=== PATIENT | female | born 1930 | race Caucasian/White ===

== ENCOUNTER 2019-03-31 00:02 | Inpatient (IN) ==
[2019-03-31] MEDS ORDERED: ONDANSETRON INJ 2 MG/ML 2 ML VIAL IV STA (00:18)
[2019-03-31] MEDS: SODIUM CHLORIDE 0.9% 500 ML IV SCH ×2 (00:55→07:07)
[2019-03-31] MEDS: fentaNYL citrate 100 MCG/2 ML VIAL IV PRN ×2 (00:55→02:39)
[2019-03-31 01:14] LABS: Basophils # (auto) 0.02 K/uL (0-0.2); Basophils % (auto) 0.2 %; Eosinophils # (auto) 0.05 K/uL (0-0.5); Eosinophils % (auto) 0.6 %; Hematocrit (blood only) 38.8 % (37-47); Hemoglobin 13.4 g/dL (12.0-16.0); Immature Granulocytes # (auto) 0.02 K/uL (0.00-0.02); Immature Granulocytes % (auto) 0.2 %; Lymphocytes # (auto) 1.03 K/uL (1.2-3.4); Lymphocytes % (auto) 11.7 %; Mean Corpuscular Hemoglobin 28.6 pg (25-34); Mean Corpuscular Hgb Conc 34.5 g/dL (32-36); Mean Corpuscular Volume 82.7 fL (80-100); Mean Platelet Volume 9.5 fL (7.4-10.4); Monocytes # (auto) 1.09 K/uL (0.11-0.59); Monocytes % (auto) 12.4 %; Neutrophils # (auto) 6.59 K/uL (1.4-6.5); Neutrophils % (auto) 74.9 %; Platelet Count 217 K/uL (130-400); RDW Coefficient of Variation 14.3 % (11.5-14.5); RDW Standard Deviation 42.4 fL (36.4-46.3); Red Blood Count 4.69 M/uL (4.2-5.4)
[2019-03-31 01:32] LABS: Alanine Aminotransferase 17 U/L (12-78); Albumin Level 3.2 gm/dl (3.4-5.0); Aspartate Aminotransferase 13 U/L (15-37); BUN Creatinine Ratio 19.7 (10-20); Blood Urea Nitrogen 24 mg/dl (7-18); Calcium 8.8 mg/dl (8.5-10.1); Carbon Dioxide 25 mmol/L (21-32); Chloride 106 mmol/L (98-107); Est GFR (African American) 46.1; Est GFR (Non-African American) 39.8; Glucose 183 mg/dl (70-99); Lipase 28 U/L (73-393); Magnesium 1.8 mg/dl (1.8-2.4); Potassium 3.4 mmol/L (3.5-5.1); Sodium 139 mmol/L (136-145)
[2019-03-31 01:43] LABS: Albumin Globulin Ratio 1.1 (0.9-2); Alkaline Phosphatase 118 U/L (45-117); Bilirubin,Total 0.7 mg/dl (0.2-1); Thyroid Stimulating Hormone 0.281 uIu/ml (0.300-4.500); Total Protein 6.2 gm/dl (6.4-8.2); Troponin I < 0.015 ng/ml (0-0.045)
[2019-03-31] MEDS ORDERED: IOVERSOL 100ml IV PRN (02:24)
[2019-03-31] MEDS ORDERED: ACETAMINOPHEN 1,000 MG/100 ML VIAL IV STA (03:03)
[2019-03-31] MEDS ORDERED: HydrALAZINE HCL 20 MG/ML VIAL IV ONE (03:04)
[2019-03-31] MEDS ORDERED: POTASSIUM CHLORIDE 20 MEQ TABCR PO STA (05:05)
[2019-03-31] MEDS ORDERED: ACETAMINOPHEN 325 MG TAB PO PRN (05:05)
[2019-03-31] MEDS: HydrALAZINE HCL 20 MG/ML VIAL IV PRN ×3 (06:19→22:14)
[2019-03-31] MEDS: SODIUM CHLORIDE 0.9% 1000ML 1,000 ML IV SCH ×2 (06:20→16:04)
--- NOTE | 2019-03-31 06:34 | CT Scan Report ---
CT abd pelvis oral and IV con CT DOSE: 287.72 mGy.cm HISTORY: Pain central/left abd pain TECHNIQUE: Multiaxial CT images of the abdomen and pelvis were performed following the use of intrave nous and oral contrast. A dose lowering technique was utilized adhering to the principles of ALARA. COMPARISON STUDY: None. FINDINGS: Small bilateral pleural effusions. Splenic infarct versus laceration occupying 40-50% of sp lenic volume. Considerable atherosclerotic change of the abdominal and pelvic arterial vasculature. A trophy left kidney. No evidence for renal hydronephrosis. Liver is uniform throughout. Pancreas is unremarkable. Mild nonobstructive ileus. Bowel pattern overall is nonobstructive. Bladder is midline. No free fluid within the pelvic cul-de-sac IMPRESSION: 1. Probable splenic infarct occupying 40% of the mid and upper pole left splenic volume.. 2. Moderate atrophy left kidney. 3. Mild nonobstructive ileus. 4. Small bilateral pleural effusions. The above report was generated using voice recognition software. It may contain grammatical, syntax or spelling errors. Electronically signed by: Anthony Mosquera M.D. 03/31/2019 6:33 AM
--- NOTE | 2019-03-31 07:23 | Emergency Department Note ---
Entered by Kelly Capps acting as a scribe for Mimi Martin DO History of Present Illness General Chief complaint: Abdominal Pain Stated complaint: ABD PAIN Time Seen by Provider: 03/31/19 00:12 Source: patient and family (daughter) History of Present Illness Onset (ago): day(s) 1 Location: abdomen Radiation: back Pain Consistency: + constant Quality: + sharp Relieved By: + none Exacerbated By: + movement Associated symptoms: + denies other symptoms (denies blood in stool, denies bloating) and + loss of appetite; no nausea/vomiting Treatments prior to arrival: none The patient is a 88 year old female who presents to the Emergency Room with complaints of abdominal pain that started 1 day ago. She stated this morning the pain was in the center of her stomach, but had started to radiate over to her left side and back. The patient notes that the pain in constant and sharp, and has not been able to move much. She denies vomiting, bloating, and blood in her stool. The pain is exacerbated with movement, and the patient has not been able to eat. She reports a loss of appetite as well, and was only able to get down a few spoonfuls of chicken broth today. Her daughter states that she started with diarrhea today, which has since subsided. No black or bloody stools. She also notes that her mother has had a colonoscopy before, which came back normal. She is currently on blood pressure medication. Her daughter notes that her mother lost 60 pounds within the last year, and is now at 120. She does report the swelling in her legs is normal at baseline. 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) DM type 2 (diabetes mellitus, type 2) (Chronic) HTN (hypertension) (Chronic) Surgical History H/O repair of left rotator cuff (Chronic) H/O varicose vein stripping (Chronic) History of appendectomy (Chronic) History of hysterectomy (Chronic) Social History Preferred Language: Thai 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 Ability: Effective [employer] 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 and A total of 10 systems reviewed and were otherwise negative Physical Exam Vital Signs Vital Signs - 24 hr 03/31/19 00:06 03/31/19 01:01 03/31/19 01:07 Temperature 36.8 C 36.8 C Temperature Source Oral Oral Pulse Rate 80 69 Pulse Rate [Left Apical] 78 Pulse Rate from SpO2 Sensor Pulse Strength [Left Apical] Normal Respiratory Rate 18 17 18 Respiratory Effort / Characteristics Non-Labored Spontaneous Non-Labored Spontaneous Respiratory Depth Normal Normal Blood Pressure 172/67 H 184/68 H Blood Pressure [Right Arm] 184/68 H Blood Pressure Mean 102 143 Blood Pressure Mean [Right Arm] 106 Pulse Oximetry 95 95 Oxygen Delivery Method Room Air Room Air Oxygen Flow Rate Sepsis Recent Fever Within 48 Hours No Sepsis Action Taken by Nursing No Action Required Oxygen Flow Rate - Titration Pulse Oximetry Post Tiitration 03/31/19 01:30 03/31/19 02:00 03/31/19 02:38 Temperature Temperature Source Pulse Rate 70 67 73 Pulse Rate [Left Apical] Pulse Rate from SpO2 Sensor 71 Pulse Strength [Left Apical] Respiratory Rate 21 18 23 Respiratory Effort / Characteristics Respiratory Depth Blood Pressure 184/101 H 199/68 H 192/71 H Blood Pressure [Right Arm] Blood Pressure Mean 153 97 146 Blood Pressure Mean [Right Arm] Pulse Oximetry 92 Oxygen Delivery Method Oxygen Flow Rate Sepsis Recent Fever Within 48 Hours Sepsis Action Taken by Nursing Oxygen Flow Rate - Titration Pulse Oximetry Post Tiitration 03/31/19 02:40 03/31/19 02:47 03/31/19 03:00 Temperature 36.8 C Temperature Source Oral Pulse Rate 66 Pulse Rate [Left Apical] 71 Pulse Rate from SpO2 Sensor 66 Pulse Strength [Left Apical] Normal Respiratory Rate 18 19 Respiratory Effort / Characteristics Non-Labored Spontaneous Respiratory Depth Normal Blood Pressure 201/72 H Blood Pressure [Right Arm] 192/71 H Blood Pressure Mean 133 Blood Pressure Mean [Right Arm] 111 Pulse Oximetry 92 84 L 98 Oxygen Delivery Method Room Air Room Air Nasal Cannula Oxygen Flow Rate 0 Sepsis Recent Fever Within 48 Hours Sepsis Action Taken by Nursing Oxygen Flow Rate - Titration 3 Pulse Oximetry Post Tiitration 94 03/31/19 03:02 03/31/19 03:25 03/31/19 03:30 Temperature Temperature Source Pulse Rate 66 71 71 Pulse Rate [Left Apical] Pulse Rate from SpO2 Sensor 66 71 67 Pulse Strength [Left Apical] Respiratory Rate 16 25 H 17 Respiratory Effort / Characteristics Respiratory Depth Blood Pressure 195/68 H 169/76 H 162/60 H Blood Pressure [Right Arm] Blood Pressure Mean 137 130 108 Blood Pressure Mean [Right Arm] Pulse Oximetry 98 97 95 Oxygen Delivery Method Oxygen Flow Rate Sepsis Recent Fever Within 48 Hours Sepsis Action Taken by Nursing Oxygen Flow Rate - Titration Pulse Oximetry Post Tiitration 03/31/19 04:00 Temperature Temperature Source Pulse Rate 69 Pulse Rate [Left Apical] Pulse Rate from SpO2 Sensor 69 Pulse Strength [Left Apical] Respiratory Rate 20 Respiratory Effort / Characteristics Respiratory Depth Blood Pressure 173/66 H Blood Pressure [Right Arm] Blood Pressure Mean 127 Blood Pressure Mean [Right Arm] Pulse Oximetry 97 Oxygen Delivery Method Oxygen Flow Rate Sepsis Recent Fever Within 48 Hours Sepsis Action Taken by Nursing Oxygen Flow Rate - Titration Pulse Oximetry Post Tiitration GENERAL: alert, uncomfortable, in mild distress, non-toxic EYE EXAM: normal conjunctiva, PERRL and EOM's grossly intact OROPHARYNX: no exudate, no erythema, lips, buccal mucosa, and tongue normal. Mildly dry mucous membranes. NECK: supple, no nuchal rigidity, no adenopathy, non-tender LUNGS: Clear to auscultation. Normal chest wall mechanics, no w/r/r HEART: no murmurs, S1 normal and S2 normal ABDOMEN: Pain with palpation of the left mid and left lower abdomen. abdomen soft, normo-active bowel sounds, no masses, no rebound or guarding. BACK: Back is symmetrical on inspection and there is no deformity, no midline tenderness, no CVA tenderness. SKIN: no rashes and no bruising UPPER EXTREMITIES: upper extremities are grossly normal. FROM, nml pulses b/l. LOWER EXTREMITIES: 1+ chronic appearing edema noted to right lower extremity. FROM, nml pulses b/l. NEURO EXAM: Normal sensorium, cranial nerves II-XII grossly intact, normal speech, no gross weakness of arms, no gross weakness of legs. Course Course 0014: The patient was evaluated in room B11B. A complete history and physical exam was performed. 0319: I updated the patient and daughter on her imaging results. She is still having pain, but her blood pressure has improved after medication. 0334: I spoke to Dr. Barry, [facility] hospitalist, regarding the patient. He agreed to take over care of the patient, who is agreeable and will stay for further evaluation. Administered Medications Hydralazine HCl (Hydralazine Hcl) 5 mg IV Q6H PRN PRN Reason: Hypertension Stop: 04/30/19 05:04 Last Admin: 03/31/19 06:19 Dose: 5 mg Documented by: [id number] Sodium Chloride (Nss 1000ml) 1,000 mls @ 100 mls/hr IV .Q10H WYATT Stop: 04/30/19 05:04 Last Admin: 03/31/19 06:20 Dose: 100 mls/hr Documented by: [id number] Discontinued Medications Fentanyl Citrate (Fentanyl Citrate) 50 mcg IV Q15M PRN PRN Reason: Pain Stop: 04/14/19 00:17 Last Admin: 03/31/19 02:39 Dose: 50 mcg Documented by: [id number] Admin: 03/31/19 00:55 Dose: 50 mcg Documented by: [id number] Hydralazine HCl (Hydralazine Hcl) 5 mg IV NOW ONE Stop: 03/31/19 03:05 Last Admin: 03/31/19 03:14 Dose: 5 mg Documented by: [id number] Sodium Chloride (Nss) 500 mls @ 125 mls/hr IV .Q4H WYATT Stop: 04/30/19 00:29 Last Admin: 03/31/19 07:07 Dose: Not Given Documented by: [id number] Infusion: 03/31/19 04:25 Dose: 0 mls/hr Documented by: [id number] Admin: 03/31/19 00:55 Dose: 125 mls/hr Documented by: [id number] Acetaminophen (Ofirmev) 1,000 mg in 100 mls @ 400 mls/hr IV NOW STA Stop: 03/31/19 03:17 Last Infusion: 03/31/19 04:26 Dose: 0 mls/hr Documented by: [id number] Admin: 03/31/19 03:14 Dose: 400 mls/hr Documented by: [id number] Ioversol (Optiray 320 100ml) 94 ml IV ONCE PRN PRN Reason: Interaction Checking Stop: 04/04/19 02:23 Last Admin: 03/31/19 02:24 Dose: 94 ml Documented by: [id number] Ondansetron HCl (Zofran) 4 mg IV NOW STA Stop: 03/31/19 00:19 Last Admin: 03/31/19 00:55 Dose: 4 mg Documented by: [id number] Potassium Chloride (Klor-Con M20) 20 meq PO NOW STA Stop: 03/31/19 05:06 Last Admin: 03/31/19 06:20 Dose: 20 meq Documented by: [id number] Medical Decision Making Differential Diagnosis Differential diagnosis includes: appendicitis, diverticulitis, PUD, biliary pathology, UTI, pancreatitis, obstruction, mesenteric ischemia, aortic pathology, infections, inflammatory bowel disease, renal colic, as well as others were entertained. Medical Records Attestation: I reviewed the patient's medical records. Home Medications Current Medication List: was personally reviewed by me Laboratory Data Attestation: I reviewed the patient's lab results. Result diagrams: 03/31/19 01:06 03/31/19 01:06 Lab Results 03/31/19 03/31/19 03/31/19 Range/Units 00:47 01:06 01:06 WBC 8.80 (4.8-10.8) K/uL RBC 4.69 (4.2-5.4) M/uL Hgb 13.4 (12.0-16.0) g/dL Hct 38.8 (37-47) % MCV 82.7 (80-100) fL MCH 28.6 (25-34) pg MCHC 34.5 (32-36) g/dL RDW Std Deviation 42.4 (36.4-46.3) fL RDW Coeff of Dion 14.3 (11.5-14.5) % Plt Count 217 (130-400) K/uL MPV 9.5 (7.4-10.4) fL Immature Gran % (Auto) 0.2 % Neut % (Auto) 74.9 % Lymph % (Auto) 11.7 % [place] % (Auto) 12.4 % Eos % (Auto) 0.6 % Baso % (Auto) 0.2 % Immature Gran # (Auto) 0.02 (0.00-0.02) K/uL Neut # (Auto) 6.59 H (1.4-6.5) K/uL Lymph # (Auto) 1.03 L (1.2-3.4) K/uL [place] # (Auto) 1.09 H (0.11-0.59) K/uL Eos # (Auto) 0.05 (0-0.5) K/uL Baso # (Auto) 0.02 (0-0.2) K/uL Sodium 139 (136-145) mmol/L Potassium 3.4 L (3.5-5.1) mmol/L Chloride 106 (98-107) mmol/L Carbon Dioxide 25 (21-32) mmol/L Anion Gap 8.0 (3-11) BUN 24 H (7-18) mg/dl Creatinine 1.22 H (0.6-1.2) mg/dl Est Cr Clr Drug Dosing Not Reportable Est GFR ( Amer) 46.1 Est GFR (Non-Af Amer) 39.8 BUN/Creatinine Ratio 19.7 (10-20) Glucose 183 H (70-99) mg/dl POC Lactic Acid Kevan 0.84 L (0.90-1.70) mmol/L Calcium 8.8 (8.5-10.1) mg/dl Magnesium 1.8 (1.8-2.4) mg/dl Total Bilirubin 0.7 (0.2-1) mg/dl AST 13 L (15-37) U/L ALT 17 (12-78) U/L Alkaline Phosphatase 118 H (45-117) U/L Troponin I < 0.015 (0-0.045) ng/ml Total Protein 6.2 L (6.4-8.2) gm/dl Albumin 3.2 L (3.4-5.0) gm/dl Globulin 3.0 (2.5-4.0) gm/dl Albumin/Globulin Ratio 1.1 (0.9-2) Lipase 28 L (73-393) U/L TSH 0.281 L (0.300-4.500) uIu/ml Imaging Data Radiologist's Impression: Radiology results as stated below per my review and the radiologist's interpretation: CT ABDOMEN & PELVIS With Contrast: Splenic infarct involving approximately 25% of the splenic parenchyma. 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 Atrophic left kidney also likelye related to vascular insufficiency. Small bilateral pleural effusions. Status post hysterectomy. Sigmoid diverticulosis without diverticullitis. Radiologist: Ranulfo Cabrera MD Study ready at 02:44 and initial results transmitted at 03:12 ECG Data Attestation: I personally reviewed and interpreted this ECG as follows: Indication: + abdominal pain Rate (beats per minute): 71 Rhythm: + sinus rhythm ECG Intervals/blocks: + Left bundle branch block ECG [place]: + Left axis deviation ECG Findings: + Other (no acute ischemic changes) Comparison ECG Date: from (02/10/16) Change: the following changes noted (LBBB is new from previous ) Blood Pressure Blood Pressure Findings: Elevated blood pressure Blood Pressure Disposition: further management by hospitalist JOHNATHAN Jean-Baptiste Patient here in mild distress with persistent abdominal pain and episode of vomiting as well as an episode of diarrhea. Given advanced age, labs drawn and sent, IV fluids started, and patient sent for CT imaging. Patient remained hemodynamically stable throughout. Patient did have brief episode of hypoxia after she was given IV fentanyl for pain control. Additional IV Tylenol was added. IV Zofran was used for nausea. Discussed with patient all results. Likely splenic infarct related to atherosclerotic disease. Upon additional bedside discussion, patient's daughter bedside states the patient has not always compliant with her medications including her current statin. Patient did have persistently elevated blood pressure here despite additional pain control. Additional dose of hydralazine was added. No evidence of bacteremia/sepsis, bowel obstruction, GI bleed, perforation, DKA, or AMARIS. Patient and daughter aware of all results were in agreement with plan for additional monitoring, pain control, and evaluation. Impression & Plan Abdominal pain, Hypertension, Splenic infarct Discharge Plan Visit Data *Final* Discharge Date/Time: 03/31/19 04:24 Chief Complaint: Abdominal Pain Stated Complaint: ABD PAIN ED Provider: Mimi Martin Discharge Problem: Abdominal pain, Hypertension, Splenic infarct Patient Disposition: Admitted As Inpatient Discharge Instructions Interventions: ED Discharge Assessment Last Done: 03/31/19 04:24 Discharge Problem: Abdominal pain Qualifiers: Abdominal location: unspecified location Qualified Code(s): R10.9 - Unspecified abdominal pain Hypertension Qualifiers: Hypertension type: unspecified Qualified Code(s): I10 - Essential (primary) hypertension The scribe's documentation has been prepared under my direction and personally reviewed by me in its entirety. I confirm that the note above accurately reflects all work, treatment, procedures, and medical decision making performed by me.
[2019-03-31 07:46] LABS: Chol HDL Ratio 4; Cholesterol 130 mg/dl (0-200); HDL Cholesterol 37 mg/dl; LDL Cholesterol Calculated 73 mg/dl; Triglycerides 99 mg/dl (0-150); VLDL Cholesterol 20 mg/dl
[2019-03-31] MEDS: ASPIRIN 81 MG ECTAB PO SCH (08:22)
[2019-03-31] MEDS: cloNIDine HCL 0.3 MG TAB PO SCH ×2 (08:22→20:08)
[2019-03-31] MEDS ORDERED: carvediloL 12.5 MG TAB PO SCH (09:00)
[2019-03-31] MEDS: AMLODIPINE BESYLATE 5 MG TAB PO SCH (09:29)
--- NOTE | 2019-03-31 10:03 | Surgery Consultation ---
Date of Consultation March 31, 2019 Assessment & Plan (1) Splenic infarct: 88-year-old female with partial splenic infarct likely secondary to significant atherosclerotic disease related to thromboembolic event. Splenic infarction is managed nonoperatively with pain control. Typically patients are anticoagulated as this is likely due to thromboembolic event in the absence of sickle cell anemia. Agree with work-up for determining the underlying source. Her weight loss is concerning, and may represent chronic mesenteric ischemia leading to food fear. We discussed with the patient whether she would want any life-saving operative interventions, and she said that she would not want surgery. No surgical intervention indicated at this time Agree with work-up for source of thromboembolic splenic infarction Consider anticoagulation Surgery will follow peripherally, call with questions or concerns (2) CHF due to valvular disease: (3) DM type 2 (diabetes mellitus, type 2): (4) Hypertension: History of Present Illness Attending Physician: Brisa Lopez MD History of Present Illness 88-year-old female admitted with abdominal pain and splenic infarction. She has been losing weight over the past year, she states approximately 60 to 70 pounds. She denies any food fear or pain after eating, though she does not have much of an appetite does feel ill after eating. Yesterday she started having significant left-sided abdominal pain that progressed. She was taken to the emergency department where a CT scan of her abdomen showed partial infarction of her spleen. On CT she does have significant atherosclerotic disease at the orifice of the celiac trunk and SMA. 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) DM type 2 (diabetes mellitus, type 2) (Chronic) HTN (hypertension) (Chronic) Surgical History H/O repair of left rotator cuff (Chronic) H/O varicose vein stripping (Chronic) History of appendectomy (Chronic) History of hysterectomy (Chronic) Social History Preferred Language: Afghan 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 Ability: Effective Net Mobile Developer Required: No Beliefs That Will Affect Care: None Current Living Situation: Family Current Living Situation Comment: lives w/ dtr Feels Safe at Home: Yes Smoking Status: Former smoker Hx Alcohol Use: No Hx Substance Use: No Review of Systems Review of Systems: All systems reviewed & are unremarkable except as noted in HPI & below Physical Exam Constitutional: WD/WN, vitals as above Eyes: PERRL, conjunctivae normal, anicteric sclerae ENMT: external ear and nose normal, oropharynx normal Neck: trachea midline, no thyromegaly Respiratory: normal respiratory effort, lungs clear to auscultation Cardiovascular: RRR, no murmur, no edema Gastrointestinal (Abdomen): Percussion/Palpation: + abdomen tender (Mild tenderness to palpation in the left upper quadrant and left flank) and abdomen soft; no guarding, abdomen not rigid and no hepatosplenomegaly Musculoskeletal: no cyanosis or clubbing, extremities motor strength 5/5 Skin: no rashes, warm and dry Neurologic: PERRL, EOMI, accommodation nl, no face palsy, no dysarthria Psychiatric: A+Ox3, euthymic affect Lymphatic: no cervical or axillary lymphadenopathy Results & Data Vital Signs (Past 12 Hours) Vital Signs Temp Pulse Pulse Resp BP BP Pulse Ox 03/31/19 07:23 36.6 C 65 66 17 172/63 H 99 03/31/19 05:00 36.7 C 72 18 177/65 H 94 03/31/19 04:00 69 20 173/66 H 97 03/31/19 03:30 71 17 162/60 H 95 03/31/19 03:25 71 25 H 169/76 H 97 03/31/19 03:02 66 16 195/68 H 98 03/31/19 03:00 66 19 201/72 H 98 03/31/19 02:47 84 L 03/31/19 02:40 36.8 C 71 18 192/71 H 92 03/31/19 02:38 73 23 192/71 H 92 03/31/19 02:00 67 18 199/68 H 03/31/19 01:30 70 21 184/101 H 03/31/19 01:07 36.8 C 78 18 184/68 H 95 03/31/19 01:01 69 17 184/68 H 03/31/19 00:06 36.8 C 80 18 172/67 H 95 Laboratory Results Laboratory Results - last 24 hr 03/31/19 03/31/19 03/31/19 00:47 01:06 01:06 WBC 8.80 RBC 4.69 Hgb 13.4 Hct 38.8 MCV 82.7 MCH 28.6 MCHC 34.5 RDW Std Deviation 42.4 RDW Coeff of Dion 14.3 Plt Count 217 MPV 9.5 Immature Gran % (Auto) 0.2 Neut % (Auto) 74.9 Lymph % (Auto) 11.7 [place] % (Auto) 12.4 Eos % (Auto) 0.6 Baso % (Auto) 0.2 Immature Gran # (Auto) 0.02 Neut # (Auto) 6.59 H Lymph # (Auto) 1.03 L [place] # (Auto) 1.09 H Eos # (Auto) 0.05 Baso # (Auto) 0.02 Sodium 139 Potassium 3.4 L Chloride 106 Carbon Dioxide 25 Anion Gap 8.0 BUN 24 H Creatinine 1.22 H Est Cr Clr Drug Dosing Not Reportable Est GFR ( Amer) 46.1 Est GFR (Non-Af Amer) 39.8 BUN/Creatinine Ratio 19.7 Glucose 183 H POC Lactic Acid Kevan 0.84 L Calcium 8.8 Magnesium 1.8 Total Bilirubin 0.7 AST 13 L ALT 17 Alkaline Phosphatase 118 H Troponin I < 0.015 Total Protein 6.2 L Albumin 3.2 L Globulin 3.0 Albumin/Globulin Ratio 1.1 Triglycerides Cholesterol LDL Cholesterol, Calc VLDL Cholesterol, Calc HDL Cholesterol Cholesterol/HDL Ratio Lipase 28 L TSH 0.281 L 03/31/19 06:50 WBC RBC Hgb Hct MCV MCH MCHC RDW Std Deviation RDW Coeff of Dion Plt Count MPV Immature Gran % (Auto) Neut % (Auto) Lymph % (Auto) [place] % (Auto) Eos % (Auto) Baso % (Auto) Immature Gran # (Auto) Neut # (Auto) Lymph # (Auto) [place] # (Auto) Eos # (Auto) Baso # (Auto) Sodium Potassium Chloride Carbon Dioxide Anion Gap BUN Creatinine Est Cr Clr Drug Dosing Est GFR ( Amer) Est GFR (Non-Af Amer) BUN/Creatinine Ratio Glucose POC Lactic Acid Kevan Calcium Magnesium Total Bilirubin AST ALT Alkaline Phosphatase Troponin I Total Protein Albumin Globulin Albumin/Globulin Ratio Triglycerides 99 Cholesterol 130 LDL Cholesterol, Calc 73 VLDL Cholesterol, Calc 20 HDL Cholesterol 37 Cholesterol/HDL Ratio 4 Lipase TSH Diagnostic Findings CT abd pelvis oral and IV con CT DOSE: 287.72 mGy.cm HISTORY: Pain central/left abd pain TECHNIQUE: Multiaxial CT images of the abdomen and pelvis were performed following the use of intravenous and oral contrast. A dose lowering technique was utilized adhering to the principles of ALARA. COMPARISON STUDY: None. FINDINGS: Small bilateral pleural effusions. Splenic infarct versus laceration occupying 40-50% of splenic volume. Considerable atherosclerotic change of the abdominal and pelvic arterial vasculature. Atrophy left kidney. No evidence for renal hydronephrosis. Liver is uniform throughout. Pancreas is unremarkable. Mild nonobstructive ileus. Bowel pattern overall is nonobstructive. Bladder is midline. No free fluid within the pelvic cul-de-sac IMPRESSION: 1. Probable splenic infarct occupying 40% of the mid and upper pole left splenic volume.. 2. Moderate atrophy left kidney. 3. Mild nonobstructive ileus. 4. Small bilateral pleural effusions. PG Care Time/CCT Total # of Minutes Spent Total Time Spent with Patient: Total time spent is greater than 50% in coordination of care (as documented) at patient's floor/unit and/or counseling patient: (1) Hypertension Hypertension type: unspecified Qualified Code(s): I10 - Essential (primary) hypertension
--- NOTE | 2019-03-31 10:20 | Ultrasound Report ---
US venous doppler LE RT CLINICAL HISTORY: rt lower extremity swelling, dvt? PAIN. EDEMA. COMPARISON STUDY: No previous studies for comparison. FINDINGS: Real-time and color flow Doppler imaging were performed. Flow was seen within the femoral, popliteal and calf veins with no intraluminal thrombus demonstrated. The saphenous vein is patent. IMPRESSION: No evidence of deep venous thrombosis. The above report was generated using voice recognition software. It may contain grammatical, syntax or spelling errors. Electronically signed by: Anthony Mosquera M.D. 03/31/2019 10:18 AM
--- NOTE | 2019-03-31 11:30 | Ultrasound Report ---
US thyroid HISTORY: Mass ENLARGEMENT? COMPARISON: None. FINDINGS: Right lobe: Maximum dimension 4.6 cm. Several small calcifications. Several small nodules less than 6 mm. Left lobe: Maximum dimension 6 cm. Several small nodules are present. Largest measures 1.3 cm and lo wer pole left thyroid. Isthmus: No nodules. IMPRESSION: 1. Moderate thyroid inhomogeneity. 2. Several small nodules bilaterally. 3. 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 The above report was generated using voice recognition software. It may contain grammatical, syntax or spelling errors. Electronically signed by: Anthony Mosquera M.D. 03/31/2019 11:29 AM
--- NOTE | 2019-03-31 15:01 | Hospitalist Progress Note ---
Date of Service March 31, 2019 Assessment & Plan (1) Abdominal pain: (2) Splenic infarct: LUQ pain CT show splenic infarct Patient also has calcification in the aorta in my review of the images She also reports Right LE DVT many years ago for which she was on coumadin for some months. Right LE doppler negative for DVT Will get portal venous doppler to look for possible clot Echo report noted. 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 (3) Hypertension: BP is currently poorly controlled Likely due to pain Optimize pain control Continue carvedilol, clonidine, amlodipine Monitor BP. Once pain is well controlled, if still high, will optimize antihypertensives (4) DVT prophylaxis: Hep sq for now Subjective Patient admitted overnight. Reported LUQ abdominal pain started one day ago, sharp, severe, not referred, worse on palpation. Associated with nausea and one episode of loose stool Denied any fevers, chills. Denied any bloody bowel movement Denied any cough, shortness of breath, chest pain Denied any trauma to abdomen Review of Systems Review of Systems: All systems reviewed and unremarkable except for mentioned above. Physical Exam Constitutional: General: Elderly woman, laying in bed, no acute distress Eyes: PERRL, conjunctivae normal, EOM intact bilaterally ENMT: External ear and nose normal, oropharynx normal Neck: Normal visual inspection, no tracheal deviation, no swelling noted Respiratory: Normal respiratory effort, no respiratory distress, lungs clear to auscultation, no crackles and no wheezes Cardiovascular: Pulse is regular with occasional skipped beat, Normal rate, S1 S2 Chest (Breasts): Chest: normal inspection of chest Gastrointestinal (Abdomen): Abdomen is not distended, soft, severe LUQ and LLQ tenderness, no guarding, normal bowel sounds Musculoskeletal: No cyanosis or clubbing, all extremities motor strength 5/5, Right leg bigger than left. Trace edema Skin: No rash noted on gross inspection, No ulcers noted Neurologic: Alert and oriented x 3, No focal weakness, sensation grossly intact Psychiatric: Alert and oriented x 3, euthymic affect, no depressed affect Results & Data Vital Signs (Past 12 Hours) Vital Signs Temp Pulse Pulse Resp BP BP Pulse Ox 03/31/19 14:50 73 03/31/19 11:33 36.7 C 63 19 178/62 H 95 03/31/19 07:23 36.6 C 65 66 17 172/63 H 99 03/31/19 05:00 36.7 C 72 18 177/65 H 94 03/31/19 04:00 69 20 173/66 H 97 03/31/19 03:30 71 17 162/60 H 95 03/31/19 03:25 71 25 H 169/76 H 97 03/31/19 03:02 66 16 195/68 H 98 03/31/19 03:00 66 19 201/72 H 98 Laboratory Results Abnormal lab results 03/31/19 03/31/19 03/31/19 Range/Units 00:47 01:06 01:06 Neut # (Auto) 6.59 H (1.4-6.5) K/uL Lymph # (Auto) 1.03 L (1.2-3.4) K/uL [place] # (Auto) 1.09 H (0.11-0.59) K/uL Potassium 3.4 L (3.5-5.1) mmol/L BUN 24 H (7-18) mg/dl Creatinine 1.22 H (0.6-1.2) mg/dl Glucose 183 H (70-99) mg/dl POC Lactic Acid Kevan 0.84 L (0.90-1.70) mmol/L AST 13 L (15-37) U/L Alkaline Phosphatase 118 H (45-117) U/L Total Protein 6.2 L (6.4-8.2) gm/dl Albumin 3.2 L (3.4-5.0) gm/dl Lipase 28 L (73-393) U/L TSH 0.281 L (0.300-4.500) uIu/ml Diagnostic Findings CT A/P 1. Probable splenic infarct occupying 40% of the mid and upper pole left splenic volume.. 2. Moderate atrophy left kidney. 3. Mild nonobstructive ileus. 4. Small bilateral pleural effusions. (1) Abdominal pain Abdominal location: unspecified location Qualified Code(s): R10.9 - Unspecified abdominal pain (2) Hypertension Hypertension type: unspecified Qualified Code(s): I10 - Essential (primary) hypertension
[2019-03-31] MEDS: HYDROmorphone INJ 0.5 MG/0.5 ML SYR IV PRN (15:46)
--- NOTE | 2019-03-31 16:56 | Cardiology Consultation ---
Date of Consultation March 31, 2019 Assessment & Plan (1) Splenic infarct: (2) HTN (hypertension): (3) LBBB (left bundle branch block): The patient has a new left bundle branch block compared to 2016. Her EKG troponin was negative x1, and I think we can explain her symptoms based on the findings on the CT, I believe the abdominal pain is due to splenic infarction rather than angina at present. In terms of cardiac source of embolism. Telemetry thus far has revealed sinus rhythm on my review without atrial fibrillation. She does however have substrate for atrial fibrillation as she has mild mitral stenosis on her echocardiogram. She has significant mitral annular calcification. Review of her CT images reveal diffuse calcified and noncalcified atherosclerotic plaque in the abdominal aorta and abdominal vasculature. She may have had embolism of a atherosclerotic plaque without thrombus. The echocardiogram also reveals a mobile echodensity in the left atrium that appears to be consistent with a ruptured chordae which correlates with her mitral regurgitation jet well. The piece of this may have embolized also. At present, given her ongoing symptoms I recommend initiating anticoagulation with heparin. She apparently had been on Coumadin for 9 years for past DVT. This was discontinued because her course of treatment was felt to be completed not because of an intolerance. Her blood pressure remains above goal, but I think this is in part due to her pain, and that we anticoagulate her, and provide analgesic discomfort, I would hope that the blood pressure would improve. I also recommend a lactate level which can be trended. Further considerations include proceeding with a transesophageal echocardiogram depending upon her clinical course. Case discussed with Dr. Lopez by phone. History of Present Illness Attending Physician: Brisa Lopez MD History of Present Illness Lety Higuera is an 88 year old female seen in cardiology consultation due to presentation with abdominal pain, and finding of left splenic infarct on CT scan. The patient does not follow with cardiology on a routine basis. She is accompanied by her daughter who describes that the patient was recently admitted in [facility] for a myocardial infarction a little over a week ago. At that time she had presented initially with abdominal pain that then progressed into chest pain. Per the description of the patient and her daughter, it sounds as though the patient was treated conservatively did not have cardiac catheterization. The patient was in her normal state of health and started having first recurrent chest discomfort on , and this resolved and it progressed to abdominal discomfort throughout the day yesterday, [place], until her family brought her to the emergency room overnight last night. Troponin was negative times one measurement on 03/31/19. A CT of the abdomen and pelvis was performed morning in the emergency room with findings of a suspected splenic infarct occupying 40% of the mid and upper pole of the splenic volume per the radiology report. Moderate atrophy of the left kidney was noted. Mild nonobstructive ileus was noted and small bilateral pleural effusions are present. An echocardiogram performed today reviewed independently revealed moderate concentric left ventricular hypertrophy without regional wall motion abnormalities, LVEF normal 55 to 60%. Moderate left atrial dilatation was noted. Mild aortic valve stenosis and moderate aortic valve regurgitation were present. Severe mitral annular calcification was noted with mild mitral stenosis. Moderate to severe mitral regurgitation was present with a posteriorly directed mitral regurgitation jet that hugs the posterior left atrial wall. A 1.6 x 0.5 cm mobile echodensity was noted on the left atrial aspect of the anterior mitral valve consistent with a ruptured cord. Pulmonary hypertension is present with PA systolic pressure in the range of 54 mmHg. 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) DM type 2 (diabetes mellitus, type 2) (Chronic) HTN (hypertension) (Chronic) Surgical History H/O repair of left rotator cuff (Chronic) H/O varicose vein stripping (Chronic) History of appendectomy (Chronic) History of hysterectomy (Chronic) Social History Preferred Language: Bahraini 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 Ability: Effective 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 Beliefs That Will Affect Care: None marital status: / Current Living Situation: Family Current Living Situation Comment: lives w/ dtr Feels Safe at Home: Yes Smoking Status: Former smoker Hx Alcohol Use: No Hx Substance Use: No Review of Systems Review of Systems: All systems reviewed & are unremarkable except as noted in HPI & below Physical Exam Physical Exam: Temp Pulse Resp BP Pulse Ox 37.1 C 86 19 204/72 H 92 03/31/19 15:58 03/31/19 15:58 03/31/19 15:58 03/31/19 15:58 03/31/19 15:58 Constitutional: WD/WN, vitals as above Respiratory: normal respiratory effort, lungs clear to auscultation Cardiovascular: Rate/Rhythm: regular rhythm Heart Sounds: + murmur (II/ systolic murmur heard best in the left apex rating to the left axilla) Vessels: no JVD Extremities: no edema Gastrointestinal (Abdomen): Mild tenderness of the left upper quadrant on palpation Neurologic: PERRL, EOMI, accommodation nl, no face palsy, no dysarthria Results & Data Vital Signs (Past 12 Hours) Vital Signs Temp Pulse Pulse Resp BP Pulse Ox 03/31/19 15:58 37.1 C 86 19 204/72 H 92 03/31/19 15:55 173/62 H 03/31/19 14:50 73 03/31/19 11:33 36.7 C 63 19 178/62 H 95 03/31/19 07:23 36.6 C 65 66 17 172/63 H 99 03/31/19 05:00 36.7 C 72 18 177/65 H 94 Diagnostic Findings EKG performed 03/31/2019 at 12:58 AM: Sinus rhythm at 71 bpm with premature atrial contractions, left bundle branch block, QRS duration 150 ms. Compared to the most recent EKG on file dating back to 02/10/2016, left bundle branch block is new. Medications Administered Current Inpatient Medications Acetaminophen (Tylenol) 650 mg PO Q4H PRN PRN Reason: Pain or Fever Stop: 04/30/19 05:04 Amlodipine Besylate (Norvasc) 10 mg PO DAILY [facility] Stop: 04/30/19 08:59 Last Admin: 03/31/19 09:29 Dose: 10 mg Documented by: Aspirin (Ecotrin Ectab) 81 mg PO DAILY [facility] Stop: 04/30/19 08:59 Last Admin: 03/31/19 08:22 Dose: 81 mg Documented by: Carvedilol (Coreg) 12.5 mg PO BID [facility] Stop: 04/30/19 08:59 Last Admin: 03/31/19 08:21 Dose: 12.5 mg Documented by: Clonidine HCl (Catapress) 0.3 mg PO BID [facility] Stop: 04/30/19 08:59 Last Admin: 03/31/19 08:22 Dose: 0.3 mg Documented by: Heparin Sodium (Porcine) (Heparin Sodium (Porcine)) 5,000 units SQ Q8 [facility] Stop: 04/30/19 21:59 Heparin Sodium/Dextrose () 1 ea IV NOW STA; Protocol Stop: 03/31/19 17:02 Hydralazine HCl (Hydralazine Hcl) 5 mg IV Q6H PRN PRN Reason: Hypertension Stop: 04/30/19 05:04 Last Admin: 03/31/19 16:06 Dose: 5 mg Documented by: Hydromorphone HCl (Dilaudid) 0.5 mg IV Q3H PRN PRN Reason: Pain Stop: 04/14/19 05:04 Last Admin: 03/31/19 15:46 Dose: 0.5 mg Documented by: Sodium Chloride (Nss 1000ml) 1,000 mls @ 100 mls/hr IV .Q10H [facility] Stop: 04/30/19 05:04 Last Admin: 03/31/19 16:04 Dose: 100 mls/hr Documented by: Heparin Sodium/Dextrose (Heparin Sodium/Dextrose) 25,000 units in 500 mls @ 0.02 mls/hr IV .Q24H [facility]; Protocol Stop: 04/30/19 17:14 Nitroglycerin (Nitrostat) 0.4 mg SL UD PRN PRN Reason: Chest Pain Stop: 04/30/19 05:04 Ondansetron HCl (Zofran) 4 mg IV Q6H PRN PRN Reason: Nausea Stop: 04/30/19 05:04
[2019-03-31] MEDS ORDERED: Heparin IV Low Dose *NO* Bolus IV SCH (17:05)
[2019-03-31] MEDS: ONDANSETRON INJ 2 MG/ML 2 ML VIAL IV PRN (17:12)
--- NOTE | 2019-03-31 17:17 | Ultrasound Report ---
Study: Doppler evaluation of the portal and hepatic venous system HISTORY: Venous thrombosis FINDINGS: The major venous structures including splenic vein, portal veins, as well as hepatic veins appear unremarkable. Flow is antegrade. No evidence for thrombus. IMPRESSION:: 1. Normal study. 2. No evidence for thrombus formation within the portal, splenic, or hepatic venous systems. Electronically signed by: Anthony Mosquera M.D. 03/31/2019 5:16 PM
[2019-03-31 17:47] LABS: Basophils # (auto) 0.02 K/uL (0-0.2); Basophils % (auto) 0.2 %; Eosinophils % (auto) 0.9 %; Hematocrit (blood only) 39.8 % (37-47); Hemoglobin 13.3 g/dL (12.0-16.0); Immature Granulocytes # (auto) 0.06 K/uL (0.00-0.02); Immature Granulocytes % (auto) 0.5 %; Lymphocytes # (auto) 1.01 K/uL (1.2-3.4); Lymphocytes % (auto) 8.9 %; Mean Corpuscular Volume 83.8 fL (80-100); Mean Platelet Volume 9.3 fL (7.4-10.4); Monocytes # (auto) 1.54 K/uL (0.11-0.59); Monocytes % (auto) 13.6 %; Neutrophils # (auto) 8.62 K/uL (1.4-6.5); Neutrophils % (auto) 75.9 %; Platelet Count 225 K/uL (130-400); RDW Coefficient of Variation 14.5 % (11.5-14.5); RDW Standard Deviation 44.6 fL (36.4-46.3); Red Blood Count 4.75 M/uL (4.2-5.4); White Blood Count 11.35 K/uL (4.8-10.8)
[2019-03-31 18:07] LABS: INR 1.1 (0.9-1.1); Partial Thromboplastin Time 27.3 Seconds (21.0-31.0); Prothrombin Time 11.5 Seconds (9.0-12.0)
[2019-03-31] MEDS: HEPARIN SODIUM/DEXTROSE 25,000 UNITS/500 ML BAG IV SCH (18:09)
[2019-03-31] MEDS: carvediloL 25 MG TAB PO SCH (18:13)
[2019-03-31] MEDS: ATORVASTATIN 20 MG TAB PO SCH (18:13)
[2019-03-31 18:28] LABS: Mean Corpuscular Hgb Conc 33.4 g/dL (32-36)
--- NOTE | 2019-03-31 19:56 | History and Physical Report ---
DATE OF ADMISSION: 03/31/2019 CHIEF COMPLAINT: Severe abdominal pain. 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 Lives with her daughter. She is currently living in [place] and sometimes come to [place]. Last time she saw her family doctor at [place] in 2016. She says currently she is following with doctors in [place] .They are visiting [place] and she is not feeling well since yesterday. Since 24 hours, she is having significant left upper quadrant abdominal pain, also some nausea. She had few episode of diarrhea yesterday. No blood in the stools. The diarrhea has improved now. Poor appetite because of pain and nausea, feeling hot and cold, no headaches. Sometimes she gets dizziness, vision is okay. Hearing is okay. Has some runny nose, no sore throat since yesterday. No difficulty swallowing, no chest pain, no shortness of breath. At home, she ambulates without any help. She has chronic swelling in the right lower extremity. No rash. Normal bladder movements. No burning micturitions, no hematuria, no blood in the stools. Currently with the pain medication, pain has improved. Resting comfortably. CAT scan unofficial report shows space splenic infarct. ALLERGIES: PENICILLINS, QUINOLONES, ASPIRIN. PAST MEDICAL HISTORY: As mentioned above. PAST SURGICAL HISTORY: Lasik surgery, appendectomy, left rotator cuff repair, varicose veins x2, gastric ulcer repair, total hysterectomy for fibroids. MEDICATIONS: Seems to be patient currently on amlodipine 10 mg p.o. daily, aspirin 81 mg p.o. daily, Coreg 12.5 mg p.o. b.i.d., clonidine 0.3 mg p.o. b.i.d. FAMILY HISTORY: Significant for father had liver cancer, [place] at age of 50s. Mother had stroke, hypertension, diabetes. Brother has diabetes. brother of [place]. SOCIAL HISTORY: , lives with her daughter. Former smoker, quit smoking 30 years ago. No alcohol use, no drug use. REVIEW OF SYMPTOMS: As per HPI. Rest of review of systems negative. PHYSICAL EXAMINATION: GENERAL: The patient is old and frail, not in acute distress. VITAL SIGNS: Temperature 36.8, pulse 69, respiratory rate 20, blood pressure 173/66, oxygen 97% on room air. HEENT: Pupils equal, round, reactive to light. Left eye has stye NECK: No JVD, no neck masses, no carotid bruits. CARDIOVASCULAR: S1, S2 heard, regular rate and rhythm, no murmur, no gallop. RESPIRATORY SYSTEM: Normal AP diameter. No thyromegaly. No wheezing, no crackles. ABDOMEN: Soft, bowel sounds present. Left upper quadrant tenderness present. Mild guarding, no rigidity. No distention. CENTRAL NERVOUS SYSTEM: Cranial nerves II through XII grossly intact, nonfocal. EXTREMITIES: No edema. Right lower extremity show +1 edema, no erythema seen. LABORATORIES DATA: WBC is 8.8, hemoglobin 13.4, hematocrit 38.8, platelets 217. Sodium 139, potassium 3.4, chloride 106, bicarbonate 25, BUN 24, creatinine 1.22, serum glucose 183, magnesium 1.8, total bilirubin 0.7, AST 13, ALT 17, alkaline phosphatase 118. Troponin I less than 0.015. Lipase 28. TSH 0.28. EKG: Sinus rhythm with PACs, left bundle branch block with rate of 71. IMAGING: CT of abdomen and pelvis, official read pending. ASSESSMENT AND PLAN: This is an 88-year-old female who presents with abdominal pain. 1. Abdominal pain, left upper quadrant for the last 24 hours, had nausea and few episodes of diarrhea yesterday. CAT scan shows splenic infarct.will follow full report. Etiology unclear for splenic infarct. With pain medications, the patient seems to be currently comfortable. We will keep her n.p.o., IV pain medications, IV fluids at normal saline 100 mL per hour. Consult surgery for further recommendations. Also get an echocardiogram to rule out any thromboembolic source, most likely secondary to atherosclerosis. We will follow the official report of the CAT scan. 2. History of hypertension. Continue amlodipine, Coreg, and clonidine, IV hydralazine p.r.n., we will monitor the blood pressure. 3. Abnormal TSH 0.2. We will follow repeat labs with free T4 levels. In 2009, CAT scan showed thyroid abnormality with substernal extension. The patient then seemed not followed on that. We will get thyroid ultrasound. 4. Diabetes, not on medications. We will follow HbA1c levels, currently n.p.o. 5. History of congestive heart failure due to valvular heart disease, seems to be not on diuretics. We will follow echocardiogram. 6. The right lower extremity swelling seems chronic, but will get a Doppler study. possibly from history of varicose vein stripping 7. AMARIS last lab which we have is in 2012 with creatinine 0.7, presently creatinine 1.22. Getting fluids. We will follow the labs in am 7. Deep venous thrombosis prophylaxis, sequential compression devices for now. 8. Disposition: Admit to med/surg tele. Level 1 full code. MTDD
[2019-03-31] MEDS ORDERED: HEPARIN SOD 5,000 UNIT/0.5 ML VIAL SQ SCH (22:00)
[2019-04-01 01:16] LABS: Partial Thromboplastin Ratio 1.2; Partial Thromboplastin Time 32.1 Seconds (21.0-31.0)
[2019-04-01] MEDS ORDERED: HEPARIN IV BOLUS 3,000 UNITS in SYRINGE 0 ML IV ONE (01:21)
[2019-04-01] MEDS: SODIUM CHLORIDE 0.9% 1000ML 1,000 ML IV SCH ×2 (02:18→11:52)
[2019-04-01 05:22] LABS: Appearance Urine Cloudy (Clear); Bacteria Urine Automated 2+ (Negative); Bilirubin Urine Negative (Negative); Blood Urine Negative (Negative); Color Urine Dark Yellow; Epithelial Cell Urine Auto >30 /lpf (0-5); Glucose Urine UA Trace (Negative); Ketones Urine Trace (Negative); Leukocyte Esterase Urine Negative (Negative); Nitrite Urine Negative (Negative); Protein Urine 3+ (Negative); RBC Urine Automated 0-4 /hpf (0-4); Specific Gravity Urine 1.039 (1.000-1.030); Urobilinogen Urine Negative (Negative)
[2019-04-01] MEDS: HydrALAZINE HCL 20 MG/ML VIAL IV PRN (05:23)
[2019-04-01 06:49] LABS: Basophils # (auto) 0.03 K/uL (0-0.2); Basophils % (auto) 0.3 %; Eosinophils # (auto) 0.05 K/uL (0-0.5); Eosinophils % (auto) 0.4 %; Hematocrit (blood only) 37.2 % (37-47); Hemoglobin 12.5 g/dL (12.0-16.0); Immature Granulocytes # (auto) 0.05 K/uL (0.00-0.02); Immature Granulocytes % (auto) 0.4 %; Lymphocytes # (auto) 0.86 K/uL (1.2-3.4); Lymphocytes % (auto) 7.5 %; Mean Corpuscular Hgb Conc 33.6 g/dL (32-36); Mean Corpuscular Volume 83.4 fL (80-100); Mean Platelet Volume 9.6 fL (7.4-10.4); Monocytes # (auto) 1.46 K/uL (0.11-0.59); Monocytes % (auto) 12.7 %; Neutrophils # (auto) 9.08 K/uL (1.4-6.5); Neutrophils % (auto) 78.7 %; Platelet Count 223 K/uL (130-400); RDW Coefficient of Variation 14.8 % (11.5-14.5); RDW Standard Deviation 44.8 fL (36.4-46.3); Red Blood Count 4.46 M/uL (4.2-5.4); White Blood Count 11.53 K/uL (4.8-10.8)
[2019-04-01 07:10] LABS: INR 1.2 (0.9-1.1); Partial Thromboplastin Ratio 1.6; Partial Thromboplastin Time 42.8 Seconds (21.0-31.0); Prothrombin Time 11.9 Seconds (9.0-12.0)
[2019-04-01 07:19] LABS: Albumin Level 2.7 gm/dl (3.4-5.0); BUN Creatinine Ratio 15.3 (10-20); Calcium 8.3 mg/dl (8.5-10.1); Creatinine Clr Calc Pharmacy 28.6 ml/min; Est GFR (African American) 51.7; Est GFR (Non-African American) 44.6; Magnesium 1.7 mg/dl (1.8-2.4); Potassium 3.4 mmol/L (3.5-5.1)
[2019-04-01] MEDS: HYDROmorphone INJ 0.5 MG/0.5 ML SYR IV PRN ×2 (07:21→15:43)
[2019-04-01 07:29] LABS: Albumin Globulin Ratio 0.9 (0.9-2); Bilirubin,Total 0.8 mg/dl (0.2-1); Globulin 2.9 gm/dl (2.5-4.0); Thyroid Stimulating Hormone 0.338 uIu/ml (0.300-4.500); Total Protein 5.6 gm/dl (6.4-8.2)
[2019-04-01] MEDS: ATORVASTATIN 20 MG TAB PO SCH (08:31)
[2019-04-01] MEDS: ASPIRIN 81 MG ECTAB PO SCH (08:31)
[2019-04-01] MEDS: cloNIDine HCL 0.3 MG TAB PO SCH ×2 (08:31→21:09)
[2019-04-01] MEDS: carvediloL 25 MG TAB PO SCH ×2 (08:31→21:09)
[2019-04-01] MEDS: AMLODIPINE BESYLATE 5 MG TAB PO SCH (08:32)
[2019-04-01] MEDS ORDERED: MAGNESIUM SULFATE / D5W 1 GM/100 ML BAG IV ONE (09:00)
[2019-04-01] MEDS ORDERED: POTASSIUM CHLORIDE 20 MEQ TABCR PO ONE (09:00)
[2019-04-01] MEDS ORDERED: POTASSIUM CHLORIDE / WTR 10 MEQ/100 ML PLCT IV ONE (09:30)
[2019-04-01] MEDS ORDERED: HEPARIN IV BOLUS 2,000 UNITS in SYRINGE 0 ML IV ONE ×2 (09:40→16:45)
[2019-04-01 09:44] LABS: Partial Thromboplastin Ratio 1.5; Partial Thromboplastin Time 41.6 Seconds (21.0-31.0)
[2019-04-01 13:15] LABS: BUN Creatinine Ratio 13.5 (10-20); Calcium 8.3 mg/dl (8.5-10.1); Est GFR (African American) 46.1; Est GFR (Non-African American) 39.8; Magnesium 2.1 mg/dl (1.8-2.4)
--- NOTE | 2019-04-01 14:06 | Hospitalist Progress Note ---
Date of Service April 01, 2019 Assessment & Plan (1) Abdominal pain: (2) Splenic infarct: LUQ pain CT show splenic infarct Patient also has calcification in the aorta in my review of the images She also reports Right LE DVT many years ago for which she was on coumadin for sometime Right LE doppler negative for DVT Portal venous duplex neg for VTE in portal, splenic veins Echo report noted. Showed mod dil LA, EF 55-60, severe mitral annular calcification, moderate to severe MR, mobile echodensity on ant mitral leaflet likely ruptured chord Pain control Started on heparin drip yesterday and coumadin today Provided basic coumadin education Planned for LUCRECIA tomorrow NPO PMN (3) Hypertension: BP still elevated but improved control Increased carvedilol yesterday. Will monitor Continue amlodipine, clonidine and pain control (4) DVT prophylaxis: Heparin drip Warfarin Subjective Patient was seen and examined this morning. Was having generalized twitching at the time. Still reports abdominal pain. Stated it is well controlled with pain meds Denied any fevers, chills, nausea, vomiting, diarrhea Reported no bowel movement since admission but has been passing flatus Review of Systems Review of Systems: All systems reviewed and unremarkable except for mentioned above. Physical Exam Physical Exam: General: Elderly, no acute distress Eyes: PERRL, conjunctivae normal, EOM intact bilaterally ENMT: External ear and nose normal, oropharynx normal Neck: Normal visual inspection, no tracheal deviation, no swelling noted Respiratory: Normal respiratory effort, no respiratory distress, lungs clear to auscultation, no crackles and no wheezes Cardiovascular: Pulse is regular with occasional skipped beat, Normal rate, S1 S2 Gastrointestinal (Abdomen): Abdomen is not distended, soft, severe LUQ and LLQ tenderness, no guarding, normal bowel sounds Musculoskeletal: No cyanosis or clubbing, all extremities motor strength 5/5, Right leg bigger than left. Trace edema Skin: No rash noted on gross inspection, No ulcers noted Neurologic: Alert and oriented x 3, No focal weakness, sensation grossly intact Psychiatric: Alert and oriented x 3, euthymic affect, no depressed affect Results & Data Vital Signs (Past 12 Hours) Vital Signs Temp Pulse Pulse Resp BP Pulse Ox 04/01/19 12:02 36.8 C 71 19 156/61 H 94 04/01/19 07:38 36.8 C 86 20 133/79 95 04/01/19 07:27 77 04/01/19 05:22 183/76 H 04/01/19 03:00 36.6 C 78 18 189/52 H 93 Laboratory Results Abnormal lab results 03/31/19 04/01/19 04/01/19 Range/Units 17:36 00:23 05:08 WBC 11.35 H (4.8-10.8) K/uL RDW Coeff of Dion (11.5-14.5) % Immature Gran # (Auto) 0.06 H (0.00-0.02) K/uL Neut # (Auto) 8.62 H (1.4-6.5) K/uL Lymph # (Auto) 1.01 L (1.2-3.4) K/uL [place] # (Auto) 1.54 H (0.11-0.59) K/uL INR (0.9-1.1) APTT 32.1 H (21.0-31.0) Seconds Potassium (3.5-5.1) mmol/L Chloride (98-107) mmol/L Creatinine (0.6-1.2) mg/dl Glucose (70-99) mg/dl Calcium (8.5-10.1) mg/dl Magnesium (1.8-2.4) mg/dl AST (15-37) U/L Total Protein (6.4-8.2) gm/dl Albumin (3.4-5.0) gm/dl Urine Appearance Cloudy A (Clear) Ur Specific [place] 1.039 H (1.000-1.030) Urine Protein 3+ H (Negative) Urine Glucose (UA) Trace H (Negative) Urine Ketones Trace H (Negative) Urine WBC (Auto) 5-10 H (0-5) /hpf U Epithel Cells (Auto) >30 H (0-5) /lpf Urine Bacteria (Auto) 2+ H (Negative) 04/01/19 04/01/19 04/01/19 Range/Units 06:16 06:16 06:17 WBC 11.53 H (4.8-10.8) K/uL RDW Coeff of Dion 14.8 H (11.5-14.5) % Immature Gran # (Auto) 0.05 H (0.00-0.02) K/uL Neut # (Auto) 9.08 H (1.4-6.5) K/uL Lymph # (Auto) 0.86 L (1.2-3.4) K/uL [place] # (Auto) 1.46 H (0.11-0.59) K/uL INR 1.2 H (0.9-1.1) APTT 42.8 H (21.0-31.0) Seconds Potassium 3.4 L (3.5-5.1) mmol/L Chloride 109 H (98-107) mmol/L Creatinine (0.6-1.2) mg/dl Glucose 155 H (70-99) mg/dl Calcium 8.3 L (8.5-10.1) mg/dl Magnesium 1.7 L (1.8-2.4) mg/dl AST 12 L (15-37) U/L Total Protein 5.6 L (6.4-8.2) gm/dl Albumin 2.7 L (3.4-5.0) gm/dl Urine Appearance (Clear) Ur Specific [place] (1.000-1.030) Urine Protein (Negative) Urine Glucose (UA) (Negative) Urine Ketones (Negative) Urine WBC (Auto) (0-5) /hpf U Epithel Cells (Auto) (0-5) /lpf Urine Bacteria (Auto) (Negative) 04/01/19 04/01/19 04/01/19 Range/Units 09:13 12:27 16:02 WBC (4.8-10.8) K/uL RDW Coeff of Dion (11.5-14.5) % Immature Gran # (Auto) (0.00-0.02) K/uL Neut # (Auto) (1.4-6.5) K/uL Lymph # (Auto) (1.2-3.4) K/uL [place] # (Auto) (0.11-0.59) K/uL INR (0.9-1.1) APTT 41.6 H 41.3 H (21.0-31.0) Seconds Potassium (3.5-5.1) mmol/L Chloride (98-107) mmol/L Creatinine 1.22 H (0.6-1.2) mg/dl Glucose 228 H (70-99) mg/dl Calcium 8.3 L (8.5-10.1) mg/dl Magnesium (1.8-2.4) mg/dl AST (15-37) U/L Total Protein (6.4-8.2) gm/dl Albumin (3.4-5.0) gm/dl Urine Appearance (Clear) Ur Specific [place] (1.000-1.030) Urine Protein (Negative) Urine Glucose (UA) (Negative) Urine Ketones (Negative) Urine WBC (Auto) (0-5) /hpf U Epithel Cells (Auto) (0-5) /lpf Urine Bacteria (Auto) (Negative) (1) Abdominal pain Abdominal location: unspecified location Qualified Code(s): R10.9 - Unspecified abdominal pain (2) Hypertension Hypertension type: unspecified Qualified Code(s): I10 - Essential (primary) hypertension
--- NOTE | 2019-04-01 14:11 | Cardiology Progress Note ---
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 Multiple echogenicity noted on the left atrial aspect of the mitral valve seems to be consistent with ruptured chord. Patient agreeable to LUCRECIA for further evaluation of cardiac source of embolism. Will make n.p.o. after midnight. Start coumadin. Check INR in am. Subjective Chief complaint: Follow-up abdominal discomfort Subjective: Patient feeling well. Heparin is infusing. She denies any abdominal pain. Denies subjective palpitations. Telemetry reveals sinus rhythm with left bundle branch block and no significant arrhythmia. No atrial fibrillation observed. Review of Systems Review of Systems: All systems reviewed & are unremarkable except as noted in HPI & below Physical Exam Physical Exam: Temp Pulse Resp BP Pulse Ox 36.8 C 71 19 156/61 H 94 04/01/19 12:02 04/01/19 12:02 04/01/19 12:02 04/01/19 12:02 04/01/19 12:02 Constitutional: WD/WN, vitals as above Respiratory: normal respiratory effort, lungs clear to auscultation Cardiovascular: Rate/Rhythm: regular rhythm Heart Sounds: + murmur (1/6 systolic murmur) Vessels: no JVD Gastrointestinal (Abdomen): normal bowel sounds, soft, nontender, no hepatosplenomegaly Neurologic: PERRL, EOMI, accommodation nl, no face palsy, no dysarthria Results & Data Vital Signs (Past 12 Hours) Vital Signs Temp Pulse Pulse Resp BP Pulse Ox 04/01/19 12:02 36.8 C 71 19 156/61 H 94 04/01/19 07:38 36.8 C 86 20 133/79 95 04/01/19 07:27 77 04/01/19 05:22 183/76 H 04/01/19 03:00 36.6 C 78 18 189/52 H 93
[2019-04-01 16:24] LABS: Partial Thromboplastin Ratio 1.5; Partial Thromboplastin Time 41.3 Seconds (21.0-31.0)
[2019-04-01] MEDS: WARFARIN SOD 2.5 MG TAB PO SCH (16:47)
[2019-04-01] MEDS: HEPARIN SODIUM/DEXTROSE 25,000 UNITS/500 ML BAG IV SCH (16:52)
[2019-04-01] MEDS: POLYETHYLENE (MIRALAX) 17 GM PACK PO SCH (18:20)
[2019-04-01] MEDS ORDERED: XOPENEX/ATROVENT 1.25mg/0.5MG NEB COMBO NEB PRN (19:44)
[2019-04-01] MEDS: IPRATROPIUM BROMIDE NEB SOLN 0.02% 2.5 ML VIAL INH PRN (19:48)
[2019-04-01] MEDS: LEVALBUTEROL 1.25MG/0.5ML NEB INH PRN (19:48)
--- NOTE | 2019-04-01 20:06 | XRay Report ---
XR chest 1V portable CLINICAL HISTORY: Shortness of breath COMPARISON STUDY: 02/10/2016 FINDINGS: The heart is enlarged. There is radiographic evidence of congestive failure with pulmonary edema. There are [id number] bilateral pleural effusions. There are basilar opacities likely re presenting compressive atelectasis.[ IMPRESSION: Cardiomegaly with radiographic evidence of congestive failure and interstitial pulmonary edema. Bilateral pleural effusions Electronically signed by: Timmy Uriarte M.D. 04/01/2019 8:05 PM
[2019-04-01] MEDS ORDERED: FUROSEMIDE 40 MG in SYRINGE 0 ML IV STA (20:10)
[2019-04-01 23:22] LABS: Partial Thromboplastin Ratio 1.8
[2019-04-01 23:33] LABS: Partial Thromboplastin Time 47.7 Seconds (21.0-31.0)
[2019-04-02] MEDS: HYDROmorphone INJ 0.5 MG/0.5 ML SYR IV PRN ×2 (03:53→19:28)
[2019-04-02] MEDS: IPRATROPIUM BROMIDE NEB SOLN 0.02% 2.5 ML VIAL INH PRN ×3 (03:58→19:39)
[2019-04-02] MEDS: LEVALBUTEROL 1.25MG/0.5ML NEB INH PRN ×3 (03:58→19:39)
[2019-04-02 05:52] LABS: Estimated Average Glucose 157 mg/dl; Hemoglobin A1C 7.1 % (4.5-5.6)
[2019-04-02 07:10] LABS: Hematocrit (blood only) 35.6 % (37-47); Mean Corpuscular Hemoglobin 28.5 pg (25-34); Mean Corpuscular Hgb Conc 33.7 g/dL (32-36); Mean Corpuscular Volume 84.6 fL (80-100); Mean Platelet Volume 9.6 fL (7.4-10.4); Platelet Count 203 K/uL (130-400); RDW Coefficient of Variation 14.8 % (11.5-14.5); RDW Standard Deviation 45.6 fL (36.4-46.3); Red Blood Count 4.21 M/uL (4.2-5.4)
[2019-04-02] MEDS: HydrALAZINE HCL 20 MG/ML VIAL IV PRN (07:13)
[2019-04-02 07:29] LABS: INR 1.1 (0.9-1.1); Partial Thromboplastin Ratio 1.5; Partial Thromboplastin Time 39.6 Seconds (21.0-31.0); Prothrombin Time 11.5 Seconds (9.0-12.0)
[2019-04-02] MEDS ORDERED: MIDAZOLAM HCL 1 MG/ML 2ML VIAL ONE (07:30)
[2019-04-02] MEDS ORDERED: fentaNYL citrate 100 MCG/2 ML VIAL ONE (07:30)
[2019-04-02 07:50] LABS: Albumin Level 2.7 gm/dl (3.4-5.0); BUN Creatinine Ratio 13.2 (10-20); Calcium 8.6 mg/dl (8.5-10.1); Creatinine Clr Calc Pharmacy 25.2 ml/min; Est GFR (African American) 44.4; Est GFR (Non-African American) 38.3; Potassium 3.5 mmol/L (3.5-5.1)
[2019-04-02 07:53] LABS: Albumin Globulin Ratio 0.9 (0.9-2); Bilirubin,Total 0.7 mg/dl (0.2-1); Globulin 3.1 gm/dl (2.5-4.0); Total Protein 5.8 gm/dl (6.4-8.2)
[2019-04-02] MEDS ORDERED: HEPARIN IV BOLUS 3,000 UNITS in SYRINGE 0 ML IV ONE (08:15)
--- NOTE | 2019-04-02 08:20 | History & Physical Bridge Note ---
Date of Service April 02, 2019 History & Physical Bridge Note I have examined the patient, reviewed the History & Physical and in the interval since the performance of the History & Physical I have noted the following changes of clinical significance: no changes noted. Labs stable this am. Informed consent for LUCRECIA obtained with daughter at bedside. Pt elects to proceed with LUCRECIA.
--- NOTE | 2019-04-02 08:21 | Pre Anesthesia Assessment ---
Date of Service April 02, 2019 Pre Sedation Assessment Vital Signs Temp Pulse Pulse Pulse Resp BP BP 04/02/19 07:38 180/76 H 04/02/19 07:27 78 16 205/65 H 04/02/19 06:44 36.9 C 71 16 179/66 H 04/02/19 04:02 72 20 04/02/19 03:07 37 C 70 18 167/63 H 04/02/19 00:33 67 04/01/19 22:42 36.9 C 68 18 135/54 L 04/01/19 19:49 78 24 04/01/19 19:07 37.3 C 77 22 179/70 H 04/01/19 18:08 36.9 C 77 18 164/56 H 04/01/19 15:54 36.8 C 81 18 166/71 H 04/01/19 15:23 77 04/01/19 12:02 36.8 C 71 19 156/61 H Pulse Ox 04/02/19 07:38 04/02/19 07:27 96 04/02/19 06:44 93 04/02/19 04:02 95 04/02/19 03:07 93 04/02/19 00:33 04/01/19 22:42 95 04/01/19 19:49 96 04/01/19 19:07 90 04/01/19 18:08 92 04/01/19 15:54 91 04/01/19 15:23 04/01/19 12:02 94 Pre-Sedation Airway Assessment Smoking Status: Former smoker Hx Sleep Apnea: No Short, Thick Neck: No Thyromental Distance: > or= 3.5 Finger Breadths Oral Cavity: + WNL Mallampati Class: II ASA: ASA4 NPO Status Date of Last Intake of Fluids: 04/01/19 Date of Last Intake of Solid Food: 04/01/19 Notes The planned sedation has been discussed with the patient. Informed Consent was obtained. I have identified the patient, determined the appropriateness of sedation and have assessed the patient immediately prior to the procedure. All medicine(s) and interventions are by my order.
--- NOTE | 2019-04-02 09:15 | Post Operative Brief Note ---
Cardiology Brief Post Op Date of Surgery April 02, 2019 Pre & Post Diagnosis Preprocedure diagnosis: Recent splenic infarct, assess for cardiac source of systemic embolism Post procedure diagnosis: Diffuse atherosclerotic plaque noted in the descending thoracic aorta Operation Date: 04/02/19 08:00 Procedure Transesophageal echocardiogram: Informed consent was obtained. The patient was monitored in the standard fashion including blood pressure, heart rate and rhythm, and inhaled CO2. The patient received conscious sedation receiving a total of 3 mg of IV Versed and 75 mcg of IV fentanyl in divided doses. Systemic hypertension was noted prior to the procedure and throughout the procedure. There is no left atrial thrombus and no left atrial appendage thrombus. Severe calcification of the posterior portion of the mitral valve apparatus was noted. Refer to transesophageal echocardiogram report for quantification of the aortic valve stenosis, mitral valve stenosis, and mitral valve regurgitation. The interatrial septum was intact as documented with the administration of agitated saline contrast with no evidence of atrial septal defect or PFO. The previously reported echodensity in the left atrium that was felt to potentially be a ruptured chord was not visualized by transesophageal echocardiogram it is felt that this finding on the transthoracic echocardiogram was artifactual due to reverberation from the dense calcification. Diffuse atherosclerotic plaque was visualized in the descending thoracic aorta. Conclusions: The patient's splenic infarct was likely an atherosclerotic embolism from her thoracic or abdominal aorta. Given her underlying mitral stenosis, she is of course at risk for left atrial thrombus. Recommendations: The treatment for atheroembolism is either dual antiplatelet therapy versus systemic anticoagulation. Given her findings in the abdominal aorta as well as her mitral stenosis, I recommend treatment with anticoagulation, Coumadin. Patient has tolerated this well in the past and she had been on it for venous thromboembolic embolism for years. Basting Puller Bobby German DO Air Brush Operator April Becerra Estimated Blood Loss 0 Findings Consistent with Post-Op Diagnosis Anesthesia Type MAC Complications none
--- NOTE | 2019-04-02 09:16 | Post Anesthesia Assessment ---
Date of Service April 02, 2019 Post Sedation Assessment Vital Signs Temp Pulse Pulse Pulse Resp BP BP 04/02/19 09:05 78 77 16 170/63 H 04/02/19 09:03 78 16 183/69 H 04/02/19 09:00 78 16 157/69 H 04/02/19 08:55 77 16 155/68 H 04/02/19 08:50 78 16 164/59 H 04/02/19 08:45 82 16 199/58 H 04/02/19 08:40 79 16 202/101 H 04/02/19 08:35 83 16 188/78 H 04/02/19 08:30 85 16 200/77 H 04/02/19 07:38 180/76 H 04/02/19 07:27 78 16 205/65 H 04/02/19 06:44 36.9 C 71 16 179/66 H 04/02/19 04:02 72 20 04/02/19 03:07 37 C 70 18 167/63 H 04/02/19 00:33 67 04/01/19 22:42 36.9 C 68 18 135/54 L 04/01/19 19:49 78 24 04/01/19 19:07 37.3 C 77 22 179/70 H 04/01/19 18:08 36.9 C 77 18 164/56 H 04/01/19 15:54 36.8 C 81 18 166/71 H 04/01/19 15:23 77 04/01/19 12:02 36.8 C 71 19 156/61 H Pulse Ox 04/02/19 09:05 95 04/02/19 09:03 95 04/02/19 09:00 95 04/02/19 08:55 95 04/02/19 08:50 95 04/02/19 08:45 95 04/02/19 08:40 95 04/02/19 08:35 95 04/02/19 08:30 95 04/02/19 07:38 04/02/19 07:27 96 04/02/19 06:44 93 04/02/19 04:02 95 04/02/19 03:07 93 04/02/19 00:33 04/01/19 22:42 95 04/01/19 19:49 96 04/01/19 19:07 90 04/01/19 18:08 92 04/01/19 15:54 91 04/01/19 15:23 04/01/19 12:02 94 Recovery Score Activity: Moves 4 extremities Respiration: Deep Breath/Cough Circulation: +/-20% PreAnes Value Consciousness: Arouseable (by name) Oxygen Saturation: O2 needed for >90% Post Anesthesia Score: 8 Discharge Sedation Level of Care: Phase I Post Sedation Plan On clinical assessment, the patient appears to have tolerated the sedation without complications. Patient is recovering as anticipated. Patient will continue to be monitored by nursing and may be discharged when sedation discharge criteria are met per below protocol. Upon Completions of procedure up to 15 minutes continue every 5 minute vital signs and the P.A.R. score; then discharge to a Phase I or Fast Track to Phase II per the following guidelines: * Discharge Patient to appropriate Phase II area if PAR is 8 or greater or return to pre- procedure baseline. The post - procedure orders will be as directed. * If PAR score is less than 8 or not return to pre-procedure baseline then patient will follow Phase I monitoring till PAR is reached for Phase II. The Phase I may be done in procedure room or may call to secure a Phase I area. * If naloxone or flumazenil are used for reversal, hold in Phase I for continued monitoring from when last reversal dose was given for a minimum of 60 minutes or longer pending the nurse and/or physician discretion of patient condition before discharge to Phase II. Please call the Sedation Physician to re-evaluate and complete post-note for discharge to Phase II area. Do NOT discharge from procedure sedation or Phase 1 until post- sedation evaluation note is complete by procedure /sedation MD Sedation Discharge Instructions to be given to the patient at discharge to home.
[2019-04-02] MEDS: POLYETHYLENE (MIRALAX) 17 GM PACK PO SCH (10:27)
[2019-04-02] MEDS: ATORVASTATIN 20 MG TAB PO SCH (10:27)
[2019-04-02] MEDS: AMLODIPINE BESYLATE 5 MG TAB PO SCH (10:28)
[2019-04-02] MEDS: cloNIDine HCL 0.3 MG TAB PO SCH ×2 (10:28→21:14)
[2019-04-02] MEDS: ASPIRIN 81 MG ECTAB PO SCH (10:28)
[2019-04-02] MEDS: carvediloL 25 MG TAB PO SCH (10:29)
--- NOTE | 2019-04-02 14:38 | Hospitalist Progress Note ---
Date of Service April 02, 2019 Assessment & Plan (1) Abdominal pain: (2) Splenic infarct: LUQ pain CT show splenic infarct Patient also has calcification in the aorta in my review of the images She also reports Right LE DVT many years ago for which she was on coumadin for sometime Right LE doppler negative for DVT Portal venous duplex neg for VTE in portal, splenic veins Echo report noted. Showed mod dil LA, EF 55-60, severe mitral annular calcification, moderate to severe MR, mobile echodensity on ant mitral leaflet likely ruptured chord Currently on heparin and warfarin Provided basic coumadin education yesterday Discussed LUCRECIA findings with Dr German. No thrombus found. Will follow up final report (3) Hypertension: BP poorly controlled In the setting of reported congestion on CXR. Reduced coreg back to home dose Continue amlodipine, clonidine Added hydralazine to optimize BP control Patient reports that BP at home runs in 180-200s/90s Incentive spirometry for hypoxia as well (4) DM type 2 (diabetes mellitus, type 2): A1c is 7.1 Reports she is not on any antidiabetic at home Carb controlled diet (5) DVT prophylaxis: Heparin drip Warfarin Monitor INR Subjective Patient became hypoxic overnight and found to have pulmonary edema Got iv lasix Patient still reports abdominal pain. Denied nausea, vomiting, diarrhea Denied fevers, chills, chest pain, cough Reports no bowel movement yet but passes flatus Review of Systems Review of Systems: All systems reviewed and unremarkable except for mentioned above. Physical Exam Physical Exam: General: Elderly, no acute distress Eyes: PERRL, conjunctivae normal, EOM intact bilaterally ENMT: External ear and nose normal, oropharynx normal Neck: Normal visual inspection, no tracheal deviation, no swelling noted Respiratory: Normal respiratory effort, no respiratory distress, Reduced air entry lower lung bases. No crackles Cardiovascular: Pulse is regular with occasional skipped beat, Normal rate, S1 S2 Gastrointestinal (Abdomen): Abdomen is not distended, soft, + LUQ and LLQ tenderness, no guarding, normal bowel sounds Skin: No rash noted on gross inspection, No ulcers noted Neurologic: Alert and oriented x 3, No focal weakness, sensation grossly intact Results & Data Vital Signs (Past 12 Hours) Vital Signs Temp Pulse Pulse Pulse Resp BP BP 04/02/19 12:52 69 04/02/19 11:20 37.3 C 71 20 146/54 H 04/02/19 09:20 76 16 155/63 H 04/02/19 09:05 78 77 16 170/63 H 04/02/19 09:03 78 16 183/69 H 04/02/19 09:00 78 16 157/69 H 04/02/19 08:55 77 16 155/68 H 04/02/19 08:50 78 16 164/59 H 04/02/19 08:45 82 16 199/58 H 04/02/19 08:40 79 16 202/101 H 04/02/19 08:35 83 16 188/78 H 04/02/19 08:30 85 16 200/77 H 04/02/19 07:38 180/76 H 04/02/19 07:27 78 16 205/65 H 04/02/19 06:44 36.9 C 71 16 179/66 H 04/02/19 04:02 72 20 04/02/19 03:07 37 C 70 18 167/63 H Pulse Ox 04/02/19 12:52 04/02/19 11:20 92 04/02/19 09:20 94 04/02/19 09:05 95 04/02/19 09:03 95 04/02/19 09:00 95 04/02/19 08:55 95 04/02/19 08:50 95 04/02/19 08:45 95 04/02/19 08:40 95 04/02/19 08:35 95 04/02/19 08:30 95 04/02/19 07:38 04/02/19 07:27 96 04/02/19 06:44 93 04/02/19 04:02 95 04/02/19 03:07 93 Laboratory Results Abnormal lab results 04/01/19 04/01/19 04/02/19 Range/Units 06:16 22:33 06:51 Hct (37-47) % RDW Coeff of Dion (11.5-14.5) % APTT 47.7 H* 39.6 H (21.0-31.0) Seconds Chloride (98-107) mmol/L Carbon Dioxide (21-32) mmol/L Creatinine (0.6-1.2) mg/dl Glucose (70-99) mg/dl Hemoglobin A1c 7.1 H (4.5-5.6) % Alkaline Phosphatase (45-117) U/L Total Protein (6.4-8.2) gm/dl Albumin (3.4-5.0) gm/dl 04/02/19 04/02/19 04/02/19 Range/Units 06:51 06:51 14:38 Hct 35.6 L (37-47) % RDW Coeff of Dion 14.8 H (11.5-14.5) % APTT 51.5 H* (21.0-31.0) Seconds Chloride 108 H (98-107) mmol/L Carbon Dioxide 20 L (21-32) mmol/L Creatinine 1.26 H (0.6-1.2) mg/dl Glucose 148 H (70-99) mg/dl Hemoglobin A1c (4.5-5.6) % Alkaline Phosphatase 139 H (45-117) U/L Total Protein 5.8 L (6.4-8.2) gm/dl Albumin 2.7 L (3.4-5.0) gm/dl (1) Abdominal pain Abdominal location: unspecified location Qualified Code(s): R10.9 - Unspecified abdominal pain (2) Hypertension Hypertension type: unspecified Qualified Code(s): I10 - Essential (primary) hypertension
[2019-04-02 15:14] LABS: Partial Thromboplastin Ratio 1.9
[2019-04-02 15:15] LABS: Partial Thromboplastin Time 51.5 Seconds (21.0-31.0)
[2019-04-02] MEDS: WARFARIN SOD 2.5 MG TAB PO SCH (15:35)
[2019-04-02] MEDS ORDERED: Nursing to Pharmacy Communication ONE (15:54)
[2019-04-02] MEDS: DOCUSATE SODIUM/SENNA 50/8.6MG TAB PO SCH (17:31)
[2019-04-02 18:13] LABS: BUN Creatinine Ratio 11.9 (10-20); Calcium 8.7 mg/dl (8.5-10.1); Creatinine Clr Calc Pharmacy 23.9 ml/min; Est GFR (African American) 41.6; Est GFR (Non-African American) 35.9; Potassium 3.6 mmol/L (3.5-5.1)
[2019-04-02] MEDS: carvediloL 12.5 MG TAB PO SCH (21:15)
[2019-04-02] MEDS: HEPARIN SODIUM/DEXTROSE 25,000 UNITS/500 ML BAG IV SCH (22:45)
[2019-04-03 03:18] LABS: Urine Potassium 52.7 mmol/L
[2019-04-03] MEDS: NITROGLYCERIN SL 0.4 MG/TAB TAB SL PRN ×2 (05:41→08:35)
[2019-04-03] MEDS: HydrALAZINE HCL 20 MG/ML VIAL IV PRN ×2 (05:56→20:11)
[2019-04-03 06:44] LABS: Hematocrit (blood only) 33.3 % (37-47); Hemoglobin 11.2 g/dL (12.0-16.0); Mean Corpuscular Hemoglobin 28.4 pg (25-34); Mean Corpuscular Hgb Conc 33.6 g/dL (32-36); Mean Corpuscular Volume 84.3 fL (80-100); Mean Platelet Volume 9.5 fL (7.4-10.4); Platelet Count 241 K/uL (130-400); RDW Coefficient of Variation 14.7 % (11.5-14.5); RDW Standard Deviation 45.7 fL (36.4-46.3); Red Blood Count 3.95 M/uL (4.2-5.4); White Blood Count 10.69 K/uL (4.8-10.8)
[2019-04-03 07:04] LABS: INR 1.3 (0.9-1.1); Partial Thromboplastin Ratio 1.8; Prothrombin Time 12.8 Seconds (9.0-12.0)
[2019-04-03 07:14] LABS: Partial Thromboplastin Time 47.5 Seconds (21.0-31.0)
[2019-04-03 07:23] LABS: BUN Creatinine Ratio 14.4 (10-20); Calcium 8.4 mg/dl (8.5-10.1); Creatinine Clr Calc Pharmacy 27.4 ml/min; Est GFR (African American) 48.5; Est GFR (Non-African American) 41.9; Magnesium 1.9 mg/dl (1.8-2.4); Potassium 3.4 mmol/L (3.5-5.1)
[2019-04-03] MEDS ORDERED: POTASSIUM CHLORIDE 20 MEQ TABCR PO STA (08:21)
[2019-04-03] MEDS ORDERED: HYDROmorphone INJ 1 MG/ML SYRINGE ONE (08:48)
--- NOTE | 2019-04-03 08:52 | Hospitalist Progress Note ---
Date of Service April 03, 2019 Assessment & Plan (1) Abdominal pain: (2) Splenic infarct: LUQ pain CT show splenic infarct Patient also has calcification in the aorta in my review of the images She also reports Right LE DVT many years ago for which she was on coumadin for sometime Right LE doppler negative for DVT Portal venous duplex neg for VTE in portal, splenic veins Echo report noted. Showed mod dil LA, EF 55-60, severe mitral annular calcification, moderate to severe MR, mobile echodensity on ant mitral leaflet likely ruptured chord Discussed LUCRECIA findings with Dr German. No thrombus found. Mobile echodensity likely ruptured chord noted on TTE not seen likely artifactual per reported Was initially started on heparin and coumadin. For sudden worsening abdominal and lower chest pain Hb drop from 12 yesterday to 11.2 this AM. (was 13 on admission) Possible hemorrhagic transformation of splenic infarct. Stop anticoagulation for now Get CXR and Abd xray stat Stat iv dilaudid Check CBC stat I explained to the patient the possibilities of bleeding into infarcted spleen w hich may explain the acute worsening of pain. We had discussed the risk of bleeding prior to initiating anticoagulation as documented on 03/31/19 with patient and daughter. I explained again to the patient that if she was bleeding , there may arise need for surgery. She stated that she does not want any surgery, resuscitation or ventilator support. She stated that she only wants medical therapy. Will respect wishes for now and discuss this again when we get pain controlled and get more diagnostic information (3) Hypertension: BP poorly controlled Currently on amlodipine, clonidine Initially increased carvedilol from home dose of 12.5mg bid to 25mg bid. However, this was reduced back to home dose after patient develop congestion on Xray. Hydralazine 50 q8h No ACEI for now due to GFR Control pain as above Patient reports that BP at home runs in 180-200s/90s Incentive spirometry for hypoxia as well (4) DM type 2 (diabetes mellitus, type 2): A1c is 7.1 Reports she is not on any antidiabetic at home Carb controlled diet (5) Pulmonary edema: (6) Acute on chronic diastolic heart failure: Developed shortness of breath 2 nights ago and noted to have congestion on xray Give iv lasix Monitor Cr and electrolytes Monitor I/O Daily weight TTE notes moderated LVH, EF 55-60, LA mod dil, moderate AR, mod to severe MR, moderate pulm HTN (7) DVT prophylaxis: Anticoagulation on hold as above SCD for now Subjective Patient seen and examined Per RN, Started having worsening left sided abdominal pain and chest pain around 5am which improved with nitro. EKG at the time was similar to previous with chronic LBBB. Trop was negative. Started worsening again 20 mins ago. Patient seen to be in severe painful distress. Reports pain is severe involving her LUQ, LLQ, lower left rib cage area. Denied any nausea, vomiting. Reports no bowel movement since admission. Denied any cough. Denied any fevers, chills Denied any dysuria or frequency. Denied any trauma to left abdomen. Review of Systems Review of Systems: All systems reviewed and unremarkable except for mentioned above. Physical Exam Physical Exam: General: Elderly, in severe painful distress. Eyes: PERRL, conjunctivae normal, EOM intact bilaterally ENMT: External ear and nose normal, oropharynx normal Neck: Normal visual inspection, no tracheal deviation, no swelling noted Respiratory: Tachypneic, Reduced air entry lower lung bases. No crackles noted Cardiovascular: Pulse is regular, Normal rate, S1 S2, no pedal edema Gastrointestinal (Abdomen): Abdomen is not distended, soft, + LUQ and LLQ tenderness, reduced bowel sounds Skin: No rash noted on gross inspection, No ulcers noted Neurologic: Alert and oriented x 3, No focal weakness, sensation grossly intact Results & Data Vital Signs (Past 12 Hours) Vital Signs Temp Pulse Pulse Resp BP BP Pulse Ox 04/03/19 08:02 36.9 C 75 18 185/56 H 95 04/03/19 03:55 36.8 C 73 18 185/64 H 90 04/03/19 02:05 78 04/03/19 00:10 36.9 C 65 18 168/67 H 92 04/02/19 21:11 83 20 189/65 H 90 Laboratory Results Laboratory Results - last 24 hr 04/02/19 04/02/19 04/03/19 14:38 17:41 01:55 WBC RBC Hgb Hct MCV MCH MCHC RDW Std Deviation RDW Coeff of Dion Plt Count MPV PT INR APTT 51.5 H* PTT Ratio 1.9 Sodium 137 Potassium 3.6 Chloride 107 Carbon Dioxide 23 Anion Gap 7.0 BUN 16 Creatinine 1.33 H Est Cr Clr Drug Dosing 23.9 Est GFR ( Amer) 41.6 Est GFR (Non-Af Amer) 35.9 BUN/Creatinine Ratio 11.9 Glucose 184 H Calcium 8.7 Magnesium Troponin I Ur Random Creatinine 203.0 Ur Random Sodium Cancelled Urine Sodium 31 Urine Potassium 52.7 Urine Chloride 54 04/03/19 04/03/19 04/03/19 06:23 06:23 06:23 WBC 10.69 RBC 3.95 L Hgb 11.2 L Hct 33.3 L MCV 84.3 MCH 28.4 MCHC 33.6 RDW Std Deviation 45.7 RDW Coeff of Dion 14.7 H Plt Count 241 MPV 9.5 PT 12.8 H INR 1.3 H APTT 47.5 H* PTT Ratio 1.8 Sodium 136 Potassium 3.4 L Chloride 107 Carbon Dioxide 22 Anion Gap 7.0 BUN 17 Creatinine 1.17 Est Cr Clr Drug Dosing 27.4 Est GFR ( Amer) 48.5 Est GFR (Non-Af Amer) 41.9 BUN/Creatinine Ratio 14.4 Glucose 166 H Calcium 8.4 L Magnesium 1.9 Troponin I Ur Random Creatinine Ur Random Sodium Urine Sodium Urine Potassium Urine Chloride 04/03/19 06:23 WBC RBC Hgb Hct MCV MCH MCHC RDW Std Deviation RDW Coeff of Dion Plt Count MPV PT INR APTT PTT Ratio Sodium Potassium Chloride Carbon Dioxide Anion Gap BUN Creatinine Est Cr Clr Drug Dosing Est GFR ( Amer) Est GFR (Non-Af Amer) BUN/Creatinine Ratio Glucose Calcium Magnesium Troponin I < 0.015 Ur Random Creatinine Ur Random Sodium Urine Sodium Urine Potassium Urine Chloride (1) Abdominal pain Abdominal location: unspecified location Qualified Code(s): R10.9 - Unspecified abdominal pain (2) Hypertension Hypertension type: unspecified Qualified Code(s): I10 - Essential (primary) hypertension
[2019-04-03 09:21] LABS: Hematocrit (blood only) 33.5 % (37-47); Hemoglobin 11.5 g/dL (12.0-16.0); Mean Corpuscular Hemoglobin 28.3 pg (25-34); Mean Corpuscular Volume 82.3 fL (80-100); Mean Platelet Volume 9.8 fL (7.4-10.4); Platelet Count 221 K/uL (130-400); RDW Coefficient of Variation 14.8 % (11.5-14.5); Red Blood Count 4.07 M/uL (4.2-5.4)
--- NOTE | 2019-04-03 09:22 | XRay Report ---
XR chest 1V portable CLINICAL HISTORY: left sided chest/abdominal pain COMPARISON STUDY: 04/01/2019 FINDINGS: The heart remains enlarged. There is continued radiographic evidence of congestive failure with interstitial pulmonary edema. There are bilateral pleural effusions with associated basilar airs pace opacities likely representing compressive atelectasis.[No free intraperitoneal air is visualized . IMPRESSION: Continued radiographic evidence of congestive failure with interstitial pulmonary edema a nd bilateral pleural effusions Electronically signed by: Timmy Uriarte M.D. 04/03/2019 9:21 AM
[2019-04-03 09:23] LABS: Mean Corpuscular Hgb Conc 34.3 g/dL (32-36)
--- NOTE | 2019-04-03 09:23 | XRay Report ---
XR KUB/Abdomen 1 view CLINICAL HISTORY: left sided chest/abdominal pain COMPARISON STUDY: No previous studies for comparison. FINDINGS: There is contrast within nondilated colon. There is a lumbar levoscoliosis. Degenerative ch anges are present within the lumbar spine. IMPRESSION: Nonobstructive bowel gas pattern. Electronically signed by: Timmy Uriarte M.D. 04/03/2019 9:22 AM
[2019-04-03] MEDS: cloNIDine HCL 0.3 MG TAB PO SCH ×2 (09:52→19:38)
[2019-04-03] MEDS: HydrALAZINE TAB 50 MG TAB PO SCH ×2 (09:52→16:58)
[2019-04-03] MEDS: carvediloL 12.5 MG TAB PO SCH ×3 (09:53→19:38)
[2019-04-03] MEDS: AMLODIPINE BESYLATE 5 MG TAB PO SCH (09:54)
[2019-04-03] MEDS: ASPIRIN 81 MG ECTAB PO SCH (09:54)
[2019-04-03] MEDS: ATORVASTATIN 20 MG TAB PO SCH (09:54)
[2019-04-03] MEDS: DOCUSATE SODIUM/SENNA 50/8.6MG TAB PO SCH (09:55)
[2019-04-03] MEDS: POLYETHYLENE (MIRALAX) 17 GM PACK PO SCH (09:59)
[2019-04-03] MEDS ORDERED: HYDROmorphone INJ 1 MG/ML SYRINGE IV STA ×2 (10:50→17:25)
[2019-04-03] MEDS ORDERED: FUROSEMIDE 40 MG in SYRINGE 0 ML IV ONE (11:35)
[2019-04-03] MEDS: IPRATROPIUM BROMIDE NEB SOLN 0.02% 2.5 ML VIAL INH PRN ×2 (14:04→18:37)
[2019-04-03] MEDS: LEVALBUTEROL 1.25MG/0.5ML NEB INH PRN ×2 (14:04→18:37)
--- NOTE | 2019-04-03 14:16 | Cardiology Progress Note ---
Date of Service April 03, 2019 Assessment & Plan (1) Acute on chronic diastolic heart failure: Agree with Lasix, oxygen support, blood pressure medications have been titrated. It is reassuring that cardiac enzymes are negative thus far. EKG this morning reveals ongoing sinus rhythm with left bundle branch block. (2) Splenic infarct: Heparin on hold. INR 1.3. Coumadin held per the primary service due to acute symptoms all additional work-up is pursued. Subjective Chief complaint: Follow-up abdominal pain, shortness of breath Subjective: Patient short of breath this morning. Chest x-ray reveals ongoing findings of interstitial edema consistent with CHF. Also has abdominal discomfort. She received furosemide about an hour ago, and is currently receiving a bronchodilator treatment. Review of Systems Review of Systems: All systems reviewed & are unremarkable except as noted in HPI & below Physical Exam Physical Exam: Temp Pulse Resp BP Pulse Ox 36.9 C 96 H 30 H 153/62 H 95 04/03/19 08:02 04/03/19 14:07 04/03/19 14:07 04/03/19 12:14 04/03/19 14:07 Constitutional: Uncomfortable, ill in appearance Respiratory: Auscultation: + diminished lung sounds (Decreased breath sounds the bases bilaterally); no crackles, no rales and no rhonchi Cardiovascular: RRR, no murmur, no edema Gastrointestinal (Abdomen): Mild nonspecific epigastric tenderness on palpitation Neurologic: PERRL, EOMI, accommodation nl, no face palsy, no dysarthria Results & Data Vital Signs (Past 12 Hours) Vital Signs Temp Pulse Pulse Resp BP BP Pulse Ox 04/03/19 14:07 96 H 30 H 95 04/03/19 12:14 70 18 153/62 H 92 04/03/19 09:45 78 20 180/66 H 94 04/03/19 08:40 146/70 H 90 04/03/19 08:30 80 24 212/71 H 93 04/03/19 08:02 36.9 C 75 18 185/56 H 95 04/03/19 03:55 36.8 C 73 18 185/64 H 90
[2019-04-03] MEDS: HYDROmorphone INJ 0.5 MG/0.5 ML SYR IV PRN (16:58)
[2019-04-03] MEDS ORDERED: HYDROmorphone INJ 2 MG/ML SYR/VIAL IV STA (18:21)
[2019-04-03] MEDS ORDERED: HYDROmorphone INJ 2 MG/ML SYR/VIAL IV PRN ×2 (18:22→19:28)
[2019-04-03] MEDS ORDERED: HYDROmorphone INJ 2 MG/ML SYR/VIAL ONE (18:23)
[2019-04-03] MEDS: ONDANSETRON INJ 2 MG/ML 2 ML VIAL IV PRN (20:11)
[2019-04-04] MEDS: HydrALAZINE TAB 50 MG TAB PO SCH ×3 (01:59→16:47)
[2019-04-04] MEDS: IPRATROPIUM BROMIDE NEB SOLN 0.02% 2.5 ML VIAL INH PRN (02:31)
[2019-04-04] MEDS: LEVALBUTEROL 1.25MG/0.5ML NEB INH PRN (02:32)
[2019-04-04] MEDS ORDERED: POTASSIUM CHLORIDE 20 MEQ TABCR PO STA (03:25)
[2019-04-04] MEDS ORDERED: FUROSEMIDE 20 MG in SYRINGE 0 ML IV ONE ×2 (03:40→08:00)
[2019-04-04] MEDS ORDERED: HYDROmorphone INJ 1 MG/ML SYRINGE ONE (07:41)
[2019-04-04] MEDS: HYDROmorphone INJ 1 MG/ML SYRINGE IV PRN (07:42)
[2019-04-04 07:54] LABS: Hematocrit (blood only) 35.6 % (37-47); Hemoglobin 12.2 g/dL (12.0-16.0); Mean Corpuscular Hemoglobin 28.8 pg (25-34); Mean Corpuscular Hgb Conc 34.3 g/dL (32-36); Mean Corpuscular Volume 84.2 fL (80-100); Mean Platelet Volume 9.3 fL (7.4-10.4); Platelet Count 261 K/uL (130-400); RDW Coefficient of Variation 15.1 % (11.5-14.5); RDW Standard Deviation 46.7 fL (36.4-46.3); Red Blood Count 4.23 M/uL (4.2-5.4); White Blood Count 16.26 K/uL (4.8-10.8)
[2019-04-04 08:11] LABS: INR 1.6 (0.9-1.1); Partial Thromboplastin Ratio 1.2; Partial Thromboplastin Time 32.5 Seconds (21.0-31.0); Prothrombin Time 15.6 Seconds (9.0-12.0)
[2019-04-04 08:25] LABS: BUN Creatinine Ratio 15.7 (10-20); Calcium 9.1 mg/dl (8.5-10.1); Creatinine Clr Calc Pharmacy 23.2 ml/min; Est GFR (African American) 39.7; Est GFR (Non-African American) 34.3; Magnesium 1.9 mg/dl (1.8-2.4); Potassium 4.2 mmol/L (3.5-5.1)
[2019-04-04] MEDS: cloNIDine HCL 0.3 MG TAB PO SCH ×2 (08:58→21:08)
[2019-04-04] MEDS: ATORVASTATIN 20 MG TAB PO SCH (08:59)
[2019-04-04] MEDS: POLYETHYLENE (MIRALAX) 17 GM PACK PO SCH (08:59)
[2019-04-04] MEDS: AMLODIPINE BESYLATE 5 MG TAB PO SCH (08:59)
[2019-04-04] MEDS: carvediloL 12.5 MG TAB PO SCH ×2 (08:59→21:07)
[2019-04-04] MEDS: DOCUSATE SODIUM/SENNA 50/8.6MG TAB PO SCH (09:00)
--- NOTE | 2019-04-04 14:09 | Cardiology Progress Note ---
Date of Service April 04, 2019 Assessment & Plan (1) Acute on chronic diastolic heart failure: Received 2 doses of furosemide in the seasonal retail merchandiser hours today. Clinical improvement. Plan for furosemide 40 mg IV tomorrow 04/05/2019. (2) Hypertension: Blood pressure improved with diuresis and titration of medications. (3) Splenic infarct: Abdominal pain improved. Resume Coumadin without bridge therapy in order to reduce risk of bleeding complication. 2.5 mg daily. INR 1.6 today. Repeat INR tomorrow. Subjective Patient seen in cardiology follow-up. She states her breathing is much improved. Vital signs improved. Sinus rhythm noted. Review of Systems Review of Systems: All systems reviewed & are unremarkable except as noted in HPI & below Cardiovascular: as per Subjective / HPI; no chest pain, no chest pain with activity, no palpitations and no syncope Physical Exam Physical Exam: Temp Pulse Resp BP Pulse Ox 36.6 C 72 20 145/66 H 95 04/04/19 10:59 04/04/19 10:59 04/04/19 10:59 04/04/19 10:59 04/04/19 10:59 Constitutional: Frail, ill in appearance without acute distress Respiratory: Auscultation: + diminished lung sounds (Decreased breath sounds the bases bilaterally); no crackles, no rales and no rhonchi Cardiovascular: Rate/Rhythm: regular rate Heart Sounds: + murmur (1/6 sm) Vessels: no JVD Extremities: no edema Gastrointestinal (Abdomen): normal bowel sounds, soft, nontender, no hepatosplenomegaly Neurologic: PERRL, EOMI, accommodation nl, no face palsy, no dysarthria Results & Data Vital Signs (Past 12 Hours) Vital Signs Temp Pulse Resp BP BP Pulse Ox 04/04/19 10:59 36.6 C 72 20 145/66 H 95 04/04/19 07:25 37.0 C 88 22 174/70 H 93 04/04/19 07:10 88 26 H 87 L 04/04/19 04:40 37.0 C 80 22 163/54 H 92 04/04/19 02:32 87 24 95 (1) Hypertension Hypertension type: unspecified Qualified Code(s): I10 - Essential (primary) hypertension
[2019-04-04] MEDS: WARFARIN SOD 2.5 MG TAB PO SCH (16:47)
--- NOTE | 2019-04-04 17:39 | Palliative Care Progress Note ---
Date of Service April 04, 2019 Subjective This is an 88 year old female who presented to the [facility] with abdominal pain. Additional PMH includes: HTN, DM, CHF, AMARIS. An abdominal CT scan was performed and showed a splenic infarct. The patient and her daughter, Luisa Garcia stated that they will not be pursuing surgical intervention. Their main goal is pain control. Palliative care was consulted to discuss goals of care. I did stop in to see the patient, while she was eating dinner. She was sitting upright and able to have a full conversation with me. She has received one dose of Dilaudid 1 mg IV this morning with relief. While I was in the room, her daughter called. I presented the idea of having a goals of care conversation and she agreed to such. She will be at the hospital tomorrow 04/05 at 0900 for a family meeting with her mother and palliative care. I will pass this along to my colleague. Formal consult to follow. Results & Data Vital Signs (Past 12 Hours) Vital Signs Temp Pulse Pulse Resp BP BP Pulse Ox 04/04/19 14:47 36.9 C 82 18 159/56 H 91 04/04/19 10:59 36.6 C 72 20 145/66 H 95 04/04/19 08:00 88 04/04/19 07:25 37.0 C 88 22 174/70 H 93 04/04/19 07:10 88 26 H 87 L PG Care Time/CCT Total # of Minutes Spent Total Time Spent with Patient: Total time spent is greater than 50% in coordination of care (as documented) at patient's floor/unit and/or counseling patient:
--- NOTE | 2019-04-04 18:27 | Hospitalist Progress Note ---
Date of Service April 04, 2019 Assessment & Plan (1) Abdominal pain: (2) Splenic infarct: Splenic infarct Left lower quadrant abdominal pain CT ABD:Probable splenic infarct occupying 40% of the mid and upper pole left splenic volume. Moderate atrophy left kidney. Mild nonobstructive ileus. Small bilateral pleural effusion H/O Right LE DVT many years ago--was on coumadin in the past Venous Doppler:No evidence of deep venous thrombosis. Portal venous duplex neg for VTE in portal, splenic veins ECHO:Showed mod dil LA, EF 55-60, severe mitral annular calcification, moderate to severe MR, mobile echodensity on ant mitral leaflet likely ruptured chord Discussed LUCRECIA findings with Dr German. No thrombus found. Mobile echodensity likely ruptured chord noted on TTE not seen likely artifactual per reported Started on IV Heparin-- currently held Continue Coumadin. Monitor INR: 1.6 Appreciate surgery, cardiology input Currently patient not interested in any surgical procedures Palliative care consulted to address goals of care Pain control Consider repeat CT abdomen if pain remains uncontrolled (3) Hypertension: Continue amlodipine, Coreg, clonidine and hydralazine Monitor (4) DM type 2 (diabetes mellitus, type 2): A1c is 7.1 Reports she is not on any antidiabetic at home Carb controlled diet (5) Pulmonary edema: (6) Acute on chronic diastolic heart failure: Received IV Lasix Monitor volume status Continue p.o. Lasix (7) DVT prophylaxis: on Coumadin SCD Subjective Patient is seen and examined at bedside Complained of shortness of breath this morning which slightly improved later Also complains of uncontrollable abdominal pain this morning Continues to refuse any surgical procedures Leukocytosis noted Consulted palliative care for input Review of Systems Review of Systems: All systems reviewed & are unremarkable except as noted in HPI & below Physical Exam Physical Exam: Physical Exam: Vitals signs as noted above General Appearance:Moderately built and nourished, + distress Head: normocephalic, Atraumatic Eyes: normal inspection, EOMI Neck: supple, Trachea midline Respiratory/Chest: Decreased breath sounds, +Wheezes Cardiovascular: S1, S2, No murmur Abdomen/GI:Soft, + tender, Bowel sounds present Extremities/Musculoskelatal:normal inspection, no edema Neurologic/Psych:AAOX3, grossly no focal neurological deficits Skin: normal color, warm Results & Data Vital Signs (Past 12 Hours) Vital Signs Temp Pulse Pulse Resp BP BP Pulse Ox 12/04/19 16:00 80 04/04/19 14:47 36.9 C 82 18 159/56 H 91 04/04/19 10:59 36.6 C 72 20 145/66 H 95 04/04/19 08:00 88 04/04/19 07:25 37.0 C 88 22 174/70 H 93 04/04/19 07:10 88 26 H 87 L Laboratory Results Short CBC 04/04/19 Range/Units 07:38 WBC 16.26 H (4.8-10.8) K/uL Hgb 12.2 (12.0-16.0) g/dL Hct 35.6 L (37-47) % Plt Count 261 (130-400) K/uL BMP 04/04/19 07:38 Sodium 136 Potassium 4.2 D Chloride 105 Carbon Dioxide 24 BUN 22 H Creatinine 1.38 H Glucose 188 H Calcium 9.1 (1) Abdominal pain Abdominal location: unspecified location Qualified Code(s): R10.9 - Unspecified abdominal pain (2) Hypertension Hypertension type: unspecified Qualified Code(s): I10 - Essential (primary) hypertension
[2019-04-05] MEDS: HydrALAZINE TAB 50 MG TAB PO SCH ×3 (01:12→16:59)
[2019-04-05] MEDS: HYDROmorphone INJ 1 MG/ML SYRINGE IV PRN (05:05)
--- NOTE | 2019-04-05 07:04 | XRay Report ---
XR chest 1V portable HISTORY: 88 years-old Female chf follow-up study in a patient with congestive heart failure COMPARISON: Chest radiograph 04/03/2019 TECHNIQUE: Portable AP view of the chest FINDINGS: Cardiac silhouette is enlarged, unchanged. Calcified plaque of the thoracic aortic arch. Stable to sl ightly progressed pulmonary edema. No pneumothorax. Bilateral pleural effusions persist. Linear left perihilar/left basilar atelectasis with persistent bibasilar consolidative opacities. Degenerative ch anges of the shoulders and spine. IMPRESSION: 1. Cardiomegaly with stable to slightly progressed pulmonary edema. 2. Bilateral pleural effusions with persistent bibasilar consolidative opacities. The above report was generated using voice recognition software. It may contain grammatical, syntax o r spelling errors. Electronically signed by: Anthony Saavedra M.D. 04/05/2019 7:03 AM
[2019-04-05] MEDS: DOCUSATE SODIUM/SENNA 50/8.6MG TAB PO SCH ×2 (07:43→21:22)
[2019-04-05] MEDS: carvediloL 12.5 MG TAB PO SCH ×2 (07:43→21:21)
[2019-04-05] MEDS: AMLODIPINE BESYLATE 5 MG TAB PO SCH (07:43)
[2019-04-05] MEDS: cloNIDine HCL 0.3 MG TAB PO SCH ×2 (07:43→21:21)
[2019-04-05] MEDS: POLYETHYLENE (MIRALAX) 17 GM PACK PO SCH (07:43)
[2019-04-05] MEDS: ATORVASTATIN 20 MG TAB PO SCH (07:43)
[2019-04-05 08:24] LABS: Basophils # (auto) 0.02 K/uL (0-0.2); Basophils % (auto) 0.2 %; Eosinophils # (auto) 0.08 K/uL (0-0.5); Eosinophils % (auto) 0.7 %; Hematocrit (blood only) 34.8 % (37-47); Hemoglobin 11.6 g/dL (12.0-16.0); Immature Granulocytes # (auto) 0.06 K/uL (0.00-0.02); Immature Granulocytes % (auto) 0.5 %; Lymphocytes # (auto) 0.62 K/uL (1.2-3.4); Lymphocytes % (auto) 5.7 %; Mean Corpuscular Hemoglobin 27.9 pg (25-34); Mean Corpuscular Hgb Conc 33.3 g/dL (32-36); Mean Corpuscular Volume 83.7 fL (80-100); Mean Platelet Volume 9.9 fL (7.4-10.4); Monocytes # (auto) 1.37 K/uL (0.11-0.59); Monocytes % (auto) 12.5 %; Neutrophils # (auto) 8.79 K/uL (1.4-6.5); Neutrophils % (auto) 80.4 %; Platelet Count 284 K/uL (130-400); RDW Coefficient of Variation 15.3 % (11.5-14.5); Red Blood Count 4.16 M/uL (4.2-5.4); White Blood Count 10.94 K/uL (4.8-10.8)
[2019-04-05 08:44] LABS: INR 1.9 (0.9-1.1); Partial Thromboplastin Ratio 1.4; Partial Thromboplastin Time 36.8 Seconds (21.0-31.0)
[2019-04-05] MEDS ORDERED: FUROSEMIDE 40 MG in SYRINGE 0 ML IV SCH (09:00)
[2019-04-05 09:04] LABS: BUN Creatinine Ratio 20.1 (10-20); Calcium 8.8 mg/dl (8.5-10.1); Creatinine Clr Calc Pharmacy 22.9 ml/min; Est GFR (African American) 39.1; Est GFR (Non-African American) 33.7; Potassium 3.8 mmol/L (3.5-5.1)
--- NOTE | 2019-04-05 12:25 | Cardiology Progress Note ---
Date of Service April 05, 2019 Assessment & Plan (1) Acute on chronic diastolic heart failure: Received IV furosemide 40 mg this am. Holding lasix pending renal function panel tomorrow. (2) Splenic infarct: Continue coumadin. Increase activity. Recommend PT consult if primary team agrees. BP better. Subjective CC: follow up shortness of breath , abdominal pain Subjective: pt eating lunch. Off O2 right now. Respirator status much improved. Review of Systems Review of Systems: All systems reviewed & are unremarkable except as noted in HPI & below Cardiovascular: no chest pain, no dyspnea at rest and no edema Physical Exam Physical Exam: Temp Pulse Resp BP Pulse Ox 36.7 C 72 18 165/65 H 93 04/05/19 07:00 04/05/19 07:00 04/05/19 07:00 04/05/19 07:40 04/05/19 07:00 Constitutional: WD/WN, vitals as above Respiratory: mildly decreased BS at bases, no rales, rhonchi or wheezing Cardiovascular: Rate/Rhythm: regular rate Heart Sounds: + murmur (I/ SM) Vessels: no JVD Gastrointestinal (Abdomen): normal bowel sounds, soft, nontender, no h epatosplenomegaly Neurologic: PERRL, EOMI, accommodation nl, no face palsy, no dysarthria Results & Data Vital Signs (Past 12 Hours) Vital Signs Temp Pulse Pulse Resp BP BP Pulse Ox 04/05/19 07:40 165/65 H 04/05/19 07:00 36.7 C 72 18 158/53 H 93 04/05/19 04:58 36.8 C 74 22 160/65 H 94 04/05/19 01:14 72 18 156/66 H 93 04/05/19 01:00 68 Laboratory Results Coagulation 04/05/19 Range/Units 07:50 PT 19.0 H (9.0-12.0) Seconds APTT 36.8 H (21.0-31.0) Seconds CBC 04/05/19 Range/Units 07:50 WBC 10.94 H (4.8-10.8) K/uL RBC 4.16 L (4.2-5.4) M/uL Hgb 11.6 L (12.0-16.0) g/dL Hct 34.8 L (37-47) % Plt Count 284 (130-400) K/uL Neut # (Auto) 8.79 H (1.4-6.5) K/uL Lymph # (Auto) 0.62 L (1.2-3.4) K/uL [place] # (Auto) 1.37 H (0.11-0.59) K/uL Eos # (Auto) 0.08 (0-0.5) K/uL Baso # (Auto) 0.02 (0-0.2) K/uL Comprehensive Metabolic Panel 04/05/19 Range/Units 07:50 Sodium 136 (136-145) mmol/L Potassium 3.8 (3.5-5.1) mmol/L Chloride 105 (98-107) mmol/L Carbon Dioxide 24 (21-32) mmol/L BUN 28 H (7-18) mg/dl Creatinine 1.40 H (0.6-1.2) mg/dl Glucose 129 H (70-99) mg/dl Calcium 8.8 (8.5-10.1) mg/dl Intake and Output 04/04/19 04/05/19 04/05/19 22:59 06:59 14:59 Other: Other Intake Source ice chips # Unmeasured Voids 1
--- NOTE | 2019-04-05 14:46 | Palliative Care Consultation ---
Date of Consultation April 05, 2019 Assessment & Plan (1) Goals of care, counseling/discussion: -88 year old female who presented to the [facility] with abdominal pain. Additional PMH includes: HTN, DM, CHF, AMARIS. An abdominal CT scan was performed and showed a splenic infarct. Cardiology consulted who state that this is likely cardioembolic. LUCRECIA performed which showed ruptured cordae and severe valvular disease. Patient and family not wanting to pursue aggressive care-- no surgery. Even if spleen were to rupture/hemorrhage, they do not want surgery. Palliative care is consulted to discuss goals of care. -Met with patient and her daughter Luisa Garcia this morning in room 263. Patient is awake, alert and oriented x4. She states she is feeling much better today. Her pain is much-improved. -Discussed goals of care with patient and her daughter. both are in agreement that goal is for comfort. They are fine of course with patient continuing her regular medications and Coumadin. We talked about some complications that can occur such as bleeding and rupture of the spleen-- they both verbalize understanding. -Patient lives in [place], [place]. Her daughter Luisa Garcia has been livin with patient and has a job in [place], but also has a house here in [place]. They were visiting for the holiday when this episode occurred. The plan is for patient and her daughter to go back to [place] after hospitalization. -Both are in agreement with hospice. Luisa Garcia's goal is to get patient back to [facility] and have patient's car rental service attendant refer them to a hospice agency. -Spoke with case management. If patient continues to require oxygen, could get it ordered through [employer], as they are a [employer], in order to get patient portable oxygen for the ride home. From there, patient can see her regular car rental service attendant or PCP and have the hospice referral made. -If patient takes a sudden turn or declines, other arrangements could be made, but this is patient and daughter's current plan. -PT/OT are ordered-- need to mobilize patient. She was ambulatory prior to comin g to hospital. -Patient remains on 7L oxymask, is not on oxygen at home. -- try to wean oxygen as tolerated. Hopefully can at least wean to nasal cannula. -Patient's daughter is requesting that patient's car rental service attendant at [facility], Dr. Vishnu Saucedo, be informed of the situation. [phone] -I did not do a POLST form as patient lives in the [facility] [place]. -Will follow. -PPS currently 40%. (2) Acute on chronic diastolic heart failure: (3) Splenic infarct: History of Present Illness Attending Physician: Tolu Lagunas MD History of Present Illness This 88 year old female who presented to the [facility] with abdominal pain. Additio nal PMH includes: HTN, DM, CHF, AMARIS. An abdominal CT scan was performed and showed a splenic infarct. Cardiology consulted who state that this is likely cardioembolic. LUCRECIA performed which showed ruptured cordae and severe valvular disease. Patient and family not wanting to pursue aggressive care-- no surgery. Even if spleen were to rupture/hemorrhage, they do not want surgery. Palliative care is consulted to discuss goals of care. Thank you kindly for this consult. Palliative care team will follow as needed. 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) DM type 2 (diabetes mellitus, type 2) (Chronic) HTN (hypertension) (Chronic) Surgical History H/O repair of left rotator cuff (Chronic) H/O varicose vein stripping (Chronic) History of appendectomy (Chronic) History of hysterectomy (Chronic) Social History Preferred Language: Icelandic 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 Ability: Effective 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: No Beliefs That Will Affect Care: None marital status: / Current Living Situation: Family Current Living Situation Comment: lives w/ dtr Feels Safe at Home: Yes Smoking Status: Former smoker Hx Alcohol Use: No Hx Substance Use: No Review of Systems Review of Systems: Const: + weakness ENMT: No dysphagia Resp: No SOB--resolved Cardio: No chest pain, no edema GI: + abdominal pain but much improved today, no N/V MS: No musculoskeletal pain Neuro: No confusion Psych: No anxiety Physical Exam Constitutional: + frail appearing; no acute distress ENMT: external ear and nose normal, oropharynx normal Respiratory: normal respiratory effort; no labored breathing Auscultation: + diminished lung sounds Cardiovascular: RRR, no murmur, no edema Gastrointestinal (Abdomen): Inspection/Auscultation: normal bowel sounds Percussion/Palpation: + abdomen tender (LUQ) and abdomen soft Neurologic: moves all extremities and awake Psychiatric: Orientation: alert and oriented x 3 Insight: good insight Results & Data Vital Signs (Past 12 Hours) Vital Signs Temp Pulse Pulse Resp BP BP Pulse Ox 04/05/19 13:27 71 04/05/19 12:28 36.5 C 72 20 142/53 H 94 04/05/19 07:40 165/65 H 04/05/19 07:00 36.7 C 72 18 158/53 H 93 04/05/19 04:58 36.8 C 74 22 160/65 H 94 Time Spent Midlevel 70 minutes with >50% of the time spent at bedside with patient and family discussing condition and GOC.
[2019-04-05] MEDS: WARFARIN SOD 2.5 MG TAB PO SCH (16:54)
--- NOTE | 2019-04-05 18:09 | Hospitalist Progress Note ---
Date of Service April 05, 2019 Assessment & Plan (1) Abdominal pain: (2) Splenic infarct: Splenic infarct Left lower quadrant abdominal pain CT ABD:Probable splenic infarct occupying 40% of the mid and upper pole left splenic volume. Moderate atrophy left kidney. Mild nonobstructive ileus. Small bilateral pleural effusion H/O Right LE DVT many years ago--was on coumadin in the past Venous Doppler:No evidence of deep venous thrombosis. Portal venous duplex neg for VTE in portal, splenic veins ECHO:Showed mod dil LA, EF 55-60, severe mitral annular calcification, moderate to severe MR, mobile echodensity on ant mitral leaflet likely ruptured chord Discussed LUCRECIA findings with Dr German. No thrombus found. Mobile echodensity likely ruptured chord noted on TTE not seen likely artifactual per reported--as per prior hospitalist Started on IV Heparin-- discontinued Continue Coumadin Monitor INR:1.9 Appreciate surgery, cardiology input Currently patient not interested in any surgical procedures Appreciate Palliative care Input Pain control Plan is to eventually transition to hospice PT/OT Possible Pneumonia Leukocytosis CXR:Bilateral pleural effusions with persistent bibasilar consolidative opacities. Urine Cx: Negative Elevated Procalcitonin Empirically will treat with Doxycycline (3) Hypertension: Continue amlodipine, Coreg, clonidine and hydralazine Monitor (4) DM type 2 (diabetes mellitus, type 2): A1c is 7.1 Reports she is not on any antidiabetic at home Carb controlled diet (5) Pulmonary edema: (6) Acute on chronic diastolic heart failure: Received IV Lasix Monitor volume status Continue p.o. Lasix as able (7) DVT prophylaxis: on Coumadin SCD Subjective Patient is seen and examined at bedside Abd pain is improved Tolerating diet CXR suggestive of consolidation Reports constipation SOB is better Leukocytosis improved, elevated Procalcitonin Discussed with family at bedside Review of Systems Review of Systems: All systems reviewed & are unremarkable except as noted in HPI & below Physical Exam Physical Exam: Physical Exam: Vitals signs as noted above General Appearance:Moderately built and nourished, no apparent distress Head: normocephalic, Atraumatic Eyes: normal inspection, EOMI Neck: supple, Trachea midline Respiratory/Chest: Decreased breath sounds, CTA Cardiovascular: S1, S2, No murmur Abdomen/GI:Soft, + tender, Bowel sounds present Extremities/Musculoskelatal:normal inspection, no edema Neurologic/Psych:AAOX3, grossly no focal neurological deficits Skin: normal color, warm Results & Data Vital Signs (Past 12 Hours) Vital Signs Temp Pulse Pulse Resp BP BP Pulse Ox 04/05/19 16:24 75 04/05/19 15:28 36.8 C 72 19 155/73 H 94 04/05/19 13:27 71 04/05/19 12:28 36.5 C 72 20 142/53 H 94 04/05/19 07:40 165/65 H 04/05/19 07:00 36.7 C 72 18 158/53 H 93 Laboratory Results Short CBC 04/05/19 Range/Units 07:50 WBC 10.94 H (4.8-10.8) K/uL Hgb 11.6 L (12.0-16.0) g/dL Hct 34.8 L (37-47) % Plt Count 284 (130-400) K/uL BMP 04/05/19 07:50 Sodium 136 Potassium 3.8 Chloride 105 Carbon Dioxide 24 BUN 28 H Creatinine 1.40 H Glucose 129 H Calcium 8.8 (1) Abdominal pain Abdominal location: unspecified location Qualified Code(s): R10.9 - Unspecified abdominal pain (2) Hypertension Hypertension type: unspecified Qualified Code(s): I10 - Essential (primary) hypertension
[2019-04-05] MEDS: DOXYCYCLINE HYCLATE 100 MG CAP PO SCH (21:22)
[2019-04-06] MEDS: HydrALAZINE TAB 50 MG TAB PO SCH ×3 (01:09→16:54)
[2019-04-06] MEDS: HYDROmorphone INJ 1 MG/ML SYRINGE IV PRN (01:10)
[2019-04-06 08:16] LABS: Hematocrit (blood only) 37.2 % (37-47); Hemoglobin 12.2 g/dL (12.0-16.0); Mean Corpuscular Hgb Conc 32.8 g/dL (32-36); Mean Corpuscular Volume 85.5 fL (80-100); Mean Platelet Volume 9.2 fL (7.4-10.4); Platelet Count 331 K/uL (130-400); RDW Standard Deviation 46.8 fL (36.4-46.3); Red Blood Count 4.35 M/uL (4.2-5.4); White Blood Count 10.44 K/uL (4.8-10.8)
[2019-04-06 08:35] LABS: INR 1.8 (0.9-1.1); Prothrombin Time 17.8 Seconds (9.0-12.0)
[2019-04-06 08:47] LABS: BUN Creatinine Ratio 22.4 (10-20); Calcium 9.2 mg/dl (8.5-10.1); Creatinine Clr Calc Pharmacy 22.6 ml/min; Est GFR (African American) 38.7; Est GFR (Non-African American) 33.4; Potassium 4.1 mmol/L (3.5-5.1)
[2019-04-06] MEDS ORDERED: OXYCODONE HCL IR 5 MG TAB (IMMEDIATE RELEASE) PO PRN (08:52)
[2019-04-06] MEDS: cloNIDine HCL 0.3 MG TAB PO SCH ×2 (09:21→20:42)
[2019-04-06] MEDS: DOCUSATE SODIUM/SENNA 50/8.6MG TAB PO SCH ×2 (09:22→20:43)
[2019-04-06] MEDS: carvediloL 12.5 MG TAB PO SCH ×2 (09:22→20:43)
[2019-04-06] MEDS: DOXYCYCLINE HYCLATE 100 MG CAP PO SCH ×2 (09:22→20:43)
[2019-04-06] MEDS: ATORVASTATIN 20 MG TAB PO SCH (09:22)
[2019-04-06] MEDS: AMLODIPINE BESYLATE 5 MG TAB PO SCH (09:23)
[2019-04-06] MEDS: POLYETHYLENE (MIRALAX) 17 GM PACK PO SCH (09:30)
--- NOTE | 2019-04-06 10:27 | Cardiology Progress Note ---
Date of Service April 06, 2019 Assessment & Plan (1) Acute on chronic diastolic heart failure: Received furosemide 20 mg IV yesterday. Change to furosemide 20 mg PO daily today, 04/06. Creatinine stable was 1.4, 1.41 today, 04/06. (2) Splenic infarct: Continue atorvastatin and coumadin for treatment of presume atherosclerotic embolic from abdominal aorta or thrombus. INR 1.8 today on 2.5 mg of coumadin, however has only received a few doses and she is very frail and on antibiotics. I recommend continued treatment with 2.5 mg for now rather than increasing the dose. If this dose proves insufficient increase with caution. DC aspirin when INR reaches 2 or more. (3) LBBB (left bundle branch block): Stable. (4) Mild aortic stenosis: (5) Mild mitral stenosis: (6) HTN (hypertension): Labile HTN for which medications have been titrated including coreg, clonidine, hydralazine and furosemide Subjective Patient seen in follow up. She is in the bedside chair and state breathing continue to improve. No abdominal pain. Review of Systems Review of Systems: All systems reviewed & are unremarkable except as noted in HPI & below Cardiovascular: + dyspnea at rest (improving); no chest pain, no syncope and no edema Gastrointestinal: Abdominal pain improved. Physical Exam Physical Exam: Temp Pulse Resp BP Pulse Ox 36.9 C 70 18 172/68 H 93 04/06/19 07:00 04/06/19 07:00 04/06/19 07:00 04/06/19 07:00 04/06/19 07:00 Respiratory: Auscultation: + diminished lung sounds (mildly decreased BS at bases ); no rhonchi and no wheezes Neurologic: PERRL, EOMI, accommodation nl, no face palsy, no dysarthria Results & Data Vital Signs (Past 12 Hours) Vital Signs Temp Pulse Pulse Resp BP Pulse Ox 04/06/19 07:00 36.9 C 70 18 172/68 H 93 04/06/19 04:00 36.9 C 71 20 153/61 H 93 04/06/19 01:25 68 04/06/19 01:07 71 18 154/43 H 93
[2019-04-06] MEDS: FUROSEMIDE 20 MG TAB PO SCH (12:17)
--- NOTE | 2019-04-06 13:55 | Palliative Care Progress Note ---
Date of Service April 06, 2019 Assessment & Plan (1) Goals of care, counseling/discussion: -Patient is feeling well today-- no abdominal pain. -Discontinued IV Dilaudid. Start oxycodone IR 5mg for pain scale 1-5, 10mg for pain 6-10. Can have Q4h PRN. -Patient's daughter is requesting that patient's air carrier inspector at [facility], Dr. Vishnu Saucedo, be informed of the situation. [phone]-- I did relay this to Dr. Lagunas. -Plan is for patient to return home to [place] when medically stable. Will then pursue hospice care, which I discussed with patient and her daughter at length yesterday. -Removed patient's oxygen mask this moring. She was 91-92% on room air, but desaturated to 80s with ambulation to bathroom. placed on 4lnc. Case management can get portable oxygen set up if needed for the ride home. May need 2-step prior to discharge. -I did not do a POLST form as patient lives in the state of [place]. -PPS currently 40%. (2) Acute on chronic diastolic heart failure: (3) Splenic infarct: Subjective Patient states she is feeling better today- no abdominal pain. Used one dose of IV Dilaudid. Is anxious to get home to [place]. No family at bedside. Review of Systems Review of Systems: Const: + weakness ENMT: No dysphagia Resp: No SOB--resolved Cardio: No chest pain, no edema GI: no abdominal pain today, no N/V MS: No musculoskeletal pain Neuro: No confusion Psych: No anxiety Physical Exam Constitutional: + frail appearing; no acute distress ENMT: external ear and nose normal, oropharynx normal Respiratory: normal respiratory effort; no labored breathing Auscultation: + diminished lung sounds Cardiovascular: RRR, no murmur, no edema Gastrointestinal (Abdomen): Inspection/Auscultation: normal bowel sounds Percussion/Palpation: + abdomen tender (LUQ) and abdomen soft Neurologic: moves all extremities and awake Psychiatric: Orientation: alert and oriented x 3 Insight: good insight Results & Data Vital Signs (Past 12 Hours) Vital Signs Temp Pulse Resp BP Pulse Ox 04/06/19 11:00 36.7 C 68 20 155/61 H 95 12/06/19 07:00 36.9 C 70 18 172/68 H 93 04/06/19 04:00 36.9 C 71 20 153/61 H 93 PG Care Time/CCT Total # of Minutes Spent Total Time Spent with Patient: Total time spent is greater than 50% in coordination of care (as documented) at patient's floor/unit and/or counseling patient: Time Spent Midlevel 35 minutes with >50% of the time spent at bedside with patient and IDT discus sing and coordinating plan of care.
[2019-04-06] MEDS ORDERED: WARFARIN SOD 4 MG TAB PO SCH (16:00)
[2019-04-06] MEDS: WARFARIN SOD 2.5 MG TAB PO SCH (16:55)
[2019-04-06] MEDS: OXYCODONE HCL IR 5 MG TAB (IMMEDIATE RELEASE) PO PRN (17:13)
--- NOTE | 2019-04-06 17:40 | Hospitalist Progress Note ---
Date of Service April 06, 2019 Assessment & Plan (1) Abdominal pain: (2) Splenic infarct: Splenic infarct Left lower quadrant abdominal pain CT ABD:Probable splenic infarct occupying 40% of the mid and upper pole left splenic volume. Moderate atrophy left kidney. Mild nonobstructive ileus. Small bilateral pleural effusion H/O Right LE DVT many years ago--was on coumadin in the past Venous Doppler:No evidence of deep venous thrombosis. Portal venous duplex neg for VTE in portal, splenic veins ECHO:Showed mod dil LA, EF 55-60, severe mitral annular calcification, moderate to severe MR, mobile echodensity on ant mitral leaflet likely ruptured chord Discussed LUCRECIA findings with Dr German. No thrombus found. Mobile echodensity likely ruptured chord noted on TTE not seen likely artifactual per reported--as per prior hospitalist Started on IV Heparin-- discontinued Continue Coumadin Monitor INR:1.8 Appreciate surgery, cardiology input Currently patient not interested in any surgical procedures Appreciate Palliative care Input Abdominal pain is improving Plan is to eventually transition to hospice PT/OT Possible Pneumonia Leukocytosis--Resolved CXR:Bilateral pleural effusions with persistent bibasilar consolidative opacities. Urine Cx: Negative Elevated Procalcitonin Continue Doxycycline (3) Hypertension: Continue amlodipine, Coreg, clonidine and hydralazine Monitor (4) DM type 2 (diabetes mellitus, type 2): A1c is 7.1 Reports she is not on any antidiabetic at home Carb controlled diet (5) Pulmonary edema: (6) Acute on chronic diastolic heart failure: Acute on chronic diastolic heart failure Hypoxia Received IV Lasix Monitor volume status Continue p.o. Lasix May need to step prior to discharge (7) DVT prophylaxis: on Coumadin SCD Subjective Patient is seen and examined at bedside Sitting in chair with no distress this morning Feels much better today Abdominal pain, shortness of breath much improved No new complaints Eager to get discharged Leukocytosis normalized Procalcitonin trending down Review of Systems Review of Systems: All systems reviewed & are unremarkable except as noted in HPI & below Physical Exam Physical Exam: Physical Exam: Vitals signs as noted above General Appearance:Moderately built and nourished, no apparent distress Head: normocephalic, Atraumatic Eyes: normal inspection, EOMI Neck: supple, Trachea midline Respiratory/Chest: Decreased breath sounds, CTA Cardiovascular: S1, S2, No murmur Abdomen/GI:Soft, + tender, Bowel sounds present Extremities/Musculoskelatal:normal inspection, no edema Neurologic/Psych:AAOX3, grossly no focal neurological deficits Skin: normal color, warm Results & Data Vital Signs (Past 12 Hours) Vital Signs Temp Pulse Resp BP BP Pulse Ox 04/06/19 15:05 36.4 C L 71 20 164/64 H 162/79 H 96 04/06/19 11:00 36.7 C 68 20 155/61 H 95 04/06/19 07:00 36.9 C 70 18 172/68 H 93 Laboratory Results Short CBC 04/06/19 Range/Units 07:45 WBC 10.44 (4.8-10.8) K/uL Hgb 12.2 (12.0-16.0) g/dL Hct 37.2 (37-47) % Plt Count 331 (130-400) K/uL BMP 04/06/19 07:45 Sodium 135 L Potassium 4.1 Chloride 104 Carbon Dioxide 26 BUN 32 H Creatinine 1.41 H Glucose 161 H Calcium 9.2 (1) Abdominal pain Abdominal location: unspecified location Qualified Code(s): R10.9 - Unspecified abdominal pain (2) Hypertension Hypertension type: unspecified Qualified Code(s): I10 - Essential (primary) hypertension
[2019-04-07] MEDS: HydrALAZINE TAB 50 MG TAB PO SCH ×3 (00:13→16:08)
[2019-04-07] MEDS: OXYCODONE HCL IR 5 MG TAB (IMMEDIATE RELEASE) PO PRN (03:37)
[2019-04-07] MEDS ORDERED: SIMETHICONE 80 MG CHEW PO ONE (05:15)
[2019-04-07] MEDS ORDERED: HydrALAZINE HCL 20 MG/ML VIAL IV STA (05:26)
[2019-04-07] MEDS ORDERED: PROMETHAZINE HCL 12.5 MG in SODIUM CHLORIDE 0.9% 50 ML IV PRN (05:26)
[2019-04-07] MEDS: HydrALAZINE HCL 20 MG/ML VIAL IV PRN (05:50)
[2019-04-07] MEDS: AMLODIPINE BESYLATE 5 MG TAB PO SCH (06:34)
[2019-04-07] MEDS: cloNIDine HCL 0.3 MG TAB PO SCH ×2 (06:35→21:10)
[2019-04-07 06:50] LABS: INR 1.8 (0.9-1.1); Prothrombin Time 17.5 Seconds (9.0-12.0)
[2019-04-07 07:09] LABS: BUN Creatinine Ratio 23.5 (10-20); Calcium 9.1 mg/dl (8.5-10.1); Creatinine Clr Calc Pharmacy 22.4 ml/min; Est GFR (African American) 38.1; Est GFR (Non-African American) 32.8
[2019-04-07] MEDS: FUROSEMIDE 20 MG TAB PO SCH (09:33)
[2019-04-07] MEDS: DOXYCYCLINE HYCLATE 100 MG CAP PO SCH ×2 (09:33→21:11)
[2019-04-07] MEDS: DOCUSATE SODIUM/SENNA 50/8.6MG TAB PO SCH (09:34)
[2019-04-07] MEDS: ATORVASTATIN 20 MG TAB PO SCH (09:34)
[2019-04-07] MEDS: carvediloL 12.5 MG TAB PO SCH ×2 (09:34→21:11)
[2019-04-07] MEDS: POLYETHYLENE (MIRALAX) 17 GM PACK PO SCH (09:35)
[2019-04-07] MEDS ORDERED: POLYETHYLENE (MIRALAX) 17 GM PACK PO PRN (12:03)
--- NOTE | 2019-04-07 12:24 | Cardiology Progress Note ---
Date of Service April 07, 2019 Assessment & Plan (1) Acute on chronic diastolic heart failure: Patient with physical exam findings consistent with pleural effusions. She continues to require oxygen. I will transition her back to IV Lasix, 20 mill grams IV twice daily. Follow basic metabolic panel daily. (2) Splenic infarct: Continue atorvastatin and coumadin for treatment of presume atherosclerotic embolic from abdominal aorta or thrombus. INR 1.8 today. Continue daily dosing for goal INR of 2.0-3.0. I would avoid titration of Coumadin at this time as the patient is frail. Discontinue aspirin when INR reaches 2.0. (3) LBBB (left bundle branch block): (4) Mild aortic stenosis: (5) Mild mitral stenosis: (6) HTN (hypertension): Labile HTN for which medications have been titrated including coreg, clonidine, hydralazine and furosemide Subjective Patient seen and examined at the bedside. Dyspnea at rest improving. Wearing supplemental oxygen. Family present at bedside. Patient denies chest pain or palpitations. No lightheadedness, dizziness, syncope, or near syncope. Mild pedal edema noted. Transition to oral Lasix today. Fluid balance +575 cc. Weight unchanged. Review of Systems Review of Systems: All systems reviewed & are unremarkable except as noted in HPI & below Physical Exam Constitutional: + thin Respiratory: normal respiratory effort Auscultation: + breath sounds absent (Bilateral bases.) and + rales (Mid and lower lung boogie); no rhonchi and no wheezes Cardiovascular: Rate/Rhythm: regular rate Heart Sounds: + murmur (2/6 KAIN); no cardiac rub Extremities: + edema (1+ B/L pedal) Results & Data Vital Signs (Past 12 Hours) Vital Signs Temp Pulse Pulse Resp BP Pulse Ox 04/07/19 11:31 36.6 C 73 18 151/63 H 95 04/07/19 07:44 36.7 C 66 18 148/65 H 90 04/07/19 06:20 81 20 180/80 H 95 04/07/19 05:34 77 189/75 H 04/07/19 05:21 77 193/76 H 04/07/19 05:18 79 24 199/77 H 94 04/07/19 03:08 37.0 C 73 18 161/67 H 93
[2019-04-07] MEDS: FUROSEMIDE 20 MG in SYRINGE 0 ML IV SCH (16:07)
[2019-04-07] MEDS: WARFARIN SOD 2.5 MG TAB PO SCH (16:08)
--- NOTE | 2019-04-07 18:33 | Hospitalist Progress Note ---
Date of Service April 07, 2019 Assessment & Plan (1) Abdominal pain: (2) Splenic infarct: Splenic infarct Left lower quadrant abdominal pain CT ABD:Probable splenic infarct occupying 40% of the mid and upper pole left splenic volume. Moderate atrophy left kidney. Mild nonobstructive ileus. Small bilateral pleural effusion H/O Right LE DVT many years ago--was on coumadin in the past Venous Doppler:No evidence of deep venous thrombosis. Portal venous duplex neg for VTE in portal, splenic veins ECHO:Showed mod dil LA, EF 55-60, severe mitral annular calcification, moderate to severe MR, mobile echodensity on ant mitral leaflet likely ruptured chord Discussed LUCRECIA findings with Dr German. No thrombus found. Mobile echodensity likely ruptured chord noted on TTE not seen likely artifactual per reported--as per prior hospitalist Started on IV Heparin-- discontinued Continue Coumadin Monitor INR:1.8 Appreciate surgery, cardiology input Currently patient not interested in any surgical procedures Appreciate Palliative care Input Abdominal pain is improving Plan is to eventually transition to hospice PT/OT Abdominal pain much improved Possible Pneumonia Leukocytosis--Resolved CXR:Bilateral pleural effusions with persistent bibasilar consolidative opacities. Urine Cx: Negative Elevated Procalcitonin Continue Doxycycline Day # 3 (3) Hypertension: Continue amlodipine, Coreg, clonidine and hydralazine Monitor (4) DM type 2 (diabetes mellitus, type 2): A1c is 7.1 Reports she is not on any antidiabetic at home Carb controlled diet (5) Pulmonary edema: (6) Acute on chronic diastolic heart failure: Acute on chronic diastolic heart failure Hypoxia Monitor volume status Continue IV Lasix Wean off of supplemental oxygen as able May need 2 step prior to discharge Monitor volume status (7) DVT prophylaxis: on Coumadin SCD Subjective Patient is seen and examined at bedside States having poor sleep overnight Shortness of breath improving States abdominal pain only with movement Family at bedside Review of Systems Review of Systems: All systems reviewed & are unremarkable except as noted in HPI & below Physical Exam Physical Exam: Physical Exam: Vitals signs as noted above General Appearance:Moderately built and nourished, no apparent distress Head: normocephalic, Atraumatic Eyes: normal inspection, EOMI Neck: supple, Trachea midline Respiratory/Chest: Decreased breath sounds, basilar rales Cardiovascular: S1, S2, No murmur Abdomen/GI:Soft, + tender, Bowel sounds present Extremities/Musculoskelatal:normal inspection, no edema Neurologic/Psych:AAOX3, grossly no focal neurological deficits Skin: normal color, warm Results & Data Vital Signs (Past 12 Hours) Vital Signs Temp Pulse Resp BP Pulse Ox 04/07/19 16:14 94 04/07/19 14:51 36.8 C 74 18 176/67 H 95 04/07/19 11:31 36.6 C 73 18 151/63 H 95 04/07/19 07:44 36.7 C 66 18 148/65 H 90 Laboratory Results [facility] 04/07/19 05:39 Sodium 135 L Potassium 4.0 Chloride 102 Carbon Dioxide 25 BUN 34 H Creatinine 1.43 H Glucose 173 H Calcium 9.1 (1) Abdominal pain Abdominal location: unspecified location Qualified Code(s): R10.9 - Unspecified abdominal pain (2) Hypertension Hypertension type: unspecified Qualified Code(s): I10 - Essential (primary) hypertension
[2019-04-08] MEDS: HydrALAZINE TAB 50 MG TAB PO SCH ×4 (00:22→20:48)
[2019-04-08] MEDS: HydrALAZINE HCL 20 MG/ML VIAL IV PRN ×2 (03:34→22:53)
[2019-04-08] MEDS ORDERED: LORazepam 0.5 MG TAB PO STA (04:34)
--- NOTE | 2019-04-08 04:38 | 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 Note ---
Date of Service: April 08, 2019 Patient noted to be agitated as per RN. AP Delirium Zyprexa as needed Hold hydroxyzine for now.
[2019-04-08] MEDS: carvediloL 12.5 MG TAB PO SCH ×2 (04:56→20:47)
[2019-04-08 07:18] LABS: Hematocrit (blood only) 38.4 % (37-47); Mean Corpuscular Hemoglobin 28.3 pg (25-34); Mean Corpuscular Hgb Conc 33.9 g/dL (32-36); Mean Corpuscular Volume 83.5 fL (80-100); Mean Platelet Volume 8.8 fL (7.4-10.4); Platelet Count 373 K/uL (130-400); RDW Coefficient of Variation 14.5 % (11.5-14.5); RDW Standard Deviation 44.6 fL (36.4-46.3)
[2019-04-08 07:27] LABS: INR 2.3 (0.9-1.1)
[2019-04-08 08:13] LABS: BUN Creatinine Ratio 23.5 (10-20); Calcium 8.6 mg/dl (8.5-10.1); Est GFR (African American) 44.4; Est GFR (Non-African American) 38.3; Potassium 3.1 mmol/L (3.5-5.1)
--- NOTE | 2019-04-08 08:19 | 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 Note ---
Date of Service: April 08, 2019 Made aware by RN of uncontrolled blood pressure. SBP 140-190s the last 24 hours. Patient slightly anxious as per RN. AP Hypertensive urgency Increase hydralazine from 50 mg TID to 100 mg TID for now. Low-dose Ativan 1 dose Will relay to AM provider.
[2019-04-08] MEDS ORDERED: POTASSIUM CHLORIDE 20 MEQ TABCR PO STA (09:23)
[2019-04-08] MEDS: cloNIDine HCL 0.3 MG TAB PO SCH ×2 (09:24→20:46)
[2019-04-08] MEDS: AMLODIPINE BESYLATE 5 MG TAB PO SCH (09:24)
[2019-04-08] MEDS: ATORVASTATIN 20 MG TAB PO SCH (09:24)
[2019-04-08] MEDS: DOXYCYCLINE HYCLATE 100 MG CAP PO SCH ×2 (09:25→20:47)
[2019-04-08] MEDS: FUROSEMIDE 20 MG in SYRINGE 0 ML IV SCH ×2 (09:26→17:57)
--- NOTE | 2019-04-08 10:19 | Cardiology Progress Note ---
Date of Service April 08, 2019 Assessment & Plan (1) Acute on chronic diastolic heart failure: Respiratory status improving. Continue lasix 20mg IV BID. Physical exam findings consistent with pleural effusions. She continues to require oxygen. Follow fluid balance, weight, and basic metabolic panel daily. (2) Splenic infarct: Continue atorvastatin and coumadin for treatment of presume atherosclerotic embolic from abdominal aorta or thrombus. INR therapeutic today. Continue daily dosing for goal INR of 2.0-3.0. Discontinue aspirin. (3) LBBB (left bundle branch block): Stable. (4) Mild aortic stenosis: (5) Mild mitral stenosis: (6) HTN (hypertension): Labile HTN for which medications have been titrated including coreg, clonidine, hydralazine and furosemide Subjective Patient seen and examined at the bedside. Respiratory status improved with titration of lasix. Creatinine trending downward. Notes abdominal discomfort with movement which is unchanged. BP elevated. Review of Systems Cardiovascular: + dyspnea at rest (improving); no chest pain, no syncope and no edema Gastrointestinal: Abdominal pain improved. Physical Exam Constitutional: + thin Respiratory: normal respiratory effort Auscultation: + breath sounds absent (Bilateral bases.) and + rales (Mid and lower lung boogie); no rhonchi and no wheezes Cardiovascular: Rate/Rhythm: regular rate Heart Sounds: + murmur (2/6 KAIN); no cardiac rub Extremities: + edema (1+ B/L pedal) Results & Data Vital Signs (Past 12 Hours) Vital Signs Temp Pulse Pulse Resp BP BP Pulse Ox 04/08/19 06:48 36.8 C 77 18 181/72 H 91 04/08/19 04:32 183/70 H 04/08/19 03:00 36.7 C 77 21 180/72 H 91 04/07/19 23:09 79 04/07/19 22:50 36.8 C 76 18 161/62 H 92
[2019-04-08] MEDS: OXYCODONE HCL IR 5 MG TAB (IMMEDIATE RELEASE) PO PRN (10:28)
--- NOTE | 2019-04-08 13:56 | Hospitalist Progress Note ---
Date of Service April 08, 2019 Assessment & Plan (1) Abdominal pain: (2) Splenic infarct: Splenic infarct Left lower quadrant abdominal pain CT ABD:Probable splenic infarct occupying 40% of the mid and upper pole left splenic volume. Moderate atrophy left kidney. Mild nonobstructive ileus. Small bilateral pleural effusion H/O Right LE DVT many years ago--was on coumadin in the past Venous Doppler:No evidence of deep venous thrombosis. Portal venous duplex neg for VTE in portal, splenic veins ECHO:Showed mod dil LA, EF 55-60, severe mitral annular calcification, moderate to severe MR, mobile echodensity on ant mitral leaflet likely ruptured chord Discussed LUCRECIA findings with Dr German. No thrombus found. Mobile echodensity likely ruptured chord noted on TTE not seen likely artifactual per reported--as per prior hospitalist Started on IV Heparin-- discontinued Continue Coumadin at 2mg daily Monitor INR:2.3 Appreciate surgery, cardiology input Patient not interested in any surgical procedures Appreciate Palliative care Input Abdominal pain much better Plan is to eventually transition to hospice PT/OT Possible Pneumonia Leukocytosis--Resolved CXR:Bilateral pleural effusions with persistent bibasilar consolidative opacities. Urine Cx: Negative Elevated Procalcitonin Continue Doxycycline Day # 4/7 (3) Hypertension: Continue amlodipine, Coreg, clonidine and hydralazine Monitor (4) DM type 2 (diabetes mellitus, type 2): A1c is 7.1 Reports she is not on any antidiabetic at home Carb controlled diet (5) Pulmonary edema: (6) Acute on chronic diastolic heart failure: Acute on chronic diastolic heart failure Hypoxia Monitor volume status Continue IV Lasix Wean off of supplemental oxygen as able May need 2 step prior to discharge volume status improving Saturating well with minimal supplemental oxygen support (7) DVT prophylaxis: on Coumadin Code Status DNI/DNR Disposition PT/OT: recommends return Home Subjective Patient is seen and examined at bedside States having transient chest pain this morning which currently resolved Denies abdominal pain today Shortness of breath continues to improve Offers no other complaints Review of Systems Review of Systems: All systems reviewed & are unremarkable except as noted in HPI & below Physical Exam Physical Exam: Physical Exam: Vitals signs as noted above General Appearance:Moderately built and nourished, no apparent distress Head: normocephalic, Atraumatic Eyes: normal inspection, EOMI Neck: supple, Trachea midline Respiratory/Chest: Decreased breath sounds, basilar rales Cardiovascular: S1, S2, No murmur Abdomen/GI:Soft, + tender, Bowel sounds present Extremities/Musculoskelatal:normal inspection, no edema Neurologic/Psych:AAOX3, grossly no focal neurological deficits Skin: normal color, warm Results & Data Vital Signs (Past 12 Hours) Vital Signs Temp Pulse Resp BP BP Pulse Ox 04/08/19 13:05 36.6 C 75 20 142/60 H 96 04/08/19 06:48 36.8 C 77 18 181/72 H 91 04/08/19 04:32 183/70 H 04/08/19 03:00 36.7 C 77 21 180/72 H 91 Laboratory Results Short CBC 04/08/19 Range/Units 06:37 WBC 9.00 (4.8-10.8) K/uL Hgb 13.0 (12.0-16.0) g/dL Hct 38.4 (37-47) % Plt Count 373 (130-400) K/uL BMP 04/08/19 06:37 Sodium 136 Potassium 3.1 L D Chloride 103 Carbon Dioxide 27 BUN 30 H Creatinine 1.26 H Glucose 162 H Calcium 8.6 (1) Abdominal pain Abdominal location: unspecified location Qualified Code(s): R10.9 - Unspecified abdominal pain (2) Hypertension Hypertension type: unspecified Qualified Code(s): I10 - Essential (primary) hypertension
[2019-04-08] MEDS ORDERED: WARFARIN SOD 2 MG TAB PO SCH (16:00)
[2019-04-08] MEDS: POTASSIUM CHLORIDE 20 MEQ TABCR PO SCH (20:47)
[2019-04-09] MEDS: HydrALAZINE HCL 20 MG/ML VIAL IV PRN (04:57)
[2019-04-09] MEDS: HydrALAZINE TAB 50 MG TAB PO SCH ×3 (05:58→21:23)
[2019-04-09 07:55] LABS: INR 2.7 (0.9-1.1); Prothrombin Time 26.1 Seconds (9.0-12.0)
[2019-04-09 08:17] LABS: BUN Creatinine Ratio 17.7 (10-20); Calcium 9.2 mg/dl (8.5-10.1); Creatinine Clr Calc Pharmacy 22.2 ml/min; Est GFR (African American) 39.1; Est GFR (Non-African American) 33.7; Magnesium 1.8 mg/dl (1.8-2.4)
[2019-04-09] MEDS: DOXYCYCLINE HYCLATE 100 MG CAP PO SCH ×2 (08:27→21:22)
[2019-04-09] MEDS: AMLODIPINE BESYLATE 5 MG TAB PO SCH (08:27)
[2019-04-09] MEDS: carvediloL 12.5 MG TAB PO SCH ×2 (08:28→21:26)
[2019-04-09] MEDS: FUROSEMIDE 20 MG in SYRINGE 0 ML IV SCH ×2 (08:28→17:32)
[2019-04-09] MEDS: ATORVASTATIN 20 MG TAB PO SCH (08:28)
[2019-04-09] MEDS: cloNIDine HCL 0.3 MG TAB PO SCH ×2 (08:29→21:26)
[2019-04-09] MEDS: POTASSIUM CHLORIDE 20 MEQ TABCR PO SCH ×2 (08:29→21:22)
[2019-04-09] MEDS: DOCUSATE SODIUM 100 MG CAP PO SCH ×2 (10:17→21:20)
--- NOTE | 2019-04-09 14:37 | Cardiology Progress Note ---
Date of Service April 09, 2019 Assessment & Plan (1) Acute on chronic diastolic heart failure: Respiratory status and blood pressure control improving. Continue lasix 20mg IV BID. Follow fluid balance, weight, and basic metabolic panel daily. (2) Splenic infarct: Continue atorvastatin and coumadin for treatment of presume atherosclerotic embolic from abdominal aorta or thrombus. INR therapeutic today. Continue daily dosing for goal INR of 2.0-3.0. Aspirin discontinued. (3) LBBB (left bundle branch block): Stable. (4) Mild aortic stenosis: (5) Mild mitral stenosis: (6) HTN (hypertension): Control of labile HTN improving. Medications titrated during hospitalization including coreg, clonidine, hydralazine and furosemide. Subjective Patient seen and examined at the bedside. Respiratory status improved with titration of lasix. Creatinine unchanged. Notes abdominal discomfort with move ment which is unchanged. BP improved with diuretic therapy. Daughter is present at bedside. She offers no additional concerns/complaints at this time. Review of Systems Review of Systems: All systems reviewed & are unremarkable except as noted in HPI & below Physical Exam Constitutional: + thin Respiratory: normal respiratory effort Auscultation: + breath sounds absent (Bilateral bases.) and + rales (Mid and lower lung boogie); no rhonchi and no wheezes Cardiovascular: Rate/Rhythm: regular rate Heart Sounds: + murmur (2/6 KAIN); no cardiac rub Extremities: + edema (1+ B/L pedal) Results & Data Vital Signs (Past 12 Hours) Vital Signs Temp Pulse Pulse Resp BP BP Pulse Ox 04/09/19 13:24 79 04/09/19 11:22 36.8 C 65 16 149/63 H 94 04/09/19 07:22 36.8 C 79 16 163/64 H 94 04/09/19 05:59 171/70 H 04/09/19 04:49 36.7 C 77 18 172/63 H 93
[2019-04-09] MEDS ORDERED: WARFARIN SOD 1 MG TAB PO SCH (16:00)
--- NOTE | 2019-04-09 18:20 | Hospitalist Progress Note ---
Date of Service April 09, 2019 Assessment & Plan (1) Abdominal pain: (2) Splenic infarct: Splenic infarct Left lower quadrant abdominal pain CT ABD:Probable splenic infarct occupying 40% of the mid and upper pole left splenic volume. Moderate atrophy left kidney. Mild nonobstructive ileus. Small bilateral pleural effusion H/O Right LE DVT many years ago--was on coumadin in the past Venous Doppler:No evidence of deep venous thrombosis. Portal venous duplex neg for VTE in portal, splenic veins ECHO:Showed mod dil LA, EF 55-60, severe mitral annular calcification, moderate to severe MR, mobile echodensity on ant mitral leaflet likely ruptured chord Discussed LUCRECIA findings with Dr German. No thrombus found. Mobile echodensity likely ruptured chord noted on TTE not seen likely artifactual per reported--as per prior hospitalist Patient not interested in any surgical procedures Started on IV Heparin-- discontinued Decrease Coumadin to 1mg daily Monitor INR:2.7 Appreciate surgery, cardiology, Palliative care input Plan is to eventually transition to hospice Abdominal pain slowly improving Possible Pneumonia Leukocytosis--Resolved CXR:Bilateral pleural effusions with persistent bibasilar consolidative opacities. Urine Cx: Negative Elevated Procalcitonin Continue Doxycycline Day # 5/7 (3) Hypertension: Continue amlodipine, Coreg, clonidine and hydralazine Monitor (4) DM type 2 (diabetes mellitus, type 2): A1c is 7.1 Reports she is not on any antidiabetic at home Carb controlled diet (5) Pulmonary edema: (6) Acute on chronic diastolic heart failure: Acute on chronic diastolic heart failure Hypoxia Monitor volume status Continue IV Lasix as per Cardiology Wean off of supplemental oxygen as able May need 2 step prior to discharge Saturating well with minimal supplemental oxygen support (7) DVT prophylaxis: on Coumadin Code Status DNI/DNR Disposition PT/OT: recommends return Home Subjective Patient is seen and examined at bedside Reports abdominal bloating and constipation Has minimal abdominal pain Denies any chest pain, shortness of breath, dizziness today Review of Systems Review of Systems: All systems reviewed & are unremarkable except as noted in HPI & below Physical Exam Physical Exam: Physical Exam: Vitals signs as noted above General Appearance:Moderately built and nourished, no apparent distress Head: normocephalic, Atraumatic Eyes: normal inspection, EOMI Neck: supple, Trachea midline Respiratory/Chest: Decreased breath sounds, basilar rales Cardiovascular: S1, S2, + murmur Abdomen/GI:Soft, non tender, Bowel sounds present Extremities/Musculoskelatal:normal inspection, no edema Neurologic/Psych:AAOX3, grossly no focal neurological deficits Skin: normal color, warm Results & Data Vital Signs (Past 12 Hours) Vital Signs Temp Pulse Pulse Resp BP BP Pulse Ox 04/09/19 17:44 93 04/09/19 17:43 90 04/09/19 15:09 36.9 C 77 17 153/77 H 91 04/09/19 13:24 79 04/09/19 11:22 36.8 C 65 16 149/63 H 94 04/09/19 07:22 36.8 C 79 16 163/64 H 94 Laboratory Results [facility] 04/09/19 07:34 Sodium 139 Potassium 4.0 Chloride 104 Carbon Dioxide 32 BUN 25 H Creatinine 1.40 H Glucose 170 H Calcium 9.2 (1) Abdominal pain Abdominal location: unspecified location Qualified Code(s): R10.9 - Unspecified abdominal pain (2) Hypertension Hypertension type: unspecified Qualified Code(s): I10 - Essential (primary) hypertension
[2019-04-10] MEDS: HydrALAZINE TAB 50 MG TAB PO SCH ×3 (06:22→21:32)
[2019-04-10 07:10] LABS: Hematocrit (blood only) 35.9 % (37-47); Hemoglobin 11.9 g/dL (12.0-16.0); Mean Corpuscular Hemoglobin 27.7 pg (25-34); Mean Corpuscular Hgb Conc 33.1 g/dL (32-36); Mean Corpuscular Volume 83.5 fL (80-100); Mean Platelet Volume 8.9 fL (7.4-10.4); Platelet Count 320 K/uL (130-400); RDW Coefficient of Variation 14.5 % (11.5-14.5); RDW Standard Deviation 44.3 fL (36.4-46.3); White Blood Count 10.06 K/uL (4.8-10.8)
[2019-04-10 07:18] LABS: Prothrombin Time 28.6 Seconds (9.0-12.0)
[2019-04-10 07:56] LABS: BUN Creatinine Ratio 17.2 (10-20); Calcium 8.8 mg/dl (8.5-10.1); Creatinine Clr Calc Pharmacy 23.8 ml/min; Est GFR (African American) 42.7; Est GFR (Non-African American) 36.9; Potassium 3.7 mmol/L (3.5-5.1)
[2019-04-10] MEDS: POTASSIUM CHLORIDE 20 MEQ TABCR PO SCH ×2 (08:50→21:33)
[2019-04-10] MEDS: DOCUSATE SODIUM 100 MG CAP PO SCH ×2 (08:51→21:32)
[2019-04-10] MEDS: ATORVASTATIN 20 MG TAB PO SCH (08:51)
[2019-04-10] MEDS: carvediloL 12.5 MG TAB PO SCH ×2 (08:51→21:32)
[2019-04-10] MEDS: cloNIDine HCL 0.3 MG TAB PO SCH ×2 (08:51→21:33)
[2019-04-10] MEDS: FUROSEMIDE 20 MG in SYRINGE 0 ML IV SCH ×2 (08:51→17:51)
[2019-04-10] MEDS: AMLODIPINE BESYLATE 5 MG TAB PO SCH (08:51)
[2019-04-10] MEDS: DOXYCYCLINE HYCLATE 100 MG CAP PO SCH ×2 (08:51→21:33)
[2019-04-10] MEDS ORDERED: bisacodyL 10 MG SUPP PR STA (10:30)
--- NOTE | 2019-04-10 10:33 | Palliative Care Progress Note ---
Date of Service April 10, 2019 Assessment & Plan (1) Goals of care, counseling/discussion: -Patient feels good today. She is sitting in her bedside chair in no apparent distress. She actually looks more improved than she has last week. -Patient c/o abdominal discomfort. She reports not having a BM in two days. She stated that she does not like taking the oral medications for bowels, discussed a suppository which she was receptive to. I ordered Dulcolax 10 mg OH. Patient is feeling well today-- no abdominal pain. -Patient has oxycodone IR 5mg for pain scale 1-5, 10mg for pain 6-10. Can have Q4h PRN.She has not utilized any pain medications over the past 24 hours. -Plan is for patient to return home to [place] when medically stable. Patient still receiving IV Lasix, so once converted to PO, patient will likely be discharged, per discussion with the hospitalist. -Once discharged, Hospice care has been arranged at home per the patients daughter arrangement. -patient continues to be ambulatory and desaturates without O2. She currently has [address], but does not keep it on all of the time. -Case management can get portable oxygen set up if needed for the ride home. May need 2-step prior to discharge. -I did not do a POLST form as patient lives in the state of [place]. -PPS 40% -Pt without acute needs at this time. Palliative Care will sign off. Should she require any additional support, please feel free to contact our service. (2) Acute on chronic diastolic heart failure: (3) Splenic infarct: Subjective Patient is seen and examined at bedside She was sitting in her bedside chair during my visit Reports abdominal bloating and constipation Has minimal abdominal pain 07/09 Denies any SOB, dizziness, palpitations, chest pain Review of Systems Review of Systems: Const: + weakness ENMT: No dysphagia Resp: No SOB Cardio: No chest pain, no edema GI: no abdominal pain today, no N/V MS: No musculoskeletal pain Neuro: No confusion Psych: No anxiety Results & Data Vital Signs (Past 12 Hours) Vital Signs Temp Pulse Pulse Resp BP BP Pulse Ox 04/10/19 07:11 37 C 68 16 167/63 H 96 04/10/19 06:22 163/65 H 04/10/19 03:25 36.4 C L 51 L 18 113/57 L 91 04/09/19 23:55 79 04/09/19 23:28 37.0 C 65 19 142/51 H 93 PG Care Time/CCT Total # of Minutes Spent Total Time Spent with Patient: Total time spent is greater than 50% in coordination of care (as documented) at patient's floor/unit and/or counseling patient: 35 Time Spent Midlevel Total time spent 35 minutes with > 50% of that time spent assessing the patient, discussing symptom management with the patient as well as the IDT.
--- NOTE | 2019-04-10 12:57 | Cardiology Progress Note ---
Date of Service April 10, 2019 Assessment & Plan (1) Acute on chronic diastolic heart failure: Respiratory status and blood pressure continue to improve with IV diuretic therapy. Continue lasix 20mg IV BID. Follow fluid balance, weight, and basic metabolic panel daily. (2) Splenic infarct: Continue atorvastatin and coumadin for treatment of presumed atherosclerotic emboli from abdominal aorta or thrombus. INR borderline supratherapeutic today. Hold warfarin today. Repeat INR in a.m. Aspirin discontinued. (3) LBBB (left bundle branch block): Stable. (4) Mild aortic stenosis: (5) Mild mitral stenosis: (6) HTN (hypertension): Control of labile HTN improving. Medications titrated during hospitalization including coreg, clonidine, hydralazine and furosemide. Subjective Patient seen and examined the bedside. Denies chest pain. Shortness of breath improving. Abdominal discomfort unchanged. Tolerating diet and medications. She offers no other concerns/complaints at this time. Review of Systems Cardiovascular: + dyspnea at rest (improving); no chest pain, no syncope and no edema Gastrointestinal: Abdominal pain improved. Physical Exam Constitutional: + thin Respiratory: normal respiratory effort Auscultation: + breath sounds absent (Bilateral bases.) and + rales (Mid and lower lung boogie); no rhonchi and no wheezes Cardiovascular: Rate/Rhythm: regular rate Heart Sounds: + murmur (2/6 KAIN); no cardiac rub Extremities: + edema (1+ B/L pedal) Results & Data Vital Signs (Past 12 Hours) Vital Signs Temp Pulse Pulse Resp BP BP Pulse Ox 04/10/19 12:26 69 04/10/19 11:28 36.8 C 62 16 123/57 L 93 04/10/19 07:11 37 C 68 16 167/63 H 96 04/10/19 06:22 163/65 H 04/10/19 03:25 36.4 C L 51 L 18 113/57 L 91
--- NOTE | 2019-04-10 14:34 | Hospitalist Progress Note ---
Date of Service April 10, 2019 Assessment & Plan (1) Abdominal pain: (2) Splenic infarct: Splenic infarct Left lower quadrant abdominal pain CT ABD:Probable splenic infarct occupying 40% of the mid and upper pole left splenic volume. Moderate atrophy left kidney. Mild nonobstructive ileus. Small bilateral pleural effusion H/O Right LE DVT many years ago--was on coumadin in the past Venous Doppler:No evidence of deep venous thrombosis. Portal venous duplex neg for VTE in portal, splenic veins ECHO:Showed mod dil LA, EF 55-60, severe mitral annular calcification, moderate to severe MR, mobile echodensity on ant mitral leaflet likely ruptured chord Discussed LUCRECIA findings with Dr German. No thrombus found. Mobile echodensity likely ruptured chord noted on TTE not seen likely artifactual per reported--as per prior hospitalist Patient not interested in any surgical procedures Started on IV Heparin-- discontinued Monitor INR:3.0 Hold Coumadin today Appreciate surgery, cardiology, Palliative care input Plan is to eventually to transition to hospice as outpatient Abdominal pain improved Possible Pneumonia Leukocytosis--Resolved CXR:Bilateral pleural effusions with persistent bibasilar consolidative opacities. Urine Cx: Negative Elevated Procalcitonin Continue Doxycycline Day # 6/7 Constipation Continue bowel regimen Encouraged to ambulate (3) Hypertension: Continue amlodipine, Coreg, clonidine and hydralazine Monitor (4) DM type 2 (diabetes mellitus, type 2): A1c is 7.1 Reports she is not on any antidiabetic at home Carb controlled diet (5) Pulmonary edema: (6) Acute on chronic diastolic heart failure: Acute on chronic diastolic heart failure Hypoxia Monitor volume status Continue IV Lasix as per Cardiology Wean off of supplemental oxygen as able May need 2 step prior to discharge (7) DVT prophylaxis: on Coumadin Code Status DNI/DNR Disposition PT/OT: recommends return Home Plan to discharge once off of IV diuretics May need 2 step prior to discharge Subjective Patient is seen and examined at bedside Reports constipation Eager to get discharged Denies any chest pain, shortness of breath, dizziness Still on IV diuretics Review of Systems Review of Systems: All systems reviewed & are unremarkable except as noted in HPI & below Physical Exam Physical Exam: Physical Exam: Vitals signs as noted above General Appearance:Moderately built and nourished, no apparent distress Head: normocephalic, Atraumatic Eyes: normal inspection, EOMI Neck: supple, Trachea midline Respiratory/Chest: Decreased breath sounds, CTA Cardiovascular: S1, S2, + murmur Abdomen/GI:Soft, non tender, Bowel sounds present Extremities/Musculoskelatal:normal inspection, no edema Neurologic/Psych:AAOX3, grossly no focal neurological deficits Skin: normal color, warm Results & Data Vital Signs (Past 12 Hours) Vital Signs Temp Pulse Pulse Resp BP BP Pulse Ox 04/10/19 12:26 69 04/10/19 11:28 36.8 C 62 16 123/57 L 93 04/10/19 07:11 37 C 68 16 167/63 H 96 04/10/19 06:22 163/65 H 04/10/19 03:25 36.4 C L 51 L 18 113/57 L 91 Laboratory Results Short CBC 04/10/19 Range/Units 06:54 WBC 10.06 (4.8-10.8) K/uL Hgb 11.9 L (12.0-16.0) g/dL Hct 35.9 L (37-47) % Plt Count 320 (130-400) K/uL [facility] 04/10/19 06:54 Sodium 139 Potassium 3.7 Chloride 102 Carbon Dioxide 32 BUN 22 H Creatinine 1.30 H Glucose 171 H Calcium 8.8 (1) Abdominal pain Abdominal location: unspecified location Qualified Code(s): R10.9 - Unspecified abdominal pain (2) Hypertension Hypertension type: unspecified Qualified Code(s): I10 - Essential (primary) hypertension
[2019-04-11] MEDS: HydrALAZINE TAB 50 MG TAB PO SCH ×3 (06:19→21:33)
[2019-04-11 07:49] LABS: Prothrombin Time 35.4 Seconds (9.0-12.0)
[2019-04-11 07:53] LABS: BUN Creatinine Ratio 14.9 (10-20); Calcium 8.8 mg/dl (8.5-10.1); Creatinine Clr Calc Pharmacy 22.5 ml/min; Est GFR (African American) 40.1; Est GFR (Non-African American) 34.6
[2019-04-11 07:59] LABS: INR 3.8 (0.9-1.1)
[2019-04-11] MEDS: POTASSIUM CHLORIDE 20 MEQ TABCR PO SCH ×2 (08:24→20:33)
[2019-04-11] MEDS: DOXYCYCLINE HYCLATE 100 MG CAP PO SCH ×2 (08:24→20:33)
[2019-04-11] MEDS: DOCUSATE SODIUM 100 MG CAP PO SCH ×2 (08:25→20:38)
[2019-04-11] MEDS: AMLODIPINE BESYLATE 5 MG TAB PO SCH (08:25)
[2019-04-11] MEDS: ATORVASTATIN 20 MG TAB PO SCH (08:25)
[2019-04-11] MEDS: cloNIDine HCL 0.3 MG TAB PO SCH ×2 (08:25→20:31)
[2019-04-11] MEDS: carvediloL 12.5 MG TAB PO SCH ×2 (08:25→20:33)
[2019-04-11] MEDS: FUROSEMIDE 20 MG in SYRINGE 0 ML IV SCH ×2 (10:06→17:31)
--- NOTE | 2019-04-11 14:07 | Cardiology Progress Note ---
Date of Service April 11, 2019 Assessment & Plan (1) Acute on chronic diastolic heart failure: Respiratory status and blood pressure improved. Discontinue IV Lasix. Transition to oral furosemide 20 mg daily. (2) Splenic infarct: Continue atorvastatin and coumadin for treatment of presumed atherosclerotic emboli from abdominal aorta or thrombus. INR supratherapeutic again today at 3.8. Hold warfarin. When INR falls below 3.0, recommend restarting warfarin at reduced dose, 1 mg daily. Repeat INR in a.m. Aspirin discontinued. (3) LBBB (left bundle branch block): Stable. (4) Mild aortic stenosis: (5) Mild mitral stenosis: (6) HTN (hypertension): Control of labile HTN improving. Medications titrated during hospitalization including coreg, clonidine, hydralazine and furosemide. Subjective Patient seen and examined at the bedside. Respiratory status improved. Currently not wearing supplemental oxygen. Tolerating diet medications. Participating in physical therapy. Abdominal discomfort improved. No dysrhythmias on telemetry. Review of Systems Review of Systems: All systems reviewed & are unremarkable except as noted in HPI & below Physical Exam Constitutional: + thin Respiratory: normal respiratory effort Auscultation: + breath sounds absent (Bilateral bases.) and + rales (Mid and lower lung boogie); no rhonchi and no wheezes Cardiovascular: Rate/Rhythm: regular rate Heart Sounds: + murmur (2/6 KAIN); no cardiac rub Extremities: + edema (1+ B/L pedal) Results & Data Vital Signs (Past 12 Hours) Vital Signs Temp Pulse Pulse Resp BP BP Pulse Ox 04/11/19 11:31 36.5 C 62 16 133/69 95 04/11/19 07:23 37.0 C 67 18 154/55 H 95 04/11/19 07:12 65 04/11/19 06:22 36.8 C 65 18 149/58 H 95 04/11/19 03:11 36.6 C 65 19 161/66 H 93
--- NOTE | 2019-04-11 21:29 | Hospitalist Progress Note ---
Date of Service April 11, 2019 Assessment & Plan (1) Splenic infarct: Presented with left upper quadrant abdominal pain. CT imaging demonstrated splenic infarct. [place] that a splenic infarct secondary to cardioembolic event versus embolization of atheromatous plaque. Treated with IV heparin and transition to warfarin. INR remains high-titrate warfarin dose. Continue statin for atherosclerosis. (2) Coronary artery disease: History of CAD, s/p [place]. No apparent acute coronary event during this hospital stay. Was taking aspirin which was discontinued due to initiation of anticoagulation. Continue carvedilol, amlodipine, and statin. (3) Acute on chronic diastolic heart failure: Chest x-ray demonstrated pulmonary edema. Echocardiogram demonstrated moderate LVH, LVEF of 55-60%, moderate to severe mitral regurgitation as discussed below, mild mitral stenosis, mild aortic stenosis, mild aortic regurgitation. Acute on chronic heart failure, probably due to combination of valvular heart disease (primarily mitral regurgitation) and left ventricular diastolic heart failure. Seen in consultation by Cardiology. Improved with IV diuretic therapy. Transition to furosemide 20 mg PO daily. (4) Mitral regurgitation: Transthoracic echocardiogram on 03/31/2019 demonstrated moderate to severe mitral regurgitation, mild mitral stenosis, mobile echodensity on the left atrial aspect of the anterior mitral valve leaflet consistent with a ruptured cordae. Suspected chordae rupture noted on transthoracic echocardiogram was not confirmed by LUCRECIA. (5) Hypertension: Continue carvedilol, amlodipine, hydralazine. (6) Hypoxia: O2 sats as low as 84%. Hypoxia probably secondary to pulmonary edema / CHF. Now oxygenating well on RA. Check 2-step pulse oximetry prior to discharge. (7) DM type 2 (diabetes mellitus, type 2): History of diabetes mellitus type 2, diet controlled. Hemoglobin A1c 7.1. Fasting blood sugars running around 170. Tight glycemic control not indicated given advanced age and comorbidities. (8) Dyslipidemia: Continue atorvastatin. (9) DVT prophylaxis: Currently receiving warfarin. Ambulate. (10) Do not resuscitate status: As noted. (11) Discharge planning issues: Anticipated discharge to her home in [place], [place]. Her daughter plans on staying with her to help take care of her. Primary care follow-up with: Petar Sargent MD phone number [phone] Cardiology follow-up with: Dr. Vishnu Elizalde affiliated with [facility], phone number [phone] Subjective Recheck for multiple problems. Patient seen in their room around 1420. Daughter at bedside. Feels better. Left upper quadrant abdominal pain improved. Less short of breath. No chest pain. Review of Systems: Constitutional- no fever. Cardiac- as noted above. Pulmonary- as noted above. GI- no nausea, vomiting, diarrhea, melena, hematochezia. - no urinary symptoms. Otherwise, as noted above. Physical Exam Constitutional: no acute distress Eyes: + anicteric sclerae Respiratory: no respiratory distress Auscultation: lungs clear to auscultation bilaterally Cardiovascular: Rate/Rhythm: regular rate and regular rhythm Heart Sounds: + murmur (II/ systolic murmur at base; III/ systolic murmur at apex); no gallop (none appreciated) Vessels: + JVD Extremities: + edema (trace); no calf tenderness Gastrointestinal (Abdomen): normal bowel sounds, soft, nontender, no hepatosplenomegaly Skin: no rashes, warm and dry Psychiatric: Orientation: alert and oriented x 3 Results & Data Vital Signs (Past 12 Hours) Vital Signs Temp Pulse Pulse Resp BP Pulse Ox 04/11/19 20:36 71 168/69 H 04/11/19 15:20 36.5 C 67 20 164/62 H 93 04/11/19 15:03 65 04/11/19 11:31 36.5 C 62 16 133/69 95 Laboratory Results Laboratory Results - last 24 hr 04/11/19 04/11/19 07:02 07:02 PT 35.4 H INR 3.8 H Sodium 137 Potassium 4.0 Chloride 101 Carbon Dioxide 32 Anion Gap 4.0 BUN 20 H Creatinine 1.37 H Est Cr Clr Drug Dosing 22.5 Est GFR ( Amer) 40.1 Est GFR (Non-Af Amer) 34.6 BUN/Creatinine Ratio 14.9 Glucose 173 H Calcium 8.8 (1) Hypertension Hypertension type: unspecified Qualified Code(s): I10 - Essential (primary) hypertension
[2019-04-12] MEDS: HydrALAZINE TAB 50 MG TAB PO SCH ×2 (06:04→13:57)
[2019-04-12] MEDS: carvediloL 12.5 MG TAB PO SCH (08:43)
[2019-04-12] MEDS: cloNIDine HCL 0.3 MG TAB PO SCH (08:43)
[2019-04-12] MEDS: POTASSIUM CHLORIDE 20 MEQ TABCR PO SCH (08:43)
[2019-04-12] MEDS: DOXYCYCLINE HYCLATE 100 MG CAP PO SCH (08:43)
[2019-04-12] MEDS: FUROSEMIDE 20 MG in SYRINGE 0 ML IV SCH (08:44)
[2019-04-12] MEDS: DOCUSATE SODIUM 100 MG CAP PO SCH (08:51)
[2019-04-12 09:27] LABS: INR 2.8 (0.9-1.1); Prothrombin Time 26.6 Seconds (9.0-12.0)
[2019-04-12 09:47] LABS: BUN Creatinine Ratio 13.1 (10-20); Est GFR (African American) 35.4; Est GFR (Non-African American) 30.5; Potassium 3.9 mmol/L (3.5-5.1)
[2019-04-12] MEDS: AMLODIPINE BESYLATE 5 MG TAB PO SCH (12:21)
[2019-04-12] MEDS: ATORVASTATIN 20 MG TAB PO SCH (12:21)
[2019-04-12] MEDS ORDERED: WARFARIN SOD 1 MG TAB PO ONE (14:30)
--- NOTE | 2019-04-12 14:44 | Hospitalist Progress Note ---
Date of Service April 12, 2019 Assessment & Plan (1) Splenic infarct: Presented with left upper quadrant abdominal pain. CT imaging demonstrated splenic infarct. [place] that a splenic infarct secondary to cardioembolic event versus embolization of atheromatous plaque. (no cardiac thrombi seen on TTE or LUCRECIA; extensive atherosclerosis of aorta seen on LUCRECIA) Treated with IV heparin and transitioned to warfarin. Continue statin for atherosclerosis. (2) Coronary artery disease: History of CAD, s/p [place]. No apparent acute coronary event during this hospital stay. Was taking aspirin which was discontinued due to initiation of anticoagulation and increased risk of bleeding with dual antithrombotic therapy. Continue carvedilol, amlodipine, and statin. (3) Acute on chronic diastolic heart failure: Chest x-ray demonstrated pulmonary edema. Echocardiogram demonstrated moderate LVH, LVEF of 55-60%, moderate to severe mitral regurgitation as discussed below, mild mitral stenosis, mild aortic stenosis, mild aortic regurgitation. Acute on chronic heart failure, probably due to combination of valvular heart disease (primarily mitral regurgitation) and left ventricular diastolic heart failure. Seen in consultation by Cardiology. Improved with IV diuretic therapy. Transition to furosemide 20 mg PO daily. Continue carvedilol. Started on hydralazine. No CRISTAL or ARB due to renal insufficiency. Received CHF instructions. (4) Mitral regurgitation: Transthoracic echocardiogram on 03/31/2019 demonstrated moderate to severe mitral regurgitation, mild mitral stenosis, mobile echodensity on the left atrial aspect of the anterior mitral valve leaflet suggesting possible ruptured cordae. Suspected chordae rupture noted on transthoracic echocardiogram was not confirmed by LUCRECIA. (5) Hypertension: Continue carvedilol, amlodipine, hydralazine. (6) Hypoxia: O2 sats as low as 84%. Hypoxia probably secondary to pulmonary edema / CHF. Hypoxia resolved; now oxygenating well on RA at rest and with ambulation. (7) CKD (chronic kidney disease), stage III: Serum creatinine 1.22 day of admission. Creatinine day of discharge 1.52. Follow. (8) DM type 2 (diabetes mellitus, type 2): History of diabetes mellitus type 2, diet controlled. Hemoglobin A1c 7.1. Fasting blood sugars ran around 130-200 Tight glycemic control not indicated given advanced age and comorbidities. (9) Dyslipidemia: Continue atorvastatin. (10) DVT prophylaxis: Received IV heparin and transitioned to warfarin. Ambulate. (11) Do not resuscitate status: As noted. (12) Discharge planning issues: Discharge to her home in [place], [place]. Her daughter plans on staying with her to help take care of her. Primary care follow-up with: Petar Sargent MD phone number [phone] Appointment next week with INR and BMP recommended. Cardiology follow-up with: Dr. Vishnu Elizalde affiliated with [facility], phone number [phone] Daughter given update on status and recommendations. Patient given copies of labs, EKG, echo reports, diagnostic imaging reports for her providers in [place]. Subjective Doing well. Abdominal pain resolved. No chest pain or SOB. Ready for discharge. Physical Exam Constitutional: no acute distress Eyes: + anicteric sclerae Respiratory: no respiratory distress Auscultation: lungs clear to auscultation bilaterally Cardiovascular: Rate/Rhythm: regular rate and regular rhythm Heart Sounds: + murmur (II/ systolic murmur at base; III/ systolic murmur at apex); no gallop (none appreciated) Vessels: + JVD Extremities: + edema (trace); no calf tenderness Gastrointestinal (Abdomen): normal bowel sounds, soft, nontender, no hepatosplenomegaly Skin: no rashes, warm and dry Psychiatric: Orientation: alert and oriented x 3 Results & Data Vital Signs (Past 12 Hours) Vital signs at 0759: Temp 36.4, pulse 64, resp 18, BP 160/63 Laboratory Results 04/10/19 06:54 04/12/19 08:49 INR 2.8 (1) Hypertension Hypertension type: unspecified Qualified Code(s): I10 - Essential (primary) hypertension
--- NOTE | 2019-04-12 15:33 | 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 Note ---
Date of Service: April 12, 2019 Laboratory Results - last 24 hr 04/12/19 04/12/19 08:49 08:49 PT 26.6 H INR 2.8 H Sodium 137 Potassium 3.9 Chloride 100 Carbon Dioxide 30 Anion Gap 6.0 BUN 20 H Creatinine 1.52 H Est Cr Clr Drug Dosing 21.0 Est GFR ( Amer) 35.4 Est GFR (Non-Af Amer) 30.5 BUN/Creatinine Ratio 13.1 Glucose 206 H Calcium 9.0
--- NOTE | 2019-04-13 05:17 | Discharge Summary ---
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 Lives with her daughter. She is currently living in [place] and sometimes come to [place]. Last time she saw her family doctor at [place] in 2016. She says currently she is following with doctors in [place] .They are visiting [place] and she is not feeling well since yesterday. Since 24 hours, she is having significant left upper quadrant abdominal pain, also some nausea. She had few episode of diarrhea yesterday. No blood in the stools. The diarrhea has improved now. Poor appetite because of pain and nausea, feeling hot and cold, no headaches. Sometimes she gets dizziness, vision is okay. Hearing is okay. Has some runny nose, no sore throat since yesterday. No difficulty swallowing, no chest pain, no shortness of breath. At home, she ambulates without any help. She has chronic swelling in the right lower extremity. No rash. Normal bladder movements. No burning micturitions, no hematuria, no blood in the stools. Currently with the pain medication, pain has improved. Resting comfortably. CAT scan unofficial report shows space splenic infarct. Principal Diagnosis splenic infarct OTHER ACUTE DIAGNOSES: acute on chronic CHF (valvular + diastolic) Discharge Data Allergies Allergy/AdvReac Type Severity Reaction Status Date / Time Penicillins Allergy Unknown UNKNOWN Unverified 03/31/19 01:31 Quinolones Allergy Unknown UNKNOWN Unverified 03/31/19 01:31 aspirin AdvReac Unknown burning in Unverified 03/31/19 01:31 stomach Consultations 03/31/19 03:36 ED Decision to Admit Stat 03/31/19 05:05 Consult Case Management - Discharge Planning Routine 03/31/19 08:00 Consult General Surgery Routine 03/31/19 15:17 Consult Cardiology Routine 04/03/19 19:28 Consult Palliative Care Routine Procedures Performed Operation Date: 04/02/19 08:00 Actual Procedures p Echo Transesophageal - Bobby German DO Ordered Studies 03/31/19 00:18 CT abd pelvis oral and IV con Urgent 03/31/19 05:05 US venous doppler LE RT Routine 03/31/19 06:33 US thyroid Routine 03/31/19 12:17 US duplex portal hepatic veins Urgent Hospital Course (1) Splenic infarct: Presented with left upper quadrant abdominal pain. CT imaging demonstrated splenic infarct. Kulm that splenic infarct could be secondary to cardioembolic event versus embolization of atheromatous plaque. (no cardiac thrombi seen on TTE or LUCRECIA; extensive atherosclerosis of aorta seen on LUCRECIA) Treated with IV heparin and transitioned to warfarin. Continue statin for atherosclerosis. (2) Coronary artery disease: History of CAD, s/p [place]. No apparent acute coronary event during this hospital stay. Was taking aspirin which was discontinued due to initiation of anticoagulation and increased risk of bleeding with dual antithrombotic therapy. Continue carvedilol, amlodipine, and statin. (3) Acute on chronic diastolic heart failure: Chest x-ray demonstrated pulmonary edema. Echocardiogram demonstrated moderate LVH, LVEF of 55-60%, moderate to severe mitral regurgitation as discussed below, mild mitral stenosis, mild aortic stenosis, mild aortic regurgitation. Acute on chronic heart failure, probably due to combination of valvular heart disease (primarily mitral regurgitation) and left ventricular diastolic heart failure. Seen in consultation by Cardiology. Improved with IV diuretic therapy. Transitioned to furosemide 20 mg PO daily. Continued carvedilol. Started on hydralazine. No CRISTAL or ARB due to renal insufficiency. Received CHF instructions. (4) Mitral regurgitation: Transthoracic echocardiogram on 03/31/2019 demonstrated moderate to severe mitral regurgitation, mild mitral stenosis, mobile echodensity on the left atrial aspect of the anterior mitral valve leaflet suggesting possible ruptured cordae. Suspected chordae rupture noted on transthoracic echocardiogram was not confirmed by LUCRECIA. (5) Hypertension: Continue carvedilol, amlodipine, hydralazine. (6) Hypoxia: O2 sats as low as 84%. Hypoxia probably secondary to pulmonary edema / CHF. Hypoxia resolved; now oxygenating well on RA at rest and with ambulation. (7) CKD (chronic kidney disease), stage III: Serum creatinine 1.22 day of admission. Creatinine day of discharge 1.52. Follow. (8) DM type 2 (diabetes mellitus, type 2): History of diabetes mellitus type 2, diet controlled. Hemoglobin A1c 7.1. Fasting blood sugars ran around 130-200 Tight glycemic control not indicated given advanced age and comorbidities. (9) Dyslipidemia: Continue atorvastatin. (10) DVT prophylaxis: Received IV heparin and transitioned to warfarin. Ambulate. (11) Do not resuscitate status: As noted. (12) Discharge planning issues: Discharged to her home in [place], [place]. Her daughter plans on staying with her to help take care of her. Primary care follow-up with: Petar Sargent MD phone number [phone] Appointment next week with INR and BMP recommended. Cardiology follow-up with: Dr. Vishnu Elizalde affiliated with [facility], phone number [phone] Daughter given update on status and recommendations. Patient given copies of labs, EKG, echo reports, diagnostic imaging reports for her providers in [place]. Total Time Total Time Spent Total Time Spent (In Minutes): 50 Discharge Plan Discharge Items Patient Disposition: Home - Self-Care Reason For Visit: ABDOMINAL PAIN Discharge Diagnosis: splenic infarct congestive heart failure (fluid in lungs) heart murmurs (mild mitral stenosis, moderate-severe mitral regurgitation, mild aortic stenosis, moderate aortic regurgitation) Condition on Discharge: Fair Activity: As commented below Activity Comment: Gradually increase activity. Rest if tired or short of breath. Use walker. Non-emergency contact: Primary Care Provider, Hospitalist and Store Protection Specialist Call non-emergency contact if: you have any medication questions, your symptoms worsen and your temperature is above 101 Diet: Heart Healthy Addtl Attending Provider Instructions: MEDICATION CHANGES: Blood thinner called warfarin (Coumadin) was started because of splenic infarct. Initial dose is 1 mg daily. It needs to be monitored with a blood test called an INR. Dr. Sargent can make arrangements for you. Taking aspirin with warfarin (Coumadin) increases risk of bleeding. Please stop taking aspirin. Hydralazine (Apresoline) treats high blood pressure and congestive heart failure. Take 100 mg 3 times a day. Furosemide (Lasix) is a diuretic. Take 20 mg each morning. Potassium chloride replaces potassium that your body loses when taking diuretics like furosemide. Take 10 mEq twice a day. Atorvastatin (Lipitor) lowers cholesterol and helps treat hardening of the arteries. Take 20 mg daily. SUMMARY OF TEST RESULTS: CT scan showed spot in spleen (splenic infarct). This may have been due to a blood clot from heart chambers or from cholesterol from aorta. Echocardiogram showed that heart muscle is strong, but thicker than usual and probably stiff. You have several heart murmurs- most significant one is moderate-severe mitral regurgitation. INR day of discharge was 2.8. (good range is usually between 2 and 3). RECOMMENDATIONS FOR FOLLOW-UP: Please make appointment to see Dr. Sargent early next week. He should check INR and basic metabolic profile. Please make appointment to see Dr. Saucedo when convenient. INSTRUCTIONS FOR CONGESTIVE HEART FAILURE Call 911 and go to the Emergency Room if: * You have tightness or pain in your chest that does not go away with rest or Nitroglycerin * You are very short of breath even with rest Call your doctor if any of the following symptoms or problems start or get worse: * Shortness of breath or difficulty breathing * Wake up at night short of breath * Chest pain * Cough * Swelling of your hands, fee, or legs * More fatigued or tired with your normal activity * Palpitations - sudden fast heart beats WEIGHT * Weigh yourself every morning after using the bathroom. * Use the same scale. * Wear the same amount of clothing. * Write your weight down on your chart. * Call your doctor if you gain more than 2-3 pounds in 1-2 days. MEDICATIONS * Use this discharge instruction sheet for instructions. * Take your medications at the time your doctor ordered. * Do not skip a dose of your medicines. * If you miss a dose of medicine, take as soon as possible, but DO NOT DOUBLE A DOSE. * Read your medicine information when you get home. * Know all of the side effects of your medicine. * Call your doctor's office if you have any side effects. * Be sure all of your doctors know what medicine and herbs you take (including cold, flu, and herbal medicine). * Pain Medicine: If you do not get relief from your pain, please call your doctor for help. Take the following with you to your follow-up doctor appointments: * Weight Chart * Medication List * List of questions Do not drink excessive alcohol, beer or wine. OTHER INSTRUCTIONS: Seek medical attention if you have: * temperature above 101 * chest pain or trouble breathing * abdominal pain, nausea, vomiting * diarrhea, dark stools or bloody stools * any unanswered questions or concerns Call 911 if symptoms are severe. Please take good care of yourself. Call if you have any questions or problems. You can reach a [facility] hospitalist on duty at [facility] 24 hours a day by calling [phone]. My cell # is [phone]. Pending Studies at Discharge: No Stand-Alone Forms: My [facility], Smoking Cessation Medications and DC Order Prescriptions: New atorvastatin 20 mg Tablet 20 mg PO QAM Qty: 30 RF: 1 furosemide 20 mg tablet 20 mg PO DAILY Qty: 30 RF: 1 potassium chloride 10 mEq capsule, extended release 10 meq PO BID Qty: 60 RF: 1 warfarin 1 mg tablet 1 mg PO DAILY Qty: 30 RF: 1 hydralazine 100 mg tablet 100 mg PO TID Qty: 90 RF: 1 Continued carvedilol 12.5 mg Tablet 12.5 mg PO BID RF: 0 clonidine HCl 0.3 mg Tablet 0.3 mg PO BID RF: 0 amlodipine 10 mg Tablet 10 mg PO DAILY RF: 0 Discontinued aspirin [Aspir-81] 81 mg Tablet,Delayed Release (Dr/Ec) 81 mg PO DAILY RF: 0 Discharge Orders: Discharge Order (Routine); Ordered 04/12/19 Ordered By: Galileo Sanz/Other Patient Handouts: Hyperglycemia, Diabetes Type 2 Coping, Diabetes Healthy Meals Admission Data Admit Date/Time: 03/31/19 04:10 Attending Provider: Galileo Bhagat Admit Provider: Rolando Barry Primary Care Provider: PCP,NO Other Providers: Rolando Barry ; Anthony Soto ; Laura Prieto ; Trevor Tidwell ; Tangela Blackburn ; Manan Dias ; Gopal Land ; Lexie Gu ; Royal Gil ; Angie Galvan ; Rafael Eaton Jr ; Sadia Hollis ; Jasmine Jones ; Bobby German ; Tolu Lagunas Other Interventions: Discharge Summary Assessment (RN) Last Done: 04/12/19 13:53 DC Date/Time DO NOT enter until pt leaves facility: 04/12/19 17:10
--- NOTE | 2019-04-13 09:07 | 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 Note ---
Date of Service: April 13, [address] Sargent given update by phone. DC summary faxed to his office, as well as Dr. Avalos.
== END 2019-04-12 17:10 | disposition home or self-care (01) | DRG 814 ==
LOC: ED 00:02 → SUATTDRO 04:10 → 2W 04:10

== ENCOUNTER 2020-09-06 10:32 | Inpatient (IN) ==
--- NOTE | 2020-09-06 11:06 | Emergency Department Note ---
Impression & Plan HODGE (dyspnea on exertion), CHF exacerbation, Hypokalemia ED Provider Note Provider: Claus Gomez MD DATE OF SERVICE: 09/06/2020 CHIEF COMPLAINT: Lab abnormalities, dyspnea on exertion HISTORY OF PRESENT ILLNESS: Patient is a 89-year-old female with a history of CKD, aortic and mitral stenosis, CAD, CHF with recent hospitalization last week deoxy presenting today referred by her outpatient doctors office. Patient reports that she been doing fairly well since coming home but has noted oc casional little bit of chest discomfort hence more shortness of breath particularly with walking. Intermittently uses 2 L of oxygen at home states this does help some. Denies significant leg swelling or fevers. No sick contacts reported. No falls or syncope reported. Daughter present reports that her mother established with primary care doctor and had some basic blood work 2 days ago. She states the were called with results today and told that she was having kidney failure and was in heart failure and should come to the hospital. Patient reportedly has been taking her home medications including Eliquis. Patient states has been urinating okay and drinking fluids okay but not eating the best. Patient denies any abdominal discomfort. Daughter reports the patient been taking 40 mg of Lasix daily. REVIEW OF SYSTEMS: A total of 10 review of systems was obtained and negative except as stated above in the HPI. PAST MEDICAL HISTORY: As noted above MEDICATIONS: Reviewed home medication list SOCIAL HISTORY: Lives with daughter, former smoker PHYSICAL EXAM: GENERAL: alert and oriented in no acute distress on stretcher Head: normocephalic and atraumatic EYES: No injection, discharge or icterus. NECK: Trachea midline. ENT: Mucous membranes pink and moist. LUNGS: Airway patent. No retractions. Breath sounds clear with diminished bases. HEART: Regular rate and rhythm. No chest wall tenderness ABDOMEN: Soft and non-tender, without guarding or rebound. SKIN: Acyanotic, warm, dry, without rashes EXTREMITIES: 2+ right lower extremity swelling 1+ left lower extremity swelling. No significant tenderness of lower extremities. NEUROLOGICAL: No focal deficits. No aphasia. No facial droop or slurred speech. EK bpm normal sinus rhythm. No PVC or PAC. Left bundle branch block is noted with a left axis and compared to previous from April 03, 2019 no significant changes noted. CONTINUOUS CARDIAC MONITORING: was ordered and showed a heart rate of 70s and 80s bpm in normal sinus rhythm with left bundle branch block. Patient's laboratory studies and imaging reviewed. Differential includes Infection, dehydration, metabolic abnormality, hypo/hyperglycemia, electrolyte disturbance, anemia, hypoxia, cardiac sources, intracerebral event, toxicologic, neurologic, as well as other pathologies. IMPRESSION/MEDICAL DECISION MAKING: Patient presents for for due to laboratory abnormalities per the report complaining of little bit of chest discomfort and little bit of shortness of breath particular with movement. Recently hospitalized per the daughter in [facility] for pulmonary edema. Daughter also states that the time she had some intermittent arm tremors. Reports these were not described as seizures on EEG testing there. Patient is awake and alert here. No falls reported or trauma appreciated. Chest x-ray shows some pulmonary edema findings. Patient not significant hypoxic and feels dyspneic on room air. Some baseline leg swellings appreciated on exam the patient is anticoagulated. Low suspicion at this time for DVT or PE given the Eliquis use. Patient not on diuretics at this time. BNP is significantly elevated and question of there is some component of heart failure to this. Troponin is not elevated and lower suspicion for ACS given her complaints. Covid testing was negative. No evidence of focal pneumonia. Some chronic baseline anemia is noted. Hypokalemia is noted today as well as some slight thyroid dysfunction. Renal function however appears near baseline with creatinine 1.49 today compared to a creatinine of 1.6 in the outpatient labs. Seems like she is at her baseline chronic kidney disease levels. Again we are missing records from recent hospitalization in [facility]. Believe she could likely benefit from some amount of diuresis. Discussed with the patient and her daughter options at this time trial of some outpatient diuresis versus moderate inpatient diuresis given her chronic kidney disease. Feel that given she developed severe short of breath even just moving off the bedpan while on the bed here further diuresis here at the hospital monitored would be preferable. Given a dose of Lasix and the hospitalist contacted. Some intravenous and oral potassium supplementation was provided. DIAGNOSIS: Dyspnea on exertion, CHF exacerbation, hypokalemia DISPOSITION: Hospitalist will evaluate Patient was agreeable with this plan. Past Med/Surg History Medical History (Updated 09/06/20 @ 14:01 by Claus Gomez M.D.) CHF due to valvular disease Coronary artery disease DM type 2 (diabetes mellitus, type 2) Do not resuscitate status Dyslipidemia Goals of care, counseling/discussion LBBB (left bundle branch block) Mild aortic stenosis Mild mitral stenosis Mitral regurgitation Surgical History (Updated 04/11/19 @ 21:09 by Galileo Bhagat MD) H/O repair of left rotator cuff H/O varicose vein stripping History of appendectomy History of hysterectomy Social History Smoking Status: Former smoker Hx Alcohol Use: No Hx Substance Use: No Preferred Language: Lithuanian 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 Ability: Effective 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 Beliefs That Will Affect Care: None marital status: / Current Living Situation: Family Current Living Situation Comment: lives w/ dtr Feels Safe at Home: Yes Assistive Devices: Walker Allergies Allergies Allergy/AdvReac Type Severity Reaction Status Date / Time Penicillins Allergy Unknown Rash Unverified 09/06/20 12:00 Quinolones Allergy Unknown Rash Unverified 09/06/20 12:00 aspirin AdvReac Unknown burning in Unverified 09/06/20 12:00 stomach Home Meds Home Medications Medication Instructions Recorded Confirmed amlodipine 10 mg PO DAILY 03/31/19 09/06/20 apixaban [Eliquis] 5 mg PO BID 09/06/20 09/06/20 clonidine HCl 0.1 mg PO BID 09/06/20 09/06/20 labetalol 100 mg PO TID 09/06/20 09/06/20 pantoprazole 40 mg PO DAILY 09/06/20 09/06/20 sennosides-docusate sodium [Senna 1 tab-cap PO BID 09/06/20 09/06/20 with Docusate Sodium] Previous Rx's Medication Instructions Recorded atorvastatin 20 mg PO QAM #30 tab 04/12/19 hydralazine 100 mg PO TID #90 tab 04/12/19 Results & Data (ED) Vital Signs Vital Signs - 24 hr 09/06/20 10:36 09/06/20 11:23 09/06/20 11:30 Temperature 36.7 C Temperature Source Temporal Artery Scan Pulse Rate 93 H 76 Pulse Rate from SpO2 Sensor 77 Pulse Rhythm Regular Pulse Strength Normal Respiratory Rate 24 22 Respiratory Effort / Characteristics Non-Labored Spontaneous Respiratory Depth Normal Respiratory Pattern Regular Blood Pressure 188/74 H Blood Pressure Mean 112 Blood Pressure Position Sitting Pulse Oximetry 97 100 Oxygen Delivery Method Room Air Nasal Cannula Oxygen Flow Rate 2 Sepsis Recent Fever Within 48 Hours No Sepsis New/Unexplained Change in Mental Status No Sepsis Action Taken by Nursing No Action Required 09/06/20 11:50 09/06/20 12:00 09/06/20 12:10 Temperature Temperature Source Pulse Rate 77 79 79 Pulse Rate from SpO2 Sensor 77 79 81 Pulse Rhythm Pulse Strength Respiratory Rate 30 H 17 20 Respiratory Effort / Characteristics Respiratory Depth Respiratory Pattern Blood Pressure Blood Pressure Mean Blood Pressure Position Pulse Oximetry 100 100 100 Oxygen Delivery Method Oxygen Flow Rate Sepsis Recent Fever Within 48 Hours Sepsis New/Unexplained Change in Mental Status Sepsis Action Taken by Nursing 09/06/20 12:58 09/06/20 13:39 Temperature Temperature Source Pulse Rate 79 Pulse Rate from SpO2 Sensor 79 Pulse Rhythm Pulse Strength Respiratory Rate 21 Respiratory Effort / Characteristics Respiratory Depth Respiratory Pattern Blood Pressure 196/81 H Blood Pressure Mean 119 Blood Pressure Position Pulse Oximetry 99 94 Oxygen Delivery Method Room Air Oxygen Flow Rate Sepsis Recent Fever Within 48 Hours Sepsis New/Unexplained Change in Mental Status Sepsis Action Taken by Nursing Laboratory Data Result diagrams: 09/06/20 11:18 09/06/20 12:08 Lab Results 09/06/20 09/06/20 09/06/20 Range/Units 11:18 11:18 11:18 WBC 9.48 (4.8-10.8) K/uL RBC 4.59 (4.2-5.4) M/uL Hgb 11.5 L (12.0-16.0) g/dL Hct 35.2 L (37-47) % MCV 76.7 L (80-100) fL MCH 25.1 (25-34) pg MCHC 32.7 (32-36) g/dL RDW Std Deviation 46.9 H (36.4-46.3) fL RDW Coeff of Dion 16.7 H (11.5-14.5) % Plt Count 361 (130-400) K/uL MPV 8.6 (7.4-10.4) fL Immature Gran % (Auto) 0.4 % Neut % (Auto) 75.6 % Lymph % (Auto) 18.7 % Lawrence % (Auto) 3.2 % Eos % (Auto) 1.8 % Baso % (Auto) 0.3 % Neut # (Auto) 7.17 H (1.4-6.5) K/uL Lymph # (Auto) 1.77 (1.2-3.4) K/uL Lawrence # (Auto) 0.30 (0.11-0.59) K/uL Eos # (Auto) 0.17 (0-0.5) K/uL Baso # (Auto) 0.03 (0-0.2) K/uL Immature Gran # (Auto) 0.04 H (0.00-0.02) K/uL PT Cancelled INR Cancelled APTT (21.0-31.0) Seconds PTT Ratio Sodium 138 (136-145) mmol/L Potassium (3.5-5.1) mmol/L Chloride 104 (98-107) mmol/L Carbon Dioxide 28 (21-32) mmol/L Anion Gap 6.0 (3-11) BUN 27 H (7-18) mg/dl Creatinine 1.49 H (0.6-1.2) mg/dl Est Cr Clr Drug Dosing 22.4 ml/min Est GFR ( Amer) 36.0 Est GFR (Non-Af Amer) 31.0 BUN/Creatinine Ratio 18.2 (10-20) Glucose 140 H (70-99) mg/dl Calcium 9.2 (8.5-10.1) mg/dl Magnesium (1.8-2.4) mg/dl Total Bilirubin 0.6 (0.2-1) mg/dl AST (15-37) U/L ALT 17 (12-78) U/L Alkaline Phosphatase 174 H (45-117) U/L Troponin I 0.015 (0-0.045) ng/ml NT-Pro-B Natriuret Pep 7014 H (0-1800) pg/ml Total Protein 7.3 (6.4-8.2) gm/dl Albumin 3.6 (3.4-5.0) gm/dl Globulin 3.7 (2.5-4.0) gm/dl Albumin/Globulin Ratio 1.0 (0.9-2) TSH 0.161 L (0.300-4.500) uIu/ml Free T4 1.73 H (0.8-1.6) ng/dl COVID-19 Eval Order SARS-CoV-2 (PCR) (Negative) Influenza Type A (PCR) (Neg) Influenza Type B (PCR) (Neg) RSV (RT-PCR) (Neg) 09/06/20 09/06/20 09/06/20 Range/Units 11:20 11:20 12:08 WBC (4.8-10.8) K/uL RBC (4.2-5.4) M/uL Hgb (12.0-16.0) g/dL Hct (37-47) % MCV (80-100) fL MCH (25-34) pg MCHC (32-36) g/dL RDW Std Deviation (36.4-46.3) fL RDW Coeff of Dion (11.5-14.5) % Plt Count (130-400) K/uL MPV (7.4-10.4) fL Immature Gran % (Auto) % Neut % (Auto) % Lymph % (Auto) % Lawrence % (Auto) % Eos % (Auto) % Baso % (Auto) % Neut # (Auto) (1.4-6.5) K/uL Lymph # (Auto) (1.2-3.4) K/uL Lawrence # (Auto) (0.11-0.59) K/uL Eos # (Auto) (0-0.5) K/uL Baso # (Auto) (0-0.2) K/uL Immature Gran # (Auto) (0.00-0.02) K/uL PT 10.4 INR 1.0 APTT 28.5 (21.0-31.0) Seconds PTT Ratio 1.1 Sodium (136-145) mmol/L Potassium (3.5-5.1) mmol/L Chloride (98-107) mmol/L Carbon Dioxide (21-32) mmol/L Anion Gap (3-11) BUN (7-18) mg/dl Creatinine (0.6-1.2) mg/dl Est Cr Clr Drug Dosing ml/min Est GFR ( Amer) Est GFR (Non-Af Amer) BUN/Creatinine Ratio (10-20) Glucose (70-99) mg/dl Calcium (8.5-10.1) mg/dl Magnesium (1.8-2.4) mg/dl Total Bilirubin (0.2-1) mg/dl AST (15-37) U/L ALT (12-78) U/L Alkaline Phosphatase (45-117) U/L Troponin I (0-0.045) ng/ml NT-Pro-B Natriuret Pep (0-1800) pg/ml Total Protein (6.4-8.2) gm/dl Albumin (3.4-5.0) gm/dl Globulin (2.5-4.0) gm/dl Albumin/Globulin Ratio (0.9-2) TSH (0.300-4.500) uIu/ml Free T4 (0.8-1.6) ng/dl COVID-19 Eval Order CovFluRsv at [facility] SARS-CoV-2 (PCR) NEGATIVE (Negative) Influenza Type A (PCR) Negative (Neg) Influenza Type B (PCR) Negative (Neg) RSV (RT-PCR) Negative (Neg) 09/06/20 Range/Units 12:08 WBC (4.8-10.8) K/uL RBC (4.2-5.4) M/uL Hgb (12.0-16.0) g/dL Hct (37-47) % MCV (80-100) fL MCH (25-34) pg MCHC (32-36) g/dL RDW Std Deviation (36.4-46.3) fL RDW Coeff of Dion (11.5-14.5) % Plt Count (130-400) K/uL MPV (7.4-10.4) fL Immature Gran % (Auto) % Neut % (Auto) % Lymph % (Auto) % Lawrence % (Auto) % Eos % (Auto) % Baso % (Auto) % Neut # (Auto) (1.4-6.5) K/uL Lymph # (Auto) (1.2-3.4) K/uL Lawrence # (Auto) (0.11-0.59) K/uL Eos # (Auto) (0-0.5) K/uL Baso # (Auto) (0-0.2) K/uL Immature Gran # (Auto) (0.00-0.02) K/uL PT INR APTT (21.0-31.0) Seconds PTT Ratio Sodium (136-145) mmol/L Potassium 3.0 L (3.5-5.1) mmol/L Chloride (98-107) mmol/L Carbon Dioxide (21-32) mmol/L Anion Gap (3-11) BUN (7-18) mg/dl Creatinine (0.6-1.2) mg/dl Est Cr Clr Drug Dosing ml/min Est GFR ( Amer) Est GFR (Non-Af Amer) BUN/Creatinine Ratio (10-20) Glucose (70-99) mg/dl Calcium (8.5-10.1) mg/dl Magnesium 2.7 H (1.8-2.4) mg/dl Total Bilirubin (0.2-1) mg/dl AST 13 L (15-37) U/L ALT (12-78) U/L Alkaline Phosphatase (45-117) U/L Troponin I (0-0.045) ng/ml NT-Pro-B Natriuret Pep (0-1800) pg/ml Total Protein (6.4-8.2) gm/dl Albumin (3.4-5.0) gm/dl Globulin (2.5-4.0) gm/dl Albumin/Globulin Ratio (0.9-2) TSH (0.300-4.500) uIu/ml Free T4 (0.8-1.6) ng/dl COVID-19 Eval Order SARS-CoV-2 (PCR) (Negative) Influenza Type A (PCR) (Neg) Influenza Type B (PCR) (Neg) RSV (RT-PCR) (Neg) Administered Medications Discontinued Medications Potassium Chloride (K Kentrell / Wtr) 10 meq in 100 mls @ 100 mls/hr IV NOW STA Stop: 09/06/20 14:19 Last Admin: 09/06/20 13:48 Dose: 100 mls/hr Documented by: [id number] Potassium Chloride (Potassium Chloride Crtab 20 Meq Tabcr) 40 meq PO NOW STA Stop: 09/06/20 13:18 Last Admin: 09/06/20 13:48 Dose: 40 meq Documented by: [id number] Imaging Data Radiologist's Impression: Chest X-Ray 09/06/20 11:02 XR chest 1V portable CLINICAL HISTORY: weakness COMPARISON STUDY: Chest radiograph April 05, 2019. FINDINGS: There is no pneumothorax. There may be trace bilateral pleural effusions. Cardiomegaly is noted. There is mitral annular calcification. Mild interstitial thickening is noted. There is no lobar consolidation. Lung volumes are diminished. IMPRESSION: 1. Cardiomegaly. Interstitial thickening which favors mild pulmonary edema. 2. Suspected trace bilateral pleural effusions. 3. Low lung volumes. ACT 112: Negative or not required by law. Electronically signed by: Randall Drummond M.D. 09/06/2020 11:47 AM Discharge Plan Visit Data Chief Complaint: Chest Pain Stated Complaint: CHEST PAIN ED Provider: Claus Gomez Discharge Problem: HODGE (dyspnea on exertion), CHF exacerbation, Hypokalemia Patient Disposition: Being Evaluated by Hospitalist Forms Stand Alone Forms: [facility] Prescriptions Prescriptions: No Action amlodipine 10 mg Tablet 10 mg PO DAILY RF: 0 atorvastatin 20 mg Tablet 20 mg PO QAM Qty: 30 RF: 1 hydralazine 100 mg tablet 100 mg PO TID Qty: 90 RF: 1 clonidine HCl 0.1 mg Tablet 0.1 mg PO BID RF: 0 sennosides-docusate sodium [Senna with Docusate Sodium] 8.6-50 mg Tablet 1 tab-cap PO BID RF: 0 pantoprazole 40 mg Tablet,Delayed Release (Dr/Ec) 40 mg PO DAILY RF: 0 labetalol 100 mg Tablet 100 mg PO TID RF: 0 Eliquis 5 mg Tablet 5 mg PO BID RF: 0 Referrals Referrals: PCP,NO [Primary Care Provider] - Discharge Problem: CHF exacerbation Qualifiers: Heart failure type: unspecified Qualified Code(s): I50.9 - Heart failure, unspecified
[2020-09-06 11:32] LABS: Basophils # (auto) 0.03 K/uL (0-0.2); Basophils % (auto) 0.3 %; Eosinophils # (auto) 0.17 K/uL (0-0.5); Eosinophils % (auto) 1.8 %; Hematocrit (blood only) 35.2 % (37-47); Hemoglobin 11.5 g/dL (12.0-16.0); Immature Granulocytes # (auto) 0.04 K/uL (0.00-0.02); Immature Granulocytes % (auto) 0.4 %; Lymphocytes # (auto) 1.77 K/uL (1.2-3.4); Lymphocytes % (auto) 18.7 %; Mean Corpuscular Hemoglobin 25.1 pg (25-34); Mean Corpuscular Hgb Conc 32.7 g/dL (32-36); Mean Corpuscular Volume 76.7 fL (80-100); Mean Platelet Volume 8.6 fL (7.4-10.4); Monocytes % (auto) 3.2 %; Neutrophils # (auto) 7.17 K/uL (1.4-6.5); Neutrophils % (auto) 75.6 %; Platelet Count 361 K/uL (130-400); RDW Coefficient of Variation 16.7 % (11.5-14.5); RDW Standard Deviation 46.9 fL (36.4-46.3); Red Blood Count 4.59 M/uL (4.2-5.4); White Blood Count 9.48 K/uL (4.8-10.8)
--- NOTE | 2020-09-06 11:48 | XRay Report ---
XR chest 1V portable CLINICAL HISTORY: weakness COMPARISON STUDY: Chest radiograph April 05, 2019. FINDINGS: There is no pneumothorax. There may be trace bilateral pleural effusions. Cardiomegaly is n oted. There is mitral annular calcification. Mild interstitial thickening is noted. There is no lobar consolidation. Lung volumes are diminished. IMPRESSION: 1. Cardiomegaly. Interstitial thickening which favors mild pulmonary edema. 2. Suspected trace bilateral pleural effusions. 3. Low lung volumes. ACT 112: Negative or not required by law. Electronically signed by: Randall Drummond M.D. 09/06/2020 11:47 AM
[2020-09-06 11:54] LABS: Albumin Level 3.6 gm/dl (3.4-5.0); BUN Creatinine Ratio 18.2 (10-20); Calcium 9.2 mg/dl (8.5-10.1); Creatinine Clr Calc Pharmacy 22.4 ml/min
[2020-09-06 12:16] LABS: Influenza A virus by PCR Negative (Neg); Influenza B virus by PCR Negative (Neg); RSV by PCR Negative (Neg); SARS CoV2 RNA(COVID-19) InHosp NEGATIVE (Negative)
[2020-09-06 12:19] LABS: Bilirubin,Total 0.6 mg/dl (0.2-1); Globulin 3.7 gm/dl (2.5-4.0); Thyroid Stimulating Hormone 0.161 uIu/ml (0.300-4.500); Total Protein 7.3 gm/dl (6.4-8.2); Troponin I 0.015 ng/ml (0-0.045)
[2020-09-06 12:32] LABS: Partial Thromboplastin Ratio 1.1; Partial Thromboplastin Time 28.5 Seconds (21.0-31.0); Prothrombin Time 10.4 Seconds (9.0-12.0)
[2020-09-06 12:38] LABS: Magnesium 2.7 mg/dl (1.8-2.4)
[2020-09-06 12:39] LABS: T4 Free Thyroxine 1.73 ng/dl (0.8-1.6)
[2020-09-06] MEDS ORDERED: POTASSIUM CHLORIDE CRTAB 20 MEQ TABCR PO STA ×2 (13:17→20:07)
[2020-09-06] MEDS ORDERED: POTASSIUM CHLORIDE / WTR 10 MEQ/100 ML PLCT IV STA (13:20)
[2020-09-06] MEDS ORDERED: FUROSEMIDE 40 MG/4 ML VIAL IV STA (13:57)
[2020-09-06] MEDS ORDERED: POLYETHYLENE (MIRALAX) 17 GM PACK PO PRN (14:40)
[2020-09-06] MEDS ORDERED: ACETAMINOPHEN 325 MG TAB PO PRN (14:40)
--- NOTE | 2020-09-06 14:54 | History & Physical Report ---
Date of Service September 06, 2020 Assessment & Plan (1) Acute on chronic diastolic (congestive) heart failure: Previously admitted for CHF due to diastolic/valvular dysfunction Reviewing past hospitalization in [place], cannot see more current echo, will try to obtain full records Patient had LUCRECIA done in April 2019 here, at that time showed severe diffuse nonmobile atheromatous disease visualized in the descending thoracic aorta. Inter atrial septum intact with no evidence for ASD. No left atrial mass or thrombus visualized. No thrombus detected in the left atrial appendage. Mild mitral stenosis with a mean gradient of 6.8 mmHg. Moderate to severe mitral regurg present with eccentric jet that impinges on the interatrial septum and posterior left atrial wall. Mild valvular aortic stenosis. Moderate aortic regurg present. Recently hospitalized in [place] for" pulmonary edema" per patient's daughter, records to be obtained at home patient is on 40 mg of Lasix daily Current proBNP elevated at 7000, chest x-ray showing interstitial thickening mild pulmonary edema and trace bilateral pleural effusions Received 40 IV Lasix in the ED Monitor I/Os, low sodium diet, fluid restriction Continue to closely monitor, eval in the morning for need of IV diuretics Cardiology consulted HTN -Per records from hospitalization in [place] in September, patient presented with hypertensive emergency -This was believed to be due to renal artery stenosis -CTA showed at the time marked atherosclerotic disease with extensive plaque in the abdominal aorta, atrophic left kidney and 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 Coreg was held during that admission. -cont. 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 for which patient was to follow-up as outpatient with vascular surgery, it is not clear at this time if this was done or not as patient was also then referred to hospice, will need further records to clarify (2) HODGE (dyspnea on exertion): (3) Hypokalemia: Patient presents with potassium 3.0 we will replace, continue to monitor, especially in the setting of diuresis -At home takes 40 mg daily per patient's daughter -Given 40 IV Lasix in the ED, will recheck BMP this evening and in the morning (4) CKD (chronic kidney disease), stage III: - Current creatinine 1.5 (does not seem to be too off from baseline) - continue to monitor - Try to avoid nephrotoxic agents DM type 2 -Not clear if patient is still on Metformin, Metformin was on her previous medication list - will obtain HbA1c -We will continue to monitor blood sugar levels while in the hospital DVT ppx: pt is on Eliquis Code: DNR/DNI - discussed wit the pt and daughter at the bedside History of Present Illness Chief Complaint: shortness of breath Primary Care Provider: NO PCP Patient is an 89-year-old female, with history of CHF/diastolic/valvular, posterior mitral annular calcification, hypertension, history of splenic infarction, CAD, DM type II, who presents with shortness of breath. Patient was seen by PCP on September 04, when she went to [facility]. At that time she presented with her daughter, and they discussed her recent hospitalization. Patient was hospitalized about 1 week ago in [place]. Reportedly this was due to pulmonary edema. PCP did not have discharge summary or any records from that hospital stay and currently we do not have that access either. Patient's daughter brought some records from previous hospitalizations however not from the last one. Patient was in the past hospitalized here as well in 2019, at that time was t reated for CHF, and splenic infarcts. Patient was also in hospice care in the meantime, and seems like she was discharged from hospice. Per daughter, during last hospitalization patient had EEG because she has jerking movements and walks towards one side, she was told this was due to old stroke. Patient's daughter also reports possibly ureteral stent placement. She is supposed to review records and bring them to the hospital. Patient's daughter also reports that patient often does not take her medications in the evening. However she is not sure 100% about her medications. She gave different med list to the pharmacist and different medication list to me. Pt's daughter is supposed to go home and review her meds and hopefully find also her medical records from last hospital stay and bring them here. Lastly patient has chronic right lower extremity edema, this seems to be from prior surgery in the past, per daughter this seems to be essentially unchanged. When patient was seen by PCP, she was further referred for palliative consult, pulmonary and neurology. She also had blood work done and BNP obtained. BNP was elevated and patient was advised to present to the hospital. Currently patient says that she feels better, and is breathing easier. Allergies Allergy/AdvReac Type Severity Reaction Status Date / Time Penicillins Allergy Unknown Rash Unverified 09/06/20 12:00 Quinolones Allergy Unknown Rash Unverified 09/06/20 12:00 aspirin AdvReac Unknown burning in Unverified 09/06/20 12:00 stomach Home Medications Medication Instructions Recorded Confirmed Type amlodipine 10 mg PO DAILY 03/31/19 09/06/20 History atorvastatin 20 mg PO QAM #30 tab 04/12/19 09/06/20 Rx hydralazine 100 mg PO TID #90 tab 04/12/19 09/06/20 Rx apixaban [Eliquis] 5 mg PO BID 09/06/20 09/06/20 History clonidine HCl 0.1 mg PO BID 09/06/20 09/06/20 History labetalol 100 mg PO TID 09/06/20 09/06/20 History pantoprazole 40 mg PO DAILY 09/06/20 09/06/20 History sennosides-docusate sodium [Senna 1 tab-cap PO BID 09/06/20 09/06/20 History with Docusate Sodium] Past Med/Surg History Medical History CHF due to valvular disease Coronary artery disease DM type 2 (diabetes mellitus, type 2) Do not resuscitate status Dyslipidemia Goals of care, counseling/discussion LBBB (left bundle branch block) Mild aortic stenosis Mild mitral stenosis Mitral regurgitation Surgical History H/O repair of left rotator cuff H/O varicose vein stripping History of appendectomy History of hysterectomy Social History Smoking Status: Former smoker Hx Alcohol Use: No Hx Substance Use: No Preferred Language: Irish 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 Ability: Effective Hogshead [employer] Required: No Beliefs That Will Affect Care: None marital status: / Current Living Situation: Family Current Living Situation Comment: lives w/ dtr Feels Safe at Home: Yes Assistive Devices: Walker Review of Systems Review of Systems: All systems reviewed & are unremarkable except as noted in HPI & below Constitutional: no fever and no chills Eyes: no problem reported Ear, Nose, Mouth, Throat: no problem reported Respiratory: + dyspnea Cardiovascular: no chest pain and no palpitations Gastrointestinal: no abdominal pain, no nausea and no vomiting Genitourinary: no dysuria Musculoskeletal: no problem reported Integumentary: no problem reported Neurologic: per daughter pt has jerking movements, was evaluated in [place] during last hospital stay Psychiatric: no problem reported Endocrine: no problem reported Hematologic / Lymphatic: no problem reported Allergy / Immunological: no problem reported Physical Exam Constitutional: WD/WN, vitals as above no acute distress Eyes: PERRL, conjunctivae normal, anicteric sclerae ENMT: external ear and nose normal, oropharynx normal Neck: trachea midline, no thyromegaly normal visual inspection Respiratory: normal respiratory effort, lungs clear to auscultation Auscultation: + crackles (+ bibasilar); no wheezes Cardiovascular: Rate/Rhythm: regular rate and regular rhythm Extremities: + edema (RLE (seems chronic)) Chest (Breasts): Chest: normal inspection of chest Gastrointestinal (Abdomen): Inspection/Auscultation: abdomen normal to ins pection and normal bowel sounds; abdomen not distended Percussion/Palpation: abdomen soft; abdomen nontender, no guarding and abdomen not rigid Musculoskeletal: Head/Neck/Chest: normocephalic and head atraumatic Skin: no rashes, warm and dry Neurologic: PERRL, EOMI, accommodation nl, no face palsy, no dysarthria moves all extremities Psychiatric: A+Ox3, euthymic affect Genitourinary: no CVA tenderness Results & Data Results & Data ([facility]) Vital Signs (Past 12 Hours) Vital Signs Temp Pulse Resp BP Pulse Ox 09/06/20 13:39 94 09/06/20 12:58 79 21 196/81 H 99 09/06/20 12:10 79 20 100 09/06/20 12:00 79 17 100 09/06/20 11:50 77 30 H 100 09/06/20 11:30 76 22 100 09/06/20 10:36 36.7 C 93 H 24 188/74 H 97 Laboratory Results 09/06/20 09/06/20 09/06/20 Range/Units 12:08 12:08 11:20 WBC (4.8-10.8) K/uL RBC (4.2-5.4) M/uL Hgb (12.0-16.0) g/dL Hct (37-47) % MCV (80-100) fL MCH (25-34) pg MCHC (32-36) g/dL RDW Std Deviation (36.4-46.3) fL RDW Coeff of Dion (11.5-14.5) % Plt Count (130-400) K/uL MPV (7.4-10.4) fL Immature Gran % (Auto) % Neut % (Auto) % Lymph % (Auto) % Freestone % (Auto) % Eos % (Auto) % Baso % (Auto) % Neut # (Auto) (1.4-6.5) K/uL Lymph # (Auto) (1.2-3.4) K/uL Freestone # (Auto) (0.11-0.59) K/uL Eos # (Auto) (0-0.5) K/uL Baso # (Auto) (0-0.2) K/uL Immature Gran # (Auto) (0.00-0.02) K/uL PT 10.4 INR 1.0 APTT 28.5 (21.0-31.0) Seconds PTT Ratio 1.1 Sodium (136-145) mmol/L Potassium 3.0 L (3.5-5.1) mmol/L Chloride (98-107) mmol/L Carbon Dioxide (21-32) mmol/L Anion Gap (3-11) BUN (7-18) mg/dl Creatinine (0.6-1.2) mg/dl Est Cr Clr Drug Dosing ml/min Est GFR ( Amer) Est GFR (Non-Af Amer) BUN/Creatinine Ratio (10-20) Glucose (70-99) mg/dl Calcium (8.5-10.1) mg/dl Magnesium 2.7 H (1.8-2.4) mg/dl Total Bilirubin (0.2-1) mg/dl AST 13 L (15-37) U/L ALT (12-78) U/L Alkaline Phosphatase (45-117) U/L Troponin I (0-0.045) ng/ml NT-Pro-B Natriuret Pep (0-1800) pg/ml Total Protein (6.4-8.2) gm/dl Albumin (3.4-5.0) gm/dl Globulin (2.5-4.0) gm/dl Albumin/Globulin Ratio (0.9-2) TSH (0.300-4.500) uIu/ml Free T4 (0.8-1.6) ng/dl COVID-19 Eval Order SARS-CoV-2 (PCR) NEGATIVE (Negative) Influenza Type A (PCR) Negative (Neg) Influenza Type B (PCR) Negative (Neg) RSV (RT-PCR) Negative (Neg) 09/06/20 09/06/20 09/06/20 Range/Units 11:20 11:18 11:18 WBC (4.8-10.8) K/uL RBC (4.2-5.4) M/uL Hgb (12.0-16.0) g/dL Hct (37-47) % MCV (80-100) fL MCH (25-34) pg MCHC (32-36) g/dL RDW Std Deviation (36.4-46.3) fL RDW Coeff of Dion (11.5-14.5) % Plt Count (130-400) K/uL MPV (7.4-10.4) fL Immature Gran % (Auto) % Neut % (Auto) % Lymph % (Auto) % Freestone % (Auto) % Eos % (Auto) % Baso % (Auto) % Neut # (Auto) (1.4-6.5) K/uL Lymph # (Auto) (1.2-3.4) K/uL Freestone # (Auto) (0.11-0.59) K/uL Eos # (Auto) (0-0.5) K/uL Baso # (Auto) (0-0.2) K/uL Immature Gran # (Auto) (0.00-0.02) K/uL PT Cancelled INR Cancelled APTT (21.0-31.0) Seconds PTT Ratio Sodium 138 (136-145) mmol/L Potassium (3.5-5.1) mmol/L Chloride 104 (98-107) mmol/L Carbon Dioxide 28 (21-32) mmol/L Anion Gap 6.0 (3-11) BUN 27 H (7-18) mg/dl Creatinine 1.49 H (0.6-1.2) mg/dl Est Cr Clr Drug Dosing 22.4 ml/min Est GFR ( Amer) 36.0 Est GFR (Non-Af Amer) 31.0 BUN/Creatinine Ratio 18.2 (10-20) Glucose 140 H (70-99) mg/dl Calcium 9.2 (8.5-10.1) mg/dl Magnesium (1.8-2.4) mg/dl Total Bilirubin 0.6 (0.2-1) mg/dl AST (15-37) U/L ALT 17 (12-78) U/L Alkaline Phosphatase 174 H (45-117) U/L Troponin I 0.015 (0-0.045) ng/ml NT-Pro-B Natriuret Pep 7014 H (0-1800) pg/ml Total Protein 7.3 (6.4-8.2) gm/dl Albumin 3.6 (3.4-5.0) gm/dl Globulin 3.7 (2.5-4.0) gm/dl Albumin/Globulin Ratio 1.0 (0.9-2) TSH 0.161 L (0.300-4.500) uIu/ml Free T4 1.73 H (0.8-1.6) ng/dl COVID-19 Eval Order CovFluRsv at [facility] SARS-CoV-2 (PCR) (Negative) Influenza Type A (PCR) (Neg) Influenza Type B (PCR) (Neg) RSV (RT-PCR) (Neg) 09/06/20 Range/Units 11:18 WBC 9.48 (4.8-10.8) K/uL RBC 4.59 (4.2-5.4) M/uL Hgb 11.5 L (12.0-16.0) g/dL Hct 35.2 L (37-47) % MCV 76.7 L (80-100) fL MCH 25.1 (25-34) pg MCHC 32.7 (32-36) g/dL RDW Std Deviation 46.9 H (36.4-46.3) fL RDW Coeff of Dion 16.7 H (11.5-14.5) % Plt Count 361 (130-400) K/uL MPV 8.6 (7.4-10.4) fL Immature Gran % (Auto) 0.4 % Neut % (Auto) 75.6 % Lymph % (Auto) 18.7 % Freestone % (Auto) 3.2 % Eos % (Auto) 1.8 % Baso % (Auto) 0.3 % Neut # (Auto) 7.17 H (1.4-6.5) K/uL Lymph # (Auto) 1.77 (1.2-3.4) K/uL Freestone # (Auto) 0.30 (0.11-0.59) K/uL Eos # (Auto) 0.17 (0-0.5) K/uL Baso # (Auto) 0.03 (0-0.2) K/uL Immature Gran # (Auto) 0.04 H (0.00-0.02) K/uL PT INR APTT (21.0-31.0) Seconds PTT Ratio Sodium (136-145) mmol/L Potassium (3.5-5.1) mmol/L Chloride (98-107) mmol/L Carbon Dioxide (21-32) mmol/L Anion Gap (3-11) BUN (7-18) mg/dl Creatinine (0.6-1.2) mg/dl Est Cr Clr Drug Dosing ml/min Est GFR ( Amer) Est GFR (Non-Af Amer) BUN/Creatinine Ratio (10-20) Glucose (70-99) mg/dl Calcium (8.5-10.1) mg/dl Magnesium (1.8-2.4) mg/dl Total Bilirubin (0.2-1) mg/dl AST (15-37) U/L ALT (12-78) U/L Alkaline Phosphatase (45-117) U/L Troponin I (0-0.045) ng/ml NT-Pro-B Natriuret Pep (0-1800) pg/ml Total Protein (6.4-8.2) gm/dl Albumin (3.4-5.0) gm/dl Globulin (2.5-4.0) gm/dl Albumin/Globulin Ratio (0.9-2) TSH (0.300-4.500) uIu/ml Free T4 (0.8-1.6) ng/dl COVID-19 Eval Order SARS-CoV-2 (PCR) (Negative) Influenza Type A (PCR) (Neg) Influenza Type B (PCR) (Neg) RSV (RT-PCR) (Neg)
[2020-09-06] MEDS ORDERED: amLODIPine BESYLATE 5 MG TAB PO ONE (15:17)
[2020-09-06] MEDS ORDERED: APIXABAN 2.5 MG TAB PO ONE (15:18)
--- NOTE | 2020-09-06 15:37 | Electrocardiogram Report ---
Test Reason : Blood Pressure : / mmHG Vent. Rate : 080 BPM Atrial Rate : 080 BPM P-R Int : 152 ms QRS Dur : 166 ms QT Int : 460 ms P-R-T Axes : 041 -32 112 degrees QTc Int : 530 ms Normal sinus rhythm Possible Left atrial enlargement Left axis deviation Left bundle branch block Abnormal ECG When compared with ECG of 03-APR-2019 05:44, No significant change was found Confirmed by Alexys Goins ([id number]) on 09/06/2020 3:37:19 PM Referred By: Dakota Meléndez Confirmed By:Alexys Goins
[2020-09-06] MEDS ORDERED: hydrALAZINE TAB 50 MG TAB PO ONE (17:00)
[2020-09-06] MEDS ORDERED: oxyCODONE HCL IR 5 MG TAB (IMMEDIATE RELEASE) PO PRN (18:36)
[2020-09-06 18:48] LABS: Appearance Urine Clear (Clear); Bacteria Urine Automated Negative (Negative); Bilirubin Urine Negative (Negative); Blood Urine Negative (Negative); Cast Urine Automated 0 /lpf (0-5); Color Urine Yellow; Epithelial Cell Urine Auto 20-30 /lpf (0-5); Glucose Urine UA 1+ (Negative); Ketones Urine Negative (Negative); Leukocyte Esterase Urine Negative (Negative); Nitrite Urine Negative (Negative); Protein Urine 2+ (Negative); RBC Urine Automated 0-4 /hpf (0-4); Specific Gravity Urine 1.009 (1.000-1.030); Urobilinogen Urine Negative (Negative); WBC Urine Automated 0 /hpf (0-5)
[2020-09-06 19:06] LABS: BUN Creatinine Ratio 20.1 (10-20); Calcium 8.9 mg/dl (8.5-10.1); Creatinine Clr Calc Pharmacy 23.6 ml/min; Est GFR (African American) 38.5; Est GFR (Non-African American) 33.2; Phosphorus 3.6 mg/dl (2.5-4.9); Potassium 3.2 mmol/L (3.5-5.1)
[2020-09-06] MEDS: LIDOCAINE 5% 1 PATCH TD SCH (19:56)
[2020-09-06] MEDS: DOCUSATE SODIUM/SENNA 50/8.6MG TAB PO SCH (20:00)
[2020-09-06] MEDS ORDERED: LABETALOL HCL 100 MG TAB PO ONE (20:07)
[2020-09-06] MEDS: APIXABAN 5 MG TABLET PO SCH (20:10)
[2020-09-06] MEDS: hydrALAZINE TAB 50 MG TAB PO SCH (20:10)
[2020-09-07] MEDS: amLODIPine BESYLATE 5 MG TAB PO SCH (00:43)
[2020-09-07] MEDS ORDERED: LORazepam 0.25 MG/0.5 ML VIAL IV STA (01:08)
[2020-09-07 07:35] LABS: Hematocrit (blood only) 32.7 % (37-47); Hemoglobin 10.6 g/dL (12.0-16.0); Mean Corpuscular Hemoglobin 24.4 pg (25-34); Mean Corpuscular Hgb Conc 32.4 g/dL (32-36); Mean Corpuscular Volume 75.3 fL (80-100); Mean Platelet Volume 8.9 fL (7.4-10.4); Platelet Count 316 K/uL (130-400); RDW Coefficient of Variation 16.8 % (11.5-14.5); RDW Standard Deviation 46.3 fL (36.4-46.3); Red Blood Count 4.34 M/uL (4.2-5.4); White Blood Count 8.04 K/uL (4.8-10.8)
[2020-09-07 08:10] LABS: BUN Creatinine Ratio 19.4 (10-20); Calcium 9.3 mg/dl (8.5-10.1); Creatinine Clr Calc Pharmacy 21.4 ml/min; Est GFR (African American) 37.5; Est GFR (Non-African American) 32.3; Magnesium 2.4 mg/dl (1.8-2.4); Potassium 3.4 mmol/L (3.5-5.1)
[2020-09-07 08:13] LABS: Phosphorus 4.5 mg/dl (2.5-4.9)
[2020-09-07] MEDS ORDERED: POTASSIUM CHLORIDE PWD 20 MEQ PACK PO ONE (08:24)
[2020-09-07] MEDS ORDERED: amLODIPine BESYLATE 5 MG TAB PO SCH (09:00)
[2020-09-07] MEDS: DOCUSATE SODIUM/SENNA 50/8.6MG TAB PO SCH ×2 (09:01→20:49)
[2020-09-07] MEDS: hydrALAZINE TAB 50 MG TAB PO SCH ×3 (09:01→20:50)
[2020-09-07] MEDS: LIDOCAINE 5% 1 PATCH TD SCH (09:01)
[2020-09-07] MEDS: APIXABAN 5 MG TABLET PO SCH (09:01)
[2020-09-07] MEDS: PANTOprazole 40 MG TAB PO SCH (09:02)
[2020-09-07] MEDS ORDERED: POTASSIUM CHLORIDE CRTAB 20 MEQ TABCR PO STA (10:23)
--- NOTE | 2020-09-07 14:00 | Hospitalist Progress Note ---
Date of Service September 07, 2020 Assessment & Plan (1) Acute on chronic diastolic (congestive) heart failure: Acute on chronic diastolic heart failure H/O diastolic/valvular dysfunction CXR:Cardiomegaly. Interstitial thickening which favors mild pulmonary edema. Suspected trace bilateral pleural effusions. Low lung volumes. ECHO:pending Received IV lasix Resume p.o. lasix tomorrow Monitor volume status, I's and O's, daily weight Appreciate cardiology input Movement Disorder Unclear etiology Ongoing since 6 months as per patient Evaluated with brain imaging in [place] as per family Will Consult Neurology HTN H/O Renal artery stenosis Prior-CTA showed at the time marked atherosclerotic disease with extensive plaque in the abdominal aorta, atrophic left kidney and renal artery stenosis of the left kidney Continue amlodipine, hydralazine Patient's daughter to provide updated patient's home medication list Chronic Mesenteric Ischemia History of splenic infarct on Eiquis (2) HODGE (dyspnea on exertion): (3) Hypokalemia: Replace electrolytes as needed Normal magnesium levels (4) CKD (chronic kidney disease), stage III: Cr at baseline Monitor renal function Avoid nephrotoxic agents DM II HbA1C:pending Previously on Metformin Consider starting on insulin therapy based on HbA1c results Monitor DVT Px: Eliquis Code Status: DNR/DNI Admission and Anticipated Discharge Date Admission Date: September 06, 2020 Subjective Patient is seen and examined at bedside States having involuntary shakiness/movement problems since 6 months duration Also states having dyspnea, left-sided chest discomfort Offers no new complaints Discussed with patient's daughter over the phone Review of Systems Review of Systems: All systems reviewed & are unremarkable except as noted in HPI & below Physical Exam Physical Exam: Physical Exam: Vitals signs as noted above General Appearance:Moderately built and nourished, no apparent distress Head: normocephalic, Atraumatic Eyes: normal inspection, EOMI Neck: supple, Trachea midline Respiratory/Chest: Normal breath sounds, CTA Cardiovascular: S1, S2, No murmur Abdomen/GI:Soft, Non tender, Bowel sounds present Extremities/Musculoskeletal:normal inspection, RLE swelling edema Neurologic/Psych:AAO, grossly no focal neurological deficits, +Movement disorder Skin: normal color, warm Results & Data Results & Data ([facility]) Vital Signs (Past 12 Hours) Vital Signs Temp Pulse Resp BP Pulse Ox 09/07/20 12:12 36.3 C L 94 H 22 164/70 H 97 09/07/20 06:29 36.7 C 69 18 173/71 H 97 09/07/20 03:07 36.7 C 85 16 159/56 H 94 Laboratory Results Short CBC 09/07/20 Range/Units 06:26 WBC 8.04 (4.8-10.8) K/uL Hgb 10.6 L (12.0-16.0) g/dL Hct 32.7 L (37-47) % Plt Count 316 (130-400) K/uL BMP 09/06/20 09/07/20 18:18 06:26 Sodium 139 139 Potassium 3.2 L 3.4 L Chloride 105 106 Carbon Dioxide 27 25 BUN 28 H 28 H Creatinine 1.41 H 1.44 H Glucose 123 H 126 H Calcium 8.9 9.3 Urine 09/06/20 Range/Units 18:35 Urine Color Yellow Urine Appearance Clear (Clear) Urine pH 7.0 (4.5-7.5) Ur Specific Alice 1.009 (1.000-1.030) Urine Protein 2+ H (Negative) Urine Glucose (UA) 1+ H (Negative)
--- NOTE | 2020-09-07 15:45 | Cardiology Consultation ---
Date of Consultation September 07, 2020 Assessment & Plan (1) Acute on chronic diastolic (congestive) heart failure: Acute on chronic diastolic heart failure. Mild mitral stenosis, moderate to severe mitral regurgitation with very severe calcification of the mitral valve apparatus noted on transesophageal echocardiogram in 2019. In 2019 she is to be discharged on furosemide 20 mg daily. She certainly has substrate to be short of breath from a cardiac perspective with noted past history of diastolic dysfunction, mild mitral stenosis, and hypertension. We will start p.o. furosemide tomorrow. With regards to anticoagulation, she is in sinus rhythm. In 2019, Coumadin was recommended. She is reportedly on Eliquis 5 mg twice daily. This is not considered to be the drug of choice given her coexistent history of mitral stenosis, but since that in the [facility] scheme of things, the patient has been cared for with a palliative care approach as of recently, as per the recent outpatient note, family had requested repeat palliative care consultation. We will therefore continue Eliquis in the short-term for ease of administration, however I am going to adjust the dose to 2.5 mg twice daily given recent outpatient creatinine level of 1.6, age greater than 80 years old, and weight less than 60 kg. I have requested a transthoracic echocardiogram. Although I do not necessarily think the results would have an effect with regards to her treatment plan, I think it will be helpful in terms of reestablishing her prognosis. History of Present Illness Attending Physician: Tolu Lagunas MD History of Present Illness Lety Higuera is an 89-year-old female seen in cardiology consultation per the request of Dr. Osborne for evaluation of congestive heart failure. Patient reportedly resides both locally with family as well as in [place]. She was most recently admitted to this institution in April 2019 for acute on chronic diastolic heart failure and was discharged on oral furosemide. 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 She underwent a detailed evaluation including a transesophageal echocardiogram that revealed mild mitral stenosis with a mean diastolic gradient of 6.8 mmHg. Moderate severe mitral regurgitation was also noted. It was felt that the patient's splenic infarct was felt to likely be due to an atherosclerotic embolic event or embolic event. She was to be discharged on Coumadin in 2019. The patient had apparently recently been admitted in [facility] with shortness of breath, treated for pulmonary edema. She established with local PCP on 09/04/2020, but records including local hospital records were not available to that provider at that time. A systolic murmur is noted as well as 2+ lower extremity edema. Blood work obtained 09/04/2020 included an elevated proBNP level of 6501 PG per mL and the patient was referred for hospitalization. At the time my assessment today, no significant lower extremity edema noted. Lungs were clear. Patient very emotional, having previously declared that she wanted to go home. She had decided to stay in the hospital prior to my arrival. Allergies Allergy/AdvReac Type Severity Reaction Status Date / Time Penicillins Allergy Intermediate Rash Unverified 09/06/20 18:48 Quinolones Allergy Intermediate Rash Unverified 09/06/20 18:48 aspirin AdvReac Mild burning in Unverified 09/06/20 16:55 stomach Home Medications Medication Instructions Recorded Confirmed Type amlodipine 10 mg PO DAILY 03/31/19 09/06/20 History atorvastatin 20 mg PO QAM #30 tab 04/12/19 09/06/20 Rx hydralazine 100 mg PO TID #90 tab 04/12/19 09/06/20 Rx apixaban [Eliquis] 5 mg PO BID 09/06/20 09/06/20 History clonidine HCl 0.1 mg PO BID 09/06/20 09/06/20 History labetalol 100 mg PO TID 09/06/20 09/06/20 History pantoprazole 40 mg PO DAILY 09/06/20 09/06/20 History sennosides-docusate sodium [Senna 1 tab-cap PO BID 09/06/20 09/06/20 History with Docusate Sodium] Patient History Medical History CHF due to valvular disease Coronary artery disease DM type 2 (diabetes mellitus, type 2) Do not resuscitate status Dyslipidemia Goals of care, counseling/discussion LBBB (left bundle branch block) Mild aortic stenosis Mild mitral stenosis Mitral regurgitation Surgical History H/O repair of left rotator cuff H/O varicose vein stripping History of appendectomy History of hysterectomy Social History Smoking Status: Former smoker Hx Alcohol Use: No Hx Substance Use: No Preferred Language: Citizen Of [place] 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 Ability: Effective Dairy Nutrition Consultant Required: No Beliefs That Will Affect Care: None marital status: / Current Living Situation: Family Current Living Situation Comment: lives w/ dtr Other Information That Helps Us Care for You: No Feels Safe at Home: Yes Safety Concerns: Feels Safe At This Time Assistive Devices: Oxygen - Continuous Review of Systems Review of Systems: Comprehensive review of systems is not felt to be reliable Physical Exam Physical Exam: Temp Pulse Resp BP Pulse Ox 36.3 C L 89 22 164/70 H 97 09/07/20 12:12 09/07/20 15:48 09/07/20 12:12 09/07/20 12:12 09/07/20 12:12 Constitutional: Thin, frail Respiratory: normal respiratory effort, lungs clear to auscultation Cardiovascular: Rate/Rhythm: regular rhythm Heart Sounds: + murmur (2/6 systolic murmur) Extremities: no edema Gastrointestinal (Abdomen): normal bowel sounds, soft, nontender, no hepatosplenomegaly Neurologic: PERRL, EOMI, accommodation nl, no face palsy, no dysarthria Results & Data ([facility]) Vital Signs (Past 12 Hours) Vital Signs Temp Pulse Pulse Resp BP Pulse Ox 09/07/20 12:12 36.3 C L 94 H 22 164/70 H 97 09/07/20 08:00 81 09/07/20 06:29 36.7 C 69 18 173/71 H 97 Laboratory Results CBC 09/07/20 Range/Units 06:26 WBC 8.04 (4.8-10.8) K/uL RBC 4.34 (4.2-5.4) M/uL Hgb 10.6 L (12.0-16.0) g/dL Hct 32.7 L (37-47) % Plt Count 316 (130-400) K/uL Comprehensive Metabolic Panel 09/06/20 09/07/20 Range/Units 18:18 06:26 Sodium 139 139 (136-145) mmol/L Potassium 3.2 L 3.4 L (3.5-5.1) mmol/L Chloride 105 106 (98-107) mmol/L Carbon Dioxide 27 25 (21-32) mmol/L BUN 28 H 28 H (7-18) mg/dl Creatinine 1.41 H 1.44 H (0.6-1.2) mg/dl Glucose 123 H 126 H (70-99) mg/dl Calcium 8.9 9.3 (8.5-10.1) mg/dl Intake and Output 09/07/20 09/07/20 09/07/20 06:59 14:59 22:59 Output Total 600 / 2100 Balance -600 / -2000 Output: Urine 600 / 2100 Other: Other Intake Source SIPS Weight 59.8 kg Weight Measurement Method Built in [facility] Diagnostic Findings EKG, 09/06/2020 revealed normal sinus rhythm at 80 bpm, with left bundle branch block, unchanged compared to April,
[2020-09-07] MEDS: APIXABAN 2.5 MG TAB PO SCH (20:50)
[2020-09-07] MEDS ORDERED: MELATONIN 3 MG TAB PO PRN (22:57)
--- NOTE | 2020-09-07 23:20 | Ultrasound Report ---
ULTRASOUND BILATERAL LOWER EXTREMITY VENOUS CLINICAL HISTORY: Lower extremity edema. COMPARISON STUDY: Right lower extremity venous ultrasound dated 03/31/2019. TECHNIQUE: Real-time, grayscale, and color Doppler sonography of the deep veins of the right and left lower extremity was performed from the inguinal crease to the calf. Compression and augmentation wer e utilized. FINDINGS: There is no sonographic evidence of deep venous thrombosis identified in the right or left lower extremity. The common femoral, superficial femoral, and popliteal veins are patent and normally compressible bilaterally. The greater saphenous vein and the profunda femoris vein at the junction w ith the common femoral vein are clear in both legs. The visualized calf veins are patent bilaterally. IMPRESSION: There is no sonographic evidence of deep venous thrombosis identified in the right or lef t lower extremity. ACT 112: Negative or not required by law. Electronically signed by: Abran Chu M.D. 09/07/2020 11:18 PM
[2020-09-08] MEDS ORDERED: cloNIDine HCL 0.1 MG TAB PO ONE (05:39)
[2020-09-08 07:50] LABS: Estimated Average Glucose 146 mg/dl; Hemoglobin A1C 6.7 % (4.5-5.6)
[2020-09-08 07:57] LABS: Hematocrit (blood only) 30.6 % (37-47); Hemoglobin 9.9 g/dL (12.0-16.0); Mean Corpuscular Hemoglobin 24.4 pg (25-34); Mean Corpuscular Hgb Conc 32.4 g/dL (32-36); Mean Corpuscular Volume 75.4 fL (80-100); Mean Platelet Volume 8.6 fL (7.4-10.4); Platelet Count 298 K/uL (130-400); RDW Coefficient of Variation 17.2 % (11.5-14.5); RDW Standard Deviation 47.2 fL (36.4-46.3); Red Blood Count 4.06 M/uL (4.2-5.4); White Blood Count 8.82 K/uL (4.8-10.8)
[2020-09-08] MEDS: hydrALAZINE TAB 50 MG TAB PO SCH ×3 (08:24→21:12)
[2020-09-08] MEDS: PANTOprazole 40 MG TAB PO SCH (08:25)
[2020-09-08] MEDS: APIXABAN 2.5 MG TAB PO SCH ×2 (08:25→21:13)
[2020-09-08] MEDS: DOCUSATE SODIUM/SENNA 50/8.6MG TAB PO SCH ×2 (08:25→21:13)
[2020-09-08] MEDS: FUROSEMIDE 20 MG TAB PO SCH (08:25)
[2020-09-08] MEDS: amLODIPine BESYLATE 5 MG TAB PO SCH (08:25)
[2020-09-08] MEDS: LIDOCAINE 5% 1 PATCH TD SCH (08:26)
[2020-09-08 08:32] LABS: BUN Creatinine Ratio 18.8 (10-20); Calcium 8.4 mg/dl (8.5-10.1); Est GFR (African American) 43.2; Est GFR (Non-African American) 37.3; Potassium 3.6 mmol/L (3.5-5.1)
[2020-09-08] MEDS: POTASSIUM CHLORIDE CRTAB 20 MEQ TABCR PO ONE ×2 (09:05→09:39)
--- NOTE | 2020-09-08 14:01 | Cardiology Progress Note ---
Date of Service September 08, 2020 Assessment & Plan (1) Acute on chronic diastolic (congestive) heart failure: Acute on chronic diastolic heart failure Echo 09/08/2020 reviewed independently LVEF 55 to 60% Moderate mitral regurgitation Mild to moderate mitral stenosis Mild aortic valve stenosis Difficult to control hypertension History of splenic infarct, 2019 -[place] to be due to atheroembolic, or cardioembolic, discharged on Coumadin at that time. PLAN: With additional violent crimes detective work, Dr Lagunas, was able to obtain a list of the patient's medications from her prior providers in [place] from June,, as patient / daughter uncertain of medications and therefore , we are uncertain of her past medications. Per review of the list, she is supposed to be on the furosemide 20 mg daily that was added back yesterday. Dosing/treatment with clonidine clarified. With regards to anticoagulation. Should be discharged on Coumadin 2018. In the setting of mitral stenosis, typically the direct oral anticoagulant Eliquis the agent of choice. I would speculate that she was transitioned to this medication for ease of administration. She is in sinus rhythm, and in the past, no definite atrial fibrillation was found. It does not appear that she has had a recurrent embolic event since that 2019 hospital stay. Although I would consider an off label use, I would speculate that she was transitioned to Eliquis for mood reasons in terms of having difficulty with Coumadin. I would therefore favor that perhaps she remains on this medication, but I would reduce the dose to 2.5 mg twice daily given her age, renal function, and weight of less than 60 kg. I think the biggest barrier to her being discharged is ensuring that she is back on her prior to hospital medications so that her blood pressure is reasonably well controlled. I discussed updates with the patient's daughter by phone and also discussed the case with Dr. Lagunas. Admission and Anticipated Discharge Date Admission Date: September 06, 2020 Subjective Patient without subjective complaint. Minimal lower extremity edema. Lower extremity venous duplex negative. Telemetry reveals sinus rhythm with left bundle branch block in the 70s to 80s. Physical Exam Physical Exam: Temp Pulse Resp BP Pulse Ox 36.7 C 88 22 176/66 H 96 09/08/20 11:21 09/08/20 11:21 09/08/20 11:21 09/08/20 11:09/08/20 11:21 Constitutional: WD/WN, vitals as above Respiratory: Mildly reduced breath sounds in the bases Cardiovascular: Rate/Rhythm: regular rhythm Heart Sounds: + murmur (1/6 systolic murmur) Vessels: no JVD Extremities: + edema (Trace pedal edema) Gastrointestinal (Abdomen): normal bowel sounds, soft, nontender, no hepatosplenomegaly Neurologic: PERRL, EOMI, accommodation nl, no face palsy, no dysarthria Results & Data ([facility]) Vital Signs (Past 12 Hours) Vital Signs Temp Pulse Pulse Resp BP BP Pulse Ox 09/08/20 11:21 36.7 C 88 22 176/66 H 96 09/08/20 07:58 36.8 C 75 18 173/65 H 169/62 H 97 09/08/20 07:30 90 09/08/20 05:01 36.7 C 90 19 179/62 H 93 09/08/20 03:03 36.5 C 63 19 153/70 H 90 Laboratory Results CBC 09/08/20 Range/Units 07:27 WBC 8.82 (4.8-10.8) K/uL RBC 4.06 L (4.2-5.4) M/uL Hgb 9.9 L (12.0-16.0) g/dL Hct 30.6 L (37-47) % Plt Count 298 (130-400) K/uL Comprehensive Metabolic Panel 09/08/20 Range/Units 07:27 Sodium 140 (136-145) mmol/L Potassium 3.6 (3.5-5.1) mmol/L Chloride 109 H (98-107) mmol/L Carbon Dioxide 26 (21-32) mmol/L BUN 24 H (7-18) mg/dl Creatinine 1.28 H (0.6-1.2) mg/dl Glucose 138 H (70-99) mg/dl Calcium 8.4 L (8.5-10.1) mg/dl Intake and Output 09/07/20 09/08/20 09/08/20 22:59 06:59 14:59 Intake Total 150 / 370 Output Total 175 / 176 Balance 150 / 194 -175 / 194 Intake: Oral 150 / 370 Output: Urine 175 / 175 Other: # Unmeasured Voids 3 1 Weight 58.3 kg Weight Measurement Method Standing Scale
--- NOTE | 2020-09-08 16:33 | Hospitalist Progress Note ---
Date of Service September 08, 2020 Assessment & Plan (1) Acute on chronic diastolic (congestive) heart failure: Acute on chronic diastolic heart failure H/O diastolic/valvular dysfunction CXR:Cardiomegaly. Interstitial thickening which favors mild pulmonary edema. Suspected trace bilateral pleural effusions. Low lung volumes. ECHO: Mild concentric LVH. Basal septum is thickened and angulated consistent with sigmoid septum. Septal motion is consistent with conduction abnormality. LV wall motion normal. EF 55 to 60%. Moderate mitral regurgitation. Mild to moderate mitral stenosis. Grade 1 diastolic dysfunction. 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 Previously on Coumadin Currently on Eiquis--Likely due to ease of administration (2) HODGE (dyspnea on exertion): (3) Hypokalemia: Replace electrolytes as needed Normal magnesium levels (4) CKD (chronic kidney disease), stage III: Cr at baseline Monitor renal function Avoid nephrotoxic agents DM II HbA1C:6.7 Previously on Metformin Currently diet managed Given advanced age, No strict glycemic control Monitor DVT Px: Eliquis Code Status: DNR/DNI Disposition PT/OT prior to discharge Admission and Anticipated Discharge Date Admission Date: September 06, 2020 Subjective Patient is seen and examined at bedside States feeling much better today Denies shakiness today Also denies chest pain, dyspnea, dizziness, nausea, abdominal pain Discussed with cardiology today Offers no other complaints BP elevated Review of Systems Review of Systems: All systems reviewed & are unremarkable except as noted in HPI & below Physical Exam Physical Exam: Physical Exam: Vitals signs as noted above General Appearance:Moderately built and nourished, no apparent distress Head: normocephalic, Atraumatic Eyes: normal inspection, EOMI Neck: supple, Trachea midline Respiratory/Chest: Normal breath sounds, CTA Cardiovascular: S1, S2, No murmur Abdomen/GI:Soft, Non tender, Bowel sounds present Extremities/Musculoskeletal:normal inspection, minimal RLE edema Neurologic/Psych:AAO, grossly no focal neurological deficits, +Movement disorder Skin: normal color, warm Results & Data Results & Data ([facility]) Vital Signs (Past 12 Hours) Vital Signs Temp Pulse Pulse Resp BP BP Pulse Ox 09/08/20 15:30 36.7 C 74 20 175/58 H 172/62 H 93 09/08/20 14:55 83 09/08/20 11:21 36.7 C 88 22 176/66 H 96 09/08/20 07:58 36.8 C 75 18 173/65 H 169/62 H 97 09/08/20 07:30 90 09/08/20 05:01 36.7 C 90 19 179/62 H 93 Laboratory Results Short CBC 09/08/20 Range/Units 07:27 WBC 8.82 (4.8-10.8) K/uL Hgb 9.9 L (12.0-16.0) g/dL Hct 30.6 L (37-47) % Plt Count 298 (130-400) K/uL BMP 09/08/20 07:27 Sodium 140 Potassium 3.6 Chloride 109 H Carbon Dioxide 26 BUN 24 H Creatinine 1.28 H Glucose 138 H Calcium 8.4 L
[2020-09-08] MEDS: ISOSORBIDE DINITRATE 10 MG TAB PO SCH (16:53)
[2020-09-08] MEDS: cloNIDine HCL 0.1 MG TAB PO SCH (21:13)
--- NOTE | 2020-09-08 22:03 | Consultation Report ---
DATE OF CONSULTATION: 09/08/2020 REASON FOR CONSULTATION: Query movement disorder. HISTORY OF PRESENT ILLNESS: This patient is an 89-year-old right-handed female who provided the history. As well, I spoke to her daughter, Mrs. Young. She supplemented the history. The patient was admitted who established care on 09/04 with primary to discuss her recent hospitalization. The patient had been hospitalized in [place], details of that will follow. We do not have those available. The patient was directed to go to the Emergency Room based on an elevated BNP. The patient had a hospitalization at [facility] last week for, at least in part, abnormal movements. Her daughter reports that she has had episodic abnormal movements for the last 8 or 9 months. The frequency varies from several a day to one every several weeks. The duration is approximately 3 minutes. She and her daughter confirm that she has episodes of her arms moving back and forth like she is pulling weeds. Her legs move up and down in a bicycle motion. Her head will move side to side and up and down. Eyes are open. The patient is responsive. There is no forced head or eye deviation. This tends to occur while seated and only in her home, not when on a zoom call with friends. There is no relationship to meals. She feels fatigued thereafter, but is not confused. Otherwise, she has no tremor. She has been walking with a walker for about 9 months, tends to lose her balance easily sideways. Daughter has noted that she tends to shuffle. The patient reports a history of rheumatic fever, but no history is available at this time. She was admitted to [facility]. An MRI was said to show a small old stroke, which they hypothesized likely the reason for her gait impairment. She sounds as if she at least had 24-hour EEG monitoring, during which time she had an episode and presumably it was not thought to be seizure. She was advised to follow up with her neurologist. The patient has no family history of movement disorder, no personal history of tremor. No history of known clinical stroke. PAST MEDICAL HISTORY: Notable for congestive heart failure, ascending aortic plaque. On this admission, her BNP was 7000. She is said to have been hospitalized in [place] in 09/2020 with hypertensive emergency, thought to be related to renal artery stenosis. CTA at that time showed marked atherosclerotic disease with extensive plaque in the abdominal aorta and an atrophic left kidney and renal artery stenosis. Vascular surgery was consulted and recommended no endovascular intervention in light of an atrophic kidney, left kidney, with the risks outweighing the benefits. The patient also has known chronic mesenteric ischemia. 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 It is reported by the patient's daughter that she often does not take her medications in the evening. ALLERGIES: PENICILLIN, QUINOLONE AND ASPIRIN. HOME MEDICATIONS: Amlodipine, atorvastatin, hydralazine, Eliquis, clonidine, labetalol, pantoprazole and senna. PAST SURGICAL HISTORY: Repair of left rotator cuff, varicose vein stripping, appendectomy, hysterectomy. SOCIAL HISTORY: Former smoker, does not drink alcohol. The patient has been spending time between [place] and [place] and has now moved permanently with her daughter to [place]. LABORATORY DATA: Notable for H and H of 10.6/32.7, platelet count 316. Potassium 3.2, BUN and creatinine 28/1.4, glucose 126. Hemoglobin A1c 6.7, magnesium 2.7, AST 13. Urinalysis; 2+ protein, 1+ glucose, 20-30 epithelial cells. Venous Doppler of the lower extremities; no evidence of DVT. Electrocardiogram: Normal sinus rhythm, possible left atrial enlargement, left axis deviation, left bundle branch block, abnormal EKG. Echocardiogram: Mild concentric left ventricular hypertrophy, basal septum is thickened and angulated consistent with a sigmoid septum. Septal motion is consistent with conduction abnormality, EF 55%-60%, moderate mitral regurgitation, mild to moderate mitral stenosis. PHYSICAL EXAMINATION: The patient is awake and alert. Speech and language are normal and her affect is appropriate. There are no carotid bruits. No heart murmurs. Heart is regular rate and rhythm. Pupils are equal, round and reactive to light. The optic nerves are grossly normal, normal boogie, motility, facial symmetry. No facial masking, normal blink frequency, no resting tremor, no cogwheel rigidity. There is a moderate sized ecchymosis on the left medial upper arm. There is some pretibial edema in the right foot. There is mild atrophy in the lower extremities below the knees. There is full strength. Absent ankle jerks, downgoing toes. Symmetric light touch. No asterixis or myoclonus is noted. There may be some minor non-persistent tremor of the left upper extremity with posture and intention. I ambulated the patient without a walker and she had a very narrow-based gait with increased steps, although she did not have a walker. She was not otherwise bradykinetic. IMPRESSION AND PLAN: 1. Movement disorder, not witnessed, episodic, sounds unusual, certainly not seizure. I have asked the daughter to video an incident so we can review. As an outpatient, we will obtain her [facility] records. I think it is possible that this movement disorder is anxiety based. It does not sound like chorea, ballism, dystonia. It does not sound like a typical tremor, does not sound like athetosis. It is certainly not seizure. We will need to monitor and review prior records. No additional workup at this time until we see what has been done at [facility]. The patient should see myself or Ashli Alcantara as an outpatient. 2. The patient at present appears to have some parkinsonian-like gait. Theoretically, she could have normal pressure hydrocephalus, although the gait is not typical for that. Again, we will need to review imaging. I would like to see her walk with the presence of a walker, so I can get a better assessment. 3. History of remote stroke radiographically. Again, we will need to review imaging. RALPH
[2020-09-09] MEDS: ISOSORBIDE DINITRATE 10 MG TAB PO SCH ×2 (07:14→12:32)
[2020-09-09] MEDS: PANTOprazole 40 MG TAB PO SCH (07:52)
[2020-09-09] MEDS: amLODIPine BESYLATE 5 MG TAB PO SCH (07:52)
[2020-09-09] MEDS: APIXABAN 2.5 MG TAB PO SCH (07:52)
[2020-09-09] MEDS: hydrALAZINE TAB 50 MG TAB PO SCH ×2 (07:53→13:18)
[2020-09-09] MEDS: DOCUSATE SODIUM/SENNA 50/8.6MG TAB PO SCH (07:53)
[2020-09-09] MEDS: LIDOCAINE 5% 1 PATCH TD SCH (07:53)
[2020-09-09] MEDS: cloNIDine HCL 0.1 MG TAB PO SCH (07:53)
[2020-09-09] MEDS: FUROSEMIDE 20 MG TAB PO SCH (07:53)
[2020-09-09 08:04] LABS: BUN Creatinine Ratio 15.5 (10-20); Calcium 8.4 mg/dl (8.5-10.1); Creatinine Clr Calc Pharmacy 18.8 ml/min; Est GFR (Non-African American) 27.6; Magnesium 2.5 mg/dl (1.8-2.4); Potassium 3.2 mmol/L (3.5-5.1)
[2020-09-09] MEDS ORDERED: ATORVASTATIN 20 MG TAB PO SCH (09:00)
[2020-09-09] MEDS ORDERED: POTASSIUM CHLORIDE CRTAB 20 MEQ TABCR PO ONE (09:41)
--- NOTE | 2020-09-09 13:39 | Cardiology Progress Note ---
Date of Service September 09, 2020 Assessment & Plan (1) Acute on chronic diastolic (congestive) heart failure: Acute on chronic diastolic heart failure Echo 09/08/2020 reviewed independently LVEF 55 to 60% Moderate mitral regurgitation Mild to moderate mitral stenosis Mild aortic valve stenosis Difficult to control hypertension History of splenic infarct, 2019 -[place] to be due to atheroembolic, or cardioembolic, discharged on Coumadin at that time. -No known history of atrial fibrillation. PLAN: Blood pressure has trended toward significant improvement on hydralazine 100 mg 3 times daily, amlodipine 10 mg daily, clonidine 0.1 mg twice daily, Isordil 10 mg 3 times daily, furosemide 20 mg daily. She is on prior to hospital treatment with atorvastatin 10 mg daily. Potassium was 3.2 today, and I agree with oral replacement. We will likely need potassium supplement at time of discharge. With regards to anticoagulation. She was discharged on Coumadin 2018. In the setting of mitral stenosis, typically Coumadin is the anticoagulant of choice (this is a correction compared to yesterday, when I accidentally typed Eliquis). I would speculate that she was transitioned from Coumadin to Eliquis at some point due to ease of administration. I would therefore favor that perhaps she r emains on this medication, but I would reduce the dose to 2.5 mg twice daily given her age, renal function, and weight of less than 60 kg. She is stable for discharge from my standpoint, I think that if her systolic blood pressure in the range of 140s to 159, that would be acceptable. She obviously has difficulty control hypertension chronic medication regimen as obtained with the [employer] van [employer] operator work of Dr Lagunas. I do not think any particular cardiology follow-up is necessary and she can be managed by PCP. Admission and Anticipated Discharge Date Admission Date: September 06, 2020 Subjective Patient seen in cardiology follow-up. No complaints. She is eager for dischar ge and states that she feels well. No movement disorder noted at present. Most recent blood pressure under much better control 147/67. Telemetry reveals sinus rhythm in the 60s. Physical Exam Physical Exam: Temp Pulse Resp BP Pulse Ox 36.8 C 64 18 147/67 H 96 09/09/20 11:05 09/09/20 11:05 09/09/20 11:05 09/09/20 11:05 09/09/20 11:05 Constitutional: WD/WN, vitals as above Respiratory: normal respiratory effort, lungs clear to auscultation Cardiovascular: Rate/Rhythm: regular rhythm Heart Sounds: + murmur (1/6 systolic murmur) Gastrointestinal (Abdomen): normal bowel sounds, soft, nontender, no hepatosplenomegaly Neurologic: PERRL, EOMI, accommodation nl, no face palsy, no dysarthria Results & Data ([facility]) Vital Signs (Past 12 Hours) Vital Signs Temp Pulse Pulse Resp BP BP Pulse Ox 09/09/20 11:05 36.8 C 64 18 147/67 H 96 09/09/20 10:49 66 20 146/60 H 148/62 H 96 09/09/20 10:21 36.8 C 70 18 146/88 H 96 09/09/20 07:43 62 09/09/20 07:24 37.0 C 70 18 175/80 H 97 09/09/20 03:43 36.9 C 72 18 163/64 H 93 Laboratory Results Comprehensive Metabolic Panel 09/09/20 Range/Units 06:30 Sodium 141 (136-145) mmol/L Potassium 3.2 L (3.5-5.1) mmol/L Chloride 108 H (98-107) mmol/L Carbon Dioxide 26 (21-32) mmol/L BUN 25 H (7-18) mg/dl Creatinine 1.64 H D (0.6-1.2) mg/dl Glucose 135 H (70-99) mg/dl Calcium 8.4 L (8.5-10.1) mg/dl Intake and Output 09/08/20 09/09/20 09/09/20 22:59 06:59 14:59 Intake Total 240 / 600 Output Total 900 / 1801 250 / 1801 Balance -660 / -1201 -250 / -1201 Intake: Oral 240 / 600 Output: Urine 900 / 1800 250 / 1800 Other: Other Intake Source SIPS Weight 59.8 kg Weight Measurement Method Built in [facility]
--- NOTE | 2020-09-09 13:47 | Hospitalist Progress Note ---
Date of Service September 09, 2020 Assessment & Plan (1) Acute on chronic diastolic (congestive) heart failure: Acute on chronic diastolic heart failure H/O diastolic/valvular dysfunction -CXR:Cardiomegaly. Interstitial thickening which favors mild pulmonary edema. Suspected trace bilateral pleural effusions. Low lung volumes. -ECHO: Mild concentric LVH. Basal septum is thickened and angulated consistent with sigmoid septum. Septal motion is consistent with conduction abnormality. LV wall motion normal. EF 55 to 60%. Moderate mitral regurgitation. Mild to moderate mitral stenosis. Grade 1 diastolic dysfunction. 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 Continue amlodipine, hydralazine, Clonidine Also on Isosorbide Chronic Mesenteric Ischemia History of splenic infarct Previously on Coumadin Currently on Eiquis--Likely due to ease of administration Eliquis dose adjusted given age, renal function and weight (2) HODGE (dyspnea on exertion): (3) Hypokalemia: Replace electrolytes as needed Normal magnesium levels (4) CKD (chronic kidney disease), stage III: Cr at baseline Monitor renal function Avoid nephrotoxic agents DM II HbA1C:6.7 Previously on Metformin Currently diet managed Given advanced age, No strict glycemic control Monitor DVT Px: Eliquis Code Status: DNR/DNI Disposition Home Admission and Anticipated Discharge Date Admission Date: September 06, 2020 Subjective Patient is seen and examined at bedside No new complaints Eager to get discharged Denies chest pain, dyspnea, dizziness, nausea, abdominal pain BP improved No recurrence of shakiness Review of Systems Review of Systems: All systems reviewed & are unremarkable except as noted in HPI & below Physical Exam Physical Exam: Physical Exam: Vitals signs as noted above General Appearance:Moderately built and nourished, no apparent distress Head: normocephalic, Atraumatic Eyes: normal inspection, EOMI Neck: supple, Trachea midline Respiratory/Chest: Normal breath sounds, CTA Cardiovascular: S1, S2, No murmur Abdomen/GI:Soft, Non tender, Bowel sounds present Extremities/Musculoskeletal:normal inspection, minimal RLE edema Neurologic/Psych:AAO, grossly no focal neurological deficits, +Movement disorder Skin: normal color, warm Results & Data Results & Data ([facility]) Vital Signs (Past 12 Hours) Vital Signs Temp Pulse Pulse Resp BP BP Pulse Ox 09/09/20 11:05 36.8 C 64 18 147/67 H 96 09/09/20 10:49 66 20 146/60 H 148/62 H 96 09/09/20 10:21 36.8 C 70 18 146/88 H 96 09/09/20 07:43 62 09/09/20 07:24 37.0 C 70 18 175/80 H 97 09/09/20 03:43 36.9 C 72 18 163/64 H 93 Laboratory Results Short CBC 09/06/20 09/06/20 09/07/20 Range/Units 11:18 18:18 06:26 Creatinine 1.49 H 1.41 H 1.44 H (0.6-1.2) mg/dl 09/08/20 09/09/20 Range/Units 07:27 06:30 Creatinine 1.28 H 1.64 H D (0.6-1.2) mg/dl BMP 09/09/20 06:30 Sodium 141 Potassium 3.2 L Chloride 108 H Carbon Dioxide 26 BUN 25 H Creatinine 1.64 H D Glucose 135 H Calcium 8.4 L
--- NOTE | 2020-09-09 13:56 | Discharge Summary ---
Date of Service September 09, 2020 Admission HPI Per Admitting Provider Patient is an 89-year-old female, with history of CHF/diastolic/valvular, posterior mitral annular calcification, hypertension, history of splenic infarction, CAD, DM type II, who presents with shortness of breath. Patient was seen by PCP on September 04, when she went to [facility]. At that time she presented with her daughter, and they discussed her recent hospitalization. Patient was hospitalized about 1 week ago in [place]. Reportedly this was due to pulmonary edema. PCP did not have discharge summary or any records from that hospital stay and currently we do not have that access either. Patient's daughter brought some records from previous hospitalizations however not from the last one. Patient was in the past hospitalized here as well in 2019, at that time was treated for CHF, and splenic infarcts. Patient was also in hospice care in the meantime, and seems like she was discharged from hospice. Per daughter, during last hospitalization patient had EEG because she has jerking movements and walks towards one side, she was told this was due to old stroke. Patient's daughter also reports possibly ureteral stent placement. She is supposed to review records and bring them to the hospital. Patient's daughter also reports that patient often does not take her medications in the evening. However she is not sure 100% about her medications. She gave different med list to the pharmacist and different medication list to me. Pt's daughter is supposed to go home and review her meds and hopefully find also her medical records from last hospital stay and bring them here. Lastly patient has chronic right lower extremity edema, this seems to be from prior surgery in the past, per daughter this seems to be essentially unchanged. When patient was seen by PCP, she was further referred for palliative consult, pulmonary and neurology. She also had blood work done and BNP obtained. BNP was elevated and patient was advised to present to the hospital. Currently patient says that she feels better, and is breathing easier. Admission Exam Per Admitting Provider Physical Exam Constitutional: WD/WN, vitals as above no acute distress Eyes: PERRL, conjunctivae normal, anicteric sclerae ENMT: external ear and nose normal, oropharynx normal Neck: trachea midline, no thyromegaly normal visual inspection Respiratory: normal respiratory effort, lungs clear to auscultation Auscultation: + crackles (+ bibasilar); no wheezes Cardiovascular: Rate/Rhythm: regular rate and regular rhythm Extremities: + edema (RLE (seems chronic)) Chest (Breasts): Chest: normal inspection of chest Gastrointestinal (Abdomen): Inspection/Auscultation: abdomen normal to inspection and normal bowel sounds; abdomen not distended Percussion/Palpation: abdomen soft; abdomen nontender, no guarding and abdomen not rigid Musculoskeletal: Head/Neck/Chest: normocephalic and head atraumatic Skin: no rashes, warm and dry Neurologic: PERRL, EOMI, accommodation nl, no face palsy, no dysarthria moves all extremities Psychiatric: A+Ox3, euthymic affect Genitourinary: no CVA tenderness Principal Diagnosis Acute on chronic diastolic heart failure Hypertension Movement disorder Discharge Data Allergies Allergy/AdvReac Type Severity Reaction Status Date / Time Penicillins Allergy Intermediate Rash Unverified 09/06/20 18:48 Quinolones Allergy Intermediate Rash Unverified 09/06/20 18:48 aspirin AdvReac Mild burning in Unverified 09/06/20 16:55 stomach Consultations 09/06/20 13:58 ED Decision to Admit Stat 09/08/20 08:00 Consult Neurology Routine 09/09/20 12:46 Consult Cardiology Routine Procedures Performed -CXR:Cardiomegaly. Interstitial thickening which favors mild pulmonary edema. Suspected trace bilateral pleural effusions. Low lung volumes. -ECHO: Mild concentric LVH. Basal septum is thickened and angulated consistent with sigmoid septum. Septal motion is consistent with conduction abnormality. LV wall motion normal. EF 55 to 60%. Moderate mitral regurgitation. Mild to moderate mitral stenosis. Grade 1 diastolic dysfunction. Ordered Studies 09/07/20 15:46 US venous doppler LE Routine Hospital Course (1) Acute on chronic diastolic (congestive) heart failure: Acute on chronic diastolic heart failure H/O diastolic/valvular dysfunction -CXR:Cardiomegaly. Interstitial thickening which favors mild pulmonary edema. Suspected trace bilateral pleural effusions. Low lung volumes. -ECHO: Mild concentric LVH. Basal septum is thickened and angulated consistent with sigmoid septum. Septal motion is consistent with conduction abnormality. LV wall motion normal. EF 55 to 60%. Moderate mitral regurgitation. Mild to moderate mitral stenosis. Grade 1 diastolic dysfunction. Received IV lasix Continue lasix 20mg daily Monitor volume status, I's and O's, daily weight Appreciate cardiology input Volume status back to baseline Movement Disorder Unclear etiology Ongoing since 6 months as per patient Evaluated with brain imaging in [place] as per family Appreciate Neurology Input Needs follow up as outpatient HTN H/O Renal artery stenosis Prior-CTA showed at the time marked atherosclerotic disease with extensive plaque in the abdominal aorta, atrophic left kidney and renal artery stenosis of the left kidney Continue amlodipine, hydralazine, Clonidine Also on Isosorbide Chronic Mesenteric Ischemia History of splenic infarct Previously on Coumadin Currently on Eiquis--Likely due to ease of administration Eliquis dose adjusted given age, renal function and weight (2) HODGE (dyspnea on exertion): (3) Hypokalemia: Replace electrolytes as needed Normal magnesium levels (4) CKD (chronic kidney disease), stage III: Cr at baseline Monitor renal function Avoid nephrotoxic agents DM II HbA1C:6.7 Previously on Metformin Currently diet managed Given advanced age, No strict glycemic control Monitor DVT Px: Eliquis Code Status: DNR/DNI Disposition Home Total Time Total Time Spent Total Time Spent (In Minutes): 42 minutes Total Time Includes: Examination of the Patient, Discharge Planning, Medication Reconciliation, 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 With Other Providers and Other Discharge Plan Discharge Items Patient Disposition: Home - Self-Care Reason For Visit: SOB, CHF Discharge Diagnosis: Acute on chronic diastolic heart failure Hypertension Movement disorder Activity: Per Instructions section Exercise/Sports: Gradually increase as tolerated Non-emergency contact: Primary Care Provider and Neurologist Call non-emergency contact if: you have any medication questions, your symptoms worsen, your pain is not controlled, your pain is concerning for you and you have a fever Follow-up/Referrals: PCP,NO [Primary Care Provider] - Diet: Carb Consistent or DM2 and Low Sodium (2gm) Addtl Attending Provider Instructions: Follow-up with your primary care physician in 1 week as advised Follow-up with your neurologist Dr. Ashli Mccord in 4 weeks for further evaluation of your movement disorder. Get blood test (Basic metabolic panel) in 1 week and follow up with your physician Seek immediate medical attention if your symptoms reoccur or worsen Please take all medications as instructed on discharge list below. Please call if you have any questions or problems. You can reach a [facility] hospitalist on duty at [facility] 24 hours a day by calling [phone] Call your Primary Care doctor if any of the following symptoms or problems start or get worse: * Shortness of breath or difficulty breathing * Wake up at night short of breath * Chest pain * Cough * Swelling of your hands, feet, or legs * More fatigued or tired with your normal activity * Palpitations - sudden fast heart beats WEIGHT * Weigh yourself every morning after using the bathroom. * Use the same scale. * Wear the same amount of clothing. * Write your weight down on a chart. * Call your Primary Care doctor if you gain more than 2-3 pounds in 1-2 days. MEDICATIONS * Use this discharge instruction sheet for medication instructions. * Take your medications at the time your doctor ordered. * Do not skip a dose of your medicines. * If you miss a dose of medicine, take it as soon as possible, but DO NOT DOUBLE A DOSE. * Read your medicine information when you get home. * Know all of the side effects of your medicine. If in doubt, ask your pharmacist * Call your Primary Care doctor's office if you have any side effects. * Be sure all of your doctors know what medicine and herbs you take (including cold, flu, and herbal medicine). Take the following with you to your follow-up doctor appointments: * Weight Chart * Medication List * List of questions Do not drink excessive alcohol, beer or wine. Pending Studies at Discharge: No Stand-Alone Forms: My [facility], Smoking Cessation Medications and DC Order Prescriptions: New potassium chloride [Klor-Con M20] 20 mEq Tablet,Er Particles/Crystals 20 meq PO DAILY Qty: 30 RF: 0 Continued amlodipine 10 mg Tablet 10 mg PO DAILY RF: 0 atorvastatin 20 mg Tablet 20 mg PO QAM Qty: 30 RF: 1 hydralazine 100 mg tablet 100 mg PO TID Qty: 90 RF: 1 clonidine HCl 0.1 mg Tablet 0.1 mg PO BID RF: 0 sennosides-docusate sodium [Senna with Docusate Sodium] 8.6-50 mg Tablet 1 tab-cap PO BID RF: 0 pantoprazole 40 mg Tablet,Delayed Release (Dr/Ec) 40 mg PO DAILY RF: 0 furosemide 20 mg PO DAILY RF: 0 isosorbide dinitrate 10 mg PO TID RF: 0 Changed Eliquis 5 mg Tablet 2.5 mg PO BID Qty: 0 RF: 0 Discharge Orders: Discharge Order (Routine); Ordered 05/11/21 Ordered By: Tolu Sanz/Other Patient Handouts: High Blood Sugar (Hyperglycemia), Managing Type 2 Diabetes, Coping with Heart Failure, Managing Diabetes: The A1C Test Admission Data Admit Date/Time: 09/06/20 14:40 Attending Provider: Tolu Lagunas Admit Provider: Tone Osborne Primary Care Provider: PCP,NO Other Providers: Tone Osborne ; Ashli Mccord ; Bobby German Other Interventions: Discharge Summary Assessment (RN) Last Done: 09/09/20 13:58
[2020-09-10] MEDS ORDERED: POTASSIUM CHLORIDE CRTAB 20 MEQ TABCR PO SCH (09:00)
== END 2020-09-09 15:03 | disposition home or self-care (01) | DRG 291 ==
LOC: ED 10:32 → SUATTDRO 14:40 → 2W 14:40

== ENCOUNTER 2020-09-26 06:42 | Inpatient (IN) ==
[2020-09-26] MEDS ORDERED: NITROGLYCERIN 2% OINTMENT 30GM TUBE ONE (07:00)
[2020-09-26] MEDS ORDERED: FUROSEMIDE 40 MG/4 ML VIAL IV ONE (07:01)
[2020-09-26] MEDS ORDERED: FUROSEMIDE 40 MG/4 ML VIAL IV STA (07:02)
[2020-09-26] MEDS ORDERED: LORazepam 0.5 MG/1 ML VIAL IV STA (07:07)
[2020-09-26] MEDS ORDERED: MoRPHine SULFATE 2 MG/ML CARP IV STA (07:08)
[2020-09-26] MEDS ORDERED: ONDANSETRON INJ 2 MG/ML 2 ML VIAL IV STA (07:10)
[2020-09-26] MEDS ORDERED: hydrALAZINE HCL 20 MG/ML VIAL IV STA (07:10)
[2020-09-26] MEDS ORDERED: MoRPHine SULFATE 2 MG/ML CARP ONE (07:11)
[2020-09-26 07:55] LABS: Basophils # (auto) 0.02 K/uL (0-0.2); Basophils % (auto) 0.2 %; Eosinophils # (auto) 0.16 K/uL (0-0.5); Eosinophils % (auto) 1.3 %; Hematocrit (blood only) 34.9 % (37-47); Hemoglobin 11.2 g/dL (12.0-16.0); Immature Granulocytes # (auto) 0.08 K/uL (0.00-0.02); Immature Granulocytes % (auto) 0.7 %; Lymphocytes # (auto) 0.96 K/uL (1.2-3.4); Lymphocytes % (auto) 7.8 %; Mean Corpuscular Hgb Conc 32.1 g/dL (32-36); Mean Corpuscular Volume 74.9 fL (80-100); Mean Platelet Volume 8.7 fL (7.4-10.4); Monocytes # (auto) 1.16 K/uL (0.11-0.59); Monocytes % (auto) 9.5 %; Neutrophils # (auto) 9.88 K/uL (1.4-6.5); Neutrophils % (auto) 80.5 %; Platelet Count 302 K/uL (130-400); RDW Coefficient of Variation 17.3 % (11.5-14.5); RDW Standard Deviation 47.5 fL (36.4-46.3); Red Blood Count 4.66 M/uL (4.2-5.4); White Blood Count 12.26 K/uL (4.8-10.8)
--- NOTE | 2020-09-26 08:12 | Emergency Department Note ---
History of Present Illness General Chief complaint: Respiratory Problems Stated complaint: HARD TO BREATHE Time Seen by Provider: 09/26/20 06:57 Source: patient, family (At bedside) and RN notes reviewed Mode of arrival: ambulatory Limitations: language barrier and clinical acuity History of Present Illness Provider complaint: Shortness of breath Maximum Pain Intensity: 0 This patient is an 89-year-old female who presents to the emergency department in respiratory distress. Patient comes in by private vehicle with her daughter at the bedside. Patient apparently has a history of CHF and is oxygen as needed at night. Daughter states she had several episodes of shortness of breath yes terday but when the daughter went to bed last evening, the patient was doing well. Sometime overnight the patient most of put her oxygen back on because daughter found her gasping for air this morning. Upon arrival to triage the patient is noted to have a markedly elevated blood pressure. Daughter states she did not take her medications this morning. Patient motions that she has chest discomfort in the left side. Daughter denies any fevers, vomiting. She states she follows with [facility] cardiology and Dr. Jeison Grover. Patient's history is somewhat limited due to clinical acuity. Home Medications Medication Instructions Recorded Confirmed Type amlodipine 10 mg PO QAM 03/31/19 09/26/20 History atorvastatin 20 mg PO QAM #30 tab 04/12/19 09/26/20 Rx hydralazine 100 mg PO TID #90 tab 04/12/19 09/26/20 Rx clonidine HCl 0.1 mg PO BID 09/06/20 09/26/20 History pantoprazole 40 mg PO DAILYBB 09/06/20 09/26/20 History sennosides-docusate sodium [Senna 1 tab-cap PO BID 09/06/20 09/26/20 History with Docusate Sodium] Eliquis 2.5 mg PO BID #0 tab 09/09/20 09/26/20 Rx furosemide [Lasix] 20 mg PO QAM 09/26/20 09/26/20 History isosorbide dinitrate 10 mg PO TID 09/26/20 09/26/20 History potassium chloride [Klor-Con M20] 20 meq PO QAM 09/26/20 09/26/20 History Allergies Allergy/AdvReac Type Severity Reaction Status Date / Time Penicillins Allergy Intermediate Rash Unverified 09/26/20 08:04 Quinolones Allergy Intermediate Rash Unverified 09/26/20 08:04 aspirin AdvReac Mild burning in Unverified 09/26/20 08:04 stomach Past Med/Surg History Medical History CHF due to valvular disease Coronary artery disease DM type 2 (diabetes mellitus, type 2) Do not resuscitate status Dyslipidemia Goals of care, counseling/discussion LBBB (left bundle branch block) Mild aortic stenosis Mild mitral stenosis Mitral regurgitation Surgical History H/O repair of left rotator cuff H/O varicose vein stripping History of appendectomy History of hysterectomy Social History Smoking Status: Former smoker Tobacco Type: Cigarettes Hx Alcohol Use: No Hx Substance Use: No Preferred Language: Portuguese 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 Ability: Effective Service Loss Control Consultant Required: No Beliefs That Will Affect Care: None marital status: / Current Living Situation: Family Current Living Situation Comment: lives w/ dtr Other Information That Helps Us Care for You: No Feels Safe at Home: Yes Safety Concerns: Feels Safe At This Time Assistive Devices: Denture - Upper, Denture - Lower, Oxygen - at Night and Walker Review of Systems Other (Unobtainable d/t clinical severity, history per daughter at bedside) Physical Exam Vital Signs Vital Signs - 24 hr 09/26/20 06:47 09/26/20 06:50 09/26/20 07:05 Temperature 36.9 C Temperature Source Temporal Artery Scan Pulse Rate 98 H 103 H Pulse Rate [Apical] 85 Respiratory Rate 30 H 17 34 H Respiratory Effort / Characteristics Short of Breath Grunting Labored Retracting Spontaneous Labored Moaning Respiratory Depth Retractive Shallow Respiratory Pattern Tachypnea Blood Pressure 240/73 H Blood Pressure [Left Arm] 231/118 H Blood Pressure Mean 128 Blood Pressure Mean [Left Arm] 155 Blood Pressure Position Sitting Pulse Oximetry 90 100 100 Oxygen Delivery Method Nasal Cannula BiPAP Oxygen Flow Rate 4 Fraction of Inspired Oxygen 80 Sepsis Recent Fever Within 48 Hours No Sepsis New/Unexplained Change in Mental Status No Sepsis Action Taken by Nursing No Action Required 09/26/20 07:25 09/26/20 07:52 09/26/20 08:05 Temperature Temperature Source Pulse Rate Pulse Rate [Apical] 82 84 70 Respiratory Rate 18 18 17 Respiratory Effort / Characteristics Respiratory Depth Respiratory Pattern Blood Pressure Blood Pressure [Left Arm] 201/74 H 174/64 H 144/65 H Blood Pressure Mean Blood Pressure Mean [Left Arm] 116 100 91 Blood Pressure Position Pulse Oximetry 100 100 100 Oxygen Delivery Method BiPAP BiPAP Oxygen Flow Rate Fraction of Inspired Oxygen Sepsis Recent Fever Within 48 Hours Sepsis New/Unexplained Change in Mental Status Sepsis Action Taken by Nursing Vital signs reviewed. General: Elderly 89 yo female, in acute respiratory distress. HEENT: No scleral icterus, PERRLA, neck supple. Oxymask by nurses-> bipap upon my evaluation. Cardiovascular: Regular rate and rhythm, systolic ejection murmur Pulmonary: Coarse BS to auscultation bilaterally, increased work of breathing. Grunting Abdomen: Soft, nontender, nondistended, positive bowel sounds. Musculoskeletal: Atraumatic, no peripheral edema. Neurologic: Patient awake alert, unable to answer questions or follow commands d/t clinical status Skin: Warm, dry, no rash Course Administered Medications Acetaminophen (Acetaminophen 325 Mg Tab) 650 mg PO Q4H PRN PRN Reason: Moderate Pain Stop: 10/26/20 09:51 Last Admin: 09/28/20 19:29 Dose: 650 mg Documented by: [id number] Amlodipine Besylate (Amlodipine Besylate 5 Mg Tab) 10 mg PO QAM [facility] Stop: 10/26/20 09:59 Last Admin: 09/29/20 08:06 Dose: 10 mg Documented by: [id number] Admin: 09/28/20 07:42 Dose: 10 mg Documented by: [id number] Admin: 09/27/20 07:46 Dose: 10 mg Documented by: [id number] Admin: 09/26/20 11:35 Dose: 10 mg Documented by: [id number] Apixaban (Apixaban 2.5 Mg Tab) 2.5 mg PO BID [facility] Stop: 10/26/20 09:59 Last Admin: 09/29/20 20:44 Dose: 2.5 mg Documented by: [id number] Admin: 09/29/20 08:06 Dose: 2.5 mg Documented by: [id number] Admin: 09/28/20 20:34 Dose: 2.5 mg Documented by: [id number] Admin: 09/28/20 07:41 Dose: 2.5 mg Documented by: [id number] Admin: 09/27/20 20:16 Dose: 2.5 mg Documented by: [id number] Admin: 09/27/20 07:45 Dose: 2.5 mg Documented by: [id number] Admin: 09/26/20 20:23 Dose: 2.5 mg Documented by: [id number] Admin: 09/26/20 11:34 Dose: 2.5 mg Documented by: [id number] Atorvastatin Calcium (Atorvastatin 20 Mg Tab) 20 mg PO QAM [facility] Stop: 10/27/20 08:59 Last Admin: 09/29/20 08:06 Dose: 20 mg Documented by: [id number] Admin: 09/28/20 07:41 Dose: 20 mg Documented by: [id number] Admin: 09/27/20 07:46 Dose: 20 mg Documented by: [id number] Clonidine HCl (Clonidine Hcl 0.1 Mg Tab) 0.2 mg PO BID [facility] Stop: 10/28/20 20:59 Last Admin: 09/29/20 20:45 Dose: 0.2 mg Documented by: [id number] Admin: 09/29/20 08:06 Dose: 0.2 mg Documented by: [id number] Admin: 09/28/20 20:34 Dose: 0.2 mg Documented by: [id number] Furosemide (Furosemide 20 Mg Tab) 20 mg PO QAM [facility] Stop: 10/29/20 10:59 Last Admin: 09/29/20 11:55 Dose: 20 mg Documented by: [id number] Hydralazine HCl (Hydralazine Tab 50 Mg Tab) 100 mg PO TID [facility] Stop: 10/27/20 13:59 Last Admin: 09/29/20 20:45 Dose: 100 mg Documented by: [id number] Admin: 09/29/20 13:30 Dose: 100 mg Documented by: [id number] Admin: 09/29/20 08:07 Dose: 100 mg Documented by: [id number] Admin: 09/28/20 19:33 Dose: 100 mg Documented by: [id number] Admin: 09/28/20 13:43 Dose: 100 mg Documented by: [id number] Admin: 09/28/20 07:41 Dose: 100 mg Documented by: [id number] Admin: 09/27/20 19:51 Dose: 100 mg Documented by: [id number] Admin: 09/27/20 16:04 Dose: 100 mg Documented by: [id number] Isosorbide Dinitrate (Isosorbide Dinitrate 10 Mg Tab) 10 mg PO TID@0700,1200,1700 [facility] Stop: 10/27/20 11:59 Last Admin: 09/29/20 17:19 Dose: 10 mg Documented by: [id number] Admin: 09/29/20 11:55 Dose: 10 mg Documented by: [id number] Admin: 09/29/20 08:06 Dose: 10 mg Documented by: [id number] Admin: 09/28/20 16:31 Dose: 10 mg Documented by: [id number] Admin: 09/28/20 11:52 Dose: 10 mg Documented by: [id number] Admin: 09/28/20 07:40 Dose: 10 mg Documented by: [id number] Admin: 09/27/20 16:04 Dose: 10 mg Documented by: [id number] Admin: 09/27/20 12:09 Dose: 10 mg Documented by: [id number] Potassium Chloride (Potassium Chloride Crtab 20 Meq Tabcr) 20 meq PO QAM [facility] Stop: 10/27/20 08:59 Last Admin: 09/29/20 08:06 Dose: 20 meq Documented by: [id number] Admin: 09/28/20 07:42 Dose: 20 meq Documented by: [id number] Admin: 09/27/20 07:46 Dose: 20 meq Documented by: [id number] Discontinued Medications Clonidine HCl (Clonidine Hcl 0.1 Mg Tab) 0.1 mg PO BID [facility] Stop: 10/26/20 09:59 Last Admin: 09/28/20 07:41 Dose: 0.1 mg Documented by: [id number] Admin: 09/27/20 19:51 Dose: 0.1 mg Documented by: [id number] Admin: 09/27/20 07:45 Dose: 0.1 mg Documented by: [id number] Admin: 09/26/20 20:24 Dose: 0.1 mg Documented by: [id number] Admin: 09/26/20 11:35 Dose: 0.1 mg Documented by: [id number] Clonidine HCl (Clonidine Hcl 0.1 Mg Tab) 0.1 mg PO NOW ONE Stop: 09/28/20 10:30 Last Admin: 09/28/20 11:40 Dose: 0.1 mg Documented by: [id number] Furosemide (Furosemide 40 Mg/4 Ml Vial) Confirm Administered Dose 40 mg IV .STK- MED ONE Stop: 09/26/20 07:02 Last Admin: 09/26/20 07:06 Dose: 40 mg Documented by: [id number] Furosemide (Furosemide 40 Mg/4 Ml Vial) 40 mg IV NOW STA Stop: 09/26/20 07:03 Last Admin: 09/26/20 07:06 Dose: Not Given Documented by: [id number] Hydralazine HCl (Hydralazine Hcl 20 Mg/Ml Vial) 10 mg IV NOW STA Stop: 09/26/20 07:11 Last Admin: 09/26/20 07:29 Dose: 10 mg Documented by: [id number] Hydralazine HCl (Hydralazine Hcl 25 Mg Tab) 25 mg PO TID [facility] Stop: 10/26/20 13:59 Last Admin: 09/27/20 07:45 Dose: 25 mg Documented by: [id number] Admin: 09/26/20 20:24 Dose: 25 mg Documented by: [id number] Admin: 09/26/20 14:47 Dose: 25 mg Documented by: [id number] Hydralazine HCl (Hydralazine Hcl 25 Mg Tab) 25 mg PO ONE ONE Stop: 09/27/20 10:01 Last Admin: 09/27/20 10:28 Dose: 25 mg Documented by: [id number] Lorazepam (Ativan) 0.5 mg in 1 mls @ 1 mls/min IV NOW STA Stop: 09/26/20 07:08 Last Admin: 09/26/20 07:13 Dose: 1 mls/min Documented by: [id number] Furosemide 40 mg/ Syringe 4 mls @ 4 mls/min IV [id number] [facility] Stop: 10/26/20 09:59 Last Admin: 09/26/20 11:34 Dose: 4 mls/min Documented by: [id number] Furosemide 80 mg/ Syringe 8 mls @ 4 mls/min IV [id number] [facility] Stop: 10/26/20 16:59 Last Admin: 09/27/20 07:46 Dose: 4 mls/min Documented by: [id number] Admin: 09/26/20 17:34 Dose: 4 mls/min Documented by: [id number] Furosemide 40 mg/ Syringe 4 mls @ 4 mls/min IV [id number] [facility] Stop: 10/27/20 16:59 Last Admin: 09/29/20 11:01 Dose: Not Given Documented by: [id number] Admin: 09/28/20 16:31 Dose: 4 mls/min Documented by: [id number] Admin: 09/28/20 07:42 Dose: 4 mls/min Documented by: [id number] Admin: 09/27/20 16:04 Dose: 4 mls/min Documented by: [id number] Isosorbide Dinitrate (Isosorbide Dinitrate 10 Mg Tab) 10 mg PO ONE ONE Stop: 09/27/20 10:01 Last Admin: 09/27/20 11:02 Dose: 10 mg Documented by: [id number] Lorazepam (Lorazepam 2 Mg/4 Ml Vial) Confirm Administered Dose 2 mg .ROUTE .STK- MED ONE Stop: 09/28/20 10:51 Last Increment: 09/28/20 10:54 Dose: 0.25 mg Documented by: [id number] Lorazepam (Lorazepam 2 Mg/4 Ml Vial) Confirm Administered Dose 2 mg .ROUTE .STK- MED ONE Stop: 09/28/20 11:10 Last Increment: 09/28/20 11:20 Dose: 0.25 mg Documented by: [id number] Morphine Sulfate (Morphine Sulfate 2 Mg/Ml Carp) 2 mg IV NOW STA Stop: 09/26/20 07:09 Last Admin: 09/26/20 07:13 Dose: 2 mg Documented by: [id number] Morphine Sulfate (Morphine Sulfate 2 Mg/Ml Carp) Confirm Administered Dose 2 mg .ROUTE .STK-MED ONE Stop: 09/26/20 07:12 Last Admin: 09/26/20 07:14 Dose: Not Given Documented by: [id number] Nitroglycerin (Nitroglycerin 2% Ointment 30gm Tube) Confirm Administered Dose 18 inch .ROUTE .STK-MED ONE Stop: 09/26/20 07:01 Last Admin: 09/26/20 07:06 Dose: 1 inch Documented by: [id number] Ondansetron HCl (Ondansetron Inj 2 Mg/Ml 2 Ml Vial) 4 mg IV NOW STA Stop: 09/26/20 07:11 Last Admin: 09/26/20 07:30 Dose: 4 mg Documented by: [id number] Potassium Chloride (Potassium Chloride Crtab 20 Meq Tabcr) 40 meq PO NOW STA Stop: 09/27/20 08:52 Last Admin: 09/27/20 09:42 Dose: 40 meq Documented by: [id number] Potassium Chloride (Potassium Chloride Crtab 20 Meq Tabcr) 40 meq PO NOW STA Stop: 09/28/20 08:02 Last Admin: 09/28/20 08:41 Dose: 40 meq Documented by: [id number] Potassium Chloride (Potassium Chloride Crtab 20 Meq Tabcr) 40 meq PO NOW STA Stop: 09/29/20 13:32 Last Admin: 09/29/20 14:26 Dose: 40 meq Documented by: [id number] Critical Care Time Critical Care Time: Yes Total Critical Care Time: 35 The high probability of a clinically significant, sudden or life threatening deterioration required my full and direct attention, intervention and personal management. The aggregate critical care time was 35 minutes. This time is in addition to time spent performing reported procedures but includes the fol lowing: [x] Data Review and interpretation [x] Patient assessment and monitoring of vital signs [x] Documentation [x] Medication orders and management Medical Decision Making Differential Diagnosis Reactive airway disease, pneumonia, pneumothorax, COPD, CHF, infections, cardiac ischemia, pulmonary embolism, musculoskeletal, gastrointestinal, as well as other pathologies. Medical Records Attestation: I reviewed the patient's medical records. Home Medications Current Medication List: was personally reviewed by me Laboratory Data Attestation: I reviewed the patient's lab results. Result diagrams: 09/29/20 06:05 09/29/20 06:05 Lab Results 09/26/20 09/26/20 09/26/20 Range/Units 07:07 07:07 07:44 WBC 12.26 H (4.8-10.8) K/uL RBC 4.66 (4.2-5.4) M/uL Hgb 11.2 L (12.0-16.0) g/dL Hct 34.9 L (37-47) % MCV 74.9 L (80-100) fL MCH 24.0 L (25-34) pg MCHC 32.1 (32-36) g/dL RDW Std Deviation 47.5 H (36.4-46.3) fL RDW Coeff of Dion 17.3 H (11.5-14.5) % Plt Count 302 (130-400) K/uL MPV 8.7 (7.4-10.4) fL Immature Gran % (Auto) 0.7 % Neut % (Auto) 80.5 % Lymph % (Auto) 7.8 % Tillman % (Auto) 9.5 % Eos % (Auto) 1.3 % Baso % (Auto) 0.2 % Neut # (Auto) 9.88 H (1.4-6.5) K/uL Lymph # (Auto) 0.96 L (1.2-3.4) K/uL Tillman # (Auto) 1.16 H (0.11-0.59) K/uL Eos # (Auto) 0.16 (0-0.5) K/uL Baso # (Auto) 0.02 (0-0.2) K/uL Immature Gran # (Auto) 0.08 H (0.00-0.02) K/uL Sodium (136-145) mmol/L Potassium (3.5-5.1) mmol/L Chloride (98-107) mmol/L Carbon Dioxide (21-32) mmol/L Anion Gap (3-11) BUN (7-18) mg/dl Creatinine (0.6-1.2) mg/dl Est Cr Clr Drug Dosing ml/min Est GFR ( Amer) ml/min Est GFR (Non-Af Amer) ml/min BUN/Creatinine Ratio (10-20) Glucose (70-99) mg/dl Calcium (8.5-10.1) mg/dl Magnesium (1.8-2.4) mg/dl Total Bilirubin (0.2-1) mg/dl AST (15-37) U/L ALT (12-78) U/L Alkaline Phosphatase (45-117) U/L Troponin I (0-0.045) ng/ml NT-Pro-B Natriuret Pep (0-1800) pg/ml Total Protein (6.4-8.2) gm/dl Albumin (3.4-5.0) gm/dl Globulin (2.5-4.0) gm/dl Albumin/Globulin Ratio (0.9-2) Procalcitonin (0-0.5) ng/ml Urine Color Urine Appearance (Clear) Urine pH (4.5-7.5) Ur Specific [place] (1.000-1.030) Urine Protein (Negative) Urine Glucose (UA) (Negative) Urine Ketones (Negative) Urine Blood (Negative) Urine Nitrite (Negative) Urine Bilirubin (Negative) Urine Urobilinogen (Negative) Ur Leukocyte Esterase (Negative) Urine WBC (Auto) (0-5) /hpf Urine RBC (Auto) (0-4) /hpf U Hyaline Cast (Auto) (0-5) /lpf U Epithel Cells (Auto) (0-5) /lpf Urine Bacteria (Auto) (Negative) COVID-19 Eval Order Covid19 at [facility] SARS-CoV-2 (PCR) NEGATIVE (Negative) 09/26/20 09/26/20 09/26/20 Range/Units 07:44 07:46 07:53 WBC (4.8-10.8) K/uL RBC (4.2-5.4) M/uL Hgb (12.0-16.0) g/dL Hct (37-47) % MCV (80-100) fL MCH (25-34) pg MCHC (32-36) g/dL RDW Std Deviation (36.4-46.3) fL RDW Coeff of Dion (11.5-14.5) % Plt Count (130-400) K/uL MPV (7.4-10.4) fL Immature Gran % (Auto) % Neut % (Auto) % Lymph % (Auto) % Tillman % (Auto) % Eos % (Auto) % Baso % (Auto) % Neut # (Auto) (1.4-6.5) K/uL Lymph # (Auto) (1.2-3.4) K/uL Tillman # (Auto) (0.11-0.59) K/uL Eos # (Auto) (0-0.5) K/uL Baso # (Auto) (0-0.2) K/uL Immature Gran # (Auto) (0.00-0.02) K/uL Sodium 139 (136-145) mmol/L Potassium 3.6 (3.5-5.1) mmol/L Chloride 109 H (98-107) mmol/L Carbon Dioxide 20 L (21-32) mmol/L Anion Gap 10.0 (3-11) BUN 32 H (7-18) mg/dl Creatinine 1.63 H (0.6-1.2) mg/dl Est Cr Clr Drug Dosing 21.1 ml/min Est GFR ( Amer) 32.0 ml/min Est GFR (Non-Af Amer) 27.6 ml/min BUN/Creatinine Ratio 19.4 (10-20) Glucose 289 H (70-99) mg/dl Calcium 8.5 (8.5-10.1) mg/dl Magnesium 2.3 (1.8-2.4) mg/dl Total Bilirubin 0.5 (0.2-1) mg/dl AST 15 (15-37) U/L ALT 13 (12-78) U/L Alkaline Phosphatase 145 H (45-117) U/L Troponin I 0.193 H* (0-0.045) ng/ml NT-Pro-B Natriuret Pep 28977 H (0-1800) pg/ml Total Protein 6.6 (6.4-8.2) gm/dl Albumin 3.2 L (3.4-5.0) gm/dl Globulin 3.4 (2.5-4.0) gm/dl Albumin/Globulin Ratio 0.9 (0.9-2) Procalcitonin < 0.05 (0-0.5) ng/ml Urine Color Yellow Urine Appearance Clear (Clear) Urine pH 5.5 (4.5-7.5) Ur Specific [place] 1.017 (1.000-1.030) Urine Protein 4+ H (Negative) Urine Glucose (UA) Trace H (Negative) Urine Ketones Negative (Negative) Urine Blood Negative (Negative) Urine Nitrite Negative (Negative) Urine Bilirubin Negative (Negative) Urine Urobilinogen Negative (Negative) Ur Leukocyte Esterase Negative (Negative) Urine WBC (Auto) 1-5 (0-5) /hpf Urine RBC (Auto) 0-4 (0-4) /hpf U Hyaline Cast (Auto) 5-10 H (0-5) /lpf U Epithel Cells (Auto) >30 H (0-5) /lpf Urine Bacteria (Auto) Negative (Negative) COVID-19 Eval Order SARS-CoV-2 (PCR) (Negative) Imaging Data Radiologist's Impression: Chest X-Ray 09/26/20 07:02 XR chest 1V portable HISTORY: Dyspnea COMPARISON: Chest 09/06/2020. FINDINGS: No pneumothorax. There are patchy bibasilar airspace opacities which have progressed in the interval. There are low lung volumes. Trace bilateral pleural effusions. The heart appears enlarged. IMPRESSION: Interval development of patchy bibasilar airspace opacities and trace bilateral pleural effusions. This favors a pneumonia and could be secondary to aspiration or viral process. ACT 112: Negative or not required by law. Electronically signed by: Wing Lopez M.D. 09/26/2020 8:11 AM ECG Data Attestation: I personally reviewed and interpreted this ECG as follows: Indication: + SOB/dyspnea and + tachycardia Rate (beats per minute): 112 Rhythm: + sinus tachycardia ECG Intervals/blocks: + Left bundle branch block and + Prolonged QT ECG ST segments: + Nonspecific ST abnormalities ECG Findings: + Other; no PACs and no PVCs Blood Pressure Blood Pressure Findings: Elevated blood pressure Blood Pressure Disposition: further management by hospitalist MDM Narrative This pt was evaluated and appeared to be in significant respiratory distress. IV access was obtained and lab work was drawn. An order for cardiac monitoring was placed and pt was noted to be in a sinus tachycardia at 103 bpm. CXR rev eals patchy infiltrative vs congestive change. COVID swab is negative and BNP is markedly elevated. Pt was medicated with IV lasix, topical NTG paste and IV morphine. She was immediately placed on bipap for resp support. IV hydralazine was administered d/t markedly elevated BP. Pt was much improved after the above interventions and d/w the hospitalist service for further management. Daughter was at the bedside and agreed with the plan. Impression & Plan CHF exacerbation Discharge Plan Visit Data Chief Complaint: Respiratory Problems Stated Complaint: HARD TO BREATHE ED Provider: Sheela Blackwood Discharge Problem: CHF exacerbation Patient Disposition: Admitted As Inpatient Discharge Instructions Interventions: ED Discharge Assessment Last Done: 09/26/20 09:21 Discharge Problem: CHF exacerbation Qualifiers: Heart failure type: unspecified Qualified Code(s): I50.9 - Heart failure, unspecified
--- NOTE | 2020-09-26 08:23 | History & Physical Report ---
Date of Service September 26, 2020 Assessment & Plan (1) Acute on chronic diastolic (congestive) heart failure: -Admit to PCU -History of diastolic/valvular dysfunction -CXR: Interval development of patchy bibasilar airspace opacities and trace bilateral pleural effusions. This favors a pneumonia and could be secondary to aspiration or viral process. -EKG reviewed, poor study, does not appear to have any obvious ST wave changes, no chest pain -Troponin is elevated 0.193, will trend x2 [place] [id number], IV Lasix given in the ER, continue with aggressive diuresis with 40 mg IV BID. At home is on Lasix 20 mg p.o. daily. -Daily weights, strict I's/O's, fluid restriction once allowed diet, keep n.p.o. for now while on BiPAP -Last echo done on 09/08/2020, consider repeat limited echo, LVEF 55 to 60% at that time with moderate MR, moderate mitral stenosis, mild aortic valve st enosis. -Cardiology consulted-follows with Dr. German as outpatient (2) Hypertensive urgency: -Blood pressure of 230/118 upon arrival to the ER, given 1 inch Nitropaste, Ativan, morphine, IV hydralazine with some improvement. -Will resume home clonidine and amlodipine now, [facility] meds also include Isordil 10 mg 3 times daily, Lasix 20 mg daily -IV diuresis as above (3) Pulmonary edema: -CXR as above, possibly concerning for pneumonia -Patient with rigors during exam, will check blood cultures, lactic acid and pro calcitonin to rule out infectious source, pending labs will possibly start on ceftriaxone and doxycycline -Afebrile, WBC = 12.26 (4) Coronary artery disease: -History of such, continue statin, antihypertensives as above (5) Dyslipidemia: -Continue atorvastatin 20 mg daily (6) Hypertension: -As above, history of being difficult to control, attempt to get back to her home medications. (7) Mild mitral stenosis: (8) Mild aortic stenosis: (9) Mitral regurgitation: (10) DM type 2 (diabetes mellitus, type 2): -A1c = 6.7 on 09/07/2020 -ISS with Accu-Cheks ACHS and for now Q6H while n.p.o. (11) Splenic infarct: -Midnight to be due to atheroembolic, or cardioembolic, was discharged on Coumadin in April 2019, at some point time was transitioned to Eliquis, likely due to ease of administration. -Continue Eliquis 2.5 mg p.o. twice daily due to weight, age and renal function. (12) CKD (chronic kidney disease), stage III: -Creatinine 1.63, BUN 32, appears that her baseline creatinine is 1.3-1.4, monitor with a.m. labs with aggressive diuresis -Lu in place -Renally dose medications DVT PPx: - teds, Eliquis CODE: DNR/DNI Dispo: From home, likely to remain in the hospital x 1-2 days History of Present Illness Primary Care Provider: Dakota Meléndez MD This is an 89 yo F with PMHx of CHF/diastolic/valvular, posterior mitral annular calcification, hypertension, history of splenic infarction, CAD, hypertensive emergency, renal artery stenosis, likely chronic mesenteric ischemia given previous hx of abdominal/epigastric pain, DM type II, who presents with shortness of breath. Recent hospitalizations: 09/06/20-09/09/20 at [facility] for CHF exacerbation ~08/30/20 in [place] for reported pulmonary edema 10/23/19 in [place] [facility] for chest pain, hypertensive emergency with BP of 220/120, required nicardipine gtt, and renal artery stenosis. 04/13/2019 at [facility] for splenic infarcts and pulmonary edema She reports shortness of breath worsened over the past day. Wears 2 L at baseline and needed to increase this to 4 to 5 L overnight due to orthopnea and shortness of breath at rest. Her breathing has improved since being on BiPAP here in the ER. Swelling in her feet and legs has worsened over the past few day s. Patient is unsure what her baseline weight is, and has not weighed herself recently. She denies any specific chest pain, headache, flutter, palpitations, nausea or vomiting. She admits to having some epigastric abdominal pain currently, very mild. She lives at home with her daughter as she is . Denies any smoking or drinking alcohol. In the ER patient found to have blood pressure of 230/118, was given hydralazine 10 mg IV, Nitropaste 1 inch, Ativan 0.5 mg IV, and morphine sulfate IV. She missed her morning clonidine and amlodipine due to her symptoms. Troponin is elevated at 0.193, BNP = 48026. Lasix 40 mg IV was given in the ER, will continue with aggressive diuresis. CXR showing pulmonary edema. The patient does seem to be having some rigors during my interview, will do infectious work- up to rule out underlying pneumonia. Allergies Allergy/AdvReac Type Severity Reaction Status Date / Time Penicillins Allergy Intermediate Rash Unverified 09/26/20 08:04 Quinolones Allergy Intermediate Rash Unverified 09/26/20 08:04 aspirin AdvReac Mild burning in Unverified 09/26/20 08:04 stomach Home Medications Medication Instructions Recorded Confirmed Type amlodipine 10 mg PO QAM 03/31/19 09/26/20 History atorvastatin 20 mg PO QAM #30 tab 04/12/19 09/26/20 Rx hydralazine 100 mg PO TID #90 tab 04/12/19 09/26/20 Rx clonidine HCl 0.1 mg PO BID 09/06/20 09/26/20 History pantoprazole 40 mg PO DAILYBB 09/06/20 09/26/20 History sennosides-docusate sodium [Senna 1 tab-cap PO BID 09/06/20 09/26/20 History with Docusate Sodium] Eliquis 2.5 mg PO BID #0 tab 09/09/20 09/26/20 Rx furosemide [Lasix] 20 mg PO QAM 09/26/20 09/26/20 History isosorbide dinitrate 10 mg PO TID 09/26/20 09/26/20 History potassium chloride [Klor-Con M20] 20 meq PO QAM 09/26/20 09/26/20 History Past Med/Surg History Medical History CHF due to valvular disease Coronary artery disease DM type 2 (diabetes mellitus, type 2) Do not resuscitate status Dyslipidemia Goals of care, counseling/discussion LBBB (left bundle branch block) Mild aortic stenosis Mild mitral stenosis Mitral regurgitation Surgical History H/O repair of left rotator cuff H/O varicose vein stripping History of appendectomy History of hysterectomy Social History Smoking Status: Former smoker Tobacco Type: Cigarettes Hx Alcohol Use: No Hx Substance Use: No Preferred Language: Bhutanese 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 Ability: Effective Chemistry Laboratory Technician Required: No Beliefs That Will Affect Care: None marital status: / Current Living Situation: Family Current Living Situation Comment: lives w/ dtr Other Information That Helps Us Care for You: No Feels Safe at Home: Yes Safety Concerns: Feels Safe At This Time Assistive Devices: Denture - Upper, Denture - Lower, Oxygen - at Night and Walker Review of Systems Review of Systems: Constitutional: No fever, sweats, + shakes and chills here in the ER Eyes: No diplopia, no worsening or blurred vision ENT: normal hearing, no trouble swallowing Respiratory: + Cough, + dyspnea at rest and on exertion, increased O2 requirements Cardiovascular: No chest pain, tightness or palpitations Abdomen: + Mild epigastric pain, nausea, vomiting, diarrhea or constipation Musculoskeletal: No joint pain, calf pain, + lower extremity swelling Neurologic: + Generalized weakness, no numbness/tingling, or balance problems Psychiatric: No anxiety or depression Skin: No rash or itch Physical Exam Physical Exam: General: awake, alert, mild distress, anxious, on BiPAP Head: Normocephalic, atraumatic ENT: PERRL, EOMI, no pharyngeal exudate, mucous membranes not examined due to being on BiPAP Chest: Diminished throughout, + crackles, on BiPAP, Cardiac: Regular rate and rhythm, + systolic murmur, no JVD, normal peripheral pulses, good capillary refill Abdominal: NABS x 4 quadrants, soft, nondistended, mild tenderness to palpation in epigastric region, no rebound or guarding Extremities: Normal inspection, 2+ peripheral pitting edema, no erythema, calfs nontender to palpation Psych: Anxious affect Neuro: AAO x 3, strength intact bilaterally and rated 5/5, no motor deficits, speech is clear, no peripheral sensory deficits Results & Data Results & Data ([facility]) Vital Signs (Past 12 Hours) Vital Signs Temp Pulse Pulse Resp BP BP Pulse Ox 09/26/20 08:05 70 17 144/65 H 100 09/26/20 07:52 84 18 174/64 H 100 09/26/20 07:25 82 18 201/74 H 100 09/26/20 07:05 103 H 34 H 100 09/26/20 06:50 85 17 231/118 H 100 09/26/20 06:47 36.9 C 98 H 30 H 240/73 H 90 Laboratory Results Laboratory Results - last 24 hr 09/26/20 09/26/20 09/26/20 07:07 07:07 07:44 WBC 12.26 H RBC 4.66 Hgb 11.2 L Hct 34.9 L MCV 74.9 L MCH 24.0 L MCHC 32.1 RDW Std Deviation 47.5 H RDW Coeff of Dion 17.3 H Plt Count 302 MPV 8.7 Immature Gran % (Auto) 0.7 Neut % (Auto) 80.5 Lymph % (Auto) 7.8 [place] % (Auto) 9.5 Eos % (Auto) 1.3 Baso % (Auto) 0.2 Neut # (Auto) 9.88 H Lymph # (Auto) 0.96 L [place] # (Auto) 1.16 H Eos # (Auto) 0.16 Baso # (Auto) 0.02 Immature Gran # (Auto) 0.08 H Sodium Potassium Chloride Carbon Dioxide Anion Gap BUN Creatinine Est Cr Clr Drug Dosing Est GFR ( Amer) Est GFR (Non-Af Amer) BUN/Creatinine Ratio Glucose Calcium Magnesium Total Bilirubin AST ALT Alkaline Phosphatase Troponin I NT-Pro-B Natriuret Pep Total Protein Albumin Globulin Albumin/Globulin Ratio Procalcitonin Urine Color Urine Appearance Urine pH Ur Specific [place] Urine Protein Urine Glucose (UA) Urine Ketones Urine Blood Urine Nitrite Urine Bilirubin Urine Urobilinogen Ur Leukocyte Esterase Urine WBC (Auto) Urine RBC (Auto) U Hyaline Cast (Auto) U Epithel Cells (Auto) Urine Bacteria (Auto) COVID-19 Eval Order Covid19 at [facility] SARS-CoV-2 (PCR) NEGATIVE 09/26/20 09/26/20 09/26/20 07:44 07:46 07:53 WBC RBC Hgb Hct MCV MCH MCHC RDW Std Deviation RDW Coeff of Dion Plt Count MPV Immature Gran % (Auto) Neut % (Auto) Lymph % (Auto) [place] % (Auto) Eos % (Auto) Baso % (Auto) Neut # (Auto) Lymph # (Auto) [place] # (Auto) Eos # (Auto) Baso # (Auto) Immature Gran # (Auto) Sodium 139 Potassium 3.6 Chloride 109 H Carbon Dioxide 20 L Anion Gap 10.0 BUN 32 H Creatinine 1.63 H Est Cr Clr Drug Dosing 21.1 Est GFR ( Amer) 32.0 Est GFR (Non-Af Amer) 27.6 BUN/Creatinine Ratio 19.4 Glucose 289 H Calcium 8.5 Magnesium 2.3 Total Bilirubin 0.5 AST 15 ALT 13 Alkaline Phosphatase 145 H Troponin I 0.193 H* NT-Pro-B Natriuret Pep 25609 H Total Protein 6.6 Albumin 3.2 L Globulin 3.4 Albumin/Globulin Ratio 0.9 Procalcitonin < 0.05 Urine Color Yellow Urine Appearance Clear Urine pH 5.5 Ur Specific [place] 1.017 Urine Protein 4+ H Urine Glucose (UA) Trace H Urine Ketones Negative Urine Blood Negative Urine Nitrite Negative Urine Bilirubin Negative Urine Urobilinogen Negative Ur Leukocyte Esterase Negative Urine WBC (Auto) 1-5 Urine RBC (Auto) 0-4 U Hyaline Cast (Auto) 5-10 H U Epithel Cells (Auto) >30 H Urine Bacteria (Auto) Negative COVID-19 Eval Order SARS-CoV-2 (PCR) Diagnostic Findings Chest X-Ray 09/26/20 07:02 XR chest 1V portable HISTORY: Dyspnea COMPARISON: Chest 09/06/2020. FINDINGS: No pneumothorax. There are patchy bibasilar airspace opacities which have progressed in the interval. There are low lung volumes. Trace bilateral pleural effusions. The heart appears enlarged. IMPRESSION: Interval development of patchy bibasilar airspace opacities and trace bilateral pleural effusions. This favors a pneumonia and could be secondary to aspiration or viral process. ACT 112: Negative or not required by law. Electronically signed by: Wing Lopez M.D. 09/26/2020 8:11 AM ECG Additional Comments: 26-SEP-2020 06:58:18 [facility]-EDSTAT ROUTINE RETRIEVAL Poor data quality, interpretation may be adversely affected Sinus tachycardia Possible Left atrial enlargement Left bundle branch block Abnormal ECG When compared with ECG of 06-SEP-2020 11:11, No significant change was found 25mm/s 10mm/mV 150Hz 9.0.9 12SL 241 SANDRA: 3 Unconfirmed Vent. rate 112 BPM IL interval 144 ms QRS duration 152 ms QT/QTc 376/513 ms Code Status & VTE Plan Code Status DNR/DNI - discussed with the pt at bedside Supervising Physician Co-Signing Physician Notes Attending addendum: The patient was seen and examined in telemetry unit She is an 89-year-old female with significant past medical history as mentioned in H&P was admitted with acute respiratory distress likely secondary to acute diastolic heart failure with hypertensive urgency and possible pneumonia She has been feeling much better since admission Denies any chest pain and/or palpitation On examination Lying in bed comfortably Hemodynamically stable with systolic blood pressure of 153 Chest-bibasilar crackles Heart-S1-S2, 2/6 ESM over precordium Abdomen-benign Extremities-1+ edema bilaterally Her admission labs, EKG and imaging studies reviewed Has CHF and is complicated by hypertensive urgency and pneumonia Cardiology consulted Agree with assessment and plan as outlined above by Diamond Anderson (1) Hypertension Hypertension type: unspecified Qualified Code(s): I10 - Essential (primary) hypertension
[2020-09-26 08:25] LABS: Albumin Level 3.2 gm/dl (3.4-5.0); BUN Creatinine Ratio 19.4 (10-20); Calcium 8.5 mg/dl (8.5-10.1); Creatinine Clr Calc Pharmacy 21.1 ml/min; Est GFR (Non-African American) 27.6 ml/min; Magnesium 2.3 mg/dl (1.8-2.4); Potassium 3.6 mmol/L (3.5-5.1)
[2020-09-26 08:26] LABS: Appearance Urine Clear (Clear); Bacteria Urine Automated Negative (Negative); Bilirubin Urine Negative (Negative); Blood Urine Negative (Negative); Color Urine Yellow; Epithelial Cell Urine Auto >30 /lpf (0-5); Glucose Urine UA Trace (Negative); Ketones Urine Negative (Negative); Leukocyte Esterase Urine Negative (Negative); Nitrite Urine Negative (Negative); Protein Urine 4+ (Negative); RBC Urine Automated 0-4 /hpf (0-4); Specific Gravity Urine 1.017 (1.000-1.030); Urobilinogen Urine Negative (Negative); pH Urine 5.5 (4.5-7.5)
[2020-09-26 08:33] LABS: Albumin Globulin Ratio 0.9 (0.9-2); Bilirubin,Total 0.5 mg/dl (0.2-1); Globulin 3.4 gm/dl (2.5-4.0); Total Protein 6.6 gm/dl (6.4-8.2); Troponin I 0.193 ng/ml (0-0.045)
[2020-09-26] MEDS ORDERED: ONDANSETRON INJ 2 MG/ML 2 ML VIAL IV PRN (09:52)
[2020-09-26] MEDS ORDERED: ACETAMINOPHEN 325 MG TAB PO PRN (09:52)
[2020-09-26] MEDS ORDERED: FUROSEMIDE 40 MG/4 ML VIAL IV SCH (09:52)
[2020-09-26] MEDS ORDERED: FUROSEMIDE 40 MG in SYRINGE 0 ML IV SCH (10:00)
--- NOTE | 2020-09-26 10:48 | Cardiology Consultation ---
Date of Consultation September 26, 2020 Assessment & Plan (1) Hypertensive urgency: (2) Acute on chronic diastolic (congestive) heart failure: (3) Hypoxia: (4) Mild mitral stenosis: Patient admitted for acute respiration distress secondary to acute diastolic HF exacerbation, with hypertensive urgency and possible underlying pneumonia. Agree with IV diuresis with Lasix 40 mg IV BID today. Pending outputs and response, consider Furosemide 80 mg IV BID. monitor I+O's. Daily weight. It appears she was up 11 kg since discharge 2 weeks ago (if weights are considered accurate). Resume oral home medications including Amlodipine, clonidine. Resume hydralazine, previously on 100 mg TID. Will resume lower dose hydralazine 25 mg TID and titrate as tolerated. She was previously taking Isordil, but currently has nitro patch in place. Will hold off on oral nitrates. Hopefully BP will trend down with IV diuresis as well. Avoid hypotension Her recent echo revealed preserved LV systolic function with moderate valvular heart disease. I do not feel repeat echo would change treatment course at this time. Case discussed with Dr. Saha. Will follow. Supervising Physician Co-Signing Physician Notes Patient seen and examined with Sarita Sewell PA-C. Agree with findings and assessment as above. it does appear that her chest discomfort is due to hypertensive urgency. Agree with above medication changes. We will continue to follow closely. History of Present Illness Reason for Consultation: CHF; Hypertensive urgency Requesting Physician: Ms. Garo PA-C Attending Physician: Dr. Saah History of Present Illness Patient is an 89-year-old female with past history significant for chronic diastolic heart failure secondary to valvular heart disease with moderate mitral stenosis and mild aortic stenosis, difficult to control hypertension, chronic left bundle branch block, history of splenic infarct in 2019 on chronic anticoagulation with low-dose Eliquis, chronic kidney disease, chart history of coronary artery disease. Patient was recently evaluated at [facility] approximately [address] Bobby German during an admission for hypertensive urgency and CHF. At that time she had echocardiogram which demonstrated preserved LV systolic function with ejection fraction 55 to 60%, moderate MR, mild to moderate MS, mild . At that time, blood pressure medications were adjusted including addition of hydralazine 100 mg 3 times daily, isosorbide dinitrate was increased to 10 mg 3 times daily, along with home doses of amlodipine 10 mg daily, clonidine 0.1 mg twice daily and furosemide 20 mg daily. Per hospital notes from last admission, family and patient preferred conservative therapies and palliative care. Patient was admitted this morning with complaints of worsening shortness of breath/respiratory distress. On admission, chest x-ray revealed small bilateral pleural effusions as well as bilateral infiltrates suggestive of possible pneumonia. She was started on BiPAP therapy with IV diuresis. Her blood pressure was significantly elevated on arrival. Patient had yet to take her morning medications and oral home medications were resumed. It appears hydralazine was not yet initiated per review of medications. Labs demonstrate stable renal function with elevated BNP and mildly elevated troponin at 0.19. Per review of weights, it appears she is up 11 kg since discharge 2 weeks ago, if weights are deemed accurate. At time of consult, patient resting comfortably with BiPAP. It does appear she has mild labored breathing. Review of systems is limited. She has lower extremity edema to knees. Diffuse crackles noted bilaterally. She denies chest pain by shaking her head. She reports her breathing has improved since admission several hours ago. Allergies Allergy/AdvReac Type Severity Reaction Status Date / Time Penicillins Allergy Intermediate Rash Unverified 09/26/20 08:04 Quinolones Allergy Intermediate Rash Unverified 09/26/20 08:04 aspirin AdvReac Mild burning in Unverified 09/26/20 08:04 stomach Home Medications Medication Instructions Recorded Confirmed Type amlodipine 10 mg PO QAM 03/31/19 09/26/20 History atorvastatin 20 mg PO QAM #30 tab 04/12/19 09/26/20 Rx hydralazine 100 mg PO TID #90 tab 04/12/19 09/26/20 Rx pantoprazole 40 mg PO DAILYBB 09/06/20 09/26/20 History sennosides-docusate sodium [Senna 1 tab-cap PO BID 09/06/20 09/26/20 History with Docusate Sodium] Eliquis 2.5 mg PO BID #0 tab 09/09/20 09/26/20 Rx furosemide [Lasix] 20 mg PO QAM 09/26/20 09/26/20 History isosorbide dinitrate 10 mg PO TID 09/26/20 09/26/20 History potassium chloride [Klor-Con M20] 20 meq PO QAM 09/26/20 09/26/20 History clonidine HCl 0.2 mg PO BID #120 tab 10/01/20 Rx Patient History Medical History CHF due to valvular disease Coronary artery disease DM type 2 (diabetes mellitus, type 2) Do not resuscitate status Dyslipidemia Goals of care, counseling/discussion LBBB (left bundle branch block) Mild aortic stenosis Mild mitral stenosis Mitral regurgitation Surgical History H/O repair of left rotator cuff H/O varicose vein stripping History of appendectomy History of hysterectomy Social History Smoking Status: Former smoker Tobacco Type: Cigarettes Hx Alcohol Use: No Hx Substance Use: No Preferred Language: Malay 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 Ability: Effective Pyrotechnic Mixer Required: No Beliefs That Will Affect Care: None marital status: / Current Living Situation: Family Current Living Situation Comment: lives w/ dtr Other Information That Helps Us Care for You: No Feels Safe at Home: Yes Safety Concerns: Feels Safe At This Time Assistive Devices: Glasses and Prosthesis Review of Systems Review of Systems: Other (Limited due to respiratory status and BIPAP in place) Physical Exam Constitutional: + ill appearing and + frail appearing Neck: trachea midline, no thyromegaly normal visual inspection Respiratory: + respiratory distress, + labored breathing and + uses accessory muscles Auscultation: + crackles and + wheezes Cardiovascular: Rate/Rhythm: regular rate and regular rhythm Heart Sounds: normal S1, normal S2 and + murmur (2 out of 6 systolic murmur left sternal border) Vessels: + JVD Extremities: + edema (2+ lower extremity edema to knees) Gastrointestinal (Abdomen): normal bowel sounds, soft, nontender, no hepatosplenomegaly Psychiatric: Orientation: alert, oriented to person and oriented to place Results & Data ([facility]) Vital Signs (Past 12 Hours) Vital Signs Temp Pulse Pulse Resp BP BP Pulse Ox 09/26/20 09:47 36.4 C L 90 26 H 219/86 H 98 09/26/20 09:45 90 41 H 100 09/26/20 09:12 86 17 191/72 H 100 09/26/20 08:51 72 17 188/66 H 09/26/20 08:05 70 17 144/65 H 09/26/20 07:52 84 18 174/64 H 09/26/20 07:25 82 18 201/74 H 09/26/20 07:05 103 H 34 H 09/26/20 06:50 85 17 231/118 H 09/26/20 06:47 36.9 C 98 H 30 H 240/73 H 90 Laboratory Results 09/26/20 09/26/20 09/26/20 Range/Units 09:57 07:53 07:46 WBC (4.8-10.8) K/uL RBC (4.2-5.4) M/uL Hgb (12.0-16.0) g/dL Hct (37-47) % MCV (80-100) fL MCH (25-34) pg MCHC (32-36) g/dL RDW Std Deviation (36.4-46.3) fL RDW Coeff of Dion (11.5-14.5) % Plt Count (130-400) K/uL MPV (7.4-10.4) fL Immature Gran % (Auto) % Neut % (Auto) % Lymph % (Auto) % [place] % (Auto) % Eos % (Auto) % Baso % (Auto) % Neut # (Auto) (1.4-6.5) K/uL Lymph # (Auto) (1.2-3.4) K/uL [place] # (Auto) (0.11-0.59) K/uL Eos # (Auto) (0-0.5) K/uL Baso # (Auto) (0-0.2) K/uL Immature Gran # (Auto) (0.00-0.02) K/uL Sodium (136-145) mmol/L Potassium (3.5-5.1) mmol/L Chloride (98-107) mmol/L Carbon Dioxide (21-32) mmol/L Anion Gap (3-11) BUN (7-18) mg/dl Creatinine (0.6-1.2) mg/dl Est Cr Clr Drug Dosing ml/min Est GFR ( Amer) ml/min Est GFR (Non-Af Amer) ml/min BUN/Creatinine Ratio (10-20) Glucose (70-99) mg/dl Lactate 1.4 (0.4-2.0) mmol/L Calcium (8.5-10.1) mg/dl Magnesium (1.8-2.4) mg/dl Total Bilirubin (0.2-1) mg/dl AST (15-37) U/L ALT (12-78) U/L Alkaline Phosphatase (45-117) U/L Troponin I (0-0.045) ng/ml NT-Pro-B Natriuret Pep (0-1800) pg/ml Total Protein (6.4-8.2) gm/dl Albumin (3.4-5.0) gm/dl Globulin (2.5-4.0) gm/dl Albumin/Globulin Ratio (0.9-2) Procalcitonin < 0.05 (0-0.5) ng/ml Urine Color Yellow Urine Appearance Clear (Clear) Urine pH 5.5 (4.5-7.5) Ur Specific [place] 1.017 (1.000-1.030) Urine Protein 4+ H (Negative) Urine Glucose (UA) Trace H (Negative) Urine Ketones Negative (Negative) Urine Blood Negative (Negative) Urine Nitrite Negative (Negative) Urine Bilirubin Negative (Negative) Urine Urobilinogen Negative (Negative) Ur Leukocyte Esterase Negative (Negative) Urine WBC (Auto) 1-5 (0-5) /hpf Urine RBC (Auto) 0-4 (0-4) /hpf U Hyaline Cast (Auto) 5-10 H (0-5) /lpf U Epithel Cells (Auto) >30 H (0-5) /lpf Urine Bacteria (Auto) Negative (Negative) COVID-19 Eval Order SARS-CoV-2 (PCR) (Negative) 09/26/20 09/26/20 09/26/20 Range/Units 07:44 07:44 07:07 WBC 12.26 H (4.8-10.8) K/uL RBC 4.66 (4.2-5.4) M/uL Hgb 11.2 L (12.0-16.0) g/dL Hct 34.9 L (37-47) % MCV 74.9 L (80-100) fL MCH 24.0 L (25-34) pg MCHC 32.1 (32-36) g/dL RDW Std Deviation 47.5 H (36.4-46.3) fL RDW Coeff of Dion 17.3 H (11.5-14.5) % Plt Count 302 (130-400) K/uL MPV 8.7 (7.4-10.4) fL Immature Gran % (Auto) 0.7 % Neut % (Auto) 80.5 % Lymph % (Auto) 7.8 % [place] % (Auto) 9.5 % Eos % (Auto) 1.3 % Baso % (Auto) 0.2 % Neut # (Auto) 9.88 H (1.4-6.5) K/uL Lymph # (Auto) 0.96 L (1.2-3.4) K/uL [place] # (Auto) 1.16 H (0.11-0.59) K/uL Eos # (Auto) 0.16 (0-0.5) K/uL Baso # (Auto) 0.02 (0-0.2) K/uL Immature Gran # (Auto) 0.08 H (0.00-0.02) K/uL Sodium 139 (136-145) mmol/L Potassium 3.6 (3.5-5.1) mmol/L Chloride 109 H (98-107) mmol/L Carbon Dioxide 20 L (21-32) mmol/L Anion Gap 10.0 (3-11) BUN 32 H (7-18) mg/dl Creatinine 1.63 H (0.6-1.2) mg/dl Est Cr Clr Drug Dosing 21.1 ml/min Est GFR ( Amer) 32.0 ml/min Est GFR (Non-Af Amer) 27.6 ml/min BUN/Creatinine Ratio 19.4 (10-20) Glucose 289 H (70-99) mg/dl Lactate (0.4-2.0) mmol/L Calcium 8.5 (8.5-10.1) mg/dl Magnesium 2.3 (1.8-2.4) mg/dl Total Bilirubin 0.5 (0.2-1) mg/dl AST 15 (15-37) U/L ALT 13 (12-78) U/L Alkaline Phosphatase 145 H (45-117) U/L Troponin I 0.193 H* (0-0.045) ng/ml NT-Pro-B Natriuret Pep 33705 H (0-1800) pg/ml Total Protein 6.6 (6.4-8.2) gm/dl Albumin 3.2 L (3.4-5.0) gm/dl Globulin 3.4 (2.5-4.0) gm/dl Albumin/Globulin Ratio 0.9 (0.9-2) Procalcitonin (0-0.5) ng/ml Urine Color Urine Appearance (Clear) Urine pH (4.5-7.5) Ur Specific [place] (1.000-1.030) Urine Protein (Negative) Urine Glucose (UA) (Negative) Urine Ketones (Negative) Urine Blood (Negative) Urine Nitrite (Negative) Urine Bilirubin (Negative) Urine Urobilinogen (Negative) Ur Leukocyte Esterase (Negative) Urine WBC (Auto) (0-5) /hpf Urine RBC (Auto) (0-4) /hpf U Hyaline Cast (Auto) (0-5) /lpf U Epithel Cells (Auto) (0-5) /lpf Urine Bacteria (Auto) (Negative) COVID-19 Eval Order SARS-CoV-2 (PCR) NEGATIVE (Negative) 09/26/20 Range/Units 07:07 WBC (4.8-10.8) K/uL RBC (4.2-5.4) M/uL Hgb (12.0-16.0) g/dL Hct (37-47) % MCV (80-100) fL MCH (25-34) pg MCHC (32-36) g/dL RDW Std Deviation (36.4-46.3) fL RDW Coeff of Dion (11.5-14.5) % Plt Count (130-400) K/uL MPV (7.4-10.4) fL Immature Gran % (Auto) % Neut % (Auto) % Lymph % (Auto) % [place] % (Auto) % Eos % (Auto) % Baso % (Auto) % Neut # (Auto) (1.4-6.5) K/uL Lymph # (Auto) (1.2-3.4) K/uL [place] # (Auto) (0.11-0.59) K/uL Eos # (Auto) (0-0.5) K/uL Baso # (Auto) (0-0.2) K/uL Immature Gran # (Auto) (0.00-0.02) K/uL Sodium (136-145) mmol/L Potassium (3.5-5.1) mmol/L Chloride (98-107) mmol/L Carbon Dioxide (21-32) mmol/L Anion Gap (3-11) BUN (7-18) mg/dl Creatinine (0.6-1.2) mg/dl Est Cr Clr Drug Dosing ml/min Est GFR ( Amer) ml/min Est GFR (Non-Af Amer) ml/min BUN/Creatinine Ratio (10-20) Glucose (70-99) mg/dl Lactate (0.4-2.0) mmol/L Calcium (8.5-10.1) mg/dl Magnesium (1.8-2.4) mg/dl Total Bilirubin (0.2-1) mg/dl AST (15-37) U/L ALT (12-78) U/L Alkaline Phosphatase (45-117) U/L Troponin I (0-0.045) ng/ml NT-Pro-B Natriuret Pep (0-1800) pg/ml Total Protein (6.4-8.2) gm/dl Albumin (3.4-5.0) gm/dl Globulin (2.5-4.0) gm/dl Albumin/Globulin Ratio (0.9-2) Procalcitonin (0-0.5) ng/ml Urine Color Urine Appearance (Clear) Urine pH (4.5-7.5) Ur Specific [place] (1.000-1.030) Urine Protein (Negative) Urine Glucose (UA) (Negative) Urine Ketones (Negative) Urine Blood (Negative) Urine Nitrite (Negative) Urine Bilirubin (Negative) Urine Urobilinogen (Negative) Ur Leukocyte Esterase (Negative) Urine WBC (Auto) (0-5) /hpf Urine RBC (Auto) (0-4) /hpf U Hyaline Cast (Auto) (0-5) /lpf U Epithel Cells (Auto) (0-5) /lpf Urine Bacteria (Auto) (Negative) COVID-19 Eval Order Covid19 at [facility] SARS-CoV-2 (PCR) (Negative) Diagnostic Findings Telemetry reviewed - NSR with conduction delay, Mild sinus tachycardia upon arrival, Heart rates improving EKG on admission: Sinus tach, LBBB (known chronic). no change from previous Chest xray on admission: IMPRESSION: Interval development of patchy bibasilar airspace opacities and trace bilateral pleural effusions. This favors a pneumonia and could be secondary to aspiration or viral process Medications Administered Medications amlodipine 10 mg PO QAM 03/31/19 [History Confirmed 09/26/20] atorvastatin 20 mg PO QAM #30 tab 04/12/19 [Rx Confirmed 09/26/20] hydralazine 100 mg PO TID #90 tab 04/12/19 [Rx Confirmed 09/26/20] clonidine HCl 0.1 mg PO BID 09/06/20 [History Confirmed 09/26/20] pantoprazole 40 mg PO DAILYBB 09/06/20 [History Confirmed 09/26/20] sennosides-docusate sodium [Senna with Docusate Sodium] 1 tab-cap PO BID 09/06/20 [History Confirmed 09/26/20] Eliquis 2.5 mg PO BID #0 tab 09/09/20 [Rx Confirmed 09/26/20] furosemide [Lasix] 20 mg PO QAM 09/26/20 [History Confirmed 09/26/20] isosorbide dinitrate 10 mg PO TID 09/26/20 [History Confirmed 09/26/20] potassium chloride [Klor-Con M20] 20 meq PO QAM 09/26/20 [History Confirmed 09/26/20] Home Medications Acetaminophen (Acetaminophen 325 Mg Tab) 650 mg PO Q4H PRN PRN Reason: Moderate Pain Stop: 10/26/20 09:51 Amlodipine Besylate (Amlodipine Besylate 5 Mg Tab) 10 mg PO QAM [facility] Stop: 10/26/20 09:59 Apixaban (Apixaban 2.5 Mg Tab) 2.5 mg PO BID [facility] Stop: 10/26/20 09:59 Atorvastatin Calcium (Atorvastatin 20 Mg Tab) 20 mg PO QAM [facility] Stop: 10/27/20 08:59 Clonidine HCl (Clonidine Hcl 0.1 Mg Tab) 0.1 mg PO BID [facility] Stop: 10/26/20 09:59 Furosemide 40 mg/ Syringe 4 mls @ 4 mls/min IV [id number] [facility] Stop: 10/26/20 09:59 Ondansetron HCl (Ondansetron Inj 2 Mg/Ml 2 Ml Vial) 4 mg IV Q4H PRN PRN Reason: Nausea And Vomiting Stop: 10/26/20 09:51 Potassium Chloride (Potassium Chloride Crtab 20 Meq Tabcr) 20 meq PO QAM [facility] Stop: 10/27/20 08:59
[2020-09-26] MEDS: APIXABAN 2.5 MG TAB PO SCH ×2 (11:34→20:23)
[2020-09-26] MEDS: amLODIPine BESYLATE 5 MG TAB PO SCH (11:35)
[2020-09-26] MEDS: cloNIDine HCL 0.1 MG TAB PO SCH ×2 (11:35→20:24)
[2020-09-26] MEDS: hydrALAZINE HCL 25 MG TAB PO SCH ×2 (14:47→20:24)
--- NOTE | 2020-09-26 15:41 | Electrocardiogram Report ---
Test Reason : Blood Pressure : / mmHG Vent. Rate : 112 BPM Atrial Rate : 112 BPM P-R Int : 144 ms QRS Dur : 152 ms QT Int : 376 ms P-R-T Axes : 061 -18 130 degrees QTc Int : 513 ms Poor data quality, interpretation may be adversely affected Sinus tachycardia Possible Left atrial enlargement Left bundle branch block Abnormal ECG When compared with ECG of 06-SEP-2020 11:11, No significant change was found Confirmed by Alexys Goins ([id number]) on 09/26/2020 3:41:13 PM Referred By: Confirmed By:Alexys Goins
[2020-09-26] MEDS: FUROSEMIDE 80 MG in SYRINGE 0 ML IV SCH (17:34)
[2020-09-27 06:52] LABS: Basophils # (auto) 0.03 K/uL (0-0.2); Basophils % (auto) 0.4 %; Eosinophils # (auto) 0.12 K/uL (0-0.5); Eosinophils % (auto) 1.6 %; Hematocrit (blood only) 31.5 % (37-47); Hemoglobin 10.1 g/dL (12.0-16.0); Immature Granulocytes # (auto) 0.03 K/uL (0.00-0.02); Immature Granulocytes % (auto) 0.4 %; Lymphocytes # (auto) 1.14 K/uL (1.2-3.4); Lymphocytes % (auto) 14.8 %; Mean Corpuscular Hemoglobin 24.1 pg (25-34); Mean Corpuscular Hgb Conc 32.1 g/dL (32-36); Mean Corpuscular Volume 75.2 fL (80-100); Mean Platelet Volume 8.8 fL (7.4-10.4); Monocytes % (auto) 14.3 %; Neutrophils # (auto) 5.29 K/uL (1.4-6.5); Neutrophils % (auto) 68.5 %; Platelet Count 271 K/uL (130-400); RDW Standard Deviation 46.6 fL (36.4-46.3); Red Blood Count 4.19 M/uL (4.2-5.4); White Blood Count 7.71 K/uL (4.8-10.8)
[2020-09-27 07:20] LABS: Albumin Level 2.8 gm/dl (3.4-5.0); BUN Creatinine Ratio 18.6 (10-20); Calcium 8.2 mg/dl (8.5-10.1); Creatinine Clr Calc Pharmacy 19.7 ml/min; Est GFR (African American) 30.9 ml/min; Est GFR (Non-African American) 26.7 ml/min; Magnesium 2.1 mg/dl (1.8-2.4); Potassium 3.2 mmol/L (3.5-5.1)
[2020-09-27 07:23] LABS: Albumin Globulin Ratio 0.9 (0.9-2); Bilirubin,Total 0.5 mg/dl (0.2-1); Globulin 3.1 gm/dl (2.5-4.0); Phosphorus 4.4 mg/dl (2.5-4.9); Total Protein 5.9 gm/dl (6.4-8.2)
[2020-09-27] MEDS: APIXABAN 2.5 MG TAB PO SCH ×2 (07:45→20:16)
[2020-09-27] MEDS: cloNIDine HCL 0.1 MG TAB PO SCH ×2 (07:45→19:51)
[2020-09-27] MEDS: hydrALAZINE HCL 25 MG TAB PO SCH (07:45)
[2020-09-27] MEDS: amLODIPine BESYLATE 5 MG TAB PO SCH (07:46)
[2020-09-27] MEDS: ATORVASTATIN 20 MG TAB PO SCH (07:46)
[2020-09-27] MEDS: POTASSIUM CHLORIDE CRTAB 20 MEQ TABCR PO SCH (07:46)
[2020-09-27] MEDS: FUROSEMIDE 80 MG in SYRINGE 0 ML IV SCH (07:46)
[2020-09-27] MEDS ORDERED: POTASSIUM CHLORIDE CRTAB 20 MEQ TABCR PO STA (08:51)
[2020-09-27] MEDS ORDERED: ISOSORBIDE DINITRATE 10 MG TAB PO ONE (10:00)
[2020-09-27] MEDS ORDERED: hydrALAZINE HCL 25 MG TAB PO ONE (10:00)
[2020-09-27] MEDS: ISOSORBIDE DINITRATE 10 MG TAB PO SCH ×2 (12:09→16:04)
--- NOTE | 2020-09-27 13:35 | Hospitalist Progress Note ---
Date of Service September 27, 2020 Assessment & Plan (1) Acute on chronic diastolic (congestive) heart failure: -History of diastolic/valvular dysfunction -CXR: Interval development of patchy bibasilar airspace opacities and trace bilateral pleural effusions. This favors a pneumonia and could be secondary to aspiration or viral process. -Troponin is elevated 0.193 and went up to 0.370 likely secondary to strain -Has been getting Lasix 80 mg twice daily -Daily weights, strict I's/O's, fluid restriction -Last echo done on 09/08/2020, consider repeat limited echo, LVEF 55 to 60% at that time with moderate MR, moderate mitral stenosis, mild aortic valve stenosis. -Appreciate cardiology input and recommendation -We will decrease the Lasix doses to 40 mg twice daily from today (2) Hypertensive urgency: -Blood pressure of 230/118 upon arrival to the ER, given 1 inch Nitropaste, Ativan, morphine, IV hydralazine with some improvement. -Will resume home clonidine and amlodipine -Isordil has been started and hydralazine dose increased to 25 mg 3 times daily (3) Pulmonary edema: -CXR as above, possibly concerning for pneumonia -Patient with rigors during exam, will check blood cultures, lactic acid and pro calcitonin to rule out infectious source, pending labs will possibly start on ceftriaxone and doxycycline -Afebrile, WBC = 12.26 -Received intravenous Lasix 80 mg twice daily and will change to 40 mg twice daily from today (4) Coronary artery disease: -History of such, continue statin, antihypertensives as above -No acute cardiac symptoms and doubt any ACS (5) Dyslipidemia: -Continue atorvastatin 20 mg daily (6) Hypertension: -As above, history of being difficult to control, attempt to get back to her home medications. (7) Mild mitral stenosis: (8) Mild aortic stenosis: (9) Mitral regurgitation: (10) DM type 2 (diabetes mellitus, type 2): -A1c = 6.7 on 09/07/2020 -ISS with Accu-Cheks ACHS and for now Q6H while n.p.o. (11) Splenic infarct: -[place] to be due to atheroembolic, or cardioembolic, was discharged on Coumadin in April 2019, at some point time was transitioned to Eliquis, likely due to ease of administration. -Continue Eliquis 2.5 mg p.o. twice daily due to weight, age and renal function. (12) CKD (chronic kidney disease), stage III: -Creatinine 1.63, BUN 32, appears that her baseline creatinine is 1.3-1.4, monitor with a.m. labs with aggressive diuresis -Lu in place -Renally dose medications -Creatinine remains stable DVT PPx: - Casper payne CODE: DNR/DNI Dispo: From home, likely to remain in the hospital x 1-2 days Admission and Anticipated Discharge Date Admission Date: September 26, 2020 Subjective 09/27/20 The patient was seen and examined in telemetry unit She has been feeling a lot better today Denies any chest pain, palpitation or shortness of breath at rest Leg swelling has improved Noted to have high blood pressure Review of Systems Review of Systems: Other All systems reviewed and are unremarkable except as noted below Respiratory: no cough and no dyspnea Cardiovascular: no chest pain and no palpitations Physical Exam Physical Exam: Lying in bed comfortably Constitutional: average body habitus; not ill appearing Eyes: PERRL, conjunctivae normal, anicteric sclerae ENMT: external ear and nose normal, oropharynx normal Neck: trachea midline, no thyromegaly Respiratory: no respiratory distress Auscultation: + diminished lung sounds and + crackles (Bibasilar crackles) Cardiovascular: Rate/Rhythm: regular rate and regular rhythm Heart Sounds: + murmur (2/6 ejection systolic murmur over the precordium) Extremities: + edema (Trace edema bilaterally) Gastrointestinal (Abdomen): Inspection/Auscultation: normal bowel sounds; abdomen not distended Percussion/Palpation: abdomen soft; abdomen nontender Musculoskeletal: No acute arthritis in any joint Neurologic: Alert, awake and oriented x3. Generally weak but no focal neuro deficit Results & Data Results & Data ([facility]) Vital Signs (Past 12 Hours) Vital Signs Temp Pulse Pulse Resp BP Pulse Ox 09/27/20 11:09 36.7 C 69 19 185/51 H 94 09/27/20 09:24 198/66 H 09/27/20 08:00 60 09/27/20 07:18 36.4 C L 66 19 207/63 H 98 09/27/20 03:47 36.9 C 58 L 18 184/63 H 96 Laboratory Results Short CBC 09/27/20 Range/Units 05:37 WBC 7.71 (4.8-10.8) K/uL Hgb 10.1 L (12.0-16.0) g/dL Hct 31.5 L (37-47) % Plt Count 271 (130-400) K/uL BMP 09/27/20 05:37 Sodium 141 Potassium 3.2 L Chloride 105 Carbon Dioxide 31 BUN 31 H Creatinine 1.68 H Glucose 105 H Calcium 8.2 L Cardiac Enzymes 09/26/20 Range/Units 14:47 Troponin I 0.370 H* (0-0.045) ng/ml Liver Function 09/27/20 Range/Units 05:37 Total Bilirubin 0.5 (0.2-1) mg/dl AST 14 L (15-37) U/L ALT 12 (12-78) U/L Alkaline Phosphatase 122 H (45-117) U/L Albumin 2.8 L (3.4-5.0) gm/dl Medications Administered Current Inpatient Medications Acetaminophen (Acetaminophen 325 Mg Tab) 650 mg PO Q4H PRN PRN Reason: Moderate Pain Stop: 10/26/20 09:51 Amlodipine Besylate (Amlodipine Besylate 5 Mg Tab) 10 mg PO QAM [facility] Stop: 10/26/20 09:59 Last Admin: 09/27/20 07:46 Dose: 10 mg Documented by: Apixaban (Apixaban 2.5 Mg Tab) 2.5 mg PO BID [facility] Stop: 10/26/20 09:59 Last Admin: 09/27/20 07:45 Dose: 2.5 mg Documented by: Atorvastatin Calcium (Atorvastatin 20 Mg Tab) 20 mg PO QAM [facility] Stop: 10/27/20 08:59 Last Admin: 09/27/20 07:46 Dose: 20 mg Documented by: Clonidine HCl (Clonidine Hcl 0.1 Mg Tab) 0.1 mg PO BID [facility] Stop: 10/26/20 09:59 Last Admin: 09/27/20 07:45 Dose: 0.1 mg Documented by: Hydralazine HCl (Hydralazine Tab 50 Mg Tab) 100 mg PO TID [facility] Stop: 10/27/20 13:59 Furosemide 80 mg/ Syringe 8 mls @ 4 mls/min IV BID17 [facility] Stop: 10/26/20 16:59 Last Admin: 09/27/20 07:46 Dose: 4 mls/min Documented by: Isosorbide Dinitrate (Isosorbide Dinitrate 10 Mg Tab) 10 mg PO TID@0700,1200,1700 [facility] Stop: 10/27/20 11:59 Last Admin: 09/27/20 12:09 Dose: 10 mg Documented by: Ondansetron HCl (Ondansetron Inj 2 Mg/Ml 2 Ml Vial) 4 mg IV Q4H PRN PRN Reason: Nausea And Vomiting Stop: 10/26/20 09:51 Potassium Chloride (Potassium Chloride Crtab 20 Meq Tabcr) 20 meq PO QAM [facility] Stop: 10/27/20 08:59 Last Admin: 09/27/20 07:46 Dose: 20 meq Documented by: (1) Hypertension Hypertension type: unspecified Qualified Code(s): I10 - Essential (primary) hypertension
[2020-09-27] MEDS ORDERED: hydrALAZINE TAB 50 MG TAB PO SCH (14:00)
[2020-09-27] MEDS: FUROSEMIDE 40 MG in SYRINGE 0 ML IV SCH (16:04)
[2020-09-27] MEDS: hydrALAZINE TAB 50 MG TAB PO SCH ×2 (16:04→19:51)
[2020-09-28 06:48] LABS: Hematocrit (blood only) 32.9 % (37-47); Hemoglobin 10.5 g/dL (12.0-16.0); Mean Corpuscular Hemoglobin 24.4 pg (25-34); Mean Corpuscular Hgb Conc 31.9 g/dL (32-36); Mean Corpuscular Volume 76.3 fL (80-100); Mean Platelet Volume 8.8 fL (7.4-10.4); Platelet Count 291 K/uL (130-400); RDW Coefficient of Variation 16.6 % (11.5-14.5); RDW Standard Deviation 46.7 fL (36.4-46.3); Red Blood Count 4.31 M/uL (4.2-5.4); White Blood Count 6.66 K/uL (4.8-10.8)
[2020-09-28 07:25] LABS: Albumin Level 2.9 gm/dl (3.4-5.0); BUN Creatinine Ratio 18.8 (10-20); Creatinine Clr Calc Pharmacy 23.3 ml/min; Est GFR (African American) 37.9 ml/min; Est GFR (Non-African American) 32.7 ml/min; Magnesium 2.1 mg/dl (1.8-2.4); Potassium 3.2 mmol/L (3.5-5.1)
[2020-09-28 07:33] LABS: Albumin Globulin Ratio 0.9 (0.9-2); Bilirubin,Total 0.7 mg/dl (0.2-1); Globulin 3.2 gm/dl (2.5-4.0); Phosphorus 3.4 mg/dl (2.5-4.9); Total Protein 6.1 gm/dl (6.4-8.2)
[2020-09-28] MEDS: ISOSORBIDE DINITRATE 10 MG TAB PO SCH ×3 (07:40→16:31)
[2020-09-28] MEDS: APIXABAN 2.5 MG TAB PO SCH ×2 (07:41→20:34)
[2020-09-28] MEDS: cloNIDine HCL 0.1 MG TAB PO SCH ×2 (07:41→20:34)
[2020-09-28] MEDS: hydrALAZINE TAB 50 MG TAB PO SCH ×3 (07:41→19:33)
[2020-09-28] MEDS: ATORVASTATIN 20 MG TAB PO SCH (07:41)
[2020-09-28] MEDS: POTASSIUM CHLORIDE CRTAB 20 MEQ TABCR PO SCH (07:42)
[2020-09-28] MEDS: FUROSEMIDE 40 MG in SYRINGE 0 ML IV SCH ×2 (07:42→16:31)
[2020-09-28] MEDS: amLODIPine BESYLATE 5 MG TAB PO SCH (07:42)
[2020-09-28] MEDS ORDERED: POTASSIUM CHLORIDE CRTAB 20 MEQ TABCR PO STA (08:01)
[2020-09-28] MEDS ORDERED: cloNIDine HCL 0.1 MG TAB PO ONE (10:29)
[2020-09-28] MEDS ORDERED: LORazepam 0.25 MG/0.5 ML VIAL IV PRN (10:47)
[2020-09-28] MEDS ORDERED: LORazepam 2 MG/4 ML VIAL ONE ×2 (10:50→11:09)
--- NOTE | 2020-09-28 10:56 | Cardiology Progress Note ---
Date of Service September 28, 2020 Assessment & Plan (1) Hypertensive urgency: (2) Acute on chronic diastolic (congestive) heart failure: (3) Hypoxia: (4) Mild mitral stenosis: Patient admitted for acute respiration distress secondary to acute diastolic HF exacerbation, with hypertensive urgency and possible underlying pneumonia. Diuresing well. Would give p.m. dose of IV Lasix and then hold. Reevaluate volume status in the a.m. Supplement potassium to maintain greater than 4 In terms of outpatient diuretics would recommend 60 mg p.o. daily with a as needed afternoon dose if necessary Blood pressures remain elevated. Rather unusual outpatient antihypertensive regimen. We will increase clonidine to 0.2 mg twice daily. Continue with hydralazine, Isordil and amlodipine. Her recent echo revealed preserved LV systolic function with moderate valvular heart disease. I do not feel repeat echo would change treatment course at this time. (5) Muscle spasm: IV Ativan 0.25 mg given at bedside. Discussed this finding with primary team and agree with neurology consultation. Admission and Anticipated Discharge Date Admission Date: September 26, 2020 Subjective Patient seen and examined, chart reviewed. Continues to diurese well but blood pressure remains high despite medication titration. During the course of the interview the patient developed what appeared to be full body spasms which were very painful and distressing for her. She states that she has been having these at home for approximately the last 6 months but this is the first episode that occurred in the hospital. Telemetry reviewed: Normal sinus rhythm without arrhythmia. Review of Systems Review of Systems: All systems reviewed & are unremarkable except as noted in HPI & below Physical Exam Physical Exam: General: Awake, alert and oriented x 3. No acute distress. HEENT: Normocephalic, atraumatic. Pupils equal, round and reactive to light and accommodation. Extraocular muscles are intact. Anicteric sclera. Moist mucous membranes. Neck: No JVD. No bruit. Cardiovascular: Regular. Positive S-4. Normal S-1 and S-2. No S-3. No murmurs or rubs. Pulmonary: Clear to auscultation B/L. No rales, rhonchi or wheezing Abdomen: Bowel sounds x 4, soft. No rebound, guarding or tenderness. No organomegaly. Extremities: No clubbing, cyanosis or edema. +2 pedal pulses bilaterally. Skin: Warm and dry. Results & Data ([facility]) Vital Signs (Past 12 Hours) Vital Signs Temp Pulse Pulse Resp BP BP Pulse Ox 09/28/20 10:50 36.7 C 82 18 190/64 H 92 09/28/20 07:31 65 09/28/20 07:16 36.8 C 64 20 190/66 H 96 09/28/20 02:31 36.8 C 60 18 166/64 H 96 09/28/20 00:00 Pulse Ox 09/28/20 10:50 09/28/20 07:31 09/28/20 07:16 09/28/20 02:31 09/28/20 00:00 93
[2020-09-28] MEDS ORDERED: LORazepam 50 MG in D5W 250ML IN *POLYOLEFIN BAG* 25 ML IV SCH (11:00)
--- NOTE | 2020-09-28 11:10 | Hospitalist Progress Note ---
Date of Service September 28, 2020 Assessment & Plan (1) Acute on chronic diastolic (congestive) heart failure: -History of diastolic/valvular dysfunction -CXR: Interval development of patchy bibasilar airspace opacities and trace bilateral pleural effusions. This favors a pneumonia and could be secondary to aspiration or viral process. -Troponin is elevated 0.193 and went up to 0.370 likely secondary to strain -Has been getting Lasix 80 mg twice daily -Daily weights, strict I's/O's, fluid restriction -Last echo done on 09/08/2020, consider repeat limited echo, LVEF 55 to 60% at that time with moderate MR, moderate mitral stenosis, mild aortic valve stenosis. -Appreciate cardiology input and recommendation -We will decrease the Lasix doses to 40 mg twice daily from today Abnormal movements involving the extremities mainly Has been having these symptoms for more than 6 months with episodic attack Each attack consisting abnormal jerking movements involving the extremities and trunk which lasted for about an hour Following the attack she feels weak and tired but does not go to sleep Has had investigation including MRI and EEG in past without any evidence of cause Received 0.5 mg Ativan today with some improvement Appreciate neurology input and recommendation (2) Hypertensive urgency: -Blood pressure of 230/118 upon arrival to the ER, given 1 inch Nitropaste, Ativan, morphine, IV hydralazine with some improvement. -Will resume home clonidine and amlodipine -Isordil has been started and hydralazine dose increased to 25 mg 3 times daily -Blood pressure remains elevated and clonidine doses have been increased (3) Pulmonary edema: -CXR as above, possibly concerning for pneumonia -Patient with rigors during exam, will check blood cultures, lactic acid and pro calcitonin to rule out infectious source, pending labs will possibly start on ceftriaxone and doxycycline -Afebrile, WBC = 12.26 -Received intravenous Lasix 80 mg twice daily and will change to 40 mg twice daily from today (4) Coronary artery disease: -History of such, continue statin, antihypertensives as above -No acute cardiac symptoms and doubt any ACS (5) Dyslipidemia: -Continue atorvastatin 20 mg daily (6) Hypertension: -As above, history of being difficult to control, attempt to get back to her home medications. (7) Mild mitral stenosis: (8) Mild aortic stenosis: (9) Mitral regurgitation: (10) DM type 2 (diabetes mellitus, type 2): -A1c = 6.7 on 09/07/2020 -ISS with Accu-Cheks ACHS and for now Q6H while n.p.o. (11) Splenic infarct: -[place] to be due to atheroembolic, or cardioembolic, was discharged on Coumadin in April 2019, at some point time was transitioned to Eliquis, likely due to ease of administration. -Continue Eliquis 2.5 mg p.o. twice daily due to weight, age and renal function. (12) CKD (chronic kidney disease), stage III: -Creatinine 1.63, BUN 32, appears that her baseline creatinine is 1.3-1.4, monitor with a.m. labs with aggressive diuresis -Lu in place -Renally dose medications -Creatinine remains stable DVT PPx: - elmer Eliquis CODE: DNR/DNI Dispo: From home, likely to remain in the hospital x 1-2 days Likely discharge tomorrow Admission and Anticipated Discharge Date Admission Date: September 26, 2020 Subjective 09/27/20 The patient was seen and examined in telemetry unit She has been feeling a lot better today Denies any chest pain, palpitation or shortness of breath at rest Leg swelling has improved Noted to have high blood pressure 09/28/2020 The patient was seen and examined in telemetry unit Initially she did not have any symptoms and she wanted to go home Her blood pressure was still elevated and was advised to stay for tonight and she was agreeable Later on I was called as the patient was having seizure-like activities She was having jerking movements involving both the lower extremities and left upper extremities more on the left side than the right with associated headache She has been having this kind of symptoms for the last 6 months off and on at home and when it comes up it can last up to 1 hour She feels very tired following an episode and she has not seen any physician for this She received a total of 0.5 mg Ativan in the symptoms were resolving Review of Systems Review of Systems: All systems reviewed and are unremarkable except as noted below Musculoskeletal: Did have extra pyramidal movements involving the extremities Neurologic: Alert, awake and oriented x3. Jerking movement involving the extremities and trunk as above Physical Exam Physical Exam: Lying in bed and is very anxious with occasional jerking movements involving the lower extremities and left upper extremity at times Constitutional: average body habitus; not ill appearing Eyes: PERRL, conjunctivae normal, anicteric sclerae ENMT: external ear and nose normal, oropharynx normal Neck: trachea midline, no thyromegaly Respiratory: no respiratory distress Auscultation: + diminished lung sounds and + crackles (Bibasilar crackles) Cardiovascular: Rate/Rhythm: regular rate and regular rhythm Heart Sounds: + murmur (2/6 ejection systolic murmur over the precordium) Extremities: + edema (Trace edema bilaterally) Gastrointestinal (Abdomen): Inspection/Auscultation: normal bowel sounds; abdomen not distended Percussion/Palpation: abdomen soft; abdomen nontender Neurologic: Alert and awake. Noted to have extrapyramidal pyramidal types of movement involving the extremities and trunk Lymphatic: no cervical or axillary lymphadenopathy Results & Data Results & Data ([facility]) Vital Signs (Past 12 Hours) Vital Signs Temp Pulse Pulse Resp BP BP Pulse Ox 09/28/20 10:50 36.7 C 82 18 190/64 H 92 09/28/20 07:31 65 09/28/20 07:16 36.8 C 64 20 190/66 H 96 09/28/20 02:31 36.8 C 60 18 166/64 H 96 09/28/20 00:00 Pulse Ox 09/28/20 10:50 09/28/20 07:31 09/28/20 07:16 09/28/20 02:31 09/28/20 00:00 93 Laboratory Results Short CBC 09/28/20 Range/Units 05:49 WBC 6.66 (4.8-10.8) K/uL Hgb 10.5 L (12.0-16.0) g/dL Hct 32.9 L (37-47) % Plt Count 291 (130-400) K/uL BMP 09/28/20 05:49 Sodium 139 Potassium 3.2 L Chloride 104 Carbon Dioxide 33 H BUN 27 H Creatinine 1.42 H Glucose 125 H Calcium 9.0 Liver Function 09/28/20 Range/Units 05:49 Total Bilirubin 0.7 (0.2-1) mg/dl AST 13 L (15-37) U/L ALT 11 L (12-78) U/L Alkaline Phosphatase 127 H (45-117) U/L Albumin 2.9 L (3.4-5.0) gm/dl Medications Administered Current Inpatient Medications Acetaminophen (Acetaminophen 325 Mg Tab) 650 mg PO Q4H PRN PRN Reason: Moderate Pain Stop: 10/26/20 09:51 Amlodipine Besylate (Amlodipine Besylate 5 Mg Tab) 10 mg PO QAM [facility] Stop: 10/26/20 09:59 Last Admin: 09/28/20 07:42 Dose: 10 mg Documented by: Apixaban (Apixaban 2.5 Mg Tab) 2.5 mg PO BID [facility] Stop: 10/26/20 09:59 Last Admin: 09/28/20 07:41 Dose: 2.5 mg Documented by: Atorvastatin Calcium (Atorvastatin 20 Mg Tab) 20 mg PO QAM [facility] Stop: 10/27/20 08:59 Last Admin: 09/28/20 07:41 Dose: 20 mg Documented by: Clonidine HCl (Clonidine Hcl 0.1 Mg Tab) 0.2 mg PO BID [facility] Stop: 10/28/20 20:59 Hydralazine HCl (Hydralazine Tab 50 Mg Tab) 100 mg PO TID [facility] Stop: 10/27/20 13:59 Last Admin: 09/28/20 13:43 Dose: 100 mg Documented by: Furosemide 40 mg/ Syringe 4 mls @ 4 mls/min IV BID17 [facility] Stop: 10/27/20 16:59 Last Admin: 09/28/20 07:42 Dose: 4 mls/min Documented by: Lorazepam (Ativan) 0.25 mg in 0.5 mls @ 0.5 mls/min IV TODAY PRN PRN Reason: Muscle Spasm Isosorbide Dinitrate (Isosorbide Dinitrate 10 Mg Tab) 10 mg PO TID@0700,1200,1700 [facility] Stop: 10/27/20 11:59 Last Admin: 09/28/20 11:52 Dose: 10 mg Documented by: Ondansetron HCl (Ondansetron Inj 2 Mg/Ml 2 Ml Vial) 4 mg IV Q4H PRN PRN Reason: Nausea And Vomiting Stop: 10/26/20 09:51 Potassium Chloride (Potassium Chloride Crtab 20 Meq Tabcr) [facility] Stop: 10/27/20 08:59 Last Admin: 09/28/20 07:42 Dose: 20 meq Documented by: (1) Hypertension Hypertension type: unspecified Qualified Code(s): I10 - Essential (primary) hypertension
[2020-09-28] MEDS ORDERED: Nursing to Pharmacy Communication SCH (11:45)
[2020-09-28 13:03] LABS: Folate (Folic Acid) 13.5 ng/ml (>5.38)
--- NOTE | 2020-09-28 14:50 | Consultation Report ---
DATE OF CONSULTATION: 09/28/2020 REASON FOR CONSULTATION: Assess spells. HISTORY OF PRESENT ILLNESS: The patient is known to me, I saw her 3 weeks ago for the episodes of which I am consulting now. She was admitted to the hospital 2 days ago for acute on chronic congestive heart failure with bibasilar airspace opacities and trace bilateral pleural effusions. Also, she was markedly hypertensive. She had a witnessed episode which is typical for what she has been experiencing over the last 1 year. I spoke to Dr. Anderson about the episode. He was called and she was having jerking movements involving the upper and lower extremities, perhaps somewhat more so on the left than the right, associated with a headache. The jerking, I do not know how long that episode last, but the patient is fatigued thereafter and she felt better after she received Ativan. In speaking with her again these episodes typically last several minutes, but apparently are always accompanied by headache and the headache is modestly severe. She otherwise does not have headaches. There is no change in vision when this happens. No focal neurologic deficits. I do not have a recording of her blood pressure or pulse at the time of the event, although of note, she has been fairly persistently hypertensive. The recorded pulses have ranged from the 60s-80s. The patient was not described as being diaphoretic. Reviewing my note from when I saw the patient 3 weeks ago, that history was supplemented by my discussion with the patient's daughter. She had been hospitalized at [facility], the records of which we do not have. She had only been hospitalized about a week before her last admission in part for abnormal movement. The daughter had reported these movements for 8 or 9 months frequency varying from several a day to 1 every several weeks, lasting 3 minutes, her arms moved back and forth like she is pulling weeds. Her legs move up and down in a bicycle motion and her head may move side to side and up and down. Eyes are open and the patient is responsive. No forced head or eye deviation, tends to occur while seated and only in her home and not on a Zoom call with friends. No relationship to meals. She otherwise does not have a tremor. The patient has had some difficulty with gait for about 9 months and ambulates with a walker. The patient has a history of rheumatic fever. When admitted to [facility] MRI showed a small old stroke, which they hypothesized with likely reason for gait impairment and she had at least a 24-hour EEG during which time she had one episode and I presume it was thought not to be a seizure. PAST MEDICAL HISTORY: Congestive heart failure, aortic plaque, hypertensive emergency, renal artery stenosis, chronic mesenteric ischemia. ALLERGIES: PENICILLIN, QUINOLONE AND ASPIRIN. PAST SURGICAL HISTORY: Repair of left rotator cuff, varicose vein stripping, appendectomy, hysterectomy. SOCIAL HISTORY: Former smoker, does not drink alcohol. CURRENT HOSPITAL MEDICATIONS: Amlodipine, Eliquis, atorvastatin, potassium, isosorbide, hydralazine and clonidine. LABORATORY DATA: Notable for white count on admission of 12, H and H 11.2/34.9, platelet count 302. PT, PTT normal. Chemistry profile notable for potassium 3.2, BUN and creatinine 27/1.4, glucose of 125, normal transaminases. PHYSICAL EXAMINATION:. VITAL SIGNS: 171/72, pulse 82, 36.7. GENERAL: The patient is awake and alert. She is modestly tachypneic, so I kept the exam to a minimal. She knows that she is at a hospital and is oriented to person. NECK: There are no carotid bruits. HEART: No heart murmurs. NEUROLOGIC: Her pupils are equal. I could not reliably visualize the optic nerves. There is normal motility boogie. No gross facial asymmetry. No resting tremor or cogwheel rigidity. Full strength, no drift. Normal rapid alternating movements. Depressed reflexes. Downgoing toes. [id number] is normal. [id number] is limited secondary to tachypnea. IMPRESSION: Recurrent episodes of generalized shaking with preserved consciousness and headache. PLAN: Recommend a set of vitals with the next episode to see if there is evidence of accelerated hypertension or tachycardia that might suggest pheochromocytoma. Consider CTA of head and neck versus MRA of head and neck. I defer to the hospitalist team as to whether or not they think the patient would tolerate the ionic load of CT dye. Repeat EEG might be reasonable as well. If those are unremarkable, I could consider placing on something prophylactic for headache. Again, see my prior discussion this abnormal movement is difficult to be difficult to name, it is not consistent with a ballismus, Chorea, dyskinesia, dystonia. We will follow with you.
[2020-09-29 06:48] LABS: Basophils # (auto) 0.02 K/uL (0-0.2); Basophils % (auto) 0.3 %; Eosinophils # (auto) 0.15 K/uL (0-0.5); Eosinophils % (auto) 2.5 %; Hematocrit (blood only) 31.3 % (37-47); Hemoglobin 10.3 g/dL (12.0-16.0); Immature Granulocytes # (auto) 0.02 K/uL (0.00-0.02); Immature Granulocytes % (auto) 0.3 %; Lymphocytes # (auto) 0.76 K/uL (1.2-3.4); Lymphocytes % (auto) 12.5 %; Mean Corpuscular Hemoglobin 24.3 pg (25-34); Mean Corpuscular Hgb Conc 32.9 g/dL (32-36); Mean Corpuscular Volume 73.8 fL (80-100); Mean Platelet Volume 8.7 fL (7.4-10.4); Monocytes # (auto) 1.03 K/uL (0.11-0.59); Neutrophils # (auto) 4.08 K/uL (1.4-6.5); Neutrophils % (auto) 67.4 %; Platelet Count 251 K/uL (130-400); RDW Coefficient of Variation 16.5 % (11.5-14.5); RDW Standard Deviation 44.3 fL (36.4-46.3); Red Blood Count 4.24 M/uL (4.2-5.4); White Blood Count 6.06 K/uL (4.8-10.8)
[2020-09-29 07:15] LABS: Albumin Level 2.8 gm/dl (3.4-5.0); BUN Creatinine Ratio 19.9 (10-20); Calcium 8.4 mg/dl (8.5-10.1); Creatinine Clr Calc Pharmacy 21.6 ml/min; Est GFR (African American) 36.9 ml/min; Est GFR (Non-African American) 31.8 ml/min; Magnesium 2.2 mg/dl (1.8-2.4); Potassium 3.4 mmol/L (3.5-5.1)
[2020-09-29 07:19] LABS: Albumin Globulin Ratio 0.9 (0.9-2); Bilirubin,Total 0.5 mg/dl (0.2-1); Globulin 3.1 gm/dl (2.5-4.0); T4 Free Thyroxine 1.38 ng/dl (0.8-1.6); Total Protein 5.9 gm/dl (6.4-8.2)
[2020-09-29] MEDS: ISOSORBIDE DINITRATE 10 MG TAB PO SCH ×3 (08:06→17:19)
[2020-09-29] MEDS: ATORVASTATIN 20 MG TAB PO SCH (08:06)
[2020-09-29] MEDS: cloNIDine HCL 0.1 MG TAB PO SCH ×2 (08:06→20:45)
[2020-09-29] MEDS: POTASSIUM CHLORIDE CRTAB 20 MEQ TABCR PO SCH (08:06)
[2020-09-29] MEDS: amLODIPine BESYLATE 5 MG TAB PO SCH (08:06)
[2020-09-29] MEDS: APIXABAN 2.5 MG TAB PO SCH ×2 (08:06→20:44)
[2020-09-29] MEDS: FUROSEMIDE 40 MG in SYRINGE 0 ML IV SCH ×2 (08:07→11:01)
[2020-09-29] MEDS: hydrALAZINE TAB 50 MG TAB PO SCH ×3 (08:07→20:45)
[2020-09-29] MEDS: FUROSEMIDE 20 MG TAB PO SCH (11:55)
--- NOTE | 2020-09-29 12:24 | Hospitalist Progress Note ---
Date of Service September 29, 2020 Assessment & Plan (1) Acute on chronic diastolic (congestive) heart failure: -History of diastolic/valvular dysfunction -CXR: Interval development of patchy bibasilar airspace opacities and trace bilateral pleural effusions. This favors a pneumonia and could be secondary to aspiration or viral process. -Troponin is elevated 0.193 and went up to 0.370 likely secondary to strain -Has been getting Lasix 80 mg twice daily -Daily weights, strict I's/O's, fluid restriction -Last echo done on 09/08/2020, consider repeat limited echo, LVEF 55 to 60% at that time with moderate MR, moderate mitral stenosis, mild aortic valve stenosis. -Appreciate cardiology input and recommendation -We will decrease the Lasix doses to 40 mg twice daily from today -Lasix has been changed to oral form Abnormal movements involving the extremities mainly Has been having these symptoms for more than 6 months with episodic attack Each attack consisting abnormal jerking movements involving the extremities and trunk which lasted for about an hour Following the attack she feels weak and tired but does not go to sleep Has had investigation including MRI and EEG in past without any evidence of cause Received 0.5 mg Ativan today with some improvement Appreciate neurology input and recommendation We will ask for MRA of the head and neck without contrast-do not want her kidney function to get worse (2) Hypertensive urgency: -Blood pressure of 230/118 upon arrival to the ER, given 1 inch Nitropaste, Ativan, morphine, IV hydralazine with some improvement. -Will resume home clonidine and amlodipine -Isordil has been started and hydralazine dose increased to 25 mg 3 times daily -Blood pressure remains elevated and clonidine doses have been increased -Blood pressure is well controlled with increasing dose of clonidine (3) Pulmonary edema: -CXR as above, possibly concerning for pneumonia -Patient with rigors during exam, will check blood cultures, lactic acid and pro calcitonin to rule out infectious source, pending labs will possibly start on ceftriaxone and doxycycline -Afebrile, WBC = 12.26 -Received intravenous Lasix 80 mg twice daily and will change to 40 mg twice daily from today (4) Coronary artery disease: -History of such, continue statin, antihypertensives as above -No acute cardiac symptoms and doubt any ACS (5) Dyslipidemia: -Continue atorvastatin 20 mg daily (6) Hypertension: -As above, history of being difficult to control, attempt to get back to her home medications. (7) Mild mitral stenosis: (8) Mild aortic stenosis: (9) Mitral regurgitation: (10) DM type 2 (diabetes mellitus, type 2): -A1c = 6.7 on 09/07/2020 -ISS with Accu-Cheks ACHS and for now Q6H while n.p.o. (11) Splenic infarct: -[place] to be due to atheroembolic, or cardioembolic, was discharged on Coumadin in April 2019, at some point time was transitioned to Eliquis, likely due to ease of administration. -Continue Eliquis 2.5 mg p.o. twice daily due to weight, age and renal function. (12) CKD (chronic kidney disease), stage III: -Creatinine 1.63, BUN 32, appears that her baseline creatinine is 1.3-1.4, monitor with a.m. labs with aggressive diuresis -Lu in place -Renally dose medications -Creatinine remains stable DVT PPx: - [place] payne CODE: DNR/DNI We will get PT and OT evaluation before discharge Admission and Anticipated Discharge Date Admission Date: September 26, 2020 Subjective 09/27/20 The patient was seen and examined in telemetry unit She has been feeling a lot better today Denies any chest pain, palpitation or shortness of breath at rest Leg swelling has improved Noted to have high blood pressure 09/28/2020 The patient was seen and examined in telemetry unit Initially she did not have any symptoms and she wanted to go home Her blood pressure was still elevated and was advised to stay for tonight and she was agreeable Later on I was called as the patient was having seizure-like activities She was having jerking movements involving both the lower extremities and left upper extremities more on the left side than the right with associated headache She has been having this kind of symptoms for the last 6 months off and on at home and when it comes up it can last up to 1 hour She feels very tired following an episode and she has not seen any physician for this She received a total of 0.5 mg Ativan in the symptoms were resolving 09/29/2020 The patient was seen and examined in telemetry unit She is perfectly fine today without any symptoms He did not have any more episodes of jerking involving the extremities and/or trunk Her blood pressure seems to well controlled today Review of Systems Review of Systems: All systems reviewed and are unremarkable except as noted b elow Musculoskeletal: No more extraparametal and/or abnormal movements involving the extremities and/or trunk Neurologic: Alert, awake and oriented x3 Physical Exam Physical Exam: Lying in comfortably without any symptoms Constitutional: average body habitus; not ill appearing Eyes: PERRL, conjunctivae normal, anicteric sclerae ENMT: external ear and nose normal, oropharynx normal Neck: trachea midline, no thyromegaly Respiratory: no respiratory distress Auscultation: + diminished lung sounds and + crackles (Bibasilar crackles) Cardiovascular: Rate/Rhythm: regular rate and regular rhythm Heart Sounds: + murmur (2/6 ejection systolic murmur over the precordium) Extremities: + edema (Trace edema bilaterally) Gastrointestinal (Abdomen): Inspection/Auscultation: normal bowel sounds; abdomen not distended Percussion/Palpation: abdomen soft; abdomen nontender Musculoskeletal: No more abnormal movements involving the extremities Neurologic: Alert, awake and oriented x3. No focal sensory and motor deficit appreciated Lymphatic: no cervical or axillary lymphadenopathy Results & Data Results & Data ([facility]) Vital Signs (Past 12 Hours) Vital Signs Temp Pulse Pulse Resp BP Pulse Ox Pulse Ox 09/29/20 12:17 36.6 C 95 H 18 128/51 L 95 09/29/20 10:09 53 L 09/29/20 08:00 36.8 C 58 L 17 168/69 H 95 98 09/29/20 07:18 36.8 C 58 L 17 185/67 H 98 09/29/20 03:45 36.9 C 50 L 18 175/66 H 96 Laboratory Results Short CBC 09/29/20 Range/Units 06:05 WBC 6.06 (4.8-10.8) K/uL Hgb 10.3 L (12.0-16.0) g/dL Hct 31.3 L (37-47) % Plt Count 251 (130-400) K/uL BMP 09/29/20 06:05 Sodium 139 Potassium 3.4 L Chloride 102 Carbon Dioxide 32 BUN 29 H Creatinine 1.45 H Glucose 136 H Calcium 8.4 L Liver Function 09/29/20 Range/Units 06:05 Total Bilirubin 0.5 (0.2-1) mg/dl AST 12 L (15-37) U/L ALT 10 L (12-78) U/L Alkaline Phosphatase 122 H (45-117) U/L Albumin 2.8 L (3.4-5.0) gm/dl Medications Administered Current Inpatient Medications Acetaminophen (Acetaminophen 325 Mg Tab) 650 mg PO Q4H PRN PRN Reason: Moderate Pain Stop: 10/26/20 09:51 Last Admin: 09/28/20 19:29 Dose: 650 mg Documented by: Amlodipine Besylate (Amlodipine Besylate 5 Mg Tab) 10 mg PO [facility] Stop: 10/26/20 09:59 Last Admin: 09/29/20 08:06 Dose: 10 mg Documented by: Apixaban (Apixaban 2.5 Mg Tab) 2.5 mg PO BID [facility] Stop: 10/26/20 09:59 Last Admin: 09/29/20 08:06 Dose: 2.5 mg Documented by: Atorvastatin Calcium (Atorvastatin 20 Mg Tab) 20 mg PO [facility] Stop: 10/27/20 08:59 Last Admin: 09/29/20 08:06 Dose: 20 mg Documented by: Clonidine HCl (Clonidine Hcl 0.1 Mg Tab) 0.2 mg PO BID [facility] Stop: 10/28/20 20:59 Last Admin: 09/29/20 08:06 Dose: 0.2 mg Documented by: Furosemide (Furosemide 20 Mg Tab) 20 mg PO QAM [facility] Stop: 10/29/20 10:59 Last Admin: 09/29/20 11:55 Dose: 20 mg Documented by: Hydralazine HCl (Hydralazine Tab 50 Mg Tab) 100 mg PO TID [facility] Stop: 10/27/20 13:59 Last Admin: 09/29/20 08:07 Dose: 100 mg Documented by: Lorazepam (Ativan) 0.25 mg in 0.5 mls @ 0.5 mls/min IV TODAY PRN PRN Reason: Muscle Spasm Isosorbide Dinitrate (Isosorbide Dinitrate 10 Mg Tab) 10 mg PO TID@0700,1200,1700 [facility] Stop: 10/27/20 11:59 Last Admin: 09/29/20 11:55 Dose: 10 mg Documented by: Ondansetron HCl (Ondansetron Inj 2 Mg/Ml 2 Ml Vial) 4 mg IV Q4H PRN PRN Reason: Nausea And Vomiting Stop: 10/26/20 09:51 Potassium Chloride (Potassium Chloride Crtab 20 Meq Tabcr) 20 meq PO QAM [facility] Stop: 10/27/20 08:59 Last Admin: 09/29/20 08:06 Dose: 20 meq Documented by: (1) Hypertension Hypertension type: unspecified Qualified Code(s): I10 - Essential (primary) hypertension
[2020-09-29] MEDS ORDERED: POTASSIUM CHLORIDE CRTAB 20 MEQ TABCR PO STA (13:31)
--- NOTE | 2020-09-29 13:34 | Cardiology Progress Note ---
Date of Service September 29, 2020 Assessment & Plan (1) Hypertension: Blood pressure improved on amlodipine, isosorbide dinitrate, hydralazine, clonidine, furosemide. (2) Acute on chronic diastolic (congestive) heart failure: 5 status improved on furosemide 20 mg daily. Supplement potassium. (3) Mild mitral stenosis: Noted on echocardiogram earlier this month, relatively unchanged compared to prior transesophageal echocardiogram. (4) Splenic infarct: On anticoagulation with Eliquis (off label use) no definite atrial fibrillation never captured. Admission and Anticipated Discharge Date Admission Date: September 26, 2020 Subjective Patient seen in cardiology follow-up. Blood pressure improved, systolic blood pressure in the 160s earlier this morning, 128/51 at 12:17 PM. States her breathing is doing well. No additional uncontrolled extremity "jerking" movements. Telemetry reveals sinus rhythm in the 50s. Physical Exam Physical Exam: Temp Pulse Resp BP Pulse Ox 36.6 C 95 H 18 128/51 L 95 09/29/20 12:17 09/29/20 12:17 09/29/20 12:17 09/29/20 12:17 09/29/20 12:17 Constitutional: + thin; no acute distress Respiratory: normal respiratory effort, lungs clear to auscultation Cardiovascular: RRR, no murmur, no edema Neurologic: PERRL, EOMI, accommodation nl, no face palsy, no dysarthria Results & Data ([facility]) Vital Signs (Past 12 Hours) Vital Signs Temp Pulse Pulse Resp BP Pulse Ox Pulse Ox 09/29/20 12:17 36.6 C 95 H 18 128/51 L 95 09/29/20 10:09 53 L 09/29/20 08:00 36.8 C 58 L 17 168/69 H 95 98 09/29/20 07:18 36.8 C 58 L 17 185/67 H 98 09/29/20 03:45 36.9 C 50 L 18 175/66 H 96 Laboratory Results Cardiac Enzymes 09/29/20 Range/Units 06:05 AST 12 L (15-37) U/L CBC 09/29/20 Range/Units 06:05 WBC 6.06 (4.8-10.8) K/uL RBC 4.24 (4.2-5.4) M/uL Hgb 10.3 L (12.0-16.0) g/dL Hct 31.3 L (37-47) % Plt Count 251 (130-400) K/uL Neut # (Auto) 4.08 (1.4-6.5) K/uL Lymph # (Auto) 0.76 L (1.2-3.4) K/uL [place] # (Auto) 1.03 H (0.11-0.59) K/uL Eos # (Auto) 0.15 (0-0.5) K/uL Baso # (Auto) 0.02 (0-0.2) K/uL Comprehensive Metabolic Panel 09/29/20 Range/Units 06:05 Sodium 139 (136-145) mmol/L Potassium 3.4 L (3.5-5.1) mmol/L Chloride 102 (98-107) mmol/L Carbon Dioxide 32 (21-32) mmol/L BUN 29 H (7-18) mg/dl Creatinine 1.45 H (0.6-1.2) mg/dl Glucose 136 H (70-99) mg/dl Calcium 8.4 L (8.5-10.1) mg/dl AST 12 L (15-37) U/L ALT 10 L (12-78) U/L Alkaline Phosphatase 122 H (45-117) U/L Total Protein 5.9 L (6.4-8.2) gm/dl Albumin 2.8 L (3.4-5.0) gm/dl Intake and Output 09/28/20 09/29/20 09/29/20 22:59 06:59 14:59 Output Total 1114 Balance -1114 Output: Urine Amount (Catheter) 1114 Lu/Indwelling 1114 Other: Weight 58.4 kg Weight Measurement Method Standing Scale (1) Hypertension Hypertension type: unspecified Qualified Code(s): I10 - Essential (primary) hypertension
--- NOTE | 2020-09-29 13:38 | Progress Notes ---
DATE: 09/29/2020 I am seeing the patient in followup of abnormal movements. She has not had any recurrent events. Clarifying further, she has a fairly severe headache after the events. She also reports that she is diaphoretic during the events and has palpitations. Today, she is much less tachypneic. IMPRESSION: Episodes of tremor, headache, diaphoresis, raising a question of some paroxysmal hypertension. PLAN: I have asked nursing to obtain the records from [facility]. If the patient has a recurrent episode, I advised blood pressure and pulse be checked. As well, blood sugar. Given the severity of the headaches, recommend CTA of the head and neck or MRA of the head and neck. I will review her MRI from the prior hospitalization. We will follow with you.
[2020-09-30] MEDS: amLODIPine BESYLATE 5 MG TAB PO SCH (08:38)
[2020-09-30] MEDS: cloNIDine HCL 0.1 MG TAB PO SCH ×2 (08:38→20:32)
[2020-09-30] MEDS: ATORVASTATIN 20 MG TAB PO SCH (08:38)
[2020-09-30] MEDS: hydrALAZINE TAB 50 MG TAB PO SCH ×3 (08:39→20:32)
[2020-09-30] MEDS: APIXABAN 2.5 MG TAB PO SCH ×2 (08:39→20:33)
[2020-09-30] MEDS: POTASSIUM CHLORIDE CRTAB 20 MEQ TABCR PO SCH (08:39)
[2020-09-30] MEDS: ISOSORBIDE DINITRATE 10 MG TAB PO SCH ×4 (08:39→18:11)
[2020-09-30] MEDS: FUROSEMIDE 20 MG TAB PO SCH (08:39)
--- NOTE | 2020-09-30 10:21 | Magnetic Resonance Report ---
MR ANGIOGRAPHY OF THE [place] OF [place] NO CONTRAST CLINICAL HISTORY: Headaches. Difficulty with balance. COMPARISON STUDY: None. A 3-D [id number] MR angiographic sequence of the [place] of [place] was performed. Both the source and projection images were reviewed. The study is limited from a technical standpoint due to patient motion. There is no evidence of major intracranial branch occlusion. There are no lesions suspicious for aneu rysm. There is mild narrowing of the distal left vertebral artery. There is a stenosis of the proxima l right A1 segment. IMPRESSION: 1. Motion degraded study 2. 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 Mild narrowing of the distal left vertebral artery. 4. No evidence of aneurysm. ACT 112: Negative or not required by law. Electronically signed by: Timmy Uriarte M.D. 09/30/2020 10:20 AM
[2020-09-30] MEDS ORDERED: LOSARTAN POTASSIUM 50 MG TAB PO SCH (11:00)
--- NOTE | 2020-09-30 11:22 | Magnetic Resonance Report ---
NECK MRA HISTORY: R/O Stenosis TECHNIQUE: Peek-[id number] and gadolinium-enhanced MRA of the neck was performed both before and after the intravenous administration of contrast. All measurements were calculated based on NASCET criteri a. COMPARISON STUDY: None. FINDINGS: Aortic arch is outside of field of view. There is no significant stenosis, occlusion, or dissection identified within the bilateral common car otid, internal carotid, or vertebral arteries, however evaluation is limited due to motion artifact.. IMPRESSION: No definite occlusion or significant stenosis is seen on this limited exam. Further evaluation with C TA angiography of the neck might be considered if clinically indicated. ACT 112: Negative or not required by law. The above report was generated using voice recognition software. It may contain grammatical, syntax o r spelling errors. Electronically signed by: Jihan Hamilton DO 09/30/2020 11:20 AM
--- NOTE | 2020-09-30 13:27 | Cardiology Progress Note ---
Date of Service September 30, 2020 Assessment & Plan (1) Hypertension: Blood pressure remains labile. With peaks prior to receiving clonidine. May consider additional 0.1 mg of clonidine in the afternoon or addition of losartan. Renal function is stable even if she does have some degree of renal artery stenosis a trial of ARB would be appropriate as long as renal function is followed closely. Continue amlodipine, isosorbide dinitrate, hydralazine, clonidine, furosemide. (2) Acute on chronic diastolic (congestive) heart failure: 5 status improved on furosemide 20 mg daily. Supplement potassium. (3) Mild mitral stenosis: Noted on echocardiogram earlier this month, relatively unchanged compared to prior transesophageal echocardiogram. (4) Splenic infarct: On anticoagulation with Eliquis (off label use) no definite atrial fibrillation never captured. Admission and Anticipated Discharge Date Admission Date: September 26, 2020 Subjective Patient seen and examined, chart reviewed. Continued episodes of full body spasms overnight. Otherwise, feeling well. Review of Systems Review of Systems: All systems reviewed & are unremarkable except as noted in HPI & below Physical Exam Physical Exam: General: Awake, alert and oriented x 3. No acute distress. HEENT: Normocephalic, atraumatic. Pupils equal, round and reactive to light and accommodation. Extraocular muscles are intact. Anicteric sclera. Moist mucous membranes. Neck: No JVD. No bruit. Cardiovascular: Regular. Positive S-4. Normal S-1 and S-2. No S-3. No murmurs or rubs. Pulmonary: Clear to auscultation B/L. No rales, rhonchi or wheezing Abdomen: Bowel sounds x 4, soft. No rebound, guarding or tenderness. No organomegaly. Extremities: No clubbing, cyanosis or edema. +2 pedal pulses bilaterally. Skin: Warm and dry. Results & Data ([facility]) Vital Signs (Past 12 Hours) Vital Signs Temp Pulse Pulse Resp BP Pulse Ox Pulse Ox 09/30/20 12:15 55 L 18 120/54 L 95 09/30/20 12:13 36.9 C 52 L 18 160/64 H 97 09/30/20 10:24 36.7 C 54 L 17 134/57 L 09/30/20 08:00 52 L 95 09/30/20 07:53 37.0 C 57 L 18 198/62 H 95 09/30/20 03:35 36.8 C 57 L 18 188/56 H 94 (1) Hypertension Hypertension type: unspecified Qualified Code(s): I10 - Essential (primary) hypertension
--- NOTE | 2020-09-30 14:46 | Ultrasound Report ---
US duplex renal artery CLINICAL HISTORY: Uncontrolled hypertension. COMPARISON STUDY: CT of the abdomen and pelvis March 31, 2019. TECHNIQUE: Grayscale, color and duplex Doppler sonography of the abdominal aorta and renal arteries w as performed. FINDINGS: This exam is compromised by suboptimal penetration. The right kidney measures 10.2 cm in ma ximal dimension and the left measures 8.5 cm. There is marked left renal atrophy. There is no hydrone phrosis. Peak systolic velocity within the abdominal aorta was 140 cm/s. Peak systolic velocity withi n the right renal artery was 69 cm/s. Bilateral renal arteries and veins were patent. The left renal artery is not well visualized on this examination. No elevated velocities were identified within visu alized portions of the left renal artery however this study is nondiagnostic for evaluation of renal artery stenosis. IMPRESSION: 1. Exam compromised by suboptimal penetration with incomplete visualization of the left renal artery. Therefore, this study is nondiagnostic for evaluation for renal artery stenosis. 2. Marked left renal atrophy. 3. No hydronephrosis. ACT 112: Negative or not required by law. Electronically signed by: Randall Drummond M.D. 09/30/2020 2:45 PM
--- NOTE | 2020-09-30 14:55 | Electroencephalogram ---
EEG Procedure Note Date of Service September 30, 2020 Start / End Times Start Time: 06 End Time: 0636 Referring Physician History Possible seizures Home Medication List Medication Instructions Recorded Confirmed Type amlodipine 10 mg PO QAM 03/31/19 09/26/20 History atorvastatin 20 mg PO QAM #30 tab 04/12/19 09/26/20 Rx hydralazine 100 mg PO TID #90 tab 04/12/19 09/26/20 Rx clonidine HCl 0.1 mg PO BID 09/06/20 09/26/20 History pantoprazole 40 mg PO DAILYBB 09/06/20 09/26/20 History sennosides-docusate sodium [Senna 1 tab-cap PO BID 09/06/20 09/26/20 History with Docusate Sodium] Eliquis 2.5 mg PO BID #0 tab 09/09/20 09/26/20 Rx furosemide [Lasix] 20 mg PO QAM 09/26/20 09/26/20 History isosorbide dinitrate 10 mg PO TID 09/26/20 09/26/20 History potassium chloride [Klor-Con M20] 20 meq PO QAM 09/26/20 09/26/20 History Inpatient Medication List Acetaminophen (Acetaminophen 325 Mg Tab) 650 mg PO Q4H PRN PRN Reason: Moderate Pain Stop: 10/26/20 09:51 Last Admin: 09/28/20 19:29 Dose: 650 mg Documented by: [id number] Amlodipine Besylate (Amlodipine Besylate 5 Mg Tab) 10 mg PO QAM [facility] Stop: 10/26/20 09:59 Last Admin: 09/30/20 08:38 Dose: 10 mg Documented by: [id number] Admin: 09/29/20 08:06 Dose: 10 mg Documented by: [id number] Admin: 09/28/20 07:42 Dose: 10 mg Documented by: [id number] Admin: 09/27/20 07:46 Dose: 10 mg Documented by: [id number] Admin: 09/26/20 11:35 Dose: 10 mg Documented by: [id number] Apixaban (Apixaban 2.5 Mg Tab) 2.5 mg PO BID [facility] Stop: 10/26/20 09:59 Last Admin: 09/30/20 08:39 Dose: 2.5 mg Documented by: [id number] Admin: 09/29/20 20:44 Dose: 2.5 mg Documented by: [id number] Admin: 09/29/20 08:06 Dose: 2.5 mg Documented by: [id number] Admin: 09/28/20 20:34 Dose: 2.5 mg Documented by: [id number] Admin: 09/28/20 07:41 Dose: 2.5 mg Documented by: [id number] Admin: 09/27/20 20:16 Dose: 2.5 mg Documented by: [id number] Admin: 09/27/20 07:45 Dose: 2.5 mg Documented by: [id number] Admin: 09/26/20 20:23 Dose: 2.5 mg Documented by: [id number] Admin: 09/26/20 11:34 Dose: 2.5 mg Documented by: [id number] Atorvastatin Calcium (Atorvastatin 20 Mg Tab) 20 mg PO QAM [facility] Stop: 10/27/20 08:59 Last Admin: 09/30/20 08:38 Dose: 20 mg Documented by: [id number] Admin: 09/29/20 08:06 Dose: 20 mg Documented by: [id number] Admin: 09/28/20 07:41 Dose: 20 mg Documented by: [id number] Admin: 09/27/20 07:46 Dose: 20 mg Documented by: [id number] Clonidine HCl (Clonidine Hcl 0.1 Mg Tab) 0.2 mg PO BID [facility] Stop: 10/28/20 20:59 Last Admin: 09/30/20 08:38 Dose: 0.2 mg Documented by: [id number] Admin: 09/29/20 20:45 Dose: 0.2 mg Documented by: [id number] Admin: 09/29/20 08:06 Dose: 0.2 mg Documented by: [id number] Admin: 09/28/20 20:34 Dose: 0.2 mg Documented by: [id number] Furosemide (Furosemide 20 Mg Tab) 20 mg PO QAM [facility] Stop: 10/29/20 10:59 Last Admin: 09/30/20 08:39 Dose: 20 mg Documented by: [id number] Admin: 09/29/20 11:55 Dose: 20 mg Documented by: [id number] Hydralazine HCl (Hydralazine Tab 50 Mg Tab) 100 mg PO TID [facility] Stop: 10/27/20 13:59 Last Admin: 09/30/20 08:39 Dose: 100 mg Documented by: [id number] Admin: 09/29/20 20:45 Dose: 100 mg Documented by: [id number] Admin: 09/29/20 13:30 Dose: 100 mg Documented by: [id number] Admin: 09/29/20 08:07 Dose: 100 mg Documented by: [id number] Admin: 09/28/20 19:33 Dose: 100 mg Documented by: [id number] Admin: 09/28/20 13:43 Dose: 100 mg Documented by: [id number] Admin: 09/28/20 07:41 Dose: 100 mg Documented by: [id number] Admin: 09/27/20 19:51 Dose: 100 mg Documented by: [id number] Admin: 09/27/20 16:04 Dose: 100 mg Documented by: [id number] Isosorbide Dinitrate (Isosorbide Dinitrate 10 Mg Tab) 10 mg PO TID@0700,1200,1700 [facility] Stop: 10/27/20 11:59 Last Admin: 09/30/20 12:20 Dose: 10 mg Documented by: [id number] Admin: 09/30/20 08:39 Dose: 10 mg Documented by: [id number] Admin: 09/29/20 17:19 Dose: 10 mg Documented by: [id number] Admin: 09/29/20 11:55 Dose: 10 mg Documented by: [id number] Admin: 09/29/20 08:06 Dose: 10 mg Documented by: [id number] Admin: 09/28/20 16:31 Dose: 10 mg Documented by: [id number] Admin: 09/28/20 11:52 Dose: 10 mg Documented by: [id number] Admin: 09/28/20 07:40 Dose: 10 mg Documented by: [id number] Admin: 09/27/20 16:04 Dose: 10 mg Documented by: [id number] Admin: 09/27/20 12:09 Dose: 10 mg Documented by: [id number] Potassium Chloride (Potassium Chloride Crtab 20 Meq Tabcr) 20 meq PO QAM [facility] Stop: 10/27/20 08:59 Last Admin: 09/30/20 08:39 Dose: 20 meq Documented by: [id number] Admin: 09/29/20 08:06 Dose: 20 meq Documented by: [id number] Admin: 09/28/20 07:42 Dose: 20 meq Documented by: [id number] Admin: 09/27/20 07:46 Dose: 20 meq Documented by: [id number] Discontinued Medications Clonidine HCl (Clonidine Hcl 0.1 Mg Tab) 0.1 mg PO BID [facility] Stop: 10/26/20 09:59 Last Admin: 09/28/20 07:41 Dose: 0.1 mg Documented by: [id number] Admin: 09/27/20 19:51 Dose: 0.1 mg Documented by: [id number] Admin: 09/27/20 07:45 Dose: 0.1 mg Documented by: [id number] Admin: 09/26/20 20:24 Dose: 0.1 mg Documented by: [id number] Admin: 09/26/20 11:35 Dose: 0.1 mg Documented by: [id number] Clonidine HCl (Clonidine Hcl 0.1 Mg Tab) 0.1 mg PO NOW ONE Stop: 09/28/20 10:30 Last Admin: 09/28/20 11:40 Dose: 0.1 mg Documented by: [id number] Furosemide (Furosemide 40 Mg/4 Ml Vial) Confirm Administered Dose 40 mg IV .STK- MED ONE Stop: 09/26/20 07:02 Last Admin: 09/26/20 07:06 Dose: 40 mg Documented by: [id number] Furosemide (Furosemide 40 Mg/4 Ml Vial) 40 mg IV NOW STA Stop: 09/26/20 07:03 Last Admin: 09/26/20 07:06 Dose: Not Given Documented by: [id number] Hydralazine HCl (Hydralazine Hcl 20 Mg/Ml Vial) 10 mg IV NOW STA Stop: 09/26/20 07:11 Last Admin: 09/26/20 07:29 Dose: 10 mg Documented by: [id number] Hydralazine HCl (Hydralazine Hcl 25 Mg Tab) 25 mg PO TID [facility] Stop: 10/26/20 13:59 Last Admin: 09/27/20 07:45 Dose: 25 mg Documented by: [id number] Admin: 09/26/20 20:24 Dose: 25 mg Documented by: [id number] Admin: 09/26/20 14:47 Dose: 25 mg Documented by: [id number] Hydralazine HCl (Hydralazine Hcl 25 Mg Tab) 25 mg PO ONE ONE Stop: 09/27/20 10:01 Last Admin: 09/27/20 10:28 Dose: 25 mg Documented by: [id number] Lorazepam (Ativan) 0.5 mg in 1 mls @ 1 mls/min IV NOW STA Stop: 09/26/20 07:08 Last Admin: 09/26/20 07:13 Dose: 1 mls/min Documented by: [id number] Furosemide 40 mg/ Syringe 4 mls @ 4 mls/min IV [id number] [facility] Stop: 10/26/20 09:59 Last Admin: 09/26/20 11:34 Dose: 4 mls/min Documented by: [id number] Furosemide 80 mg/ Syringe 8 mls @ 4 mls/min IV BID17 [facility] Stop: 10/26/20 16:59 Last Admin: 09/27/20 07:46 Dose: 4 mls/min Documented by: [id number] Admin: 09/26/20 17:34 Dose: 4 mls/min Documented by: [id number] Furosemide 40 mg/ Syringe 4 mls @ 4 mls/min IV [id number] [facility] Stop: 10/27/20 16:59 Last Admin: 09/29/20 11:01 Dose: Not Given Documented by: [id number] Admin: 09/28/20 16:31 Dose: 4 mls/min Documented by: [id number] Admin: 09/28/20 07:42 Dose: 4 mls/min Documented by: [id number] Admin: 09/27/20 16:04 Dose: 4 mls/min Documented by: [id number] Isosorbide Dinitrate (Isosorbide Dinitrate 10 Mg Tab) 10 mg PO ONE ONE Stop: 09/27/20 10:01 Last Admin: 09/27/20 11:02 Dose: 10 mg Documented by: [id number] Lorazepam (Lorazepam 2 Mg/4 Ml Vial) Confirm Administered Dose 2 mg .ROUTE .STK- MED ONE Stop: 09/28/20 10:51 Last Increment: 09/28/20 10:54 Dose: 0.25 mg Documented by: [id number] Lorazepam (Lorazepam 2 Mg/4 Ml Vial) Confirm Administered Dose 2 mg .ROUTE .STK- MED ONE Stop: 09/28/20 11:10 Last Increment: 09/28/20 11:20 Dose: 0.25 mg Documented by: [id number] Morphine Sulfate (Morphine Sulfate 2 Mg/Ml Carp) 2 mg IV NOW STA Stop: 09/26/20 07:09 Last Admin: 09/26/20 07:13 Dose: 2 mg Documented by: [id number] Morphine Sulfate (Morphine Sulfate 2 Mg/Ml Carp) Confirm Administered Dose 2 mg .ROUTE .STK-MED ONE Stop: 09/26/20 07:12 Last Admin: 09/26/20 07:14 Dose: Not Given Documented by: [id number] Nitroglycerin (Nitroglycerin 2% Ointment 30gm Tube) Confirm Administered Dose 18 inch .ROUTE .STK-MED ONE Stop: 09/26/20 07:01 Last Admin: 09/26/20 07:06 Dose: 1 inch Documented by: [id number] Ondansetron HCl (Ondansetron Inj 2 Mg/Ml 2 Ml Vial) 4 mg IV NOW STA Stop: 09/26/20 07:11 Last Admin: 09/26/20 07:30 Dose: 4 mg Documented by: [id number] Potassium Chloride (Potassium Chloride Crtab 20 Meq Tabcr) 40 meq PO NOW STA Stop: 09/27/20 08:52 Last Admin: 09/27/20 09:42 Dose: 40 meq Documented by: [id number] Potassium Chloride (Potassium Chloride Crtab 20 Meq Tabcr) 40 meq PO NOW STA Stop: 09/28/20 08:02 Last Admin: 09/28/20 08:41 Dose: 40 meq Documented by: [id number] Potassium Chloride (Potassium Chloride Crtab 20 Meq Tabcr) 40 meq PO NOW STA Stop: 09/29/20 13:32 Last Admin: 09/29/20 14:26 Dose: 40 meq Documented by: [id number] Description This is a 21 electrode EEG with a single channel dedicated to limited EKG. The electrodes were placed in accordance with the International 10-20 system. This EEG was obtained as a bedside recording with simultaneous video analysis of patient movement and behavior and with photic stimulation but without drowsiness and light sleep being recorded. Under the conditions there is evidence for a background rhythm in the alpha range of up to 10 Hz maximum frequency of up to 20 V maximal amplitude which is maximum posterior head regions bilaterally symmetrical. Theta activity of modest voltage and mid frequency is seen in a symmetrical fashion over the central regions. Beta activity seen bifrontally. There are periodic movement artifacts which correspond to movement seen on video analysis Photic summation provokes minimal driving response No evidence for potential epileptogenic activity is seen during the waking tracing Interpretation This is an essentially normal EEG during wakefulness Clinical Correlation This EEG is normal and reveals no evidence for focal generalized encephalopathy no evidence for potential epileptogenic activity Galileo Parra MD
--- NOTE | 2020-09-30 16:36 | Hospitalist Progress Note ---
Date of Service September 30, 2020 Assessment & Plan (1) Acute on chronic diastolic (congestive) heart failure: -History of diastolic/valvular dysfunction -CXR: Interval development of patchy bibasilar airspace opacities and trace bilateral pleural effusions. This favors a pneumonia and could be secondary to aspiration or viral process. -Troponin is elevated 0.193 and went up to 0.370 likely secondary to strain -Has been getting Lasix 80 mg twice daily -Daily weights, strict I's/O's, fluid restriction -Last echo done on 09/08/2020, consider repeat limited echo, LVEF 55 to 60% at that time with moderate MR, moderate mitral stenosis, mild aortic valve stenosis. -Appreciate cardiology input and recommendation -We will decrease the Lasix doses to 40 mg twice daily from today -Lasix has been changed to oral form -She will get supplemental potassium -Remains euvolemic Abnormal movements involving the extremities mainly Has been having these symptoms for more than 6 months with episodic attack Each attack consisting abnormal jerking movements involving the extremities and trunk which lasted for about an hour Following the attack she feels weak and tired but does not go to sleep Has had investigation including MRI and EEG in past without any evidence of cause Received 0.5 mg Ativan today with some improvement Appreciate neurology input and recommendation We will ask for MRA of the head and neck without contrast-do not want her kidney function to get worse EEG has been unremarkable Marked dizziness this morning Hemodynamically stable with blood pressure on the upper side Will not discharge her's today Continue with PT and OT and possible discharge tomorrow (2) Hypertensive urgency: -Blood pressure of 230/118 upon arrival to the ER, given 1 inch Nitropaste, Ativan, morphine, IV hydralazine with some improvement. -Will resume home clonidine and amlodipine -Isordil has been started and hydralazine dose increased to 25 mg 3 times daily -Blood pressure remains elevated and clonidine doses have been increased -Blood pressure is well controlled with increasing dose of clonidine -Renal arterial ultrasound is unremarkable -Blood pressure is controlled now (3) Pulmonary edema: -CXR as above, possibly concerning for pneumonia -Patient with rigors during exam, will check blood cultures, lactic acid and pro calcitonin to rule out infectious source, pending labs will possibly start on ceftriaxone and doxycycline -Afebrile, WBC = 12.26 -Received intravenous Lasix 80 mg twice daily and will change to 40 mg twice daily from today -She is back to her baseline diuretics (4) Coronary artery disease: -History of such, continue statin, antihypertensives as above -No acute cardiac symptoms and doubt any ACS (5) Dyslipidemia: -Continue atorvastatin 20 mg daily (6) Hypertension: -As above, history of being difficult to control, attempt to get back to her home medications. (7) Mild mitral stenosis: (8) Mild aortic stenosis: (9) Mitral regurgitation: (10) DM type 2 (diabetes mellitus, type 2): -A1c = 6.7 on 09/07/2020 -ISS with Accu-Cheks ACHS and for now Q6H while n.p.o. (11) Splenic infarct: -[place] to be due to atheroembolic, or cardioembolic, was discharged on Coum catarino in April 2019, at some point time was transitioned to Eliquis, likely due to ease of administration. -Continue Eliquis 2.5 mg p.o. twice daily due to weight, age and renal function. (12) CKD (chronic kidney disease), stage III: -Creatinine 1.63, BUN 32, appears that her baseline creatinine is 1.3-1.4, monitor with a.m. labs with aggressive diuresis -Lu in place -Renally dose medications -Creatinine remains stable DVT PPx: - Casper payne CODE: DNR/DNI We will get PT and OT evaluation before discharge Likely discharge tomorrow Admission and Anticipated Discharge Date Admission Date: September 26, 2020 Subjective 09/27/20 The patient was seen and examined in telemetry unit She has been feeling a lot better today Denies any chest pain, palpitation or shortness of breath at rest Leg swelling has improved Noted to have high blood pressure 09/28/2020 The patient was seen and examined in telemetry unit Initially she did not have any symptoms and she wanted to go home Her blood pressure was still elevated and was advised to stay for tonight and she was agreeable Later on I was called as the patient was having seizure-like activities She was having jerking movements involving both the lower extremities and left upper extremities more on the left side than the right with associated headache She has been having this kind of symptoms for the last 6 months off and on at home and when it comes up it can last up to 1 hour She feels very tired following an episode and she has not seen any physician for this She received a total of 0.5 mg Ativan in the symptoms were resolving 09/29/2020 The patient was seen and examined in telemetry unit She is perfectly fine today without any symptoms He did not have any more episodes of jerking involving the extremities and/or trunk Her blood pressure seems to well controlled today 09/30/2020 The patient was seen and examined in telemetry unit She was complaining of very weak and dizzy this morning after coming back from MRI scan Denies any chest pain and/or palpitation Denies any shortness of breath Review of Systems Review of Systems: All systems reviewed and are unremarkable except as noted below Musculoskeletal: No more extraparametal and/or abnormal movements involving the extremities and/or trunk Neurologic: Alert, awake and oriented x3 Physical Exam Physical Exam: Sitting on a chair and lateral lying in bed with profound weakness and tiredness Constitutional: + ill appearing and average body habitus Eyes: PERRL, conjunctivae normal, anicteric sclerae ENMT: external ear and nose normal, oropharynx normal Neck: trachea midline, no thyromegaly Respiratory: no respiratory distress Auscultation: + diminished lung sounds and + crackles (Bibasilar crackles) Cardiovascular: Rate/Rhythm: regular rate and regular rhythm Heart Sounds: + murmur (2/6 ejection systolic murmur over the precordium) Extremities: + edema (Trace edema bilaterally) Gastrointestinal (Abdomen): Inspection/Auscultation: normal bowel sounds; abdomen not distended Percussion/Palpation: abdomen soft; abdomen nontender Musculoskeletal: No acute arthritis in any joint Neurologic: Alert, awake and oriented x3. Generally weak. Lymphatic: no cervical or axillary lymphadenopathy Results & Data Results & Data ([facility]) Vital Signs (Past 12 Hours) Vital Signs Temp Pulse Pulse Resp BP Pulse Ox Pulse Ox 09/30/20 15:56 36.7 C 53 L 18 151/63 H 98 09/30/20 14:50 153/64 H 09/30/20 12:15 55 L 18 120/54 L 95 09/30/20 12:13 36.9 C 52 L 18 160/64 H 97 09/30/20 10:24 36.7 C 54 L 17 134/57 L 09/30/20 08:00 52 L 95 09/30/20 07:53 37.0 C 57 L 18 198/62 H 95 Medications Administered Current Inpatient Medications Acetaminophen (Acetaminophen 325 Mg Tab) 650 mg PO Q4H PRN PRN Reason: Moderate Pain Stop: 10/26/20 09:51 Last Admin: 09/28/20 19:29 Dose: 650 mg Documented by: Amlodipine Besylate (Amlodipine Besylate 5 Mg Tab) [facility] Stop: 10/26/20 09:59 Last Admin: 09/30/20 08:38 Dose: 10 mg Documented by: Apixaban (Apixaban 2.5 Mg Tab) 2.5 mg PO BID [facility] Stop: 10/26/20 09:59 Last Admin: 09/30/20 08:39 Dose: 2.5 mg Documented by: Atorvastatin Calcium (Atorvastatin 20 Mg Tab) 20 mg PO QAM [facility] Stop: 10/27/20 08:59 Last Admin: 09/30/20 08:38 Dose: 20 mg Documented by: Clonidine HCl (Clonidine Hcl 0.1 Mg Tab) 0.2 mg PO BID [facility] Stop: 10/28/20 20:59 Last Admin: 09/30/20 08:38 Dose: 0.2 mg Documented by: Furosemide (Furosemide 20 Mg Tab) [facility] [place] Stop: 10/29/20 10:59 Last Admin: 09/30/20 08:39 Dose: 20 mg Documented by: Hydralazine HCl (Hydralazine Tab 50 Mg Tab) 100 mg PO TID [facility] Stop: 10/27/20 13:59 Last Admin: 09/30/20 14:52 Dose: 100 mg Documented by: Lorazepam (Ativan) 0.25 mg in 0.5 mls @ 0.5 mls/min IV TODAY PRN PRN Reason: Muscle Spasm Isosorbide Dinitrate (Isosorbide Dinitrate 10 Mg Tab) 10 mg PO TID@0700,1200,1700 [facility] Stop: 10/27/20 11:59 Last Admin: 09/30/20 12:20 Dose: 10 mg Documented by: Losartan Potassium (Losartan Potassium 50 Mg Tab) [facility] Stop: 10/30/20 10:59 Ondansetron HCl (Ondansetron Inj 2 Mg/Ml 2 Ml Vial) 4 mg IV Q4H PRN PRN Reason: Nausea And Vomiting Stop: 10/26/20 09:51 Potassium Chloride (Potassium Chloride Crtab 20 Meq Tabcr) 20 meq PO QAM [facility] Stop: 10/27/20 08:59 Last Admin: 09/30/20 08:39 Dose: 20 meq Documented by: (1) Hypertension Hypertension type: unspecified Qualified Code(s): I10 - Essential (primary) hypertension
--- NOTE | 2020-09-30 17:23 | Progress Notes ---
DATE: 09/30/2020 SUBJECTIVE: I am seeing Mrs. Higuera in followup of abnormal movement with headache. Her MRA of head and neck were mildly impaired by movement, but grossly did not show any high-grade stenosis or aneurysmal dilatation. The patient indicates she has not had any recurrent events. PHYSICAL EXAMINATION: She is awake and alert. Speech and language are normal and her affect is appropriate. IMPRESSION AND PLAN: Abnormal movement associated with headache. The patient indicates she is flushed during these events. I wonder if she has episodes of accelerated hypertension and then is diffusely tremulous with the episode? I would defer to cardiology, but it raises the question whether or not she should be worked up for something like a pheochromocytoma. The records have not yet been received from [facility]. It was reported that she had an EEG and an MRI. The EEG on this admission did not show any seizure activity. We will follow with you.
[2020-10-01 04:08] VITALS: TEMP 98.1
[2020-10-01 06:45] LABS: BUN Creatinine Ratio 16.9 (10-20); Calcium 8.6 mg/dl (8.5-10.1); Creatinine Clr Calc Pharmacy 21.4 ml/min; Est GFR (African American) 36.3 ml/min; Est GFR (Non-African American) 31.3 ml/min; Magnesium 2.5 mg/dl (1.8-2.4); Potassium 4.2 mmol/L (3.5-5.1)
[2020-10-01 08:00] VITALS: O2SAT 93
[2020-10-01] MEDS: amLODIPine BESYLATE 5 MG TAB PO SCH (08:24)
[2020-10-01] MEDS: POTASSIUM CHLORIDE CRTAB 20 MEQ TABCR PO SCH (08:24)
[2020-10-01] MEDS: ATORVASTATIN 20 MG TAB PO SCH (08:24)
[2020-10-01] MEDS: APIXABAN 2.5 MG TAB PO SCH (08:24)
[2020-10-01] MEDS: ISOSORBIDE DINITRATE 10 MG TAB PO SCH ×2 (08:24→11:33)
[2020-10-01] MEDS: FUROSEMIDE 20 MG TAB PO SCH (08:25)
[2020-10-01] MEDS: hydrALAZINE TAB 50 MG TAB PO SCH (08:25)
[2020-10-01] MEDS: cloNIDine HCL 0.1 MG TAB PO SCH (08:25)
--- NOTE | 2020-10-01 09:25 | Cardiology Progress Note ---
Date of Service October 01, 2020 Assessment & Plan (1) Hypertension: Blood pressure remains labile but greatly improved.. With peaks prior to receiving clonidine. May consider additional 0.1 mg of clonidine in the afternoon or addition of losartan. Renal function is stable even if she does have some degree of renal artery stenosis a trial of ARB would be appropriate as long as renal function is followed closely. Continue amlodipine, isosorbide dinitrate, hydralazine, clonidine, furosemide. Renal artery duplex nondiagnostic. Okay to discharge to home from a cardiac standpoint on current medical regimen. My office will call to arrange follow-up with cardiology in 1 week. (2) Acute on chronic diastolic (congestive) heart failure: 5 status improved on furosemide 20 mg daily. Supplement potassium. (3) Mild mitral stenosis: Noted on echocardiogram earlier this month, relatively unchanged compared to prior transesophageal echocardiogram. (4) Splenic infarct: On anticoagulation with Eliquis (off label use) no definite atrial fibrillation never captured. Admission and Anticipated Discharge Date Admission Date: September 26, 2020 Subjective Patient seen and examined, chart reviewed. States that she feels terrific today and is anxious for discharge. No recurrent events of muscle spasms overnight. Denies chest pain, shortness of breath, palpitations, lightheadedness, dizziness or syncope. Telemetry reviewed: Normal sinus rhythm with left bundle branch block pattern Review of Systems Review of Systems: All systems reviewed & are unremarkable except as noted in HPI & below Physical Exam Physical Exam: General: Awake, alert and oriented x 3. No acute distress. HEENT: Normocephalic, atraumatic. Pupils equal, round and reactive to light and accommodation. Extraocular muscles are intact. Anicteric sclera. Moist mucous membranes. Neck: No JVD. No bruit. Cardiovascular: Regular. Positive S-4. Normal S-1 and S-2. No S-3. No murmurs or rubs. Pulmonary: Clear to auscultation B/L. No rales, rhonchi or wheezing Abdomen: Bowel sounds x 4, soft. No rebound, guarding or tenderness. No organomegaly. Extremities: No clubbing, cyanosis or edema. +2 pedal pulses bilaterally. Skin: Warm and dry. Results & Data ([facility]) Vital Signs (Past 12 Hours) Vital Signs Temp Pulse Pulse Resp BP Pulse Ox 10/01/20 07:59 36.7 C 54 L 18 171/56 H 93 10/01/20 04:00 36.7 C 50 L 16 163/72 H 98 10/01/20 00:05 50 L 09/30/20 22:35 36.5 C 53 L 18 156/65 H 96 (1) Hypertension Hypertension type: unspecified Qualified Code(s): I10 - Essential (primary) hypertension
--- NOTE | 2020-10-01 12:42 | Hospitalist Progress Note ---
Date of Service October 01, 2020 Assessment & Plan (1) Acute on chronic diastolic (congestive) heart failure: Acute on chronic diastolic heart failure next H/O Diastolic/valvular dysfunction CXR: Interval development of patchy bibasilar airspace opacities and trace bilateral pleural effusions. This favors a pneumonia and could be secondary to aspiration or viral process. ECHO: Mild concentric LVH, EF 55 to 60%. Moderate mitral regurgitation. Mild to moderate moderate mitral stenosis. Grade 1 diastolic dysfunction Received IV Lasix Monitor daily weight, I's and O's, registration Euvolemic currently Continue continue Lasix Appreciate cardiology input Monitor electrolytes and renal function Needs follow-up with cardiology upon discharge Abnormal movements involving the extremities Chronic--Episodic, >6 months Unclear etiology Had extensive work-up previously EEG:This EEG is normal and reveals no evidence for focal generalized encephalopathy no evidence for potential epileptogenic activity Head MRA: Stenosis of the proximal right A1 segment. Mild narrowing of the distal left vertebral artery. No evidence of aneurysm. Neck MRA:No definite occlusion or significant stenosis is seen on this limited exam. Further evaluation with CTA angiography of the neck might be considered if clinically indicated. Appreciate neurology input Advised to follow-up with neurology upon discharge (2) Hypertensive urgency: Hypertensive urgency Creatinine increased 0.2 mg BID Continue amlodipine, hydralazine, isosorbide Bp better (3) Pulmonary edema: Secondary to CHF Continue diuretics (4) Coronary artery disease: Continue home meds (5) Dyslipidemia: -Continue atorvastatin (6) Hypertension: -As above (7) Mild mitral stenosis: (8) Mild aortic stenosis: (9) Mitral regurgitation: (10) DM type 2 (diabetes mellitus, type 2): A1c = 6.7 on 09/07/2020 ISS while hospitalized (11) Splenic infarct: Continue Eliquis 2.5 mg p.o. twice daily due to weight, age and renal function. (12) CKD (chronic kidney disease), stage III: Cr at baseline Monitor DVT Px: Eliquis CODE STATUS: DNR/DNI Discharge Home with home health Admission and Anticipated Discharge Date Admission Date: September 26, 2020 Subjective Patient is seen and examined at bedside States feeling well today Offers no complaints Discussed with cardiology today Denies chest pain, dyspnea, dizziness, nausea, abdominal pain Updated patient's daughter over the phone Review of Systems Review of Systems: All systems reviewed & are unremarkable except as noted in HPI & below Physical Exam Physical Exam: Physical Exam: Vitals signs as noted above General Appearance:Moderately built and nourished, no apparent distress, Chromic ill appearing Head: normocephalic, Atraumatic Eyes: normal inspection, EOMI Neck: supple, Trachea midline Respiratory/Chest: Decreased breath sounds, CTA Cardiovascular: S1, S2, + murmur Abdomen/GI:Soft, Non tender, Bowel sounds present Extremities/Musculoskeletal:normal inspection, no edema Neurologic/Psych:AAOX3, grossly no focal neurological deficits Skin: normal color, warm Results & Data Results & Data ([facility]) Vital Signs (Past 12 Hours) Vital Signs Temp Pulse Pulse Resp BP Pulse Ox 10/01/20 08:00 61 10/01/20 07:59 36.7 C 54 L 18 171/56 H 93 10/01/20 04:00 36.7 C 50 L 16 163/72 H 98 Laboratory Results [facility] 10/01/20 05:36 Sodium 138 Potassium 4.2 D Chloride 104 Carbon Dioxide 30 BUN 25 H Creatinine 1.47 H Glucose 137 H Calcium 8.6 (1) Hypertension Hypertension type: unspecified Qualified Code(s): I10 - Essential (primary) hypertension
[2020-10-01 13:13] VITALS: BP 175/72; PULSE 54
--- NOTE | 2020-10-01 14:30 | Discharge Summary ---
Date of Service October 01, 2020 Admission HPI Per Admitting Provider This is an 89 yo F with PMHx of CHF/diastolic/valvular, posterior mitral annular calcification, hypertension, history of splenic infarction, CAD, hypertensive emergency, renal artery stenosis, likely chronic mesenteric ischemia given previous hx of abdominal/epigastric pain, DM type II, who presents with shortness of breath. Recent hospitalizations: 09/06/20-09/09/20 at [facility] for CHF exacerbation ~08/30/20 in [place] for reported pulmonary edema 10/23/19 in [facility] for chest pain, hypertensive emergency with BP of 220/120, required nicardipine gtt, and renal artery stenosis. 04/13/2019 at [facility] for splenic infarcts and pulmonary edema She reports shortness of breath worsened over the past day. Wears 2 L at baseline and needed to increase this to 4 to 5 L overnight due to orthopnea and shortness of breath at rest. Her breathing has improved since being on BiPAP here in the ER. Swelling in her feet and legs has worsened over the past few days. Patient is unsure what her baseline weight is, and has not weighed herself recently. She denies any specific chest pain, headache, flutter, palpitations, nausea or vomiting. She admits to having some epigastric abdominal pain currently, very mild. She lives at home with her daughter as she is . Denies any smoking or drinking alcohol. In the ER patient found to have blood pressure of 230/118, was given hydralazine 10 mg IV, Nitropaste 1 inch, Ativan 0.5 mg IV, and morphine sulfate IV. She missed her morning clonidine and amlodipine due to her symptoms. Troponin is elevated at 0.193, BNP = [id number]. Lasix 40 mg IV was given in the ER, will continue with aggressive diuresis. CXR showing pulmonary edema. The patient does seem to be having some rigors during my interview, will do infectious work- up to rule out underlying pneumonia. Principal Diagnosis Acute on chronic congestive heart failure Hypertensive Urgency Discharge Data Allergies Allergy/AdvReac Type Severity Reaction Status Date / Time Penicillins Allergy Intermediate Rash Unverified 09/26/20 08:04 Quinolones Allergy Intermediate Rash Unverified 09/26/20 08:04 aspirin AdvReac Mild burning in Unverified 09/26/20 08:04 stomach Consultations 09/26/20 08:21 ED Decision to Admit Stat 09/26/20 09:52 Consult Cardiology Routine 09/28/20 11:03 Consult Neurology Routine Procedures Performed CXR: Interval development of patchy bibasilar airspace opacities and trace bilateral pleural effusions. This favors a pneumonia and could be secondary to aspiration or viral process. ECHO: Mild concentric LVH, EF 55 to 60%. Moderate mitral regurgitation. Mild to moderate moderate mitral stenosis. Grade 1 diastolic dysfunction EEG:This EEG is normal and reveals no evidence for focal generalized e ncephalopathy no evidence for potential epileptogenic activity Head MRA: Stenosis of the proximal right A1 segment. Mild narrowing of the distal left vertebral artery. No evidence of aneurysm. Neck MRA:No definite occlusion or significant stenosis is seen on this limited exam. Further evaluation with CTA angiography of the neck might be considered if clinically indicated. Ordered Studies 09/30/20 07:00 MR angio head wo con Urgent MR angio neck wo con Urgent 09/30/20 10:30 US duplex renal artery Routine Hospital Course (1) Acute on chronic diastolic (congestive) heart failure: Acute on chronic diastolic heart failure next H/O Diastolic/valvular dysfunction CXR: Interval development of patchy bibasilar airspace opacities and trace bilateral pleural effusions. This favors a pneumonia and could be secondary to aspiration or viral process. ECHO: Mild concentric LVH, EF 55 to 60%. Moderate mitral regurgitation. Mild to moderate moderate mitral stenosis. Grade 1 diastolic dysfunction Received IV Lasix Monitor daily weight, I's and O's, registration Euvolemic currently Continue continue Lasix Appreciate cardiology input Monitor electrolytes and renal function Needs follow-up with cardiology upon discharge Abnormal movements involving the extremities Chronic--Episodic, >6 months Unclear etiology Had extensive work-up previously EEG:This EEG is normal and reveals no evidence for focal generalized encephalopathy no evidence for potential epileptogenic activity Head MRA: Stenosis of the proximal right A1 segment. Mild narrowing of the distal left vertebral artery. No evidence of aneurysm. Neck MRA:No definite occlusion or significant stenosis is seen on this limited exam. Further evaluation with CTA angiography of the neck might be considered if clinically indicated. Appreciate neurology input Advised to follow-up with neurology upon discharge (2) Hypertensive urgency: Hypertensive urgency Creatinine increased 0.2 mg BID Continue amlodipine, hydralazine, isosorbide Bp better (3) Pulmonary edema: Secondary to CHF Continue diuretics (4) Coronary artery disease: Continue home meds (5) Dyslipidemia: -Continue atorvastatin (6) Hypertension: -As above (7) Mild mitral stenosis: (8) Mild aortic stenosis: (9) Mitral regurgitation: (10) DM type 2 (diabetes mellitus, type 2): A1c = 6.7 on 09/07/2020 ISS while hospitalized (11) Splenic infarct: Continue Eliquis 2.5 mg p.o. twice daily due to weight, age and renal function. (12) CKD (chronic kidney disease), stage III: Cr at baseline Monitor DVT Px: Eliquis CODE STATUS: DNR/DNI Discharge Home with home health Total Time Total Time Spent Total Time Spent (In Minutes): 43 minutes Total Time Includes: Examination of the Patient, Discharge Planning, Medication Reconciliation, 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 With Other Providers and Other Discharge Plan Discharge Items Patient Disposition: Home - Home Health Services Reason For Visit: CHF EXACERBATIOM,HYPERTENSIVE URGENCY Discharge Diagnosis: Acute on chronic congestive heart failure Hypertension Activity: Per Instructions section Exercise/Sports: Gradually increase as tolerated Non-emergency contact: Primary Care Provider and 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 Saha in 1 week as recommended Follow-up with your neurologist Dr. Ashli Mccord in 4 weeks Seek immediate medical attention if your symptoms reoccur or worsen Please take all medications as instructed on discharge list below. Please call if you have any questions or problems. You can reach a [facility] hospitalist on duty at [facility] 24 hours a day by calling [phone] Call your Primary Care doctor if any of the following symptoms or problems start or get worse: * Shortness of breath or difficulty breathing * Wake up at night short of breath * Chest pain * Cough * Swelling of your hands, feet, or legs * More fatigued or tired with your normal activity * Palpitations - sudden fast heart beats WEIGHT * Weigh yourself every morning after using the bathroom. * Use the same scale. * Wear the same amount of clothing. * Write your weight down on a chart. * Call your Primary Care doctor if you gain more than 2-3 pounds in 1-2 days. MEDICATIONS * Use this discharge instruction sheet for medication instructions. * Take your medications at the time your doctor ordered. * Do not skip a dose of your medicines. * If you miss a dose of medicine, take it as soon as possible, but DO NOT DOUBLE A DOSE. * Read your medicine information when you get home. * Know all of the side effects of your medicine. If in doubt, ask your pharmacist * Call your Primary Care doctor's office if you have any side effects. * Be sure all of your doctors know what medicine and herbs you take (including cold, flu, and herbal medicine). Take the following with you to your follow-up doctor appointments: * Weight Chart * Medication List * List of questions Do not drink excessive alcohol, beer or wine. Pending Studies at Discharge: No Stand-Alone Forms: My [facility], Smoking Cessation Medications and DC Order Prescriptions: Continued amlodipine 10 mg Tablet 10 mg PO QAM RF: 0 atorvastatin 20 mg Tablet 20 mg PO QAM Qty: 30 RF: 1 hydralazine 100 mg tablet 100 mg PO TID Qty: 90 RF: 1 sennosides-docusate sodium [Senna with Docusate Sodium] 8.6-50 mg Tablet 1 tab-cap PO BID RF: 0 pantoprazole 40 mg Tablet,Delayed Release (Dr/Ec) 40 mg PO DAILYBB RF: 0 Eliquis 5 mg Tablet 2.5 mg PO BID Qty: 0 RF: 0 isosorbide dinitrate 10 mg Tablet 10 mg PO TID RF: 0 furosemide [Lasix] 20 mg Tablet 20 mg PO QAM RF: 0 potassium chloride [Klor-Con M20] 20 mEq tablet,ER particles/crystals 20 meq PO QAM RF: 0 Changed clonidine HCl 0.1 mg Tablet 0.2 mg PO BID Qty: 120 RF: 0 Discharge Orders: Discharge Order (Routine); Ordered 10/01/20 Ordered By: Tolu Sanz/Other Patient Handouts: Heart Failure Meds, What Is Heart Failure, Heart Failure Signs of Flare-Up, Heart Failure: Tracking Your Weight, Heart Failure: Being Active Admission Data Admit Date/Time: 09/26/20 08:32 Attending Provider: Tolu Lagunas Admit Provider: Diamond Wyman Primary Care Provider: Dakota Meléndez Other Providers: Iraida Anderson ; Tye Saha ; Ashli Mccord ; [facility],Home Healthcare Other Interventions: Discharge Summary Assessment (RN) Last Done: 10/01/20 13:13
== END 2020-10-01 14:58 | disposition home health service (06) | DRG 291 ==
LOC: ED 06:42 → SUATTDRO 08:32 → 2S 08:32
DX: R09.02 Hypoxemia; I50.33 Acute on chronic diastolic (congestive) heart failure; N18.30 Chronic kidney disease, stage 3 unspecified; I08.0 Rheumatic disorders of both mitral and aortic valves; Z79.01 Long term (current) use of anticoagulants; Z66 Do not resuscitate; G25.9 Extrapyramidal and movement disorder, unspecified; Z86.73 Personal history of transient ischemic attack (TIA), and cerebral infarction without residual deficits; I13.0 Hypertensive heart and chronic kidney disease with heart failure and stage 1 through stage 4 chronic kidney disease, or unspecified chronic kidney disease; I16.0 Hypertensive urgency; Z88.0 Allergy status to penicillin; Z87.891 Personal history of nicotine dependence; I70.1 Atherosclerosis of renal artery; R00.0 Tachycardia, unspecified; R51.9 Headache, unspecified; I44.7 Left bundle-branch block, unspecified; I25.10 Atherosclerotic heart disease of native coronary artery without angina pectoris; Z79.82 Long term (current) use of aspirin; E11.9 Type 2 diabetes mellitus without complications; I74.8 Embolism and thrombosis of other arteries; E78.5 Hyperlipidemia, unspecified

== ENCOUNTER 2020-10-13 16:15 | Inpatient (IN) ==
[2020-10-13 17:20] LABS: Hematocrit (blood only) 28.8 % (37-47); Hemoglobin 9.6 g/dL (12.0-16.0); Mean Corpuscular Hemoglobin 24.1 pg (25-34); Mean Corpuscular Hgb Conc 33.3 g/dL (32-36); Mean Corpuscular Volume 72.4 fL (80-100); Mean Platelet Volume 8.6 fL (7.4-10.4); Platelet Count 319 K/uL (130-400); RDW Coefficient of Variation 16.7 % (11.5-14.5); RDW Standard Deviation 44.2 fL (36.4-46.3); Red Blood Count 3.98 M/uL (4.2-5.4); White Blood Count 13.93 K/uL (4.8-10.8)
[2020-10-13 17:36] LABS: INR 1.1 (0.9-1.1); Partial Thromboplastin Ratio 1.1; Partial Thromboplastin Time 29.6 Seconds (21.0-31.0); Prothrombin Time 10.9 Seconds (9.0-12.0)
[2020-10-13 17:42] LABS: Albumin Level 2.9 gm/dl (3.4-5.0); BUN Creatinine Ratio 20.5 (10-20); Calcium 7.9 mg/dl (8.5-10.1); Creatinine Clr Calc Pharmacy 25.7 ml/min; Est GFR (African American) 38.8 ml/min; Est GFR (Non-African American) 33.5 ml/min; Potassium 3.7 mmol/L (3.5-5.1)
[2020-10-13 17:45] LABS: Albumin Globulin Ratio 0.9 (0.9-2); Bilirubin,Total 0.3 mg/dl (0.2-1); Globulin 3.1 gm/dl (2.5-4.0)
[2020-10-13] MEDS ORDERED: ACETAMINOPHEN 1,000 MG/100 ML VIAL IV STA (17:54)
[2020-10-13] MEDS ORDERED: metroNIDAZOLE 500 MG/100 ML BAG IV STA (17:59)
[2020-10-13] MEDS ORDERED: cefOXitin 2,000 MG/60 ML BAG IV STA (17:59)
[2020-10-13] MEDS ORDERED: SODIUM CHLORIDE 0.9% 1000ML 1,000 ML IV SCH (18:00)
--- NOTE | 2020-10-13 18:33 | CT Scan Report ---
CT SCAN OF THE ABDOMEN AND PELVIS WITHOUT CONTRAST CLINICAL HISTORY: GIB, abd pain COMPARISON STUDY: March 21, 2019 TECHNIQUE: CT scan of the abdomen and pelvis was performed from the lung bases to the proximal femurs . Images are reviewed in the axial, sagittal, and coronal planes. IV contrast was not administered fo r this examination. A dose lowering technique was utilized adhering to the principles of ALARA. CT DOSE: 701.91 mGy.cm FINDINGS: Lower chest: Moderate right pleural effusion. Patchy airspace opacities at bilateral bases might repr esent atelectasis or pneumonia. Evaluation is limited due to motion artifact. Severe calcifications of the mitral annulus and calcification of the aortic valve are seen. Liver: The unenhanced liver is normal in size, contour, and attenuation. There is no intrahepatic jesika iary ductal dilatation. Gallbladder: Gallbladder is possibly fluid-filled. No definite gallstones are seen. Evaluation is sig nificantly limited due to motion artifact and lack of IV contrast. Spleen: Spleen is not enlarged. Previously seen splenic infarct is no longer visualized. Pancreas: Visualized portion of the pancreas shows no evidence of focal lesions on this significantly limited exam. Adrenal glands: Unremarkable. Kidneys: No hydronephrosis or nephrolithiasis. Atrophic left kidney. Bowel: Small to moderate hiatal hernia. No significant dilatation of the bowel loops are seen. No sara endix visualized. Evaluation is significantly limited due to lack of contrast and motion artifact. Peritoneum: There is no intraperitoneal free air or abdominal ascites. Vasculature: The abdominal aorta is normal in course and caliber. Severe calcifications of aortic wal l are seen. Adenopathy: None. Pelvic viscera: Urinary bladder is fluid-filled. Possible focal thickening of the inferior urinary bl adder wall is seen on sagittal reconstruction. Evaluation is limited due to motion artifact. Uterus is not seen, probably surgically absent. Significant motion artifact within pelvic region limi ts evaluation. Skeletal structures: Multilevel degenerative changes of the spine. No definite aggressive osseous les ions are seen. IMPRESSION: Gallbladder is fluid-filled without intraluminal calculi to suggest cholelithiasis. Limited exam. Fur ther evaluation with gallbladder ultrasound might be considered if clinically indicated. Redemonstration of atrophic left kidney. Questionable focal thickening of inferior urinary bladder wall, could be artifactual due to motion ar tifact or represent urinary bladder wall lesion. Please correlate above-mentioned findings was prior history. Urinary bladder ultrasound might be considered for further characterization if clinically in dicated. Previously seen splenic infarct appear less conspicuous. Atherosclerosis. Moderate right pleural effusion. Hiatal hernia. ACT 112: Negative or not required by law. The above report was generated using voice recognition software. It may contain grammatical, syntax o r spelling errors. Electronically signed by: Jihan Hamilton DO 10/13/2020 6:31 PM
--- NOTE | 2020-10-13 20:53 | Ultrasound Report ---
ULTRASOUND RIGHT UPPER QUADRANT ABDOMEN CLINICAL HISTORY: Generalized abdominal pain. COMPARISON STUDY: Abdominal CT dated 10/13/2020 TECHNIQUE: Real-time, grayscale, and color flow sonography of the right upper quadrant of the abdomen was performed. Images are reviewed in the transverse and longitudinal planes. FINDINGS: Liver: The liver is normal in size and echotexture. There is no intrahepatic biliary ductal dilatatio n. The main portal vein is patent. Gallbladder: There is biliary sludge. No shadowing Gallstones are identified. There is no gallbladder wall thickening or pericholecystic fluid. A sonographic Prado's sign is reportedly absent. The comm on bile duct measures up to 0.5 cm in diameter. Pancreas: Visualized portions of the pancreatic head and body are normal in appearance. The splenic v ein is patent. Right kidney: Survey images of the right kidney demonstrate cortical atrophy. Echotexture is normal. There is no hydronephrosis. Ascites: None. Pleural spaces: There is trace right pleural effusion. IMPRESSION: 1. There is biliary sludge. No shadowing gallstones are identified and there is no sonographic eviden ce of acute cholecystitis. 2. Trace right pleural effusion. ACT 112: Negative or not required by law. Electronically signed by: Abran Chu M.D. 10/13/2020 8:51 PM
[2020-10-13] MEDS ORDERED: D5W AND NSS 1,000 ML IV SCH (21:40)
[2020-10-13] MEDS ORDERED: ONDANSETRON INJ 2 MG/ML 2 ML VIAL IV PRN (21:40)
[2020-10-13] MEDS ORDERED: NITROGLYCERIN SL 0.4 MG/TAB TAB SL PRN (21:40)
[2020-10-13] MEDS ORDERED: PANTOprazole 80 MG in DEXTROSE 5% 100 ML IV ONE (21:40)
[2020-10-13] MEDS ORDERED: PANTOPRAZOLE BOLUS/DRIP 1 EA IV STA (21:40)
[2020-10-13] MEDS ORDERED: GLUCOSE 10 TABS/TUBE PO PRN (22:00)
[2020-10-13] MEDS ORDERED: CARBOHYDRATES FOR HYPOGLYCEMIA PO PRN (22:00)
[2020-10-13] MEDS ORDERED: DEXTROSE 50% 50 ML SYRINGE IV PRN (22:00)
[2020-10-13] MEDS ORDERED: GLUCOSE 40% GEL 15 GM TUBE PO PRN (22:00)
[2020-10-13] MEDS ORDERED: GLUCAGON FOR INJ 1 MG VIAL IM PRN (22:00)
[2020-10-13] MEDS: PANTOprazole 40 MG in DEXTROSE 5% 100 ML IV SCH (22:28)
[2020-10-13] MEDS: cloNIDine HCL 0.1 MG TAB PO SCH (22:30)
[2020-10-13] MEDS: hydrALAZINE TAB 50 MG TAB PO SCH (22:30)
[2020-10-13] MEDS: ISOSORBIDE DINITRATE 10 MG TAB PO SCH (22:30)
[2020-10-13] MEDS: INSULIN ASPART 100 UNITS/ML 3 ML PEN SC SCH (22:39)
[2020-10-14] MEDS: PANTOprazole 40 MG in DEXTROSE 5% 100 ML IV SCH ×3 (03:30→15:34)
[2020-10-14 05:42] LABS: Basophils # (auto) 0.02 K/uL (0-0.2); Basophils % (auto) 0.2 %; Eosinophils # (auto) 0.16 K/uL (0-0.5); Hematocrit (blood only) 28.3 % (37-47); Immature Granulocytes # (auto) 0.02 K/uL (0.00-0.02); Immature Granulocytes % (auto) 0.2 %; Lymphocytes # (auto) 0.96 K/uL (1.2-3.4); Lymphocytes % (auto) 11.9 %; Mean Corpuscular Hemoglobin 23.7 pg (25-34); Mean Corpuscular Hgb Conc 31.8 g/dL (32-36); Mean Corpuscular Volume 74.7 fL (80-100); Mean Platelet Volume 8.7 fL (7.4-10.4); Monocytes # (auto) 0.87 K/uL (0.11-0.59); Monocytes % (auto) 10.8 %; Neutrophils # (auto) 6.02 K/uL (1.4-6.5); Neutrophils % (auto) 74.9 %; Platelet Count 315 K/uL (130-400); RDW Coefficient of Variation 16.7 % (11.5-14.5); RDW Standard Deviation 45.9 fL (36.4-46.3); Red Blood Count 3.79 M/uL (4.2-5.4); White Blood Count 8.05 K/uL (4.8-10.8)
[2020-10-14 06:08] LABS: BUN Creatinine Ratio 16.5 (10-20); Calcium 8.1 mg/dl (8.5-10.1); Creatinine Clr Calc Pharmacy 23.2 ml/min; Est GFR (African American) 37.5 ml/min; Est GFR (Non-African American) 32.4 ml/min; Magnesium 2.2 mg/dl (1.8-2.4); Potassium 3.4 mmol/L (3.5-5.1)
--- NOTE | 2020-10-14 08:00 | History and Physical Report ---
DATE OF ADMISSION: 10/13/2020 CHIEF COMPLAINT: GI bleed. HISTORY OF PRESENT ILLNESS: This is an 89-year-old female with past medical history significant for COPD, chronic bronchitis, heart failure due to valvular disease, hypertension, GERD without esophagitis, female stress incontinence, history of pulmonary embolism, insomnia, history of splenic infarct, history of CAD, history of hypertensive emergency, renal artery stenosis, likely chronic mesenteric ischemia, history of type 2 diabetes, presents with GI bleed. The patient was recently in the hospital for diastolic CHF exacerbation, received IV Lasix. At that time, she also has abnormal movements involving the extremities. EEG was normal. Head and neck MRI was okay. Seen by Neurology.Last admission her clonidine was increased to 0.2 mg b.i.d. for hypertensive urgency. She is on Eliquis for splenic infarct and pulmonary embolism in 1970s. Lives with her daughter, ambulates with a walker, comes in today because of GI bleed. The patient has 2-3 episodes of bright red blood per rectum as per daughter and she was brought in here. The patient is currently resting comfortably, has abnormal movements in all extremities, which seems to be chronic now. The patient denies any abdominal pain. She is nauseous, no vomiting, no chest pain, no shortness of breath, no cough, no fever, no chills. Normal bladder movements. No headache, no blurred vision, no earache, no runny nose, no sore throat. Tired. Feeling hungry. Hemodynamically stable. The patient is DNR/DNI as per the daughter and the daughter is okay for any scopes if needed. ALLERGIES: PENICILLINS, QUINOLONES, ASPIRIN. PAST MEDICAL HISTORY: As mentioned above. PAST SURGICAL HISTORY: Lasik surgery, appendectomy, left rotator cuff repair, gastric ulcer repair, total hysterectomy. MEDICATIONS: The patient is on amlodipine 10 mg p.o. a.m., atorvastatin 20 mg p.o. a.m., clonidine 0.2 mg p.o. b.i.d., Eliquis 2.5 mg p.o. b.i.d., Lasix 20 mg p.o. a.m., hydralazine 100 mg p.o. t.i.d., isosorbide dinitrate 10 mg p.o. t.i.d., Protonix 40 mg p.o. daily, potassium chloride 20 mEq p.o. a.m., Senokot- S 1 tablet p.o. b.i.d. FAMILY HISTORY: Significant for father had liver cancer, NH; mother had stroke, hypertension, diabetes; sister has COPD, diabetes, stroke. SOCIAL HISTORY: Lives with daughter. Former smoker, smoked 1.5 packs a day for 40 years, quit smoking 30 years ago. No alcohol use. No drug use. REVIEW OF SYSTEMS: As per HPI, rest of the review of systems negative. PHYSICAL EXAMINATION: GENERAL: The patient is old and frail, not in acute distress. Has abnormal movements of her extremities. VITAL SIGNS: Temperature 36.9, pulse 58, respiration rate 22, blood pressure 171/77, oxygen 96% on 2 liters. HEENT: Pupils equal, round and reactive to light. Oral mucosa moist. NECK: No JVD or neck masses. CARDIOVASCULAR: S1, S2 heard. Regular rate and rhythm. No murmur, no gallop. RESPIRATORY: Normal AP diameter. No accessory muscle use. No wheezing. No crackles. ABDOMEN: Soft, bowel sounds present, nontender, nondistended. CENTRAL NERVOUS SYSTEM: Alert and oriented. Speech clear. No facial droop. Has some abnormal movements of her extremities. Insight is good. EXTREMITIES: No edema, no erythema. LABORATORY DATA: WBC 13.9, hemoglobin 9.6, hematocrit 28.8, platelets 319. PT 10.9, INR 1.1, APTT 29.6. Sodium 140, potassium 3.7, chloride 109, bicarbonate 22, BUN 29, creatinine 1.39, serum glucose 146, calcium 7.9, total bilirubin 0.3, AST 12, ALT 13, alkaline phosphatase 128. SARS-CoV-2 PCR negative. IMAGING: CT of abdomen and pelvis; gallbladder is fluid filled without intraluminal calculus or cholelithiasis. For further evaluation, gallbladder ultrasound might be considered. Questionable focal thickening of inferior urinary bladder wall, could be artifactual due to motion artifact or representing urinary bladder wall lesion; urinary bladder ultrasound will be considered for further characterization if clinically indicated. Previously seen splenic infarct appears less conspicuous. Atherosclerosis, moderate right pleural effusion. ASSESSMENT AND PLAN: This 89-year-old female presents with gastrointestinal bleed. 1. Gastrointestinal bleed: The patient is on Eliquis, which is held. Follow the stool for hemoccult. Hemoglobin is 9.6, which was 10.3 a couple of weeks ago. We will follow hemoglobin and hematocrit. Blood consent obtained. Start on Protonix drip, n.p.o., gentle fluids. Consult Gastrointestinal in the a.m. and closely monitor in the telemetry floor. 2. Chronic valvular diastolic congestive heart failure: The patient on Lasix 20 mg daily with potassium supplement, which we will continue. The patient is getting D5 normal saline at 50 mL per hour. We will monitor for any volume overload. The patient has a history of pulmonary edema in the past. 3. Abnormal movements involving the extremities, chronic greater than 6 months: Unclear etiology. Seems to have extensive workup. Last admit EEG and MRA of the head and neck. Follow up with neurology. 4. History of hypertension, history of hypertensive emergency: Continue home medication of clonidine, amlodipine, hydralazine and isosorbide. We will monitor the blood pressure. 5. History of coronary artery disease: Continue her home medications. 6. Hyperlipidemia: On statin. 7. History of diabetes: Not on any medications. Recent HbA1c of 6.7. We will place her on insulin sliding scale while in the hospital. 8. History of splenic infarct: On Eliquis, which is held for gastrointestinal bleed. 9. Chronic kidney disease stage III: Creatinine of 1.39, which seems to be at baseline. 10. Deep vein thrombosis prophylaxis: We will place her on sequential compression devices. 11. Code status: Do not resuscitate/do not intubate. DISPOSITION: Admit to telemetry floor. Expect discharge home and follow up with her family doctor. PT/OT prior to discharge. Social service to help with discharge planning. Job ID: [id number] [facility]
[2020-10-14] MEDS: ATORVASTATIN 20 MG TAB PO SCH (08:13)
[2020-10-14] MEDS: FUROSEMIDE 20 MG TAB PO SCH (08:13)
[2020-10-14] MEDS: amLODIPine BESYLATE 5 MG TAB PO SCH (08:14)
[2020-10-14] MEDS: ISOSORBIDE DINITRATE 10 MG TAB PO SCH ×3 (08:14→17:59)
[2020-10-14] MEDS: POTASSIUM CHLORIDE CRTAB 20 MEQ TABCR PO SCH (08:14)
[2020-10-14] MEDS: hydrALAZINE TAB 50 MG TAB PO SCH ×3 (08:15→20:51)
[2020-10-14] MEDS: cloNIDine HCL 0.1 MG TAB PO SCH ×2 (08:15→20:51)
[2020-10-14] MEDS: INSULIN ASPART 100 UNITS/ML 3 ML PEN SC SCH ×4 (08:18→21:00)
--- NOTE | 2020-10-14 08:49 | Gastrointestinal Consultation ---
Date of Consultation October 14, 2020 Assessment & Plan (1) Rectal bleeding: Rectal bleeding and diarrhea likely represent an episode of acute on chronic ischemic colitis as hx of chronic ischemic colitis is mentioned on her documentation; though no CT evidence of significant bowel wall edema, thus likely mild. She is stable, minimally tender, with slight decrease in Hb, and no further rectal bleeding or diarrhea since arrival. Would avoid endoscopy unless clear evidence of hemodynamically significant GI bleeding. Would cover with broad spectrum antibiotics for prevention of translocation of bacteria. Clear liquids po. Will follow along. Present on Admission?: Yes (2) Diarrhea: Supervising Physician Co-Signing Physician Notes I have personally seen and examined the patient with DEVIN Alarcon. Her note reflects my exam and findings. I agree with her impression and plan. No further diarrhea or bleeding. She denies abdominal pain. Advance diet as t olerates. Pramod Leonard M.D. History of Present Illness Reason for Consultation: GI Bleed Requesting Physician: Dr. Barry Attending Physician: Iraida Anderson MD History of Present Illness Ms. Higuera is an 89 yr old female pt of Dr. Banda with a hx of DM-2, COPD, chronic bronchitis, CAD, Valvular heart disease, CHF, HTN, GERD, PE, splenic infarct, renal artery stenosis, likely who was brought to the ED yesterday for rectal bleeding. She is maintained on Eliquis and Pantoprazole 40mg daily. Though she has an accent is slightly difficult to understand, she is awake, alert, oriented and able to answer questions. She indicates that she had diarrhea all day long yesterday, diffuse abdominal pain and once she passed a bright red bloody BM. Her RN today tells me that she has not passed further BMs since arrival. She has not had any nausea or vomiting. She indicates that the diarrhea was a new problem, denying any ongoing problems with nausea, vomiting, diarrhea or constipation. On arrival, CTAP did not suggest any bowel abnormalities but there was mention of motion artifact and it was completed without IV or oral contrast. Hb was 9.6 on arrival (baseline approx 10-11) and this morning Hb is 9.0. BUN was minimally elevated at 29 on arrival, 24 this morning. She is awke, alert, oriented and hemodynamically stable without hypotension or tachycardia. She appears comfortable and is mildly tender in the LLQ. Allergies Allergy/AdvReac Type Severity Reaction Status Date / Time Penicillins Allergy Intermediate Rash Verified 10/13/20 18:13 Quinolones Allergy Intermediate Rash Verified 10/13/20 18:13 aspirin AdvReac Mild burning in Verified 10/13/20 18:13 stomach Home Medications Medication Instructions Recorded Confirmed Type amlodipine 10 mg PO QAM 03/31/19 10/13/20 History atorvastatin 20 mg PO QAM #30 tab 04/12/19 10/13/20 Rx hydralazine 100 mg PO TID #90 tab 04/12/19 10/13/20 Rx pantoprazole 40 mg PO DAILYBB 09/06/20 10/13/20 History sennosides-docusate sodium [Senna 1 tab-cap PO BID 09/06/20 10/13/20 History with Docusate Sodium] Eliquis 2.5 mg PO BID #0 tab 09/09/20 10/13/20 Rx furosemide [Lasix] 20 mg PO QAM 09/26/20 10/13/20 History isosorbide dinitrate 10 mg PO TID 09/26/20 10/13/20 History potassium chloride [Klor-Con M20] 20 meq PO QAM 09/26/20 10/13/20 History clonidine HCl 0.2 mg PO BID #120 tab 10/01/20 10/13/20 Rx Patient History Medical History CHF due to valvular disease Coronary artery disease DM type 2 (diabetes mellitus, type 2) Do not resuscitate status Dyslipidemia Goals of care, counseling/discussion LBBB (left bundle branch block) Mild aortic stenosis Mild mitral stenosis Mitral regurgitation Surgical History H/O repair of left rotator cuff H/O varicose vein stripping History of appendectomy History of hysterectomy Social History Smoking Status: Never smoker Tobacco Type: Cigarettes Hx Alcohol Use: No Hx Substance Use: No Preferred Language: Divehi 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 Ability: Effective Research Fellow Required: No Beliefs That Will Affect Care: None marital status: / Current Living Situation: Family Current Living Situation Comment: lives w/ dtr Other Information That Helps Us Care for You: No Feels Safe at Home: Yes Safety Concerns: Feels Safe At This Time Assistive Devices: Oxygen - Continuous Review of Systems Review of Systems: ROS: Gen: +weakness; Denies fevers, weight loss Eyes: No eye redness, or pain, no recent vision changes Resp: + mild SOB; no cough Cardio: No palpitations/irregular beats, no chest pain GI: + diffuse abdominal pain; no nausea/vomiting; + red rectal bleeding once yesterday : Denies pain on urination Skin: No jaundice, itching or new rashes Physical Exam Constitutional: WD/WN, vitals as above Eyes: PERRL, conjunctivae normal, anicteric sclerae ENMT: external ear and nose normal, oropharynx normal Neck: trachea midline, no thyromegaly Respiratory: normal respiratory effort, lungs clear to auscultation Cardiovascular: Rate/Rhythm: regular rate and regular rhythm Heart Sounds: + murmur (hx valvular dx noted; no murmur appreciated) Extremities: + edema (Rt lower leg edema - pt indicates it is chronic) Gastrointestinal (Abdomen): Inspection/Auscultation: abdomen normal to inspection and normal bowel sounds; abdomen not distended Percussion/Palpation: + abdomen tender (LLQ) and abdomen soft Musculoskeletal: no cyanosis or clubbing, extremities motor strength 5/5 Skin: no rashes, warm and dry Neurologic: PERRL, EOMI, accommodation nl, no face palsy, no dysarthria Psychiatric: A+Ox3, euthymic affect Lymphatic: no cervical or axillary lymphadenopathy Results & Data ([facility]) Vital Signs (Past 12 Hours) Vital Signs Temp Pulse Pulse Resp BP BP BP 10/14/20 07:55 36.4 C L 77 20 126/93 10/14/20 02:49 36.5 C 54 L 22 180/71 H 10/14/20 00:12 65 10/13/20 21:40 36.8 C 68 22 198/66 H 10/13/20 21:00 56 L 24 180/56 H Pulse Ox 10/14/20 07:55 96 10/14/20 02:49 97 10/14/20 00:12 10/13/20 21:40 97 10/13/20 21:00 98 Laboratory Results WBC 8, Hb 9, Hct 28, Plts 315, Na 144, K 3.4, BUN 24, Cr 1.43, Glucose 151, INR 1.1. Diagnostic Findings US 10/13/20: 1. There is biliary sludge. No shadowing gallstones are identified and there is no sonographic evidence of acute cholecystitis. 2. Trace right pleural effusion. CTAP, non contrast on 10/13/20: Gallbladder is fluid-filled without intraluminal calculi to suggest cholelithiasis. Limited exam. Further evaluation with gallbladder ultrasound might be considered if clinically indicated. Redemonstration of atrophic left kidney. Questionable focal thickening of inferior urinary bladder wall, could be artifactual due to motion artifact or represent urinary bladder wall lesion. Please correlate above-mentioned findings was prior history. Urinary bladder ultrasound might be considered for further characterization if clinically indicated. Previously seen splenic infarct appear less conspicuous. Atherosclerosis. Moderate right pleural effusion. Hiatal hernia.
[2020-10-14] MEDS: POTASSIUM CHLORIDE / WTR 10 MEQ/100 ML PLCT IV SCH ×2 (09:04→11:24)
[2020-10-14 11:22] LABS: Hematocrit (blood only) 29.1 % (37-47); Hemoglobin 9.6 g/dL (12.0-16.0)
--- NOTE | 2020-10-14 14:52 | Hospitalist Progress Note ---
Date of Service October 14, 2020 Assessment & Plan (1) Rectal bleeding: Likely secondary to on chronic ischemic colitis No CT evidence of significant bowel wall edema Condition has been improving No drop in hemoglobin Has been on intravenous PPI twice a day will change to oral PPI once a day Appreciate GI input and recommendation-not for any scope We will advance diet as tolerated and monitor H&H (2) CHF due to valvular disease: Has controlled CHF Echo of the heart was done during her recent admission to the hospital We will continue her home medications (3) Hypertension: Has had episode of hypertensive urgency during her recent admission Blood pressure medications were adjusted by the aerospace manager Blood pressure remains on the upper side of normal We will monitor (4) DM type 2 (diabetes mellitus, type 2): Has been on sliding scale insulin coverage (5) CKD (chronic kidney disease), stage III: Creatinine remains at baseline at 1.39 We will monitor PRP History of abnormal movements of the limbs Has had evaluation by neurologist during her last admission and apparent imaging studies are unremarkable and the EEG was negative No more episode noted CAD No acute cardiac symptoms We will continue current medications DVT prophylaxis Has been on Eliquis-on hold now SCDs for now Admission and Anticipated Discharge Date Admission Date: October 13, 2020 Subjective 10/14/2020 The patient was seen and examined in telemetry unit She has significant comorbid medical conditions as mentioned in history and physical presents to hospital with an episode of bright red rectal bleed Her bleeding seems to be improved since this morning and she denies any significant symptoms of abdominal pain, nausea and/or vomiting Denies any other symptoms and has been feeling much better Review of Systems Review of Systems: All systems reviewed and are unremarkable except as noted below Gastrointestinal: + blood in stools (Seems to be improving. No abdominal pain nausea no vomiting) Physical Exam Physical Exam: Lying in bed comfortably Constitutional: average body habitus; not ill appearing Eyes: PERRL, conjunctivae normal, anicteric sclerae ENMT: external ear and nose normal, oropharynx normal Neck: trachea midline, no thyromegaly Respiratory: no respiratory distress Auscultation: + diminished lung sounds and + crackles (Minimal crackles at the bases) Cardiovascular: Heart Sounds: + murmur (2/6 ESM over precordium) Extremities: + edema (Trace edema bilaterally) Gastrointestinal (Abdomen): Inspection/Auscultation: normal bowel sounds; abdomen not distended Percussion/Palpation: + abdomen tender (Mildly tender left lower quadrant) and abdomen soft Musculoskeletal: No acute arthritis in any joint Neurologic: Motor/Sensory: normal movement Alert, awake and oriented x3. Generally weak but no focal neuro deficit Lymphatic: no cervical or axillary lymphadenopathy Results & Data Results & Data ([facility]) Vital Signs (Past 12 Hours) Vital Signs Temp Pulse Resp BP Pulse Ox 10/14/20 12:16 36.4 C L 54 L 20 157/56 H 96 10/14/20 07:55 36.4 C L 77 20 126/93 96 10/14/20 02:49 36.5 C 54 L 22 180/71 H 97 Laboratory Results Short CBC 10/13/20 10/14/20 10/14/20 Range/Units 17:12 05:08 05:08 WBC 13.93 H 8.05 (4.8-10.8) K/uL Hgb 9.6 L Cancelled 9.0 L (12.0-16.0) g/dL Hct 28.8 L Cancelled 28.3 L (37-47) % Plt Count 319 315 (130-400) K/uL 10/14/20 Range/Units 11:02 WBC (4.8-10.8) K/uL Hgb 9.6 L (12.0-16.0) g/dL Hct 29.1 L (37-47) % Plt Count (130-400) K/uL BMP 10/13/20 10/14/20 17:12 05:08 Sodium 140 140 Potassium 3.7 3.4 L Chloride 109 H 109 H Carbon Dioxide 22 24 BUN 29 H 24 H Creatinine 1.39 H 1.43 H Glucose 146 H 151 H Calcium 7.9 L 8.1 L Liver Function 10/13/20 Range/Units 17:12 Total Bilirubin 0.3 (0.2-1) mg/dl AST 12 L (15-37) U/L ALT 13 (12-78) U/L Alkaline Phosphatase 128 H (45-117) U/L Albumin 2.9 L (3.4-5.0) gm/dl Medications Administered Current Inpatient Medications Acetaminophen (Acetaminophen 325 Mg Tab) 650 mg PO Q4H PRN PRN Reason: Pain or Fever Stop: 11/12/20 21:39 Amlodipine Besylate (Amlodipine Besylate 5 Mg Tab) 10 mg PO QAM [facility] Stop: 11/13/20 08:59 Last Admin: 10/14/20 08:14 Dose: 10 mg Documented by: Atorvastatin Calcium (Atorvastatin 20 Mg Tab) 20 mg PO QAM [facility] Stop: 11/13/20 08:59 Last Admin: 10/14/20 08:13 Dose: 20 mg Documented by: Clonidine HCl (Clonidine Hcl 0.1 Mg Tab) 0.2 mg PO BID [facility] Stop: 11/12/20 21:39 Last Admin: 10/14/20 08:15 Dose: 0.2 mg Documented by: Dextrose (Dextrose 50% 50 Ml Syringe) 25 - 50 ml IV UD PRN; Protocol PRN Reason: Hypoglycemia Protocol Stop: 11/12/20 21:59 Furosemide (Furosemide 20 Mg Tab) 20 mg PO QAM [facility] Stop: 11/13/20 08:59 Last Admin: 10/14/20 08:13 Dose: 20 mg Documented by: Glucagon (Glucagon For Inj 1 Mg Vial) 1 mg IM UD PRN; Protocol PRN Reason: Hypoglycemia Protocol Stop: 11/12/20 21:59 Glucose (Glucose 40% Gel 15 Gm Tube) 15 - 30 gm PO UD PRN; Protocol PRN Reason: Hypoglycemia Protocol Stop: 11/12/20 21:59 Glucose (Glucose 10 Tabs/Tube) 4 - 8 tabs PO UD PRN; Protocol PRN Reason: Hypoglycemia Protocol Stop: 11/12/20 21:59 Hydralazine HCl (Hydralazine Tab 50 Mg Tab) 100 mg PO TID [facility] Stop: 11/12/20 21:39 Last Admin: 10/14/20 08:15 Dose: 100 mg Documented by: Insulin Aspart (Insulin Aspart 100 Units/Ml 3 Ml Pen) 0 units SC ACHS [facility] Stop: 11/12/20 21:39 Last Admin: 10/14/20 12:49 Dose: 2 units Documented by: Isosorbide Dinitrate (Isosorbide Dinitrate 10 Mg Tab) 10 mg PO 0700,1200,1700 [facility] Stop: 11/12/20 21:39 Last Admin: 10/14/20 12:59 Dose: 10 mg Documented by: Miscellaneous (Carbohydrates For Hypoglycemia ) 15 - 30 gm PO UD PRN PRN Reason: Hypoglycemia Treatment Stop: 11/12/20 21:59 Nitroglycerin (Nitroglycerin Sl 0.4 Mg/Tab Tab) 0.4 mg SL UD PRN PRN Reason: Chest Pain Stop: 11/12/20 21:39 Ondansetron HCl (Ondansetron Inj 2 Mg/Ml 2 Ml Vial) 4 mg IV Q6H PRN PRN Reason: Nausea Stop: 11/12/20 21:39 Pantoprazole Sodium (Pantoprazole 40 Mg Tab) 40 mg PO QAM [facility] Stop: 11/14/20 08:59 Potassium Chloride (Potassium Chloride Crtab 20 Meq Tabcr) 20 meq PO QAM [facility] Stop: 11/13/20 08:59 Last Admin: 10/14/20 08:14 Dose: 20 meq Documented by: (1) Hypertension Hypertension type: unspecified Qualified Code(s): I10 - Essential (primary) hypertension
[2020-10-14 17:10] LABS: Hematocrit (blood only) 30.1 % (37-47); Hemoglobin 9.6 g/dL (12.0-16.0)
--- NOTE | 2020-10-14 19:12 | Emergency Department Note ---
History of Present Illness General Chief complaint: GI Bleed Time Seen by Provider: 10/13/20 17:41 Source: patient Mode of arrival: ambulatory Limitations: no limitations History of Present Illness Maximum Pain Intensity: 3 HPI Narrative: This patient is an 89-year-old female who presents emergency department with complaints of GI bleeding. Daughter is concerned because the patient was complaining of abdominal pain initially and then had 2 bloody bowel movements. She is anticoagulated with Eliquis, however the daughter has been giving 5 mg once a day instead of 2.5 mg twice a day. Patient was recently admitted for CHF exacerbation. Over the last several months the patient has developed a baseline tremor and recurrent moaning. There is no report of vomiting and daughter deny abdominal distention. There is no reported trauma. History is limited secondary to the patient's inability to answer questions and cooperate. Home Medications Medication Instructions Recorded Confirmed Type amlodipine 10 mg PO QAM 03/31/19 10/13/20 History atorvastatin 20 mg PO QAM #30 tab 04/12/19 10/13/20 Rx hydralazine 100 mg PO TID #90 tab 04/12/19 10/13/20 Rx pantoprazole 40 mg PO DAILYBB 09/06/20 10/13/20 History sennosides-docusate sodium [Senna 1 tab-cap PO BID 09/06/20 10/13/20 History with Docusate Sodium] Eliquis 2.5 mg PO BID #0 tab 09/09/20 10/13/20 Rx furosemide [Lasix] 20 mg PO QAM 09/26/20 10/13/20 History isosorbide dinitrate 10 mg PO TID 09/26/20 10/13/20 History potassium chloride [Klor-Con M20] 20 meq PO QAM 09/26/20 10/13/20 History clonidine HCl 0.2 mg PO BID #120 tab 10/01/20 10/13/20 Rx Allergies Allergy/AdvReac Type Severity Reaction Status Date / Time Penicillins Allergy Intermediate Rash Verified 10/13/20 18:13 Quinolones Allergy Intermediate Rash Verified 10/13/20 18:13 aspirin AdvReac Mild burning in Verified 10/13/20 18:13 stomach Past Med/Surg History Medical History CHF due to valvular disease Coronary artery disease DM type 2 (diabetes mellitus, type 2) Do not resuscitate status Dyslipidemia Goals of care, counseling/discussion LBBB (left bundle branch block) Mild aortic stenosis Mild mitral stenosis Mitral regurgitation Surgical History H/O repair of left rotator cuff H/O varicose vein stripping History of appendectomy History of hysterectomy Social History Smoking Status: Never smoker Tobacco Type: Cigarettes Hx Alcohol Use: No Hx Substance Use: No Preferred Language: Ukrainian 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 Ability: Effective Academic Services Coordinator Required: No Beliefs That Will Affect Care: None marital status: / Current Living Situation: Family Current Living Situation Comment: lives w/ dtr Other Information That Helps Us Care for You: No Feels Safe at Home: Yes Safety Concerns: Feels Safe At This Time Assistive Devices: Oxygen - Continuous and Special Shoe Review of Systems Unobtainable due to cognitive status Physical Exam Vital Signs: Vital Signs - 24 hr 10/13/20 19:30 10/13/20 20:00 Pulse Rate 53 L 58 L Respiratory Rate 20 22 Blood Pressure 173/55 H 171/77 H Blood Pressure Agueda n 94 108 Pulse Oximetry 99 96 Physical Exam: Vital signs reviewed. General: Well-appearing [], in no significant distress. HEENT: No scleral icterus, PERRLA, neck supple. Atraumatic. Cardiovascular: Regular rate and rhythm, no extra sounds. Pulmonary: Clear to auscultation bilaterally, normal work of breathing. Abdomen: Soft, nontender, nondistended, positive bowel sounds. Musculoskeletal: Atraumatic, no peripheral edema. Rectal: Positive bright red blood, no stool obtained. Positive Hemoccult. Normal rectal exam otherwise. Neurologic: Patient awake alert and oriented x 3, full strength in all 4 extre mities. Cranial nerves 2 through 12 grossly intact. Skin: Warm, dry, no rash Course Administered Medications Acetaminophen (Acetaminophen 325 Mg Tab) 650 mg PO Q4H PRN PRN Reason: Pain or Fever Stop: 11/12/20 21:39 Last Admin: 10/15/20 00:34 Dose: 650 mg Documented by: [id number] Amlodipine Besylate (Amlodipine Besylate 5 Mg Tab) 10 mg PO QAM [facility] Stop: 11/13/20 08:59 Last Admin: 10/16/20 07:41 Dose: 10 mg Documented by: [id number] Admin: 10/15/20 08:14 Dose: 10 mg Documented by: [id number] Admin: 10/14/20 08:14 Dose: 10 mg Documented by: [id number] Apixaban (Apixaban 2.5 Mg Tab) 2.5 mg PO BID [facility] Stop: 11/14/20 20:59 Last Admin: 10/16/20 07:43 Dose: 2.5 mg Documented by: [id number] Admin: 10/15/20 20:30 Dose: 2.5 mg Documented by: [id number] Atorvastatin Calcium ([facility]vastatin 20 Mg Tab) [facility] Stop: 11/13/20 08:59 Last Admin: 10/16/20 07:41 Dose: 20 mg Documented by: [id number] Admin: 10/15/20 08:14 Dose: 20 mg Documented by: [id number] Admin: 10/14/20 08:13 Dose: 20 mg Documented by: [id number] Furosemide (Furosemide 20 Mg Tab) [facility] [place] Stop: 11/13/20 08:59 Last Admin: 10/16/20 07:41 Dose: 20 mg Documented by: [id number] Admin: 10/15/20 08:14 Dose: 20 mg Documented by: [id number] Admin: 10/14/20 08:13 Dose: 20 mg Documented by: [id number] Hydralazine HCl (Hydralazine Tab 50 Mg Tab) 100 mg PO TID [facility] Stop: 11/12/20 21:39 Last Admin: 10/16/20 12:41 Dose: 100 mg Documented by: [id number] Admin: 10/16/20 07:42 Dose: 100 mg Documented by: [id number] Admin: 10/15/20 20:30 Dose: 100 mg Documented by: [id number] Admin: 10/15/20 14:30 Dose: 100 mg Documented by: [id number] Admin: 10/15/20 08:13 Dose: 100 mg Documented by: [id number] Admin: 10/14/20 20:51 Dose: 100 mg Documented by: [id number] Admin: 10/14/20 15:43 Dose: 100 mg Documented by: [id number] Admin: 10/14/20 08:15 Dose: 100 mg Documented by: [id number] Admin: 10/13/20 22:30 Dose: 100 mg Documented by: [id number] Hydralazine HCl (Hydralazine Hcl 20 Mg/Ml Vial) 7.5 mg IV Q6H PRN PRN Reason: Hypertension Stop: 11/14/20 03:10 Last Admin: 10/15/20 03:28 Dose: 7.5 mg Documented by: [id number] Insulin Aspart (Insulin Aspart 100 Units/Ml 3 Ml Pen) 0 units SC ACHS [facility] Stop: 11/12/20 21:39 Last Admin: 10/16/20 12:32 Dose: Not Given Documented by: [id number] Cosigned by: [id number] Admin: 10/16/20 08:33 Dose: Not Given Documented by: [id number] Cosigned by: [id number] Admin: 10/15/20 20:37 Dose: Not Given Documented by: [id number] Cosigned by: [id number] Admin: 10/15/20 17:15 Dose: Not Given Documented by: [id number] Cosigned by: [id number] Admin: 10/15/20 11:36 Dose: Not Given Documented by: [id number] Cosigned by: [id number] Admin: 10/15/20 08:17 Dose: Not Given Documented by: [id number] Cosigned by: [id number] Admin: 10/14/20 21:00 Dose: Not Given Documented by: [id number] Cosigned by: [id number] Admin: 10/14/20 17:59 Dose: 2 units Documented by: [id number] Cosigned by: [id number] Admin: 10/14/20 12:49 Dose: 2 units Documented by: [id number] Cosigned by: [id number] Admin: 10/14/20 08:18 Dose: 1 units Documented by: [id number] Cosigned by: [id number] Admin: 10/13/20 22:39 Dose: Not Given Documented by: [id number] Cosigned by: [id number] Isosorbide Dinitrate (Isosorbide Dinitrate 10 Mg Tab) 10 mg PO 0700,1200,1700 [facility] Stop: 11/12/20 21:39 Last Admin: 10/16/20 12:41 Dose: 10 mg Documented by: [id number] Admin: 10/16/20 07:41 Dose: 10 mg Documented by: [id number] Admin: 10/15/20 17:41 Dose: 10 mg Documented by: [id number] Admin: 10/15/20 12:26 Dose: 10 mg Documented by: [id number] Admin: 10/15/20 08:14 Dose: 10 mg Documented by: [id number] Admin: 10/14/20 17:59 Dose: 10 mg Documented by: [id number] Admin: 10/14/20 12:59 Dose: 10 mg Documented by: [id number] Admin: 10/14/20 08:14 Dose: 10 mg Documented by: [id number] Admin: 10/13/20 22:30 Dose: 10 mg Documented by: [id number] Metronidazole (Metronidazole 500 Mg Tab) 500 mg PO TID [facility]; Protocol Stop: 10/17/20 20:59 Last Admin: 10/16/20 12:41 Dose: 500 mg Documented by: [id number] Admin: 10/16/20 07:42 Dose: 500 mg Documented by: [id number] Admin: 10/15/20 20:30 Dose: 500 mg Documented by: [id number] Pantoprazole Sodium (Pantoprazole 40 Mg Tab) [facility] [place] Stop: 11/14/20 08:59 Last Admin: 10/16/20 07:43 Dose: 40 mg Documented by: [id number] Admin: 10/15/20 08:14 Dose: 40 mg Documented by: [id number] Potassium Chloride (Potassium Chloride Crtab 20 Meq Tabcr) 20 meq PO QAM [facility] Stop: 11/13/20 08:59 Last Admin: 10/16/20 07:41 Dose: 20 meq Documented by: [id number] Admin: 10/15/20 08:14 Dose: 20 meq Documented by: [id number] Admin: 10/14/20 08:14 Dose: 20 meq Documented by: [id number] Discontinued Medications Ciprofloxacin (Ciprofloxacin 500 Mg Tab) 500 mg PO BID [facility] Stop: 10/17/20 20:59 Last Admin: 10/16/20 07:43 Dose: 500 mg Documented by: [id number] Admin: 10/15/20 20:30 Dose: 500 mg Documented by: [id number] Clonidine HCl (Clonidine Hcl 0.1 Mg Tab) 0.2 mg PO BID [facility] Stop: 11/12/20 21:39 Last Admin: 10/16/20 07:42 Dose: 0.2 mg Documented by: [id number] Admin: 10/15/20 20:30 Dose: 0.2 mg Documented by: [id number] Admin: 10/15/20 08:14 Dose: 0.2 mg Documented by: [id number] Admin: 10/14/20 20:51 Dose: 0.2 mg Documented by: [id number] Admin: 10/14/20 08:15 Dose: 0.2 mg Documented by: [id number] Admin: 10/13/20 22:30 Dose: 0.2 mg Documented by: [id number] Acetaminophen (Ofirmev) 1,000 mg in 100 mls @ 400 mls/hr IV NOW STA Stop: 10/13/20 18:08 Last Infusion: 10/13/20 19:08 Dose: 0 mls/hr Documented by: [id number] Admin: 10/13/20 18:26 Dose: 400 mls/hr Documented by: [id number] Sodium Chloride (Nss 1000ml) 1,000 mls @ 80 mls/hr IV .[id number] [facility] Stop: 11/12/20 17:59 Last Infusion: 10/14/20 07:05 Dose: 0 mls/hr Documented by: [id number] Admin: 10/13/20 19:10 Dose: 80 mls/hr Documented by: [id number] Cefoxitin Sodium (Mefoxin) 2,000 mg in 60 mls @ 100 mls/hr IV NOW STA Stop: 10/13/20 18:34 Last Infusion: 10/13/20 19:40 Dose: 0 mls/hr Documented by: [id number] Admin: 10/13/20 18:38 Dose: 100 mls/hr Documented by: [id number] Metronidazole (Flagyl) 500 mg in 100 mls @ 100 mls/hr IV NOW STA Stop: 10/13/20 18:58 Last Infusion: 10/13/20 18:50 Dose: 0 mls/hr Documented by: [id number] Admin: 10/13/20 18:35 Dose: 100 mls/hr Documented by: [id number] Dextrose/Sodium Chloride (D5w And Nss) 1,000 mls @ 50 mls/hr IV .Q20H [facility] Stop: 11/12/20 21:39 Last Infusion: 10/14/20 12:59 Dose: 0 mls/hr Documented by: [id number] Infusion: 10/14/20 09:05 Dose: 0 mls/hr Documented by: [id number] Admin: 10/13/20 22:28 Dose: 50 mls/hr Documented by: [id number] Pantoprazole Sodium 40 mg/ (Dextrose) 100 mls @ 20 mls/hr IV Q5H [facility] Stop: 11/12/20 21:39 Last Admin: 10/14/20 15:34 Dose: Not Given Documented by: [id number] Infusion: 10/14/20 15:34 Dose: 0 mg/hr, 0 mls/hr Documented by: [id number] Infusion: 10/14/20 11:24 Dose: 8 mg/hr, 20 mls/hr Documented by: [id number] Infusion: 10/14/20 09:05 Dose: 0 mg/hr, 0 mls/hr Documented by: [id number] Admin: 10/14/20 08:12 Dose: 8 mg/hr, 20 mls/hr Documented by: [id number] Infusion: 10/14/20 08:12 Dose: 8 mg/hr, 20 mls/hr Documented by: [id number] Admin: 10/14/20 03:30 Dose: 8 mg/hr, 20 mls/hr Documented by: [id number] Infusion: 10/14/20 03:28 Dose: 8 mg/hr, 20 mls/hr Documented by: [id number] Admin: 10/13/20 22:28 Dose: 8 mg/hr, 20 mls/hr Documented by: [id number] Pantoprazole Sodium 80 mg/ (Dextrose) 120 mls @ 400 mls/hr IV NOW ONE Stop: 10/13/20 21:57 Last Infusion: 10/13/20 22:46 Dose: 0 mls/hr Documented by: [id number] Admin: 10/13/20 22:28 Dose: 400 mls/hr Documented by: [id number] Potassium Chloride (K Kentrell / Wtr) 10 meq in 100 mls @ 100 mls/hr IV Q1H [facility] Stop: 10/14/20 10:59 Last Infusion: 10/14/20 12:59 Dose: 0 mls/hr Documented by: [id number] Admin: 10/14/20 11:24 Dose: 100 mls/hr Documented by: [id number] Infusion: 10/14/20 11:24 Dose: 0 mls/hr Documented by: [id number] Infusion: 10/14/20 09:05 Dose: 0 mls/hr Documented by: [id number] Admin: 10/14/20 09:04 Dose: 100 mls/hr Documented by: [id number] Medical Decision Making Differential Diagnosis Diverticulosis, AVM, coagulopathy, colitis, inflammatory bowel disease, malignancy, Pratima-Malave tear, esophagitis, peptic ulcer disease, variceal bleed, gastritis, epistaxis, fissure, hemorrhoids, as well as other pathologies. Medical Records Attestation: I reviewed the patient's medical records. Home Medications Current Medication List: was personally reviewed by me Laboratory Data Attestation: I reviewed the patient's lab results. Result diagrams: 10/16/20 14:13 10/16/20 14:13 Lab Results 10/13/20 10/13/20 10/13/20 Range/Units 17:12 17:12 17:12 WBC 13.93 H (4.8-10.8) K/uL RBC 3.98 L (4.2-5.4) M/uL Hgb 9.6 L (12.0-16.0) g/dL Hct 28.8 L (37-47) % MCV 72.4 L (80-100) fL MCH 24.1 L (25-34) pg MCHC 33.3 (32-36) g/dL RDW Std Deviation 44.2 (36.4-46.3) fL RDW Coeff of Dion 16.7 H (11.5-14.5) % Plt Count 319 (130-400) K/uL MPV 8.6 (7.4-10.4) fL PT 10.9 (9.0-12.0) Seconds INR 1.1 (0.9-1.1) APTT 29.6 (21.0-31.0) Seconds PTT Ratio 1.1 Sodium (136-145) mmol/L Potassium (3.5-5.1) mmol/L Chloride (98-107) mmol/L Carbon Dioxide (21-32) mmol/L Anion Gap (3-11) BUN (7-18) mg/dl Creatinine (0.6-1.2) mg/dl Est Cr Clr Drug Dosing ml/min Est GFR ( Amer) ml/min Est GFR (Non-Af Amer) ml/min BUN/Creatinine Ratio (10-20) Glucose (70-99) mg/dl Calcium (8.5-10.1) mg/dl Total Bilirubin (0.2-1) mg/dl AST (15-37) U/L ALT (12-78) U/L Alkaline Phosphatase (45-117) U/L Total Protein (6.4-8.2) gm/dl Albumin (3.4-5.0) gm/dl Globulin (2.5-4.0) gm/dl Albumin/Globulin Ratio (0.9-2) COVID-19 Eval Order SARS-CoV-2 (PCR) (Negative) Blood Type O Positive Antibody Screen NEGATIVE 10/13/20 10/13/20 10/13/20 Range/Units 17:12 18:02 18:02 WBC (4.8-10.8) K/uL RBC (4.2-5.4) M/uL Hgb (12.0-16.0) g/dL Hct (37-47) % MCV (80-100) fL MCH (25-34) pg MCHC (32-36) g/dL RDW Std Deviation (36.4-46.3) fL RDW Coeff of Dion (11.5-14.5) % Plt Count (130-400) K/uL MPV (7.4-10.4) fL PT (9.0-12.0) Seconds INR (0.9-1.1) APTT (21.0-31.0) Seconds PTT Ratio Sodium 140 (136-145) mmol/L Potassium 3.7 (3.5-5.1) mmol/L Chloride 109 H (98-107) mmol/L Carbon Dioxide 22 (21-32) mmol/L Anion Gap 9.0 (3-11) BUN 29 H (7-18) mg/dl Creatinine 1.39 H (0.6-1.2) mg/dl Est Cr Clr Drug Dosing 25.7 ml/min Est GFR ( Amer) 38.8 ml/min Est GFR (Non-Af Amer) 33.5 ml/min BUN/Creatinine Ratio 20.5 H (10-20) Glucose 146 H (70-99) mg/dl Calcium 7.9 L (8.5-10.1) mg/dl Total Bilirubin 0.3 (0.2-1) mg/dl AST 12 L (15-37) U/L ALT 13 (12-78) U/L Alkaline Phosphatase 128 H (45-117) U/L Total Protein 6.0 L (6.4-8.2) gm/dl Albumin 2.9 L (3.4-5.0) gm/dl Globulin 3.1 (2.5-4.0) gm/dl Albumin/Globulin Ratio 0.9 (0.9-2) COVID-19 Eval Order Covid19 at [facility] SARS-CoV-2 (PCR) NEGATIVE (Negative) Blood Type Antibody Screen Imaging Data Radiologist's Impression: Abdomen/Pelvis CT 10/13/20 17:56 CT SCAN OF THE ABDOMEN AND PELVIS WITHOUT CONTRAST CLINICAL HISTORY: GIB, abd pain COMPARISON STUDY: March 21, 2019 TECHNIQUE: CT scan of the abdomen and pelvis was performed from the lung bases to the proximal femurs. Images are reviewed in the axial, sagittal, and coronal planes. IV contrast was not administered for this examination. A dose lowering technique was utilized adhering to the principles of ALARA. CT DOSE: 701.91 mGy.cm FINDINGS: Lower chest: Moderate right pleural effusion. Patchy airspace opacities at bilateral bases might represent atelectasis or pneumonia. Evaluation is limited due to motion artifact. Severe calcifications of the mitral annulus and calcification of the aortic valve are seen. Liver: The unenhanced liver is normal in size, contour, and attenuation. There is no intrahepatic biliary ductal dilatation. Gallbladder: Gallbladder is possibly fluid-filled. No definite gallstones are seen. Evaluation is significantly limited due to motion artifact and lack of IV contrast. Spleen: Spleen is not enlarged. Previously seen splenic infarct is no longer visualized. Pancreas: Visualized portion of the pancreas shows no evidence of focal lesions on this significantly limited exam. Adrenal glands: Unremarkable. Kidneys: No hydronephrosis or nephrolithiasis. Atrophic left kidney. Bowel: Small to moderate hiatal hernia. No significant dilatation of the bowel loops are seen. No appendix visualized. Evaluation is significantly limited due to lack of contrast and motion artifact. Peritoneum: There is no intraperitoneal free air or abdominal ascites. Vasculature: The abdominal aorta is normal in course and caliber. Severe calcifications of aortic wall are seen. Adenopathy: None. Pelvic viscera: Urinary bladder is fluid-filled. Possible focal thickening of the inferior urinary bladder wall is seen on sagittal reconstruction. Evaluation is limited due to motion artifact. Uterus is not seen, probably surgically absent. Significant motion artifact within pelvic region limits evaluation. Skeletal structures: Multilevel degenerative changes of the spine. No definite aggressive osseous lesions are seen. IMPRESSION: Gallbladder is fluid-filled without intraluminal calculi to suggest cholelithiasis. Limited exam. Further evaluation with gallbladder ultrasound might be considered if clinically indicated. Redemonstration of atrophic left kidney. Questionable focal thickening of inferior urinary bladder wall, could be artifactual due to motion artifact or represent urinary bladder wall lesion. Please correlate above-mentioned findings was prior history. Urinary bladder ultrasound might be considered for further characterization if clinically indicated. Previously seen splenic infarct appear less conspicuous. Atherosclerosis. Moderate right pleural effusion. Hiatal hernia. ACT 112: Negative or not required by law. The above report was generated using voice recognition software. It may contain grammatical, syntax or spelling errors. Electronically signed by: Jihan Hamilton DO 10/13/2020 6:31 PM Gallbladder Ultrasound 10/13/20 19:03 ULTRASOUND RIGHT UPPER QUADRANT ABDOMEN CLINICAL HISTORY: Generalized abdominal pain. COMPARISON STUDY: Abdominal CT dated 10/13/2020 TECHNIQUE: Real-time, grayscale, and color flow sonography of the right upper quadrant of the abdomen was performed. Images are reviewed in the transverse and longitudinal planes. FINDINGS: Liver: The liver is normal in size and echotexture. There is no intrahepatic biliary ductal dilatation. The main portal vein is patent. Gallbladder: There is biliary sludge. No shadowing Gallstones are identified. There is no gallbladder wall thickening or pericholecystic fluid. A sonographic Prado's sign is reportedly absent. The common bile duct measures up to 0.5 cm in diameter. Pancreas: Visualized portions of the pancreatic head and body are normal in appearance. The splenic vein is patent. Right kidney: Survey images of the right kidney demonstrate cortical atrophy. Echotexture is normal. There is no hydronephrosis. Ascites: None. Pleural spaces: There is trace right pleural effusion. IMPRESSION: 1. There is biliary sludge. No shadowing gallstones are identified and there is no sonographic evidence of acute cholecystitis. 2. Trace right pleural effusion. ACT 112: Negative or not required by law. Electronically signed by: Abran Chu M.D. 10/13/2020 8:51 PM Blood Pressure Blood Pressure Findings: Elevated blood pressure Blood Pressure Disposition: further management by hospitalist MDM Narrative This patient was evaluated and appeared to be in no significant distress. IV was obtained and laboratory work was drawn. An order for cardiac monitoring was placed and the patient is noted to be in a sinus rhythm at 77 bpm. Patient's laboratory work reveals a hemoglobin of 9.6 from 10.3. WBC is elevated at 13.9. Patient was given 2 g of IV Mefoxin secondary to the abdominal pain and elevated WBC. Patient does have gross blood on rectal exam. CT scan of the abdomen pelvis was performed and reveals cholelithiasis and a slightly distended gallbladder but no obvious source of bleeding. Ultrasound of the right upper quadrant was ordered in follow-up. Given that the patient is a poor historian, of advanced elderly age and is anticoagulated, she will be admitted by the hospitalist service for further management. Patient's daughter was made aware of the findings and agrees. Impression & Plan GIB (gastrointestinal bleeding), Abdominal pain, Chronic anticoagulation Discharge Plan Visit Data Chief Complaint: GI Bleed ED Provider: Sheela Blackwood Discharge Problem: GIB (gastrointestinal bleeding), Abdominal pain, Chronic anticoagulation Patient Disposition: Admitted As Inpatient Discharge Instructions Interventions: ED Discharge Assessment Last Done: 10/13/20 21:13 Discharge Problem: GIB (gastrointestinal bleeding) Qualifiers: GI bleed type/associated pathology: anorectal hemorrhage Qualified Code(s): K62.5 - Hemorrhage of anus and rectum Abdominal pain Qualifiers: Abdominal location: generalized Qualified Code(s): R10.84 - Generalized abdominal pain
[2020-10-15] MEDS: ACETAMINOPHEN 325 MG TAB PO PRN (00:34)
[2020-10-15] MEDS: hydrALAZINE HCL 20 MG/ML VIAL IV PRN (03:28)
[2020-10-15] MEDS: hydrALAZINE TAB 50 MG TAB PO SCH ×3 (08:13→20:30)
[2020-10-15] MEDS: ATORVASTATIN 20 MG TAB PO SCH (08:14)
[2020-10-15] MEDS: amLODIPine BESYLATE 5 MG TAB PO SCH (08:14)
[2020-10-15] MEDS: ISOSORBIDE DINITRATE 10 MG TAB PO SCH ×3 (08:14→17:41)
[2020-10-15] MEDS: PANTOprazole 40 MG TAB PO SCH (08:14)
[2020-10-15] MEDS: FUROSEMIDE 20 MG TAB PO SCH (08:14)
[2020-10-15] MEDS: cloNIDine HCL 0.1 MG TAB PO SCH ×2 (08:14→20:30)
[2020-10-15] MEDS: POTASSIUM CHLORIDE CRTAB 20 MEQ TABCR PO SCH (08:14)
[2020-10-15] MEDS: INSULIN ASPART 100 UNITS/ML 3 ML PEN SC SCH ×4 (08:17→20:37)
[2020-10-15 14:07] LABS: Basophils # (auto) 0.03 K/uL (0-0.2); Basophils % (auto) 0.4 %; Eosinophils # (auto) 0.17 K/uL (0-0.5); Eosinophils % (auto) 2.2 %; Hematocrit (blood only) 29.8 % (37-47); Hemoglobin 9.7 g/dL (12.0-16.0); Immature Granulocytes # (auto) 0.05 K/uL (0.00-0.02); Immature Granulocytes % (auto) 0.7 %; Lymphocytes # (auto) 0.73 K/uL (1.2-3.4); Lymphocytes % (auto) 9.5 %; Mean Corpuscular Hgb Conc 32.6 g/dL (32-36); Mean Corpuscular Volume 73.8 fL (80-100); Mean Platelet Volume 8.8 fL (7.4-10.4); Monocytes # (auto) 1.12 K/uL (0.11-0.59); Monocytes % (auto) 14.6 %; Neutrophils # (auto) 5.59 K/uL (1.4-6.5); Neutrophils % (auto) 72.6 %; Platelet Count 292 K/uL (130-400); RDW Coefficient of Variation 16.4 % (11.5-14.5); RDW Standard Deviation 44.8 fL (36.4-46.3); Red Blood Count 4.04 M/uL (4.2-5.4); White Blood Count 7.69 K/uL (4.8-10.8)
--- NOTE | 2020-10-15 14:19 | Hospitalist Progress Note ---
Date of Service October 15, 2020 Assessment & Plan (1) Rectal bleeding: Likely secondary to on chronic ischemic colitis No CT evidence of significant bowel wall edema. Patient had gastroenterology input. Patient has been tolerating diet. Hemoglobin remains stable. Started patient on Cipro/Flagyl as per GI recommendations. Resume Eliquis today and assess hemoglobin response tomorrow. (2) CHF due to valvular disease: Has controlled CHF Echo of the heart was done during her recent admission to the hospital We will continue her home medications (3) Hypertension: Blood pressure remains on the upper side of normal Continue with [employer] clonidine, amlodipine, furosemide, hydralazine. (4) DM type 2 (diabetes mellitus, type 2): Has been on sliding scale insulin coverage (5) CKD (chronic kidney disease), stage III: Stable; BMP pending today History of abnormal movements of the limbs Has had evaluation by neurologist during her last admission and apparent imaging studies are unremarkable and the EEG was negative No more episode noted CAD No acute cardiac symptoms We will continue current medications DVT prophylaxis Resume Eliquis. SCDs for now Admission and Anticipated Discharge Date Admission Date: October 13, 2020 Subjective Doing okay this morning. Reports abdominal pain is improved. Have not had any episodes of nausea or vomiting. Denies any chest pain or shortness of breath. Hemodynamically doing okay. Patient is afebrile. WBC is within normal limit. Review of Systems Review of Systems: All systems reviewed & are unremarkable except as noted in HPI & below Physical Exam Physical Exam: General: A&Ox3 HENT: NCAT, MMM, EOMI Eyes: PERRLA Neck: Supple, normal range of motion CVS: normal rate and rhythm Resp: b/l good breath sounds Abdomen: Soft, nondistended and nontender Extremities: No c/c/e Neuro: face symmetric,no focal deficit Skin: warm and dry, no rashes/lesions/errythema MSK: normal ROM, no joint swelling/erythema Results & Data Results & Data ([facility]) Vital Signs (Past 12 Hours) Vital Signs Temp Pulse Pulse Resp BP Pulse Ox 10/15/20 11:41 36.5 C 52 L 20 171/62 H 98 10/15/20 07:44 36.6 C 62 20 215/82 H 98 10/15/20 07:27 65 10/15/20 05:51 158/72 H 10/15/20 03:01 36.5 C 62 18 199/49 H 99 (1) Hypertension Hypertension type: unspecified Qualified Code(s): I10 - Essential (primary) hypertension
[2020-10-15 14:46] LABS: Albumin Level 2.8 gm/dl (3.4-5.0); BUN Creatinine Ratio 14.7 (10-20); Calcium 8.5 mg/dl (8.5-10.1); Est GFR (African American) 37.2 ml/min; Est GFR (Non-African American) 32.1 ml/min; Potassium 3.7 mmol/L (3.5-5.1)
[2020-10-15 14:49] LABS: Albumin Globulin Ratio 0.9 (0.9-2); Bilirubin,Total 0.3 mg/dl (0.2-1); Globulin 3.1 gm/dl (2.5-4.0); Total Protein 5.9 gm/dl (6.4-8.2)
[2020-10-15] MEDS: CIPROFLOXACIN 500 MG TAB PO SCH (20:30)
[2020-10-15] MEDS: APIXABAN 2.5 MG TAB PO SCH (20:30)
[2020-10-15] MEDS: metroNIDAZOLE 500 MG TAB PO SCH (20:30)
[2020-10-16] MEDS: FUROSEMIDE 20 MG TAB PO SCH (07:41)
[2020-10-16] MEDS: ATORVASTATIN 20 MG TAB PO SCH (07:41)
[2020-10-16] MEDS: amLODIPine BESYLATE 5 MG TAB PO SCH (07:41)
[2020-10-16] MEDS: ISOSORBIDE DINITRATE 10 MG TAB PO SCH ×3 (07:41→17:41)
[2020-10-16] MEDS: POTASSIUM CHLORIDE CRTAB 20 MEQ TABCR PO SCH (07:41)
[2020-10-16] MEDS: metroNIDAZOLE 500 MG TAB PO SCH ×3 (07:42→21:01)
[2020-10-16] MEDS: cloNIDine HCL 0.1 MG TAB PO SCH (07:42)
[2020-10-16] MEDS: hydrALAZINE TAB 50 MG TAB PO SCH ×3 (07:42→21:02)
[2020-10-16] MEDS: APIXABAN 2.5 MG TAB PO SCH ×2 (07:43→21:02)
[2020-10-16] MEDS: PANTOprazole 40 MG TAB PO SCH (07:43)
[2020-10-16] MEDS: CIPROFLOXACIN 500 MG TAB PO SCH (07:43)
[2020-10-16] MEDS: INSULIN ASPART 100 UNITS/ML 3 ML PEN SC SCH ×4 (08:33→21:03)
--- NOTE | 2020-10-16 14:02 | Hospitalist Progress Note ---
Date of Service October 16, 2020 Assessment & Plan (1) Rectal bleeding: Likely secondary to on chronic ischemic colitis No CT evidence of significant bowel wall edema. Patient had gastroenterology input. Patient has been tolerating diet. Hemoglobin remains stable. Started patient on Cipro/Flagyl as per GI recommendations. Continue with Eliquis. (2) CHF due to valvular disease: Has controlled CHF Echo of the heart was done during her recent admission to the hospital We will continue her home medications (3) Hypertension: Patient remains in hypertensive urgency. Patient has history of renal artery stent. Most recent Doppler ultrasound on 09/30 without any concerns. 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 Increase dosage of clonidine 0.3 mg twice daily today. (4) DM type 2 (diabetes mellitus, type 2): Has been on sliding scale insulin coverage (5) CKD (chronic kidney disease), stage III: Stable; History of abnormal movements of the limbs Has had evaluation by neurologist during her last admission and apparent imaging studies are unremarkable and the EEG was negative No more episode noted CAD No acute cardiac symptoms We will continue current medications DVT prophylaxis C/W Eliquis. SCDs for now Daughter was at the bedside who was updated. Admission and Anticipated Discharge Date Admission Date: October 13, 2020 Subjective Patient remains hypertensive overnight and this morning patient. Denies any headache or dizziness. She denies any chest pain, shortness of breath or any palpitations. Denies any abdominal pain, diarrhea or dysuria. Review of Systems Review of Systems: All systems reviewed & are unremarkable except as noted in HPI & below Physical Exam Physical Exam: General: A&Ox3 HENT: NCAT, MMM, EOMI Eyes: PERRLA Neck: Supple, normal range of motion CVS: normal rate and rhythm Resp: b/l good breath sounds Abdomen: Soft, nondistended and nontender Extremities: No c/c/e Neuro: face symmetric,no focal deficit Skin: warm and dry, no rashes/lesions/errythema MSK: normal ROM, no joint swelling/erythema Results & Data Results & Data ([facility]) Vital Signs (Past 12 Hours) Vital Signs Temp Pulse Pulse Resp BP Pulse Ox 10/16/20 11:33 37.1 C 58 L 18 164/58 H 94 10/16/20 10:00 64 14 167/82 H 98 10/16/20 07:36 37.3 C 61 19 201/69 H 96 10/16/20 07:00 57 L 10/16/20 03:32 36.8 C 61 20 199/63 H 97 (1) Hypertension Hypertension type: unspecified Qualified Code(s): I10 - Essential (primary) hypertension
[2020-10-16 14:34] LABS: Basophils # (auto) 0.03 K/uL (0-0.2); Basophils % (auto) 0.5 %; Eosinophils # (auto) 0.14 K/uL (0-0.5); Eosinophils % (auto) 2.1 %; Hematocrit (blood only) 30.1 % (37-47); Hemoglobin 9.8 g/dL (12.0-16.0); Immature Granulocytes # (auto) 0.02 K/uL (0.00-0.02); Immature Granulocytes % (auto) 0.3 %; Lymphocytes # (auto) 0.85 K/uL (1.2-3.4); Lymphocytes % (auto) 12.8 %; Mean Corpuscular Hemoglobin 23.7 pg (25-34); Mean Corpuscular Hgb Conc 32.6 g/dL (32-36); Mean Corpuscular Volume 72.9 fL (80-100); Mean Platelet Volume 8.5 fL (7.4-10.4); Monocytes # (auto) 1.06 K/uL (0.11-0.59); Neutrophils # (auto) 4.54 K/uL (1.4-6.5); Neutrophils % (auto) 68.3 %; Platelet Count 295 K/uL (130-400); RDW Coefficient of Variation 16.3 % (11.5-14.5); RDW Standard Deviation 43.1 fL (36.4-46.3); Red Blood Count 4.13 M/uL (4.2-5.4); White Blood Count 6.64 K/uL (4.8-10.8)
[2020-10-16 14:50] LABS: Albumin Level 2.8 gm/dl (3.4-5.0); BUN Creatinine Ratio 12.6 (10-20); Calcium 8.6 mg/dl (8.5-10.1); Creatinine Clr Calc Pharmacy 23.1 ml/min; Est GFR (African American) 38.2 ml/min; Est GFR (Non-African American) 32.9 ml/min; Potassium 3.6 mmol/L (3.5-5.1)
[2020-10-16 14:53] LABS: Bilirubin,Total 0.5 mg/dl (0.2-1); Globulin 2.9 gm/dl (2.5-4.0); Total Protein 5.7 gm/dl (6.4-8.2)
[2020-10-16] MEDS: cloNIDine HCL 0.3 MG TAB PO SCH (21:50)
[2020-10-17] MEDS: hydrALAZINE HCL 20 MG/ML VIAL IV PRN (03:34)
[2020-10-17 06:02] LABS: Basophils # (auto) 0.04 K/uL (0-0.2); Basophils % (auto) 0.6 %; Eosinophils # (auto) 0.12 K/uL (0-0.5); Eosinophils % (auto) 1.7 %; Hemoglobin 10.7 g/dL (12.0-16.0); Immature Granulocytes # (auto) 0.02 K/uL (0.00-0.02); Immature Granulocytes % (auto) 0.3 %; Lymphocytes # (auto) 1.56 K/uL (1.2-3.4); Lymphocytes % (auto) 22.2 %; Mean Corpuscular Hgb Conc 32.4 g/dL (32-36); Mean Corpuscular Volume 74.2 fL (80-100); Mean Platelet Volume 8.4 fL (7.4-10.4); Monocytes % (auto) 5.7 %; Neutrophils % (auto) 69.5 %; Platelet Count 307 K/uL (130-400); RDW Coefficient of Variation 16.3 % (11.5-14.5); RDW Standard Deviation 44.6 fL (36.4-46.3); Red Blood Count 4.45 M/uL (4.2-5.4); White Blood Count 7.04 K/uL (4.8-10.8)
[2020-10-17] MEDS: ISOSORBIDE DINITRATE 10 MG TAB PO SCH ×3 (06:10→17:52)
[2020-10-17 06:26] LABS: BUN Creatinine Ratio 12.1 (10-20); Calcium 8.4 mg/dl (8.5-10.1); Creatinine Clr Calc Pharmacy 24.9 ml/min; Est GFR (African American) 41.4 ml/min; Est GFR (Non-African American) 35.7 ml/min; Potassium 3.1 mmol/L (3.5-5.1)
[2020-10-17] MEDS: POTASSIUM CHLORIDE CRTAB 20 MEQ TABCR PO SCH (08:31)
[2020-10-17] MEDS: hydrALAZINE TAB 50 MG TAB PO SCH ×3 (08:36→20:45)
[2020-10-17] MEDS: ATORVASTATIN 20 MG TAB PO SCH (08:36)
[2020-10-17] MEDS: FUROSEMIDE 20 MG TAB PO SCH (08:37)
[2020-10-17] MEDS: amLODIPine BESYLATE 5 MG TAB PO SCH (08:37)
[2020-10-17] MEDS: PANTOprazole 40 MG TAB PO SCH (08:37)
[2020-10-17] MEDS: cloNIDine HCL 0.3 MG TAB PO SCH ×2 (08:37→20:44)
[2020-10-17] MEDS: APIXABAN 2.5 MG TAB PO SCH ×2 (08:37→20:52)
[2020-10-17] MEDS: metroNIDAZOLE 500 MG TAB PO SCH ×2 (08:38→16:20)
[2020-10-17] MEDS: INSULIN ASPART 100 UNITS/ML 3 ML PEN SC SCH ×4 (08:39→20:45)
[2020-10-17] MEDS ORDERED: CIPROFLOXACIN 500 MG TAB PO SCH (09:00)
--- NOTE | 2020-10-17 13:17 | Hospitalist Progress Note ---
Date of Service October 17, 2020 Assessment & Plan (1) Resistant hypertension: Patient remains in hypertensive urgency. Patient has history of renal artery stent. Most recent Doppler ultrasound on 09/30 without any concerns. Renal function without any concern. Continue with ASSOCIATE DEAN OF STUDENTS mlodipine 10 mg daily, furosemide 80 mg daily, hydralazine 100 mg 3 times daily. Increase dosage of ASSOCI[employer]AN [employer] STUDENTS clonidine ro 0.3 mg twice daily. Did touch base with cardiology. Will order upper extremity duplex and pheochromocytoma work-up. (2) Rectal bleeding: Likely secondary to on chronic ischemic colitis. No CT evidence of significant bowel wall edema. Patient had gastroenterology input. Patient has been tolerating diet. Hemoglobin remains stable. Started patient on Cipro/Flagyl as per GI recommendations. Continue with Eliquis. (3) CHF due to valvular disease: Has controlled CHF Echo of the heart was done during her recent admission to the hospital (4) Hypertension: (5) DM type 2 (diabetes mellitus, type 2): Has been on sliding scale insulin coverage (6) CKD (chronic kidney disease), stage III: Stable; History of abnormal movements of the limbs Has had evaluation by neurologist during her last admission and apparent imaging studies are unremarkable and the EEG was negative No more episode noted CAD No acute cardiac symptoms We will continue current medications DVT prophylaxis C/W Eliquis. SCDs for now. Admission and Anticipated Discharge Date Admission Date: October 13, 2020 Subjective Patient denies any headache, nausea, vomiting, neck pain, chest pain, shortness of breath or any palpitations. Does report some occasional dizziness when she is out of bed. Review of Systems Review of Systems: All systems reviewed & are unremarkable except as noted in HPI & below Physical Exam Physical Exam: General: A&Ox3 HENT: NCAT, MMM, EOMI Eyes: PERRLA Neck: Supple, normal range of motion CVS: normal rate and rhythm Resp: b/l good breath sounds Abdomen: Soft, nondistended and nontender Extremities: No c/c/e Neuro: face symmetric,no focal deficit Skin: warm and dry, no rashes/lesions/errythema MSK: normal ROM, no joint swelling/erythema Results & Data Results & Data ([facility]) Vital Signs (Past 12 Hours) Vital Signs Temp Pulse Pulse Resp BP Pulse Ox 10/17/20 12:37 37.0 C 63 20 176/64 H 95 10/17/20 08:00 70 10/17/20 07:17 36.4 C L 69 20 188/55 H 91 10/17/20 04:08 163/69 H 10/17/20 03:22 36.9 C 69 17 203/68 H 93 10/17/20 01:37 68 (1) Hypertension Hypertension type: unspecified Qualified Code(s): I10 - Essential (primary) hypertension
[2020-10-17] MEDS ORDERED: POTASSIUM CHLORIDE CRTAB 20 MEQ TABCR PO SCH (13:30)
--- NOTE | 2020-10-17 16:02 | Ultrasound Report ---
US arterial duplex bilateral upper extremity CLINICAL HISTORY: Extremity stenosis with pain. COMPARISON STUDY: None. FINDINGS: Real-time sonographic imaging of the bilateral upper extremity arterial systems was perform ed with dental detail representative images submitted. Elevated peak systolic velocities within the proximal left s ubclavian artery measuring 328 cm/s and borderline elevated peak systolic velocities within the mid r ight subclavian artery of 172 cm/s. The remaining bilateral upper extremity arterial systems demonstr ate normal velocities. No evidence for arterial occlusion. IMPRESSION: 1. 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 2. Borderline stenosis within the mid right subclavian artery. 3. No evidence for upper extremity arterial occlusion. ACT 112: Negative or not required by law. Electronically signed by: Wing Lopez M.D. 10/17/2020 4:00 PM
[2020-10-17] MEDS: ACETAMINOPHEN 325 MG TAB PO PRN (18:09)
[2020-10-17] MEDS: MELATONIN 3 MG TAB PO PRN (20:44)
[2020-10-18] MEDS: ACETAMINOPHEN 325 MG TAB PO PRN (00:45)
[2020-10-18] MEDS: ISOSORBIDE DINITRATE 10 MG TAB PO SCH ×3 (06:01→16:36)
[2020-10-18 06:36] LABS: Creatinine Clr Calc Pharmacy 21.9 ml/min; Est GFR (African American) 39.2 ml/min; Est GFR (Non-African American) 33.8 ml/min
[2020-10-18] MEDS: amLODIPine BESYLATE 5 MG TAB PO SCH (08:31)
[2020-10-18] MEDS: PANTOprazole 40 MG TAB PO SCH (08:31)
[2020-10-18] MEDS: ATORVASTATIN 20 MG TAB PO SCH (08:31)
[2020-10-18] MEDS: FUROSEMIDE 20 MG TAB PO SCH (08:31)
[2020-10-18] MEDS: cloNIDine HCL 0.3 MG TAB PO SCH ×2 (08:31→20:53)
[2020-10-18] MEDS: hydrALAZINE TAB 50 MG TAB PO SCH ×3 (08:31→20:53)
[2020-10-18] MEDS: APIXABAN 2.5 MG TAB PO SCH ×2 (08:32→20:52)
[2020-10-18] MEDS: INSULIN ASPART 100 UNITS/ML 3 ML PEN SC SCH ×4 (08:32→20:53)
[2020-10-18] MEDS: POTASSIUM CHLORIDE CRTAB 20 MEQ TABCR PO SCH ×2 (10:43→12:25)
--- NOTE | 2020-10-18 12:14 | Hospitalist Progress Note ---
Date of Service October 18, 2020 Assessment & Plan (1) Resistant hypertension: Her systolic blood pressure is improved. Patient has history of renal artery stent. Most recent Doppler ultrasound on 09/30 without any concerns. Renal function without any concern. Upper extremity duplex with significant left subclavian stenosis. We will touch base with vascular surgery for further recommendation. Continue with FACING CUTTING MACHINE OPERATOR amlodipine 10 mg daily, furosemide 20 mg daily, hydralazine 100 mg 3 times daily. Increase dosage of FACING CUTTING MACHINE OPERATOR clonidine ro 0.3 mg twice daily. Rule out pheochromocytoma: Catecholamines & metanephrines are ordered; being collected. (2) Rectal bleeding: Likely secondary to on chronic ischemic colitis. No CT evidence of significant bowel wall edema. Patient had gastroenterology input. Patient has been tolerating diet. Hemoglobin remains stable. Continue with Eliquis. (3) CHF due to valvular disease: Has controlled CHF Echo of the heart was done during her recent admission to the hospital (4) DM type 2 (diabetes mellitus, type 2): Has been on sliding scale insulin coverage (5) CKD (chronic kidney disease), stage III: Stable; History of abnormal movements of the limbs Has had evaluation by neurologist during her last admission and apparent imaging studies are unremarkable and the EEG was negative No more episode noted CAD No acute cardiac symptoms We will continue current medications DVT prophylaxis C/W Eliquis. SCDs Admission and Anticipated Discharge Date Admission Date: October 13, 2020 Subjective Patient is overall doing okay today. Systolic blood pressure is improved. Denies any chest pain, headache, dizziness, shortness of breath or any palpitations. Review of Systems Review of Systems: All systems reviewed & are unremarkable except as noted in HPI & below Physical Exam Physical Exam: General: A&Ox3 HENT: NCAT, MMM, EOMI Eyes: PERRLA Neck: Supple, normal range of motion CVS: normal rate and rhythm Resp: b/l good breath sounds Abdomen: Soft, nondistended and nontender Extremities: No c/c/e Neuro: face symmetric,no focal deficit Skin: warm and dry, no rashes/lesions/errythema MSK: normal ROM, no joint swelling/erythema Results & Data Results & Data ([facility]) Vital Signs (Past 12 Hours) Vital Signs Temp Pulse Pulse Resp BP BP Pulse Ox 10/18/20 11:52 37.0 C 58 L 19 160/60 H 96 10/18/20 09:20 58 L 10/18/20 07:42 36.5 C 58 L 18 180/69 H 93 10/18/20 03:47 36.5 C 62 18 153/60 H 92 10/18/20 02:37 57 L
[2020-10-18] MEDS: MELATONIN 3 MG TAB PO PRN (20:52)
[2020-10-19] MEDS: hydrALAZINE HCL 20 MG/ML VIAL IV PRN (04:23)
[2020-10-19] MEDS: ISOSORBIDE DINITRATE 10 MG TAB PO SCH ×3 (06:04→17:05)
[2020-10-19] MEDS: ACETAMINOPHEN 325 MG TAB PO PRN (06:04)
[2020-10-19 07:32] LABS: Creatinine Clr Calc Pharmacy 21.2 ml/min; Est GFR (African American) 37.9 ml/min; Est GFR (Non-African American) 32.7 ml/min
[2020-10-19] MEDS: APIXABAN 2.5 MG TAB PO SCH ×2 (07:52→20:27)
[2020-10-19] MEDS: FUROSEMIDE 20 MG TAB PO SCH (07:52)
[2020-10-19] MEDS: hydrALAZINE TAB 50 MG TAB PO SCH ×3 (07:52→20:28)
[2020-10-19] MEDS: ATORVASTATIN 20 MG TAB PO SCH (07:52)
[2020-10-19] MEDS: cloNIDine HCL 0.3 MG TAB PO SCH ×2 (07:53→20:27)
[2020-10-19] MEDS: POTASSIUM CHLORIDE CRTAB 20 MEQ TABCR PO SCH (07:53)
[2020-10-19] MEDS: amLODIPine BESYLATE 5 MG TAB PO SCH (07:54)
[2020-10-19] MEDS: PANTOprazole 40 MG TAB PO SCH (07:54)
[2020-10-19] MEDS: INSULIN ASPART 100 UNITS/ML 3 ML PEN SC SCH ×4 (07:54→22:04)
--- NOTE | 2020-10-19 11:53 | Nephrology Consultation ---
Date of Consultation October 19, 2020 Assessment & Plan (1) Resistant hypertension: Her blood pressures this admission have ranged from 160s to 190s and have generally been in the 160s and 170s systolic. she is on hardly any diuretic > reluctant to call her resistant HTN w/o being on a stronger/larger diuretic dose; this can however affect her valvular heart failure status and he suffers from incontinence so she I am sure would not choose this higher diuretic dosing. do note also that nitrates and hydralazine can both cause fluid retention. secondary work up to date> renal duplex (poor study); 24 hr urine for catecholamines, serum catecholamines. hx of renal artery stenting. suspicion for nephrotic syndrome given her dipsticks above -low sodium / heart healthy diet ordered -spot prot/creat and repeat UA -low threshold for ARB trial and more diuretic; low threshold to add MC ant agonist -- will be difficult to screen for aldosteronism in this pt and inclined just to start it depending on labs/clinical status >> for the moment though, no medication changes pending labs -need to get outside records [facility] for clinic (2) Pleural effusion: Moderate right pleural effusion noted on admission imaging and increased compared to imaging from prior admissions at least per report Recheck chest x-ray > may need more diuretics Present on Admission?: Yes (3) Hypokalemia: To basic metabolic panel to her labs from today; has been an issue intermittently during admission. bmp should be obtained daily. Not on standing potassium supplements currently. not on K supplement and with no K issues prior to admission as OP > ? 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 -will need OP f/u in CKD clinic w/ our group -will need to get records of hospitalizations [facility] for 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 system -daily bmp Present on Admission?: Yes (5) Atrophy of left kidney: in theory can cause renovascular HTN; s/p stent; needs renal f/u at d/c Present on Admission?: Yes History of Present Illness Reason for Consultation: resistant HTN Requesting Physician: Dr Hernandez Attending Physician: Kaila Hood, DO History of Present Illness 89-year-old female whom I am asked to evaluate for resistant hypertension was admitted here October 14 with rectal bleeding attributed to mild acute on chronic ischemic colitis. Other medical history includes chronic valvular diastolic heart failure, coronary artery disease hypertension with history of hypertensive urgency and admission for same September 26 to October 01, 2020 here and one earlier in August as well, history of renal artery stenosis status post right stent and with atrophied left kidney, CKD 3/4 outpatient baseline creatinine 1.5-1.6, chronic mild ischemic colitis, chronic insomnia; controlled diabetes, splenic infarct, hyperlip idemia, abnormal extremity movements present for greater than 6 months and evaluated by neurology with to date negative work-up. Cardiology and neurology both followed her during her recent admission; neither consulted for this admission. The right renal stent was placed just prior to the outbreak of Covid [facility]. Outpatient follow-up with nephrology was set up after that admission but derailed by the pandemic. Her blood pressure had been per her report 2 60-2 80 systolic prior to the stent; she also endorses frequent UTIs which were cleared by the stent. The patient lived until recently in [place] and moved here early August to be w/ her daughter; just prior to moving here, she was in hospital [facility] x 2 admissions both with what sounds like volume overload/hypertensive urgency. She tells me she has had HTN since age 16. 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 No FH of CKD/ESRD; no personal or FH of stones. Her daughter is at bedside; she can have home bp checks on upper arm cuff > sbp usually 160s at home; when it's lower she feels poorly. Per her daughter she went from a pre-Covid weight of 185 pounds to a weight of 100 pounds within 6 months but has since gained some weight back. During that time she had minimal appetite. Earlier in the admission she had significant edema and has ongoing shortness of breath with exertion. She is getting up to the bathroom by herself but does feel lightheaded at times doing so. Edema is markedly improved on very low-dose Lasix: 20 mg daily, which incidentally is her outpatient dose. She was admitted on amlodipine 10 mg daily, clonidine 0.2 mg twice daily, Lasix 20 mg daily, hydralazine 100 mg 3 times a day, Imdur 10 mg 3 times a day, Protonix 20 mEq every morning. These outpatient medications were continued on presentation. Eventually her clonidine was increased to 0.3 mg twice daily on October 16. After touching base with cardiology, upper extremity duplex came back with results below. Blood and urine testing for pheochromocytoma were ordered and are pending. Allergies Allergy/AdvReac Type Severity Reaction Status Date / Time Penicillins Allergy Intermediate Rash Verified 10/13/20 18:13 Quinolones Allergy Intermediate Rash Verified 10/13/20 18:13 aspirin AdvReac Mild burning in Verified 10/13/20 18:13 stomach Home Medications Medication Instructions Recorded Confirmed Type amlodipine 10 mg PO QAM 03/31/19 10/13/20 History atorvastatin 20 mg PO QAM #30 tab 04/12/19 10/13/20 Rx hydralazine 100 mg PO TID #90 tab 04/12/19 10/13/20 Rx pantoprazole 40 mg PO DAILYBB 09/06/20 10/13/20 History sennosides-docusate sodium [Senna 1 tab-cap PO BID 09/06/20 10/13/20 History with Docusate Sodium] Eliquis 2.5 mg PO BID #0 tab 09/09/20 10/13/20 Rx furosemide [Lasix] 20 mg PO QAM 09/26/20 10/13/20 History isosorbide dinitrate 10 mg PO TID 09/26/20 10/13/20 History potassium chloride [Klor-Con M20] 20 meq PO QAM 09/26/20 10/13/20 History clonidine HCl 0.2 mg PO BID #120 tab 10/01/20 10/13/20 Rx Patient History Medical History (Updated 10/19/20 @ 15:38 by Dayami Bee MD, PhD) 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 Coronary artery disease DM type 2 (diabetes mellitus, type 2) Do not resuscitate status Dyslipidemia Goals of care, counseling/discussion LBBB (left bundle branch block) Mild aortic stenosis Mild mitral stenosis Mitral regurgitation Surgical History (Updated 10/19/20 @ 16:48 by Dayami Bee MD, PhD) H/O repair of left rotator cuff H/O varicose vein stripping History of appendectomy History of hysterectomy History of stent insertion of renal artery R renal artery; [facility] Social History Smoking Status: Never smoker Tobacco Type: Cigarettes Hx Alcohol Use: No Hx Substance Use: No Preferred Language: Pakistani 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 Ability: Effective Thermograph 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: No Beliefs That Will Affect Care: None marital status: / Current Living Situation: Family Current Living Situation Comment: lives w/ dtr Other Information That Helps Us Care for You: No Feels Safe at Home: Yes Safety Concerns: Feels Safe At This Time Assistive Devices: None Review of Systems Review of Systems: All systems reviewed & are unremarkable except as noted in Subjective Cardiovascular: + edema (improved LE edema) Genitourinary: no dysuria and no difficulty urinating Physical Exam Constitutional: well developed, well nourished, + frail appearing and cooperative; no acute distress Eyes: EOM intact bilaterally ENMT: Ears: no external ear abnormality Nose: no external nose abnormality Mouth: + dry oral mucous membranes Neck: no nuchal rigidity Respiratory: normal respiratory effort Auscultation: + diminished lung sounds and + crackles (bibasilar) Cardiovascular: Rate/Rhythm: regular rate and regular rhythm Heart Sounds: + murmur Extremities: no edema Gastrointestinal (Abdomen): Inspection/Auscultation: normal bowel sounds Percussion/Palpation: abdomen soft; abdomen nontender Musculoskeletal: Extremities: strength 5/5 throughout Skin: no rashes, warm and dry Neurologic: carrington, fluent speech, no tremor Psychiatric: A+Ox3, euthymic affect Speech: normal rate/rhythm/volume of speech Genitourinary: no burrell Results & Data ([facility]) Vital Signs (Past 12 Hours) Vital Signs Temp Pulse Pulse Resp BP BP Pulse Ox 10/19/20 11:04 36.6 C 51 L 20 166/50 H 96 10/19/20 08:24 36.4 C L 62 20 187/67 H 95 10/19/20 08:00 64 10/19/20 05:15 185/70 H 10/19/20 04:00 36.7 C 57 L 18 191/69 H 93 10/19/20 00:51 36.6 C 62 18 189/52 H 93 Laboratory Results 10/17/20 05:35 10/19/20 06:43 Spot random urine September 26 clear yellow urine 5.5 pH 1017 with 4+ protein trace glucose greater than 30 epithelial cells 5-10 hyaline casts and otherwise negative indices She has other random urines from August and April 2019 and each has at least 2+ dipstick proteinuria as well as glucosuria Diagnostic Findings CT abd/pelvis admission no con Lower chest: Moderate right pleural effusion. Patchy airspace opacities at bilateral bases might represent atelectasis or pneumonia. Evaluation is limited due to motion artifact. Severe calcifications of the mitral annulus and calcification of the aortic valve are seen. Liver: The unenhanced liver is normal in size, contour, and attenuation. There is no intrahepatic biliary ductal dilatation. Gallbladder: Gallbladder is possibly fluid-filled. No definite gallstones are seen. Evaluation is significantly limited due to motion artifact and lack of IV contrast. Spleen: Spleen is not enlarged. Previously seen splenic infarct is no longer visualized. Pancreas: Visualized portion of the pancreas shows no evidence of focal lesions on this significantly limited exam. Adrenal glands: Unremarkable. Kidneys: No hydronephrosis or nephrolithiasis. Atrophic left kidney. Bowel: Small to moderate hiatal hernia. No significant dilatation of the bowel loops are seen. No appendix visualized. Evaluation is significantly limited due to lack of contrast and motion artifact. Peritoneum: There is no intraperitoneal free air or abdominal ascites. Vasculature: The abdominal aorta is normal in course and caliber. Severe calcifications of aortic wall are seen. Adenopathy: None. Pelvic viscera: Urinary bladder is fluid-filled. Possible focal thickening of the inferior urinary bladder wall is seen on sagittal reconstruction. Evaluation is limited due to motion artifact. Uterus is not seen, probably surgically absent. Significant motion artifact within pelvic region limits evaluation. Skeletal structures: Multilevel degenerative changes of the spine. No definite aggressive osseous lesions are seen. IMPRESSION: Gallbladder is fluid-filled without intraluminal calculi to suggest cholelithiasis. Limited exam. Further evaluation with gallbladder ultrasound might be considered if clinically indicated. Redemonstration of atrophic left kidney. Questionable focal thickening of inferior urinary bladder wall, could be artifactual due to motion artifact or represent urinary bladder wall lesion. Please correlate above-mentioned findings was prior history. Urinary bladder ultrasound might be considered for further characterization if clinically indicated. Previously seen splenic infarct appear less conspicuous. Atherosclerosis. Moderate right pleural effusion. Hiatal hernia. Renal artery duplex September 30, 2020 FINDINGS: This exam is compromised by suboptimal penetration. The right kidney measures 10.2 cm in maximal dimension and the left measures 8.5 cm. There is marked left renal atrophy. There is no hydronephrosis. Peak systolic velocity within the abdominal aorta was 140 cm/s. Peak systolic velocity within the right renal artery was 69 cm/s. Bilateral renal arteries and veins were patent. The left renal artery is not well visualized on this examination. No elevated velocities were identified within visualized portions of the left renal artery however this study is nondiagnostic for evaluation of renal artery stenosis. IMPRESSION: 1. Exam compromised by suboptimal penetration with incomplete visualization of the left renal artery. Therefore, this study is nondiagnostic for evaluation for renal artery stenosis. 2. Marked left renal atrophy. 3. No hydronephrosis. Arterial bilateral upper extremity duplex October 17 1. 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 2. Borderline stenosis within the mid right subclavian artery. 3. No evidence for upper extremity arterial occlusion. TTE September 08, 2020 Mild concentric LVH Thickened basal septum with angulation consistent with sigmoid septum and septal motion consistent with conduction abnormality. Ejection fraction 55 to 60%. Gr ojrdy 1 diastolic dysfunction. Moderate mitral regurgitation. Mild to moderate mitral stenosis. (1) CKD (chronic kidney disease), stage III Chronic kidney disease stage 3 subtype: stage 3b (GFR 30-44) Qualified Code(s): N18.32 - Chronic kidney disease, stage 3b
--- NOTE | 2020-10-19 15:22 | Hospitalist Progress Note ---
Date of Service October 19, 2020 Assessment & Plan (1) Resistant hypertension: BP somewhat improved but not close enough to goal at this time on increased clonidine 0.3mg BID. Appreciate Nephro recs. (2) Rectal bleeding: Likely secondary to on chronic ischemic colitis. No CT evidence of significant bowel wall edema. Patient had gastroenterology input and endoscopy was deferred given lack of ongoing bleeding. Patient has been tolerating diet. Hemoglobin remains stable. Continue with Eliquis. (3) Subclavian arterial stenosis: Asymptomatic, equal pulses bilaterally on exam. No syncope, lightheadedness, etc. Consult vascular surgery. (4) CHF due to valvular disease: "Chronic CHF" with multiple hospitalizations this year. [facility] Echo of the heart was done during her recent admission to the hospital. Cont current diuretic therapy, ,daily weights, strict I/Os and a low salt diet. (5) DM type 2 (diabetes mellitus, type 2): at goal, covered with carb coverage and correction factor. (6) CKD (chronic kidney disease), stage III: proteinuria present, plan per nephro. (7) Proteinuria: per Nephro (8) Pleural effusion: cont daily diuretics. (9) Chronic anticoagulation: Cont Eliquis (10) DVT prophylaxis: Admission and Anticipated Discharge Date Admission Date: October 13, 2020 Subjective 89 yo F admitted for GI bleeding This has resolved and she has been placed back on Eliquis She has significant BP issues and is being worked up for secondary HTN She has a hemodynamically significant stenosis of the L subclavian artery, however, denies any symptoms of subclavian steal and no symptoms of coolness to left arm, numbness, etc. She is requesting to go home as soon as able Daughter cares for her at home. Review of Systems Review of Systems: All systems reviewed & are unremarkable except as noted in Subjective Physical Exam Physical Exam: CONSTITUTIONAL: WNWD, vitals as above, generally well- appearing EYES: normal conjunctivae, no scleral icterus ENT: external ear and nose normal, MMM RESPIRATORY: clear to auscultation bilaterally, no crackles, rales or wheezes, normal respiratory effort CARDIOVASCULAR: regular rate and rhythm, S1 and 2 heard without murmurs, gallops or rubs, no JVD, no peripheral edema, extremities are wwp, radial pulses are 2+ and equal bilaterally GASTROINTESTINAL: soft, nontender, nondistended MUSCULOSKELETAL: strength 5/5 throughout, head is normocephalic and atraumatic SKIN: warm and dry NEUROLOGIC: CN 2-12 grossly intact, no sensory deficit, normal cognition, normal speech, no tremor PSYCHIATRIC: alert cooperative and oriented to person, place and time. Results & Data Results & Data ([facility]) Vital Signs (Past 12 Hours) Vital Signs Temp Pulse Pulse Resp BP BP Pulse Ox 10/19/20 11:04 36.6 C 51 L 20 166/50 H 96 10/19/20 08:24 36.4 C L 62 20 187/67 H 95 10/19/20 08:00 64 10/19/20 05:15 185/70 H 10/19/20 04:00 36.7 C 57 L 18 191/69 H 93 Laboratory Results BMP 10/19/20 06:43 Creatinine 1.42 H Medications Administered Current Inpatient Medications Acetaminophen (Acetaminophen 325 Mg Tab) 650 mg PO Q4H PRN PRN Reason: Pain or Fever Stop: 11/12/20 21:39 Last Admin: 10/19/20 06:04 Dose: 650 mg Documented by: Amlodipine Besylate (Amlodipine Besylate 5 Mg Tab) 10 mg PO QAM [facility] Stop: 11/13/20 08:59 Last Admin: 10/19/20 07:54 Dose: 10 mg Documented by: Apixaban (Apixaban 2.5 Mg Tab) 2.5 mg PO BID [facility] Stop: 11/14/20 20:59 Last Admin: 10/19/20 07:52 Dose: 2.5 mg Documented by: Atorvastatin Calcium (Atorvastatin 20 Mg Tab) 20 mg PO QAM [facility] Stop: 11/13/20 08:59 Last Admin: 10/19/20 07:52 Dose: 20 mg Documented by: Clonidine HCl (Clonidine Hcl 0.3 Mg Tab) 0.3 mg PO BID [facility] Stop: 11/15/20 20:59 Last Admin: 10/19/20 07:53 Dose: 0.3 mg Documented by: Dextrose (Dextrose 50% 50 Ml Syringe) 25 - 50 ml IV UD PRN; Protocol PRN Reason: Hypoglycemia Protocol Stop: 11/12/20 21:59 Furosemide (Furosemide 20 Mg Tab) 20 mg PO QAM [facility] Stop: 11/13/20 08:59 Last Admin: 10/19/20 07:52 Dose: 20 mg Documented by: Glucagon (Glucagon For Inj 1 Mg Vial) 1 mg IM UD PRN; Protocol PRN Reason: Hypoglycemia Protocol Stop: 11/12/20 21:59 Glucose (Glucose 40% Gel 15 Gm Tube) 15 - 30 gm PO UD PRN; Protocol PRN Reason: Hypoglycemia Protocol Stop: 11/12/20 21:59 Glucose (Glucose 10 Tabs/Tube) 4 - 8 tabs PO UD PRN; Protocol PRN Reason: Hypoglycemia Protocol Stop: 11/12/20 21:59 Hydralazine HCl (Hydralazine Tab 50 Mg Tab) 100 mg PO TID [facility] Stop: 11/12/20 21:39 Last Admin: 10/19/20 13:44 Dose: 100 mg Documented by: Hydralazine HCl (Hydralazine Hcl 20 Mg/Ml Vial) 7.5 mg IV Q6H PRN PRN Reason: Hypertension Stop: 11/14/20 03:10 Last Admin: 10/19/20 04:23 Dose: 7.5 mg Documented by: Insulin Aspart (Insulin Aspart 100 Units/Ml 3 Ml Pen) 0 units SC ACHS [facility] Stop: 11/12/20 21:39 Last Admin: 10/19/20 12:10 Dose: 6 units Documented by: Isosorbide Dinitrate (Isosorbide Dinitrate 10 Mg Tab) 10 mg PO 0700,1200,1700 [facility] Stop: 11/12/20 21:39 Last Admin: 10/19/20 12:59 Dose: 10 mg Documented by: Melatonin (Melatonin 3 Mg Tab) 3 mg PO HS PRN PRN Reason: Sleep Stop: 11/16/20 19:12 Last Admin: 10/18/20 20:52 Dose: 3 mg Documented by: Miscellaneous (Carbohydrates For Hypoglycemia ) 15 - 30 gm PO UD PRN PRN Reason: Hypoglycemia Treatment Stop: 11/12/20 21:59 Nitroglycerin (Nitroglycerin Sl 0.4 Mg/Tab Tab) 0.4 mg SL UD PRN PRN Reason: Chest Pain Stop: 11/12/20 21:39 Ondansetron HCl (Ondansetron Inj 2 Mg/Ml 2 Ml Vial) 4 mg IV Q6H PRN PRN Reason: Nausea Stop: 11/12/20 21:39 Pantoprazole Sodium (Pantoprazole 40 Mg Tab) 40 mg PO QAM [facility] Stop: 11/14/20 08:59 Last Admin: 10/19/20 07:54 Dose: 40 mg Documented by: Potassium Chloride (Potassium Chloride Crtab 20 Meq Tabcr) 20 meq PO QAM [facility] Stop: 11/13/20 08:59 Last Admin: 10/19/20 07:53 Dose: 20 meq Documented by:
[2020-10-19 18:23] LABS: BUN Creatinine Ratio 10.7 (10-20); Creatinine Clr Calc Pharmacy 20.9 ml/min; Est GFR (African American) 37.2 ml/min; Est GFR (Non-African American) 32.1 ml/min; Potassium 3.5 mmol/L (3.5-5.1)
--- NOTE | 2020-10-19 18:59 | XRay Report ---
XR chest 2V PA/lateral HISTORY: f/u pleural effusion COMPARISON: Chest 09/26/2020. FINDINGS: Fall bilateral pleural effusions, right greater than the left. These have slightly improved . Chronic interstitial thickening persists. No evidence for pulmonary edema. The heart remains mildly enlarged. Bibasilar densities persist and favor atelectasis. A pneumonia could also have a similar a ppearance. No pneumothorax. IMPRESSION: 1. Slight improvement in the small bilateral pleural effusions. 2. Stable cardiomegaly. 3. Bibasilar densities persist and favor atelectasis. A pneumonia could also have a similar appearanc e. ACT 112: Negative or not required by law. Electronically signed by: Wing Lopez M.D. 10/19/2020 6:58 PM
[2020-10-19] MEDS ORDERED: POTASSIUM CHLORIDE CRTAB 20 MEQ TABCR PO ONE (21:02)
[2020-10-19 21:14] LABS: Appearance Urine Clear (Clear); Bacteria Urine Automated Negative (Negative); Bilirubin Urine Negative (Negative); Blood Urine Negative (Negative); Color Urine Yellow; Epithelial Cell Urine Auto >30 /lpf (0-5); Glucose Urine UA Negative (Negative); Ketones Urine Negative (Negative); Leukocyte Esterase Urine Negative (Negative); Nitrite Urine Negative (Negative); Protein Urine 3+ (Negative); RBC Urine Automated 0-4 /hpf (0-4); Specific Gravity Urine 1.018 (1.000-1.030); Urobilinogen Urine Negative (Negative); pH Urine 6.5 (4.5-7.5)
[2020-10-19 21:30] LABS: Protein Creatinine Ratio Urine 3.5 (0-0.2); Total Protein Urine Random 362.6 mg/dl (0-11.9)
[2020-10-20] MEDS: ISOSORBIDE DINITRATE 10 MG TAB PO SCH ×3 (06:38→17:41)
[2020-10-20 07:37] LABS: BUN Creatinine Ratio 12.9 (10-20); Calcium 8.4 mg/dl (8.5-10.1); Est GFR (African American) 39.9 ml/min; Est GFR (Non-African American) 34.4 ml/min; Potassium 3.3 mmol/L (3.5-5.1)
[2020-10-20] MEDS: INSULIN ASPART 100 UNITS/ML 3 ML PEN SC SCH ×4 (07:52→20:57)
[2020-10-20] MEDS: cloNIDine HCL 0.3 MG TAB PO SCH (07:53)
[2020-10-20] MEDS: hydrALAZINE TAB 50 MG TAB PO SCH ×3 (07:54→20:56)
[2020-10-20] MEDS: POTASSIUM CHLORIDE CRTAB 20 MEQ TABCR PO SCH (07:54)
[2020-10-20] MEDS: APIXABAN 2.5 MG TAB PO SCH ×2 (07:54→20:56)
[2020-10-20] MEDS: ATORVASTATIN 20 MG TAB PO SCH (07:54)
[2020-10-20] MEDS: amLODIPine BESYLATE 5 MG TAB PO SCH (07:55)
[2020-10-20] MEDS: PANTOprazole 40 MG TAB PO SCH (07:55)
[2020-10-20] MEDS: FUROSEMIDE 20 MG TAB PO SCH (07:55)
--- NOTE | 2020-10-20 09:53 | Consultation ---
Date of Consultation October 20, 2020 Assessment & Plan (1) Subclavian arterial stenosis: L subclavian art stenosis noted on imaging, with minimal stenosis noted on R. Pt asymptomatic and no vascular surgical intervention is required at this time. DO recommend pt undergo BP eval with cuff on RIGHT ARM, for most accurate measurement. Any further eval would require CTA imaging, but not necessary in light of her being asymptomatic and her significant renal insufficiency. Pt ok with follow up in office in 6 months for surveillance on her R renal stent and reeval for sx of subclavian steal/claudication. Office will call to schedule. Please call if needed. 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 Pt denies sx of L arm claudication, or dizziness/near syncope when using L arm, but states she uses her L arm very little, as she is right handed. Questionable hx of mesenteric art stenosis/chronic mesenteric ischemia, no sx currently. Definite hx of R renal art stent placement, appears patent on current imaging. L renal art not well visualized, but does have hx of L renal atrophy, likely d/t occlusion. Pt denies SANON, fever, chest pain, SOB, abd pain, N/V, rest pain, claudication, ulcerations, other complaints. Pt states feeling well and would like to go home. Extremity arterial US demonstrates L subclavian art stenosis. Allergies Allergy/AdvReac Type Severity Reaction Status Date / Time Penicillins Allergy Intermediate Rash Verified 10/13/20 18:13 Quinolones Allergy Intermediate Rash Verified 10/13/20 18:13 aspirin AdvReac Mild burning in Verified 10/13/20 18:13 stomach Home Medications Medication Instructions Recorded Confirmed Type amlodipine 10 mg PO QAM 03/31/19 10/13/20 History atorvastatin 20 mg PO QAM #30 tab 04/12/19 10/13/20 Rx hydralazine 100 mg PO TID #90 tab 04/12/19 10/13/20 Rx pantoprazole 40 mg PO DAILYBB 09/06/20 10/13/20 History sennosides-docusate sodium [Senna 1 tab-cap PO BID 09/06/20 10/13/20 History with Docusate Sodium] Eliquis 2.5 mg PO BID #0 tab 09/09/20 10/13/20 Rx furosemide [Lasix] 20 mg PO QAM 09/26/20 10/13/20 History isosorbide dinitrate 10 mg PO TID 09/26/20 10/13/20 History potassium chloride [Klor-Con M20] 20 meq PO QAM 09/26/20 10/13/20 History clonidine HCl 0.2 mg PO BID #120 tab 10/01/20 10/13/20 Rx Patient History Medical History (Updated 10/20/20 @ 10:02 by Dawna Fitzpatrick PA-C) 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 Coronary artery disease DM type 2 (diabetes mellitus, type 2) Do not resuscitate status Dyslipidemia Goals of care, counseling/discussion LBBB (left bundle branch block) Mild aortic stenosis Mild mitral stenosis Mitral regurgitation Subclavian arterial stenosis Surgical History H/O repair of left rotator cuff H/O varicose vein stripping History of appendectomy History of hysterectomy History of stent insertion of renal artery R renal artery; 2020 in [facility] Social History Smoking Status: Never smoker Tobacco Type: Cigarettes Hx Alcohol Use: No Hx Substance Use: No Preferred Language: Fijian 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 Ability: Effective [employer]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[employer] Required: No Beliefs That Will Affect Care: None marital status: / Current Living Situation: Family Current Living Situation Comment: lives w/ dtr Other Information That Helps Us Care for You: No Feels Safe at Home: Yes Safety Concerns: Feels Safe At This Time Assistive Devices: None Review of Systems Review of Systems: All systems reviewed & are unremarkable except as noted in HPI & below Physical Exam Constitutional: WD/WN, vitals as above + thin, healthy appearing, cooperative and comfortable; not in distress Eyes: PERRL, conjunctivae normal, anicteric sclerae ENMT: Ears: no hearing impairment Neck: trachea midline Respiratory: normal respiratory effort, lungs clear to auscultation Cardiovascular: Rate/Rhythm: regular rate and regular rhythm Vessels: femoral pulses present (+2 RLE, +3LLE), posterior tibial pulses present (nonpalpable), dorsalis pedis pulses present (nonpalpable) and radial pulses present (LUE +2, RUE +3); + abnormal peripheral pulses Extremities: normal capillary refill; no edema Gastrointestinal (Abdomen): normal bowel sounds, soft, nontender, no hepatosplenomegaly Musculoskeletal: no cyanosis or clubbing, extremities motor strength 5/5 Skin: no rashes, warm and dry Neurologic: moves all extremities; no focal motor deficits, + not awake and not confused Psychiatric: A+Ox3, euthymic affect Results & Data ([facility]) Vital Signs (Past 12 Hours) Vital Signs Temp Pulse Pulse Resp BP Pulse Ox 10/20/20 08:00 62 10/20/20 07:28 36.9 C 57 L 18 178/57 H 93 10/20/20 06:40 191/67 H 10/20/20 03:35 36.8 C 57 L 18 158/52 H 94 10/20/20 00:13 36.8 C 57 L 50 L 16 153/56 H 96
[2020-10-20] MEDS: SPIRONOLACTONE 25 MG TAB PO SCH (11:56)
--- NOTE | 2020-10-20 16:11 | Hospitalist Progress Note ---
Date of Service October 20, 2020 Assessment & Plan (1) Resistant hypertension: BP improved on current therapy which includes addition of spironolactone 25mg PO daily. Not on ACEI, ARB, Entresto because of renal insufficiency. Known h/o ALEXANDER s/p stent. Also wtih HD significant left subclavian stenosis seen on ultrasound. Nephrology to continue titrating medications for goal BP, 130/80 in proteinuric CKD. Of note, however, she is 89 and most of the studies do not include her age group which will make her more likely for adverse side effects from hypotension, potential AMARIS and changes in potassium. Aggressive control to this goal may not be ideal. (2) Rectal bleeding: Likely secondary to on chronic ischemic colitis. No CT evidence of significant bowel wall edema. Patient had gastroenterology input and endoscopy was deferred given lack of ongoing bleeding. Patient has been tolerating diet. Hemoglobin remains stable. Continue with Eliquis. (3) CHF due to valvular disease: "Chronic CHF" with multiple hospitalizations this year. Records requested from [place]. Echo of the heart was done during her recent admission to the hospital. Cont current diuretic therapy, ,daily weights, strict I/Os and a low salt diet. (4) Nephrotic syndrome: (5) CKD (chronic kidney disease), stage III: proteinuric CKD present. RAAS agents not ideal, and technically she is elderly and may not benefit from ALEXANDER blockade. Plan per nephro. (6) Pleural effusion: CT noncontrast to better define as she is exhibiting dyspnea on exertion. These are minimal although there is significant motion artifact on the CT scan. Cont current diuretics. (7) Chronic anticoagulation: Cont Eliquis (8) Subclavian arterial stenosis: Asymptomatic and per vascular surgery today, she doesn't require further workup at this time. (9) DM type 2 (diabetes mellitus, type 2): covered with carb coverage and correction factor. (10) DVT prophylaxis: Eliquis DNR/DNI Dispo- to home when medically optimized. Kaila Hood DO [facility] Hospitalist Admission and Anticipated Discharge Date Admission Date: October 13, 2020 Subjective 89 yo F admitted for GI bleeding This has resolved and she has been placed back on Eliquis She has significant BP issues and is being worked up for secondary HTN- Neprhology following Has proteinuria Denies any pain, breathing issues, or other symptoms at this time. Many admissions in the last 6 months [facility] [place]. She has a hemodynamically significant stenosis of the L subclavian artery, however, denies any symptoms of subclavian steal and no symptoms of coolness to left arm, numbness, etc. Per vascular no further workup at this time. Daughter cares for her at home. Tolerating PO PT evaluated her and felt she would be safe to return home when medically stable. Improvement of BP after addition of aldactone. Review of Systems Review of Systems: All systems reviewed & are unremarkable except as noted in Subjective Physical Exam Physical Exam: CONSTITUTIONAL: WNWD, vitals as above, generally well- appearing EYES: normal conjunctivae, no scleral icterus ENT: external ear and nose normal, MMM RESPIRATORY: clear to auscultation bilaterally, crackles at the right base, no rales or wheezes, normal respiratory effort CARDIOVASCULAR: regular rate and rhythm, S1 and 2 heard without murmurs, gallops or rubs, no JVD, no peripheral edema, extremities are wwp GASTROINTESTINAL: soft, nontender, nondistended MUSCULOSKELETAL: strength 5/5 throughout, head is normocephalic and atraumatic SKIN: warm and dry NEUROLOGIC: CN 2-12 grossly intact, no sensory deficit, normal cognition, normal speech, no tremor PSYCHIATRIC: alert cooperative and oriented to person, place and time. Results & Data Results & Data ([facility]) Vital Signs (Past 12 Hours) Vital Signs Temp Pulse Pulse Resp BP Pulse Ox 10/20/20 15:35 37.0 C 55 L 17 149/41 H 93 10/20/20 10:48 36.8 C 50 L 19 162/58 H 96 10/20/20 08:00 62 10/20/20 07:28 36.9 C 57 L 18 178/57 H 93 10/20/20 06:40 191/67 H Laboratory Results BMP 10/19/20 10/20/20 16:54 06:40 Sodium 138 139 Potassium 3.5 3.3 L Chloride 104 105 Carbon Dioxide 27 26 BUN 15 18 Creatinine 1.44 H 1.36 H Glucose 149 H 147 H Calcium 8.0 L 8.4 L Urine 10/19/20 Range/Units 20:47 Urine Color Yellow Urine Appearance Clear (Clear) Urine pH 6.5 (4.5-7.5) Ur Specific Rosalie 1.018 (1.000-1.030) Urine Protein 3+ H (Negative) Urine Glucose (UA) Negative (Negative) Medications Administered Current Inpatient Medications Acetaminophen (Acetaminophen 325 Mg Tab) 650 mg PO Q4H PRN PRN Reason: Pain or Fever Stop: 11/12/20 21:39 Last Admin: 10/19/20 06:04 Dose: 650 mg Documented by: Amlodipine Besylate (Amlodipine Besylate 5 Mg Tab) 10 mg PO QAM [facility] Stop: 11/13/20 08:59 Last Admin: 10/20/20 07:55 Dose: 10 mg Documented by: Apixaban (Apixaban 2.5 Mg Tab) 2.5 mg PO BID [facility] Stop: 11/14/20 20:59 Last Admin: 10/20/20 07:54 Dose: 2.5 mg Documented by: Atorvastatin Calcium (Atorvastatin 20 Mg Tab) 20 mg PO QAM [facility] Stop: 11/13/20 08:59 Last Admin: 10/20/20 07:54 Dose: 20 mg Documented by: Clonidine HCl (Clonidine Hcl 0.3 Mg Tab) 0.3 mg PO BID [facility] Stop: 11/15/20 20:59 Last Admin: 10/20/20 07:53 Dose: 0.3 mg Documented by: Dextrose (Dextrose 50% 50 Ml Syringe) 25 - 50 ml IV UD PRN; Protocol PRN Reason: Hypoglycemia Protocol Stop: 11/12/20 21:59 Furosemide (Furosemide 20 Mg Tab) 20 mg PO QAM [facility] Stop: 11/13/20 08:59 Last Admin: 10/20/20 07:55 Dose: 20 mg Documented by: Glucagon (Glucagon For Inj 1 Mg Vial) 1 mg IM UD PRN; Protocol PRN Reason: Hypoglycemia Protocol Stop: 11/12/20 21:59 Glucose (Glucose 40% Gel 15 Gm Tube) 15 - 30 gm PO UD PRN; Protocol PRN Reason: Hypoglycemia Protocol Stop: 11/12/20 21:59 Glucose (Glucose 10 Tabs/Tube) 4 - 8 tabs PO UD PRN; Protocol PRN Reason: Hypoglycemia Protocol Stop: 11/12/20 21:59 Hydralazine HCl (Hydralazine Tab 50 Mg Tab) 100 mg PO TID [facility] Stop: 11/12/20 21:39 Last Admin: 10/20/20 14:50 Dose: 100 mg Documented by: Hydralazine HCl (Hydralazine Hcl 20 Mg/Ml Vial) 7.5 mg IV Q6H PRN PRN Reason: Hypertension Stop: 11/14/20 03:10 Last Admin: 10/19/20 04:23 Dose: 7.5 mg Documented by: Insulin Aspart (Insulin Aspart 100 Units/Ml 3 Ml Pen) 0 units SC ACHS [facility] Stop: 11/12/20 21:39 Last Admin: 10/20/20 11:56 Dose: 3 units Documented by: Isosorbide Dinitrate (Isosorbide Dinitrate 10 Mg Tab) 10 mg PO 0700,1200,1700 [facility] Stop: 11/12/20 21:39 Last Admin: 10/20/20 11:58 Dose: 10 mg Documented by: Melatonin (Melatonin 3 Mg Tab) 3 mg PO HS PRN PRN Reason: Sleep Stop: 11/16/20 19:12 Last Admin: 10/18/20 20:52 Dose: 3 mg Documented by: Miscellaneous (Carbohydrates For Hypoglycemia ) 15 - 30 gm PO UD PRN PRN Reason: Hypoglycemia Treatment Stop: 11/12/20 21:59 Nitroglycerin (Nitroglycerin Sl 0.4 Mg/Tab Tab) 0.4 mg SL UD PRN PRN Reason: Chest Pain Stop: 11/12/20 21:39 Ondansetron HCl (Ondansetron Inj 2 Mg/Ml 2 Ml Vial) 4 mg IV Q6H PRN PRN Reason: Nausea Stop: 11/12/20 21:39 Pantoprazole Sodium (Pantoprazole 40 Mg Tab) [facility] [place]: 11/14/20 08:59 Last Admin: 10/20/20 07:55 Dose: 40 mg Documented by: Potassium Chloride (Potassium Chloride Crtab 20 Meq Tabcr) 20 meq PO QAM [facility] Stop: 11/13/20 08:59 Last Admin: 10/20/20 07:54 Dose: 20 meq Documented by: Spironolactone (Spironolactone 25 Mg Tab) 25 mg PO QAM [facility] Stop: 11/19/20 10:09 Last Admin: 10/20/20 11:56 Dose: 25 mg Documented by: (1) CKD (chronic kidney disease), stage III Chronic kidney disease stage 3 subtype: stage 3b (GFR 30-44) Qualified Code(s ): N18.32 - Chronic kidney disease, stage 3b
--- NOTE | 2020-10-20 16:28 | Nephrology Progress Note ---
Date of Service October 20, 2020 Assessment & Plan (1) Nephrotic syndrome: 3.5 gm proteinuria - nephrotic range - with resistant HTN and repeated admissions for volume OL, consistent with nephrotic syndrome, w/ slightly better SBP 150-160s. Her blood pressures this admission have ranged from 160s to 190s and have generally been in the 160s and 170s systolic. she is on hardly any diuretic ; needs a stronger/larger diuretic dose; this can however affect her valvular heart failure status and she suffers from incontinenceso will be cautious. do note also that nitrates and hydralazine can both cause fluid retention; would like to lower clonidine as well ideally. secondary work up to date> renal duplex (poor study); 24 hr urine for catecholamines, serum catecholamines. hx of renal artery stenting. -goal is for ARB trial and more diuretic as well as MC antagonist -ordered serologic w/u for nephrotic syndrome for AM labs -need to get outside records from [facility] for clinic - our hospitalist RN will help Present on Admission?: Yes (2) Resistant hypertension: likely from NS SBP running 150s-160s, a bit improved >> goal is to bring slowly to 140-150s if we can while closely monitoring ambulatory status -will give additional 20 mg po lasix as well this afternoon along wtih 20 mEq extra K po -lowered clonidine back to 0.2 mg bid -started spironolactone 25 mg po daily this am -cont diet/other bp meds -f/u PT recs (3) Pleural effusion: Moderate right pleural effusion noted on admission imaging and increased compared to imaging from prior admissions at least per report > still w/ BL pleural effusions cont current diuretic > 20 mg lasix and spironolactone 25 mg daily -low threshold for chest CT and did d/w pt/daughter and Dr Hood (4) Hypokalemia: To basic metabolic panel to her labs from today; has been an issue intermittently during admission. bmp should be obtained daily. Not on standing potassium supplements currently. not on K supplement and with no K issues prior to admission as OP > ? if she was taking lasix or not [employer] -K lower this am and would not necessarily supplement since she had hernandez antagonist dose -for now cont lasix current dose and supplement K prn (5) CKD (chronic kidney disease), stage III: ckd 3B if not CKD 4 > baseline creatinine 1.6-1.8; has been better than baseline here. Also with 3.5 gm proteinuria. high risk for ESRD; have not discussed this w/ pt yet in terms of her goals of care. -will need OP f/u in CKD clinic w/ our group -will need to get records of hospitalizations in [facility] for [facility] -daily bmp (6) Atrophy of left kidney: in theory can cause renovascular HTN; s/p stent; needs renal f/u at d/c Admission and Anticipated Discharge Date Admission Date: October 13, 2020 Subjective no interval clinical events. had first dose spironolactone today. pt denies c/o including sob "except when I get up," also nursing concerns about pt balance getting up to bathroom > she refuses to use walker but unsteady on feet. denies lightheadedness/orthostatic sx Review of Systems Review of Systems: All systems reviewed & are unremarkable except as noted in Subjective Physical Exam Constitutional: well developed, well nourished, + frail appearing and cooperative; no acute distress Eyes: EOM intact bilaterally ENMT: Ears: no external ear abnormality Nose: no external nose abnormality Mouth: + dry oral mucous membranes Neck: no nuchal rigidity Respiratory: normal respiratory effort Auscultation: + diminished lung sounds and + crackles (bibasilar) Cardiovascular: Rate/Rhythm: regular rate and regular rhythm Heart Sounds: + murmur Extremities: no edema Gastrointestinal (Abdomen): Inspection/Auscultation: normal bowel sounds Percussion/Palpation: abdomen soft; abdomen nontender Musculoskeletal: Extremities: strength 5/5 throughout Skin: no rashes, warm and dry Psychiatric: A+Ox3, euthymic affect Speech: normal rate/rhythm/volume of speech Results & Data ([place]) Vital Signs (Past 12 Hours) Vital Signs Temp Pulse Pulse Resp BP Pulse Ox 10/20/20 16:00 52 L 10/20/20 15:35 37.0 C 55 L 17 149/41 H 93 10/20/20 10:48 36.8 C 50 L 19 162/58 H 96 10/20/20 08:00 62 10/20/20 07:28 36.9 C 57 L 18 178/57 H 93 10/20/20 06:40 191/67 H (1) CKD (chronic kidney disease), stage III Chronic kidney disease stage 3 subtype: stage 3b (GFR 30-44) Qualified Code(s): N18.32 - Chronic kidney disease, stage 3b
[2020-10-20] MEDS ORDERED: FUROSEMIDE 20 MG TAB PO ONE (16:56)
[2020-10-20] MEDS ORDERED: POTASSIUM CHLORIDE CRTAB 20 MEQ TABCR PO ONE (16:57)
--- NOTE | 2020-10-20 17:41 | CT Scan Report ---
CT SCAN OF THE CHEST WITHOUT IV CONTRAST CLINICAL HISTORY: Dyspnea on exertion. COMPARISON STUDY: Chest x-ray dated 10/19/2020. Chest CT dated 02/10/2016. TECHNIQUE: CT scan of the thorax was performed from the thoracic inlet to the upper abdomen. Images are reviewed in the axial, sagittal, and coronal planes. IV contrast was not administered for this ex amination as per the referring clinician. A dose lowering technique was utilized adhering to the fred isiah of KAUR. The examination is compromised by motion artifact. CT DOSE: 251.66 mGy.cm FINDINGS: Thyroid: Heterogeneous. Thoracic aorta: There is atherosclerotic calcification of the thoracic aorta, which is normal in dinorah chris and demonstrates standard 3-vessel arch anatomy. Heart: The heart is mildly enlarged noting trace pericardial effusion. The coronary arteries and mitr al annulus are densely calcified. There is diminished attenuation of the cardiac blood pool as compar ed to the myocardium suggesting anemia. Lungs and pleural spaces: Evaluation of the lung parenchyma is degraded by motion artifact. There are small right and trace left pleural effusions with associated atelectasis. The trachea and central ai rways are clear. No airspace consolidation is seen typical for pneumonia. There is a 7 mm groundglass nodule in the right upper lobe seen on image #79. This was not clearly seen previously. A 7 mm right lower lobe pulmonary nodule on image #95 is unchanged from 2016 and of doubtful significance. Foci o f scarring/atelectasis are seen throughout both lungs. Mediastinum: There is no mediastinal lymphadenopathy. Kamilla: Not well assessed without IV contrast. Axillae: There is no axillary lymphadenopathy. Upper abdomen: There is asymmetric cortical atrophy of the left kidney as compared the right. A small hiatal hernia is noted. Skeletal structures: The skeletal structures are osteopenic. Degenerative change and hyperkyphosis ar e noted in the thoracic spine. No lytic or blastic bony lesions are seen. IMPRESSION: 1. Cardiomegaly. 2. There are small right and trace left pleural effusions. 3. No airspace consolidation is seen typical for pneumonia. 4. A 7 mm groundglass nodule in the right upper lobe is indeterminant and may be inflammatory. This w as not clearly seen in 2016 and can be followed if clinically warranted. Stable appearing 5. Additional findings as above. Please refer to below summary of Fleischner criteria recommendations for follow-up of incidental CT n odules (H MacMahon, Guidelines for management of small pulmonary nodules detected on CT scans: A jeb lilly from the Fleischner Society, Radiology 237: [phone].) SOLID NODULES Solitary nodule size: <6 mm * low risk patients: no follow-up needed * high risk patients: optional CT at 12 months Solitary nodule size: 6-8 mm * low risk patients: follow-up at 6-12 months, then consider further follow-up at 18-24 months * high risk patients: initial follow-up CT at 6-12 months and then at 18-24 months if no change Solitary nodule size: >8 mm * either low or high risk patients - consider follow-up CT at 3 months, and/or CT-PET, and/or biopsy Multiple nodules size: <6 mm * low risk patients: no routine follow-up * high risk patients: optional CT at 12 months Multiple nodules size: 6-8 mm * low risk patients: follow-up at 3-6 months, then consider further follow-up at 18-24 months * high risk patients: follow-up at 3-6 months, then at 18-24 months if no change Multiple nodules size: >8 mm * low risk patients: follow-up at 3-6 months, then consider further follow-up at 18-24 months * high risk patients: follow-up at 3-6 months, then at 18-24 months if no change Note: newly detected indeterminate nodule in persons 35 years of age or older. * low risk patients: minimal or absent history of smoking and/or other known risk factors * high risk patients: history of smoking or of other known risk factors (e.g. first degree relative with lung cancer, or exposure to asbestos, radon, uranium) * if a nodule up to 8 mm is partly solid or is ground glass further follow-up is required after 24 m onths to exclude possible slow growing adenocarcinoma (KIEL) SUBSOLID NODULES Solitary pure ground-glass nodule * nodule size <6 mm - no CT follow-up required * nodule size >=6 mm - follow-up CT at 6-12 months, then every 2 years until 5 years Solitary part-solid nodule * nodule size <6 mm - no CT follow-up required * nodule size >=6 mm - follow-up CT at 3-6 months. If unchanged, and solid component remains <6 mm, then annual follow-up for 5 years Multiple subsolid nodules * nodule size <6 mm - follow-up CT at 3-6 months, consider further follow-up at 2 and 4 years if sta ble * nodule size >=6 mm - follow-up CT at 3-6 months, subsequent management based on the most suspiciou s nodule(s) ACT 112: Negative or not required by law. Electronically signed by: Abran Chu M.D. 10/20/2020 5:40 PM
[2020-10-20] MEDS: cloNIDine HCL 0.1 MG TAB PO SCH (21:22)
[2020-10-21] MEDS: ISOSORBIDE DINITRATE 10 MG TAB PO SCH ×3 (06:37→17:05)
[2020-10-21 06:51] LABS: BUN Creatinine Ratio 11.3 (10-20); Creatinine Clr Calc Pharmacy 20.5 ml/min; Est GFR (Non-African American) 28.5 ml/min; Potassium 3.4 mmol/L (3.5-5.1)
[2020-10-21] MEDS: amLODIPine BESYLATE 5 MG TAB PO SCH (08:27)
[2020-10-21] MEDS: APIXABAN 2.5 MG TAB PO SCH ×2 (08:27→21:03)
[2020-10-21] MEDS: POTASSIUM CHLORIDE CRTAB 20 MEQ TABCR PO SCH (08:28)
[2020-10-21] MEDS: PANTOprazole 40 MG TAB PO SCH (08:28)
[2020-10-21] MEDS: SPIRONOLACTONE 25 MG TAB PO SCH (08:28)
[2020-10-21] MEDS: hydrALAZINE TAB 50 MG TAB PO SCH ×3 (08:28→21:03)
[2020-10-21] MEDS: FUROSEMIDE 20 MG TAB PO SCH (08:28)
[2020-10-21] MEDS: INSULIN ASPART 100 UNITS/ML 3 ML PEN SC SCH ×4 (08:29→21:07)
[2020-10-21 08:58] LABS: Hepatitis B Surf Ag Rflx Conf Neg (Neg)
[2020-10-21 09:27] LABS: Hepatitis C IgG 13Yrs+Old_Rflx Neg (Neg)
[2020-10-21] MEDS: cloNIDine HCL 0.1 MG TAB PO SCH ×2 (09:50→21:06)
[2020-10-21] MEDS: ATORVASTATIN 20 MG TAB PO SCH (10:10)
--- NOTE | 2020-10-21 10:58 | Nephrology Progress Note ---
Date of Service October 21, 2020 Assessment & Plan (1) Nephrotic syndrome: 3.5 gm proteinuria - nephrotic range - with resistant HTN and repeated admissions for volume OL, consistent with nephrotic syndrome, w/ slightly worse sbp 160s. Her blood pressures this admission have ranged from 160s to 190s and have generally been in the 160s and 170s systolic. she is on hardly any diuretic ; needs a stronger/larger diuretic dose; this can however affect her valvular heart failure status and she suffers from incontinenceso will be cautious. do note also that nitrates and hydralazine can both cause fluid retention; would like to lower clonidine as well ideally. secondary work up to date> renal duplex (poor study); 24 hr urine for catecholamines, serum catecholamines. hx of renal artery stenting. -goal is for ARB trial and more diuretic as well as MC antagonist - as below -f/u serologic w/u for nephrotic syndrome for AM labs -need to get outside records from [facility] for clinic - our hospitalist RN will help (2) Resistant hypertension: likely from NS SBP running 160-170s, a bit worse >> goal is to bring slowly to 140-150s if we can while closely monitoring ambulatory status -cont spironolactone 25 mg po daily -cont lasix 20 mg daily -cont K 20 mEq bid -cont lower dose of clonidine 0.2 mg bid but will look to down titrate this evenign possibly - with conduction issues noted on TTE and relative bradycardia would minimize/avoid this medication -start lisinopril 5 mg daily this afternoon -hold parameter for hydralazine for sbp <160 -cont diet/other bp meds >>did explain to her I anticipate about 2-3 days more while we titrate medications (3) Pleural effusion: Moderate right pleural effusion noted on admission imaging and increased compared to imaging from prior admissions at least per report > still w/ BL pleural effusions cont current diuretic > 20 mg lasix and spironolactone 25 mg daily -low threshold for chest CT and did d/w pt/daughter and Dr Hood (4) Hypokalemia: has been an issue intermittently during admission. bmp should be obtained daily. cont standing potassium supplements (5) CKD (chronic kidney disease), stage III: ckd 3B if not CKD 4 > baseline creatinine 1.6-1.8; has been better than baseline here. Also with 3.5 gm proteinuria. high risk for ESRD; have not discussed this w/ pt yet in terms of her goals of care. 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 HTN; s/p stent; needs records, renal f/u at d/c Admission and Anticipated Discharge Date Admission Date: October 13, 2020 Subjective no interval events; HR in high 40s - low 50s this am; c/o poor sleep; states that exertional dyspnea is chronic and stable; PT evaluated patient and recommend return home with walker Review of Systems Review of Systems: All systems reviewed & are unremarkable except as noted in Subjective Physical Exam Constitutional: well developed, well nourished, + frail appearing and cooperative; no acute distress Eyes: EOM intact bilaterally ENMT: Ears: no external ear abnormality Nose: no external nose abnormality Mouth: + dry oral mucous membranes Neck: no nuchal rigidity Respiratory: normal respiratory effort Auscultation: + diminished lung sounds and + crackles (Left base) Cardiovascular: Rate/Rhythm: regular rate and regular rhythm Heart Sounds: + murmur Extremities: no edema Gastrointestinal (Abdomen): Inspection/Auscultation: normal bowel sounds Percussion/Palpation: abdomen soft; abdomen nontender Musculoskeletal: Extremities: strength 5/5 throughout Skin: no rashes, warm and dry Neurologic: Moves all extremities, fluent speech Psychiatric: A+Ox3, euthymic affect Speech: normal rate/rhythm/volume of speech Results & Data ([facility]) Vital Signs (Past 12 Hours) Vital Signs Temp Pulse Pulse Resp BP Pulse Ox 10/21/20 07:40 36.9 C 51 L 18 170/58 H 94 10/21/20 03:30 36.6 C 51 L 18 169/57 H 98 10/21/20 00:00 36.7 C 63 20 165/62 H 94 10/20/20 22:49 55 L Laboratory Results 10/17/20 05:35 10/21/20 06:[address] ab/dpelvis Thyroid: Heterogeneous. Thoracic aorta: There is atherosclerotic calcification of the thoracic aorta, which is normal in caliber and demonstrates standard 3-vessel arch anatomy. Heart: The heart is mildly enlarged noting trace pericardial effusion. The coronary arteries and mitral annulus are densely calcified. There is diminished attenuation of the cardiac blood pool as compared to the myocardium suggesting anemia. Lungs and pleural spaces: Evaluation of the lung parenchyma is degraded by motion artifact. There are small right and trace left pleural effusions with associated atelectasis. The trachea and central airways are clear. No airspace consolidation is seen typical for pneumonia. There is a 7 mm groundglass nodule in the right upper lobe seen on image #79. This was not clearly seen previously. A 7 mm right lower lobe pulmonary nodule on image #95 is unchanged from 2016 and of doubtful significance. Foci of scarring/atelectasis are seen throughout both lungs. Mediastinum: There is no mediastinal lymphadenopathy. Kamilla: Not well assessed without IV contrast. Axillae: There is no axillary lymphadenopathy. Upper abdomen: There is asymmetric cortical atrophy of the left kidney as compared the right. A small hiatal hernia is noted. Skeletal structures: The skeletal structures are osteopenic. Degenerative change and hyperkyphosis are noted in the thoracic spine. No lytic or blastic bony lesions are seen. IMPRESSION: 1. Cardiomegaly. 2. There are small right and trace left pleural effusions. 3. No airspace consolidation is seen typical for pneumonia. 4. A 7 mm groundglass nodule in the right upper lobe is indeterminant and may be inflammatory. This was not clearly seen in 2016 and can be followed if clinically warranted. Stable appearing 5. Additional findings as above. (1) CKD (chronic kidney disease), stage III Chronic kidney disease stage 3 subtype: stage 3b (GFR 30-44) Qualified Code(s): N18.32 - Chronic kidney disease, stage 3b
[2020-10-21] MEDS ORDERED: bisacodyL 5 MG TABEC PO ONE (13:40)
[2020-10-21] MEDS ORDERED: lisinopril 5 MG TAB PO SCH (14:00)
--- NOTE | 2020-10-21 15:39 | Hospitalist Progress Note ---
Date of Service October 21, 2020 Assessment & Plan (1) Resistant hypertension: BP somewhat improved but not close enough to goal at this time on increased clonidine 0.3mg BID. Appreciate Nephro recs. Clonidine has been decreased to 2.2 mg twice daily She has been on hydralazine 100 mg 3 times daily and Lisinopril 5 mg has been added Blood pressure remains reasonably stable Likely be discharged tomorrow (2) Rectal bleeding: Likely secondary to on chronic ischemic colitis. No CT evidence of significant bowel wall edema. Patient had gastroenterology input and endoscopy was deferred given lack of ongoing bleeding. Patient has been tolerating diet. Hemoglobin remains stable. Continue with Eliquis. (3) Subclavian arterial stenosis: Asymptomatic, equal pulses bilaterally on exam. No syncope, lighthead edness, etc. Appreciate vascular surgery input and recommendation Asymptomatic and does not require any further treatment (4) CHF due to valvular disease: "Chronic CHF" with multiple hospitalizations this year. Records requested from [place]. Echo of the heart was done during her recent admission to the hospital. Cont current diuretic therapy, ,daily weights, strict I/Os and a low salt diet. No signs of fluid overload (5) DM type 2 (diabetes mellitus, type 2): At goal, covered with carb coverage and correction factor. (6) CKD (chronic kidney disease), stage III: Has nephrotic syndrome Appreciate nephrology input and recommendation We will monitor PRP (7) Proteinuria: Nephrotic range of proteinuria We will control hypertension (8) Pleural effusion: Chronic and likely secondary to CHF Cont daily diuretics. (9) Chronic anticoagulation: Cont Eliquis (10) DVT prophylaxis: Continue Eliquis PT and OT evaluation Likely discharge home tomorrow Admission and Anticipated Discharge Date Admission Date: October 13, 2020 Subjective 10/21/2020 The patient was seen and examined in telemetry unit She has been feeling much better and wants to go home Denies any significant symptoms No chest pain, palpitation, no abdominal pain, nausea no vomiting and no increasing shortness of breath Review of Systems Review of Systems: All systems reviewed and are unremarkable except as noted below Neurologic: + generalized weakness Physical Exam Physical Exam: Lying in bed comfortably and anxiously Constitutional: average body habitus; not ill appearing Eyes: PERRL, conjunctivae normal, anicteric sclerae ENMT: external ear and nose normal, oropharynx normal Neck: trachea midline, no thyromegaly Respiratory: + labored breathing; no respiratory distress Auscultation: + diminished lung sounds and + crackles (Minimal crackles at the bases) Cardiovascular: Rate/Rhythm: regular rate and regular rhythm Heart Sounds: + murmur (2/6 ESM over precordium) Extremities: no edema Gastrointestinal (Abdomen): Inspection/Auscultation: normal bowel sounds; abdomen not distended Percussion/Palpation: abdomen soft; abdomen nontender Musculoskeletal: No acute arthritis in any joint Neurologic: Alert, awake and oriented x3. Generally weak. No focal neurological deficit Psychiatric: A+Ox3, euthymic affect Lymphatic: no cervical or axillary lymphadenopathy Results & Data Results & Data ([facility]) Vital Signs (Past 12 Hours) Vital Signs Temp Pulse Resp BP Pulse Ox 10/21/20 10:53 36.7 C 52 L 16 152/59 H 96 10/21/20 07:40 36.9 C 51 L 18 170/58 H 94 10/21/20 03:30 36.6 C 51 L 18 169/57 H 98 Laboratory Results [facility] 10/21/20 06:02 Sodium 136 Potassium 3.4 L Chloride 103 Carbon Dioxide 30 BUN 18 Creatinine 1.59 H Glucose 155 H Calcium 8.0 L Medications Administered Current Inpatient Medications Acetaminophen (Acetaminophen 325 Mg Tab) 650 mg PO Q4H PRN PRN Reason: Pain or Fever Stop: 11/12/20 21:39 Last Admin: 10/19/20 06:04 Dose: 650 mg Documented by: Amlodipine Besylate (Amlodipine Besylate 5 Mg Tab) [facility] [place] Stop: 11/13/20 08:59 Last Admin: 10/21/20 08:27 Dose: 10 mg Documented by: Apixaban (Apixaban 2.5 Mg Tab) 2.5 mg PO BID [facility] Stop: 11/14/20 20:59 Last Admin: 10/21/20 08:27 Dose: 2.5 mg Documented by: Atorvastatin Calcium (Atorvastatin 20 Mg Tab) 20 mg PO QAM [facility] Stop: 11/13/20 08:59 Last Admin: 10/21/20 10:10 Dose: 20 mg Documented by: Clonidine HCl (Clonidine Hcl 0.1 Mg Tab) 0.2 mg PO BID [facility] Stop: 11/19/20 20:59 Last Admin: 10/21/20 09:50 Dose: 0.2 mg Documented by: Dextrose (Dextrose 50% 50 Ml Syringe) 25 - 50 ml IV UD PRN; Protocol PRN Reason: Hypoglycemia Protocol Stop: 11/12/20 21:59 Furosemide (Furosemide 20 Mg Tab) 20 mg PO QAM [facility] Stop: 11/13/20 08:59 Last Admin: 10/21/20 08:28 Dose: 20 mg Documented by: Glucagon (Glucagon For Inj 1 Mg Vial) 1 mg IM UD PRN; Protocol PRN Reason: Hypoglycemia Protocol Stop: 11/12/20 21:59 Glucose (Glucose 40% Gel 15 Gm Tube) 15 - 30 gm PO UD PRN; Protocol PRN Reason: Hypoglycemia Protocol Stop: 11/12/20 21:59 Glucose (Glucose 10 Tabs/Tube) 4 - 8 tabs PO UD PRN; Protocol PRN Reason: Hypoglycemia Protocol Stop: 11/12/20 21:59 Hydralazine HCl (Hydralazine Tab 50 Mg Tab) 100 mg PO TID [facility] Stop: 11/20/20 13:59 Last Admin: 10/21/20 15:02 Dose: 100 mg Documented by: Insulin Aspart (Insulin Aspart 100 Units/Ml 3 Ml Pen) 0 units SC ACHS [facility] Stop: 11/12/20 21:39 Last Admin: 10/21/20 11:55 Dose: 5 units Documented by: Isosorbide Dinitrate (Isosorbide Dinitrate 10 Mg Tab) 10 mg PO 0700,1200,1700 [facility] Stop: 11/12/20 21:39 Last Admin: 10/21/20 11:56 Dose: 10 mg Documented by: Lisinopril (Lisinopril 5 Mg Tab) 5 mg PO QAM [facility] Stop: 11/20/20 13:59 Last Admin: 10/21/20 15:02 Dose: 5 mg Documented by: Melatonin (Melatonin 3 Mg Tab) 3 mg PO HS PRN PRN Reason: Sleep Stop: 11/16/20 19:12 Last Admin: 10/18/20 20:52 Dose: 3 mg Documented by: Miscellaneous (Carbohydrates For Hypoglycemia ) 15 - 30 gm PO UD PRN PRN Reason: Hypoglycemia Treatment Stop: 11/12/20 21:59 Nitroglycerin (Nitroglycerin Sl 0.4 Mg/Tab Tab) 0.4 mg SL UD PRN PRN Reason: Chest Pain Stop: 11/12/20 21:39 Ondansetron HCl (Ondansetron Inj 2 Mg/Ml 2 Ml Vial) 4 mg IV Q6H PRN PRN Reason: Nausea Stop: 11/12/20 21:39 Pantoprazole Sodium (Pantoprazole 40 Mg Tab) 40 mg PO [facility] Stop: 11/14/20 08:59 Last Admin: 10/21/20 08:28 Dose: 40 mg Documented by: Potassium Chloride (Potassium Chloride Crtab 20 Meq Tabcr) 20 meq PO [facility] Stop: 11/13/20 08:59 Last Admin: 10/21/20 08:28 Dose: 20 meq Documented by: Spironolactone (Spironolactone 25 Mg Tab) 25 mg PO [facility] Stop: 11/19/20 10:09 Last Admin: 10/21/20 08:28 Dose: 25 mg Documented by: (1) CKD (chronic kidney disease), stage III Chronic kidney disease stage 3 subtype: stage 3b (GFR 30-44) Qualified Code(s): N18.32 - Chronic kidney disease, stage 3b
[2020-10-22] MEDS: amLODIPine BESYLATE 5 MG TAB PO SCH (05:24)
[2020-10-22] MEDS: hydrALAZINE TAB 50 MG TAB PO SCH ×3 (05:24→20:47)
[2020-10-22] MEDS: ISOSORBIDE DINITRATE 10 MG TAB PO SCH ×3 (06:08→17:03)
[2020-10-22 06:57] LABS: Basophils # (auto) 0.05 K/uL (0-0.2); Basophils % (auto) 0.6 %; Eosinophils # (auto) 0.16 K/uL (0-0.5); Hematocrit (blood only) 33.5 % (37-47); Hemoglobin 10.6 g/dL (12.0-16.0); Immature Granulocytes # (auto) 0.03 K/uL (0.00-0.02); Immature Granulocytes % (auto) 0.4 %; Lymphocytes # (auto) 1.27 K/uL (1.2-3.4); Lymphocytes % (auto) 15.7 %; Mean Corpuscular Hemoglobin 23.6 pg (25-34); Mean Corpuscular Hgb Conc 31.6 g/dL (32-36); Mean Corpuscular Volume 74.6 fL (80-100); Mean Platelet Volume 8.8 fL (7.4-10.4); Monocytes # (auto) 1.09 K/uL (0.11-0.59); Monocytes % (auto) 13.4 %; Neutrophils # (auto) 5.51 K/uL (1.4-6.5); Neutrophils % (auto) 67.9 %; Platelet Count 287 K/uL (130-400); RDW Coefficient of Variation 16.8 % (11.5-14.5); RDW Standard Deviation 46.2 fL (36.4-46.3); Red Blood Count 4.49 M/uL (4.2-5.4); White Blood Count 8.11 K/uL (4.8-10.8)
[2020-10-22 07:36] LABS: BUN Creatinine Ratio 11.6 (10-20); Calcium 8.4 mg/dl (8.5-10.1); Est GFR (Non-African American) 25.9 ml/min; Magnesium 2.5 mg/dl (1.8-2.4); Phosphorus 3.6 mg/dl (2.5-4.9); Potassium 3.8 mmol/L (3.5-5.1)
[2020-10-22] MEDS: INSULIN ASPART 100 UNITS/ML 3 ML PEN SC SCH ×4 (08:53→20:47)
[2020-10-22] MEDS: PANTOprazole 40 MG TAB PO SCH (08:54)
[2020-10-22] MEDS: POTASSIUM CHLORIDE CRTAB 20 MEQ TABCR PO SCH (08:54)
[2020-10-22] MEDS: FUROSEMIDE 20 MG TAB PO SCH (08:54)
[2020-10-22] MEDS: ATORVASTATIN 20 MG TAB PO SCH (08:54)
[2020-10-22] MEDS: APIXABAN 2.5 MG TAB PO SCH ×2 (08:55→20:46)
[2020-10-22] MEDS: SPIRONOLACTONE 25 MG TAB PO SCH (08:56)
[2020-10-22] MEDS: cloNIDine HCL 0.1 MG TAB PO SCH ×2 (09:22→20:47)
--- NOTE | 2020-10-22 11:04 | Nephrology Progress Note ---
Date of Service October 22, 2020 Assessment & Plan (1) Nephrotic syndrome: 3.5 gm proteinuria - nephrotic range - with resistant HTN and repeated admissions for volume OL, consistent with nephrotic syndrome, w/ slightly worse sbp 160s. Her blood pressures this admission have ranged from 160s to 190s and have generally been in the 160s and 170s systolic. she is on hardly any diuretic ; needs a stronger/larger diuretic dose; this can however affect her valvular heart failure status and she suffers from incontinenceso will be cautious. do note also that nitrates and hydralazine can both cause fluid retention; would like to lower clonidine as well ideally. secondary work up to date> renal duplex (poor study); 24 hr urine for catecholamines, serum catecholamines. hx of renal artery stenting. -goal is for ARB trial and more diuretic as well as MC antagonist - as below -f/u serologic w/u for nephrotic syndrome for AM labs -need to get outside records from [facility] for clinic - our hospitalist RN will help (2) Resistant hypertension: likely from NS SBP running 130-150s, acceptable>> goal is 140-150s if we can while closely monitoring ambulatory status -cont spironolactone 25 mg po daily -cont lasix 20 mg daily -cont K 20 mEq bid -I have down titrated clonidine to 0.1 mg bid starting this evening - with conduction issues noted on TTE and relative bradycardia would minimize/avoid this medication - monitor for rebound HTN in this complex pt -had one dose lisinopril 5 mg -hold parameter for hydralazine for sbp <160 -cont diet/other bp meds >>did explain to her I anticipate about 1-2 days more while we titrate medications (3) Pleural effusion: Moderate right pleural effusion noted on admission imaging and increased compared to imaging from prior admissions at least per report > still w/ BL pleural effusions cont current diuretic > 20 mg lasix and spironolactone 25 mg daily -low threshold for chest CT and did d/w pt/daughter and Dr Hood (4) Hypokalemia: has been an issue intermittently during admission. bmp should be obtained daily. cont standing potassium supplements (5) CKD (chronic kidney disease), stage III: ckd 3B if not CKD 4 > baseline creatinine 1.6-1.8; has been better than baseline here. Also with 3.5 gm proteinuria. high risk for ESRD; have not discussed this w/ pt yet in terms of her goals of care. 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 ongoing poor sleep. sob unchanged. not lightheaded gettign up per her report; tolerating po; no voiding concerns Review of Systems Review of Systems: All systems reviewed & are unremarkable except as noted in Subjective Physical Exam 2 Constitutional: well developed and well nourished; no acute distress Eyes: EOM intact bilaterally ENMT: Ears: no external ear abnormality Nose: no external nose abnormality Mouth: + dry oral mucous membranes Neck: no nuchal rigidity Respiratory: normal respiratory effort Auscultation: + diminished lung sounds and + crackles (bibasilar) Cardiovascular: Rate/Rhythm: regular rhythm and + bradycardic Extremities: no edema Gastrointestinal (Abdomen): Inspection/Auscultation: normal bowel sounds; abdomen not distended Percussion/Palpation: abdomen soft; abdomen nontender Musculoskeletal: Extremities: strength 5/5 throughout Skin: no rashes, warm and dry Neurologic: car[place], fluent speech, no tremor Psychiatric: A+Ox3, euthymic affect Results & Data ([facility]) Vital Signs (Past 12 Hours) Vital Signs Temp Pulse Pulse Resp BP Pulse Ox 10/22/20 10:51 36.8 C 48 L 16 136/54 L 98 10/22/20 07:12 36.7 C 48 L 17 141/52 H 94 10/22/20 04:36 36.8 C 50 L 19 179/55 H 91 10/22/20 00:00 36.6 C 52 L 18 155/64 H 96 10/21/20 23:33 51 L Laboratory Results 10/22/20 06:38 10/22/20 06:38 (1) CKD (chronic kidney disease), stage III Chronic kidney disease stage 3 subtype: stage 3b (GFR 30-44) Qualified Code(s): N18.32 - Chronic kidney disease, stage 3b
--- NOTE | 2020-10-22 16:02 | Hospitalist Progress Note ---
Date of Service October 22, 2020 Assessment & Plan (1) Resistant hypertension: BP somewhat improved but not close enough to goal at this time on increased clonidine 0.3mg BID. Appreciate Nephro recs. Clonidine has been decreased to 2.2 mg twice daily She has been on hydralazine 100 mg 3 times daily and Lisinopril 5 mg has been added Blood pressure remains reasonably stable Has to wait a day or 2 more as per nephrology before she can go home to make sure the blood pressure remains stable does not go up with decreasing dose of clonidine Creatinine slightly up likely secondary to use of lisinopril We will monitor PRP (2) Rectal bleeding: Likely secondary to on chronic ischemic colitis. No CT evidence of significant bowel wall edema. Patient had gastroenterology input and endoscopy was deferred given lack of ongoing bleeding. Patient has been tolerating diet. Hemoglobin remains stable. Continue with Eliquis. (3) Subclavian arterial stenosis: Asymptomatic, equal pulses bilaterally on exam. No syncope, lightheadedness, etc. Appreciate vascular surgery input and recommendation Asymptomatic and does not require any further treatment (4) CHF due to valvular disease: "Chronic CHF" with multiple hospitalizations this year. Records requested from [place]. Echo of the heart was done during her recent admission to the hospital. Cont current diuretic therapy, ,daily weights, strict I/Os and a low salt diet. No signs of fluid overload (5) DM type 2 (diabetes mellitus, type 2): At goal, covered with carb coverage and correction factor. Blood sugar remains stable (6) CKD (chronic kidney disease), stage III: Has nephrotic syndrome Appreciate nephrology input and recommendation We will monitor PRP (7) Proteinuria: Nephrotic range of proteinuria We will control hypertension Management as per wheelchair driver (8) Pleural effusion: Chronic and likely secondary to CHF Cont daily diuretics. (9) Chronic anticoagulation: Cont Eliquis (10) DVT prophylaxis: Continue Eliquis PT and OT evaluation Likely discharge home in a day or 2 Admission and Anticipated Discharge Date Admission Date: October 13, 2020 Subjective 10/21/2020 The patient was seen and examined in telemetry unit She has been feeling much better and wants to go home Denies any significant symptoms No chest pain, palpitation, no abdominal pain, nausea no vomiting and no increasing shortness of breath 10/22/2020 The patient was seen and examined in telemetry unit She wants to go home and denies any symptoms at rest Her blood pressure seems to be reasonably controlled She has not had a bowel movement as of yet Review of Systems Review of Systems: All systems reviewed and are unremarkable except as noted below Neurologic: + generalized weakness Physical Exam Physical Exam: Lying in bed comfortably and anxiously Constitutional: average body habitus; not ill appearing Eyes: PERRL, conjunctivae normal, anicteric sclerae ENMT: external ear and nose normal, oropharynx normal Neck: trachea midline, no thyromegaly Respiratory: + labored breathing; no respiratory distress Auscultation: + diminished lung sounds and + crackles (Minimal crackles at the bases) Cardiovascular: Rate/Rhythm: regular rate and regular rhythm Heart Sounds: + murmur (2/6 ESM over precordium) Extremities: no edema Gastrointestinal (Abdomen): Inspection/Auscultation: normal bowel sounds; abdomen not distended Percussion/Palpation: abdomen soft; abdomen nontender Musculoskeletal: No acute arthritis in any joint Neurologic: Alert, awake and oriented x3 Psychiatric: A+Ox3, euthymic affect Lymphatic: no cervical or axillary lymphadenopathy Results & Data Results & Data ([facility]) Vital Signs (Past 12 Hours) Vital Signs Temp Pulse Resp BP Pulse Ox 10/22/20 15:01 36.7 C 62 18 161/62 H 96 10/22/20 14:35 119/52 L 10/22/20 10:51 36.8 C 48 L 16 136/54 L 98 10/22/20 07:12 36.7 C 48 L 17 141/52 H 94 10/22/20 04:36 36.8 C 50 L 19 179/55 H 91 Laboratory Results Short CBC 10/22/20 Range/Units 06:38 WBC 8.11 (4.8-10.8) K/uL Hgb 10.6 L (12.0-16.0) g/dL Hct 33.5 L (37-47) % Plt Count 287 (130-400) K/uL BMP 10/22/20 06:38 Sodium 136 Potassium 3.8 Chloride 104 Carbon Dioxide 27 BUN 20 H Creatinine 1.72 H Glucose 157 H Calcium 8.4 L Medications Administered Current Inpatient Medications Acetaminophen (Acetaminophen 325 Mg Tab) 650 mg PO Q4H PRN PRN Reason: Pain or Fever Stop: 11/12/20 21:39 Last Admin: 10/19/20 06:04 Dose: 650 mg Documented by: Amlodipine Besylate (Amlodipine Besylate 5 Mg Tab) 10 mg PO QAM [facility] Stop: 11/21/20 04:59 Last Admin: 10/22/20 05:24 Dose: 10 mg Documented by: Apixaban (Apixaban 2.5 Mg Tab) 2.5 mg PO BID [facility] Stop: 11/14/20 20:59 Last Admin: 10/22/20 08:55 Dose: 2.5 mg Documented by: Atorvastatin Calcium (Atorvastatin 20 Mg Tab) 20 mg PO QAM [facility] Stop: 11/13/20 08:59 Last Admin: 10/22/20 08:54 Dose: 20 mg Documented by: Clonidine HCl (Clonidine Hcl 0.1 Mg Tab) 0.1 mg PO BID [facility] Stop: 11/21/20 20:59 Dextrose (Dextrose 50% 50 Ml Syringe) 25 - 50 ml IV UD PRN; Protocol PRN Reason: Hypoglycemia Protocol Stop: 11/12/20 21:59 Furosemide (Furosemide 20 Mg Tab) 20 mg PO QAM [facility] Stop: 11/13/20 08:59 Last Admin: 10/22/20 08:54 Dose: 20 mg Documented by: Glucagon (Glucagon For Inj 1 Mg Vial) 1 mg IM UD PRN; Protocol PRN Reason: Hypoglycemia Protocol Stop: 11/12/20 21:59 Glucose (Glucose 40% Gel 15 Gm Tube) 15 - 30 gm PO UD PRN; Protocol PRN Reason: Hypoglycemia Protocol Stop: 11/12/20 21:59 Glucose (Glucose 10 Tabs/Tube) 4 - 8 tabs PO UD PRN; Protocol PRN Reason: Hypoglycemia Protocol Stop: 11/12/20 21:59 Hydralazine HCl (Hydralazine Tab 50 Mg Tab) 100 mg PO TID [facility] Stop: 11/21/20 04:59 Last Admin: 10/22/20 14:15 Dose: 100 mg Documented by: Insulin Aspart (Insulin Aspart 100 Units/Ml 3 Ml Pen) 0 units SC ACHS [facility] Stop: 11/12/20 21:39 Last Admin: 10/22/20 12:39 Dose: 3 units Documented by: Isosorbide Dinitrate (Isosorbide Dinitrate 10 Mg Tab) 10 mg PO 0700,1200,1700 [facility] Stop: 11/12/20 21:39 Last Admin: 10/22/20 12:39 Dose: 10 mg Documented by: Lisinopril (Lisinopril 5 Mg Tab) [facility] Stop: 11/20/20 13:59 Last Admin: 10/21/20 15:02 Dose: 5 mg Documented by: Melatonin (Melatonin 3 Mg Tab) 3 mg PO HS PRN PRN Reason: Sleep Stop: 11/16/20 19:12 Last Admin: 10/18/20 20:52 Dose: 3 mg Documented by: Miscellaneous (Carbohydrates For Hypoglycemia ) 15 - 30 gm PO UD PRN PRN Reason: Hypoglycemia Treatment Stop: 11/12/20 21:59 Nitroglycerin (Nitroglycerin Sl 0.4 Mg/Tab Tab) 0.4 mg SL UD PRN PRN Reason: Chest Pain Stop: 11/12/20 21:39 Ondansetron HCl (Ondansetron Inj 2 Mg/Ml 2 Ml Vial) 4 mg IV Q6H PRN PRN Reason: Nausea Stop: 11/12/20 21:39 Pantoprazole Sodium (Pantoprazole 40 Mg Tab) 40 mg PO [facility] Stop: 11/14/20 08:59 Last Admin: 10/22/20 08:54 Dose: 40 mg Documented by: Potassium Chloride (Potassium Chloride Crtab 20 Meq Tabcr) 20 meq PO [facility] Stop: 11/13/20 08:59 Last Admin: 10/22/20 08:54 Dose: 20 meq Documented by: Spironolactone (Spironolactone 25 Mg Tab) 25 mg PO [facility] Stop: 11/19/20 10:09 Last Admin: 10/22/20 08:56 Dose: 25 mg Documented by: (1) CKD (chronic kidney disease), stage III Chronic kidney disease stage 3 subtype: stage 3b (GFR 30-44) Qualified Code(s): N18.32 - Chronic kidney disease, stage 3b
[2020-10-22 17:26] LABS: Normetanephrine, Ur 114 mcg/24 h (122-676); Total Metanephrine 171 mcg/24 h (224-832)
[2020-10-22] MEDS: MELATONIN 3 MG TAB PO PRN (20:45)
[2020-10-23 07:52] LABS: BUN Creatinine Ratio 13.7 (10-20); Calcium 8.2 mg/dl (8.5-10.1); Creatinine Clr Calc Pharmacy 15.2 ml/min; Est GFR (African American) 25.2 ml/min; Est GFR (Non-African American) 21.7 ml/min; Potassium 3.8 mmol/L (3.5-5.1)
[2020-10-23] MEDS: INSULIN ASPART 100 UNITS/ML 3 ML PEN SC SCH ×4 (08:15→20:49)
[2020-10-23] MEDS: PANTOprazole 40 MG TAB PO SCH (08:16)
[2020-10-23] MEDS: APIXABAN 2.5 MG TAB PO SCH ×2 (08:16→20:49)
[2020-10-23] MEDS: amLODIPine BESYLATE 5 MG TAB PO SCH (08:16)
[2020-10-23] MEDS: cloNIDine HCL 0.1 MG TAB PO SCH (08:16)
[2020-10-23] MEDS: hydrALAZINE TAB 50 MG TAB PO SCH ×3 (08:16→20:46)
[2020-10-23] MEDS: SPIRONOLACTONE 25 MG TAB PO SCH (08:16)
[2020-10-23] MEDS: ISOSORBIDE DINITRATE 10 MG TAB PO SCH ×3 (08:17→16:52)
[2020-10-23] MEDS: POTASSIUM CHLORIDE CRTAB 20 MEQ TABCR PO SCH (08:17)
[2020-10-23] MEDS: FUROSEMIDE 20 MG TAB PO SCH (08:17)
[2020-10-23] MEDS: ATORVASTATIN 20 MG TAB PO SCH (08:17)
[2020-10-23] MEDS: ACETAMINOPHEN 325 MG TAB PO PRN (13:00)
[2020-10-23] MEDS ORDERED: LORAZEPAM IV STA (15:10)
[2020-10-23] MEDS ORDERED: LORazepam 1 MG/2 ML VIAL IV STA (15:15)
--- NOTE | 2020-10-23 17:13 | Hospitalist Progress Note ---
Date of Service October 23, 2020 Assessment & Plan (1) Resistant hypertension: BP somewhat improved but not close enough to goal at this time on increased clonidine 0.3mg BID. Appreciate Nephro recs. Clonidine has been decreased to 2.2 mg twice daily She has been on hydralazine 100 mg 3 times daily and Lisinopril 5 mg has been added Blood pressure remains reasonably stable Has to wait a day or 2 more as per nephrology before she can go home to make sure the blood pressure remains stable does not go up with decreasing dose of clonidine Creatinine slightly up likely secondary to use of lisinopril We will monitor PRP-creatinine is up Lisinopril has been discontinued and clonidine is on hold Plan to discontinue clonidine altogether Blood pressure seems to be reasonably stable Abnormal movements Noted to have another episode at around 3 PM today Received intravenous Ativan 1 mg and there is controlled Has had this abnormal movements before without any definitive cause found (2) Rectal bleeding: Likely secondary to on chronic ischemic colitis. No CT evidence of significant bowel wall edema. Patient had gastroenterology input and endoscopy was deferred given lack of ongoing bleeding. Patient has been tolerating diet. Hemoglobin remains stable. Continue with Eliquis. (3) Subclavian arterial stenosis: Asymptomatic, equal pulses bilaterally on exam. No syncope, lightheadedness, etc. Appreciate vascular surgery input and recommendation Asymptomatic and does not require any further treatment (4) CHF due to valvular disease: "Chronic CHF" with multiple hospitalizations this year. Records requested from [place]. Echo of the heart was done during her recent admission to the hospital. Cont current diuretic therapy, ,daily weights, strict I/Os and a low salt diet. No signs of fluid overload No more cardiac symptoms (5) DM type 2 (diabetes mellitus, type 2): At goal, covered with carb coverage and correction factor. 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 (9) Chronic anticoagulation: Cont Eliquis (10) DVT prophylaxis: Continue Eliquis PT and OT evaluation Likely discharge home in a day or 2 Admission and Anticipated Discharge Date Admission Date: October 13, 2020 Subjective 10/21/2020 The patient was seen and examined in telemetry unit She has been feeling much better and wants to go home Denies any significant symptoms No chest pain, palpitation, no abdominal pain, nausea no vomiting and no increasing shortness of breath 10/22/2020 The patient was seen and examined in telemetry unit She wants to go home and denies any symptoms at rest Her blood pressure seems to be reasonably controlled She has not had a bowel movement as of yet 10/23/2020 The patient was seen and examined in telemetry unit She has been doing much better and wants to go home Unfortunately her creatinine went up and she cannot go home today She was not very happy about it Review of Systems Review of Systems: All systems reviewed and are unremarkable except as noted below Neurologic: + generalized weakness Physical Exam Physical Exam: Lying in bed comfortably and anxiously Constitutional: average body habitus; not ill appearing Eyes: PERRL, conjunctivae normal, anicteric sclerae ENMT: external ear and nose normal, oropharynx normal Neck: trachea midline, no thyromegaly Respiratory: + labored breathing; no respiratory distress Auscultation: + diminished lung sounds and + crackles (Minimal crackles at the bases) Cardiovascular: Rate/Rhythm: regular rate and regular rhythm Heart Sounds: + murmur (2/6 ESM over precordium) Extremities: no edema Gastrointestinal (Abdomen): Inspection/Auscultation: normal bowel sounds; abdomen not distended Percussion/Palpation: abdomen soft; abdomen nontender Musculoskeletal: No acute arthritis in any joint Neurologic: Alert, awake and oriented x3. No focal sensory and motor deficit appreciated Psychiatric: A+Ox3, euthymic affect Lymphatic: no cervical or axillary lymphadenopathy Results & Data Results & Data ([facility]) Vital Signs (Past 12 Hours) Vital Signs Temp Pulse Pulse Resp BP BP Pulse Ox 10/23/20 16:22 53 L 10/23/20 16:04 36.7 C 53 L 18 131/63 97 10/23/20 11:23 36.9 C 58 L 22 123/62 96 10/23/20 07:36 36.7 C 50 L 16 167/62 H 96 Laboratory Results [facility] 10/23/20 06:50 Sodium 137 Potassium 3.8 Chloride 105 Carbon Dioxide 26 BUN 27 H Creatinine 1.99 H Glucose 194 H Calcium 8.2 L Medications Administered Current Inpatient Medications Acetaminophen (Acetaminophen 325 Mg Tab) 650 mg PO Q4H PRN PRN Reason: Pain or Fever Stop: 11/12/20 21:39 Last Admin: 10/23/20 13:00 Dose: 650 mg Documented by: Amlodipine Besylate (Amlodipine Besylate 5 Mg Tab) 10 mg PO QAM [facility] Stop: 11/21/20 04:59 Last Admin: 10/23/20 08:16 Dose: 10 mg Documented by: Apixaban (Apixaban 2.5 Mg Tab) 2.5 mg PO BID [facility] Stop: 11/14/20 20:59 Last Admin: 10/23/20 08:16 Dose: 2.5 mg Documented by: Atorvastatin Calcium (Atorvastatin 20 Mg Tab) 20 mg PO QAM [facility] Stop: 11/13/20 08:59 Last Admin: 10/23/20 08:17 Dose: 20 mg Documented by: Clonidine HCl (Clonidine Hcl 0.1 Mg Tab) 0.1 mg PO BID [facility] Stop: 11/21/20 20:59 Last Admin: 10/23/20 08:16 Dose: 0.1 mg Documented by: Dextrose (Dextrose 50% 50 Ml Syringe) 25 - 50 ml IV UD PRN; Protocol PRN Reason: Hypoglycemia Protocol Stop: 11/12/20 21:59 Furosemide (Furosemide 20 Mg Tab) 20 mg PO QAM [facility] Stop: 11/13/20 08:59 Last Admin: 10/23/20 08:17 Dose: 20 mg Documented by: Glucagon (Glucagon For Inj 1 Mg Vial) 1 mg IM UD PRN; Protocol PRN Reason: Hypoglycemia Protocol Stop: 11/12/20 21:59 Glucose (Glucose 40% Gel 15 Gm Tube) 15 - 30 gm PO UD PRN; Protocol PRN Reason: Hypoglycemia Protocol Stop: 11/12/20 21:59 Glucose (Glucose 10 Tabs/Tube) 4 - 8 tabs PO UD PRN; Protocol PRN Reason: Hypoglycemia Protocol Stop: 11/12/20 21:59 Hydralazine HCl (Hydralazine Tab 50 Mg Tab) 100 mg PO TID [facility] Stop: 11/21/20 04:59 Last Admin: 10/23/20 13:46 Dose: Not Given Documented by: Insulin Aspart (Insulin Aspart 100 Units/Ml 3 Ml Pen) 0 units SC ACHS [facility] Stop: 11/12/20 21:39 Last Admin: 10/23/20 16:51 Dose: Not Given Documented by: Isosorbide Dinitrate (Isosorbide Dinitrate 10 Mg Tab) 10 mg PO 0700,1200,1700 [facility] Stop: 11/12/20 21:39 Last Admin: 10/23/20 16:52 Dose: Not Given Documented by: Lisinopril (Lisinopril 5 Mg Tab) 5 mg PO [facility] Stop: 11/20/20 13:59 Last Admin: 10/21/20 15:02 Dose: 5 mg Documented by: Melatonin (Melatonin 3 Mg Tab) 3 mg PO HS PRN PRN Reason: Sleep Stop: 11/16/20 19:12 Last Admin: 10/22/20 20:45 Dose: 3 mg Documented by: Miscellaneous (Carbohydrates For Hypoglycemia ) 15 - 30 gm PO UD PRN PRN Reason: Hypoglycemia Treatment Stop: 11/12/20 21:59 Nitroglycerin (Nitroglycerin Sl 0.4 Mg/Tab Tab) 0.4 mg SL UD PRN PRN Reason: Chest Pain Stop: 11/12/20 21:39 Ondansetron HCl (Ondansetron Inj 2 Mg/Ml 2 Ml Vial) 4 mg IV Q6H PRN PRN Reason: Nausea Stop: 11/12/20 21:39 Pantoprazole Sodium (Pantoprazole 40 Mg Tab) 40 mg PO [facility] Stop: 11/14/20 08:59 Last Admin: 10/23/20 08:16 Dose: 40 mg Documented by: Potassium Chloride (Potassium Chloride Crtab 20 Meq Tabcr) 20 meq PO [facility] Stop: 11/13/20 08:59 Last Admin: 10/23/20 08:17 Dose: 20 meq Documented by: Spironolactone (Spironolactone 25 Mg Tab) 25 mg PO [facility] Stop: 11/19/20 10:09 Last Admin: 10/23/20 08:16 Dose: 25 mg Documented by: (1) CKD (chronic kidney disease), stage III Chronic kidney disease stage 3 subtype: stage 3b (GFR 30-44) Qualified Code(s): N18.32 - Chronic kidney disease, stage 3b
--- NOTE | 2020-10-23 17:23 | Nephrology Progress Note ---
Date of Service October 23, 2020 Assessment & Plan (1) Nephrotic syndrome: 3.5 gm proteinuria - nephrotic range - with resistant HTN and repeated admissions for volume OL, consistent with nephrotic syndrome, w/ SBP controlled today sometime sbu tstill labile. do note also that nitrates and hydralazine can both cause fluid retention; would like to lower clonidine as well ideally. secondary work up to date> renal duplex (poor study); 24 hr urine for catecholamines, serum catecholamines. hx of renal artery stenting. -goal is for ARB trial and more diuretic as well as MC antagonist - as below -f/u serologic w/u for nephrotic syndrome for AM labs -need to get outside records from [facility] for clinic - our hospitalist RN will get these to me (2) Resistant hypertension: likely from NS SBP goal is 130-140s if we can while closely monitoring ambulatory status -cont spironolactone 25 mg po daily -hold lasix for 10/24 AM and consider q48 hr dosing -cont K 20 mEq bid -plan to hold clonidine this evening and observe - with conduction issues noted on TTE and relative bradycardia would minimize/avoid this medication - monitor for rebound HTN in this complex pt -had one dose lisinopril 5 mg -hold parameter for hydralazine for sbp <160 -cont diet/other bp meds >>did explain to her I anticipate about 1-2 days more while we titrate medications (3) Pleural effusion: Moderate right pleural effusion noted on admission imaging and increased compared to imaging from prior admissions at least per report > still w/ BL pleural effusions improving/small R and trace L pl effusion on 10/20 CT (4) Hypokalemia: has been an issue intermittently during admission. bmp should be obtained daily. cont standing potassium supplements (5) CKD (chronic kidney disease), stage III: ckd 3B if not CKD 4 > baseline creatinine 1.6-1.8; has been better than baseline here though worsening w/ diuretics. Also with 3.5 gm proteinuria. hig h risk for ESRD; have not discussed this w/ pt yet in terms of her goals of care. 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; s/p stent; needs records, renal f/u at d/c Admission and Anticipated Discharge Date Admission Date: October 13, 2020 Subjective no interval events; denies change in chronic dyspnea, worsening ambulation; very anxious fo rhospital d/c and I again explained risks of rebound HTN /tachycardia w/ weaning clonidine Review of Systems Review of Systems: All systems reviewed & are unremarkable except as noted in Subjective Physical Exam Constitutional: well developed, well nourished, + frail appearing and cooperative; no acute distress Eyes: EOM intact bilaterally ENMT: Ears: no external ear abnormality Nose: no external nose abnormality Mouth: + dry oral mucous membranes Neck: no nuchal rigidity Respiratory: normal respiratory effort Auscultation: + diminished lung sounds and + crackles (bibasilar) Cardiovascular: Rate/Rhythm: regular rate, regular rhythm and + bradycardic Heart Sounds: + murmur Extremities: no edema Gastrointestinal (Abdomen): Inspection/Auscultation: normal bowel sounds; abdomen not distended Percussion/Palpation: abdomen soft; abdomen nontender Musculoskeletal: Extremities: strength 5/5 throughout Skin: no rashes, warm and dry Neurologic: car[place], fluent speech, no tremor Psychiatric: A+Ox3, euthymic affect Speech: normal rate/rhythm/volume of speech Results & Data ([facility]) Vital Signs (Past 12 Hours) Vital Signs Temp Pulse Pulse Resp BP BP Pulse Ox 10/23/20 16:22 53 L 10/23/20 16:04 36.7 C 53 L 18 131/63 97 10/23/20 11:23 36.9 C 58 L 22 123/62 96 10/23/20 07:36 36.7 C 50 L 16 167/62 H 96 Laboratory Results 10/22/20 06:38 10/23/20 06:50 (1) CKD (chronic kidney disease), stage III Chronic kidney disease stage 3 subtype: stage 3b (GFR 30-44) Qualified Code(s): N18.32 - Chronic kidney disease, stage 3b
[2020-10-23 19:58] LABS: Creatinine Urine Random 70.1 mg/dl; Protein Creatinine Ratio Urine 2.2 (0-0.2); Total Protein Urine Random 153.1 mg/dl (0-11.9)
[2020-10-23] MEDS: MELATONIN 3 MG TAB PO PRN (23:52)
[2020-10-24] MEDS: ISOSORBIDE DINITRATE 10 MG TAB PO SCH ×3 (06:09→16:49)
[2020-10-24 07:21] LABS: BUN Creatinine Ratio 15.3 (10-20); Calcium 8.6 mg/dl (8.5-10.1); Creatinine Clr Calc Pharmacy 14.6 ml/min; Est GFR (Non-African American) 20.7 ml/min; Potassium 4.5 mmol/L (3.5-5.1)
[2020-10-24] MEDS: INSULIN ASPART 100 UNITS/ML 3 ML PEN SC SCH ×3 (08:46→16:48)
[2020-10-24] MEDS: APIXABAN 2.5 MG TAB PO SCH (08:47)
[2020-10-24] MEDS: PANTOprazole 40 MG TAB PO SCH (08:47)
[2020-10-24] MEDS: hydrALAZINE TAB 50 MG TAB PO SCH ×3 (08:47→16:46)
[2020-10-24] MEDS: ATORVASTATIN 20 MG TAB PO SCH (08:48)
[2020-10-24] MEDS: SPIRONOLACTONE 25 MG TAB PO SCH (08:49)
[2020-10-24] MEDS: amLODIPine BESYLATE 5 MG TAB PO SCH (08:49)
[2020-10-24] MEDS: POTASSIUM CHLORIDE CRTAB 20 MEQ TABCR PO SCH (08:49)
--- NOTE | 2020-10-24 09:51 | Nephrology Progress Note ---
Date of Service October 24, 2020 Assessment & Plan (1) Nephrotic syndrome: 3.5 gm proteinuria - nephrotic range - with resistant HTN and repeated admissions for volume OL, consistent with nephrotic syndrome, w/ SBP controlled today sometimes but labile still. repeat prot/creat = 2.2 gm. do note also that nitrates and hydralazine can both cause fluid retention; would like to lower clonidine as well ideally. secondary work up to date> renal duplex (poor study); 24 hr urine for catecholamines, serum catecholamines. hx of renal artery stenting. -goal is for ARB trial and more diuretic as well as MC antagonist - as below -f/u serologic w/u for nephrotic syndrome for AM labs -I will get outside records from [facility] scanned into our system at [facility] (2) Resistant hypertension: likely from NS SBP goal is 130-140s if we can while closely monitoring ambulatory status -last clonidine dose 0.1 mg 10/23 AM >> no dramatic rebound HTN/tachycardia so far. plan to observe though with conduction issues noted on TTE and relative bradycardia would minimize/avoid this medication - monitor for rebound HTN in this complex pt a bit longer >> if by 1600, sbp is still <170 and HR <90 consistently ok for d/c home -had one dose lisinopril 5 mg and did ok; could try again as OP -cont diet/other bp meds care coordinate dw/ dr gama d/c recommendations (d/c summary updated) -continue spironolactone 25 mg daily -change amlodipine dose to 10 mg in evening not in morning -continue hydralazine 100 mg three times daily -continue isosorbide 10 mg three times daily -take lasix 20 mg on 10/25 AM and then on MWF -pt should NOT resume clonidine unless ordered by nephrology -no potassium supplements needed at d/c -multiple proteinuria serologies pending at discharge -f/u blood, urine tests and home bp log on 10/28 >> nephrology will order blood -f/u in [facility] in 4-6 wks in [place] any provider -needs low sodium (less than 2 gm daily) diet at discharge (3) Pleural effusion: Moderate right pleural effusion noted on admission imaging and increased compared to imaging from prior admissions at least per report > still w/ BL pleural effusions improving/small R and trace L pl effusion on 10/[address] CT (4) Hypokalemia: has been an issue intermittently during admission; improving now (5) CKD (chronic kidney disease), stage III: ckd 3B if not CKD 4 > baseline creatinine 1.6-1.8; has been better than baseline here though worsening w/ diuretics. Also with 2.2-3.5 gm proteinuria. high risk for ESRD; have not discussed this w/ pt yet in terms of her goals of care. 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; s/p stent; needs records, renal f/u at d/c Admission and Anticipated Discharge Date Admission Date: October 13, 2020 Subjective SBP 130-160s; no interval events; had no clonidine last evening Review of Systems Review of Systems: All systems reviewed & are unremarkable except as noted in Subjective Physical Exam Constitutional: well developed, well nourished, + frail appearing and cooperative; no acute distress Eyes: EOM intact bilaterally ENMT: Ears: no external ear abnormality Nose: no external nose abnormality Mouth: + dry oral mucous membranes Neck: no nuchal rigidity Respiratory: normal respiratory effort Auscultation: + diminished lung soun ds and + crackles (bibasilar) Cardiovascular: Rate/Rhythm: regular rate, regular rhythm and + bradycardic Heart Sounds: + murmur Extremities: no edema Gastrointestinal (Abdomen): Inspection/Auscultation: normal bowel sounds; abdomen not distended Percussion/Palpation: abdomen soft; abdomen nontender Musculoskeletal: Extremities: strength 5/5 throughout Skin: no rashes, warm and dry Psychiatric: A+Ox3, euthymic affect Speech: normal rate/rhythm/volume of speech Results & Data ([facility]) Vital Signs (Past 12 Hours) Vital Signs Temp Pulse Pulse Resp BP BP Pulse Ox 10/24/20 07:28 36.6 C 57 L 20 145/55 H 97 10/24/20 07:26 55 L 10/24/20 06:10 65 165/62 H 10/24/20 04:00 36.7 C 64 18 165/55 H 94 10/24/20 00:04 52 L 10/23/20 23:28 36.6 C 67 20 163/58 H 97 Laboratory Results 10/22/20 06:38 10/24/20 06:15 (1) CKD (chronic kidney disease), stage III Chronic kidney disease stage 3 subtype: stage 3b (GFR 30-44) Qualified Code(s): N18.32 - Chronic kidney disease, stage 3b
--- NOTE | 2020-10-24 11:49 | Hospitalist Progress Note ---
Date of Service October 24, 2020 Assessment & Plan (1) Resistant hypertension: BP somewhat improved but not close enough to goal at this time on increased clonidine 0.3mg BID. Appreciate Nephro recs. Clonidine has been decreased to 2.2 mg twice daily She has been on hydralazine 100 mg 3 times daily and Lisinopril 5 mg has been added Blood pressure remains reasonably stable Has to wait a day or 2 more as per nephrology before she can go home to make sure the blood pressure remains stable does not go up with decreasing dose of clonidine Creatinine slightly up likely secondary to use of lisinopril We will monitor PRP-creatinine is up Lisinopril has been discontinued and clonidine is on hold Plan to discontinue clonidine altogether and not to restart any time Blood pressure remains reasonably stable Will be discharged home this evening Abnormal movements Noted to have another episode at around 3 PM today Received intravenous Ativan 1 mg and there is controlled Has had this abnormal movements before without any definitive cause found Did not have any more abnormal movements Recommendations from the newspaper illustrator: d/c recommendations (d/c summary updated) -continue spironolactone 25 mg daily -change amlodipine dose to 10 mg in evening not in morning -continue hydralazine 100 mg three times daily -continue isosorbide 10 mg three times daily -take lasix 20 mg on 10/25 AM and then on MWF -pt should NOT resume clonidine unless ordered by nephrology -no potassium supplements needed at d/c -multiple proteinuria serologies pending at discharge -f/u blood, urine tests and home bp log on 10/28 >> nephrology will order blood -f/u in [facility] clinic in 4-6 wks in [facility] any provider -needs low sodium (less than 2 gm daily) diet at discharge (2) Rectal bleeding: Likely secondary to on chronic ischemic colitis. No CT evidence of significant bowel wall edema. Patient had gastroenterology input and endoscopy was deferred given lack of ongoing bleeding. Patient has been tolerating diet. Hemoglobin remains stable. Continue with Eliquis. (3) Subclavian arterial stenosis: Asymptomatic, equal pulses bilaterally on exam. No syncope, lightheadedness, etc. Appreciate vascular surgery input and recommendation Asymptomatic and does not require any further treatment (4) CHF due to valvular disease: "Chronic CHF" with multiple hospitalizations this year. Records requested from [place]. Echo of the heart was done during her recent admission to the hospital. Cont current diuretic therapy, ,daily weights, strict I/Os and a low salt diet. No signs of fluid overload No more cardiac symptoms Remains stable for the last few days (5) DM type 2 (diabetes mellitus, type 2): At goal, covered with carb coverage and correction factor. Blood sugar remains stable (6) CKD (chronic kidney disease), stage III: Has nephrotic syndrome Appreciate nephrology input and recommendation We will monitor PRP -creatinine has been going up Lisinopril is on hold-can be tried as an outpatient later on (7) Proteinuria: Nephrotic range of proteinuria We will control hypertension Management as per newspaper illustrator (8) Pleural effusion: Chronic and likely secondary to CHF Cont daily diuretics. (9) Chronic anticoagulation: Cont Eliquis (10) DVT prophylaxis: Continue Eliquis PT and OT evaluation Discharge home this evening Admission and Anticipated Discharge Date Admission Date: October 13, 2020 Subjective 10/21/2020 The patient was seen and examined in telemetry unit She has been feeling much better and wants to go home Denies any significant symptoms No chest pain, palpitation, no abdominal pain, nausea no vomiting and no increasing shortness of breath 10/22/2020 The patient was seen and examined in telemetry unit She wants to go home and denies any symptoms at rest Her blood pressure seems to be reasonably controlled She has not had a bowel movement as of yet 10/23/2020 The patient was seen and examined in telemetry unit She has been doing much better and wants to go home Unfortunately her creatinine went up and she cannot go home today She was not very happy about it 10/24/2020 The patient was seen and examined in telemetry unit She has been feeling a lot better and is very happy today that she will be leaving the hospital this evening She denies any symptoms except some weakness She did not have any more shaking episodes Review of Systems Review of Systems: All systems reviewed and are unremarkable except as noted below Neurologic: + generalized weakness Physical Exam Physical Exam: Lying in bed comfortably and anxious to go home Constitutional: average body habitus; not ill appearing Eyes: PERRL, conjunctivae normal, anicteric sclerae ENMT: external ear and nose normal, oropharynx normal Neck: trachea midline, no thyromegaly Respiratory: + labored breathing; no respiratory distress Auscultation: + diminished lung sounds and + crackles (Minimal crackles at the bases) Cardiovascular: Rate/Rhythm: regular rate and regular rhythm Heart Sounds: + murmur (2/6 ESM over precordium) Extremities: no edema Gastrointestinal (Abdomen): Inspection/Auscultation: normal bowel sounds; abdomen not distended Percussion/Palpation: abdomen soft; abdomen nontender Musculoskeletal: No acute arthritis in any of the joint Neurologic: Alert, awake and oriented x3. Generally weak but no focal sensory and motor deficit appreciated Psychiatric: A+Ox3, euthymic affect Lymphatic: no cervical or axillary lymphadenopathy Results & Data Results & Data ([facility]) Vital Signs (Past 12 Hours) Vital Signs Temp Pulse Pulse Resp BP BP Pulse Ox 10/24/20 11:42 36.8 C 65 20 167/58 H 96 10/24/20 07:28 36.6 C 57 L 20 145/55 H 97 10/24/20 07:26 55 L 10/24/20 06:10 65 165/62 H 10/24/20 04:00 36.7 C 64 18 165/55 H 94 10/24/20 00:04 52 L Laboratory Results [facility] 10/24/20 06:15 Sodium 136 Potassium 4.5 D Chloride 105 Carbon Dioxide 25 BUN 32 H Creatinine 2.07 H Glucose 135 H Calcium 8.6 Medications Administered Current Inpatient Medications Acetaminophen (Acetaminophen 325 Mg Tab) 650 mg PO Q4H PRN PRN Reason: Pain or Fever Stop: 11/12/20 21:39 Last Admin: 10/23/20 13:00 Dose: 650 mg Documented by: Amlodipine Besylate (Amlodipine Besylate 5 Mg Tab) [facility] Stop: 11/21/20 04:59 Last Admin: 10/24/20 08:49 Dose: 10 mg Documented by: Apixaban (Apixaban 2.5 Mg Tab) 2.5 mg PO BID [facility] Stop: 11/14/20 20:59 Last Admin: 10/24/20 08:47 Dose: 2.5 mg Documented by: Atorvastatin Calcium (Atorvastatin 20 Mg Tab) 20 mg PO QAM [facility] Stop: 11/13/20 08:59 Last Admin: 10/24/20 08:48 Dose: 20 mg Documented by: Dextrose (Dextrose 50% 50 Ml Syringe) 25 - 50 ml IV UD PRN; Protocol PRN Reason: Hypoglycemia Protocol Stop: 11/12/20 21:59 Furosemide (Furosemide 20 Mg Tab) 20 mg PO QAM [facility] Stop: 11/13/20 08:59 Last Admin: 10/23/20 08:17 Dose: 20 mg Documented by: Glucagon (Glucagon For Inj 1 Mg Vial) 1 mg IM UD PRN; Protocol PRN Reason: Hypoglycemia Protocol Stop: 11/12/20 21:59 Glucose (Glucose 40% Gel 15 Gm Tube) 15 - 30 gm PO UD PRN; Protocol PRN Reason: Hypoglycemia Protocol Stop: 11/12/20 21:59 Glucose (Glucose 10 Tabs/Tube) 4 - 8 tabs PO UD PRN; Protocol PRN Reason: Hypoglycemia Protocol Stop: 11/12/20 21:59 Hydralazine HCl (Hydralazine Tab 50 Mg Tab) 100 mg PO TID [facility] Stop: 11/21/20 04:59 Last Admin: 10/24/20 08:47 Dose: 100 mg Documented by: Insulin Aspart (Insulin Aspart 100 Units/Ml 3 Ml Pen) 0 units SC ACHS [facility] Stop: 11/12/20 21:39 Last Admin: 10/24/20 08:46 Dose: Not Given Documented by: Isosorbide Dinitrate (Isosorbide Dinitrate 10 Mg Tab) 10 mg PO 0700,1200,1700 [facility] Stop: 11/12/20 21:39 Last Admin: 10/24/20 06:09 Dose: 10 mg Documented by: Lisinopril (Lisinopril 5 Mg Tab) 5 mg PO QAM [facility] Stop: 11/20/20 13:59 Last Admin: 10/21/20 15:02 Dose: 5 mg Documented by: Melatonin (Melatonin 3 Mg Tab) 3 mg PO HS PRN PRN Reason: Sleep Stop: 11/16/20 19:12 Last Admin: 10/23/20 23:52 Dose: 3 mg Documented by: Miscellaneous (Carbohydrates For Hypoglycemia ) 15 - 30 gm PO UD PRN PRN Reason: Hypoglycemia Treatment Stop: 11/12/20 21:59 Nitroglycerin (Nitroglycerin Sl 0.4 Mg/Tab Tab) 0.4 mg SL UD PRN PRN Reason: Chest Pain Stop: 11/12/20 21:39 Ondansetron HCl (Ondansetron Inj 2 Mg/Ml 2 Ml Vial) 4 mg IV Q6H PRN PRN Reason: Nausea Stop: 11/12/20 21:39 Pantoprazole Sodium (Pantoprazole 40 Mg Tab) 40 mg PO [facility] Stop: 11/14/20 08:59 Last Admin: 10/24/20 08:47 Dose: 40 mg Documented by: Potassium Chloride (Potassium Chloride Crtab 20 Meq Tabcr) 20 meq PO [facility] Stop: 11/13/20 08:59 Last Admin: 10/24/20 08:49 Dose: 20 meq Documented by: Spironolactone (Spironolactone 25 Mg Tab) 25 mg PO [facility] Stop: 11/19/20 10:09 Last Admin: 10/24/20 08:49 Dose: 25 mg Documented by: (1) CKD (chronic kidney disease), stage III Chronic kidney disease stage 3 subtype: stage 3b (GFR 30-44) Qualified Code(s): N18.32 - Chronic kidney disease, stage 3b
[2020-10-24 14:42] LABS: Catech Norepinephrine 160 pg/mL; Catech Total, Plasma 160 pg/mL
--- NOTE | 2020-10-24 16:35 | Discharge Summary ---
Date of Service October 24, 2020 Admission HPI Per Admitting Provider DICTATED BY: Rolando Barry MD DATE OF ADMISSION: 10/13/2020 CHIEF COMPLAINT: GI bleed. HISTORY OF PRESENT ILLNESS: This is an 89-year-old female with past medical history significant for COPD, chronic bronchitis, heart failure due to valvular disease, hypertension, GERD without esophagitis, female stress incontinence, history of pulmonary embolism, insomnia, history of splenic infarct, history of CAD, history of hypertensive emergency, renal artery stenosis, likely chronic mesenteric ischemia, history of type 2 diabetes, presents with GI bleed. The patient was recently in the hospital for diastolic CHF exacerbation, received IV Lasix. At that time, she also has abnormal movements involving the extremities. EEG was normal. Head and neck MRI was okay. Seen by Neurology.Last admission her clonidine was increased to 0.2 mg b.i.d. for hypertensive urgency. She is on Eliquis for splenic infarct and pulmonary embolism in 1970s. Lives with her daughter, ambulates with a walker, comes in today because of GI bleed. The patient has 2-3 episodes of bright red blood per rectum as per daughter and she was brought in here. The patient is currently resting comfortably, has abnormal movements in all extremities, which seems to be chronic now. The patient denies any abdominal pain. She is nauseous, no vomiting, no chest pain, no shortness of breath, no cough, no fever, no chills. Normal bladder movements. No headache, no blurred vision, no earache, no runny nose, no sore throat. Tired. Feeling hungry. Hemodynamically stable. The patient is DNR/DNI as per the daughter and the daughter is okay for any scopes if needed. Admission Exam Per Admitting Provider GENERAL: The patient is old and frail, not in acute distress. Has abnormal movements of her extremities. VITAL SIGNS: Temperature 36.9, pulse 58, respiration rate 22, blood pressure 171/77, oxygen 96% on 2 liters. HEENT: Pupils equal, round and reactive to light. Oral mucosa moist. NECK: No JVD or neck masses. CARDIOVASCULAR: S1, S2 heard. Regular rate and rhythm. No murmur, no gallop. RESPIRATORY: Normal AP diameter. No accessory muscle use. No wheezing. No crackles. ABDOMEN: Soft, bowel sounds present, nontender, nondistended. CENTRAL NERVOUS SYSTEM: Alert and oriented. Speech clear. No facial droop. Has some abnormal movements of her extremities. Insight is good. EXTREMITIES: No edema, no erythema. Principal Diagnosis Resistant hypertension, rectal bleed-stopped, CHF due to valvular heart disease, CKD, type 2 diabetes, nephrotic range proteinuria Discharge Exam Constitutional average body habitus; not ill appearing Eyes PERRL, conjunctivae normal, anicteric sclerae ENMT external ear and nose normal, oropharynx normal Neck trachea midline, no thyromegaly Respiratory + labored breathing; no respiratory distress Auscultation: + diminished lung sounds and + crackles (Minimal crackles at the bases) Cardiovascular Rate/Rhythm: regular rate and regular rhythm Heart Sounds: + murmur (2/6 ESM over precordium) Extremities: no edema Gastrointestinal (Abdomen) Inspection/Auscultation: normal bowel sounds; abdomen not distended Percussion/Palpation: abdomen soft; abdomen nontender Psychiatric A+Ox3, euthymic affect Lymphatic no cervical or axillary lymphadenopathy Discharge Data Allergies Allergy/AdvReac Type Severity Reaction Status Date / Time Penicillins Allergy Intermediate Rash Verified 10/13/20 18:13 Quinolones Allergy Intermediate Rash Verified 10/13/20 18:13 aspirin AdvReac Mild burning in Verified 10/13/20 18:13 stomach Consultations 10/13/20 19:35 ED Decision to Admit Stat 10/14/20 08:00 Consult Gastroenterology Routine 10/18/20 15:54 Consult Nephrology Routine 10/19/20 23:16 Consult Vascular Surgery Routine Ordered Studies 10/13/20 17:56 CT abd pelvis wo con Stat 10/13/20 19:03 US gallbladder Stat 10/17/20 13:12 US arterial duplex UE BI Routine 10/20/20 16:56 CT chest diagnostic wo con Routine Hospital Course (1) Resistant hypertension: BP somewhat improved but not close enough to goal at this time on increased clonidine 0.3mg BID. Appreciate Nephro recs. Clonidine has been decreased to 2.2 mg twice daily She has been on hydralazine 100 mg 3 times daily and Lisinopril 5 mg has been added Blood pressure remains reasonably stable Has to wait a day or 2 more as per nephrology before she can go home to make sure the blood pressure remains stable does not go up with decreasing dose of clonidine Creatinine slightly up likely secondary to use of lisinopril We will monitor PRP-creatinine is up Lisinopril has been discontinued and clonidine is on hold Plan to discontinue clonidine altogether and not to restart any time Blood pressure remains reasonably stable Will be discharged home this evening Abnormal movements Noted to have another episode at around 3 PM today Received intravenous Ativan 1 mg and there is controlled Has had this abnormal movements before without any definitive cause found Did not have any more abnormal movements Recommendations from the contract agent: d/c recommendations (d/c summary updated) -continue spironolactone 25 mg daily -change amlodipine dose to 10 mg in evening not in morning -continue hydralazine 100 mg three times daily -continue isosorbide 10 mg three times daily -take lasix 20 mg on 10/25 AM and then on MWF -pt should NOT resume clonidine unless ordered by nephrology -no potassium supplements needed at d/c -multiple proteinuria serologies pending at discharge -f/u blood, urine tests and home bp log on 10/28 >> nephrology will order blood -f/u in [facility] in 4-6 wks in [facility] any provider -needs low sodium (less than 2 gm daily) diet at discharge (2) Rectal bleeding: Likely secondary to on chronic ischemic colitis. No CT evidence of significant bowel wall edema. Patient had gastroenterology input and endoscopy was deferred given lack of ongoing bleeding. Patient has been tolerating diet. Hemoglobin remains stable. Continue with Eliquis. (3) Subclavian arterial stenosis: Asymptomatic, equal pulses bilaterally on exam. No syncope, lightheadedness, etc. Appreciate vascular surgery input and recommendation Asymptomatic and does not require any further treatment (4) CHF due to valvular disease: "Chronic CHF" with multiple hospitalizations this year. Records requested from [place]. Echo of the heart was done during her recent admission to the hospital. Cont current diuretic therapy, ,daily weights, strict I/Os and a low salt diet. No signs of fluid overload No more cardiac symptoms Remains stable for the last few days (5) DM type 2 (diabetes mellitus, type 2): At goal, covered with carb coverage and correction factor. Blood sugar remains stable (6) CKD (chronic kidney disease), stage III: Has nephrotic syndrome Appreciate nephrology input and recommendation We will monitor PRP -creatinine has been going up Lisinopril is on hold-can be tried as an outpatient later on (7) Proteinuria: Nephrotic range of proteinuria We will control hypertension Management as per contract agent (8) Pleural effusion: Chronic and likely secondary to CHF Cont daily diuretics. (9) Chronic anticoagulation: Cont Eliquis (10) DVT prophylaxis: Continue Eliquis PT and OT evaluation Discharge home this evening Total Time Total Time Spent Total Time Spent (In Minutes): 45 minutes Total Time Includes: Examination of the Patient, Discharge Planning, Medication Reconciliation and 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 With Other Providers Discharge Plan Discharge Items Patient Disposition: Home - Home Health Services Reason For Visit: GI Bleed Discharge Diagnosis: Resistant hypertension, rectal bleed-stopped, CHF due to valvular heart disease, CKD, type 2 diabetes, nephrotic range proteinuria Condition on Discharge: Fair Activity: Resume your previous activity Non-emergency contact: Primary Care Provider Call non-emergency contact if: you have any medication questions and your symptoms worsen Follow-up/Referrals: Dakota Meléndez MD [Primary Care Provider] - ( Date & Time 10/31/2020 10:40 AM Provider Markel Melgoza MD Department Family Practice [facility] ) Diet: Carb Consistent or DM2, Heart Healthy and Low Sodium (2gm) Fluids: 1800ml (7 cups) Addtl Attending Provider Instructions: Please take extreme precaution to avoid falls Take your medications as advised Keep your appointments with the doctors Addtl Block Captain Provider Instructions: -continue spironolactone 25 mg daily -change amlodipine dose to 10 mg in evening not in morning -continue hydralazine 100 mg three times daily -continue isosorbide 10 mg three times daily -take lasix 20 mg on 10/25 AM and then on MWF -pt should NOT resume clonidine unless ordered by nephrology -no potassium supplements needed at d/c -multiple proteinuria serologies pending at discharge -f/u blood, urine tests and home bp log on 10/28 > nephrology will order bmp and urine testing -f/u in [facility] in 4-6 wks in [facility] any provider -needs low sodium (less than 2 gm daily) diet at discharge Pending Studies at Discharge: Yes Studies:: Serological test for nephrotic syndrome Stand-Alone Forms: My [employer], Smoking Cessation Medications and DC Order Prescriptions: New spironolactone 25 mg Tablet 25 mg PO QAM 30 Days Qty: 30 RF: 0 Continued amlodipine 10 mg Tablet 10 mg PO QAM RF: 0 atorvastatin 20 mg Tablet 20 mg PO QAM Qty: 30 RF: 1 hydralazine 100 mg tablet 100 mg PO TID Qty: 90 RF: 1 sennosides-docusate sodium [Senna with Docusate Sodium] 8.6-50 mg Tablet 1 tab-cap PO BID RF: 0 pantoprazole 40 mg Tablet,Delayed Release (Dr/Ec) 40 mg PO DAILYBB RF: 0 Eliquis 5 mg Tablet 2.5 mg PO BID Qty: 0 RF: 0 isosorbide dinitrate 10 mg Tablet 10 mg PO TID RF: 0 Changed furosemide [Lasix] 20 mg Tablet 20 mg PO UD Qty: 0 RF: 0 Discontinued potassium chloride [Klor-Con M20] 20 mEq tablet,ER particles/crystals 20 meq PO QAM RF: 0 clonidine HCl 0.1 mg Tablet 0.2 mg PO BID Qty: 120 RF: 0 Discharge Orders: Discharge Order (Routine); Ordered 10/24/20 Ordered By: Iraida Anderson Admission Data Admit Date/Time: 10/13/20 20:15 Attending Provider: Iraida Anderson Admit Provider: Rolando Barry Primary Care Provider: Dakota Meléndez Other Providers: Rolando Barry ; Jorge L Murray ; Angie Lomas ; Wang Angeles ; Marcie Calles ; Geo Max ; Antonio Blackburn Irphan E. ; Pramod Leonard ; Kristi Gregg ; Jewell Reis ; Regla Hamm ; Jasmine Bear ; Nataly Chapin ; [facility] ; Dayami Bee ; Bryan Alexander ; Ophelia Brandt ; Emy Obregon ; Kira Millard ; John Pro ; Samy Murguia ; Kaila Hood Other Interventions: Discharge Summary Assessment (RN) Last Done: 10/24/20 14:24
[2020-10-25 01:07] LABS: ANCA Screen Negative (Negative); Albumin 2.9 g/dL (3.8-4.8); Alpha 1 Globulin 0.3 g/dL (0.2-0.3); Alpha 2 Globulin 0.7 g/dL (0.5-0.9); Anti Nuclear Antibody Screen POSITIVE (NEGATIVE); Anti-dsDNA Recombinant <1 IU/mL; Beta-1-Globulin 0.3 g/dL (0.4-0.6); Beta-2-Globulin 0.2 g/dL (0.2-0.5); Beta-2-Microglobulin 6.82 mg/L (< OR = 2.51); Complement C3 86 mg/dL; Complement Total(CH50) >60 U/mL (31-60); Free Kappa 36.7 mg/L (3.3-19.4); Free Kappa/Lambda Ratio 1.24 (0.26-1.65); Free Lambda 29.5 mg/L (5.7-26.3); Gamma Globulin 0.6 g/dL (0.8-1.7); Monoclonal Protein Band 1 DNR g/dL (NONE DETECTED); Monoclonal Protein Band 2 DNR g/dL (NONE DETECTED); Monoclonal Protein Band 3 DNR g/dL (NONE DETECTED); Total Protein 5.1 g/dL (6.1-8.1)
[2020-10-27 12:17] LABS: ANA Pattern Nuclear, Speckled
== END 2020-10-24 18:02 | disposition home health service (06) | DRG 394 ==
LOC: ED 16:15 → 2S 20:15 → SUATTDRO 20:15 → 2S 21:13

== ENCOUNTER 2020-10-26 14:51 | Inpatient (IN) ==
[2020-10-26] MEDS ORDERED: amLODIPine BESYLATE 5 MG TAB PO ONE (15:18)
[2020-10-26] MEDS ORDERED: hydrALAZINE TAB 50 MG TAB PO STA (15:18)
[2020-10-26 15:28] LABS: Basophils # (auto) 0.04 K/uL (0-0.2); Basophils % (auto) 0.3 %; Eosinophils # (auto) 0.05 K/uL (0-0.5); Eosinophils % (auto) 0.4 %; Hematocrit (blood only) 37.2 % (37-47); Hemoglobin 12.1 g/dL (12.0-16.0); Immature Granulocytes # (auto) 0.11 K/uL (0.00-0.02); Immature Granulocytes % (auto) 0.9 %; Lymphocytes # (auto) 1.27 K/uL (1.2-3.4); Lymphocytes % (auto) 10.5 %; Mean Corpuscular Hemoglobin 23.8 pg (25-34); Mean Corpuscular Hgb Conc 32.5 g/dL (32-36); Mean Corpuscular Volume 73.1 fL (80-100); Mean Platelet Volume 8.7 fL (7.4-10.4); Monocytes # (auto) 0.96 K/uL (0.11-0.59); Neutrophils # (auto) 9.64 K/uL (1.4-6.5); Neutrophils % (auto) 79.9 %; Platelet Count 390 K/uL (130-400); RDW Standard Deviation 45.5 fL (36.4-46.3); Red Blood Count 5.09 M/uL (4.2-5.4); White Blood Count 12.07 K/uL (4.8-10.8)
--- NOTE | 2020-10-26 15:43 | Emergency Department Note ---
History of Present Illness General Chief Complaint: Chest Pain Stated Complaint: CHEST PAIN, HEADACHE, NAUSEA, AB PAIN Time Seen by Provider: 10/26/20 15:13 History of Present Illness Provider Complaint: chest pain Onset (ago): day(s) 1 Duration: constant Onset: during rest Pain Location: substernal and left chest Severity: moderate Quality: + aching Relieved By: + nothing Exacerbated By: + nothing Associated symptoms: + nausea and + vomiting; no dyspnea, no palpitations and no leg swelling Patient has been noncompliant with her medications stating she has not been taking them because she has been nauseous. Home Medications Medication Instructions Recorded Confirmed Type amlodipine 10 mg PO HS 03/31/19 10/26/20 History atorvastatin 20 mg PO QAM #30 tab 04/12/19 10/26/20 Rx hydralazine 100 mg PO TID #90 tab 04/12/19 10/26/20 Rx pantoprazole 40 mg PO DAILYBB 09/06/20 10/26/20 History sennosides-docusate sodium [Senna 1 tab-cap PO BID 09/06/20 10/26/20 History with Docusate Sodium] isosorbide dinitrate 10 mg PO TID 09/26/20 10/26/20 History furosemide [Lasix] 20 mg PO UD #0 tab 10/24/20 10/26/20 Rx spironolactone 25 mg PO QAM 30 Days #30 tab 10/24/20 10/26/20 Rx apixaban [Eliquis] 2.5 mg PO BID 10/26/20 10/26/20 History Allergies Allergy/AdvReac Type Severity Reaction Status Date / Time Penicillins Allergy Intermediate Rash Verified 10/26/20 16:38 Quinolones Allergy Intermediate Rash Verified 10/26/20 16:38 aspirin AdvReac Mild burning in Verified 10/26/20 16:38 stomach Past Med/Surg History Medical History 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 Coronary artery disease DM type 2 (diabetes mellitus, type 2) Do not resuscitate status Dyslipidemia Goals of care, counseling/discussion LBBB (left bundle branch block) Mild aortic stenosis Mild mitral stenosis Mitral regurgitation Nephrotic syndrome Subclavian arterial stenosis Surgical History H/O repair of left rotator cuff H/O varicose vein stripping History of appendectomy History of hysterectomy History of stent insertion of renal artery R renal artery; 2020 in [facility] Social History Smoking Status: Never smoker Tobacco Type: Cigarettes Hx Alcohol Use: No Hx Substance Use: No Preferred Language: Polish 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 Ability: Effective Twine Winder Required: No Beliefs That Will Affect Care: None marital status: / Current Living Situation: Family Current Living Situation Comment: lives w/ dtr Feels Safe at Home: Yes Assistive Devices: Walker Review of Systems A total of 10 systems reviewed and were otherwise negative Physical Exam Vital Signs Vital Signs - 24 hr 10/26/20 15:01 10/26/20 15:08 10/26/20 15:53 Temperature 37.1 C Temperature Source Oral Pulse Rate 102 H Respiratory Rate 18 18 Respiratory Effort / Characteristics Non-Labored Non-Labored Respiratory Depth Normal Normal Respiratory Pattern Regular Regular Blood Pressure 218/116 H Blood Pressure [Left Arm] 216/68 H Blood Pressure Mean 150 Blood Pressure Mean [Left Arm] 117 Blood Pressure Position Right Lateral Blood Pressure Position [Left Arm] Sitting Pulse Oximetry 97 96 Oxygen Delivery Method Room Air Room Air Sepsis Recent Fever Within 48 Hours No Sepsis New/Unexplained Change in Mental Status No Sepsis Action Taken by Nursing No Action Required 10/26/20 16:35 10/26/20 16:36 Temperature Temperature Source Pulse Rate Respiratory Rate 18 Respiratory Effort / Characteristics Non-Labored Respiratory Depth Normal Respiratory Pattern Regular Blood Pressure Blood Pressure [Left Arm] 190/74 H Blood Pressure Mean Blood Pressure Mean [Left Arm] 112 Blood Pressure Position Blood Pressure Position [Left Arm] Pulse Oximetry 96 96 Oxygen Delivery Method Room Air Room Air Sepsis Recent Fever Within 48 Hours Sepsis New/Unexplained Change in Mental Status Sepsis Action Taken by Nursing Physical Exam GENERAL: Patient hiccuping HENT: Exam performed. -Head: Normocephalic and atraumatic. -Right Ear: External ear normal. No mastoid tenderness. -Left Ear: External ear normal. No mastoid tenderness. -Mouth/Throat: The oropharynx is clear and moist. No trismus in the jaw. No dental abscesses or uvula swelling. No oropharyngeal exudate or tonsillar abscesses. EYES: Conjunctivae and EOM are normal. Pupils are equal, round, and reactive to light. Right eye exhibits no discharge. Left eye exhibits no discharge. No scleral icterus. NECK: Normal range of motion. Neck supple. No JVD present. No spinous process tenderness present. No carotid bruit present. No rigidity. No tracheal deviation and normal range of motion present. No Brudzinski's sign and no Kernig's sign noted. CV: Normal rate, regular rhythm, normal heart sounds and intact distal pulses. There is no peripheral edema. Palpable radial pulses bue. PULM/CHEST: Effort normal and breath sounds normal. No respiratory distress. No stridor. She has no wheezes. She has no rales. -Chest Wall: She exhibits no tenderness. ABD: The abdomen is soft. Bowel sounds are normal. She has no distension. No mass is present. There is no tenderness. There is no rebound, no guarding, no Prado's sign and no tenderness at McBurney's point. Rovsig negative MUSC/SKEL: Normal range of motion. There is no peripheral edema, tenderness or deformity. LYMPH: No cervical adenopathy. NEURO: She is alert and oriented to person, place, and time. She has normal strength. No cranial nerve deficit or sensory deficit. Coordination and gait normal. GCS eye subscore is 4. GCS verbal subscore is 5. GCS motor subscore is 6. Cerebellar tests wnl. SKIN: Skin is warm and dry. She is not diaphoretic. PSYCH: She has a normal mood and affect. Behavior is normal. Judgment and thought content normal. Course Course 151: The patient was evaluated in room B2. A complete history and physical exam was performed Cardiac monitoring: An order was placed for continuous cardiac monitoring. The monitor shows a rate of 100 with sinus rhythm EMR reviewed. Patient had a CT of her abdomen done on October 13, 2020, less than 2 weeks ago which showed possible cholelithiasis. Patient has subsequent gallbladder ultrasound which was negative for cholecystitis and showed gallbladder sludge. Patient is CT of the chest done 6 days ago which showed no pneumonia. 165: Vital signs stable. Labs show white blood cell count of 12.07. Creatinine of 1.7.Imaging is within normal limits. Patient's blood pressure is improved after she got her home hydralazine home amlodipine and 1 sublingual nitroglycerin. Patient will be admitted to the [facility] team Dr. Anderson will be down to see the patient Administered Medications Discontinued Medications Amlodipine Besylate (Amlodipine Besylate 5 Mg Tab) 10 mg PO NOW ONE Stop: 10/26/20 15:19 Last Admin: 10/26/20 15:27 Dose: 10 mg Documented by: [id number] Hydralazine HCl (Hydralazine Tab 50 Mg Tab) 100 mg PO NOW STA Stop: 10/26/20 15:19 Last Admin: 10/26/20 15:42 Dose: 100 mg Documented by: [id number] Lorazepam (Ativan) 0.25 mg in 0.5 mls @ 0.5 mls/min IV NOW STA Stop: 10/26/20 16:43 Last Admin: 10/26/20 16:48 Dose: 0.5 mls/min Documented by: [id number] Nitroglycerin (Nitroglycerin Sl 0.4 Mg/Tab Tab) 0.4 mg SL NOW STA Stop: 10/26/20 15:54 Last Admin: 10/26/20 15:57 Dose: Not Given Documented by: [id number] Nitroglycerin (Nitroglycerin Sl 0.4 Mg/Tab Tab) Confirm Administered Dose 0.4 mg .ROUTE .STK-MED ONE Stop: 10/26/20 15:55 Last Admin: 10/26/20 15:57 Dose: 0.4 mg Documented by: [id number] Ondansetron HCl (Ondansetron Inj 2 Mg/Ml 2 Ml Vial) 4 mg IV NOW STA Stop: 10/26/20 15:54 Last Admin: 10/26/20 15:57 Dose: Not Given Documented by: [id number] Ondansetron HCl (Ondansetron Inj 2 Mg/Ml 2 Ml Vial) Confirm Administered Dose 4 mg .ROUTE .STK-MED ONE Stop: 10/26/20 15:55 Last Admin: 10/26/20 15:57 Dose: 4 mg Documented by: [id number] Medical Decision Making Laboratory Data Result diagrams: 10/26/20 15:20 10/26/20 15:20 Labs: Lab Results 10/26/20 10/26/20 10/26/20 Range/Units 15:20 15:20 15:20 WBC 12.07 H (4.8-10.8) K/uL RBC 5.09 (4.2-5.4) M/uL Hgb 12.1 (12.0-16.0) g/dL Hct 37.2 (37-47) % MCV 73.1 L (80-100) fL MCH 23.8 L (25-34) pg MCHC 32.5 (32-36) g/dL RDW Std Deviation 45.5 (36.4-46.3) fL RDW Coeff of Dion 17.0 H (11.5-14.5) % Plt Count 390 (130-400) K/uL MPV 8.7 (7.4-10.4) fL Immature Gran % (Auto) 0.9 % Neut % (Auto) 79.9 % Lymph % (Auto) 10.5 % Antelope % (Auto) 8.0 % Eos % (Auto) 0.4 % Baso % (Auto) 0.3 % Neut # (Auto) 9.64 H (1.4-6.5) K/uL Lymph # (Auto) 1.27 (1.2-3.4) K/uL Antelope # (Auto) 0.96 H (0.11-0.59) K/uL Eos # (Auto) 0.05 (0-0.5) K/uL Baso # (Auto) 0.04 (0-0.2) K/uL Immature Gran # (Auto) 0.11 H (0.00-0.02) K/uL APTT 29.4 (21.0-31.0) Seconds PTT Ratio 1.1 Sodium 136 (136-145) mmol/L Potassium 3.9 (3.5-5.1) mmol/L Chloride 103 (98-107) mmol/L Carbon Dioxide 19 L (21-32) mmol/L Anion Gap 14.0 H (3-11) BUN 21 H (7-18) mg/dl Creatinine 1.70 H (0.6-1.2) mg/dl Est Cr Clr Drug Dosing 21.0 ml/min Est GFR ( Amer) 30.5 ml/min Est GFR (Non-Af Amer) 26.3 ml/min BUN/Creatinine Ratio 12.6 (10-20) Glucose 204 H (70-99) mg/dl Calcium 9.3 (8.5-10.1) mg/dl Troponin I 0.026 (0-0.045) ng/ml Lipase 62 L (73-393) U/L COVID-19 Eval Order 10/26/20 Range/Units 15:57 WBC (4.8-10.8) K/uL RBC (4.2-5.4) M/uL Hgb (12.0-16.0) g/dL Hct (37-47) % MCV (80-100) fL MCH (25-34) pg MCHC (32-36) g/dL RDW Std Deviation (36.4-46.3) fL RDW Coeff of Dion (11.5-14.5) % Plt Count (130-400) K/uL MPV (7.4-10.4) fL Immature Gran % (Auto) % Neut % (Auto) % Lymph % (Auto) % Antelope % (Auto) % Eos % (Auto) % Baso % (Auto) % Neut # (Auto) (1.4-6.5) K/uL Lymph # (Auto) (1.2-3.4) K/uL Antelope # (Auto) (0.11-0.59) K/uL Eos # (Auto) (0-0.5) K/uL Baso # (Auto) (0-0.2) K/uL Immature Gran # (Auto) (0.00-0.02) K/uL APTT (21.0-31.0) Seconds PTT Ratio Sodium (136-145) mmol/L Potassium (3.5-5.1) mmol/L Chloride (98-107) mmol/L Carbon Dioxide (21-32) mmol/L Anion Gap (3-11) BUN (7-18) mg/dl Creatinine (0.6-1.2) mg/dl Est Cr Clr Drug Dosing ml/min Est GFR ( Amer) ml/min Est GFR (Non-Af Amer) ml/min BUN/Creatinine Ratio (10-20) Glucose (70-99) mg/dl Calcium (8.5-10.1) mg/dl Troponin I (0-0.045) ng/ml Lipase (73-393) U/L COVID-19 Eval Order Covid19 at [facility] Imaging Data Chest x-ray: Radiologist's impression: SINGLE VIEW CHEST CLINICAL HISTORY: Atypical chest pain. FINDINGS: An AP, portable, upright chest radiograph is compared to study dated 10/19/2020 and correlated with chest CT dated 10/20/2020. The examination is degraded by portable technique and patient rotation. The heart is enlarged noting atherosclerotic calcification of the thoracic aorta. The pulmonary vasculature is noncongested. Chronic interstitial thickening is similar to previous. Enlargement of the central pulmonary arteries suggests pulmonary artery hypertension. There are low lung volumes with bibasilar sca rring/atelectasis. No airspace consolidation or large pleural effusion is identified. No pneumothorax is seen. The skeletal structures are osteopenic. The bony thorax is grossly intact. IMPRESSION: Cardiomegaly with no acute cardiopulmonary abnormality. ACT 112: Negative or not required by law. Electronically signed by: Abran Chu M.D. 10/26/2020 4:45 PM Dictated: 10/26/20 1644Transcribed: 10/26/[address] scan - head: Radiologist's impression: CT SCAN OF THE BRAIN WITHOUT IV CONTRAST CLINICAL HISTORY: Headache. COMPARISON STUDY: CT of the brain dated 02/10/2016. TECHNIQUE: Unenhanced axial CT scan of the brain is performed from the vertex to the skull base. A dose lowering technique was utilized adhering to the principles of ALARA. CT DOSE: 537.48 mGy.cm FINDINGS: Brain parenchyma: There are age-related involutional changes noting mild to moderate subcortical and periventricular microangiopathic change. There is no hemorrhage, mass effect, or evidence of acute territorial ischemia by CT criteria. 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 Duenas-white matter differentiation is preserved. No extra-axial fluid collection is seen. Ventricles, sulci, cisterns: Prominent secondary to involutional change. Intracranial vasculature: There is atherosclerotic calcification of the cavernous carotid and vertebral arteries. Calvarium: Unremarkable. Sinuses and mastoids: The visualized paranasal sinuses are clear. The mastoid air cells are well pneumatized. Orbits: The bony orbits are grossly intact. There are bilateral ocular lens implants. IMPRESSION: There is no hemorrhage, mass effect, or evidence of acute territorial ischemia by CT criteria. ACT 112: Negative or not required by law. Electronically signed by: Abran Chu M.D. 10/26/2020 4:21 PM Dictated: 10/26/20 1618Transcribed: 10/26/20 1618 ECG Data Indication: chest pain Rate (beats per minute): 121 Rhythm: sinus tachycardia Findings: + LBBB; no ST depression and no ST elevation Additional Comments: HI 122 QRS 142 QTC 553 Sgarbosa negative. No significant change from the EKG done on September 26, 2020. [facility] Narrative 1513: The patient was evaluated in room B2. A complete history and physical exam was performed Cardiac monitoring: An order was placed for continuous cardiac monitoring. The monitor shows a rate of 100 with sinus rhythm EMR reviewed. Patient had a CT of her abdomen done on October 13, 2020, less than 2 weeks ago which showed possible cholelithiasis. Patient has subsequent gallbladder ultrasound which was negative for cholecystitis and showed gallbladder sludge. Patient is CT of the chest done 6 days ago which showed no pneumonia. 1656: Vital signs stable. Labs show white blood cell count of 12.07. Creatinine of 1.7.Imaging is within normal limits. Patient's blood pressure is improved after she got her home hydralazine home amlodipine and 1 sublingual nitroglycerin. Patient will be admitted to the [facility] hospitalist team Dr. Anderson will be down to see the patient Impression & Plan Chest pain, Hypertensive urgency, Noncompliance with medication regimen Discharge Plan Visit Data Chief Complaint: Chest Pain Stated Complaint: CHEST PAIN, HEADACHE, NAUSEA, AB PAIN ED Provider: Rodrigue Paez Discharge Problem: Chest pain, Hypertensive urgency, Noncompliance with medication regimen Patient Disposition: Being Evaluated by Hospitalist Forms Stand Alone Forms: [facility] Prescriptions Prescriptions: No Action amlodipine 10 mg Tablet 10 mg PO HS RF: 0 atorvastatin 20 mg Tablet 20 mg PO QAM Qty: 30 RF: 1 hydralazine 100 mg tablet 100 mg PO TID Qty: 90 RF: 1 sennosides-docusate sodium [Senna with Docusate Sodium] 8.6-50 mg Tablet 1 tab-cap PO BID RF: 0 pantoprazole 40 mg Tablet,Delayed Release (Dr/Ec) 40 mg PO DAILYBB RF: 0 Eliquis 2.5 mg Tablet 2.5 mg PO BID RF: 0 isosorbide dinitrate 10 mg Tablet 10 mg PO TID RF: 0 spironolactone 25 mg Tablet 25 mg PO QAM 30 Days Qty: 30 RF: 0 furosemide [Lasix] 20 mg Tablet 20 mg PO UD Qty: 0 RF: 0 Referrals Referrals: Dakota Meléndez MD [Primary Care Provider] - Discharge Problem: Chest pain Qualifiers: Chest pain type: unspecified Qualified Code(s): R07.9 - Chest pain, unspecified
[2020-10-26] MEDS ORDERED: NITROGLYCERIN SL 0.4 MG/TAB TAB SL STA (15:53)
[2020-10-26] MEDS ORDERED: ONDANSETRON INJ 2 MG/ML 2 ML VIAL IV STA (15:53)
[2020-10-26] MEDS ORDERED: ONDANSETRON INJ 2 MG/ML 2 ML VIAL ONE (15:54)
[2020-10-26] MEDS ORDERED: NITROGLYCERIN SL 0.4 MG/TAB TAB ONE (15:54)
[2020-10-26 15:58] LABS: BUN Creatinine Ratio 12.6 (10-20); Calcium 9.3 mg/dl (8.5-10.1); Est GFR (African American) 30.5 ml/min; Est GFR (Non-African American) 26.3 ml/min; Potassium 3.9 mmol/L (3.5-5.1)
[2020-10-26 16:02] LABS: Troponin I 0.026 ng/ml (0-0.045)
[2020-10-26 16:07] LABS: Partial Thromboplastin Ratio 1.1; Partial Thromboplastin Time 29.4 Seconds (21.0-31.0)
--- NOTE | 2020-10-26 16:23 | CT Scan Report ---
CT SCAN OF THE BRAIN WITHOUT IV CONTRAST CLINICAL HISTORY: Headache. COMPARISON STUDY: CT of the brain dated 02/10/2016. TECHNIQUE: Unenhanced axial CT scan of the brain is performed from the vertex to the skull base. A do se lowering technique was utilized adhering to the principles of ALARA. CT DOSE: 537.48 mGy.cm FINDINGS: Brain parenchyma: There are age-related involutional changes noting mild to moderate subcortical and periventricular microangiopathic change. There is no hemorrhage, mass effect, or evidence of acute t erritorial ischemia by CT criteria. A chronic lacunar infarct is noted in the left cerebellar hemisph ere. Duenas-white matter differentiation is preserved. No extra-axial fluid collection is seen. Ventricles, sulci, cisterns: Prominent secondary to involutional change. Intracranial vasculature: There is atherosclerotic calcification of the cavernous carotid and vertebr al arteries. Calvarium: Unremarkable. Sinuses and mastoids: The visualized paranasal sinuses are clear. The mastoid air cells are well pneu matized. Orbits: The bony orbits are grossly intact. There are bilateral ocular lens implants. IMPRESSION: There is no hemorrhage, mass effect, or evidence of acute territorial ischemia by CT angelika cosme. ACT 112: Negative or not required by law. Electronically signed by: Abran Chu M.D. 10/26/2020 4:21 PM
[2020-10-26] MEDS ORDERED: LORazepam 0.25 MG/0.5 ML VIAL IV STA (16:42)
--- NOTE | 2020-10-26 16:47 | XRay Report ---
SINGLE VIEW CHEST CLINICAL HISTORY: Atypical chest pain. FINDINGS: An AP, portable, upright chest radiograph is compared to study dated 10/19/2020 and correlat ed with chest CT dated 10/20/2020. The examination is degraded by portable technique and patient rotat ion. The heart is enlarged noting atherosclerotic calcification of the thoracic aorta. The pulmonary vasculature is noncongested. Chronic interstitial thickening is similar to previous. Enlargement of t he central pulmonary arteries suggests pulmonary artery hypertension. There are low lung volumes with bibasilar scarring/atelectasis. No airspace consolidation or large pleural effusion is identified. N o pneumothorax is seen. The skeletal structures are osteopenic. The bony thorax is grossly intact. IMPRESSION: Cardiomegaly with no acute cardiopulmonary abnormality. ACT 112: Negative or not required by law. Electronically signed by: Abran Chu M.D. 10/26/2020 4:45 PM
[2020-10-26] MEDS ORDERED: KETOROLAC TROMETHAMINE 15 MG/ML VIAL IV STA (16:48)
[2020-10-26] MEDS ORDERED: LORazepam 0.5 MG/1 ML VIAL IV STA (17:20)
--- NOTE | 2020-10-26 17:46 | History & Physical Report ---
Date of Service October 26, 2020 Assessment & Plan (1) Chest pain: Presented with chest pain No significant EKG changes and troponin remains negative We will get serial troponins Received sublingual nitro and the pain is controlled With pain may be secondary to hypertensive urgency Will increase isosorbide to 20 mg 3 times daily for chest pain and also to control blood pressure Goals of care Has had prior palliative care evaluation Will ask for reevaluation by the palliative care Will likely to go to a facility for appropriate family day care provider administer medications right time (2) Hypertensive urgency: 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 Did not take her medications this morning Blood pressure was noted to be very high at presentation with systolic of 218 and diastolic 116 We will continue her usual medications and increase isosorbide to 20 mg 3 times daily (3) Noncompliance with medication regimen: Has been taking her medications the way she is supposed to be (4) Nephrotic syndrome: Has nephrotic range proteinuria Kidney function seems to be little better (5) CKD (chronic kidney disease), stage III: As above (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: Chest x-ray is not showing any pulmonary vascular congestion We will continue with her current dose of Lasix and spironolactone (7) DM type 2 (diabetes mellitus, type 2): We will put her on sliding scale insulin coverage (8) Chronic anticoagulation: Has been on Eliquis likely secondary to valvular heart disease We will continue Eliquis Has left subclavian stenosis Not for any further intervention (9) Abnormal involuntary movements: She has been ongoing involuntary movement involving whole of the body and extremities She has had evaluation by neurologist and has had relevant investigations without any definite cause for that Benzodiazepine helps the abnormal movement We will give Ativan 0.5 mg IV Discussed with the daughter in detail and will plan to give sublingual Ativan as needed as an outpatient CODE STATUS DNR/DNI History of Present Illness Chief Complaint: Chest pain, abdominal discomfort, increasing abnormal movements of the body Primary Care Provider: Dakota Meléndez MD Is an 89-year-old female with significant past medical history including resistant hypertension, nephrotic syndrome with CKD stage III, CAD, valvular heart disease, CHF, type 2 diabetes, hypertension, hyperlipidemia and occasional abnormal movements of the body without any significant cause has been complaining of chest pain since this afternoon associated with epigastric discomfort, left lateral chest pain and increasing abnormal movements of the body. Apparently she did not take her morning pills this morning and complaining of abdominal discomfort and nausea but no vomiting associated with it. For the last day or 2 she has been generally weak and has not been wanting to eat or drink that much. The history was taken from the daughter and the patient did not have any cough, shortness of breath, fever and/or chills, any problem with urine and bowel habit. She was discharged home this Tuesday with stable medical condition and this has been her for her fifth admission within the last 4 to 6 weeks. She has noted to have very high blood pressure on arrival in the emergency room at 218/116 and she was given the morning doses of medications and also nitro glycerin tablet which improved the blood pressure to some extent. She was admitted to telemetry unit for continuation of care. Allergies Allergy/AdvReac Type Severity Reaction Status Date / Time Penicillins Allergy Intermediate Rash Verified 10/26/20 16:38 Quinolones Allergy Intermediate Rash Verified 10/26/20 16:38 aspirin AdvReac Mild burning in Verified 10/26/20 16:38 stomach Home Medications Medication Instructions Recorded Confirmed Type amlodipine 10 mg PO HS 03/31/19 10/26/20 History atorvastatin 20 mg PO QAM #30 tab 04/12/19 10/26/20 Rx hydralazine 100 mg PO TID #90 tab 04/12/19 10/26/20 Rx pantoprazole 40 mg PO DAILYBB 09/06/20 10/26/20 History sennosides-docusate sodium [Senna 1 tab-cap PO BID 09/06/20 10/26/20 History with Docusate Sodium] isosorbide dinitrate 10 mg PO TID 09/26/20 10/26/20 History furosemide [Lasix] 20 mg PO UD #0 tab 10/24/20 10/26/20 Rx spironolactone 25 mg PO QAM 30 Days #30 tab 10/24/20 10/26/20 Rx apixaban [Eliquis] 2.5 mg PO BID 10/26/20 10/26/20 History Past Med/Surg History Medical History 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 Coronary artery disease DM type 2 (diabetes mellitus, type 2) Do not resuscitate status Dyslipidemia Goals of care, counseling/discussion LBBB (left bundle branch block) Mild aortic stenosis Mild mitral stenosis Mitral regurgitation Nephrotic syndrome Subclavian arterial stenosis Surgical History H/O repair of left rotator cuff H/O varicose vein stripping History of appendectomy History of hysterectomy History of stent insertion of renal artery R renal artery; 2020 in [facility] Social History Smoking Status: Never smoker Tobacco Type: Cigarettes Hx Alcohol Use: No Hx Substance Use: No Preferred Language: Emirati 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 Ability: Effective Hedis Nurse Required: No Beliefs That Will Affect Care: None marital status: / Current Living Situation: Family Current Living Situation Comment: lives w/ dtr Feels Safe at Home: Yes Assistive Devices: Walker Review of Systems Review of Systems: All systems reviewed & are unremarkable except as noted in HPI & below Physical Exam Physical Exam: Lying in bed with distress secondary to abnormal movements of the body and limbs Constitutional: + acute distress (Abnormal movements of the body and limbs), + ill appearing and + thin Eyes: PERRL, conjunctivae normal, anicteric sclerae ENMT: external ear and nose normal, oropharynx normal Neck: trachea midline, no thyromegaly Respiratory: no respiratory distress Auscultation: lungs clear to auscultation bilaterally; no crackles Cardiovascular: Rate/Rhythm: + irregularly irregular Heart Sounds: + murmur (2/6 ESM over precordium) Extremities: no edema Gastrointestinal (Abdomen): Inspection/Auscultation: normal bowel sounds; abdomen not distended Percussion/Palpation: abdomen soft; abdomen nontender Musculoskeletal: No acute arthritis in any joint Neurologic: Alert and awake, pleasantly confused. Moving all limbs. Lymphatic: no cervical or axillary lymphadenopathy Results & Data Results & Data ([facility]) Vital Signs (Past 12 Hours) Vital Signs Temp Pulse Resp BP BP Pulse Ox 10/26/20 16:36 18 190/74 H 96 10/26/20 16:35 96 10/26/20 15:53 18 216/68 H 96 10/26/20 15:08 37.1 C 102 H 18 218/116 H 97 Laboratory Results Short CBC 10/26/20 Range/Units 15:20 WBC 12.07 H (4.8-10.8) K/uL Hgb 12.1 (12.0-16.0) g/dL Hct 37.2 (37-47) % Plt Count 390 (130-400) K/uL BMP 10/26/20 15:20 Sodium 136 Potassium 3.9 Chloride 103 Carbon Dioxide 19 L BUN 21 H Creatinine 1.70 H Glucose 204 H Calcium 9.3 Cardiac Enzymes 10/26/20 Range/Units 15:20 Troponin I 0.026 (0-0.045) ng/ml Medications Administered Current Inpatient Medications Insulin Aspart (Insulin Aspart 100 Units/Ml 3 Ml Pen) 0 units SC ACHS [facility] Stop: 11/25/20 20:59 Code Status & VTE Plan VTE Prophylaxis Plan VTE Prophylaxis will be ordered: Yes (1) Chest pain Chest pain type: unspecified Qualified Code(s): R07.9 - Chest pain, unspecified (2) CKD (chronic kidney disease), stage III Chronic kidney disease stage 3 subtype: stage 3b (GFR 30-44) Qualified Code(s): N18.32 - Chronic kidney disease, stage 3b
[2020-10-26] MEDS ORDERED: CARBOHYDRATES FOR HYPOGLYCEMIA PO PRN (19:15)
[2020-10-26] MEDS ORDERED: GLUCOSE 10 TABS/TUBE PO PRN (19:15)
[2020-10-26] MEDS ORDERED: GLUCAGON FOR INJ 1 MG VIAL IM PRN (19:15)
[2020-10-26] MEDS ORDERED: DEXTROSE 50% 50 ML SYRINGE IV PRN (19:15)
[2020-10-26] MEDS ORDERED: GLUCOSE 40% GEL 15 GM TUBE PO PRN (19:15)
[2020-10-26] MEDS: hydrALAZINE TAB 50 MG TAB PO SCH (20:13)
[2020-10-26] MEDS: DOCUSATE SODIUM/SENNA 50/8.6MG TAB PO SCH (20:14)
[2020-10-26] MEDS: APIXABAN 2.5 MG TAB PO SCH (20:14)
[2020-10-26] MEDS: ISOSORBIDE DINITRATE 20 MG TAB PO SCH (20:15)
[2020-10-26] MEDS: INSULIN ASPART 100 UNITS/ML 3 ML PEN SC SCH (20:23)
[2020-10-26] MEDS: LORazepam 1 MG TAB SL PRN (23:02)
[2020-10-26] MEDS ORDERED: KETOROLAC TROMETHAMINE 15 MG/ML VIAL IV ONE (23:09)
[2020-10-26] MEDS ORDERED: PROMETHAZINE HCL 6.25 MG in SODIUM CHLORIDE 0.9% 50 ML IV STA (23:10)
[2020-10-27 03:28] LABS: Basophils # (auto) 0.01 K/uL (0-0.2); Basophils % (auto) 0.1 %; Hematocrit (blood only) 31.6 % (37-47); Hemoglobin 10.4 g/dL (12.0-16.0); Immature Granulocytes # (auto) 0.09 K/uL (0.00-0.02); Immature Granulocytes % (auto) 0.6 %; Lymphocytes % (auto) 5.7 %; Mean Corpuscular Hgb Conc 32.9 g/dL (32-36); Mean Corpuscular Volume 72.8 fL (80-100); Mean Platelet Volume 8.6 fL (7.4-10.4); Monocytes # (auto) 0.36 K/uL (0.11-0.59); Monocytes % (auto) 2.5 %; Neutrophils # (auto) 12.86 K/uL (1.4-6.5); Neutrophils % (auto) 91.1 %; Platelet Count 422 K/uL (130-400); RDW Coefficient of Variation 17.2 % (11.5-14.5); RDW Standard Deviation 45.9 fL (36.4-46.3); Red Blood Count 4.34 M/uL (4.2-5.4); White Blood Count 14.12 K/uL (4.8-10.8)
[2020-10-27 03:55] LABS: BUN Creatinine Ratio 15.1 (10-20); Calcium 9.5 mg/dl (8.5-10.1); Creatinine Clr Calc Pharmacy 19.3 ml/min; Potassium 4.2 mmol/L (3.5-5.1)
[2020-10-27] MEDS: PANTOprazole 40 MG TAB PO SCH (06:10)
[2020-10-27] MEDS: APIXABAN 2.5 MG TAB PO SCH ×2 (07:29→20:15)
[2020-10-27] MEDS: ISOSORBIDE DINITRATE 20 MG TAB PO SCH ×3 (07:32→17:32)
[2020-10-27] MEDS: PROMETHAZINE HCL 25 MG in SODIUM CHLORIDE 0.9% 50 ML IV PRN ×2 (08:29→15:51)
[2020-10-27] MEDS: FUROSEMIDE 20 MG TAB PO SCH (08:29)
[2020-10-27] MEDS: hydrALAZINE TAB 50 MG TAB PO SCH ×3 (08:29→20:22)
[2020-10-27] MEDS: DOCUSATE SODIUM/SENNA 50/8.6MG TAB PO SCH ×2 (08:30→20:24)
[2020-10-27] MEDS: ATORVASTATIN 20 MG TAB PO SCH (08:30)
[2020-10-27] MEDS: SPIRONOLACTONE 25 MG TAB PO SCH (08:30)
[2020-10-27] MEDS: INSULIN ASPART 100 UNITS/ML 3 ML PEN SC SCH ×4 (08:30→20:25)
--- NOTE | 2020-10-27 10:26 | Palliative Care Consultation ---
Date of Consultation October 27, 2020 Assessment & Plan (1) Palliative care encounter: Lety is an 89 year old female who presented to the [facility] with chest pain and epigastric discomfort. An additional significant past medical history includes hypertension, nephrotic syndrome with CKD stage III, CAD, previous splenic infarction, valvular heart disease, CHF, type 2 diabetes, hypertension, and hyperlipidemia. She was discharged home this Tuesday, but unfortunately this has been her 5th admission over the past 6 weeks. Palliative Care was consulted back in April 2020 and the patient was transitioned to Hospice in [place], but was discharged from hospice for prolonged continuation of care. This admission, her EKG remains unchanged and her serial troponins were negative. She was hypertensive on arrival 218/116 and was provided with treatment. Her hemoglobin level has dropped from 12.0 to 10.2 this admission. Historically, on previous admission in 2018 she did have a splenic infarct, which could be contributing to her presentation. Palliative Medicine was reconsulted to discuss goals of care. I was able to speak to the patient with conversational Macedonian. She described having left lateral chest pain, without radiation. She denied any shortness of breath. She reports being happy living at home with her daughter. I was able to talk to Luisa Garcia, the patients daughter on the phone. She expressed that her mother was involved in Hospice when she was in [facility], but she was discharged after 6 months due to prolonged enrollment. She stated that they are staying in [place] now, not planning to go back to [place] at this time. She is very interested in re-enrolling in Hospice here in [place]. She said that her mother does have days that she is really interactive and able to converse well. She also mentioned that she has other days where she is relatively sleepy. She would like to continue care, but would like to have hospice on board when she is discharged. Hospice diagnosis could include: CHF, or severe protein caloric malnourishment. She does not want overly aggressive measures taken with her mother at this time and wants to avoid future hospitalizations. She recognizes that her mother has now been in the hospital more than out of the hospital over the past few months. She would like additional support at home and would be interested in private patient care manager lists which was discussed with Niki Ott in case management. (2) Weakness: (3) Severe protein-calorie malnutrition: (4) CHF exacerbation: Heart failure type: unspecified Qualified Code(s): I50.9 - Heart failure, unspecified (5) Chest pain: Patient complaining of left lateral chest pain. Could be from her spleen. Ordered Tylenol and Lidoderm patch. If no improvement, will order Morphine. History of Present Illness Reason for Consultation: Goals of care Requesting Physician: Dr. Anderson Attending Physician: Iraida Anderson MD History of Present Illness Lety is an 89 year old female who presented to the [facility] with chest pain and epigastric discomfort. An additional significant past medical history includes hypertension, nephrotic syndrome with CKD stage III, CAD, previous splenic infarction, valvular heart disease, CHF, type 2 diabetes, hypertension, and hyperlipidemia. She was discharged home this Tuesday, but unfortunately this has been her 5th admission over the past 6 weeks. Palliative Care was consulted back in April 2020 and the patient was transitioned to Hospice in [place], but was discharged from hospice for prolonged continuation of care. This admission, her EKG remains unchanged and her serial troponins were negative. She was hypertensive on arrival 218/116 and was provided with treatment. Her hemoglobin level has dropped from 12.0 to 10.2 this admission. Historically, on previous admission in 2018 she did have a splenic infarct, which could be contributing to her presentation. Palliative Medicine was reconsulted to discuss goals of care. Please see A/P for further details. Thanks for re-involving Palliative Medicine with this patient. Allergies Allergy/AdvReac Type Severity Reaction Status Date / Time Penicillins Allergy Intermediate Rash Verified 10/26/20 16:38 Quinolones Allergy Intermediate Rash Verified 10/26/20 16:38 aspirin AdvReac Mild burning in Verified 10/26/20 16:38 stomach Home Medications Medication Instructions Recorded Confirmed Type amlodipine 10 mg PO HS 03/31/19 10/26/20 History atorvastatin 20 mg PO QAM #30 tab 04/12/19 10/26/20 Rx hydralazine 100 mg PO TID #90 tab 04/12/19 10/26/20 Rx pantoprazole 40 mg PO DAILYBB 09/06/20 10/26/20 History sennosides-docusate sodium [Senna 1 tab-cap PO BID 09/06/20 10/26/20 History with Docusate Sodium] isosorbide dinitrate 10 mg PO TID 09/26/20 10/26/20 History furosemide [Lasix] 20 mg PO UD #0 tab 10/24/20 10/26/20 Rx spironolactone 25 mg PO QAM 30 Days #30 tab 10/24/20 10/26/20 Rx apixaban [Eliquis] 2.5 mg PO BID 10/26/20 10/26/20 History Patient History Medical History (Updated 10/27/20 @ 12:19 by DEVIN Person) Atrophy of left kidney Chest pain CHF due to valvular disease Coronary artery disease DM type 2 (diabetes mellitus, type 2) Do not resuscitate status Dyslipidemia Goals of care, counseling/discussion LBBB (left bundle branch block) Mild aortic stenosis Mild mitral stenosis Mitral regurgitation Nephrotic syndrome Palliative care encounter Severe protein-calorie malnutrition Subclavian arterial stenosis Weakness Surgical History H/O repair of left rotator cuff H/O varicose vein stripping History of appendectomy History of hysterectomy History of stent insertion of renal artery R renal artery; 2020 in [facility] Social History Smoking Status: Former smoker Tobacco Type: Cigarettes Do You Dip or Chew Tobacco: No; Hx Alcohol Use: No Hx Substance Use: No Preferred Language: Macedonian 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 Ability: Effective Contract Administration Specialist Required: No Beliefs That Will Affect Care: None marital status: / Current Living Situation: Family Current Living Situation Comment: lives w/ dtr Other Information That Helps Us Care for You: No Feels Safe at Home: Yes Safety Concerns: Feels Safe At This Time Assistive Devices: Walker Review of Systems Review of Systems: [place] System Assessment Scale: Pain: 2/3 Shortness of breath: 0/3 Anxiety: 1/3 Tiredness: 1/3 Palliative Performance Scale: 40% Physical Exam Constitutional: + ill appearing, + frail appearing and cooperative ENMT: Nose: + dry nasal mucous membranes Respiratory: normal respiratory effort, lungs clear to auscultation Auscultation: + diminished lung sounds Cardiovascular: Rate/Rhythm: + tachycardic Heart Sounds: normal S1 and normal S2 Extremities: normal capillary refill; no edema Gastrointestinal (Abdomen): normal bowel sounds, soft, nontender, no hepatosplenomegaly Skin: no rashes, warm and dry Psychiatric: A+Ox3, euthymic affect Insight: + limited insight Judgement: + limited judgement Results & Data ([facility]) Vital Signs (Past 12 Hours) Vital Signs Temp Pulse Pulse Resp BP Pulse Ox 10/27/20 07:16 36.9 C 120 H 20 175/77 H 90 10/27/20 07:00 119 H 10/27/20 03:22 37.3 C 119 H 20 184/79 H 91 10/27/20 03:06 94 H 10/26/20 22:53 36.7 C 101 H 19 166/60 H 99 PG Care Time/CCT Total # of Minutes Spent Total Time Spent with Patient: Total time spent is greater than 50% in coordination of care (as documented) at patient's floor/unit and/or counseling patient: 100 minutes with > 50% of that time spent assessing the patient, discussing goals of care with the patient, and collaborating with the IDT Coding Level of Care Code 79648 Inpt Consult Level 4 Diagnoses Palliative care encounter Z51.5 Weakness R53.1 Severe protein-calorie malnutrition E43 CHF exacerbation I50.9 Heart failure type: unspecified Chest pain R07.9 Time Spent (min) 100
[2020-10-27] MEDS ORDERED: ACETAMINOPHEN 1000 MG/100 ML IV IV PRN (11:18)
--- NOTE | 2020-10-27 13:27 | Hospitalist Progress Note ---
Date of Service October 27, 2020 Assessment & Plan (1) Chest pain: Presented with chest pain No significant EKG changes and troponin remains negative We will get serial troponins Received sublingual nitro and the pain is controlled With pain may be secondary to hypertensive urgency Will increase isosorbide to 20 mg 3 times daily for chest pain and also to control blood pressure No precordial pain Has some left lateral chest wall pain-we will apply lidocaine patch and diclofenac gel Goals of care Has had prior palliative care evaluation Will ask for reevaluation by the palliative care Will likely to go to a facility for appropriate geriatric personal care aide administer medications right time Appreciate palliative care input and recommendation If remains stable will be sent to home with hospice tomorrow (2) Hypertensive urgency: 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 Did not take her medications this morning Blood pressure was noted to be very high at presentation with systolic of 218 and diastolic 116 We will continue her usual medications and increase isosorbide to 20 mg 3 times daily Blood pressure remains elevated but below systolic 190 (3) Noncompliance with medication regimen: Has been taking her medications the way she is supposed to be Home with hospice and more compliance with medication (4) Nephrotic syndrome: Has nephrotic range proteinuria Kidney function seems to be little better (5) CKD (chronic kidney disease), stage III: As above (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: Chest x-ray is not showing any pulmonary vascular congestion We will continue with her current dose of Lasix and spironolactone Does not have any acute volume overload (7) DM type 2 (diabetes mellitus, type 2): We will put her on sliding scale insulin coverage (8) Chronic anticoagulation: Has been on Eliquis likely secondary to valvular heart disease We will continue Eliquis Has left subclavian stenosis Not for any further intervention (9) Abnormal involuntary movements: She has been ongoing involuntary movement involving whole of the body and extremities She has had evaluation by neurologist and has had relevant investigations without any definite cause for that Benzodiazepine helps the abnormal movement We will give Ativan 0.5 mg IV Discussed with the daughter in detail and will plan to give sublingual Ativan as needed as an outpatient CODE STATUS DNR/DNI Admission and Anticipated Discharge Date Admission Date: October 26, 2020 Subjective 10/27/2020 The patient was seen and examined in telemetry unit She has been feeling little better but he still has abnormal movements Denies any significant symptoms except some pain at the left lateral chest wall No fever and/or chills Review of Systems Review of Systems: All systems reviewed and are unremarkable except as noted below Physical Exam Physical Exam: Lying in bed with distress secondary to abnormal movements of the body and limbs Constitutional: + acute distress (Abnormal movements of the body and limbs), + ill appearing and + thin Eyes: PERRL, conjunctivae normal, anicteric sclerae ENMT: external ear and nose normal, oropharynx normal Neck: trachea midline, no thyromegaly Respiratory: no respiratory distress Auscultation: lungs clear to auscultat ion bilaterally; no crackles Cardiovascular: Rate/Rhythm: + irregularly irregular Heart Sounds: + murmur (2/6 ESM over precordium) Extremities: no edema Chest (Breasts): Additional Comments: Left lateral wall tenderness Gastrointestinal (Abdomen): Inspection/Auscultation: normal bowel sounds; abdomen not distended Percussion/Palpation: abdomen soft; abdomen nontender Musculoskeletal: No acute arthritis in any joint Neurologic: Alert and awake , pleasantly confused Lymphatic: no cervical or axillary lymphadenopathy Results & Data Results & Data ([facility]) Vital Signs (Past 12 Hours) Vital Signs Temp Pulse Pulse Resp BP Pulse Ox 10/27/20 11:20 37.1 C 115 H 17 183/66 H 90 10/27/20 07:16 36.9 C 120 H 20 175/77 H 90 10/27/20 07:00 119 H 10/27/20 03:22 37.3 C 119 H 20 184/79 H 91 10/27/20 03:06 94 H Laboratory Results Short CBC 10/26/20 10/27/20 Range/Units 15:20 03:06 WBC 12.07 H 14.12 H (4.8-10.8) K/uL Hgb 12.1 10.4 L (12.0-16.0) g/dL Hct 37.2 31.6 L (37-47) % Plt Count 390 422 H (130-400) K/uL BMP 10/26/20 10/27/20 15:20 03:06 Sodium 136 136 Potassium 3.9 4.2 Chloride 103 104 Carbon Dioxide 19 L 25 BUN 21 H 27 H Creatinine 1.70 H 1.77 H Glucose 204 H 250 H Calcium 9.3 9.5 Cardiac Enzymes 10/26/20 10/26/2010/27/21 Range/Units 15:20 20:53 03:06 Troponin I 0.026 0.042 0.036 (0-0.045) ng/ml Medications Administered Current Inpatient Medications Acetaminophen (Acetaminophen 1000 Mg/100 Ml Iv) 1,000 mg IV Q8H PRN PRN Reason: Pain Stop: 10/30/20 11:17 Last Admin: 10/27/20 12:42 Dose: 1,000 mg Documented by: Amlodipine Besylate (Amlodipine Besylate 5 Mg Tab) 10 mg PO HS [facility] Stop: 11/26/20 20:59 Apixaban (Apixaban 2.5 Mg Tab) 2.5 mg PO BID [facility] Stop: 11/25/20 20:59 Last Admin: 10/27/20 07:29 Dose: Not Given Documented by: Atorvastatin Calcium (Atorvastatin 20 Mg Tab) 20 mg PO QAM [facility] Stop: 11/26/20 08:59 Last Admin: 10/27/20 08:30 Dose: 20 mg Documented by: Dextrose (Dextrose 50% 50 Ml Syringe) 25 - 50 ml IV UD PRN; Protocol PRN Reason: Hypoglycemia Protocol Stop: 11/25/20 19:14 Furosemide (Furosemide 20 Mg Tab) 20 mg PO MoWeFr@0900 [facility] Stop: 11/26/20 08:59 Last Admin: 10/27/20 08:29 Dose: 20 mg Documented by: Glucagon (Glucagon For Inj 1 Mg Vial) 1 mg IM UD PRN; Protocol PRN Reason: Hypoglycemia Protocol Stop: 11/25/20 19:14 Glucose (Glucose 40% Gel 15 Gm Tube) 15 - 30 gm PO UD PRN; Protocol PRN Reason: Hypoglycemia Protocol Stop: 11/25/20 19:14 Glucose (Glucose 10 Tabs/Tube) 4 - 8 tabs PO UD PRN; Protocol PRN Reason: Hypoglycemia Protocol Stop: 11/25/20 19:14 Hydralazine HCl (Hydralazine Tab 50 Mg Tab) 100 mg PO TID [facility] Stop: 11/25/20 20:59 Last Admin: 10/27/20 08:29 Dose: 100 mg Documented by: Promethazine HCl 25 mg/ Sodium (Chloride) 51 mls @ 204 mls/hr IV Q6H PRN PRN Reason: Nausea And Vomiting Stop: 11/26/20 07:59 Last Infusion: 10/27/20 08:45 Dose: Infused Documented by: Insulin Aspart (Insulin Aspart 100 Units/Ml 3 Ml Pen) 0 units SC ACHS [facility] Stop: 11/25/20 20:59 Last Admin: 10/27/20 12:18 Dose: Not Given Documented by: Isosorbide Dinitrate (Isosorbide Dinitrate 20 Mg Tab) 20 mg PO TID@0700,1200,1700 [facility] Stop: 11/25/20 20:59 Last Admin: 10/27/20 07:32 Dose: 20 mg Documented by: Lidocaine (Lidocaine 5% 1 Patch) 1 patch TD QAM [facility] Stop: 11/26/20 12:14 Lorazepam (Lorazepam 1 Mg Tab) 1 mg SL Q8H PRN PRN Reason: Muscle Spasm Stop: 11/25/20 17:59 Last Admin: 10/26/20 23:02 Dose: 1 mg Documented by: Miscellaneous (Carbohydrates For Hypoglycemia ) 15 - 30 gm PO UD PRN PRN Reason: Hypoglycemia Treatment Stop: 11/25/20 19:14 Miscellaneous (Remove Lidoderm Patch) 1 ea N/A DAILY@2100 [facility] Stop: 11/26/20 20:59 Pantoprazole Sodium (Pantoprazole 40 Mg Tab) 40 mg PO DAILYBB [facility] Stop: 11/26/20 06:29 Last Admin: 10/27/20 06:10 Dose: 40 mg Documented by: Senna/Docusate Sodium (Docusate Sodium/Senna 50/8.6mg Tab) 1 tab PO BID [facility] Stop: 11/25/20 20:59 Last Admin: 10/27/20 08:30 Dose: 1 tab Documented by: Spironolactone (Spironolactone 25 Mg Tab) 25 mg PO QAM [facility] Stop: 11/26/20 08:59 Last Admin: 10/27/20 08:30 Dose: 25 mg Documented by: (1) Chest pain Chest pain type: unspecified Qualified Code(s): R07.9 - Chest pain, unspecified (2) CKD (chronic kidney disease), stage III Chronic kidney disease stage 3 subtype: stage 3b (GFR 30-44) Qualified Code(s): N18.32 - Chronic kidney disease, stage 3b
[2020-10-27] MEDS: LIDOCAINE 5% 1 PATCH TD SCH (13:41)
[2020-10-27] MEDS: MoRPHine SULFATE 2 MG/ML CARP IV PRN (16:45)
--- NOTE | 2020-10-27 17:56 | CT Scan Report ---
CT chest diagnostic wo con CT DOSE: 410.17 mGycm HISTORY: Chest wall pain. r/o rib fracture TECHNIQUE: Multiaxial CT images of the chest were performed without contrast. A dose lowering techni que was utilized adhering to the principles of ALARA. COMPARISON: Chest CT 10/20/2020. FINDINGS: Motion artifact results in suboptimal evaluation of the ribs. However, there are not defini te acute rib fractures identified. No acute fractures identified within the visualized osseous struct ures of the chest. No pneumothorax. Small bilateral pleural effusions persist. The central airways ar e patent. Stable 6 mm groundglass nodule within the right upper lobe on image 98. Patchy densities wi thin the bilateral lower lobes posteriorly are also unchanged. This may represent atelectasis from th e pleural effusions. A pneumonia could also a similar appearance. Limited views of the upper abdomen demonstrate normal liver, spleen, and adrenal glands. Mild circumflex partial thickening of the dista l esophagus and a small hiatus hernia remain unchanged. No mediastinal or hilar lymphadenopathy. The heart remains enlarged. There is dense mitral annulus calcifications again noted. Moderate calcified plaque within the normal caliber abdominal aorta. Heterogeneous and calcified left thyroid lobe, unch anged. IMPRESSION: 1. Suboptimal evaluation due to the motion artifact. No definite acute rib fractures identified. No p neumothorax. 2. No change in the small bilateral pleural effusions and bibasilar densities. This favors atelectasi s. 3. Stable 6 mm groundglass nodule within the right upper lobe. Follow-up was described on the prior s armida. 4. Stable cardiomegaly. ACT 112: Negative or not required by law. Electronically signed by: Wing Lopez M.D. 10/27/2020 5:54 PM
[2020-10-27] MEDS: amLODIPine BESYLATE 5 MG TAB PO SCH (20:24)
[2020-10-28] MEDS: MoRPHine SULFATE 2 MG/ML CARP IV PRN (04:29)
[2020-10-28] MEDS: PROMETHAZINE HCL 25 MG in SODIUM CHLORIDE 0.9% 50 ML IV PRN ×2 (05:07→15:31)
[2020-10-28] MEDS: PANTOprazole 40 MG TAB PO SCH (05:07)
[2020-10-28] MEDS: ISOSORBIDE DINITRATE 20 MG TAB PO SCH ×3 (07:26→17:44)
[2020-10-28] MEDS: SPIRONOLACTONE 25 MG TAB PO SCH (09:07)
[2020-10-28] MEDS: ATORVASTATIN 20 MG TAB PO SCH (09:07)
[2020-10-28] MEDS: hydrALAZINE TAB 50 MG TAB PO SCH ×3 (09:07→21:08)
[2020-10-28] MEDS: DOCUSATE SODIUM/SENNA 50/8.6MG TAB PO SCH ×2 (09:07→21:08)
[2020-10-28] MEDS: LIDOCAINE 5% 1 PATCH TD SCH (09:08)
[2020-10-28] MEDS: APIXABAN 2.5 MG TAB PO SCH ×2 (09:09→21:08)
[2020-10-28] MEDS: INSULIN ASPART 100 UNITS/ML 3 ML PEN SC SCH ×4 (09:10→21:10)
[2020-10-28 09:30] LABS: BUN Creatinine Ratio 19.3 (10-20); Creatinine Clr Calc Pharmacy 19.6 ml/min; Est GFR (African American) 30.7 ml/min; Est GFR (Non-African American) 26.5 ml/min; Potassium 3.7 mmol/L (3.5-5.1)
[2020-10-28 09:46] LABS: Basophils # (auto) 0.01 K/uL (0-0.2); Eosinophils # (auto) 0.01 K/uL (0-0.5); Hematocrit (blood only) 34.5 % (37-47); Immature Granulocytes # (auto) 0.16 K/uL (0.00-0.02); Immature Granulocytes % (auto) 0.7 %; Lymphocytes # (auto) 2.19 K/uL (1.2-3.4); Lymphocytes % (auto) 9.8 %; Mean Corpuscular Hemoglobin 23.9 pg (25-34); Mean Corpuscular Hgb Conc 31.9 g/dL (32-36); Mean Corpuscular Volume 74.8 fL (80-100); Mean Platelet Volume 8.9 fL (7.4-10.4); Monocytes # (auto) 0.91 K/uL (0.11-0.59); Monocytes % (auto) 4.1 %; Neutrophils # (auto) 19.09 K/uL (1.4-6.5); Neutrophils % (auto) 85.4 %; Platelet Count 379 K/uL (130-400); RDW Coefficient of Variation 17.7 % (11.5-14.5); Red Blood Count 4.61 M/uL (4.2-5.4); White Blood Count 22.37 K/uL (4.8-10.8)
--- NOTE | 2020-10-28 11:08 | Hospitalist Progress Note ---
Date of Service October 28, 2020 Assessment & Plan (1) Chest pain: Presented with chest pain No significant EKG changes and troponin remains negative We will get serial troponins-unremarkable Received sublingual nitro and the pain is controlled With pain may be secondary to hypertensive urgency Will increase isosorbide to 20 mg 3 times daily for chest pain and also to control blood pressure No precordial pain Has some left lateral chest wall pain-we will apply lidocaine patch and diclofenac gel CT of the chest did not show any rib fracture Has been getting morphine for pain control as per palliative Will start oral pain medications Goals of care Has had prior palliative care evaluation Will likely to go to a facility for appropriate patient care nursing assistant administer medications right time Appreciate palliative care input and recommendation The daughter does not want to have hospice care at home rather she wants to take her mom home with some home health nurse help She has noted to have high white count-we will send UA to make sure there is no infection in the urine She wants to go home but likely not to be today due to increasing white count Leukocytosis Chest x-ray and CT of the chest did not show any definitive infection/pneumonia We will send UA and culture if needed Will not start any antibiotic as of yet (2) Hypertensive urgency: 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 Did not take her medications this morning Blood pressure was noted to be very high at presentation with systolic of 218 and diastolic 116 We will continue her usual medications and increase isosorbide to 20 mg 3 times daily Blood pressure remains elevated but below systolic 190 Blood pressure seems to be controlled with current medication regimen (3) Noncompliance with medication regimen: Has been taking her medications the way she is supposed to be Home with hospice and more compliance with medication (4) Nephrotic syndrome: Has nephrotic range proteinuria Kidney function seems to be little better Nephrology consulted during recent hospital visit (5) CKD (chronic kidney disease), stage III: As above (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: Chest x-ray is not showing any pulmonary vascular congestion We will continue with her current dose of Lasix and spironolactone Does not have any acute volume overload (7) DM type 2 (diabetes mellitus, type 2): We will put her on sliding scale insulin coverage (8) Chronic anticoagulation: Has been on Eliquis likely secondary to valvular heart disease We will continue Eliquis Has left subclavian stenosis Not for any further intervention (9) Abnormal involuntary movements: She has been ongoing involuntary movement involving whole of the body and extremities She has had evaluation by neurologist and has had relevant investigations without any definite cause for that Benzodiazepine helps the abnormal movement We will give Ativan 0.5 mg IV Discussed with the daughter in detail and will plan to give sublingual Ativan as needed as an outpatient CODE STATUS DNR/DNI Admission and Anticipated Discharge Date Admission Date: October 26, 2020 Subjective 10/27/2020 The patient was seen and examined in telemetry unit She has been feeling little better but he still has abnormal movements Denies any significant symptoms except some pain at the left lateral chest wall No fever and/or chills 10/28/2020 The patient was seen and examined in telemetry unit She still complains to have pain in the left lateral chest wall Denies any fever and/or chills, denies any urinary symptoms She wants to go home Review of Systems Review of Systems: All systems reviewed and are unremarkable except as noted below Physical Exam Physical Exam: Lying in bed with mild distress due to left lateral chest wall pain Constitutional: + acute distress (Mild with some left lateral chest wall pain), + ill appearing and + thin Eyes: PERRL, conjunctivae normal, anicteric sclerae ENMT: external ear and nose normal, oropharynx normal Neck: trachea midline, no thyromegaly Respiratory: no respiratory distress Auscultation: + diminished lung sounds and + crackles (Minimal bibasilar crackles); no wheezes Cardiovascular: Rate/Rhythm: + irregularly irregular Heart Sounds: + murmur (2/6 ESM over precordium) Extremities: no edema Gastrointestinal (Abdomen): Inspection/Auscultation: normal bowel sounds; abdomen not distended Percussion/Palpation: abdomen soft; abdomen nontender Musculoskeletal: No acute arthritis in any joint Neurologic: Alert and awake. Pleasantly confused. Moving all limbs. No more abnormal movements today. Generally weak Lymphatic: no cervical or axillary lymphadenopathy Results & Data Results & [facility]) Vital Signs (Past 12 Hours) Vital Signs Temp Pulse Pulse Resp BP Pulse Ox 10/28/20 07:30 36.9 C 118 H 20 135/89 94 10/28/20 07:00 116 H 10/28/20 04:23 36.9 C 115 H 19 176/70 H 93 10/27/20 23:39 36.4 C L 116 H 20 130/82 93 10/27/20 23:00 113 H Laboratory Results Short CBC 10/28/20 Range/Units 08:24 WBC 22.37 H (4.8-10.8) K/uL Hgb 11.0 L (12.0-16.0) g/dL Hct 34.5 L (37-47) % Plt Count 379 (130-400) K/uL BMP 10/28/20 08:24 Sodium 134 L Potassium 3.7 Chloride 101 Carbon Dioxide 22 BUN 33 H Creatinine 1.69 H Glucose 194 H Calcium 9.0 Medications Administered Current Inpatient Medications Acetaminophen (Acetaminophen 1000 Mg/100 Ml Iv) 1,000 mg IV Q8H PRN PRN Reason: Pain Stop: 10/30/20 11:17 Last Admin: 10/27/20 12:42 Dose: 1,000 mg Documented by: Amlodipine Besylate (Amlodipine Besylate 5 Mg Tab) 10 mg PO HS [facility] Stop: 11/26/20 20:59 Last Admin: 10/27/20 20:24 Dose: 10 mg Documented by: Apixaban (Apixaban 2.5 Mg Tab) 2.5 mg PO BID [facility] Stop: 11/25/20 20:59 Last Admin: 10/28/20 09:09 Dose: 2.5 mg Documented by: Atorvastatin Calcium (Atorvastatin 20 Mg Tab) 20 mg PO QAM [facility] Stop: 11/26/20 08:59 Last Admin: 10/28/20 09:07 Dose: 20 mg Documented by: Dextrose (Dextrose 50% 50 Ml Syringe) 25 - 50 ml IV UD PRN; Protocol PRN Reason: Hypoglycemia Protocol Stop: 11/25/20 19:14 Furosemide (Furosemide 20 Mg Tab) 20 mg PO MoWeFr@0900 [facility] Stop: 11/26/20 08:59 Last Admin: 10/27/20 08:29 Dose: 20 mg Documented by: Glucagon (Glucagon For Inj 1 Mg Vial) 1 mg IM UD PRN; Protocol PRN Reason: Hypoglycemia Protocol Stop: 11/25/20 19:14 Glucose (Glucose 40% Gel 15 Gm Tube) 15 - 30 gm PO UD PRN; Protocol PRN Reason: Hypoglycemia Protocol Stop: 11/25/20 19:14 Glucose (Glucose 10 Tabs/Tube) 4 - 8 tabs PO UD PRN; Protocol PRN Reason: Hypoglycemia Protocol Stop: 11/25/20 19:14 Hydralazine HCl (Hydralazine Tab 50 Mg Tab) 100 mg PO TID [facility] Stop: 11/25/20 20:59 Last Admin: 10/28/20 09:07 Dose: 100 mg Documented by: Promethazine HCl 25 mg/ Sodium (Chloride) 51 mls @ 204 mls/hr IV Q6H PRN PRN Reason: Nausea And Vomiting Stop: 11/26/20 07:59 Last Infusion: 10/28/20 05:25 Dose: Infused Documented by: Insulin Aspart (Insulin Aspart 100 Units/Ml 3 Ml Pen) 0 units SC ACHS [facility] Stop: 11/25/20 20:59 Last Admin: 10/28/20 09:10 Dose: 4 units Documented by: Isosorbide Dinitrate (Isosorbide Dinitrate 20 Mg Tab) 20 mg PO TID@0700,1200,1700 [facility] Stop: 11/25/20 20:59 Last Admin: 10/28/20 07:26 Dose: 20 mg Documented by: Lidocaine (Lidocaine 5% 1 Patch) 1 patch TD QAM [facility] Stop: 11/26/20 12:14 Last Admin: 10/28/20 09:08 Dose: 1 patch Documented by: Lorazepam (Lorazepam 1 Mg Tab) 1 mg SL Q8H PRN PRN Reason: Muscle Spasm Stop: 11/25/20 17:59 Last Admin: 10/26/20 23:02 Dose: 1 mg Documented by: Miscellaneous (Carbohydrates For Hypoglycemia ) 15 - 30 gm PO UD PRN PRN Reason: Hypoglycemia Treatment Stop: 11/25/20 19:14 Miscellaneous (Remove Lidoderm Patch) 1 ea N/A DAILY@2100 [facility] Stop: 11/26/20 20:59 Last Admin: 10/27/20 20:25 Dose: 1 ea Documented by: Morphine Sulfate (Morphine Sulfate 2 Mg/Ml Carp) 2 mg IV Q6H PRN PRN Reason: Pain Stop: 11/10/20 16:13 Last Admin: 10/28/20 04:29 Dose: 2 mg Documented by: Pantoprazole Sodium (Pantoprazole 40 Mg Tab) 40 mg PO DAILYBB [facility] Stop: 11/26/20 06:29 Last Admin: 10/28/20 05:07 Dose: 40 mg Documented by: Senna/Docusate Sodium (Docusate Sodium/Senna 50/8.6mg Tab) 1 tab PO BID [facility] Stop: 11/25/20 20:59 Last Admin: 10/28/20 09:07 Dose: 1 tab Documented by: Spironolactone (Spironolactone 25 Mg Tab) 25 mg PO QAM [facility] Stop: 11/26/20 08:59 Last Admin: 10/28/20 09:07 Dose: 25 mg Documented by: (1) Chest pain Chest pain type: unspecified Qualified Code(s): R07.9 - Chest pain, unspecified (2) CKD (chronic kidney disease), stage III Chronic kidney disease stage 3 subtype: stage 3b (GFR 30-44) Qualified Code(s): N18.32 - Chronic kidney disease, stage 3b
--- NOTE | 2020-10-28 11:14 | Electrocardiogram Report ---
Test Reason : Blood Pressure : / mmHG Vent. Rate : 121 BPM Atrial Rate : 121 BPM P-R Int : 122 ms QRS Dur : 142 ms QT Int : 390 ms P-R-T Axes : 047 -08 127 degrees QTc Int : 553 ms Poor data quality, interpretation may be adversely affected Sinus tachycardia with Premature atrial complexes Possible Left atrial enlargement Left bundle branch block Abnormal ECG When compared with ECG of 26-SEP-2020 06:58, Premature atrial complexes are now Present HR has increased Confirmed by German Urena ([id number]) on 10/28/2020 11:13:31 AM Referred By: REFERRED SELF Confirmed By:German Urena
--- NOTE | 2020-10-28 11:30 | Electrocardiogram Report ---
Test Reason : Blood Pressure : / mmHG Vent. Rate : 116 BPM Atrial Rate : 116 BPM P-R Int : 144 ms QRS Dur : 140 ms QT Int : 366 ms P-R-T Axes : 073 006 129 degrees QTc Int : 508 ms Sinus tachycardia with Premature atrial complexes Possible Left atrial enlargement Left bundle branch block Abnormal ECG When compared with ECG of 26-OCT-2020 14:57, (unconfirmed) No significant change was found Confirmed by German Urena ([id number]) on 10/28/2020 11:29:33 AM Referred By: REFERRED SELF Confirmed By:German Urena
[2020-10-28] MEDS: MoRPHine SULFATE 5 MG/0.25 ML UDP PO PRN ×2 (12:31→20:09)
--- NOTE | 2020-10-28 13:26 | Palliative Care Progress Note ---
Date of Service October 28, 2020 Assessment & Plan (1) Palliative care encounter: Lengthy discussion held yesterday and today regarding disposition. Apparently [place] [facility] services differ from [place] as in the amount of time provided for care that is supported. Her mother received 5-6 hours per day of hospice services. After case management and myself discussed hospice and palliative care options and how it works in [place], she decided she did not want to pursue hospice, rather would like to have home health/palliative care through [facility] upon discharge. She does not want overly aggressive measures taken with her mother at this time and wants to avoid future hospitalizations. She recognizes that her mother has now been in the hospital more than out of the hospital over the past few months. She would like additional support at home and would be interested in private field care advocate lists, but was not interested in this when presented. Palliative Medicine can follow for continued pain and symptom support as necessary. (2) Weakness: (3) Severe protein-calorie malnutrition: (4) CHF exacerbation: (5) Chest pain: Patient complaining of left lateral chest pain. CTA ruled out splenic hemorrhage. Tylenol ineffective. Morphine was ordered and she utilized two doses; however, Hospitalist ordered Roxanol 5 mg PO Q4 PRN and she has now taken two doses, which can continue at home. IV Morphine discontinued Admission and Anticipated Discharge Date Admission Date: October 26, 2020 Subjective patient resting during my evaluation. She did wake to verbal stimuli in Ukrainian. Still complaining of left lateral chest wall pain See A/P for further details Review of Systems Review of Systems: [place] System Assessment Scale: Pain: 2/3 Shortness of breath: 0/3 Anxiety: 1/3 Tiredness: 1/3 Palliative Performance Scale: 40% Physical Exam Constitutional: + ill appearing, + frail appearing and cooperative ENMT: Nose: + dry nasal mucous membranes Respiratory: normal respiratory effort, lungs clear to auscultation Auscultation: + diminished lung sounds Cardiovascular: Rate/Rhythm: + tachycardic Heart Sounds: normal S1 and normal S2 Extremities: normal capillary refill; no edema Gastrointestinal (Abdomen): normal bowel sounds, soft, nontender, no hepatosplenomegaly Skin: no rashes, warm and dry Psychiatric: A+Ox3, euthymic affect Insight: + limited insight Judgement : + limited judgement Results & Data ([facility]) Vital Signs (Past 12 Hours) Vital Signs Temp Pulse Pulse Resp BP Pulse Ox 10/28/20 11:32 37.1 C 115 H 20 170/74 H 91 10/28/20 07:30 36.9 C 118 H 20 135/89 94 10/28/20 07:00 116 H 10/28/20 04:23 36.9 C 115 H 19 176/70 H 93 PG Care Time/CCT Total # of Minutes Spent Total Time Spent with Patient: Total time spent is greater than 50% in coordination of care (as documented) at patient's floor/unit and/or counseling patient: 35 minutes with > 50% Of that time spent assessing the patient, discussing goals of care and collaborating with IDT Coding Level of Care Code 21686 Subseq Hosp Care Lvl 3 Diagnoses Palliative care encounter Z51.5 Weakness R53.1 Severe protein-calorie malnutrition E43 CHF exacerbation I50.9 Heart failure type: unspecified Chest pain R07.9 Time Spent (min) 35 (1) CHF exacerbation Heart failure type: unspecified Qualified Code(s): I50.9 - Heart failure, unspecified
[2020-10-28 14:15] LABS: Appearance Urine Clear (Clear); Bacteria Urine Automated Negative (Negative); Bilirubin Urine Negative (Negative); Blood Urine Negative (Negative); Color Urine Yellow; Epithelial Cell Urine Auto 20-30 /lpf (0-5); Glucose Urine UA Trace (Negative); Ketones Urine Negative (Negative); Leukocyte Esterase Urine Negative (Negative); Nitrite Urine Negative (Negative); Protein Urine 4+ (Negative); RBC Urine Automated 0-4 /hpf (0-4); Specific Gravity Urine 1.019 (1.000-1.030); Urobilinogen Urine Negative (Negative)
[2020-10-28] MEDS: amLODIPine BESYLATE 5 MG TAB PO SCH (21:08)
[2020-10-29] MEDS: PROMETHAZINE HCL 25 MG in SODIUM CHLORIDE 0.9% 50 ML IV PRN (03:38)
[2020-10-29] MEDS: MoRPHine SULFATE 5 MG/0.25 ML UDP PO PRN ×3 (03:55→12:00)
[2020-10-29] MEDS: PANTOprazole 40 MG TAB PO SCH (05:38)
[2020-10-29] MEDS: LIDOCAINE 5% 1 PATCH TD SCH (07:42)
[2020-10-29] MEDS: ISOSORBIDE DINITRATE 20 MG TAB PO SCH ×3 (08:20→18:16)
[2020-10-29] MEDS: ATORVASTATIN 20 MG TAB PO SCH (08:20)
[2020-10-29] MEDS: FUROSEMIDE 20 MG TAB PO SCH (08:20)
[2020-10-29] MEDS: DOCUSATE SODIUM/SENNA 50/8.6MG TAB PO SCH ×2 (08:20→20:24)
[2020-10-29] MEDS: SPIRONOLACTONE 25 MG TAB PO SCH (08:20)
[2020-10-29] MEDS: APIXABAN 2.5 MG TAB PO SCH ×2 (08:21→20:22)
[2020-10-29] MEDS: hydrALAZINE TAB 50 MG TAB PO SCH ×3 (08:21→20:23)
[2020-10-29] MEDS: INSULIN ASPART 100 UNITS/ML 3 ML PEN SC SCH ×4 (08:27→20:21)
[2020-10-29 09:05] LABS: Basophils # (auto) 0.02 K/uL (0-0.2); Basophils % (auto) 0.1 %; Hematocrit (blood only) 32.8 % (37-47); Hemoglobin 10.8 g/dL (12.0-16.0); Immature Granulocytes # (auto) 0.11 K/uL (0.00-0.02); Immature Granulocytes % (auto) 0.7 %; Lymphocytes # (auto) 1.86 K/uL (1.2-3.4); Lymphocytes % (auto) 12.5 %; Mean Corpuscular Hemoglobin 24.4 pg (25-34); Mean Corpuscular Hgb Conc 32.9 g/dL (32-36); Mean Corpuscular Volume 74.2 fL (80-100); Mean Platelet Volume 8.4 fL (7.4-10.4); Monocytes # (auto) 0.18 K/uL (0.11-0.59); Monocytes % (auto) 1.2 %; Neutrophils # (auto) 12.73 K/uL (1.4-6.5); Neutrophils % (auto) 85.5 %; Platelet Count 434 K/uL (130-400); RDW Coefficient of Variation 17.6 % (11.5-14.5); RDW Standard Deviation 47.5 fL (36.4-46.3); Red Blood Count 4.42 M/uL (4.2-5.4)
[2020-10-29 09:38] LABS: BUN Creatinine Ratio 21.7 (10-20); Calcium 9.1 mg/dl (8.5-10.1); Est GFR (African American) 31.1 ml/min; Est GFR (Non-African American) 26.8 ml/min; Potassium 3.9 mmol/L (3.5-5.1)
[2020-10-29] MEDS: LORazepam 1 MG TAB SL PRN (11:29)
--- NOTE | 2020-10-29 15:01 | Hospitalist Progress Note ---
Date of Service October 29, 2020 Assessment & Plan (1) Hypertensive urgency: Readmission for hypertensive urgency. Noted discontinuation of clonidine recently. Nephro was very involved last admission and had close follow-up plan for her. Will consult her now. Appreciate continued assistance with BP control. Low salt diet. (2) Chest pain: Presented with chest pain No significant EKG changes and troponin remains negative Pain thought secondary to hypertensive urgency Isosorbide was increased to 20 mg 3 times daily for chest pain and also to control blood pressure CT chest wo contrast unremarkable. Improved effusions. (3) Abdominal discomfort: Recent hospitalization for hematochezia thought secondary to ischemic colitis. There was no CT evidence of bowel wall edema at that time. Per GI consult, endoscopy was deferred given lack of ongoing bleeding. She was tolerating a diet and H/H remained stable on Eliquis. Today she appears to have a generalized abdominal discomfort on exam. However, with her level of somnolence, this cannot be clarified with her right now. Cont to monitor PO intake, BMs and overall clinical picture and discuss further in am. (4) Nephrotic syndrome: Has nephrotic range proteinuria. Kidney function is around her baseline. Nephro consulted. 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 Echo with normal LVEF and mild abnormalities in August 2020. 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 No known documented atrial fibrillation. (9) Abnormal involuntary movements: She has been ongoing involuntary movement involving whole of the body and extremities She has had evaluation by neurologist and has had relevant investigations without any definite cause for that (10) DVT prophylaxis: Eliquis DNR/DNI Dispo-uncertain at this time. DO Jyoti Haro Hospitalist Admission and Anticipated Discharge Date Admission Date: October 26, 2020 Subjective 89 yo F in and out of hospice in recent months and with multiple hospital readmissions presented just days after being discharged from the hospital for hypertensive urgency. Her medications were adjusted and she was home for only a day or so until she returned reporting chest pain. BP was again uncontrolled with patient's daughter reporting that she had been unable to take all the BP meds because of feeling unwell. She was given nitro with resolution of the pain. EKG revealed chronic LBBB and trop was trended overnight and negative. Palliative was consulted and she was placed on morphine and ativan for comfort, however, daughter does not want to go into Hospice care at this time. The reason behind this is that back in [place], Ms. Higuera was on hospice, during which time she was disconnected with all her physicians and specialists. After 6 months, hospice dropped her and because of covid, her daughter had much difficulty getting her back into physician care. At this point today she has been given Lorazepam 1mg and morphine 5mg and was extremely somnolent. She is a confirmed DNR. Per my conversation with her daughter, we will not do anything heroic, however, she would like her mother to be treated at this point for her multiple comorbidities, keeping her as comfortable as possible. As she is not used to medications like benzos and narcotics, these were stopped on a regular basis but may be used for one time orders as needed. The patient is able to awake and tell me she has no pain but she is somnolent and easily falls asleep. She denies any SOB. Review of Systems Review of Systems: Other (limited 2/2 somnolence on morphine and Ativan) Physical Exam Physical Exam: CONSTITUTIONAL: WNWD, vitals as above, generally somnolent EYES: normal n, no scleral icterus ENT: external ear and nose normal, MMM RESPIRATORY: crackles at bases bilaterally, no rales or wheezes, normal respiratory effort CARDIOVASCULAR: regular rate and rhythm, 3/6 KAIN, no gallops or rubs, no JVD, no peripheral edema GASTROINTESTINAL: soft, generalized discomfort, nondistended, no guarding MUSCULOSKELETAL: strength 5/5 throughout, head is normocephalic and atraumatic SKIN: warm and dry NEUROLOGIC: CN 2-12 grossly intact, somnolent, normal speech PSYCHIATRIC: answering questions appropriately when prompted. Results & Data Results & Data ([facility]) Vital Signs (Past 12 Hours) Vital Signs Temp Pulse Pulse Resp BP Pulse Ox 10/29/20 11:56 140/78 10/29/20 11:20 37.0 C 104 H 20 170/118 H 92 10/29/20 07:29 36.9 C 117 H 22 181/99 H 92 10/29/20 07:20 114 H 10/29/20 04:00 36.8 C 116 H 18 175/88 H 96 Laboratory Results Short CBC 10/29/20 Range/Units 08:53 WBC 14.90 H (4.8-10.8) K/uL Hgb 10.8 L (12.0-16.0) g/dL Hct 32.8 L (37-47) % Plt Count 434 H (130-400) K/uL BMP 10/29/20 08:53 Sodium 131 L Potassium 3.9 Chloride 100 Carbon Dioxide 22 BUN 36 H Creatinine 1.67 H Glucose 247 H Calcium 9.1 Medications Administered Current Inpatient Medications Acetaminophen (Acetaminophen 1000 Mg/100 Ml Iv) 1,000 mg IV Q8H PRN PRN Reason: Pain Stop: 10/30/20 11:17 Last Admin: 10/27/20 12:42 Dose: 1,000 mg Documented by: Amlodipine Besylate (Amlodipine Besylate 5 Mg Tab) 10 mg PO HS [facility]ATT Stop: 11/26/20 20:59 Last Admin: 10/28/20 21:08 Dose: 10 mg Documented by: Apixaban (Apixaban 2.5 Mg Tab) 2.5 mg PO BID [facility] Stop: 11/25/20 20:59 Last Admin: 10/29/20 08:21 Dose: 2.5 mg Documented by: Atorvastatin Calcium (Atorvastatin 20 Mg Tab) 20 mg PO QAM [facility] Stop: 11/26/20 08:59 Last Admin: 10/29/20 08:20 Dose: 20 mg Documented by: Dextrose (Dextrose 50% 50 Ml Syringe) 25 - 50 ml IV UD PRN; Protocol PRN Reason: Hypoglycemia Protocol Stop: 11/25/20 19:14 Furosemide (Furosemide 20 Mg Tab) 20 mg PO MoWeFr@0900 [facility] Stop: 11/26/20 08:59 Last Admin: 10/29/20 08:20 Dose: 20 mg Documented by: Glucagon (Glucagon For Inj 1 Mg Vial) 1 mg IM UD PRN; Protocol PRN Reason: Hypoglycemia Protocol Stop: 11/25/20 19:14 Glucose (Glucose 40% Gel 15 Gm Tube) 15 - 30 gm PO UD PRN; Protocol PRN Reason: Hypoglycemia Protocol Stop: 11/25/20 19:14 Glucose (Glucose 10 Tabs/Tube) 4 - 8 tabs PO UD PRN; Protocol PRN Reason: Hypoglycemia Protocol Stop: 11/25/20 19:14 Hydralazine HCl (Hydralazine Tab 50 Mg Tab) 100 mg PO TID [facility] Stop: 11/25/20 20:59 Last Admin: 10/29/20 08:21 Dose: 100 mg Documented by: Insulin Aspart (Insulin Aspart 100 Units/Ml 3 Ml Pen) 0 units SC ACHS [facility] Stop: 11/25/20 20:59 Last Admin: 10/29/20 13:05 Dose: Not Given Documented by: Isosorbide Dinitrate (Isosorbide Dinitrate 20 Mg Tab) 20 mg PO TID@0700,1200,1700 [facility] Stop: 11/25/20 20:59 Last Admin: 10/29/20 11:27 Dose: 20 mg Documented by: Lidocaine (Lidocaine 5% 1 Patch) 1 patch TD QAM [facility] Stop: 11/26/20 12:14 Last Admin: 10/29/20 07:42 Dose: 1 patch Documented by: Lorazepam (Lorazepam 1 Mg Tab) 1 mg SL Q8H PRN PRN Reason: Muscle Spasm Stop: 11/25/20 17:59 Last Admin: 10/29/20 11:29 Dose: 1 mg Documented by: Miscellaneous (Carbohydrates For Hypoglycemia ) 15 - 30 gm PO UD PRN PRN Reason: Hypoglycemia Treatment Stop: 11/25/20 19:14 Miscellaneous (Remove Lidoderm Patch) 1 ea N/A DAILY@2100 [facility] Stop: 11/26/20 20:59 Last Admin: 10/28/20 21:08 Dose: 1 ea Documented by: Morphine Sulfate (Morphine Sulfate 5 Mg/0.25 Ml Udp) 5 mg PO Q4H PRN PRN Reason: Pain Stop: 11/11/20 11:54 Last Admin: 10/29/20 12:00 Dose: 5 mg Documented by: Pantoprazole Sodium (Pantoprazole 40 Mg Tab) 40 mg PO DAILYBB [facility] Stop: 11/26/20 06:29 Last Admin: 10/29/20 05:38 Dose: 40 mg Documented by: Senna/Docusate Sodium (Docusate Sodium/Senna 50/8.6mg Tab) 1 tab PO BID [facility] Stop: 11/25/20 20:59 Last Admin: 10/29/20 08:20 Dose: 1 tab Documented by: Spironolactone (Spiron[facility]actone 25 Mg Tab) [facility] [place] Stop: 11/26/20 08:59 Last Admin: 10/29/20 08:20 Dose: 25 mg Documented by: (1) CKD (chronic kidney disease), stage III Chronic kidney disease stage 3 subtype: stage 3b (GFR 30-44) Qualified Code(s): N18.32 - Chronic kidney disease, stage 3b (2) Chest pain Chest pain type: unspecified Qualified Code(s): R07.9 - Chest pain, unspecified
--- NOTE | 2020-10-29 15:19 | Nephrology Consultation ---
Date of Consultation October 29, 2020 Assessment & Plan (1) Hypertensive urgency: on amlodipine 10 mg hs, lasix 20 mg mwf, hydralazine 100 mg tid, spironolactone 25 mg daily; also on imdur 20 mg tid. w/ resistant HTN and negative w/u at last admission; she does have component of nephrotic syndrome as well. negative secondary w/o recently. Goal sbp is 140-150s -tachycardia/HTN in part I suspect to clonidine withdrawal and to med nonadherence, though she has had all her bp meds in house >>will try to avoid clonidine -trial also of coreg 3.25 mg bid w/ food ordered -cont other bp meds as currently ordered -can give labetalol prn overnight SBP > 180 Present on Admission?: Yes (2) Noncompliance with medication regimen: palliative following; for increased home support to improve this Present on Admission?: Yes (3) CKD (chronic kidney disease), stage III: prior baseline had been 1.6-1.8 creatinine for advanced ckd 3, early ckd4 -daily bmp while in house -meds as above -proteinuria w/u pending but negative todate -not a candidate for dialysis or biopsy discussion in this clinical context if need were to arise -continue to minimize/avoid nephrotoxins Present on Admission?: Yes (4) Chest pain: had been on frequent and for pt w/ ckd fairly high dose opiates; these are now held as pt w/ diminished MS. -cont nitrates and lidocaine; morphine off now Present on Admission?: Yes History of Present Illness Reason for Consultation: advanced CKD, HTN Requesting Physician: Dr Hood Attending Physician: Kaila Hood, DO History of Present Illness 89 y/o F whom I am asked to evaluate for hypertension, tachycardia, advanced CKD was readmitted here October 26 after recent 10 day admission and 10/24 d/c for rectal bleeding attributed to mild acute on chronic ischemic colitis and resistant HTN Other medical history includes chronic valvular diastolic heart failure, coronary artery disease hypertension with history of hypertensive urgency and admission for same September 26 to October 01, 2020 here and one earlier in August as well, history of renal artery stenosis status post right stent and with atrophied left kidney, CKD 3/4 outpatient baseline creatinine 1.5-1.6, chronic mild ischemic colitis, chronic insomnia; controlled diabetes, splenic infarct, hyperlipidemia, abnormal extremity movements present for greater than 6 months and evaluated by neurology with to date negative work-up; L subclavian stenosis. Cardiology and neurology both followed her during her August admission; neither consulted for September admissions. Pt was readmitted after about 48 hrs from last d/c d/t taking poor po, nonadherence w/ medications, abd and chest pain, and daughter feeling she needs more support. Pt had not taken her bp meds on day of readmission and presented w/ bp 210s/110s. Her imdur was increased; troponins and other cardiac eval were negative. Palliative care was consulted to consider goals of care >> goal is for d/c home w/ support from hospice and effort to avoid readmissions to hospital; however pt is not for comfort measures as I read chart. Pt has been receiving roxanol 5 mg q4-6 hr. When I evaluated her she could hardly open her eyes or speak a sentence. she did tell me she was not short of breath and had no pain. Further details of health hx (from prior consult): The right renal stent was placed just prior to the outbreak of Covid [facility]. Outpatient follow-up with nephrology was set up after that admission in [facility] but derailed by the pandemic. Her blood pressure had been per her report 260-280 systolic prior to the stent; she also endorses frequent UTIs which she said were cleared by the stent. The patient lived until recently in [place] and moved here early August to be w/ her daughter; just prior to moving here, she was in hospital in [facility] x 2 admissions both with what sounds like volume overload/hypertensive urgency. She told me she has had HTN since age 16. 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 No FH of CKD/ESRD; no personal or FH of stones. Per her daughter pt went from a pre-Covid weight of 185 pounds to a weight of 100 pounds within 6 months but has since gained some weight back. During that time she had had minimal appetite. At last admission pt was up to bathroom by herself but markedly dyspneic and unsteady on her feet even w/ walker. When she left the hospital, her bp was 140-160s systolic w/ HR in 50-60s after weaning clonidine. Currently in 170s systolic today with HR 100s-110s. has not had clonidine since admission. Allergies Allergy/AdvReac Type Severity Reaction Status Date / Time Penicillins Allergy Intermediate Rash Verified 10/26/20 16:38 Quinolones Allergy Intermediate Rash Verified 10/26/20 16:38 aspirin AdvReac Mild burning in Verified 10/26/20 16:38 stomach Home Medications Medication Instructions Recorded Confirmed Type amlodipine 10 mg PO HS 03/31/19 10/26/20 History atorvastatin 20 mg PO QAM #30 tab 04/12/19 10/26/20 Rx hydralazine 100 mg PO TID #90 tab 04/12/19 10/26/20 Rx pantoprazole 40 mg PO DAILYBB 09/06/20 10/26/20 History sennosides-docusate sodium [Senna 1 tab-cap PO BID 09/06/20 10/26/20 History with Docusate Sodium] isosorbide dinitrate 10 mg PO TID 09/26/20 10/26/20 History furosemide [Lasix] 20 mg PO UD #0 tab 10/24/20 10/26/20 Rx spironolactone 25 mg PO QAM 30 Days #30 tab 10/24/20 10/26/20 Rx apixaban [Eliquis] 2.5 mg PO BID 10/26/20 10/26/20 History Patient History Medical History Atrophy of left kidney Chest pain CHF due to valvular disease Coronary artery disease DM type 2 (diabetes mellitus, type 2) Do not resuscitate status Dyslipidemia Goals of care, counseling/discussion LBBB (left bundle branch block) Mild aortic stenosis Mild mitral stenosis Mitral regurgitation Nephrotic syndrome Palliative care encounter Severe protein-calorie malnutrition Subclavian arterial stenosis Weakness Surgical History H/O repair of left rotator cuff H/O varicose vein stripping History of appendectomy History of hysterectomy History of stent insertion of renal artery R renal artery; 2020 in [facility] Family History Denies family history of Kidney disease Social History Smoking Status: Former smoker Tobacco Type: Cigarettes Do You Dip or Chew Tobacco: No; Hx Alcohol Use: No Hx Substance Use: No Preferred Language: Malay 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 Ability: Effective Youth Services Specialist Required: No Beliefs That Will Affect Care: None marital status: / Current Living Situation: Family Current Living Situation Comment: lives w/ dtr Other Information That Helps Us Care for You: No Feels Safe at Home: Yes Safety Concerns: Feels Safe At This Time Assistive Devices: Walker Review of Systems Review of Systems: Unobtainable due to reduced consciousness Physical Exam Constitutional: well developed, + thin and + lethargic (near somnolent); no acute distress ENMT: Ears: no external ear abnormality Nose: no external nose abnormality Mouth: + dry oral mucous membranes Neck: no nuchal rigidity Respiratory: normal respiratory effort Auscultation: lungs clear to ausc ultation bilaterally and + diminished lung sounds Cardiovascular: Rate/Rhythm: regular rhythm and + tachycardic Extremities: no edema Gastrointestinal (Abdomen): Inspection/Auscultation: normal bowel sounds Percussion/Palpation: abdomen soft; abdomen nontender and no guarding Musculoskeletal: Extremities: + abnormal strength (generalized weakness) Skin: no rashes, warm and dry Neurologic: carrington, barely speaks, somnolent Results & Data ([facility]) Vital Signs (Past 12 Hours) Vital Signs Temp Pulse Pulse Resp BP Pulse Ox 10/29/20 14:56 36.6 C 114 H 24 170/112 H 92 10/29/20 11:56 140/78 10/29/20 11:20 37.0 C 104 H 20 170/118 H 92 10/29/20 07:29 36.9 C 117 H 22 181/99 H 92 10/29/20 07:20 114 H 10/29/20 04:00 36.8 C 116 H 18 175/88 H 96 Laboratory Results 10/29/20 08:53 10/29/20 08:53 (1) CKD (chronic kidney disease), stage III Chronic kidney disease stage 3 subtype: stage 3b (GFR 30-44) Qualified Code(s): N18.32 - Chronic kidney disease, stage 3b (2) Chest pain Chest pain type: unspecified Qualified Code(s): R07.9 - Chest pain, unspecified
[2020-10-29] MEDS: carvediloL 3.125 MG TAB PO SCH (20:23)
[2020-10-29] MEDS: amLODIPine BESYLATE 5 MG TAB PO SCH (20:23)
[2020-10-30] MEDS: PANTOprazole 40 MG TAB PO SCH (05:44)
[2020-10-30 06:05] LABS: Hematocrit (blood only) 33.2 % (37-47); Hemoglobin 10.7 g/dL (12.0-16.0); Mean Corpuscular Hemoglobin 23.7 pg (25-34); Mean Corpuscular Hgb Conc 32.2 g/dL (32-36); Mean Corpuscular Volume 73.6 fL (80-100); Mean Platelet Volume 8.3 fL (7.4-10.4); Platelet Count 413 K/uL (130-400); RDW Coefficient of Variation 17.4 % (11.5-14.5); RDW Standard Deviation 46.6 fL (36.4-46.3); Red Blood Count 4.51 M/uL (4.2-5.4); White Blood Count 10.87 K/uL (4.8-10.8)
[2020-10-30 06:49] LABS: BUN Creatinine Ratio 23.3 (10-20); Calcium 8.3 mg/dl (8.5-10.1); Creatinine Clr Calc Pharmacy 20.3 ml/min; Est GFR (African American) 32.5 ml/min; Est GFR (Non-African American) 28.1 ml/min; Magnesium 2.3 mg/dl (1.8-2.4); Potassium 3.2 mmol/L (3.5-5.1)
[2020-10-30] MEDS ORDERED: POTASSIUM CHLORIDE CRTAB 20 MEQ TABCR PO SCH (07:30)
[2020-10-30] MEDS: hydrALAZINE TAB 50 MG TAB PO SCH ×3 (07:34→21:33)
[2020-10-30] MEDS: carvediloL 3.125 MG TAB PO SCH ×2 (07:35→21:34)
[2020-10-30] MEDS: ATORVASTATIN 20 MG TAB PO SCH (07:35)
[2020-10-30] MEDS: ISOSORBIDE DINITRATE 20 MG TAB PO SCH ×3 (07:35→17:21)
[2020-10-30] MEDS: DOCUSATE SODIUM/SENNA 50/8.6MG TAB PO SCH ×2 (07:35→21:34)
[2020-10-30] MEDS: APIXABAN 2.5 MG TAB PO SCH ×2 (07:36→21:34)
[2020-10-30] MEDS: INSULIN ASPART 100 UNITS/ML 3 ML PEN SC SCH ×4 (07:42→21:45)
[2020-10-30] MEDS: SPIRONOLACTONE 25 MG TAB PO SCH (07:47)
[2020-10-30] MEDS: LIDOCAINE 5% 1 PATCH TD SCH (08:12)
--- NOTE | 2020-10-30 10:45 | Palliative Care Progress Note ---
Date of Service October 30, 2020 Assessment & Plan (1) Palliative care encounter: I spoke with Luisa Garcia on the phone. She had been concerned about restarting hospice care for Lety at home after discharge due to concern about not being able to see her regular physician. I reassured her that she would be able to follow with her PCP, Dr. Meléndez as an outpatient and continue to have hospice care. She has not been established with hospice in this area. Knowing this, she would like to have her mother at home with hospice. We discussed equipment that she would need for her care. She tells me that she has an oxygen concentrator at home that was supplied by hospice in [place]. If she was discharged from hospice in [place], that would no longer be covered and would likely need to be switched out. She will be coming in later today and be available to discuss with case management. (2) Constipation: Admission and Anticipated Discharge Date Admission Date: October 26, 2020 Subjective Resting comfortably. She's had morphine x 2 in the last 24 hours. Review of Systems Review of Systems: [place] Symptom Assessment Scale Pain 0/3 Dyspnea 0/3 Fatigue 2/3 Anxiety 1/3 Drowsiness 0/3 Palliative Performance Score 40% Physical Exam Constitutional: + frail appearing Respiratory: normal respiratory effort; no labored breathing Cardiovascular: Rate/Rhythm: regular rate and regular rhythm Musculoskeletal: Extremities: + muscle atrophy Results & Data ([facility]) Vital Signs (Past 12 Hours) Vital Signs Temp Pulse Pulse Resp BP Pulse Ox 10/30/20 07:32 98.6 F 103 H 20 175/77 H 93 10/30/20 06:56 92 H 10/30/20 04:00 98.6 F 96 H 18 161/86 H 94 10/30/20 00:00 98.6 F 98 H 20 153/74 H 94 PG Care Time/CCT Total # of Minutes Spent Total Time Spent with Patient: Total time spent is greater than 50% in coordination of care (as documented) at patient's floor/unit and/or counseling patient: Coding Level of Care Code 13727 Subseq Hosp Care Lvl 2 Diagnoses Palliative care encounter Z51.5 Constipation K59.00
--- NOTE | 2020-10-30 10:52 | Nephrology Progress Note ---
Date of Service October 30, 2020 Assessment & Plan (1) Hypertensive urgency: on amlodipine 10 mg hs, lasix 20 mg mwf, hydralazine 100 mg tid, spironolactone 25 mg daily; also on imdur 20 mg tid. w/ resistant HTN and negative w/u at last admission; she does have component of nephrotic syndrome as well. negative secondary w/o recently. Goal sbp is 140-150s -tachycardia/HTN in part I suspect to clonidine withdrawal and to med nonadherence, though she has had all her bp meds in house >>will try to avoid clonidine -trial also of coreg 3.25 mg bid w/ food ordered PM 10/29 -cont other bp meds as currently ordered -can give labetalol prn overnight SBP > 180 -control chest/ abd pain (2) Noncompliance with medication regimen: palliative following; for increased home support to improve this adn to reduce hospital readmission (3) CKD (chronic kidney disease), stage III: prior baseline had been 1.6-1.8 creatinine for advanced ckd 3, early ckd4 >> at baseline -daily bmp while in house -meds as above -proteinuria negative to date -not a candidate for dialysis or biopsy discussion in this clinical context even if need were to arise -continue to minimize/avoid nephrotoxins -avoid/minimize opiates Admission and Anticipated Discharge Date Admission Date: October 26, 2020 Subjective seen on rounds at 0740; eating breakfast, much more alert today; RN reports burrell placed yesterday w/ resolution of abd pain immediately; pt with 800 mL retained urine Review of Systems Review of Systems: All systems reviewed & are unremarkable except as noted in Subjective Respiratory: + dyspnea on exertion (stable chronic) Neurologic: + unsteadiness (stable chronic, though has hardly been out of bed) and + generalized weakness Physical Exam Constitutional: well developed, + thin and cooperative; no acute distress ENMT: Ears: no external ear abnormality Nose: no external nose abnormality Mouth: + dry oral mucous membranes Neck: no nuchal rigidity Respiratory: normal respiratory effort Auscultation: lungs clear to a uscultation bilaterally and + diminished lung sounds Cardiovascular: Rate/Rhythm: regular rhythm and + tachycardic Extremities: no edema Gastrointestinal (Abdomen): Inspection/Auscultation: normal bowel sounds Percussion/Palpation: abdomen soft; abdomen nontender and no guarding Musculoskeletal: Extremities: + abnormal strength (generalized weakness) Skin: no rashes, warm and dry Neurologic: carrington, fluent speech, no tremor Psychiatric: A+Ox3, euthymic affect Genitourinary: burrell w/ ample urine lt yellow Results & Data ([facility]) Vital Signs (Past 12 Hours) Vital Signs Temp Pulse Pulse Resp BP Pulse Ox 10/30/20 07:32 37 C 103 H 20 175/77 H 93 10/30/20 06:56 92 H 10/30/20 04:00 37 C 96 H 18 161/86 H 94 10/30/20 00:00 37 C 98 H 20 153/74 H 94 Laboratory Results 10/30/20 05:41 10/30/20 05:41 (1) CKD (chronic kidney disease), stage III Chronic kidney disease stage 3 subtype: stage 3b (GFR 30-44) Qualified Code(s): N18.32 - Chronic kidney disease, stage 3b
[2020-10-30] MEDS ORDERED: ONDANSETRON INJ 2 MG/ML 2 ML VIAL IV PRN (12:32)
[2020-10-30] MEDS ORDERED: MoRPHine SULFATE 5 MG/0.25 ML UDP PO STA (13:35)
[2020-10-30] MEDS ORDERED: SODIUM CHLORIDE 0.9% 500 ML IV SCH (14:45)
[2020-10-30] MEDS ORDERED: HYDROmorphone INJ 0.5 MG/0.5 ML SYR IV STA (14:47)
[2020-10-30 15:12] LABS: BUN Creatinine Ratio 23.6 (10-20); Calcium 7.9 mg/dl (8.5-10.1); Est GFR (Non-African American) 25.9 ml/min; Potassium 4.6 mmol/L (3.5-5.1)
--- NOTE | 2020-10-30 15:13 | Hospitalist Progress Note ---
Date of Service October 30, 2020 Assessment & Plan (1) Hypertensive urgency: Readmission for hypertensive urgency. Noted discontinuation of clonidine recently. Nephro following and BP improved on recently started spironolactone and coreg. (2) Abdominal discomfort: Recent hospitalization for hematochezia thought secondary to ischemic colitis. Worsened generalized abdominal pain today, improved with dilaudid. CT a/p with IV contrast unrevealing for cause of pain. Lactate is negative. She is tolerating PO. No documented BM for several days. Will cont scheduled Sennakot and add scheduled miralax. Suppository PRN. Consult GI for assistance with etiology of pain. (3) Chest pain: Presented with chest pain--this is actually moreso her abdominal pain. No significant EKG changes and troponin remains negative Pain thought secondary to hypertensive urgency Isosorbide was increased to 20 mg 3 times daily for chest pain and also to control blood pressure CT chest wo contrast unremarkable. Improved effusions. (4) Acute urinary retention: Lu placed on 10/29 but abdominal discomfort continues. No apparent infection. (5) Nephrotic syndrome: Has nephrotic range proteinuria. Kidney function is around her baseline. Nephro consulted. (6) CKD (chronic kidney disease), stage III: As above (7) CHF due to valvular disease: chronic, Euvolemic, cont current diuretics including lasix and spironolactone. Echo with normal LVEF and mild abnormalities in August 2020. (8) DM type 2 (diabetes mellitus, type 2): We will put her on sliding scale insulin coverage (9) Chronic anticoagulation: h/o splenic infarction on Eliquis. No known documented atrial fibrillation. Splenic infarction not apparent on CT scan. (10) Abnormal involuntary movements: She has been ongoing involuntary movement involving whole of the body and extremities She has had evaluation by neurologist and has had relevant investigations without any definite cause for that (11) DVT prophylaxis: Eliquis DNR/DNI Dispo-uncertain at this time. DO [facility] Hospital[facility] Admission and Anticipated Discharge Date Admission Date: October 26, 2020 Subjective 89 yo F in and out of hospice in recent months and with multiple hospital readmissions presented just days after being discharged from the hospital for hypertensive urgency. Her medications were adjusted and she was home for only a day or so until she returned reporting chest pain/abdominal pain. She has been on intermittent morphine throughout the last couple of days and persistently has abdominal pain. Yesterday she was comfortable on morphine. Today she is tolerating p.o. but abdomen is exquisitely tender to palpation generally. She was prehydrated with normal saline in the setting of renal insufficiency and a CT of the abdomen pelvis with IV contrast was performed. No free air was present. There was no biliary or pancreatic ductal dilatation. Gallbladder was mildly distended. There was no evidence for bowel obstruction. Bilateral pleural effusions were seen right larger than left. Review of Systems Review of Systems: All systems reviewed & are unremarkable except as noted in Subjective Physical Exam Physical Exam: CONSTITUTIONAL: WNWD, vitals as above, generally somnolent EYES: normal n, no scleral icterus ENT: external ear and nose normal, MMM RESPIRATORY: clear to auscultation, no rales or wheezes, normal respiratory effort -some compromise to the exam as patient continued to moan and also was not taking deep breaths when asked. CARDIOVASCULAR: regular rate and rhythm, 3/6 KAIN, no gallops or rubs, no JVD, no peripheral edema GASTROINTESTINAL: soft, generalized discomfort-appears worse than yesterday, nondistended, some guarding present MUSCULOSKELETAL: strength 5/5 throughout, head is normocephalic and atraumatic SKIN: warm and dry NEUROLOGIC: CN 2-12 grossly intact, somnolent, normal speech PSYCHIATRIC: answering questions appropriately when prompted Results & Data Results & Data ([facility]) Vital Signs (Past 12 Hours) Vital Signs Temp Pulse Pulse Pulse Resp BP Pulse Ox 10/30/20 15:03 86 10/30/20 14:42 37.1 C 86 28 H 175/74 H 96 10/30/20 11:47 37.3 C 88 17 166/87 H 94 10/30/20 07:32 37 C 103 H 20 175/77 H 93 10/30/20 06:56 92 H 10/30/20 04:00 37 C 96 H 18 161/86 H 94 Laboratory Results Short CBC 10/30/20 Range/Units 05:41 WBC 10.87 H (4.8-10.8) K/uL Hgb 10.7 L (12.0-16.0) g/dL Hct 33.2 L (37-47) % Plt Count 413 H (130-400) K/uL BMP 10/30/20 05:41 Sodium 133 L Potassium 3.2 L D Chloride 100 Carbon Dioxide 26 BUN 38 H Creatinine 1.61 H Glucose 124 H Calcium 8.3 L Medications Administered Current Inpatient Medications Amlodipine Besylate (Amlodipine Besylate 5 Mg Tab) 10 mg PO HS WYATT Stop: 11/26/20 20:59 Last Admin: 10/29/20 20:23 Dose: 10 mg Documented by: Apixaban (Apixaban 2.5 Mg Tab) 2.5 mg PO BID WYATT Stop: 11/25/20 20:59 Last Admin: 10/30/20 07:36 Dose: 2.5 mg Documented by: Atorvastatin Calcium (Atorvastatin 20 Mg Tab) 20 mg PO QAM WYATT Stop: 11/26/20 08:59 Last Admin: 10/30/20 07:35 Dose: 20 mg Documented by: Carvedilol (Carvedilol 3.125 Mg Tab) 3.125 mg PO BID WYATT Stop: 11/28/20 20:59 Last Admin: 10/30/20 07:35 Dose: 3.125 mg Documented by: Dextrose (Dextrose 50% 50 Ml Syringe) 25 - 50 ml IV UD PRN; Protocol PRN Reason: Hypoglycemia Protocol Stop: 11/25/20 19:14 Furosemide (Furosemide 20 Mg Tab) 20 mg PO MoWeFr@0900 WYATT Stop: 11/26/20 08:59 Last Admin: 10/29/20 08:20 Dose: 20 mg Documented by: Glucagon (Glucagon For Inj 1 Mg Vial) 1 mg IM UD PRN; Protocol PRN Reason: Hypoglycemia Protocol Stop: 11/25/20 19:14 Glucose (Glucose 40% Gel 15 Gm Tube) 15 - 30 gm PO UD PRN; Protocol PRN Reason: Hypoglycemia Protocol Stop: 11/25/20 19:14 Glucose (Glucose 10 Tabs/Tube) 4 - 8 tabs PO UD PRN; Protocol PRN Reason: Hypoglycemia Protocol Stop: 11/25/20 19:14 Hydralazine HCl (Hydralazine Tab 50 Mg Tab) 100 mg PO TID WYATT Stop: 11/25/20 20:59 Last Admin: 10/30/20 14:44 Dose: 100 mg Documented by: Sodium Chloride (Nss) 500 mls @ 125 mls/hr IV .Q4H WYATT Stop: 10/30/20 18:44 Last Admin: 10/30/20 14:44 Dose: 125 mls/hr Documented by: Sodium Chloride (Nss 1000ml) 1,000 mls @ 80 mls/hr IV .[id number] [facility] Stop: 10/31/20 08:29 Insulin Aspart (Insulin Aspart 100 Units/Ml 3 Ml Pen) 0 units SC ACHS [facility] Stop: 11/25/20 20:59 Last Admin: 10/30/20 12:20 Dose: 3 units Documented by: Isosorbide Dinitrate (Isosorbide Dinitrate 20 Mg Tab) 20 mg PO TID@0700,1200,1700 [facility] Stop: 11/25/20 20:59 Last Admin: 10/30/20 12:20 Dose: 20 mg Documented by: Lidocaine (Lidocaine 5% 1 Patch) 1 patch TD QAM [facility] Stop: 11/26/20 12:14 Last Admin: 10/30/20 08:12 Dose: Not Given Documented by: Lorazepam (Lorazepam 1 Mg Tab) 1 mg SL Q8H PRN PRN Reason: Muscle Spasm Stop: 11/25/20 17:59 Last Admin: 10/29/20 11:29 Dose: 1 mg Documented by: Miscellaneous (Carbohydrates For Hypoglycemia ) 15 - 30 gm PO UD PRN PRN Reason: Hypoglycemia Treatment Stop: 11/25/20 19:14 Miscellaneous (Remove Lidoderm Patch) 1 ea N/A DAILY@2100 [facility] Stop: 11/26/20 20:59 Last Admin: 10/29/20 20:30 Dose: 1 ea Documented by: Morphine Sulfate (Morphine Sulfate 5 Mg/0.25 Ml Udp) 5 mg PO Q4H PRN PRN Reason: Pain Stop: 11/13/20 13:34 Ondansetron HCl (Ondansetron Inj 2 Mg/Ml 2 Ml Vial) 4 mg IV Q8H PRN PRN Reason: NAUSEA & VOMITING Stop: 11/29/20 12:44 Pantoprazole Sodium (Pantoprazole 40 Mg Tab) 40 mg PO DAILYBB [facility] Stop: 11/26/20 06:29 Last Admin: 10/30/20 05:44 Dose: 40 mg Documented by: Senna/Docusate Sodium (Docusate Sodium/Senna 50/8.6mg Tab) 1 tab PO BID [facility] Stop: 11/25/20 20:59 Last Admin: 10/30/20 07:35 Dose: 1 tab Documented by: Spironolactone (Spironolactone 25 Mg Tab) [facility] Stop: 11/26/20 08:59 Last Admin: 10/30/20 07:47 Dose: 25 mg Documented by: (1) CKD (chronic kidney disease), stage III Chronic kidney disease stage 3 subtype: stage 3b (GFR 30-44) Qualified Code(s): N18.32 - Chronic kidney disease, stage 3b (2) Chest pain Chest pain type: unspecified Qualified Code(s): R07.9 - Chest pain, unspecified
[2020-10-30] MEDS ORDERED: SODIUM CHLORIDE 0.9% 1000ML 1,000 ML IV SCH (20:00)
[2020-10-30] MEDS ORDERED: OPTIRAY 320 100ml IV ONE (20:12)
--- NOTE | 2020-10-30 20:58 | CT Scan Report ---
CT OF THE ABDOMEN AND PELVIS WITH CONTRAST CLINICAL HISTORY: severe generalized abdominal pain COMPARISON STUDY: CT of the abdomen and pelvis and right upper quadrant ultrasound 10/13/2020. TECHNIQUE: Following IV administration of 95 mL of Optiray, axial images of the abdomen and pelvis we re obtained from the lung bases to the proximal femurs. Images were reviewed in the axial, sagittal, and coronal planes. IV contrast was administered without complication. Automated exposure control wa s utilized for the study. A dose lowering technique was utilized adhering to the principles of ALARA . CT DOSE: 357.21 mGycm FINDINGS: Bilateral pleural effusions, right larger left, are noted. There is associated atelectasis. Cardiomegaly is noted. There is a small hiatal hernia. No pneumatosis, free air or portal venous gas is present. Exam is mildly compromised by motion artifact. There is no biliary or pancreatic ductal dilatation. No hepatic lesions are present. The spleen and adrenal glands as well as the right kidney are unremarkable. Marked left renal atrophy. Gallbladder is mildly distended. There is no evidence f or a bowel obstruction. Caliber and wall thickness of small and large bowel are normal. A Lu ballo on within the bladder is present. No acute fracture is identified within visualized skeletal structur es. The appendix is not visualized. There is no right lower quadrant inflammation. IMPRESSION: 1. Exam mildly compromised by motion artifact. No evidence for a bowel obstruction. 2. Bilateral pleural effusions, right larger than left. 3. Mild gallbladder distention. 4. Marked left renal atrophy. ACT 112: Negative or not required by law. Electronically signed by: Randall Drummond M.D. 10/30/2020 8:56 PM
[2020-10-30] MEDS: amLODIPine BESYLATE 5 MG TAB PO SCH (21:35)
[2020-10-31] MEDS ORDERED: GLYCERIN ADULT 12 SUPP/BOX SUPP PR PRN (00:38)
[2020-10-31] MEDS: PANTOprazole 40 MG TAB PO SCH (06:48)
[2020-10-31] MEDS: ISOSORBIDE DINITRATE 20 MG TAB PO SCH ×3 (06:49→17:09)
--- NOTE | 2020-10-31 09:16 | Gastrointestinal Consultation ---
Date of Consultation October 31, 2020 Assessment & Plan (1) Constipation: 89 year old female with report generalized, severe abd pain explained as severe bloating/fullness/pressure with worsening constipation. CTAP w/o acute changes. Diet as tolerated Continue PO PPI daily Increase bowel regimen Colace 100 mg twice daily Miralax 2 capfuls twice daily Senna PRN Can discuss further imaging, endoscopy with attending and pt/family wishes given palliative/hospice history Thank you for allowing us to participate in the care of this patient. Please call with any acute changes, questions or concerns. Please see addendum below with additional recommendation from my supervising physician. Supervising Physician Co-Signing Physician Notes Attending attestation I have seen, examined this patient, and agree with the findings and above by our mid-level provider Ms. Kristi BELTRAN, with the following additions: - Patient with poor quality CT scan, however, difficult history to obtain has c/o pain, but then gets distracted and soft abdomen on exam - Bowel regimen and follow symptoms - Call with questions History of Present Illness Reason for Consultation: abd pain Requesting Physician: Sherice Attending Physician: Kaila Hood DO History of Present Illness 89 year old female with history of T2DM, COPD, chronic bronchitis, CAD, Valvular heart disease, CHF, HTN, GERD, PE, splenic infarct, renal artery stenosis who presented through the ED for abdominal pain - GI asked to evaluate. Reports she has generalized abdominal pain explained as pressure, fullness and bloating. This is severe, 10/10 and constant. She notes history of chronic constipation as well. Typically moves her bowels every 4/5 days. Recently had worsening constipation and she cannot recall when her last bowel movement was. Denies any recent black or bloody stools. This AM she notes despite her pain that she just wants to go home. CTAP 2020: Exam mildly compromised by motion artifact. No evidence for a bowel obstruction.Bilateral pleural effusions, right larger than left. Mild gallbladder distention. ABD US 2020: There is biliary sludge. No shadowing gallstones are identified and there is no sonographic evidence of acute cholecystitis. Trace right pleural effusion. CTAP 2020: Gallbladder is fluid-filled without intraluminal calculi to suggest cholelithiasis. Limited exam. Further evaluation with gallbladder ultrasound might be considered if clinically indicated. Redemonstration of atrophic left kidney. Questionable focal thickening of inferior urinary bladder wall, could be artifactual due to motion artifact or represent urinary bladder wall lesion. Please correlate above-mentioned findings was prior history. Urinary bladder ultrasound might be considered for further characterization if clinically indicated. Previously seen splenic infarct appear less conspicuous. Atherosclerosis. Hiatal hernia. Allergies Allergy/AdvReac Type Severity Reaction Status Date / Time Penicillins Allergy Intermediate Rash Verified 10/26/20 16:38 Quinolones Allergy Intermediate Rash Verified 10/26/20 16:38 aspirin AdvReac Mild burning in Verified 10/26/20 16:38 stomach Home Medications Medication Instructions Recorded Confirmed Type amlodipine 10 mg PO HS 03/31/19 10/26/20 History atorvastatin 20 mg PO QAM #30 tab 04/12/19 10/26/20 Rx hydralazine 100 mg PO TID #90 tab 04/12/19 10/26/20 Rx pantoprazole 40 mg PO DAILYBB 09/06/20 10/26/20 History sennosides-docusate sodium [Senna 1 tab-cap PO BID 09/06/20 10/26/20 History with Docusate Sodium] isosorbide dinitrate 10 mg PO TID 09/26/20 10/26/20 History furosemide [Lasix] 20 mg PO UD #0 tab 10/24/20 10/26/20 Rx spironolactone 25 mg PO QAM 30 Days #30 tab 10/24/20 10/26/20 Rx apixaban [Eliquis] 2.5 mg PO BID 10/26/20 10/26/20 History Patient History Medical History Atrophy of left kidney Chest pain CHF due to valvular disease Coronary artery disease DM type 2 (diabetes mellitus, type 2) Do not resuscitate status Dyslipidemia Goals of care, counseling/discussion LBBB (left bundle branch block) Mild aortic stenosis Mild mitral stenosis Mitral regurgitation Nephrotic syndrome Palliative care encounter Severe protein-calorie malnutrition Subclavian arterial stenosis Weakness Surgical History H/O repair of left rotator cuff H/O varicose vein stripping History of appendectomy History of hysterectomy History of stent insertion of renal artery R renal artery; 2020 in [facility] Family History Denies family history of Kidney disease Social History Smoking Status: Former smoker Tobacco Type: Cigarettes Do You Dip or Chew Tobacco: No; Hx Alcohol Use: No Hx Substance Use: No Preferred Language: P[place]in[place] 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 Ability: Effective Relief Map Modeler Required: No Beliefs That Will Affect Care: None marital status: / Current Living Situation: Family Current Living Situation Comment: lives w/ dtr Other Information That Helps Us Care for You: No Feels Safe at Home: Yes Safety Concerns: Feels Safe At This Time Assistive Devices: Walker Review of Systems Review of Systems: All systems reviewed & are unremarkable except as noted in HPI & below Physical Exam Constitutional: WD/WN, vitals as above + ill appearing (chronically ill appearing) and + thin; no acute distress Neck: trachea midline, no thyromegaly Respiratory: normal respiratory effort; no respiratory distress and no labored breathing Cardiovascular: Rate/Rhythm: regular rate and regular rhythm Gastrointestinal (Abdomen): normal bowel sounds, soft, nontender, no hepatosplenomegaly Skin: no rashes, warm and dry Results & Data ([facility]) Vital Signs (Past 12 Hours) Vital Signs Temp Pulse Pulse Pulse Resp BP Pulse Ox 10/31/20 07:52 36.8 C 83 20 183/78 H 89 L 10/31/20 04:00 36.9 C 79 20 169/79 H 92 10/30/20 23:07 36.5 C 81 22 146/69 H 92 10/30/20 22:35 88 10/30/20 21:26 87 22 168/74 H 93 Laboratory Results 10/31/20 10/30/20 10/30/20 Range/Units 07:04 20:50 16:04 Sodium (136-145) mmol/L Potassium (3.5-5.1) mmol/L Chloride (98-107) mmol/L Carbon Dioxide (21-32) mmol/L Anion Gap (3-11) BUN (7-18) mg/dl Creatinine (0.6-1.2) mg/dl Est Cr Clr Drug Dosing ml/min Est GFR ( Amer) ml/min Est GFR (Non-Af Amer) ml/min BUN/Creatinine Ratio (10-20) Glucose (70-99) mg/dl POC Glucose 116 H 138 H 149 H (70-99) mg/dl Lactate (0.4-2.0) mmol/L Calcium (8.5-10.1) mg/dl 10/30/20 10/30/20 10/30/20 Range/Units 14:34 14:34 11:26 Sodium 130 L (136-145) mmol/L Potassium 4.6 D (3.5-5.1) mmol/L Chloride 100 (98-107) mmol/L Carbon Dioxide 25 (21-32) mmol/L Anion Gap 5.0 (3-11) BUN 41 H (7-18) mg/dl Creatinine 1.72 H (0.6-1.2) mg/dl Est Cr Clr Drug Dosing 19.0 ml/min Est GFR ( Amer) 30.0 ml/min Est GFR (Non-Af Amer) 25.9 ml/min BUN/Creatinine Ratio 23.6 H (10-20) Glucose 150 H (70-99) mg/dl POC Glucose 144 H (70-99) mg/dl Lactate 0.9 (0.4-2.0) mmol/L Calcium 7.9 L (8.5-10.1) mg/dl
[2020-10-31] MEDS: APIXABAN 2.5 MG TAB PO SCH ×2 (09:29→20:28)
[2020-10-31] MEDS: hydrALAZINE TAB 50 MG TAB PO SCH ×3 (09:29→20:29)
[2020-10-31] MEDS: carvediloL 3.125 MG TAB PO SCH (09:29)
[2020-10-31] MEDS: POLYETHYLENE (MIRALAX) 17 GM PACK PO SCH ×2 (09:30→17:10)
[2020-10-31] MEDS: DOCUSATE SODIUM/SENNA 50/8.6MG TAB PO SCH ×2 (09:30→20:30)
[2020-10-31] MEDS: ATORVASTATIN 20 MG TAB PO SCH (09:30)
[2020-10-31] MEDS: LIDOCAINE 5% 1 PATCH TD SCH (09:30)
[2020-10-31] MEDS: INSULIN ASPART 100 UNITS/ML 3 ML PEN SC SCH ×4 (09:39→20:33)
[2020-10-31 10:13] LABS: BUN Creatinine Ratio 19.4 (10-20); Calcium 7.7 mg/dl (8.5-10.1); Est GFR (African American) 29.6 ml/min; Est GFR (Non-African American) 25.5 ml/min; Potassium 4.5 mmol/L (3.5-5.1)
[2020-10-31] MEDS: MoRPHine SULFATE 5 MG/0.25 ML UDP PO PRN ×3 (11:23→18:09)
[2020-10-31] MEDS: HYDROmorphone INJ 0.5 MG/0.5 ML SYR IV PRN (14:39)
--- NOTE | 2020-10-31 15:18 | Nephrology Progress Note ---
Date of Service October 31, 2020 Assessment & Plan (1) Hypertensive urgency: on amlodipine 10 mg hs, lasix 20 mg mwf, hydralazine 100 mg tid, spironolactone 25 mg daily; also on imdur 20 mg tid. w/ resistant HTN and negative w/u at last admission; she does have component of nephrotic syndrome as well. negative secondary w/o recently. Goal sbp is 140-150s -tachycardia/HTN in part I suspect to clonidine withdrawal and to med nonadherence, though she has had all her bp meds in house>>tachycardia resolved; HTN may be pain >>will try to avoid clonidine -trial also of coreg 3.25 mg bid w/ food ordered PM 10/29 >> increased to 6.25 mg bid on 10/31 PM -cont other bp meds as currently ordered > can resume lasix, spironolactone tomorrow pm if renal function holds -can give labetalol prn overnight SBP > 180 -control chest/ abd pain (2) Noncompliance with medication regimen: palliative following; for increased home support to improve this adn to reduce hospital readmission (3) CKD (chronic kidney disease), stage III: prior baseline had been 1.6-1.8 creatinine for advanced ckd 3, early ckd4 >> at baseline; 1.7 creat today > contrast induced nephropathy can emerge even tomorrow pm; would cont to follow -will give another L of 1/2 NS (avoiding NS d/t HTN); may worsen sodium but will cont to follow -daily bmp while in house -meds as above -proteinuria negative to date -not a candidate for dialysis or biopsy discussion in this clinical context even if need were to arise -continue to minimize/avoid nephrotoxins -use opiates as needed recognizing renal function may cause accumulation; I added colace and psyllium to bowel regimen - last bm 10/28 Admission and Anticipated Discharge Date Admission Date: October 26, [address] w/o overt bowel ischemia; diuretics on hold and has 1.5 L IVF d/t IV contrast; granddaughter bedside > had dilaudid/roxanol today > had 1L NS; last bm 10/01 Review of Systems Review of Systems: All systems reviewed & are unremarkable except as noted in Subjective Physical Exam Constitutional: well developed, + acute distress (moaning w/ abd pain), + thin and cooperative ENMT: Ears: no external ear abnormality Nose: no external nose abnormality Mouth: + dry oral mucous membranes Neck: no nuchal rigidity Respiratory: normal respiratory effort Auscultation: lungs clear to auscultation bilaterally and + diminished lung sounds Cardiovascular: Rate/Rhythm: regular rate and regular rhythm Extremities: no edema Gastrointestinal (Abdomen): Inspection/Auscultation: normal bowel sounds Percussion/Palpation: abdomen soft; abdomen nontender and no guarding Musculoskeletal: Extremities: + abnormal strength (generalized weakness) Skin: no rashes, warm and dry Neurologic: carrington Psychiatric: Orientation: alert and oriented x 3 Speech: normal rate/rhythm/volume of speech Affect: + anxious affect Results & Data ([facility]) Vital Signs (Past 12 Hours) Vital Signs Temp Pulse Resp BP Pulse Ox 10/31/20 11:48 36.9 C 78 18 170/82 H 91 10/31/20 07:52 36.8 C 83 20 183/78 H 89 L 10/31/20 04:00 36.9 C 79 20 169/79 H 92 Laboratory Results 10/30/20 05:41 10/31/20 09:[address] IV w/ abd/pelv 10/30 1. Exam mildly compromised by motion artifact. No evidence for a bowel obstruction. 2. Bilateral pleural effusions, right larger than left. 3. Mild gallbladder distention. 4. Marked left renal atrophy. (1) CKD (chronic kidney disease), stage III Chronic kidney disease stage 3 subtype: stage 3b (GFR 30-44) Qualified Code(s): N18.32 - Chronic kidney disease, stage 3b
[2020-10-31] MEDS ORDERED: SODIUM CHLORIDE 0.45 % 1,000 ML IV SCH (15:30)
--- NOTE | 2020-10-31 18:14 | Hospitalist Progress Note ---
Date of Service October 31, 2020 Assessment & Plan (1) Hypertensive urgency: Readmission for hypertensive urgency. Noted discontinuation of clonidine at recent discharge. Nephro following and BP improved on recently started spironolactone and coreg. Cont hydralazine 100mg TID, Isordil TID, spi ronolactone 25, coreg 6.25mg BID. Cont pain control efforts. (2) Abdominal discomfort: Recent hospitalization for hematochezia thought secondary to ischemic colitis. Worsened generalized abdominal pain prompted further investigation with CT a/p with IV contrast. This was unrevealing for cause of pain. Lactate is negative. She is tolerating PO. Constipation is improved with laxatives, stool softeners. Will cont this now. Also start simethicone scheduled and add scheduled Tylneol to take the edge off the pain and lessen the need for narcotics which will increase the bloating and discomfort. (3) Chest pain: Presented with chest pain--this is actually moreso her abdominal pain. No significant EKG changes and troponin remains negative Pain thought secondary to hypertensive urgency Isosorbide was increased to 20 mg 3 times daily for chest pain and also to control blood pressure CT chest wo contrast unremarkable. Improved effusions. (4) Acute urinary retention: Lu placed on 10/29 but abdominal discomfort continues. No apparent infection. TOV in next 1-2 days now that feeling better. (5) Nephrotic syndrome: Has nephrotic range proteinuria. Kidney function is around her baseline. Nephro consulted. Will need outpatient followup in CKD clinic. (6) CKD (chronic kidney disease), stage III: As above (7) CHF due to valvular disease: chronic, Euvolemic, cont current diuretics including lasix and spironolactone. Echo with normal LVEF and mild abnormalities in August 2020. (8) DM type 2 (diabetes mellitus, type 2): cont current insulin coverage. at goal (9) Chronic anticoagulation: h/o splenic infarction on Eliquis. No known documented atrial fibrillation. Splenic infarction not apparent on CT scan. Followup with PCP. (10) Abnormal involuntary movements: She has been ongoing involuntary movement involving whole of the body and extremities She has had evaluation by neurologist and has had relevant investigations without any definite cause for that This has resolved. (11) DVT prophylaxis: [place] DNR/DNI Dispo-uncertain at this time. PT/OT to evaluate for home and continue to work with her. Need to get as much help in place for daughter as possible as patient has been readmitted several times this year already. DO Jyoti Haro Hospitalist Admission and Anticipated Discharge Date Admission Date: October 26, 2020 Subjective 89 yo F in and out of hospice in recent months and with multiple hospital readmissions presented just days after being discharged from the hospital for hypertensive urgency. Her medications were adjusted and she was home for only a day or so until she returned reporting chest pain/abdominal pain. She has been on intermittent morphine throughout the last couple of days and persistently has abdominal pain. GI saw her today and she gives a picture of bloating vs pain. Responded well to morphine and miralax and she is doing better reporting no abdominal pain this afternoon. Granddaughter at bedside and discussed assessement and plan with her and patient's daughter by phone. Patient is finally eating a full meal without issue and BP is better controlled. Review of Systems Review of Systems: All systems reviewed & are unremarkable except as noted in Subjective Physical Exam Physical Exam: CONSTITUTIONAL: WNWD, vitals as above, generally somnolent EYES: normal n, no scleral icterus ENT: external ear and nose normal, MMM RESPIRATORY: some crackles at the bases, no rales or wheezes, normal respiratory effort CARDIOVASCULAR: regular rate and rhythm, 3/6 KAIN, no gallops or rubs, no JVD, no peripheral edema GASTROINTESTINAL: soft, nontender, nondistended, no guarding. MUSCULOSKELETAL: strength 5/5 throughout, head is normocephalic and atraumatic SKIN: warm and dry NEUROLOGIC: CN 2-12 grossly intact, somnolent, normal speech PSYCHIATRIC: alert and appropriate. Results & Data Results & Data ([facility]) Vital Signs (Past 12 Hours) Vital Signs Temp Pulse Resp BP Pulse Ox 10/31/20 15:36 36.8 C 71 18 166/70 H 90 10/31/20 11:48 36.9 C 78 18 170/82 H 91 10/31/20 07:52 36.8 C 83 20 183/78 H 89 L Laboratory Results [facility] 10/31/20 09:41 Sodium 130 L Potassium 4.5 Chloride 101 Carbon Dioxide 23 BUN 34 H Creatinine 1.74 H Glucose 214 H Calcium 7.7 L Medications Administered Current Inpatient Medications Amlodipine Besylate (Amlodipine Besylate 5 Mg Tab) 10 mg PO HS [facility] Stop: 11/26/20 20:59 Last Admin: 10/30/20 21:35 Dose: 10 mg Documented by: Apixaban (Apixaban 2.5 Mg Tab) 2.5 mg PO BID [facility] Stop: 11/25/20 20:59 Last Admin: 10/31/20 09:29 Dose: 2.5 mg Documented by: Atorvastatin Calcium (Atorvastatin 20 Mg Tab) 20 mg PO QAM [facility] Stop: 11/26/20 08:59 Last Admin: 10/31/20 09:30 Dose: 20 mg Documented by: Carvedilol (Carvedilol 6.25 Mg Tab) 6.25 mg PO BID [facility] Stop: 11/30/20 20:59 Dextrose (Dextrose 50% 50 Ml Syringe) 25 - 50 ml IV UD PRN; Protocol PRN Reason: Hypoglycemia Protocol Stop: 11/25/20 19:14 Docusate Sodium (Docusate Sodium 100 Mg Cap) 100 mg PO BID [facility] Stop: 11/30/20 20:59 Furosemide (Furosemide 20 Mg Tab) 20 mg PO MoWeFr@0900 [facility] Stop: 11/26/20 08:59 Last Admin: 10/29/20 08:20 Dose: 20 mg Documented by: Glucagon (Glucagon For Inj 1 Mg Vial) 1 mg IM UD PRN; Protocol PRN Reason: Hypoglycemia Protocol Stop: 11/25/20 19:14 Glucose (Glucose 40% Gel 15 Gm Tube) 15 - 30 gm PO UD PRN; Protocol PRN Reason: Hypoglycemia Protocol Stop: 11/25/20 19:14 Glucose (Glucose 10 Tabs/Tube) 4 - 8 tabs PO UD PRN; Protocol PRN Reason: Hypoglycemia Protocol Stop: 11/25/20 19:14 Glycerin (Glycerin Adult 12 Supp/Box Supp) 1 supp MT DAILY PRN PRN Reason: Constipation Stop: 11/30/20 00:37 Hydralazine HCl (Hydralazine Tab 50 Mg Tab) 100 mg PO TID [facility] Stop: 11/25/20 20:59 Last Admin: 10/31/20 14:39 Dose: 100 mg Documented by: Hydromorphone HCl (Hydromorphone Inj 0.5 Mg/0.5 Ml Syr) 0.5 mg IV Q4H PRN PRN Reason: severe abdominal pain Stop: 11/14/20 00:32 Last Admin: 10/31/20 14:39 Dose: 0.5 mg Documented by: Sodium Chloride (1/2 Nss) 1,000 mls @ 80 mls/hr IV .[id number] [facility] Stop: 11/01/20 03:59 Last Admin: 10/31/20 16:30 Dose: 80 mls/hr Documented by: Insulin Aspart (Insulin Aspart 100 Units/Ml 3 Ml Pen) 0 units SC ACHS [facility] Stop: 11/25/20 20:59 Last Admin: 10/31/20 17:11 Dose: 3 units Documented by: Isosorbide Dinitrate (Isosorbide Dinitrate 20 Mg Tab) 20 mg PO TID @0700,1200,1700 [facility] Stop: 11/25/20 20:59 Last Admin: 10/31/20 17:09 Dose: 20 mg Documented by: Lidocaine (Lidocaine 5% 1 Patch) 1 patch TD QAM [facility] Stop: 11/26/20 12:14 Last Admin: 10/31/20 09:30 Dose: 1 patch Documented by: Lorazepam (Lorazepam 1 Mg Tab) 1 mg SL Q8H PRN PRN Reason: Muscle Spasm Stop: 11/25/20 17:59 Last Admin: 10/29/20 11:29 Dose: 1 mg Documented by: Miscellaneous (Carbohydrates For Hypoglycemia ) 15 - 30 gm PO UD PRN PRN Reason: Hypoglycemia Treatment Stop: 11/25/20 19:14 Miscellaneous (Remove Lidoderm Patch) 1 ea N/A DAILY@2100 [facility] Stop: 11/26/20 20:59 Last Admin: 10/30/20 21:49 Dose: 1 ea Documented by: Morphine Sulfate (Morphine Sulfate 5 Mg/0.25 Ml Udp) 5 mg PO Q4H PRN PRN Reason: Pain Stop: 11/13/20 13:34 Last Admin: 10/31/20 18:09 Dose: 5 mg Documented by: Ondansetron HCl (Ondansetron Inj 2 Mg/Ml 2 Ml Vial) 4 mg IV Q8H PRN PRN Reason: NAUSEA & VOMITING Stop: 11/29/20 12:44 Last Admin: 10/30/20 23:42 Dose: 4 mg Documented by: Pantoprazole Sodium (Pantoprazole 40 Mg Tab) 40 mg PO DAILYBB [facility] Stop: 11/26/20 06:29 Last Admin: 10/31/20 06:48 Dose: 40 mg Documented by: Polyethylene Glycol (Polyethylene (Miralax) 17 Gm Pack) 17 gm PO BID17 [facility] Stop: 11/30/20 08:59 Last Admin: 10/31/20 17:10 Dose: 17 gm Documented by: Psyllium Hydrophilic Mucilloid (Psyllium 58.6% Powder Packet) 1 pkt PO QAM [facility] Stop: 11/30/20 17:29 Senna/Docusate Sodium (Docusate Sodium/Senna 50/8.6mg Tab) 1 tab PO BID [facility] Stop: 11/25/20 20:59 Last Admin: 10/31/20 09:30 Dose: 1 tab Documented by: Spironolactone (Spironolactone 25 Mg Tab) 25 mg PO QAM [facility] Stop: 11/26/20 08:59 Last Admin: 10/30/20 07:47 Dose: 25 mg Documented by: (1) CKD (chronic kidney disease), stage III Chronic kidney disease stage 3 subtype: stage 3b (GFR 30-44) Qualified Code(s): N18.32 - Chronic kidney disease, stage 3b (2) Chest pain Chest pain type: unspecified Qualified Code(s): R07.9 - Chest pain, unspecified
[2020-10-31] MEDS: ACETAMINOPHEN 500 MG TAB PO SCH (19:28)
[2020-10-31] MEDS: SIMETHICONE 80 MG CHEW PO SCH (19:28)
[2020-10-31] MEDS: PSYLLIUM 58.6% POWDER PACKET PO SCH (19:30)
[2020-10-31] MEDS: amLODIPine BESYLATE 5 MG TAB PO SCH (20:29)
[2020-10-31] MEDS: carvediloL 6.25 MG TAB PO SCH (20:30)
[2020-10-31] MEDS: DOCUSATE SODIUM 100 MG CAP PO SCH (20:36)
[2020-11-01] MEDS: SIMETHICONE 80 MG CHEW PO SCH ×4 (02:43→20:14)
[2020-11-01] MEDS: PANTOprazole 40 MG TAB PO SCH (05:50)
[2020-11-01] MEDS: ACETAMINOPHEN 500 MG TAB PO SCH ×3 (05:50→20:14)
[2020-11-01] MEDS: ISOSORBIDE DINITRATE 20 MG TAB PO SCH ×3 (07:12→18:17)
[2020-11-01] MEDS: APIXABAN 2.5 MG TAB PO SCH ×2 (09:48→20:16)
[2020-11-01] MEDS: hydrALAZINE TAB 50 MG TAB PO SCH ×3 (09:48→20:17)
[2020-11-01] MEDS: ATORVASTATIN 20 MG TAB PO SCH (09:49)
[2020-11-01] MEDS: carvediloL 6.25 MG TAB PO SCH ×2 (09:51→20:16)
[2020-11-01] MEDS: POLYETHYLENE (MIRALAX) 17 GM PACK PO SCH ×2 (09:52→18:17)
[2020-11-01] MEDS: PSYLLIUM 58.6% POWDER PACKET PO SCH (09:52)
[2020-11-01] MEDS: DOCUSATE SODIUM 100 MG CAP PO SCH ×2 (09:53→20:16)
[2020-11-01] MEDS: DOCUSATE SODIUM/SENNA 50/8.6MG TAB PO SCH ×2 (09:53→20:17)
[2020-11-01] MEDS: INSULIN ASPART 100 UNITS/ML 3 ML PEN SC SCH ×4 (10:06→21:21)
[2020-11-01] MEDS: LIDOCAINE 5% 1 PATCH TD SCH (10:07)
[2020-11-01 10:11] LABS: Basophils # (auto) 0.03 K/uL (0-0.2); Basophils % (auto) 0.3 %; Eosinophils % (auto) 4.4 %; Hematocrit (blood only) 32.6 % (37-47); Hemoglobin 10.5 g/dL (12.0-16.0); Immature Granulocytes # (auto) 0.12 K/uL (0.00-0.02); Immature Granulocytes % (auto) 1.3 %; Lymphocytes # (auto) 1.79 K/uL (1.2-3.4); Lymphocytes % (auto) 19.8 %; Mean Corpuscular Hemoglobin 24.1 pg (25-34); Mean Corpuscular Hgb Conc 32.2 g/dL (32-36); Mean Corpuscular Volume 74.9 fL (80-100); Mean Platelet Volume 8.3 fL (7.4-10.4); Monocytes # (auto) 0.21 K/uL (0.11-0.59); Monocytes % (auto) 2.3 %; Neutrophils # (auto) 6.47 K/uL (1.4-6.5); Neutrophils % (auto) 71.9 %; Platelet Count 355 K/uL (130-400); RDW Coefficient of Variation 17.1 % (11.5-14.5); RDW Standard Deviation 46.4 fL (36.4-46.3); Red Blood Count 4.35 M/uL (4.2-5.4); White Blood Count 9.02 K/uL (4.8-10.8)
[2020-11-01 10:33] LABS: Creatinine Clr Calc Pharmacy 18.4 ml/min; Est GFR (African American) 26.3 ml/min; Est GFR (Non-African American) 22.7 ml/min; Potassium 4.6 mmol/L (3.5-5.1)
[2020-11-01] MEDS: HYDROmorphone INJ 0.5 MG/0.5 ML SYR IV PRN ×2 (14:23→20:43)
[2020-11-01] MEDS ORDERED: SPIRONOLACTONE 12.5 MG TAB PO ONE (14:23)
--- NOTE | 2020-11-01 14:32 | Hospitalist Progress Note ---
Date of Service November 01, 2020 Assessment & Plan (1) Hypertensive urgency: Readmission for hypertensive urgency. Noted discontinuation of clonidine at recent discharge. Nephro following and BP improved on recently started spironolactone and coreg. Cont hydralazine 100mg TID, Isordil TID, spi ronolactone 25, coreg 6.25mg BID. Cont pain control efforts. (2) Abdominal discomfort: Recent hospitalization for hematochezia thought secondary to ischemic colitis. Worsened generalized abdominal pain prompted further investigation with CT a/p with IV contrast. This was unrevealing for cause of pain. Lactate is negative. She is tolerating PO. Constipation is improved with laxatives, stool softeners. Will cont this now. Also start simethicone scheduled and add scheduled Tylneol to take the edge off the pain and lessen the need for narcotics which will increase the bloating and discomfort. (3) Chest pain: Presented with chest pain--this is actually moreso her abdominal pain. No significant EKG changes and troponin remains negative Pain thought secondary to hypertensive urgency Isosorbide was increased to 20 mg 3 times daily for chest pain and also to control blood pressure CT chest wo contrast unremarkable. Improved effusions. (4) Acute urinary retention: Lu placed on 10/29 but abdominal discomfort continues. No apparent infection. TOV in next 1-2 days now that feeling better. (5) Nephrotic syndrome: Has nephrotic range proteinuria. Kidney function is around her baseline. Nephro consulted. Will need outpatient followup in CKD clinic. (6) COPD (chronic obstructive pulmonary disease): chronic hypoxia, uses oxygen at home "as needed" per Jyoti Pulqiana note in September 2020. Here she has been on it continuously-consider two step prior to discharge home. Has a h/o smoking. Some crackles on exam, CXR pending. 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 Echo with normal LVEF and mild abnormalities in August 2020. (9) DM type 2 (diabetes mellitus, type 2): cont current insulin coverage. 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 No known documented atrial fibrillation. Splenic infarction not apparent on CT scan. Followup with PCP. (11) Abnormal involuntary movements: She has been ongoing involuntary movement involving whole of the body and extremities She has had evaluation by neurologist and has had relevant investigations without any definite cause for that This has resolved. (12) DVT prophylaxis: [place] DNR/DNI Dispo-uncertain at this time. PT/OT to evaluate for home and continue to work with her. Need to get as much help in place for daughter as possible as patient has been readmitted several times this year already. [facility] Admission and Anticipated Discharge Date Admission Date: October 26, 2020 Subjective 89 yo F in and out of hospice in recent months and with multiple hospital readmissions presented just days after being discharged from the hospital for hypertensive urgency. Her medications were adjusted and she was home for only a day or so until she returned reporting chest pain/abdominal pain. She has been on intermittent morphine throughout the last couple of days and persistently has abdominal pain. Continues to have no belly bloat or abdominal pain today. She is moving up and into the chair today for the first time in a while. She appears happy and encouraged. No issues with breathing or other pain. BP slightly high but several agents on hold. tolerating PO. Review of Systems Review of Systems: All systems reviewed & are unremarkable except as noted in Subjective Physical Exam Physical Exam: CONSTITUTIONAL: WNWD, vitals as above, NAD EYES: normal conjunctivae, no scleral icterus ENT: external ear and nose normal, MMM RESPIRATORY: some crackles throughout, no rales or wheezes, normal respiratory effort CARDIOVASCULAR: regular rate and rhythm, 3/6 KAIN, no gallops or rubs, no JVD, no peripheral edema GASTROINTESTINAL: soft, nontender, nondistended, no guarding. MUSCULOSKELETAL: strength 5/5 throughout, head is normocephalic and atraumatic SKIN: warm and dry NEUROLOGIC: CN 2-12 grossly intact, somnolent, normal speech PSYCHIATRIC: alert and appropriate. Results & Data Results & Data ([facility]) Vital Signs (Past 12 Hours) Vital Signs Temp Pulse Pulse Pulse Resp BP Pulse Ox 11/01/20 11:54 36.7 C 65 16 168/59 H 97 11/01/20 07:23 36.6 C 60 17 174/81 H 93 11/01/20 07:00 71 11/01/20 03:37 36.9 C 66 20 173/65 H 92 (1) Chest pain Chest pain type: unspecified Qualified Code(s): R07.9 - Chest pain, unspecified (2) CKD (chronic kidney disease), stage III Chronic kidney disease stage 3 subtype: stage 3b (GFR 30-44) Qualified Code(s): N18.32 - Chronic kidney disease, stage 3b
--- NOTE | 2020-11-01 16:00 | XRay Report ---
SINGLE VIEW CHEST CLINICAL HISTORY: Hypoxia. Crackles on physical examination. FINDINGS: An AP, portable, upright chest radiograph is compared to study dated 10/26/2020 and correlat ed with chest CT dated 10/27/2020. The examination is degraded by portable technique and patient rotat ion. The heart is enlarged noting atherosclerotic calcification of the thoracic aorta. The pulmonary vasculature is noncongested. Chronic interstitial thickening is similar to previous. Enlargement of t he central pulmonary arteries suggests pulmonary artery hypertension. There are right larger than lef t pleural effusions with bibasilar consolidation. No pneumothorax is seen. The skeletal structures ar e osteopenic. The bony thorax is grossly intact. IMPRESSION: 1. Cardiomegaly without radiographic evidence of congestive failure. 2. Small pleural effusions with bibasilar consolidation. ACT 112: Negative or not required by law. Electronically signed by: Abran Chu M.D. 11/01/2020 3:58 PM
--- NOTE | 2020-11-01 19:27 | Hospitalist Progress Note ---
Date of Service November 01, 2020 Assessment & Plan (1) Hypertensive urgency: Readmission for hypertensive urgency. Noted discontinuation of clonidine at recent discharge. Nephro following and BP improved on recently started spironolactone and coreg. Cont hydralazine 100mg TID, Isordil TID, spi ronolactone 25, coreg 6.25mg BID. Cont pain control efforts. Much improved. (2) Abdominal discomfort: Recent hospitalization for hematochezia thought secondary to ischemic colitis. Worsened generalized abdominal pain prompted further investigation with CT a/p with IV contrast. This was unrevealing for cause of pain. Lactate is negative. She is tolerating PO. Constipation is improved with laxatives, stool softeners. Will cont this now. Also start simethicone scheduled and add scheduled Tylneol to take the edge off the pain and lessen the need for narcotics which will increase the bloating and discomfort. (3) Chest pain: Presented with chest pain--this is actually moreso her abdominal pain. No significant EKG changes and troponin remains negative Pain thought secondary to hypertensive urgency Isosorbide was increased to 20 mg 3 times daily for chest pain and also to control blood pressure CT chest wo contrast unremarkable. Improved effusions. (4) Acute urinary retention: Lu placed on 10/29 but abdominal discomfort continues. No apparent infe ction. Resolved, urinary catheter removed. (5) Nephrotic syndrome: Has nephrotic range proteinuria. Kidney function is around her baseline. Nephro consulted. Will need outpatient followup in CKD clinic. (6) COPD (chronic obstructive pulmonary disease): chronic hypoxia, uses oxygen at home "as needed" per Jyoti Pulm note in September 2020. Here she has been on it continuously-consider two step prior to discharge home. Has a h/o smoking. Some crackles on exam, CXR pending. 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 Echo with normal LVEF and mild abnormalities in August 2020. (9) DM type 2 (diabetes mellitus, type 2): cont current insulin coverage. 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 No known documented atrial fibrillation. Splenic infarction not apparent on CT scan. Followup with PCP. (11) Abnormal involuntary movements: She has been ongoing involuntary movement involving whole of the body and extremities She has had evaluation by neurologist and has had relevant investigations without any definite cause for that This has resolved. (12) DVT prophylaxis: [place] DNR/DNI Dispo-Plan for home with [facility] hospice DO Jyoti Haro Hospitalist Admission and Anticipated Discharge Date Admission Date: October 26, 2020 Subjective 89 yo F in and out of hospice in recent months and with multiple hospital readmissions presented just days after being discharged from the hospital for hypertensive urgency. Her medications were adjusted and she was home for only a day or so until she returned reporting chest pain/abdominal pain. She has been on intermittent morphine throughout the last couple of days and persistently has abdominal pain. Continues to have no belly bloat or abdominal pain today. She appears happy and encouraged. No issues with breathing or other pain. BP improved. Bowels are moving. tolerating PO. Review of Systems Review of Systems: All systems reviewed & are unremarkable except as noted in Subjective Physical Exam Physical Exam: CONSTITUTIONAL: WNWD, vitals as above, NAD EYES: normal conjunctivae, no scleral icterus ENT: external ear and nose normal, MMM RESPIRATORY: some crackles throughout, no rales or wheezes, normal respiratory effort CARDIOVASCULAR: regular rate and rhythm, 3/6 KAIN, no gallops or rubs, no JVD, no peripheral edema GASTROINTESTINAL: soft, nontender, nondistended, no guarding. MUSCULOSKELETAL: strength 5/5 throughout, head is normocephalic and atraumatic SKIN: warm and dry NEUROLOGIC: CN 2-12 grossly intact, somnolent, normal speech PSYCHIATRIC: alert and appropriate. Results & Data Results & Data ([facility]) Vital Signs (Past 12 Hours) Vital Signs Temp Pulse Resp BP Pulse Ox 11/01/20 17:03 36.9 C 66 18 176/54 H 92 11/01/20 15:20 36.5 C 66 18 178/75 H 93 11/01/20 11:54 36.7 C 65 16 168/59 H 97 Laboratory Results Short CBC 11/01/20 Range/Units 10:04 WBC 9.02 (4.8-10.8) K/uL Hgb 10.5 L (12.0-16.0) g/dL Hct 32.6 L (37-47) % Plt Count 355 (130-400) K/uL BMP 11/01/20 10:04 Sodium 132 L Potassium 4.6 Chloride 103 Carbon Dioxide 25 BUN 35 H Creatinine 1.92 H Glucose 213 H Calcium 8.0 L Medications Administered Current Inpatient Medications Acetaminophen (Acetaminophen 500 Mg Tab) 1,000 mg PO Q8H WYATT Stop: 11/30/20 19:59 Last Admin: 11/01/20 12:02 Dose: 1,000 mg Documented by: Amlodipine Besylate (Amlodipine Besylate 5 Mg Tab) 10 mg PO HS WYATT Stop: 11/26/20 20:59 Last Admin: 10/31/20 20:29 Dose: 10 mg Documented by: Apixaban (Apixaban 2.5 Mg Tab) 2.5 mg PO BID WYATT Stop: 11/25/20 20:59 Last Admin: 11/01/20 09:48 Dose: 2.5 mg Documented by: Atorvastatin Calcium (Atorvastatin 20 Mg Tab) 20 mg PO QAM [facility] Stop: 11/26/20 08:59 Last Admin: 11/01/20 09:49 Dose: 20 mg Documented by: Carvedilol (Carvedilol 6.25 Mg Tab) 6.25 mg PO BID WYATT Stop: 11/30/20 20:59 Last Admin: 11/01/20 09:51 Dose: 6.25 mg Documented by: Dextrose (Dextrose 50% 50 Ml Syringe) 25 - 50 ml IV UD PRN; Protocol PRN Reason: Hypoglycemia Protocol Stop: 11/25/20 19:14 Docusate Sodium (Docusate Sodium 100 Mg Cap) 100 mg PO BID WYATT Stop: 11/30/20 20:59 Last Admin: 11/01/20 09:53 Dose: Not Given Documented by: Furosemide (Furosemide 20 Mg Tab) 20 mg PO MoWeFr@0900 [facility] Stop: 11/26/20 08:59 Last Admin: 10/29/20 08:20 Dose: 20 mg Documented by: Glucagon (Glucagon For Inj 1 Mg Vial) 1 mg IM UD PRN; Protocol PRN Reason: Hypoglycemia Protocol Stop: 11/25/20 19:14 Glucose (Glucose 40% Gel 15 Gm Tube) 15 - 30 gm PO UD PRN; Protocol PRN Reason: Hypoglycemia Protocol Stop: 11/25/20 19:14 Glucose (Glucose 10 Tabs/Tube) 4 - 8 tabs PO UD PRN; Protocol PRN Reason: Hypoglycemia Protocol Stop: 11/25/20 19:14 Glycerin (Glycerin Adult 12 Supp/Box Supp) 1 supp OK DAILY PRN PRN Reason: Constipation Stop: 11/30/20 00:37 Last Admin: 11/01/20 15:23 Dose: 1 supp Documented by: Hydralazine HCl (Hydralazine Tab 50 Mg Tab) 100 mg PO TID [facility] Stop: 11/25/20 20:59 Last Admin: 11/01/20 14:56 Dose: 100 mg Documented by: Hydromorphone HCl (Hydromorphone Inj 0.5 Mg/0.5 Ml Syr) 0.5 mg IV Q4H PRN PRN Reason: severe abdominal pain Stop: 11/14/20 00:32 Last Admin: 11/01/20 14:23 Dose: 0.5 mg Documented by: Insulin Aspart (Insulin Aspart 100 Units/Ml 3 Ml Pen) 0 units SC ACHS [facility] Stop: 11/25/20 20:59 Last Admin: 11/01/20 18:18 Dose: 4 units Documented by: Isosorbide Dinitrate (Isosorbide Dinitrate 20 Mg Tab) 20 mg PO TID@0700,1200,1700 [facility] Stop: 11/25/20 20:59 Last Admin: 11/01/20 18:17 Dose: 20 mg Documented by: Miscellaneous (Carbohydrates For Hypoglycemia ) 15 - 30 gm PO UD PRN PRN Reason: Hypoglycemia Treatment Stop: 11/25/20 19:14 Morphine Sulfate (Morphine Sulfate 5 Mg/0.25 Ml Udp) 5 mg PO Q4H PRN PRN Reason: Pain Stop: 11/13/20 13:34 Last Admin: 10/31/20 18:09 Dose: 5 mg Documented by: Ondansetron HCl (Ondansetron Inj 2 Mg/Ml 2 Ml Vial) 4 mg IV Q8H PRN PRN Reason: NAUSEA & VOMITING Stop: 11/29/20 12:44 Last Admin: 10/30/20 23:42 Dose: 4 mg Documented by: Pantoprazole Sodium (Pantoprazole 40 Mg Tab) 40 mg PO DAILYBB [facility] Stop: 11/26/20 06:29 Last Admin: 11/01/20 05:50 Dose: 40 mg Documented by: Polyethylene Glycol (Polyethylene (Miralax) 17 Gm Pack) 17 gm PO BID17 [facility] Stop: 11/30/20 08:59 Last Admin: 11/01/20 18:17 Dose: 17 gm Documented by: Psyllium Hydrophilic Mucilloid (Psyllium 58.6% Powder Packet) 1 pkt PO QAM [facility] Stop: 11/30/20 17:29 Last Admin: 11/01/20 09:52 Dose: 1 pkt Documented by: Senna/Docusate Sodium (Docusate Sodium/Senna 50/8.6mg Tab) 1 tab PO BID [facility] Stop: 11/25/20 20:59 Last Admin: 11/01/20 09:53 Dose: 1 tab Documented by: Simethicone (Simethicone 80 Mg Chew) 80 mg PO Q6H [facility] Stop: 11/02/20 13:01 Last Admin: 11/01/20 12:02 Dose: 80 mg Documented by: Spironolactone (Spironolactone 25 Mg Tab) 25 mg PO QAM [facility] Stop: 11/26/20 08:59 Last Admin: 10/30/20 07:47 Dose: 25 mg Documented by: (1) CKD (chronic kidney disease), stage III Chronic kidney disease stage 3 subtype: stage 3b (GFR 30-44) Qualified Code(s): N18.32 - Chronic kidney disease, stage 3b (2) Chest pain Chest pain type: unspecified Qualified Code(s): R07.9 - Chest pain, unspecified
[2020-11-01] MEDS: amLODIPine BESYLATE 5 MG TAB PO SCH (20:15)
[2020-11-01] MEDS: MoRPHine SULFATE 5 MG/0.25 ML UDP PO PRN (22:06)
[2020-11-02] MEDS: SIMETHICONE 80 MG CHEW PO SCH ×3 (01:42→14:39)
[2020-11-02] MEDS: ACETAMINOPHEN 500 MG TAB PO SCH ×3 (04:55→20:55)
[2020-11-02] MEDS: ISOSORBIDE DINITRATE 20 MG TAB PO SCH ×3 (05:51→17:39)
[2020-11-02] MEDS: PANTOprazole 40 MG TAB PO SCH (05:51)
[2020-11-02 07:33] LABS: BUN Creatinine Ratio 21.1 (10-20); Creatinine Clr Calc Pharmacy 23.1 ml/min; Est GFR (African American) 34.6 ml/min; Est GFR (Non-African American) 29.8 ml/min; Potassium 4.2 mmol/L (3.5-5.1)
[2020-11-02] MEDS: INSULIN ASPART 100 UNITS/ML 3 ML PEN SC SCH ×4 (08:45→21:39)
[2020-11-02] MEDS: hydrALAZINE TAB 50 MG TAB PO SCH ×3 (08:51→21:38)
[2020-11-02] MEDS: ATORVASTATIN 20 MG TAB PO SCH (08:51)
[2020-11-02] MEDS: carvediloL 6.25 MG TAB PO SCH ×2 (08:52→21:37)
[2020-11-02] MEDS: DOCUSATE SODIUM 100 MG CAP PO SCH ×2 (08:52→21:46)
[2020-11-02] MEDS: PSYLLIUM 58.6% POWDER PACKET PO SCH (08:52)
[2020-11-02] MEDS: POLYETHYLENE (MIRALAX) 17 GM PACK PO SCH ×2 (08:53→17:39)
[2020-11-02] MEDS: APIXABAN 2.5 MG TAB PO SCH ×2 (08:53→21:36)
[2020-11-02] MEDS: DOCUSATE SODIUM/SENNA 50/8.6MG TAB PO SCH ×2 (08:53→21:46)
[2020-11-02] MEDS: SPIRONOLACTONE 25 MG TAB PO SCH (10:13)
[2020-11-02] MEDS ORDERED: lisinopril 5 MG TAB PO ONE (15:44)
--- NOTE | 2020-11-02 15:45 | Hospitalist Progress Note ---
Date of Service November 02, 2020 Assessment & Plan (1) Hypertensive urgency: Readmission for hypertensive urgency. Noted discontinuation of clonidine at recent discharge. Nephro following and BP improved on recently started spironolactone and coreg. Cont hydralazine 100mg TID, Isordil TID, spi ronolactone 25, coreg 6.25mg BID. Pain appears consistently resolved. She is stable in the 160s systolic and per Nephro, addition of lisinopril 5mg daily is reasonable with caution in setting of renal artery stenosis. (2) Abdominal discomfort: Recent hospitalization for hematochezia thought secondary to ischemic colitis. Worsened generalized abdominal pain prompted further investigation with CT a/p with IV contrast. This was unrevealing for cause of pain. Lactate is negative. She is tolerating PO. Constipation is improved with laxatives, stool softeners. Some diarrhea noted by nurses, so back down on laxatives-cont wtih fiber supplementation to stay regular. Adjust diet which daughter reports includes junk food. Discussed avoidance of milk products and other trigger foods. Tylenol to take the edge off the pain and lessen the need for narcotics which will increase the bloating and discomfort. (3) Chest pain: Resolved, Presented with chest pain--this is actually moreso her abdominal pain. No significant EKG changes and troponin remains negative Pain thought secondary to hypertensive urgency Isosorbide was increased to 20 mg 3 times daily for chest pain and also to control blood pressure CT chest wo contrast unremarkable. Improved effusions. (4) Acute urinary retention: Lu placed on 10/29 but abdominal discomfort continues. No apparent infection. Resolved and Lu out. (5) Nephrotic syndrome: Has nephrotic range proteinuria. Kidney function is around her baseline. Nephro consulted. Will need outpatient followup in CKD clinic. (6) COPD (chronic obstructive pulmonary disease): chronic hypoxia, uses oxygen at home "as needed" per [facility] note in September 2020. Here she has been on it continuously-consider two step prior to discharge home. Has a h/o smoking. Some crackles on exam, CXR pending. 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 Echo with normal LVEF and mild abnormalities in August 2020. CXR performed is consistent with known effusions and atelectasis with possibly increased effusions on the right than left. Will adjust Lasix from MWF to daily and monitor BMP and oxygen needs. (9) DM type 2 (diabetes mellitus, type 2): cont current insulin coverage. 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 No known documented atrial fibrillation. Splenic infarction not apparent on CT scan. Followup with PCP. (11) Abnormal involuntary movements: She has been ongoing involuntary movement involving whole of the body and extremities She has had evaluation by neurologist and has had relevant investigations without any definite cause for that This has resolved. (12) DVT prophylaxis: Eliquis DNR/DNI Dispo-Plan for home with [facility] hospice, however, HH will be needed for continued PT/OT support. She is someone whose family is still interested in treatment. At this time, I would opt for holding off on Hospice at [place] and going with Home Health support for the transition to home. Once things stabilize at home she may be able to convert to hospice at that point. Will discuss with family. DO Jyoti Haro Hospitalist Admission and Anticipated Discharge Date Admission Date: October 26, 2020 Subjective 89 yo F in and out of hospice in recent months and with multiple hospital readmissions presented just days after being discharged from the hospital for hypertensive urgency. Her medications were adjusted and she was home for only a day or so until she returned reporting chest pain/abdominal pain. She has been on intermittent morphine throughout the last couple of days and persistently has abdominal pain. Denies abdominal pain or bloating BP appears stable, added lisinopril 5-cautious with renal artery stenosis. Eating well Reports getting up and out of bed although this was not confirmed with nursing. Review of Systems Review of Systems: All systems reviewed & are unremarkable except as noted in Subjective Physical Exam Physical Exam: CONSTITUTIONAL: WNWD, vitals as above, NAD EYES: normal conjunctivae, no scleral icterus ENT: external ear and nose normal, MMM RESPIRATORY: some crackles throughout, no rales or wheezes, normal respiratory effort CARDIOVASCULAR: regular rate and rhythm, 3/6 KAIN, no gallops or rubs, no JVD, no peripheral edema GASTROINTESTINAL: soft, nontender, nondistended, no guarding. MUSCULOSKELETAL: strength 5/5 throughout, head is normocephalic and atraumatic SKIN: warm and dry NEUROLOGIC: CN 2-12 grossly intact, somnolent, normal speech PSYCHIATRIC: alert and appropriate. Results & Data Results & Data ([facility]) Vital Signs (Past 12 Hours) Vital Signs Temp Pulse Pulse Resp BP BP Pulse Ox 11/02/20 11:33 36.6 C 80 22 158/58 H 96 11/02/20 10:41 36.6 C 68 18 163/64 H 96 11/02/20 07:48 36.8 C 69 16 179/66 H 188/86 H 94 Laboratory Results [facility] 11/02/20 06:52 Sodium 135 L Potassium 4.2 Chloride 106 Carbon Dioxide 25 BUN 32 H Creatinine 1.53 H D Glucose 102 H Calcium 8.0 L Medications Administered Current Inpatient Medications Acetaminophen (Acetaminophen 500 Mg Tab) 1,000 mg PO Q8H [facility] Stop: 11/30/20 19:59 Last Admin: 11/02/20 13:52 Dose: 1,000 mg Documented by: Amlodipine Besylate (Amlodipine Besylate 5 Mg Tab) 10 mg PO HS [facility] Stop: 11/26/20 20:59 Last Admin: 11/01/20 20:15 Dose: 10 mg Documented by: Apixaban (Apixaban 2.5 Mg Tab) 2.5 mg PO BID [facility] Stop: 11/25/20 20:59 Last Admin: 11/02/20 08:53 Dose: 2.5 mg Documented by: Atorvastatin Calcium (Atorvastatin 20 Mg Tab) 20 mg PO QAM [facility] Stop: 11/26/20 08:59 Last Admin: 11/02/20 08:51 Dose: 20 mg Documented by: Carvedilol (Carvedilol 6.25 Mg Tab) 6.25 mg PO BID [facility] Stop: 11/30/20 20:59 Last Admin: 11/02/20 08:52 Dose: 6.25 mg Documented by: Dextrose (Dextrose 50% 50 Ml Syringe) 25 - 50 ml IV UD PRN; Protocol PRN Reason: Hypoglycemia Protocol Stop: 11/25/20 19:14 Docusate Sodium (Docusate Sodium 100 Mg Cap) 100 mg PO BID [facility] Stop: 11/30/20 20:59 Last Admin: 11/02/20 08:52 Dose: 100 mg Documented by: Furosemide (Furosemide 20 Mg Tab) 20 mg PO MoWeFr@0900 [facility] Stop: 11/26/20 08:59 Last Admin: 10/29/20 08:20 Dose: 20 mg Documented by: Glucagon (Glucagon For Inj 1 Mg Vial) 1 mg IM UD PRN; Protocol PRN Reason: Hypoglycemia Protocol Stop: 11/25/20 19:14 Glucose (Glucose 40% Gel 15 Gm Tube) 15 - 30 gm PO UD PRN; Protocol PRN Reason: Hypoglycemia Protocol Stop: 11/25/20 19:14 Glucose (Glucose 10 Tabs/Tube) 4 - 8 tabs PO UD PRN; Protocol PRN Reason: Hypoglycemia Protocol Stop: 11/25/20 19:14 Glycerin (Glycerin Adult 12 Supp/Box Supp) 1 supp [place] DAILY PRN PRN Reason: Constipation Stop: 11/30/20 00:37 Last Admin: 11/01/20 15:23 Dose: 1 supp Documented by: Hydralazine HCl (Hydralazine Tab 50 Mg Tab) 100 mg PO TID [facility] Stop: 11/25/20 20:59 Last Admin: 11/02/20 14:40 Dose: 100 mg Documented by: Hydromorphone HCl (Hydromorphone Inj 0.5 Mg/0.5 Ml Syr) 0.5 mg IV Q4H PRN PRN Reason: severe abdominal pain Stop: 11/14/20 00:32 Last Admin: 11/01/20 20:43 Dose: 0.5 mg Documented by: Insulin Aspart (Insulin Aspart 100 Units/Ml 3 Ml Pen) 0 units SC ACHS [facility] Stop: 11/25/20 20:59 Last Admin: 11/02/20 13:53 Dose: 8 units Documented by: Isosorbide Dinitrate (Isosorbide Dinitrate 20 Mg Tab) 20 mg PO TID@0700,1200,1700 [facility] Stop: 11/25/20 20:59 Last Admin: 11/02/20 14:39 Dose: 20 mg Documented by: Lisinopril (Lisinopril 5 Mg Tab) 5 mg PO NOW ONE Stop: 11/02/20 15:45 Lisinopril (Lisinopril 5 Mg Tab) 5 mg PO QAM [facility] Stop: 12/03/20 08:59 Miscellaneous (Carbohydrates For Hypoglycemia ) 15 - 30 gm PO UD PRN PRN Reason: Hypoglycemia Treatment Stop: 11/25/20 19:14 Morphine Sulfate (Morphine Sulfate 5 Mg/0.25 Ml Udp) 5 mg PO Q4H PRN PRN Reason: Pain Stop: 11/13/20 13:34 Last Admin: 11/01/20 22:06 Dose: 5 mg Documented by: Ondansetron HCl (Ondansetron Inj 2 Mg/Ml 2 Ml Vial) 4 mg IV Q8H PRN PRN Reason: NAUSEA & VOMITING Stop: 11/29/20 12:44 Last Admin: 10/30/20 23:42 Dose: 4 mg Documented by: Pantoprazole Sodium (Pantoprazole 40 Mg Tab) 40 mg PO DAILYBB [facility] Stop: 11/26/20 06:29 Last Admin: 11/02/20 05:51 Dose: 40 mg Documented by: Polyethylene Glycol (Polyethylene (Miralax) 17 Gm Pack) 17 gm PO BID17 [facility] Stop: 11/30/20 08:59 Last Admin: 11/02/20 08:53 Dose: 17 gm Documented by: Psyllium Hydrophilic Mucilloid (Psyllium 58.6% Powder Packet) [facility] [place] [facility] [place]: 11/30/20 17:29 Last Admin: 11/02/20 08:52 Dose: 1 pkt Documented by: Senna/Docusate Sodium (Docusate Sodium/Senna 50/8.6mg Tab) 1 tab PO BID [facility] Stop: 11/25/20 20:59 Last Admin: 11/02/20 08:53 Dose: 1 tab Documented by: Spironolactone (Spironolactone 25 Mg Tab) 25 mg PO QAM [facility] Stop: 11/26/20 08:59 Last Admin: 11/02/20 10:13 Dose: 25 mg Documented by: (1) CKD (chronic kidney disease), stage III Chronic kidney disease stage 3 subtype: stage 3b (GFR 30-44) Qualified Code(s): N18.32 - Chronic kidney disease, stage 3b (2) Chest pain Chest pain type: unspecified Qualified Code(s): R07.9 - Chest pain, unspecified
[2020-11-02] MEDS: amLODIPine BESYLATE 5 MG TAB PO SCH (21:35)
[2020-11-03] MEDS: ACETAMINOPHEN 500 MG TAB PO SCH ×3 (04:47→21:37)
[2020-11-03] MEDS: PANTOprazole 40 MG TAB PO SCH (06:14)
[2020-11-03] MEDS: ISOSORBIDE DINITRATE 20 MG TAB PO SCH ×3 (06:14→17:58)
[2020-11-03] MEDS: FUROSEMIDE 20 MG TAB PO SCH (09:04)
[2020-11-03] MEDS: SPIRONOLACTONE 25 MG TAB PO SCH (09:04)
[2020-11-03] MEDS: ATORVASTATIN 20 MG TAB PO SCH (09:05)
[2020-11-03] MEDS: lisinopril 5 MG TAB PO SCH (09:06)
[2020-11-03] MEDS: hydrALAZINE TAB 50 MG TAB PO SCH ×3 (09:06→21:40)
[2020-11-03] MEDS: carvediloL 6.25 MG TAB PO SCH ×2 (09:06→21:40)
[2020-11-03] MEDS: APIXABAN 2.5 MG TAB PO SCH ×2 (09:07→21:37)
[2020-11-03] MEDS: PSYLLIUM 58.6% POWDER PACKET PO SCH (09:09)
[2020-11-03] MEDS: INSULIN ASPART 100 UNITS/ML 3 ML PEN SC SCH ×4 (09:09→21:50)
[2020-11-03] MEDS: DOCUSATE SODIUM 100 MG CAP PO SCH ×2 (09:17→21:40)
[2020-11-03] MEDS ORDERED: POLYETHYLENE (MIRALAX) 17 GM PACK PO PRN (11:30)
[2020-11-03] MEDS: DOCUSATE SODIUM/SENNA 50/8.6MG TAB PO SCH ×2 (11:37→21:40)
[2020-11-03] MEDS: POLYETHYLENE (MIRALAX) 17 GM PACK PO SCH (11:37)
[2020-11-03] MEDS ORDERED: GLYCERIN ADULT 12 SUPP/BOX SUPP PR ONE (16:11)
--- NOTE | 2020-11-03 18:08 | Hospitalist Progress Note ---
Date of Service November 03, 2020 Assessment & Plan (1) Hypertensive urgency: Readmission for hypertensive urgency. Noted discontinuation of clonidine at recent discharge. Nephro following and BP improved on recently started spironolactone and coreg. Cont hydralazine 100mg TID, Isordil TID, spi ronolactone 25, coreg 6.25mg BID. Pain appears consistently resolved. She is stable in the 160s systolic and per Nephro, addition of lisinopril 5mg daily is reasonable with caution in setting of renal artery stenosis. (2) Abdominal discomfort: Recent hospitalization for hematochezia thought secondary to ischemic colitis. Worsened generalized abdominal pain prompted further investigation with CT a/p with IV contrast. This was unrevealing for cause of pain--possibly related to bloating from poor diet/not moving/narcotic use. Lactate is negative. She is tolerating PO now since bowels are moving more regularly. Adjust diet which daughter reports includes junk food. Discussed avoidance of milk products and other trigger foods. Tylenol is still scheduled and this, in addition to bowel regimen, appears very effective for her and minimizes need for narcotic. (3) Chest pain: Resolved, Presented with chest pain--this is actually moreso her abdominal pain. No significant EKG changes and troponin remains negative Pain thought secondary to hypertensive urgency Isosorbide was increased to 20 mg 3 times daily for chest pain and also to control blood pressure CT chest wo contrast unremarkable. Improved effusions. (4) Acute urinary retention: Lu placed on 10/29 but abdominal discomfort continues. No apparent infection. Resolved and Lu out. (5) Nephrotic syndrome: Has nephrotic range proteinuria. Kidney function is around her baseline. Nephro consulted. Will need outpatient followup in CKD clinic. (6) COPD (chronic obstructive pulmonary disease): chronic hypoxia, uses oxygen at home "as needed" per [facility] note in September 2020. Here she has been on it continuously-consider two step prior to discharge home. Has a h/o smoking. Some crackles on exam, CXR revealing similar bilateral atelectasis and pleural effusions seen previously. 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 Lasix changed to daily with slightly increased pleural effus ions seen on CXR over the weekend. Echo with normal LVEF and mild abnormalities in August 2020. CXR performed is consistent with known effusions and atelectasis with possibly increased effusions on the right than left. Current off oxygen. (9) DM type 2 (diabetes mellitus, type 2): cont current insulin coverage. 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 No known documented atrial fibrillation. Splenic infarction not apparent on CT scan. Followup with PCP. (11) Abnormal involuntary movements: She has been ongoing involuntary movement involving whole of the body and extremities She has had evaluation by neurologist and has had relevant investigations without any definite cause for that This has resolved. (12) [facility] hosp[facility], however, HH will be needed for continued PT/OT support. She is someone whose family is still interested in medical treatment. At this time, I would opt for holding off on Hospice at [place] and going with Home Health support for the transition to home. Once things stabilize at home she may be able to convert to hospice at that point. DO [facility] Hospitalist Admission and Anticipated Discharge Date Admission Date: October 26, 2020 Subjective 89 yo F in and out of hospice in recent months and with multiple hospital readmissions presented just days after being discharged from the hospital for hypertensive urgency. Her medications were adjusted and she was home for only a day or so until she returned reporting chest pain/abdominal pain. Has some acute belly bloat because of eating too much food for lunch She otherwise has been feeling well around this. Needs to get up and ambulate and this was encouraged if she is to be successful at home. Review of Systems Review of Systems: All systems reviewed & are unremarkable except as noted in Subjective Physical Exam Physical Exam: CONSTITUTIONAL: WNWD, vitals as above, NAD EYES: normal conjunctivae, no scleral icterus ENT: external ear and nose normal, MMM RESPIRATORY: CTAB, no rales or wheezes, normal respiratory effort CARDIOVASCULAR: regular rate and rhythm, 3/6 KAIN, no gallops or rubs, no JVD, no peripheral edema GASTROINTESTINAL: soft, nontender, nondistended, no guarding. MUSCULOSKELETAL: strength 5/5 throughout, head is normocephalic and atraumatic SKIN: warm and dry NEUROLOGIC: CN 2-12 grossly intact, no gross focal deficits. PSYCHIATRIC: alert and appropriate. Results & Data Results & Data ([facility]) Vital Signs (Past 12 Hours) Vital Signs Temp Pulse Pulse Resp BP Pulse Ox 11/03/20 17:58 66 136/63 96 11/03/20 16:00 36.7 C 65 20 138/56 L 96 11/03/20 14:16 56 L 108/46 L 11/03/20 08:00 36.8 C 66 18 165/63 H 93 Medications Administered Current Inpatient Medications Acetaminophen (Acetaminophen 500 Mg Tab) 1,000 mg PO Q8H [facility] Stop: 11/30/20 19:59 Last Admin: 11/03/20 12:37 Dose: 1,000 mg Documented by: Amlodipine Besylate (Amlodipine Besylate 5 Mg Tab) 10 mg PO HS [facility] Stop: 11/26/20 20:59 Last Admin: 11/02/20 21:35 Dose: 10 mg Documented by: Apixaban (Apixaban 2.5 Mg Tab) 2.5 mg PO BID [facility] Stop: 11/25/20 20:59 Last Admin: 11/03/20 09:07 Dose: 2.5 mg Documented by: Atorvastatin Calcium (Atorvastatin 20 Mg Tab) 20 mg PO QAM [facility] Stop: 11/26/20 08:59 Last Admin: 11/03/20 09:05 Dose: 20 mg Documented by: Carvedilol (Carvedilol 6.25 Mg Tab) 6.25 mg PO BID [facility] Stop: 11/30/20 20:59 Last Admin: 11/03/20 09:06 Dose: 6.25 mg Documented by: Dextrose (Dextrose 50% 50 Ml Syringe) 25 - 50 ml IV UD PRN; Protocol PRN Reason: Hypoglycemia Protocol Stop: 11/25/20 19:14 Docusate Sodium (Docusate Sodium 100 Mg Cap) 100 mg PO BID [facility] Stop: 11/30/20 20:59 Last Admin: 11/03/20 09:17 Dose: 100 mg Documented by: Furosemide (Furosemide 20 Mg Tab) 20 mg PO DAILY [facility] Stop: 12/04/20 08:59 Glucagon (Glucagon For Inj 1 Mg Vial) 1 mg IM UD PRN; Protocol PRN Reason: Hypoglycemia Protocol Stop: 11/25/20 19:14 Glucose (Glucose 40% Gel 15 Gm Tube) 15 - 30 gm PO UD PRN; Protocol PRN Reason: Hypoglycemia Protocol Stop: 11/25/20 19:14 Glucose (Glucose 10 Tabs/Tube) 4 - 8 tabs PO UD PRN; Protocol PRN Reason: Hypoglycemia Protocol Stop: 11/25/20 19:14 Glycerin (Glycerin Adult 12 Supp/Box Supp) 1 supp [place] DAILY PRN PRN Reason: Constipation Stop: 11/30/20 00:37 Last Admin: 11/01/20 15:23 Dose: 1 supp Documented by: Hydralazine HCl (Hydralazine Tab 50 Mg Tab) 100 mg PO TID [facility] Stop: 11/25/20 20:59 Last Admin: 11/03/20 15:01 Dose: Not Given Documented by: Hydromorphone HCl (Hydromorphone Inj 0.5 Mg/0.5 Ml Syr) 0.5 mg IV Q4H PRN PRN Reason: severe abdominal pain Stop: 11/14/20 00:32 Last Admin: 11/01/20 20:43 Dose: 0.5 mg Documented by: Insulin Aspart (Insulin Aspart 100 Units/Ml 3 Ml Pen) 0 units SC ACHS [facility] Stop: 11/25/20 20:59 Last Admin: 11/03/20 17:53 Dose: 8 units Documented by: Isosorbide Dinitrate (Isosorbide Dinitrate 20 Mg Tab) 20 mg PO TID@0700,1200,1700 [facility] Stop: 11/25/20 20:59 Last Admin: 11/03/20 17:58 Dose: 20 mg Documented by: Lisinopril (Lisinopril 5 Mg Tab) 5 mg PO QAM [facility] Stop: 12/03/20 08:59 Last Admin: 11/03/20 09:06 Dose: 5 mg Documented by: Miscellaneous (Carbohydrates For Hypoglycemia ) 15 - 30 gm PO UD PRN PRN Reason: Hypoglycemia Treatment Stop: 11/25/20 19:14 Morphine Sulfate (Morphine Sulfate 5 Mg/0.25 Ml Udp) 5 mg PO Q4H PRN PRN Reason: Pain Stop: 11/13/20 13:34 Last Admin: 11/01/20 22:06 Dose: 5 mg Documented by: Ondansetron HCl (Ondansetron Inj 2 Mg/Ml 2 Ml Vial) 4 mg IV Q8H PRN PRN Reason: NAUSEA & VOMITING Stop: 11/29/20 12:44 Last Admin: 10/30/20 23:42 Dose: 4 mg Documented by: Pantoprazole Sodium (Pantoprazole 40 Mg Tab) 40 mg PO DAILYBB [facility] Stop: 11/26/20 06:29 Last Admin: 11/03/20 06:14 Dose: 40 mg Documented by: Polyethylene Glycol (Polyethylene (Miralax) 17 Gm Pack) 17 gm PO DAILY PRN PRN Reason: constipation Stop: 12/04/20 08:59 Psyllium Hydrophilic Mucilloid (Psyllium 58.6% Powder Packet) [facility] [place]: 11/30/20 17:29 Last Admin: 11/03/20 09:09 Dose: 1 pkt Documented by: Senna/Docusate Sodium (Docusate Sodium/Senna 50/8.6mg Tab) 1 tab PO BID [facility] Stop: 11/25/20 20:59 Last Admin: 11/03/20 11:37 Dose: 1 tab Documented by: Spironolactone (Spironolactone 25 Mg Tab) 25 mg PO QAM [facility] Stop: 11/26/20 08:59 Last Admin: 11/03/20 09:04 Dose: 25 mg Documented by: (1) CKD (chronic kidney disease), stage III Chronic kidney disease stage 3 subtype: stage 3b (GFR 30-44) Qualified Code(s): N18.32 - Chronic kidney disease, stage 3b (2) Chest pain Chest pain type: unspecified Qualified Code(s): R07.9 - Chest pain, unspecified
[2020-11-03] MEDS: amLODIPine BESYLATE 5 MG TAB PO SCH (21:40)
[2020-11-04] MEDS: ACETAMINOPHEN 500 MG TAB PO SCH ×3 (05:41→20:00)
[2020-11-04] MEDS: PANTOprazole 40 MG TAB PO SCH (05:42)
[2020-11-04 08:04] LABS: BUN Creatinine Ratio 14.9 (10-20); Calcium 7.8 mg/dl (8.5-10.1); Creatinine Clr Calc Pharmacy 14.6 ml/min; Est GFR (African American) 24.1 ml/min; Est GFR (Non-African American) 20.8 ml/min; Potassium 4.1 mmol/L (3.5-5.1)
[2020-11-04] MEDS ORDERED: POLYETHYLENE (MIRALAX) 17 GM PACK PO SCH (09:00)
[2020-11-04] MEDS: PSYLLIUM 58.6% POWDER PACKET PO SCH (09:14)
[2020-11-04] MEDS: carvediloL 6.25 MG TAB PO SCH ×2 (09:15→20:01)
[2020-11-04] MEDS: hydrALAZINE TAB 50 MG TAB PO SCH ×3 (09:15→20:00)
[2020-11-04] MEDS: ISOSORBIDE DINITRATE 20 MG TAB PO SCH ×3 (09:16→17:15)
[2020-11-04] MEDS: APIXABAN 2.5 MG TAB PO SCH ×2 (09:16→20:00)
[2020-11-04] MEDS: SPIRONOLACTONE 25 MG TAB PO SCH (09:16)
[2020-11-04] MEDS: ATORVASTATIN 20 MG TAB PO SCH (09:16)
[2020-11-04] MEDS: FUROSEMIDE 20 MG TAB PO SCH (09:16)
[2020-11-04] MEDS: lisinopril 5 MG TAB PO SCH (09:16)
[2020-11-04] MEDS: INSULIN ASPART 100 UNITS/ML 3 ML PEN SC SCH ×4 (09:18→21:33)
[2020-11-04] MEDS: DOCUSATE SODIUM/SENNA 50/8.6MG TAB PO SCH ×2 (09:22→20:02)
[2020-11-04] MEDS: DOCUSATE SODIUM 100 MG CAP PO SCH ×2 (09:23→20:02)
--- NOTE | 2020-11-04 14:40 | Hospitalist Progress Note ---
Date of Service November 04, 2020 Assessment & Plan (1) Hypertensive urgency: Readmission for hypertensive urgency. Has history of poorly controlled episodic hypertension. Noted discontinuation of clonidine at recent discharge. Nephro following and BP improved on recently started spironolactone and coreg. Cont hydralazine 100mg TID, Isordil TID, spironolactone 25, coreg 6.25mg BID. Blood pressure was noted to be high at systolic more than 180 this morning Missed 1 dose of hydralazine last night Advised to have medications to be taken regularly until the blood pressure is very low Denies any cardiac symptoms We will plan to start Normodyne and stop Coreg if the blood pressure remains high (2) Abdominal discomfort: Recent hospitalization for hematochezia thought secondary to ischemic colitis. Worsened generalized abdominal pain prompted further investigation with CT a/p with IV contrast. Denies any abdominal discomfort Has been tolerating diet reasonably (3) Chest pain: Resolved, Presented with chest pain--this is actually moreso her abdominal pain. No significant EKG changes and troponin remains negative Pain thought secondary to hypertensive urgency Isosorbide was increased to 20 mg 3 times daily for chest pain and also to control blood pressure CT chest wo contrast unremarkable. Improved effusions. Denies any more chest pain (4) Acute urinary retention: Lu placed on 10/29 but abdominal discomfort continues. No apparent infection. Resolved and Lu out. (5) Nephrotic syndrome: Has nephrotic range proteinuria. Kidney function is around her baseline. Nephro consulted. Will need outpatient followup in CKD clinic. Lisinopril has been discontinued for this admission and failed trial of lisinopril during last admission Will not put any more lisinopril to control the blood pressure (6) COPD (chronic obstructive pulmonary disease): chronic hypoxia, uses oxygen at home "as needed" per [facility] note in September 2020. Here she has been on it continuously-consider two step prior to discharge home. Has a h/o smoking. Some crackles on exam, CXR revealing similar bilateral atelectasis and pleural effusions seen previously. 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 Lasix changed to daily with slightly increased pleural effusions seen on CXR over the weekend. Echo with normal LVEF and mild abnormalities in August 2020. CXR performed is consistent with known effusions and atelectasis with possibly increased effusions on the right than left. Current off oxygen. (9) DM type 2 (diabetes mellitus, type 2): cont current insulin coverage. 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 No known documented atrial fibrillation. Splenic infarction not apparent on CT scan. (11) Abnormal involuntary movements: She has been ongoing involuntary movement involving whole of the body and extremities She has had evaluation by neurologist and has had relevant investigations without any definite cause for that This has resolved. (12) DVT prophylaxis: Eliquis DNR/DNI Dispo-Plan for home with [facility] hospice, however, HH will be needed for continued PT/OT support. She is someone whose family is still interested in medical treatment. At this time, I would opt for holding off on Hospice at [place] and going with Home Health support for the transition to home. Once things stabilize at home she may be able to convert to hospice at that point. Admission and Anticipated Discharge Date Admission Date: October 26, 2020 Subjective 10/27/2020 The patient was seen and examined in telemetry unit She has been feeling little better but he still has abnormal movements Denies any significant symptoms except some pain at the left lateral chest wall No fever and/or chills 10/28/2020 The patient was seen and examined in telemetry unit She still complains to have pain in the left lateral chest wall Denies any fever and/or chills, denies any urinary symptoms She wants to go home 11/04/2020 The patient was seen and examined in medical floor I saw her for 2 days during my last rounding session She complains to have weakness and some back pain She was noted to have high blood pressure at systolic more than 180 this morning and will not be discharged today Denies any other cardiac and respiratory symptoms Review of Systems Review of Systems: All systems reviewed and are unremarkable except as noted below Musculoskeletal: + back pain Neurologic: + generalized weakness Physical Exam Physical Exam: Lying in bed with mild distress due to back pain Constitutional: + acute distress (Mild with some left lateral chest wall pain), + ill appearing and + thin Eyes: PERRL, conjunctivae normal, anicteric sclerae ENMT: external ear and nose normal, oropharynx normal Neck: trachea midline, no thyromegaly Respiratory: no respiratory distress Auscultation: + diminished lung sounds and + crackles (Minimal bibasilar crackles); no wheezes Cardiovascular: Rate/Rhythm: + irregularly irregular Heart Sounds: + murmur (2/6 ESM over precordium) Extremities: no edema Gastrointestinal (Abdomen): Inspection/Auscultation: normal bowel sounds; abdomen not distended Percussion/Palpation: abdomen soft; abdomen nontender Musculoskeletal: No acute arthritis in any joint Neurologic: Alert, awake and oriented x3. Generally very weak and lethargic Psychiatric: Mood: + depressed mood and + anxious mood Insight: + poor insight Lymphatic: no cervical or axillary lymphadenopathy Results & Data Results & Data ([facility]) Vital Signs (Past 12 Hours) Vital Signs Temp Pulse Resp BP Pulse Ox 11/04/20 14:07 64 95/53 L 96 11/04/20 12:14 60 110/56 L 96 11/04/20 07:19 36.9 C 67 16 180/62 H 98 Laboratory Results [facility] 11/04/20 07:09 Sodium 136 Potassium 4.1 Chloride 106 Carbon Dioxide 23 BUN 31 H Creatinine 2.06 H Glucose 97 Calcium 7.8 L Medications Administered Current Inpatient Medications Acetaminophen (Acetaminophen 500 Mg Tab) 1,000 mg PO Q8H [facility] Stop: 11/30/20 19:59 Last Admin: 11/04/20 10:51 Dose: 1,000 mg Documented by: Amlodipine Besylate (Amlodipine Besylate 5 Mg Tab) 10 mg PO HS [facility] Stop: 11/26/20 20:59 Last Admin: 11/03/20 21:40 Dose: 10 mg Documented by: Apixaban (Apixaban 2.5 Mg Tab) 2.5 mg PO BID [facility] Stop: 11/25/20 20:59 Last Admin: 11/04/20 09:16 Dose: 2.5 mg Documented by: Atorvastatin Calcium (Atorvastatin 20 Mg Tab) 20 mg PO QAM [facility] Stop: 11/26/20 08:59 Last Admin: 11/04/20 09:16 Dose: 20 mg Documented by: Carvedilol (Carvedilol 6.25 Mg Tab) 6.25 mg PO BID [facility] Stop: 11/30/20 20:59 Last Admin: 11/04/20 09:15 Dose: 6.25 mg Documented by: Dextrose (Dextrose 50% 50 Ml Syringe) 25 - 50 ml IV UD PRN; Protocol PRN Reason: Hypoglycemia Protocol Stop: 11/25/20 19:14 Last Admin: 11/03/20 20:57 Dose: 25 ml Documented by: Docusate Sodium (Docusate Sodium 100 Mg Cap) 100 mg PO BID [facility] Stop: 11/30/20 20:59 Last Admin: 11/04/20 09:23 Dose: 100 mg Documented by: Furosemide (Furosemide 20 Mg Tab) 20 mg PO DAILY [facility] Stop: 12/04/20 08:59 Last Admin: 11/04/20 09:16 Dose: 20 mg Documented by: Glucagon (Glucagon For Inj 1 Mg Vial) 1 mg IM UD PRN; Protocol PRN Reason: Hypoglycemia Protocol Stop: 11/25/20 19:14 Glucose (Glucose 40% Gel 15 Gm Tube) 15 - 30 gm PO UD PRN; Protocol PRN Reason: Hypoglycemia Protocol Stop: 11/25/20 19:14 Glucose (Glucose 10 Tabs/Tube) 4 - 8 tabs PO UD PRN; Protocol PRN Reason: Hypoglycemia Protocol Stop: 11/25/20 19:14 Glycerin (Glycerin Adult 12 Supp/Box Supp) 1 supp [place] DAILY PRN PRN Reason: Constipation Stop: 11/30/20 00:37 Last Admin: 11/01/20 15:23 Dose: 1 supp Documented by: Hydralazine HCl (Hydralazine Tab 50 Mg Tab) 100 mg PO TID [facility] Stop: 11/25/20 20:59 Last Admin: 11/04/20 14:31 Dose: Not Given Documented by: Hydromorphone HCl (Hydromorphone Inj 0.5 Mg/0.5 Ml Syr) 0.5 mg IV Q4H PRN PRN Reason: severe abdominal pain Stop: 11/14/20 00:32 Last Admin: 11/01/20 20:43 Dose: 0.5 mg Documented by: Insulin Aspart (Insulin Aspart 100 Units/Ml 3 Ml Pen) 0 units SC ACHS [facility] Stop: 11/25/20 20:59 Last Admin: 11/04/20 12:41 Dose: 6 units Documented by: Isosorbide Dinitrate (Isosorbide Dinitrate 20 Mg Tab) 20 mg PO TID@0700,1200,1700 [facility] Stop: 11/25/20 20:59 Last Admin: 11/04/20 12:22 Dose: 20 mg Documented by: Miscellaneous (Carbohydrates For Hypoglycemia ) 15 - 30 gm PO UD PRN PRN Reason: Hypoglycemia Treatment Stop: 11/25/20 19:14 Morphine Sulfate (Morphine Sulfate 5 Mg/0.25 Ml Udp) 5 mg PO Q4H PRN PRN Reason: Pain Stop: 11/13/20 13:34 Last Admin: 11/01/20 22:06 Dose: 5 mg Documented by: Ondansetron HCl (Ondansetron Inj 2 Mg/Ml 2 Ml Vial) 4 mg IV Q8H PRN PRN Reason: NAUSEA & VOMITING Stop: 11/29/20 12:44 Last Admin: 10/30/20 23:42 Dose: 4 mg Documented by: Pantoprazole Sodium (Pantoprazole 40 Mg Tab) 40 mg PO DAILYBB [facility] Stop: 11/26/20 06:29 Last Admin: 11/04/20 05:42 Dose: 40 mg Documented by: Polyethylene Glycol (Polyethylene (Miralax) 17 Gm Pack) 17 gm PO DAILY PRN PRN Reason: constipation Stop: 12/04/20 08:59 Psyllium Hydrophilic Mucilloid (Psyllium 58.6% Powder Packet) 1 pkt PO QAM [facility] Stop: 11/30/20 17:29 Last Admin: 11/04/20 09:14 Dose: 1 pkt Documented by: Senna/Docusate Sodium (Docusate Sodium/Senna 50/8.6mg Tab) 1 tab PO BID [facility] Stop: 11/25/20 20:59 Last Admin: 11/04/20 09:22 Dose: 1 tab Documented by: Spironolactone (Spironolactone 25 Mg Tab) 25 mg PO QAM [facility] Stop: 11/26/20 08:59 Last Admin: 11/04/20 09:16 Dose: 25 mg Documented by: (1) Chest pain Chest pain type: unspecified Qualified Code(s): R07.9 - Chest pain, unspecified (2) CKD (chronic kidney disease), stage III Chronic kidney disease stage 3 subtype: stage 3b (GFR 30-44) Qualified Code(s): N18.32 - Chronic kidney disease, stage 3b
[2020-11-04] MEDS: amLODIPine BESYLATE 5 MG TAB PO SCH (20:01)
[2020-11-05] MEDS: ACETAMINOPHEN 500 MG TAB PO SCH ×2 (05:42→12:03)
[2020-11-05] MEDS: PANTOprazole 40 MG TAB PO SCH (05:43)
[2020-11-05] MEDS: ISOSORBIDE DINITRATE 20 MG TAB PO SCH ×2 (07:23→12:02)
[2020-11-05] MEDS: hydrALAZINE TAB 50 MG TAB PO SCH ×2 (09:15→14:06)
[2020-11-05] MEDS: APIXABAN 2.5 MG TAB PO SCH (09:16)
[2020-11-05] MEDS: DOCUSATE SODIUM/SENNA 50/8.6MG TAB PO SCH (09:16)
[2020-11-05] MEDS: ATORVASTATIN 20 MG TAB PO SCH (09:16)
[2020-11-05] MEDS: DOCUSATE SODIUM 100 MG CAP PO SCH (09:16)
[2020-11-05] MEDS: carvediloL 6.25 MG TAB PO SCH (09:17)
[2020-11-05] MEDS: FUROSEMIDE 20 MG TAB PO SCH (09:17)
[2020-11-05] MEDS: SPIRONOLACTONE 25 MG TAB PO SCH (09:18)
[2020-11-05] MEDS: PSYLLIUM 58.6% POWDER PACKET PO SCH (09:18)
[2020-11-05] MEDS: INSULIN ASPART 100 UNITS/ML 3 ML PEN SC SCH ×2 (09:19→13:15)
--- NOTE | 2020-11-05 12:48 | Hospitalist Progress Note ---
Date of Service November 05, 2020 Assessment & Plan (1) Hypertensive urgency: Readmission for hypertensive urgency. Has history of poorly controlled episodic hypertension. Noted discontinuation of clonidine at recent discharge. Nephro following and BP improved on recently started spironolactone and coreg. Cont hydralazine 100mg TID, Isordil TID, spironolactone 25, coreg 6.25mg BID. Blood pressure was noted to be high at systolic more than 180 this morning Missed 1 dose of hydralazine last night Advised to have medications to be taken regularly until the blood pressure is very low Denies any cardiac symptoms We will plan to start Normodyne and stop Coreg if the blood pressure remains high Blood pressure seems to be well controlled today Strongly advised to continue the blood pressure medications as advised and this was conveyed to the daughter as well (2) Abdominal discomfort: Recent hospitalization for hematochezia thought secondary to ischemic colitis. Worsened generalized abdominal pain prompted further investigation with CT a/p with IV contrast. Denies any abdominal discomfort Has been tolerating diet reasonably No more abdominal discomfort and will try to avoid any narcotics pain medication (3) Chest pain: Resolved, Presented with chest pain--this is actually moreso her abdominal pain. No significant EKG changes and troponin remains negative Pain thought secondary to hypertensive urgency Isosorbide was increased to 20 mg 3 times daily for chest pain and also to control blood pressure CT chest wo contrast unremarkable. Improved effusions. Denies any more chest pain (4) Acute urinary retention: Lu placed on 10/29 but abdominal discomfort continues. No apparent infection. Resolved and Lu out. (5) Nephrotic syndrome: Has nephrotic range proteinuria. Kidney function is around her baseline. Nephro consulted. Will need outpatient followup in CKD clinic. Lisinopril has been discontinued for this admission and failed trial of lisinopril during last admission Will not put any more lisinopril to control the blood pressure Will have follow-up with utilization review rn as an outpatient (6) COPD (chronic obstructive pulmonary disease): chronic hypoxia, uses oxygen at home "as needed" per [facility] note in September 2020. Here she has been on it continuously-consider two step prior to discharge home. Has a h/o smoking. Some crackles on exam, CXR revealing similar bilateral atelectasis and pleural effusions seen previously. 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 Lasix changed to daily with slightly increased pleural effusions seen on CXR over the weekend. Echo with normal LVEF and mild abnormalities in August 2020. CXR performed is consistent with known effusions and atelectasis with possibly increased effusions on the right than left. Current off oxygen Remains stable. (9) DM type 2 (diabetes mellitus, type 2): cont current insulin coverage. 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 No known documented atrial fibrillation. Splenic infarction not apparent on CT scan. (11) Abnormal involuntary movements: She has been ongoing involuntary movement involving whole of the body and extremities She has had evaluation by neurologist and has had relevant investigations without any definite cause for that This has resolved. (12) DVT prophylaxis: Eliquis DNR/DNI Dispo-Plan for home with [facility] hospice, however, HH will be needed for continued PT/OT support. She is someone whose family is still interested in medical treatment. At this time, I would opt for holding off on Hospice at [place] and going with Home Health support for the transition to home. Once things stabilize at home she may be able to convert to hospice at that point. Discussed with the daughter She will be discharged home this afternoon with home health Admission and Anticipated Discharge Date Admission Date: October 26, 2020 Supervising Physician Co-Signing Physician Notes Attending attestation I have seen, examined this patient, and agree with the findings and above by our mid-level provider Ms. Kristi BELTRAN, with the following additions: - Patient with poor quality CT scan, however, difficult history to obtain has c/o pain, but then gets distracted and soft abdomen on exam - Bowel regimen and follow symptoms - Call with questions Subjective 10/27/2020 The patient was seen and examined in telemetry unit She has been feeling little better but he still has abnormal movements Denies any significant symptoms except some pain at the left lateral chest wall No fever and/or chills 10/28/2020 The patient was seen and examined in telemetry unit She still complains to have pain in the left lateral chest wall Denies any fever and/or chills, denies any urinary symptoms She wants to go home 11/04/2020 The patient was seen and examined in medical floor I saw her for 2 days during my last rounding session She complains to have weakness and some back pain She was noted to have high blood pressure at systolic more than 180 this morning and will not be discharged today Denies any other cardiac and respiratory symptoms 11/05/2020 The patient was seen and examined in medical floor She has been feeling much better and wants to go home today Her blood pressure is controlled Denies any significant symptoms Review of Systems Review of Systems: All systems reviewed and are unremarkable except as noted below Physical Exam Physical Exam: Lying in bed without any apparent distress Constitutional: + thin; no acute distress (Mild with some left lateral chest wall pain) and not ill appearing Eyes: PERRL, conjunctivae normal, anicteric sclerae ENMT: external ear and nose normal, oropharynx normal Neck: trachea midline, no thyromegaly Respiratory: no respiratory distress Auscultation: + diminished lung sounds and + crackles (Minimal bibasilar crackles); no wheezes Cardiovascular: Rate/Rhythm: + irregularly irregular Heart Sounds: + murmur (2/6 ESM over precordium) Extremities: no edema Gastrointestinal (Abdomen): Inspection/Auscultation: normal bowel sounds; abdomen not distended Percussion/Palpation: abdomen soft; abdomen nontender Musculoskeletal: No acute arthritis in any joint Neurologic: Alert, awake and oriented x3. No focal sensory and motor deficit appreciated Psychiatric: Mood: + depressed mood and + anxious mood Insight: + poor insight Lymphatic: no cervical or axillary lymphadenopathy Results & Data Results & Data ([facility]) Vital Signs (Past 12 Hours) Vital Signs Temp Pulse Pulse Resp BP BP Pulse Ox 11/05/20 12:01 62 135/53 L 11/05/20 09:14 76 151/61 H 11/05/20 07:09 36.9 C 63 18 151/57 H 97 Medications Administered Current Inpatient Medications Acetaminophen (Acetaminophen 500 Mg Tab) 1,000 mg PO Q8H [facility] Stop: 11/30/20 19:59 Last Admin: 11/05/20 12:03 Dose: 1,000 mg Documented by: Amlodipine Besylate (Amlodipine Besylate 5 Mg Tab) 10 mg PO HS [facility] Stop: 11/26/20 20:59 Last Admin: 11/04/20 20:01 Dose: 10 mg Documented by: Apixaban (Apixaban 2.5 Mg Tab) 2.5 mg PO BID [facility] Stop: 11/25/20 20:59 Last Admin: 11/05/20 09:16 Dose: 2.5 mg Documented by: Atorvastatin Calcium (Atorvastatin 20 Mg Tab) 20 mg PO QAM [facility] Stop: 11/26/20 08:59 Last Admin: 11/05/20 09:16 Dose: 20 mg Documented by: Carvedilol (Carvedilol 6.25 Mg Tab) 6.25 mg PO BID [facility] Stop: 11/30/20 20:59 Last Admin: 11/05/20 09:17 Dose: 6.25 mg Documented by: Dextrose (Dextrose 50% 50 Ml Syringe) 25 - 50 ml IV UD PRN; Protocol PRN Reason: Hypoglycemia Protocol Stop: 11/25/20 19:14 Last Admin: 11/03/20 20:57 Dose: 25 ml Documented by: Docusate Sodium (Docusate Sodium 100 Mg Cap) 100 mg PO BID [facility] Stop: 11/30/20 20:59 Last Admin: 11/05/20 09:16 Dose: Not Given Documented by: Furosemide (Furosemide 20 Mg Tab) 20 mg PO DAILY [facility] Stop: 12/04/20 08:59 Last Admin: 11/05/20 09:17 Dose: 20 mg Documented by: Glucagon (Glucagon For Inj 1 Mg Vial) 1 mg IM UD PRN; Protocol PRN Reason: Hypoglycemia Protocol Stop: 11/25/20 19:14 Glucose (Glucose 40% Gel 15 Gm Tube) 15 - 30 gm PO UD PRN; Protocol PRN Reason: Hypoglycemia Protocol Stop: 11/25/20 19:14 Glucose (Glucose 10 Tabs/Tube) 4 - 8 tabs PO UD PRN; Protocol PRN Reason: Hypoglycemia Protocol Stop: 11/25/20 19:14 Glycerin (Glycerin Adult 12 Supp/Box Supp) 1 supp [place] DAILY PRN PRN Reason: Constipation Stop: 11/30/20 00:37 Last Admin: 11/01/20 15:23 Dose: 1 supp Documented by: Hydralazine HCl (Hydralazine Tab 50 Mg Tab) 100 mg PO TID [facility] Stop: 11/25/20 20:59 Last Admin: 11/05/20 14:06 Dose: 100 mg Documented by: Hydromorphone HCl (Hydromorphone Inj 0.5 Mg/0.5 Ml Syr) 0.5 mg IV Q4H PRN PRN Reason: severe abdominal pain Stop: 11/14/20 00:32 Last Admin: 11/01/20 20:43 Dose: 0.5 mg Documented by: Insulin Aspart (Insulin Aspart 100 Units/Ml 3 Ml Pen) 0 units SC ACHS [facility] Stop: 11/25/20 20:59 Last Admin: 11/05/20 13:15 Dose: 2 units Documented by: Isosorbide Dinitrate (Isosorbide Dinitrate 20 Mg Tab) 20 mg PO TID@0700,1200,1700 [facility] Stop: 11/25/20 20:59 Last Admin: 11/05/20 12:02 Dose: 20 mg Documented by: Miscellaneous (Carbohydrates For Hypoglycemia ) 15 - 30 gm PO UD PRN PRN Reason: Hypoglycemia Treatment Stop: 11/25/20 19:14 Morphine Sulfate (Morphine Sulfate 5 Mg/0.25 Ml Udp) 5 mg PO Q4H PRN PRN Reason: Pain Stop: 11/13/20 13:34 Last Admin: 11/01/20 22:06 Dose: 5 mg Documented by: Ondansetron HCl (Ondansetron Inj 2 Mg/Ml 2 Ml Vial) 4 mg IV Q8H PRN PRN Reason: NAUSEA & VOMITING Stop: 11/29/20 12:44 Last Admin: 10/30/20 23:42 Dose: 4 mg Documented by: Pantoprazole Sodium (Pantoprazole 40 Mg Tab) 40 mg PO DAILYBB [facility] Stop: 11/26/20 06:29 Last Admin: 11/05/20 05:43 Dose: 40 mg Documented by: Polyethylene Glycol (Polyethylene (Miralax) 17 Gm Pack) 17 gm PO DAILY PRN PRN Reason: constipation Stop: 12/04/20 08:59 Psyllium Hydrophilic Mucilloid (Psyllium 58.6% Powder Packet) 1 pkt PO QAM [facility] Stop: 11/30/20 17:29 Last Admin: 11/05/20 09:18 Dose: Not Given Documented by: Senna/Docusate Sodium (Docusate Sodium/Senna 50/8.6mg Tab) 1 tab PO BID [facility] Stop: 11/25/20 20:59 Last Admin: 11/05/20 09:16 Dose: Not Given Documented by: Spironolactone (Spironolactone 25 Mg Tab) 25 mg PO QAM [facility] Stop: 11/26/20 08:59 Last Admin: 11/05/20 09:18 Dose: 25 mg Documented by: (1) CKD (chronic kidney disease), stage III Chronic kidney disease stage 3 subtype: stage 3b (GFR 30-44) Qualified Code(s): N18.32 - Chronic kidney disease, stage 3b (2) Chest pain Chest pain type: unspecified Qualified Code(s): R07.9 - Chest pain, unspecified
--- NOTE | 2020-11-05 15:26 | Nephrology Progress Note ---
Date of Service November 05, 2020 Assessment & Plan (1) Hypertensive urgency: on amlodipine 10 mg hs, lasix 20 mg mwf, hydralazine 100 mg tid, spironolactone 25 mg daily; also on imdur 20 mg tid. w/ resistant HTN and negative w/u at last admission; she does have component of nephrotic syndrome as well. negative secondary w/o recently. Goal sbp is 140-150s or as sx allow >>will try to avoid clonidine -trial also of coreg 3.25 mg bid w/ food ordered PM 10/29 >> increased to 6.25 mg bid on 10/31 PM; may need to consider labetalol instead as OP depending on HR -cont other bp meds as currently ordered > on lasix, spironolactone tomorrow -control chest/ abd pain (2) Noncompliance with medication regimen: palliative following; for increased home support to improve this adn to reduce hospital readmission (3) CKD (chronic kidney disease), stage III: prior baseline had been 1.6-1.8 creatinine for advanced ckd 3, early ckd4 >> at baseline; 2.1 creat yesterday w/ creat ranging 1.6-2.1 -meds as above -proteinuria negative to date -not a candidate for dialysis or biopsy discussion in this clinical context even if need were to arise -continue to minimize/avoid nephrotoxins -use opiates as needed recognizing renal function may cause accumulation; I added colace and psyllium to bowel regimen - last bm 10/28 >>at d/c nephro will order f/u labs weekly x 4 w/ bp check 3X weekly by HHN and f/u w/ me in 4-6 wks care coordinated w/ Dr Anderson Admission and Anticipated Discharge Date Admission Date: October 26, 2020 Subjective no pain today in shoulders/back/abd; very hopeful for d/c home Review of Systems Review of Systems: All systems reviewed & are unremarkable except as noted in Subjective Physical Exam Constitutional: well developed, + acute distress (moaning w/ abd pain), + thin and cooperative ENMT: Ears: no external ear abnormality Nose: no external nose abnormality Mouth: + dry oral mucous membranes Neck: no nuchal rigidity Respiratory: normal respiratory effort Auscultation: lungs clear to auscultation bilaterally and + diminished lung sounds Cardiovascular: Rate/Rhythm: regular rate and regular rhythm Extremities: no edema Gastrointestinal (Abdomen): Inspection/Auscultation: normal bowel sounds Percussion/Palpation: abdomen soft; abdomen nontender and no guarding Musculoskeletal: Extremities: + abnormal strength (generalized weakness) Skin: no rashes, warm and dry Psychiatric: A+Ox3, euthymic affect Orientation: alert and oriented x 3 Speech: normal rate/rhythm/volume of speech Affect: + anxious affect Results & Data ([facility]) Vital Signs (Past 12 Hours) Vital Signs Temp Pulse Pulse Resp BP BP Pulse Ox 11/05/20 14:05 64 130/55 L 11/05/20 12:55 64 18 145/59 H 96 11/05/20 12:01 62 135/53 L 11/05/20 09:14 76 151/61 H 11/05/20 07:09 36.9 C 63 18 151/57 H 97 (1) CKD (chronic kidney disease), stage III Chronic kidney disease stage 3 subtype: stage 3b (GFR 30-44) Qualified Code(s): N18.32 - Chronic kidney disease, stage 3b
--- NOTE | 2020-11-05 17:21 | Discharge Summary ---
Date of Service November 05, 2020 Admission HPI Per Admitting Provider Is an 89-year-old female with significant past medical history including resistant hypertension, nephrotic syndrome with CKD stage III, CAD, valvular heart disease, CHF, type 2 diabetes, hypertension, hyperlipidemia and occasional abnormal movements of the body without any significant cause has been complaining of chest pain since this afternoon associated with epigastric discomfort, left lateral chest pain and increasing abnormal movements of the body. Apparently she did not take her morning pills this morning and complaining of abdominal discomfort and nausea but no vomiting associated with it. For the last day or 2 she has been generally weak and has not been wanting to eat or drink that much. The history was taken from the daughter and the patient did not have any cough, shortness of breath, fever and/or chills, any problem with urine and bowel habit. She was discharged home this Tuesday with stable medical condition and this has been her for her fifth admission within the last 4 to 6 weeks. She has noted to have very high blood pressure on arrival in the emergency room at 218/116 and she was given the morning doses of medications and also nitro glycerin tablet which improved the blood pressure to some extent. She was admitted to telemetry unit for continuation of care. Admission Exam Per Admitting Provider Physical Exam: Lying in bed with distress secondary to abnormal movements of the body and limbs Constitutional: + acute distress (Abnormal movements of the body and limbs), + ill appearing and + thin Eyes: PERRL, conjunctivae normal, anicteric sclerae ENMT: external ear and nose normal, oropharynx normal Neck: trachea midline, no thyromegaly Respiratory: no respiratory distress Auscultation: lungs clear to auscultation bilaterally; no crackles Cardiovascular: Rate/Rhythm: + irregularly irregular Heart Sounds: + murmur (2/6 ESM over precordium) Extremities: no edema Gastrointestinal (Abdomen): Inspection/Auscultation: normal bowel sounds; abdomen not distended Percussion/Palpation: abdomen soft; abdomen nontender Musculoskeletal: No acute arthritis in any joint Neurologic: Alert and awake, pleasantly confused. Moving all limbs. 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, type 2 diabetes Discharge Exam Constitutional + thin; no acute distress (Mild with some left lateral chest wall pain) and not ill appearing Eyes PERRL, conjunctivae normal, anicteric sclerae ENMT external ear and nose normal, oropharynx normal Neck trachea midline, no thyromegaly Respiratory no respiratory distress Auscultation: + diminished lung sounds and + crackles (Minimal bibasilar crackles); no wheezes Cardiovascular Rate/Rhythm: + irregularly irregular Heart Sounds: + murmur (2/6 ESM over precordium) Extremities: no edema Gastrointestinal (Abdomen) Inspection/Auscultation: normal bowel sounds; abdomen not distended Percussion/Palpation: abdomen soft; abdomen nontender Psychiatric Mood: + depressed mood and + anxious mood Insight: + poor insight Lymphatic no cervical or axillary lymphadenopathy Discharge Data Allergies Allergy/AdvReac Type Severity Reaction Status Date / Time Penicillins Allergy Intermediate Rash Verified 10/26/20 16:38 Quinolones Allergy Intermediate Rash Verified 10/26/20 16:38 aspirin AdvReac Mild burning in Verified 10/26/20 16:38 stomach Consultations 10/26/20 16:43 ED Decision to Admit Stat 10/27/20 07:42 Consult Palliative Care Routine 10/29/20 10:50 Consult Nephrology Routine 10/30/20 13:35 Consult Gastroenterology Routine Ordered Studies 10/26/20 15:18 CT head/brain wo con Stat 10/27/20 16:20 CT chest diagnostic wo con Urgent 10/30/20 14:21 CT abd pelvis IV con only Urgent Hospital Course (1) Hypertensive urgency: Readmission for hypertensive urgency. Has history of poorly controlled episodic hypertension. Noted discontinuation of clonidine at recent discharge. Nephro following and BP improved on recently started spironolactone and coreg. Cont hydralazine 100mg TID, Isordil TID, spironolactone 25, coreg 6.25mg BID. Blood pressure was noted to be high at systolic more than 180 this morning Missed 1 dose of hydralazine last night Advised to have medications to be taken regularly until the blood pressure is very low Denies any cardiac symptoms We will plan to start Normodyne and stop Coreg if the blood pressure remains high Blood pressure seems to be well controlled today Strongly advised to continue the blood pressure medications as advised and this was conveyed to the daughter as well (2) Abdominal discomfort: Recent hospitalization for hematochezia thought secondary to ischemic colitis. Worsened generalized abdominal pain prompted further investigation with CT a/p with IV contrast. Denies any abdominal discomfort Has been tolerating diet reasonably No more abdominal discomfort and will try to avoid any narcotics pain medication (3) Chest pain: Resolved, Presented with chest pain--this is actually moreso her abdominal pain. No significant EKG changes and troponin remains negative Pain thought secondary to hypertensive urgency Isosorbide was increased to 20 mg 3 times daily for chest pain and also to control blood pressure CT chest wo contrast unremarkable. Improved effusions. Denies any more chest pain (4) Acute urinary retention: Lu placed on 10/29 but abdominal discomfort continues. No apparent infection. Resolved and Lu out. (5) Nephrotic syndrome: Has nephrotic range proteinuria. Kidney function is around her baseline. Nephro consulted. Will need outpatient followup in CKD clinic. 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 Here she has been on it continuously-consider two step prior to discharge home. Has a h/o smoking. Some crackles on exam, CXR revealing similar bilateral atelectasis and pleural effusions seen previously. 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 Lasix changed to daily with slightly increased pleural effusions seen on CXR over the weekend. Echo with normal LVEF and mild abnormalities in August 2020. CXR performed is consistent with known effusions and atelectasis with possibly increased effusions on the right than left. Current off oxygen Remains stable. (9) DM type 2 (diabetes mellitus, type 2): cont current insulin coverage. 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 No known documented atrial fibrillation. Splenic infarction not apparent on CT scan. (11) Abnormal involuntary movements: She has been ongoing involuntary movement involving whole of the body and extremities She has had evaluation by neurologist and has had relevant investigations without any definite cause for that This has resolved. (12) DVT prophylaxis: Eliquis DNR/DNI Dispo-Plan for home with [facility] hospice, however, HH will be needed for continued PT/OT support. She is someone whose family is still interested in medical treatment. At this time, I would opt for holding off on Hospice at [place] and going with Home Health support for the transition to home. Once things stabilize at home she may be able to convert to hospice at that point. 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, type 2 diabetes Condition on Discharge: Fair Activity: As commented below Activity Comment: Take extreme precaution to avoid falls Non-emergency contact: Primary Care Provider Call non-emergency contact if: you have any medication questions and your symptoms worsen Follow-up/Referrals: Dakota Meléndez MD [Primary Care Provider] - (Date & Time 11/10/2020 3:00 PM Provider DEVIN Watkins Department Family Practice [facility] ) Diet: Carb Consistent or DM2 and Low Sodium (2gm) Fluids: 1800ml (7 cups) Addtl Attending Provider Instructions: Please take extreme precaution to avoid falls Strongly advised to take the blood pressure medications as advised Take Tylenol extra strength 2 tablet up to 3 times a day for pain control Any narcotics pain medications will make her condition worse Addtl Winder Helper Provider Instructions: >>at discharge nephrology will order bmp weekly x 4 w/ BP check 3X weekly by home health >>needs follow up appt with Dr Bee in 4-6 weeks at kidney clinic Pending Studies at Discharge: No Stand-Alone Forms: My [employer]uck, Smoking Cessation Medications and [place] Order Prescriptions: New carvedilol 6.25 mg Tablet 6.25 mg PO BID 30 Days Qty: 60 RF: 0 Continued amlodipine 10 mg Tablet 10 mg PO HS RF: 0 atorvastatin 20 mg Tablet 20 mg PO QAM Qty: 30 RF: 1 hydralazine 100 mg tablet 100 mg PO TID Qty: 90 RF: 1 sennosides-docusate sodium [Senna with Docusate Sodium] 8.6-50 mg Tablet 1 tab-cap PO BID RF: 0 pantoprazole 40 mg Tablet,Delayed Release (Dr/Ec) 40 mg PO DAILYBB RF: 0 Eliquis 2.5 mg Tablet 2.5 mg PO BID RF: 0 spironolactone 25 mg Tablet 25 mg PO QAM 30 Days Qty: 30 RF: 0 furosemide [Lasix] 20 mg Tablet 20 mg PO UD Qty: 0 RF: 0 Changed isosorbide dinitrate 10 mg Tablet 20 mg PO TID Qty: 0 RF: 0 Discharge Orders: Discharge Order (Routine); Ordered 11/05/20 Ordered By: Iraida Sanz/Other Patient Handouts: Managing Type 2 Diabetes, Hypertension Dc, Low Salt Diet Dc Admission Data Admit Date/Time: 10/26/20 17:25 Attending Provider: Iraida Anderson Admit Provider: Iraida Anderson Primary Care Provider: Dakota Meléndez Other Providers: [facility],Home Healthcare ; Iraida Anderson ; Mimi Piper ; Dayami Bee ; Geo Max ; Kaila Hood Other Interventions: Discharge Summary Assessment (RN) Last Done: 11/05/20 13:23
== END 2020-11-05 16:29 | disposition home health service (06) | DRG 305 ==
LOC: ED 14:51 → 2E 17:25 → SUATTDRO 17:25 → 2E 19:22 → 3N 11-01 14:20

== ENCOUNTER 2021-04-26 00:15 | Inpatient (IN) ==
[2021-04-26] MEDS ORDERED: ONDANSETRON INJ 2 MG/ML 2 ML VIAL IV STA (00:29)
[2021-04-26] MEDS ORDERED: fentaNYL citrate 100 MCG/2 ML VIAL IV STA (00:29)
[2021-04-26] MEDS ORDERED: SODIUM CHLORIDE 0.9% 1000ML 500 ML IV ONE (00:29)
--- NOTE | 2021-04-26 00:36 | Emergency Department Note ---
Impression & Plan Left-sided chest pain, Hypertension, Left sided abdominal pain, Pleural effusion on left ED Provider Note Name: FATOU BOWDEN Age: 89 Sex: F Arrives Via: Ambulance Informant: Patient. Daughter ED Provider: Moy Kothari MD Chief Complaint: Left-sided chest and abdominal pain Impression: As per impressions above Medical Decision Makin-year-old female with recurrent abdominal pains arrives for evaluation of acute worsening of pain. She is quite uncomfortable and hypertensive on arrival. She was given fentanyl with improvement though blood pressure still quite elevated and thus given IV labetalol. I will note that on exam she has decreased breath sounds throughout the left side and chest x-ray is consistent with a large left-sided pleural effusion. This appears new to previous imaging. Per patient's daughter she was complaining of left-sided chest pain earlier which is unusual for patient given she usually complains of left upper abdominal pain. Patient did feel much better after fentanyl though had some hypoxia and was placed on nasal cannula O2. EKG is with left bundle branch block similar to previous and her initial troponin is negative. We will hold off on aspirin given no clear ACS at this point and avoid blood thinners in the event she needs any sort of drainage of that left lung. Her abdominal exam is tenderness over the left upper quadrant but there is no clear findings on a Noncon CT of the abdomen pelvis. I do not feel risking IV contrast with her kidney function would be reasonable at this point. I do not feel that she requires a general surgery evaluation at this time either. Given patient's symptoms, new pleural effusion, significant hypertension and her significant risk factors hospitalist was consulted for further evaluation and management. Prior Medical Record and Triage/Nursing Notes reviewed by Me Additional history obtained from daughter and chart Differentials:Infection, dehydration, metabolic abnormality, hypo/hyperglycemia, electrolyte disturbance, anemia, hypoxia, cardiac sources, intracerebral event, toxicologic, neurologic, as well as other pathologies. Vital Signs: reviewed and remarkable for hypertension tachycardia Interventions: Fentanyl 50 mcg IV, Zofran 4 mg IV, vxyddqbin22 mg IV Labs:Reviewed and remarkable for chronic renal insufficiency Imaging:See Below EKG:Per My Interpretation: Indication Left Chest Pain: NSR 78 bpm, qtc 508. No Ectopy. LBBB. Compared to EKG 02/13/21, no significant changes. Cardiac/Tele Monitoring: Cardiac Monitoring: An Order was placed for continuous cardiac monitoring. The monitor shows a rate of 70 with a normal sinus rhythm. Consults:Dr Asha Montes Hospitalist Plan: Disposition:Hospitalization. Condition: Fair History of Present Illness:89-year-old female who arrives for evaluation of abdominal pain. Patient notes 1 day of abdominal pain primarily located in the left upper quadrant and radiates to her back. Associated with nausea and burping. Patient denies falls, trauma, injuries. Patient denies vomiting, fevers, chills, headache, chest pain, shortness of breath, urinary symptoms, diarrhea, blood in stool, leg swelling, other symptoms. Patient without any recent rashes. No medications prior to arrival. Movement and palpation makes worse. Rest makes better. Patient has a history of a right renal artery stenosis which was stented 2 years ago. Patient has a history of appendectomy and hysterectomy many years ago. She denies history of bowel obstructions. ROS: See above HPI for pertinent positives & negatives. A total of 10 systems reviewed and were otherwise negative. Past Medical History:See Below Past Surgical History:See Below Family History:See Below Social History:See Below Home Medications:See Below Allergies:Penicillins, quinolones, aspirin Vitals:Blood Pressure: 215/105, Pulse 101, RR 20, T 36.9C, O2 96% on RA Physical Exam: GENERAL: Patient is very uncomfortable appearing and in moderate distress. EYES: No scleral icterus, unremarkable pupils. ENT: Mucous membranes moist, no nasal congestion. NECK: No masses appreciated, nomeningismus, trachea is midline. RESPIRATORY: Mild crackles right lung boogie, decreased breath sounds left with some crackles apical CARDIOVASCULAR: Regular rate and rhythm.No murmurs, rubs, gallops appreciated. GASTROINTESTINAL: Mild distension with TTP over left side of abdomen. No peritonitis.Bowel sounds positive.No masses appreciated. EXTREMITIES: Normal motion all extremities, no cyanosis, no edema. NEUROLOGIC: Alert and oriented, no acute motor or sensory deficits, no focal weakness, cranial nerves grossly intact. SKIN: No rash, no jaundice, no diaphoresis. PSYCH: Appropriate GCS: 15 ED Course: Times/Reassessments: Patient with moderate hypoxia following IV fentanyl which persists despite fentanyl appearing to have worn off. Patient to denies any further chest pain though notes her abdomen is still uncomfortable but does not want any more pain medicines. She and daughter are agreeable to hospitalization for further monitoring and evaluation Moy Kothari MD Past Med/Surg History Medical History Atrophy of left kidney Chest pain CHF due to valvular disease Coronary artery disease DM type 2 (diabetes mellitus, type 2) Do not resuscitate status Dyslipidemia Goals of care, counseling/discussion LBBB (left bundle branch block) Mild aortic stenosis Mild mitral stenosis Mitral regurgitation Nephrotic syndrome Palliative care encounter Severe protein-calorie malnutrition Subclavian arterial stenosis Weakness Surgical History H/O repair of left rotator cuff H/O varicose vein stripping History of appendectomy History of hysterectomy History of stent insertion of renal artery R renal artery; 2020 in [facility] Family History Denies family history of Kidney disease Social History Smoking Status: Former smoker Tobacco Type: Cigarettes Hx Alcohol Use: No Hx Substance Use: No Preferred Language: Mozambican 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 Ability: Effective Baseball Sewer Hand Required: No Beliefs That Will Affect Care: None marital status: Single Current Living Situation: Family Current Living Situation Comment: lives w/ dtr How many Children do You have: 1 Other Information That Helps Us Care for You: No Feels Safe at Home: Yes Safety Concerns: Feels Safe At This Time Assistive Devices: Oxygen - Continuous and Walker Allergies Allergies Allergy/AdvReac Type Severity Reaction Status Date / Time Penicillins Allergy Intermediate Rash Verified 04/26/21 00:52 Quinolones Allergy Intermediate Rash Verified 04/26/21 00:52 aspirin AdvReac Mild burning in Verified 04/26/21 00:52 stomach Home Meds Home Medications Medication Instructions Recorded Confirmed amlodipine 10 mg tablet 10 mg PO HS 03/31/19 04/26/21 sennosides 8.6 mg-docusate sodium See Rx Instructions .ROUTE .COMPLEX 09/06/20 04/26/21 50 mg tablet (Senna with Docusate Sodium) carboxymethylcellulose 0.5 1 drp OPHTHALMIC (EYE) QID PRN 02/13/21 04/26/21 %-glycerin 0.9 % eye drops (Refresh Optive) carvedilol 6.25 mg tablet (Coreg) 6.25 mg PO BID 02/13/21 04/26/21 furosemide 20 mg tablet (Lasix) 20 mg PO [id number] 02/13/21 04/26/21 hydromorphone 2 mg tablet 1 mg PO Q2H PRN 02/13/21 04/26/21 (Dilaudid) hyoscyamine sulfate 0.125 mg tablet 0.125 mg SUBLINGUAL Q4 PRN 02/13/21 04/26/21 lorazepam 1 mg tablet 0.5 mg PO Q4 PRN 02/13/21 04/26/21 lorazepam 1 mg tablet 1 mg PO TID 02/13/21 04/26/21 melatonin 3 mg tablet 3 mg PO HS 02/13/21 04/26/21 quetiapine 25 mg tablet 12.5 mg PO DAILY PRN 02/13/21 04/26/21 quetiapine 25 mg tablet (Seroquel) 25 mg PO QPM 02/13/21 04/26/21 simethicone 125 mg chewable tablet 125 mg PO QID PRN 02/13/21 04/26/21 spironolactone 25 mg tablet 25 mg PO DAILY 02/13/21 04/26/21 (Aldactone) prednisone 10 mg tablet See Rx Instructions .ROUTE .COMPLEX 04/05/21 04/26/21 pantoprazole 40 mg tablet,delayed 40 mg PO DAILY 04/26/21 04/26/21 release Previous Rx's Medication Instructions Recorded hydralazine 100 mg tablet 100 mg PO TID #90 tab 04/12/19 isosorbide dinitrate 10 mg tablet 20 mg PO TID 30 Days #180 tab 11/06/20 Results & Data (ED) Vital Signs Vital Signs - 24 hr 04/26/21 00:42 04/26/21 02:14 04/26/21 02:18 Temperature 36.9 C Temperature Source Oral Pulse Rate 101 H Pulse Rate [Finger] Blood Pressure 214/105 H Blood Pressure [Left Arm] Blood Pressure Mean 141 Blood Pressure Mean [Left Arm] Blood Pressure Position Sitting Blood Pressure Position [Left Arm] Pulse Oximetry 93 77 L 96 Oxygen Delivery Method Nasal Cannula Room Air Nasal Cannula Nasal Cannula Oxygen Flow Rate 2 5 Sepsis Recent Fever Within 48 Hours No Sepsis New/Unexplained Change in Mental Status N/A Sepsis Action Taken by Nursing No Action Required Oxygen Flow Rate - Titration 5 3 Pulse Oximetry Post Tiitration 95 93 04/26/21 03:00 Temperature Temperature Source Pulse Rate Pulse Rate [Finger] 65 Blood Pressure Blood Pressure [Left Arm] 170/59 H Blood Pressure Mean Blood Pressure Mean [Left Arm] 96 Blood Pressure Position Blood Pressure Position [Left Arm] Lying Pulse Oximetry 91 Oxygen Delivery Method Nasal Cannula Oxygen Flow Rate 2 Sepsis Recent Fever Within 48 Hours Sepsis New/Unexplained Change in Mental Status Sepsis Action Taken by Nursing Oxygen Flow Rate - Titration Pulse Oximetry Post Tiitration Laboratory Data Result diagrams: 04/26/21 07:05 04/26/21 07:05 Lab Results 04/26/21 04/26/21 04/26/21 Range/Units 01:15 01:35 01:35 WBC 8.16 (4.8-10.8) K/uL RBC 4.86 (4.2-5.4) M/uL Hgb 9.9 L (12.0-16.0) g/dL Hct 32.3 L (37-47) % MCV 66.5 L (80-100) fL MCH 20.4 L (25-34) pg MCHC 30.7 L (32-36) g/dL RDW Std Deviation 51.9 H (36.4-46.3) fL RDW Coeff of Dion 21.4 H (11.5-14.5) % Plt Count 392 (130-400) K/uL MPV 7.9 (7.4-10.4) fL Immature Gran % (Auto) 1.2 % Neut % (Auto) 69.7 % Lymph % (Auto) 12.9 % [place] % (Auto) 13.8 % Eos % (Auto) 2.0 % Baso % (Auto) 0.4 % Neut # (Auto) 5.69 (1.4-6.5) K/uL Lymph # (Auto) 1.05 L (1.2-3.4) K/uL [place] # (Auto) 1.13 H (0.11-0.59) K/uL Eos # (Auto) 0.16 (0-0.5) K/uL Baso # (Auto) 0.03 (0-0.2) K/uL Immature Gran # (Auto) 0.10 H (0.00-0.02) K/uL Polychromasia 1+ Anisocytosis Present Microcytosis Present Sodium 137 (136-145) mmol/L Potassium 4.2 (3.5-5.1) mmol/L Chloride 110 H (98-107) mmol/L Carbon Dioxide 20 L (21-32) mmol/L Anion Gap 7.0 (3-11) BUN 30 H (7-18) mg/dl Creatinine 1.89 H (0.6-1.2) mg/dl Est Cr Clr Drug Dosing Not Reportable Est GFR ( Amer) 26.8 ml/min Est GFR (Non-Af Amer) 23.1 ml/min BUN/Creatinine Ratio 16.1 (10-20) Glucose 141 H (70-99) mg/dl Calcium 8.5 (8.5-10.1) mg/dl Magnesium 2.3 (1.8-2.4) mg/dl Total Bilirubin 0.4 (0.2-1) mg/dl Direct Bilirubin 0.1 (0-0.2) mg/dl AST 13 L (15-37) U/L ALT 13 (12-78) Alkaline Phosphatase 152 H (45-117) U/L Troponin I 0.034 (0-0.045) ng/ml Total Protein 6.1 L (6.4-8.2) gm/dl Albumin 3.0 L (3.4-5.0) gm/dl Lipase 59 L (73-393) U/L Urine Color Yellow Urine Appearance Cloudy A (Clear) Urine pH 5.0 (4.5-7.5) Ur Specific [place] 1.016 (1.000-1.030) Urine Protein 3+ H (Negative) Urine Glucose (UA) Trace H (Negative) Urine Ketones Negative (Negative) Urine Blood Negative (Negative) Urine Nitrite Negative (Negative) Urine Bilirubin Negative (Negative) Urine Urobilinogen Negative (Negative) Ur Leukocyte Esterase Negative (Negative) Urine WBC (Auto) 1-5 (0-5) /hpf Urine RBC (Auto) 0-4 (0-4) /hpf U Hyaline Cast (Auto) 1-5 (0-5) /lpf U Epithel Cells (Auto) >30 H (0-5) /lpf Urine Bacteria (Auto) Negative (Negative) SARS-CoV-2, RNA, NAAT (NEGATIVE) 04/26/21 Range/Units 02:40 WBC (4.8-10.8) K/uL RBC (4.2-5.4) M/uL Hgb (12.0-16.0) g/dL Hct (37-47) % MCV (80-100) fL MCH (25-34) pg MCHC (32-36) g/dL RDW Std Deviation (36.4-46.3) fL RDW Coeff of Dion (11.5-14.5) % Plt Count (130-400) K/uL MPV (7.4-10.4) fL Immature Gran % (Auto) % Neut % (Auto) % Lymph % (Auto) % [place] % (Auto) % Eos % (Auto) % Baso % (Auto) % Neut # (Auto) (1.4-6.5) K/uL Lymph # (Auto) (1.2-3.4) K/uL [place] # (Auto) (0.11-0.59) K/uL Eos # (Auto) (0-0.5) K/uL Baso # (Auto) (0-0.2) K/uL Immature Gran # (Auto) (0.00-0.02) K/uL Polychromasia Anisocytosis Microcytosis Sodium (136-145) mmol/L Potassium (3.5-5.1) mmol/L Chloride (98-107) mmol/L Carbon Dioxide (21-32) mmol/L Anion Gap (3-11) BUN (7-18) mg/dl Creatinine (0.6-1.2) mg/dl Est Cr Clr Drug Dosing Est GFR ( Amer) ml/min Est GFR (Non-Af Amer) ml/min BUN/Creatinine Ratio (10-20) Glucose (70-99) mg/dl Calcium (8.5-10.1) mg/dl Magnesium (1.8-2.4) mg/dl Total Bilirubin (0.2-1) mg/dl Direct Bilirubin (0-0.2) mg/dl AST (15-37) U/L ALT (12-78) Alkaline Phosphatase (45-117) U/L Troponin I (0-0.045) ng/ml Total Protein (6.4-8.2) gm/dl Albumin (3.4-5.0) gm/dl Lipase (73-393) U/L Urine Color Urine Appearance (Clear) Urine pH (4.5-7.5) Ur Specific [place] (1.000-1.030) Urine Protein (Negative) Urine Glucose (UA) (Negative) Urine Ketones (Negative) Urine Blood (Negative) Urine Nitrite (Negative) Urine Bilirubin (Negative) Urine Urobilinogen (Negative) Ur Leukocyte Esterase (Negative) Urine WBC (Auto) (0-5) /hpf Urine RBC (Auto) (0-4) /hpf U Hyaline Cast (Auto) (0-5) /lpf U Epithel Cells (Auto) (0-5) /lpf Urine Bacteria (Auto) (Negative) SARS-CoV-2, RNA, NAAT NEGATIVE (NEGATIVE) Administered Medications Acetaminophen (Acetaminophen 325 Mg Tab) 650 mg PO Q4H PRN PRN Reason: Pain or Fever Stop: 05/26/21 05:08 Last Admin: 04/26/21 17:45 Dose: 650 mg Documented by: [id number] Amlodipine Besylate (Amlodipine Besylate 5 Mg Tab) 10 mg PO HS [facility] Stop: 05/26/21 20:59 Last Admin: 04/26/21 20:57 Dose: 10 mg Documented by: [id number] Apixaban (Apixaban 2.5 Mg Tab) 2.5 mg PO BID [facility] Stop: 05/26/21 08:59 Last Admin: 04/26/21 20:56 Dose: 2.5 mg Documented by: [id number] Admin: 04/26/21 09:01 Dose: 2.5 mg Documented by: [id number] Carvedilol (Carvedilol 6.25 Mg Tab) 6.25 mg PO BID [facility] Stop: 05/26/21 08:59 Last Admin: 04/26/21 20:56 Dose: 6.25 mg Documented by: [id number] Admin: 04/26/21 08:59 Dose: 6.25 mg Documented by: [id number] Furosemide (Furosemide 40 Mg/4 Ml Vial) 40 mg IV BID17 [facility] Stop: 05/26/21 16:59 Last Admin: 04/26/21 17:07 Dose: 40 mg Documented by: [id number] Hydralazine HCl (Hydralazine Tab 50 Mg Tab) 100 mg PO TID [facility] Stop: 05/26/21 08:59 Last Admin: 04/26/21 20:56 Dose: 100 mg Documented by: [id number] Admin: 04/26/21 13:25 Dose: 100 mg Documented by: [id number] Admin: 04/26/21 09:01 Dose: 100 mg Documented by: [id number] Ceftriaxone Sodium 1,000 mg/ (Dextrose) 50 mls @ 100 mls/hr IV Q24H [facility]; Protocol Stop: 05/03/21 07:29 Last Infusion: 04/26/21 08:40 Dose: 0 mls/hr Documented by: [id number] Admin: 04/26/21 07:51 Dose: 100 mls/hr Documented by: [id number] Doxycycline Hyclate 100 mg/ (Dextrose) 110 mls @ 50 mls/hr IV Q12H [facility] Stop: 05/03/21 07:59 Last Admin: 04/26/21 21:08 Dose: 50 mls/hr Documented by: [id number] Infusion: 04/26/21 11:13 Dose: 0 mls/hr Documented by: [id number] Admin: 04/26/21 08:57 Dose: 50 mls/hr Documented by: [id number] Isosorbide Dinitrate (Isosorbide Dinitrate 20 Mg Tab) 20 mg PO TID@0700,1200,1700 [facility] Stop: 05/26/21 06:59 Last Admin: 04/26/21 17:08 Dose: 20 mg Documented by: [id number] Admin: 04/26/21 13:25 Dose: 20 mg Documented by: [id number] Admin: 04/26/21 07:51 Dose: 20 mg Documented by: [id number] Lorazepam (Lorazepam 1 Mg Tab) 1 mg PO TID [facility] Stop: 05/26/21 08:59 Last Admin: 04/26/21 21:08 Dose: 1 mg Documented by: [id number] Admin: 04/26/21 13:36 Dose: 1 mg Documented by: [id number] Admin: 04/26/21 09:04 Dose: 1 mg Documented by: [id number] Melatonin (Melatonin 3 Mg Tab) 3 mg PO HS [facility] Stop: 05/26/21 20:59 Last Admin: 04/26/21 20:56 Dose: 3 mg Documented by: [id number] Pantoprazole Sodium (Pantoprazole 40 Mg Tab) 40 mg PO DAILY [facility] Stop: 05/26/21 08:59 Last Admin: 04/26/21 09:00 Dose: 40 mg Documented by: [id number] Quetiapine Fumarate (Quetiapine Fumarate 25 Mg Tablet) 25 mg PO DAILY@1800 [facility] Stop: 05/26/21 17:59 Last Admin: 04/26/21 17:46 Dose: 25 mg Documented by: [id number] Senna/Docusate Sodium (Docusate Sodium/Senna 50/8.6mg Tab) 2 tab PO QAM [facility] Stop: 05/26/21 08:59 Last Admin: 04/26/21 09:00 Dose: 2 tab Documented by: [id number] Senna/Docusate Sodium (Docusate Sodium/Senna 50/8.6mg Tab) 1 tab PO PM [facility] Stop: 05/26/21 20:59 Last Admin: 04/26/21 20:57 Dose: 1 tab Documented by: [id number] Spironolactone (Spironolactone 25 Mg Tab) 25 mg PO DAILY [facility] Stop: 05/26/21 08:59 Last Admin: 04/26/21 09:01 Dose: 25 mg Documented by: [id number] Discontinued Medications Fentanyl Citrate (Fentanyl Citrate 100 Mcg/2 Ml Vial) 50 mcg IV NOW STA Stop: 04/26/21 00:30 Last Admin: 04/26/21 01:43 Dose: 50 mcg Documented by: [id number] Sodium Chloride (Nss 1000ml) 500 mls @ 999 mls/hr IV .Q31M ONE Stop: 04/26/21 00:59 Last Infusion: 04/26/21 03:22 Dose: 0 mls/hr Documented by: [id number] Admin: 04/26/21 01:41 Dose: 999 mls/hr Documented by: [id number] Labetalol HCl (Labetalol Hcl Iv 5 Mg/Ml 20ml) 10 mg IV NOW STA Stop: 04/26/21 02:31 Last Admin: 04/26/21 02:39 Dose: 10 mg Documented by: [id number] Cosigned by: [id number] Ondansetron HCl (Ondansetron Inj 2 Mg/Ml 2 Ml Vial) 4 mg IV NOW STA Stop: 04/26/21 00:30 Last Admin: 04/26/21 01:42 Dose: 4 mg Documented by: [id number] Discharge Plan Visit Data Chief Complaint: Abdominal Pain Stated Complaint: ABDOMINAL PAIN INTO BACK ED Provider: Moy Kothari Discharge Problem: Left-sided chest pain, Hypertension, Left sided abdominal pain, Pleural effusion on left Discharge Problem: Hypertension Qualifiers: Hypertension type: primary hypertension Qualified Code(s): I10 - Essential (primary) hypertension
[2021-04-26 01:35] LABS: Appearance Urine Cloudy (Clear); Bacteria Urine Automated Negative (Negative); Bilirubin Urine Negative (Negative); Blood Urine Negative (Negative); Color Urine Yellow; Epithelial Cell Urine Auto >30 /lpf (0-5); Glucose Urine UA Trace (Negative); Ketones Urine Negative (Negative); Leukocyte Esterase Urine Negative (Negative); Nitrite Urine Negative (Negative); Protein Urine 3+ (Negative); RBC Urine Automated 0-4 /hpf (0-4); Specific Gravity Urine 1.016 (1.000-1.030); Urobilinogen Urine Negative (Negative)
[2021-04-26 01:45] LABS: Basophils # (auto) 0.03 K/uL (0-0.2); Basophils % (auto) 0.4 %; Eosinophils # (auto) 0.16 K/uL (0-0.5); Hematocrit (blood only) 32.3 % (37-47); Hemoglobin 9.9 g/dL (12.0-16.0); Immature Granulocytes % (auto) 1.2 %; Lymphocytes # (auto) 1.05 K/uL (1.2-3.4); Lymphocytes % (auto) 12.9 %; Mean Corpuscular Hemoglobin 20.4 pg (25-34); Mean Corpuscular Hgb Conc 30.7 g/dL (32-36); Mean Corpuscular Volume 66.5 fL (80-100); Mean Platelet Volume 7.9 fL (7.4-10.4); Monocytes # (auto) 1.13 K/uL (0.11-0.59); Monocytes % (auto) 13.8 %; Neutrophils # (auto) 5.69 K/uL (1.4-6.5); Neutrophils % (auto) 69.7 %; Platelet Count 392 K/uL (130-400); RDW Coefficient of Variation 21.4 % (11.5-14.5); RDW Standard Deviation 51.9 fL (36.4-46.3); Red Blood Count 4.86 M/uL (4.2-5.4); White Blood Count 8.16 K/uL (4.8-10.8)
[2021-04-26 02:07] LABS: Alanine Aminotransferase 13 (12-78); Aspartate Aminotransferase 13 U/L (15-37); BUN Creatinine Ratio 16.1 (10-20); Bilirubin Direct 0.1 mg/dl (0-0.2); Blood Urea Nitrogen 30 mg/dl (7-18); Calcium 8.5 mg/dl (8.5-10.1); Carbon Dioxide 20 mmol/L (21-32); Chloride 110 mmol/L (98-107); Est GFR (African American) 26.8 ml/min; Est GFR (Non-African American) 23.1 ml/min; Glucose 141 mg/dl (70-99); Lipase 59 U/L (73-393); Magnesium 2.3 mg/dl (1.8-2.4); Potassium 4.2 mmol/L (3.5-5.1); Sodium 137 mmol/L (136-145)
[2021-04-26 02:13] LABS: Alkaline Phosphatase 152 U/L (45-117); Bilirubin,Total 0.4 mg/dl (0.2-1); Total Protein 6.1 gm/dl (6.4-8.2); Troponin I 0.034 ng/ml (0-0.045)
[2021-04-26 02:16] LABS: Anisocytosis Present; Microcytosis Present; Polychromasia 1+
[2021-04-26] MEDS ORDERED: LABETALOL HCL IV 5 MG/ML 20ML IV STA (02:30)
[2021-04-26] MEDS ORDERED: SIMETHICONE 80 MG CHEW PO PRN (05:09)
[2021-04-26] MEDS ORDERED: ONDANSETRON INJ 2 MG/ML 2 ML VIAL IV PRN (05:09)
[2021-04-26] MEDS ORDERED: HYDROmorphone HCL 2 MG TAB PO PRN (05:09)
[2021-04-26] MEDS ORDERED: NITROGLYCERIN SL 0.4 MG/TAB TAB SL PRN (05:09)
[2021-04-26] MEDS ORDERED: ARTIFICIAL TEARS OP PRN (05:09)
--- NOTE | 2021-04-26 06:48 | History and Physical Report ---
DATE OF ADMISSION: 04/26/2021. CHIEF COMPLAINT: Headache and chest pain. HISTORY OF PRESENT ILLNESS: This is an 89-year-old female with past medical history significant for COPD, heart failure due to valvular disease, hypertension, GERD, female stress incontinence, history of pulmonary embolism, persistent insomnia, presents with headache and chest pain. After pain medication in the ER, the pain has resolved. Chest x-ray is showing possible left pleural effusion. Blood pressures were running high, so we were called for admission. Currently, resting comfortably, hemodynamically stable. Daughter in the room helping with H and P. The patient is alert and oriented to name and place. Currently, denies any headache, denies any chest pain, no shortness of breath, no cough, no fevers, no nausea, no abdominal pain. Normal bowel and bladder movements. Ambulates okay at home. Lives with her daughter. ALLERGIES: PENICILLINS, QUINOLONES, ASPIRIN. PAST MEDICAL HISTORY: As mentioned above. PAST SURGICAL HISTORY: Appendectomy, left rotator cuff repair, gastric ulcer repair, total hysterectomy MEDICATIONS: As per Epic, the patient is on amlodipine 10 mg p.o. daily, Lipitor 20 mg p.o. daily, Protonix 40 mg p.o. daily, cetirizine 10 mg p.o. daily, Lasix 20 mg p.o. daily, lisinopril 20 mg p.o. daily, potassium chloride 10 mEq p.o. daily, Eliquis 2.5 mg p.o. b.i.d., hydralazine 100 mg p.o. b.i.d., isosorbide dinitrate 20 mg p.o. b.i.d., Coreg 6.25 mg p.o. b.i.d., ProAir 2 puffs inhalation p.r.n. FAMILY HISTORY: Significant for sister has COPD; father has liver cancer, heart disorder; mother has stroke, hypertension, diabetes. SOCIAL HISTORY: , lives with daughter. Former smoker, smoked an average of 1.5 a day for 40 years, quit smoking 30 years ago. Currently, no alcohol use. No drug use. REVIEW OF SYSTEMS: As per HPI. Rest of the review of systems is negative. PHYSICAL EXAMINATION: GENERAL: The patient is old and frail, not in acute distress. VITAL SIGNS: Temperature 36.9, pulse 65, blood pressure 170/59, oxygen 91% on 2 liters, after pain medication, it was 77% on room air. HEENT: Pupils equal, round and reactive to light. Oral mucosa moist. NECK: No JVD, no neck masses. CARDIOVASCULAR: S1 and S2 heard. Regular rate and rhythm. No murmur, no gallop. RESPIRATORY SYSTEM: Normal AP diameter. No accessory muscle use. No wheezing, no crackles. ABDOMEN: Soft, bowel sounds present, nontender, no distention. CENTRAL NERVOUS SYSTEM: Cranial nerves II through XII are grossly intact, nonfocal. EXTREMITIES: Lower extremity pedal edema present, no erythema seen. LABORATORY DATA: WBC 8.1, hemoglobin 9.9, hematocrit 32.3, platelets 392. Sodium 137, potassium 4.2, chloride 110, bicarbonate 20, BUN 20, creatinine 1.8, serum glucose 141, calcium 8.5, magnesium 2.3, total bilirubin 0.4, direct bilirubin 0.1, AST 13, ALT 13, alkaline phosphatase 152. Troponin I of 0.03. Lipase 59. Urinalysis cloudy, +3 protein. SARS-CoV-2 PCR negative. IMAGING DATA: Chest x-ray, possible left pleural effusion. CT of abdomen and pelvis, small stable right pleural effusion, moderate left pleural effusion, bibasilar atelectasis, possible viral pneumonia on lower lobes, stable cardiomegaly. ASSESSMENT AND PLAN: This is an 89-year-old female who presents with left-sided chest pain and headache. 1. Left-sided chest pain, left pleural effusion. On the imaging studies, , will consult pulmonary. chest pain, rule out acute coronary syndrome with serial enzymes, echo, and cardiology consult in the a.m. Will keep her n.p.o.Empiric abx for possible pneumonia. 2. Hypertension: Continue her home medication of hydralazine,nitrates, spironolactone and Coreg. Will monitor the blood pressure. 3. Nephrotic syndrome. range proteinuria. Last admission, her lisinopril was discontinued. Follow up with nephrology. 4. Chronic kidney disease, creatinine 1.8, around baseline. 5. Chronic obstructive pulmonary disease: Chronic hypoxia, on oxygen at home as needed. Currently, after pain medication, he is requiring oxygen. 6. History of smoking. Will follow CT chest final report. 7. Congestive heart failure due to valvular heart disease: Continue her home Lasix with spironolactone. Follow the echocardiogram. 8. Diabetes: Currently not on any medication. Will follow the blood sugars, follow HbA1c levels. 9. History of pulmonary embolism. History of chronic anticoagulation. History of splenic infarct, on Eliquis.(need to verify if still on eliquis) 10. History of abnormal involuntary movements. 11. Deep venous thrombosis prophylaxis: On Eliquis. CODE STATUS: Daughter says to be full code only if there is chance of recovery. DISPOSITION: Admit to med tele. PT/OT prior to discharge. Social service to help with discharge planning. Job ID: [id number] [id number]
[2021-04-26 07:17] LABS: Basophils # (auto) 0.03 K/uL (0-0.2); Basophils % (auto) 0.4 %; Eosinophils # (auto) 0.17 K/uL (0-0.5); Eosinophils % (auto) 2.2 %; Hematocrit (blood only) 29.8 % (37-47); Immature Granulocytes # (auto) 0.07 K/uL (0.00-0.02); Immature Granulocytes % (auto) 0.9 %; Lymphocytes # (auto) 1.06 K/uL (1.2-3.4); Lymphocytes % (auto) 13.6 %; Mean Corpuscular Hemoglobin 20.2 pg (25-34); Mean Corpuscular Hgb Conc 30.2 g/dL (32-36); Mean Corpuscular Volume 66.8 fL (80-100); Mean Platelet Volume 7.9 fL (7.4-10.4); Monocytes # (auto) 1.27 K/uL (0.11-0.59); Monocytes % (auto) 16.3 %; Neutrophils # (auto) 5.18 K/uL (1.4-6.5); Neutrophils % (auto) 66.6 %; Platelet Count 353 K/uL (130-400); RDW Coefficient of Variation 21.5 % (11.5-14.5); RDW Standard Deviation 52.3 fL (36.4-46.3); Red Blood Count 4.46 M/uL (4.2-5.4); White Blood Count 7.78 K/uL (4.8-10.8)
[2021-04-26 07:34] LABS: BUN Creatinine Ratio 13.9 (10-20); Calcium 8.2 mg/dl (8.5-10.1); Creatinine Clr Calc Pharmacy 17.1 ml/min; Est GFR (African American) 28.8 ml/min; Est GFR (Non-African American) 24.9 ml/min; Magnesium 2.1 mg/dl (1.8-2.4); Potassium 3.9 mmol/L (3.5-5.1)
[2021-04-26 07:40] LABS: Anisocytosis Present; Hypochromasia Present; Ovalocytes 1+; Polychromasia 1+
[2021-04-26 07:46] LABS: Troponin I 0.056 ng/ml (0-0.045)
[2021-04-26] MEDS: cefTRIAXone SODIUM 1,000 MG in DEXTROSE 5% 50 ML IV SCH (07:51)
[2021-04-26] MEDS: ISOSORBIDE DINITRATE 20 MG TAB PO SCH ×3 (07:51→17:08)
--- NOTE | 2021-04-26 08:09 | XRay Report ---
XR chest 1V portable CLINICAL HISTORY: left upper abdominal pain, htn. Evaluate cardiopulmonary status COMPARISON STUDY: 02/09/2021 TECHNIQUE: 1 view of the chest FINDINGS: Single frontal view of the chest demonstrates the cardiomediastinal silhouette to be within normal li mits. There has been interval development of patchy interstitial and alveolar opacities bilaterally. The findings are most characteristic of a viral type pneumonitis. Covid 19 pneumonia should be exclud ed. There is again asymmetric elevation of the left hemidiaphragm. There is no evidence for pleural e ffusion. There is no evidence for vascular congestion. There is no acute osseous pathology. IMPRESSION: Patchy interstitial and alveolar opacities bilaterally characteristic of a viral type pne umonitis and probable early Covid 19 pneumonia. Impression ACT 112: Negative or not required by law. Electronically signed by: Jhonatan Nayak M.D. 04/26/2021 8:08 AM
--- NOTE | 2021-04-26 08:16 | Pulmonary Consultation ---
Date of Consultation April 26, 2021 Assessment & Plan (1) Pleural effusion: (2) Shortness of breath: (3) Acute respiratory failure with hypoxia: CT chest 04/26/2021 personally reviewed: Moderate pleural effusion on the right, large pleural effusion on the left Cardiomegaly No mediastinal adenopathy --Bilateral pleural effusion Likely secondary to underlying CHF Patient is not in any acute distress Aggressive diuresis BiPAP nightly and as needed shortness of breath O2 supplementation to keep oxygen saturation between 90-92% --Acute hypoxic respiratory failure Likely secondary to bilateral pleural effusion from underlying CHF COVID-19 PCR negative Continue with O2 supplementation to keep oxygen saturation between 88-92% --Ex-smoker Can have outpatient PFTs if needed Plan: Recommend to put a Lu catheter in so that we have strict output Aggressive diuresis to keep the patient at least -1.5 L on a daily basis. BiPAP nightly and as needed shortness of breath No plan for thoracentesis currently. If there is no improvement in pleural effusion within the next 48 hours will reassess Case was discussed with Dr. Anderson Please note the above document was generated using voice recognition software. It may contain grammatical, syntax or spelling errors.Any formal questions or concerns about the content, text or information contained within the body of this dictation should be directly addressed to the provider for clarification. History of Present Illness Attending Physician: Iraida Anderson MD History of Present Illness 89-year old female presented to the hospital with complaints of chest pain and headache. She was found to be in hypertensive urgency Past medical history: Grade 3 diastolic CHF, GERD, COPD Pulmonary consulted for bilateral pleural effusion appreciated on the CT chest At the time of examination patient was saturating 94-96% on 2 L nasal cannula She was not in any respiratory distress. She is a Sami speaker. Denied any chest pain, no headache, denies actually any shortness of breath. No dysuria, no diarrhea. No fever or chills. She was asking repeatedly to go home. Social history: Approximately [id number] smoking history quit approximately 25-30 years ago. Allergies Allergy/AdvReac Type Severity Reaction Status Date / Time Penicillins Allergy Intermediate Rash Verified 04/26/21 00:52 Quinolones Allergy Intermediate Rash Verified 04/26/21 00:52 aspirin AdvReac Mild burning in Verified 04/26/21 00:52 stomach Home Medications Medication Instructions Recorded Confirmed Type amlodipine 10 mg tablet 10 mg PO HS 03/31/19 04/26/21 History hydralazine 100 mg tablet 100 mg PO TID #90 tab 04/12/19 04/26/21 Rx sennosides 8.6 mg-docusate sodium See Rx Instructions .ROUTE .COMPLEX 09/06/20 04/26/21 History 50 mg tablet (Senna with Docusate Sodium) isosorbide dinitrate 10 mg tablet 20 mg PO TID 30 Days #180 tab 11/06/20 04/26/21 Rx carboxymethylcellulose 0.5 1 drp OPHTHALMIC (EYE) QID PRN 02/13/21 04/26/21 History %-glycerin 0.9 % eye drops (Refresh Optive) carvedilol 6.25 mg tablet (Coreg) 6.25 mg PO BID 02/13/21 04/26/21 History furosemide 20 mg tablet (Lasix) 20 mg PO 3XWK 02/13/21 04/26/21 History hydromorphone 2 mg tablet 1 mg PO Q2H PRN 02/13/21 04/26/21 History (Dilaudid) hyoscyamine sulfate 0.125 mg tablet 0.125 mg SUBLINGUAL Q4 PRN 02/13/21 04/26/21 History lorazepam 1 mg tablet 0.5 mg PO Q4 PRN 02/13/21 04/26/21 History lorazepam 1 mg tablet 1 mg PO TID 02/13/21 04/26/21 History melatonin 3 mg tablet 3 mg PO HS 02/13/21 04/26/21 History quetiapine 25 mg tablet 12.5 mg PO DAILY PRN 02/13/21 04/26/21 History quetiapine 25 mg tablet (Seroquel) 25 mg PO QPM 02/13/21 04/26/21 History simethicone 125 mg chewable tablet 125 mg PO QID PRN 02/13/21 04/26/21 History spironolactone 25 mg tablet 25 mg PO DAILY 02/13/21 04/26/21 History (Aldactone) prednisone 10 mg tablet See Rx Instructions .ROUTE .COMPLEX 04/05/21 04/26/21 History pantoprazole 40 mg tablet,delayed 40 mg PO DAILY 04/26/21 04/26/21 History release Patient History Medical History Atrophy of left kidney Chest pain CHF due to valvular disease Coronary artery disease DM type 2 (diabetes mellitus, type 2) Do not resuscitate status Dyslipidemia Goals of care, counseling/discussion LBBB (left bundle branch block) Mild aortic stenosis Mild mitral stenosis Mitral regurgitation Nephrotic syndrome Palliative care encounter Severe protein-calorie malnutrition Subclavian arterial stenosis Weakness Surgical History H/O repair of left rotator cuff H/O varicose vein stripping History of appendectomy History of hysterectomy History of stent insertion of renal artery R renal artery; 2020 in [facility] Family History Denies family history of Kidney disease Social History Smoking Status: Former smoker Tobacco Type: Cigarettes Hx Alcohol Use: No Hx Substance Use: No Preferred Language: Sami 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 Ability: Effective Ebay Reseller Required: No Beliefs That Will Affect Care: None marital status: Single Current Living Situation: Family Current Living Situation Comment: lives w/ dtr How many Children do You have: 1 Other Information That Helps Us Care for You: No Feels Safe at Home: Yes Safety Concerns: Feels Safe At This Time Assistive Devices: Oxygen - Continuous and Walker Review of Systems Review of Systems: All systems reviewed & are unremarkable except as noted in HPI & below Physical Exam Physical Exam: Constitutional: No acute distress HEENT: EOMI, PERRLA Respiratory system: Decreased air entry bilaterally, no wheeze, no rhonchi, positive crackles bilateral lower lobe CVS: S1-S2 positive, positive 3 out of 6 murmur appreciated best at the apex Abdomen: Soft, nontender, nondistended, positive bowel sounds x4 Extremities: +2 pulses bilaterally radialis/ dorsalis pedis, no cyanosis, +3 pitting edema bilateral lower extremity Neuro: Awake alert oriented x3 Psych: Normal mood and affect G/U: No Lu Skin: no rashes, warm and dry Lymphatic: no cervical or axillary lymphadenopathy Results & Data Results & Data ([facility]) Vital Signs (Past 12 Hours) Vital Signs Temp Pulse Pulse BP BP Pulse Ox 04/26/21 05:22 63 179/63 H 96 04/26/21 05:19 66 96 04/26/21 03:00 65 170/59 H 91 04/26/21 02:18 96 04/26/21 02:14 77 L 04/26/21 00:42 36.9 C 101 H 214/105 H 93 Laboratory Results 04/26/21 07:05 04/26/21 07:05 PG Care Time/CCT Total # of Minutes Spent Total Time Spent with Patient: Total time spent is greater than 50% in coordination of care (as documented) at patient's floor/unit and/or counseling patient: Coding Level of Care Code 33942 Initial Inpt Care Lvl 3 Diagnoses Pleural effusion J90 Shortness of breath R06.02 Acute respiratory failure with hypoxia J96.01
--- NOTE | 2021-04-26 08:18 | CT Scan Report ---
CT abd pelvis wo con CLINICAL HISTORY: left upper abdominal pain radiating to the back COMPARISON STUDY: 04/05/2021 CT DOSE: 305.49 mGy.cm TECHNIQUE: Standard CT of the Abdomen and Pelvis was performed without IV contrast. The patient did not receive oral contrast. A dose lowering technique was utilized adhering to the principles of DEYSI Chavez FINDINGS: The study is limited by breathing motion artifact. Lung base: Compared to the previous examination, there is increased patchy alveolar opacities presen t bilaterally. There is also increase in left pleural effusion when compared to the right. A small to moderate in size on the right and moderate size on the left with compressive atelectasis at the lung bases. The heart is again enlarged with extensive mitral valve calcification versus previous mitral valve surgery. Abdominal cavity: There is no evidence for abdominal mass, adenopathy or ascites. Liver: The liver is homogeneous in attenuation on these limited noncontrast images.. Spleen: The spleen is homogeneous in attenuation on these limited noncontrast images. Pancreas: The pancreas is homogeneous in attenuation on these limited noncontrast images. Gall Bladder: The gallbladder is well distended with no evidence for cholelithiasis, wall thickening or pericholecystic edema.. Adrenal glands: The adrenal glands are normal in size and attenuation on these limited noncontrast im ages. Kidneys: There is again atrophy of the left kidney when compared to the right. There is a left renal artery stent. There is no evidence for gross renal mass, calculus or hydronephrosis bilaterally. Bowel: There is a small sliding-type hiatal hernia. The bowel loops are normally placed within the ab domen and pelvis without evidence for dilatation or obstruction. There is sigmoid diverticulosis with out evidence for diverticulitis. There are no inflammatory changes present. There is no evidence for free air. There is no evidence for an inflamed appendix. Bladder: There is distention of the bladder with no evidence for focal bladder wall thickening, calcu ha or diverticulum. : There is no evidence for pelvic mass or adenopathy. Vasculature: There is no evidence for focal aneurysmal dilatation of the abdominal aorta. Marked athe rosclerotic calcification is present. Osseous structures: There is no acute osseous pathology. Extensive degenerative changes are seen thro ughout the spine. IMPRESSION: 1. Increased patchy alveolar opacities of the lung bases with the findings most characteristic of a v iral type pneumonitis. 2. Increasing bilateral pleural effusions, left right. 3. Cardiomegaly with mitral valve calcification/replacement. 4. Otherwise, no acute intra-abdominal or pelvic abnormality on these limited noncontrast images. The study is limited by breathing motion artifact. 5. There is diverticulosis without evidence for diverticulitis. 6. Additional nonacute findings are again delineated above. ACT 112: Negative or not required by law. Electronically signed by: Jhonatan Nayak M.D. 04/26/2021 8:17 AM
--- NOTE | 2021-04-26 08:30 | CT Scan Report ---
CT chest diagnostic wo con CLINICAL HISTORY: pleural effusion TECHNIQUE: Multidetector row helical CT of the chest was performed. Coronal and sagittal reformations were obtained. Automated dose lowering techniques and/or adjustment according to patient size were u tilized for this exam. Comparison: Comparison is made to CT chest 10/27/[address] chest 04/22/2010 FINDINGS: Lungs and pleura: Small right and moderate left pleural effusions. Atelectasis and/or consolidation i s seen, left greater than right. Smooth interstitial thickening is noted. Heart and pericardium: There is cardiomegaly without evidence of pericardial effusion. Valvular prost heses are seen. Vessels: The pulmonary trunk is enlarged measuring 35 mm in diameter. Mediastinum and louie: A right lower paratracheal lymph node measures 11 mm in diameter. Additional shukla bcentimeter nodes are seen. There is a 10 mm partially calcified anterior mediastinal nodule which is unchanged from prior exam. Chest wall and lower neck: Unremarkable. Abdomen: A hiatal hernia is seen. Bones: Unremarkable. IMPRESSION: 1. [id number] bilateral pleural effusions with associated atelectasis. Superimposed consolida tion cannot be excluded. 2. Cardiomegaly, pulmonary hypertension, and interstitial edema. 3. Lymphadenopathy may be reactive to infectious process. 4. Stable partially calcified anterior mediastinal mass, unchanged from 2010, favors a benign proces s. ACT 112: Negative or not required by law. Electronically signed by: Petar Sy M.D. 04/26/2021 8:29 AM
[2021-04-26] MEDS: DOXYCYCLINE HYCLATE 100 MG in DEXTROSE 5% 100 ML IV SCH ×2 (08:57→21:08)
[2021-04-26] MEDS: carvediloL 6.25 MG TAB PO SCH ×2 (08:59→20:56)
[2021-04-26] MEDS: DOCUSATE SODIUM/SENNA 50/8.6MG TAB PO SCH ×2 (09:00→20:57)
[2021-04-26] MEDS ORDERED: ATIVAN 1MG HOMEPACK PO SCH (09:00)
[2021-04-26] MEDS: PANTOprazole 40 MG TAB PO SCH (09:00)
[2021-04-26] MEDS: APIXABAN 2.5 MG TAB PO SCH ×2 (09:01→20:56)
[2021-04-26] MEDS: hydrALAZINE TAB 50 MG TAB PO SCH ×3 (09:01→20:56)
[2021-04-26] MEDS: SPIRONOLACTONE 25 MG TAB PO SCH (09:01)
[2021-04-26] MEDS: LORazepam 1 MG TAB PO SCH ×3 (09:04→21:08)
--- NOTE | 2021-04-26 10:56 | Cardiology Consultation ---
Date of Consultation April 26, 2021 Assessment & Plan (1) Hypertensive urgency: (2) Pleural effusion on left: (3) COPD (chronic obstructive pulmonary disease): (4) Severe protein-calorie malnutrition: (5) Noncompliance with medication regimen: (6) Subclavian arterial stenosis: (7) Nephrotic syndrome: (8) Chronic anticoagulation: (9) Mitral regurgitation: (10) Mild aortic stenosis: (11) Mild mitral stenosis: (12) DM type 2 (diabetes mellitus, type 2): (13) LBBB (left bundle branch block): It appears that the patient was once again suffering from hypertensive urgency resulting in chest discomfort which is similar to her previous admission in August of this year. Clonidine was previously discontinued by our nephrology colleagues secondary to patient medication noncompliance. Patient remains hypertensive so we will increase her carvedilol to 12.5 mg twice daily at this time. Consideration may be given to clonidine patch for further blood pressure control but would hold off without input from our nephrology colleagues. Continue all other outpatient medications. Patient was previously on hospice care, not clear through review of chart where we are at with this. She has not showed for 3 outpatient cardiac visits. History of Present Illness Reason for Consultation: Chest pain Requesting Physician: [facility] hospitalist group Attending Physician: Iraida Anderson MD History of Present Illness The patient is a very pleasant 89-year-old woman with multiple hospital admissions this year for hypertensive urgency. She presented to [facility] on 04/25/2021 with reports of chest pain and headache. Her symptoms resolved prior to presentation but upon arrival she was found to be significantly hypertensive once again. Her outpatient medical regimen was restarted and chest x-ray revealed a pleural effusion. She does carry a history of medication noncompliance. She was previously on clonidine for further blood pressure control on top of her extensive antihypertensive regimen but this has been held due to her medication noncompliance and risk of rebound. Currently she is without complaint at rest. Allergies Allergy/AdvReac Type Severity Reaction Status Date / Time Penicillins Allergy Intermediate Rash Verified 04/26/21 00:52 Quinolones Allergy Intermediate Rash Verified 04/26/21 00:52 aspirin AdvReac Mild burning in Verified 04/26/21 00:52 stomach Home Medications Medication Instructions Recorded Confirmed Type amlodipine 10 mg tablet 10 mg PO HS 03/31/19 04/26/21 History hydralazine 100 mg tablet 100 mg PO TID #90 tab 04/12/19 04/26/21 Rx sennosides 8.6 mg-docusate sodium See Rx Instructions .ROUTE .COMPLEX 09/06/20 04/26/21 History 50 mg tablet (Senna with Docusate Sodium) isosorbide dinitrate 10 mg tablet 20 mg PO TID 30 Days #180 tab 11/06/20 04/26/21 Rx carboxymethylcellulose 0.5 1 drp OPHTHALMIC (EYE) QID PRN 02/13/21 04/26/21 History %-glycerin 0.9 % eye drops (Refresh Optive) carvedilol 6.25 mg tablet (Coreg) 6.25 mg PO BID 02/13/21 04/26/21 History furosemide 20 mg tablet (Lasix) 20 mg PO 3XWK 02/13/21 04/26/21 History hydromorphone 2 mg tablet 1 mg PO Q2H PRN 02/13/21 04/26/21 History (Dilaudid) hyoscyamine sulfate 0.125 mg tablet 0.125 mg SUBLINGUAL Q4 PRN 02/13/21 04/26/21 History lorazepam 1 mg tablet 0.5 mg PO Q4 PRN 02/13/21 04/26/21 History lorazepam 1 mg tablet 1 mg PO TID 02/13/21 04/26/21 History melatonin 3 mg tablet 3 mg PO HS 02/13/21 04/26/21 History quetiapine 25 mg tablet 12.5 mg PO DAILY PRN 02/13/21 04/26/21 History quetiapine 25 mg tablet (Seroquel) 25 mg PO QPM 02/13/21 04/26/21 History simethicone 125 mg chewable tablet 125 mg PO QID PRN 02/13/21 04/26/21 History spironolactone 25 mg tablet 25 mg PO DAILY 02/13/21 04/26/21 History (Aldactone) prednisone 10 mg tablet See Rx Instructions .ROUTE .COMPLEX 04/05/21 04/26/21 History pantoprazole 40 mg tablet,delayed 40 mg PO DAILY 04/26/21 04/26/21 History release Patient History Medical History Atrophy of left kidney Chest pain CHF due to valvular disease Coronary artery disease DM type 2 (diabetes mellitus, type 2) Do not resuscitate status Dyslipidemia Goals of care, counseling/discussion LBBB (left bundle branch block) Mild aortic stenosis Mild mitral stenosis Mitral regurgitation Nephrotic syndrome Palliative care encounter Severe protein-calorie malnutrition Subclavian arterial stenosis Weakness Surgical History H/O repair of left rotator cuff H/O varicose vein stripping History of appendectomy History of hysterectomy History of stent insertion of renal artery R renal artery; 2020 in [facility] Family History Denies family history of Kidney disease Social History Smoking Status: Former smoker Tobacco Type: Cigarettes Hx Alcohol Use: No Hx Substance Use: No Preferred Language: Japanese 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 Ability: Effective Clinical Product Manager Required: No Beliefs That Will Affect Care: None marital status: Single Current Living Situation: Family Current Living Situation Comment: lives w/ dtr How many Children do You have: 1 Other Information That Helps Us Care for You: No Feels Safe at Home: Yes Safety Concerns: Feels Safe At This Time Assistive Devices: Oxygen - Continuous and Walker Review of Systems Review of Systems: All systems reviewed & are unremarkable except as noted in HPI & below Physical Exam Physical Exam: General: Awake, alert and oriented x 3. No acute distress. HEENT: Normocephalic, atraumatic. Pupils equal, round and reactive to light and accommodation. Extraocular muscles are intact. Anicteric sclera. Moist mucous membranes. Neck: No JVD. No bruit. Cardiovascular: Regular. Positive S-4. Normal S-1 and S-2. No S-3. 3/6 holosystolic ejection murmur, left sternal border, mid-clavicular line with radiation to the axilla. No rubs. Pulmonary: Clear to auscultation bilaterally. No rales, rhonchi, or wheezing. Abdomen: Bowel sounds x 4, soft. No rebound, guarding or tenderness. No organomegaly. Extremities: No clubbing, cyanosis or edema. +2 pedal pulses bilaterally. Skin: Warm and dry. Results & Data ([facility]) Vital Signs (Past 12 Hours) Vital Signs Temp Pulse Pulse Resp BP BP Pulse Ox 04/26/21 08:47 36.7 C 105 H 20 167/69 H 94 04/26/21 08:30 63 18 167/69 H 97 04/26/21 05:22 63 179/63 H 96 04/26/21 05:19 66 96 04/26/21 03:00 65 170/59 H 91 04/26/21 02:18 96 04/26/21 02:14 77 L 04/26/21 00:42 36.9 C 101 H 214/105 H 93
--- NOTE | 2021-04-26 11:55 | Electrocardiogram Report ---
Test Reason : Blood Pressure : / mmHG Vent. Rate : 078 BPM Atrial Rate : 078 BPM P-R Int : 154 ms QRS Dur : 166 ms QT Int : 446 ms P-R-T Axes : 025 -36 125 degrees QTc Int : 508 ms Normal sinus rhythm Possible Left atrial enlargement Left axis deviation Left bundle branch block Abnormal ECG When compared with ECG of 13-FEB-2021 22:47, T wave inversion less evident in Lateral leads Confirmed by Alexys Goins ([id number]) on 04/26/2021 11:55:01 AM Referred By: REFERRED SELF Confirmed By:Alexys Goins
[2021-04-26] MEDS: LORazepam 0.5 MG TAB PO PRN (13:26)
--- NOTE | 2021-04-26 14:52 | 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 Note ---
Date of Service: April 26, 2021 The patient was seen and examined in emergency room. She was admitted with headache and chest pain likely secondary to hypertensive urgency. Noted to have bilateral pleural effusion with more shortness of breath. Cardiology and pulmonology have seen neurology today. She is reasonably stable and will have full progress note by hospitalist tomorrow. Her labs are reviewed. Dr Rudolph Anderson
[2021-04-26] MEDS: FUROSEMIDE 40 MG/4 ML VIAL IV SCH (17:07)
[2021-04-26] MEDS: ACETAMINOPHEN 325 MG TAB PO PRN (17:45)
[2021-04-26] MEDS: QUEtiapine FUMARATE 25 MG TABLET PO SCH (17:46)
[2021-04-26] MEDS: MELATONIN 3 MG TAB PO SCH (20:56)
[2021-04-26] MEDS: amLODIPine BESYLATE 5 MG TAB PO SCH (20:57)
[2021-04-26] MEDS ORDERED: QUEtiapine FUMARATE 25 MG TABLET PO SCH ×2 (21:00)
[2021-04-27 05:16] LABS: Basophils # (auto) 0.03 K/uL (0-0.2); Basophils % (auto) 0.5 %; Eosinophils # (auto) 0.16 K/uL (0-0.5); Eosinophils % (auto) 2.6 %; Hematocrit (blood only) 26.7 % (37-47); Hemoglobin 7.9 g/dL (12.0-16.0); Immature Granulocytes # (auto) 0.04 K/uL (0.00-0.02); Immature Granulocytes % (auto) 0.7 %; Lymphocytes # (auto) 0.88 K/uL (1.2-3.4); Lymphocytes % (auto) 14.4 %; Mean Corpuscular Hemoglobin 20.2 pg (25-34); Mean Corpuscular Hgb Conc 29.6 g/dL (32-36); Mean Corpuscular Volume 68.3 fL (80-100); Monocytes # (auto) 0.68 K/uL (0.11-0.59); Monocytes % (auto) 11.1 %; Neutrophils # (auto) 4.32 K/uL (1.4-6.5); Neutrophils % (auto) 70.7 %; Platelet Count 349 K/uL (130-400); RDW Coefficient of Variation 21.3 % (11.5-14.5); RDW Standard Deviation 53.5 fL (36.4-46.3); Red Blood Count 3.91 M/uL (4.2-5.4); White Blood Count 6.11 K/uL (4.8-10.8)
[2021-04-27 06:00] LABS: Calcium 8.5 mg/dl (8.5-10.1); Creatinine Clr Calc Pharmacy 18.8 ml/min; Est GFR (African American) 32.3 ml/min; Est GFR (Non-African American) 27.9 ml/min; Phosphorus 3.8 mg/dl (2.5-4.9); Potassium 3.3 mmol/L (3.5-5.1)
[2021-04-27 06:15] LABS: Hypochromasia Present; Ovalocytes 1+; Polychromasia 1+
[2021-04-27] MEDS ORDERED: POTASSIUM CHLORIDE CRTAB 20 MEQ TABCR PO STA (08:32)
[2021-04-27] MEDS: APIXABAN 2.5 MG TAB PO SCH (08:51)
[2021-04-27] MEDS: carvediloL 6.25 MG TAB PO SCH (08:51)
[2021-04-27] MEDS: ISOSORBIDE DINITRATE 20 MG TAB PO SCH ×3 (08:51→17:57)
[2021-04-27] MEDS: hydrALAZINE TAB 50 MG TAB PO SCH ×3 (08:52→21:02)
[2021-04-27] MEDS: SPIRONOLACTONE 25 MG TAB PO SCH (08:52)
[2021-04-27] MEDS: cefTRIAXone SODIUM 1,000 MG in DEXTROSE 5% 50 ML IV SCH (08:54)
[2021-04-27] MEDS: FUROSEMIDE 40 MG/4 ML VIAL IV SCH ×2 (08:55→17:58)
[2021-04-27] MEDS ORDERED: FUROSEMIDE 20 MG TAB PO SCH (09:00)
[2021-04-27] MEDS: DOCUSATE SODIUM/SENNA 50/8.6MG TAB PO SCH ×2 (09:10→21:02)
[2021-04-27] MEDS: PANTOprazole 40 MG TAB PO SCH (09:19)
[2021-04-27] MEDS: LORazepam 1 MG TAB PO SCH ×3 (09:19→21:01)
[2021-04-27] MEDS ORDERED: carvediloL 6.25 MG TAB PO ONE (11:00)
[2021-04-27] MEDS: DOXYCYCLINE HYCLATE 100 MG in DEXTROSE 5% 100 ML IV SCH ×2 (11:40→21:01)
--- NOTE | 2021-04-27 13:53 | Electrocardiogram Report ---
Test Reason : Blood Pressure : / mmHG Vent. Rate : 071 BPM Atrial Rate : 071 BPM P-R Int : 152 ms QRS Dur : 164 ms QT Int : 462 ms P-R-T Axes : 028 -35 133 degrees QTc Int : 502 ms Normal sinus rhythm Possible Left atrial enlargement Left axis deviation Left bundle branch block Abnormal ECG When compared with ECG of 26-APR-2021 00:26, No significant change was found Confirmed by Caleb Sauer ([id number]) on 04/27/2021 1:53:05 PM Referred By: REFERRED SELF Confirmed By:Eliezer Sauer
--- NOTE | 2021-04-27 14:56 | Pulmonology Progress Note ---
Date of Service April 27, 2021 Assessment & Plan (1) Pleural effusion: (2) Shortness of breath: (3) Acute respiratory failure with hypoxia: Plan: Attending: Dr. Washington Impression: 89-year-old female that lives with her daughter Radha at home. They moved to [place] in August 2020. Prior to that they lived in [facility]. Patient admitted yesterday with headache and chest pain and found to be in hypertensive emergency. Routine work-up revealed bilateral pleural effusions that are small to moderate. Patient with increased oxygen requirements in the last 24 hours. Transition from nasal cannula to Oxymask. Most likely SaO2 was too high as patient had increased shortness of breath with an SaO2 of 97 to 98%. Patient with significant past medical history for tobacco abuse and with presumed COPD sans PFTs. Patient anticoagulated with apixaban 2.5 mg p.o. twice daily Recommendations: 1. Bilateral pleural effusions: * Most likely secondary to underlying congestive heart failure * Increased oxygenation most likely not appropriate in setting of presumed COPD * Would decrease supplemental oxygen back down to 4 L by nasal cannula and maintain SaO2 between 88 and 92% * No clinical indication for thoracentesis at this time but would hold apixaban in the event that diuresis is not effective * Initially patient was on furosemide 20 mg Tuesday. Currently increased to 40 mg IV twice daily * Continue with Lu catheter and follow strict I's and O's * We will continue to monitor pleural effusions and correlate with supplemental oxygen requirements 2. Acute hypoxic respiratory failure: * Most likely multifactorial to CHF, presumed COPD, bilateral pleural effusions * Continue diuresis * Supplemental oxygen to maintain SaO2 between 88 and 92% * Out of bed to chair as tolerated * Incentive spirometry as tolerated * Continue BiPAP nightly for increased interstitial pressures 3. History of tobacco abuse: * Patient states that she quit several years ago. * Not on any inhalers as an outpatient * Patient noted to have some wheezes on examination * Will start Brio Ellipta while inpatient * Consider outpatient pulmonary follow-up with pulmonary function testing if requested by patient and daughter Radha 4. History of pulmonary embolism: * Single event many years ago according to daughter Radha * She is unclear if there is any genetic predisposition or if patient had DVT * Unclear if the PE was provoked * Patient has been anticoagulated for several years with no further follow-up. * Would recommend holding apixaban at this time for inpatient procedures. Defer to outpatient PCP to obtain records from [facility] to determine appropriateness of continuing anticoagulation 5. CODE STATUS: * Long discussion with patient and with patient's daughter Radha by phone * Patient would not wish to be intubated or have chest compressions done in the event of cardiopulmonary arrest * Discussed low probability of favorable outcome with mechanical ventilation in an 89-year-old COPD patient with history of thromboembolic disease * Will change CODE STATUS in the system to a DNR/DNI and continue current treatment plan for underlying issues Case was discussed extensively with Dr. Anderson from the hospital service. We will continue to follow along at this time. Admission and Anticipated Discharge Date Admission Date: April 26, 2021 Subjective Attending: Dr. Washington This is an 89-year-old female that was admitted for chest pain and headache. She was found to be in hypertensive urgency. She has a history of grade 3 diastolic congestive heart failure, GERD, COPD. Patient has bilateral pleural effusions appreciated on CT chest. She currently is saturating on Oxymask at 6 L/min and is saturating at 97% with increasing shortness of breath. Patient does have an extensive smoking history. She would do better with a targeted SaO2 between 88 and 92%. Patient denies any chest pain or tightness. She does have some exertional dyspnea. She has a history of pulmonary embolus several years ago for which she is chronically anticoagulated with apixaban. At this time, patient denies any acute shortness of breath with supplemental oxygen in place. She denies fever or chills. She has no specific cough or sputum production. Review of Systems Review of Systems: All systems reviewed & are unremarkable except as noted in Subjective Physical Exam Physical Exam: GENERAL : No acute distress EYES: No icterus, gaze conjugate NOSE: No evidence of epistaxis MOUTH: No lesions or candidiasis NECK: Supple LUNGS: Bibasilar crackles with decreased air movement. No appreciation of rhonchi. HEART: Regular, rate controlled ABDOMEN: Soft, NT, ND, BS Present EXTREMITIES: No LE edema, pedal pulses intact. No Homans' sign. NEURO: A&OX3 Results & Data Results & Data ([facility]) Vital Signs (Past 12 Hours) Vital Signs Temp Pulse Pulse Pulse Resp BP BP 04/27/21 12:00 36.4 C L 78 24 176/141 H 12/27/21 08:29 36.5 C 69 22 190/80 H 04/27/21 06:30 68 18 173/53 H 04/27/21 03:00 60 15 Pulse Ox 04/27/21 12:00 92 04/27/21 08:29 99 04/27/21 06:30 93 04/27/21 03:00 87 L Laboratory Results 04/27/21 04:54 04/27/21 04:[address] chest diagnostic wo con CLINICAL HISTORY: pleural effusion TECHNIQUE: Multidetector row helical CT of the chest was performed. Coronal and sagittal reformations were obtained. Automated dose lowering techniques and/or adjustment according to patient size were utilized for this exam. Comparison: Comparison is made to CT chest 10/27/[address] chest 04/22/2010 FINDINGS: Lungs and pleura: Small right and moderate left pleural effusions. Atelectasis and/or consolidation is seen, left greater than right. Smooth interstitial thickening is noted. Heart and pericardium: There is cardiomegaly without evidence of pericardial effusion. Valvular prostheses are seen. Vessels: The pulmonary trunk is enlarged measuring 35 mm in diameter. Mediastinum and louie: A right lower paratracheal lymph node measures 11 mm in diameter. Additional subcentimeter nodes are seen. There is a 10 mm partially calcified anterior mediastinal nodule which is unchanged from prior exam. Chest wall and lower neck: Unremarkable. Abdomen: A hiatal hernia is seen. Bones: Unremarkable. IMPRESSION: 1. Ogjmp-[id number]-[id number] bilateral pleural effusions with associated atelectasis. Superimposed consolidation cannot be excluded. 2. Cardiomegaly, pulmonary hypertension, and interstitial edema. 3. Lymphadenopathy may be reactive to infectious process. 4. Stable partially calcified anterior mediastinal mass, unchanged from 2010, favors a benign process. ACT 112: Negative or not required by law. Electronically signed by: Petar Sy M.D. 04/26/2021 8:29 AM PG Care Time/CCT Total # of Minutes Spent Total Time Spent with Patient: Total time spent is greater than 50% in coordination of care (as documented) at patient's floor/unit and/or counseling patient: 35 minutes including discussion/interview and physical examination of patient as well as discussion with daughter and POA Radha. Coding Level of Care Code 83277 Subseq Hosp Care Lvl 2 (25 - SIGNIFICANT, SEPARATELY IDENTIFIABLE ) Diagnoses Pleural effusion J90 Shortness of breath R06.02 Acute respiratory failure with hypoxia J96.01 Time Spent (min) 35
[2021-04-27] MEDS: CHECK CLONIDINE PATCH PLACEMENT SCH (15:16)
--- NOTE | 2021-04-27 15:28 | Cardiology Progress Note ---
Date of Service April 27, 2021 Assessment & Plan (1) Hypertensive urgency: (2) Pleural effusion on left: (3) COPD (chronic obstructive pulmonary disease): (4) Severe protein-calorie malnutrition: (5) Noncompliance with medication regimen: (6) Subclavian arterial stenosis: (7) Nephrotic syndrome: (8) Chronic anticoagulation: (9) Mitral regurgitation: (10) Mild aortic stenosis: (11) Mild mitral stenosis: (12) DM type 2 (diabetes mellitus, type 2): (13) LBBB (left bundle branch block): Plan: It appears that the patient was once again suffering from hypertensive urgency resulting in chest discomfort which is similar to her previous admission in August of this year. Clonidine was previously discontinued by our nephrology colleagues secondary to patient medication noncompliance. Unfortunately, blood pressure remains significantly elevated and do not see any other choice but to restart clonidine at this time. For ease of use and for outpatient compliance we will start a clonidine patch and titrate up as necessary. Continue all other outpatient medications. Patient was previously on hospice care, not clear through review of chart where we are at with this. She has not showed for 3 outpatient cardiac visits. Our pulmonary colleagues did obtain a CODE STATUS from the patient's daughter today of DNR. Admission and Anticipated Discharge Date Admission Date: April 27, 2021 Subjective Patient seen and examined, chart reviewed. States that her chest pain and headache have resolved. States that breathing is okay but still dyspneic with exertion. Telemetry reviewed: Sinus rhythm with underlying left bundle branch block Review of Systems Review of Systems: All systems reviewed & are unremarkable except as noted in HPI & below Physical Exam Physical Exam: General: Awake, alert and oriented x 3. No acute distress. HEENT: Normocephalic, atraumatic. Pupils equal, round and reactive to light and accommodation. Extraocular muscles are intact. Anicteric sclera. Moist mucous membranes. Neck: No JVD. No bruit. Cardiovascular: Regular. Positive S-4. Normal S-1 and S-2. No S-3. 3/6 holosystolic ejection murmur, left sternal border, mid-clavicular line with radiation to the axilla. No rubs. Pulmonary: Coarse breath sounds diffusely with poor air movement in the bilateral bases and scant crackles Abdomen: Bowel sounds x 4, soft. No rebound, guarding or tenderness. No organomegaly. Extremities: No clubbing, cyanosis or edema. +2 pedal pulses bilaterally. Skin: Warm and dry. Results & Data ([facility]) Vital Signs (Past 12 Hours) Vital Signs Temp Pulse Pulse Resp BP BP Pulse Ox 04/27/21 12:00 36.4 C L 78 24 176/141 H 92 04/27/21 08:29 36.5 C 69 22 190/80 H 99 04/27/21 06:30 68 18 173/53 H 93
--- NOTE | 2021-04-27 16:57 | Hospitalist Progress Note ---
Date of Service April 27, 2021 Assessment & Plan (1) Acute respiratory failure with hypoxia: Plan: 89-year-old lady with significant past medical history as mentioned in H&P presented to ER with shortness of breath and left-sided chest pain Has acute respiratory failure with hypoxia which seems to be multifactorial as below (2) Pleural effusion: Plan: Noted to have bilateral pleural effusion Likely secondary to congestive heart failure Appreciate pulmonary input and recommendation Has been getting aggressive diuresis with intravenous furosemide as advised by block mason Her anticoagulation is on hold for a probable thoracentesis down the line (3) Hypertensive urgency: Plan: She has hypertension and has been very difficult to control Associated chest pain likely secondary to increase in blood pressure on admission Appreciate cardiology input and recommendation Her antidepressant medications were adjusted during her recent admission to the hospital We will monitor blood pressure Carvedilol has been increased recently (4) Left-sided chest pain: Plan: Has occasional chest pain No evidence of ACS (5) CHF due to valvular disease: Plan: He 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 We will continue intravenous Lasix for now (6) DM type 2 (diabetes mellitus, type 2): Plan: SSI We will check hemoglobin A1c (7) Chronic anticoagulation: Plan: She has history of pulmonary embolism, splenic infarct She has been on Eliquis Eliquis is on hold as she may go for thoracentesis down the line (8) COPD (chronic obstructive pulmonary disease): Plan: Is complicating her overall situation We will continue her current medications DVT prophylax Has been on Eliquis CODE STATUS DNR/DNI Admission and Anticipated Discharge Date Admission Date: April 27, 2021 Subjective 04/27/2021 The patient was seen and examined in emergency room in the holding area She has been feeling a little better since admission Remains very anxious but denies any chest pain and/or palpitation Her breathing seems to be stable Review of Systems Review of Systems: All systems reviewed and are unremarkable except as noted below Physical Exam Physical Exam: Lying in bed with minimal respiratory distress Constitutional: + ill appearing and + thin Eyes: PERRL, conjunctivae normal, anicteric sclerae ENMT: external ear and nose normal, oropharynx normal Neck: trachea midline, no thyromegaly Respiratory: + respiratory distress (Mild to moderate respiratory distress at rest) Auscultation: + diminished lung sounds and + crackles (Minimal bibasilar crackles); no wheezes Cardiovascular: Rate/Rhythm: regular rate and regular rhythm; not tachycardic Heart Sounds: normal S1, normal S2 and + murmur (2/6 to 3/6 ESM over precordium) Extremities: + edema (1+ edema bilaterally) Gastrointestinal (Abdomen): Inspection/Auscultation: abdomen not distended Percussion/Palpation: abdomen soft; abdomen nontender Musculoskeletal: No acute arthritis in any joint Neurologic: Alert, awake and oriented x3. She generally very weak and lethargic and is very anxious Lymphatic: no cervical or axillary lymphadenopathy Results & Data Results & Data ([facility]) Vital Signs (Past 12 Hours) Vital Signs Temp Pulse Pulse Resp BP BP Pulse Ox 04/27/21 12:00 36.4 C L 78 24 176/141 H 92 04/27/21 08:29 36.5 C 69 22 190/80 H 99 04/27/21 06:30 68 18 173/53 H 93 Laboratory Results Short CBC 04/27/21 Range/Units 04:54 WBC 6.11 (4.8-10.8) K/uL Hgb 7.9 L (12.0-16.0) g/dL Hct 26.7 L (37-47) % Plt Count 349 (130-400) K/uL BMP 04/27/21 04:54 Sodium 138 Potassium 3.3 L D Chloride 109 H Carbon Dioxide 21 BUN 23 H Creatinine 1.62 H Glucose 90 Calcium 8.5 Medications Administered Current Inpatient Medications Acetaminophen (Acetaminophen 325 Mg Tab) 650 mg PO Q4H PRN PRN Reason: Pain or Fever Stop: 05/26/21 05:08 Last Admin: 04/26/21 17:45 Dose: 650 mg Documented by: Amlodipine Besylate (Amlodipine Besylate 5 Mg Tab) 10 mg PO HS [facility] Stop: 05/26/21 20:59 Last Admin: 04/26/21 20:57 Dose: 10 mg Documented by: Apixaban (Apixaban 2.5 Mg Tab) 2.5 mg PO BID [facility] Stop: 05/26/21 08:59 Last Admin: 04/27/21 08:51 Dose: 2.5 mg Documented by: Artificial Tears (Artificial Tears) 1 drops OP QID PRN PRN Reason: Dry Eye(S) Stop: 05/26/21 05:08 Carvedilol (Carvedilol 12.5 Mg Tab) 12.5 mg PO BID [facility] Stop: 05/27/21 20:59 Clonidine HCl (Clonidine Hcl 0.2 Mg/24 Hr Transderm Sys) 1 patch TD Q7D [facility] Stop: 05/27/21 09:59 Last Admin: 04/27/21 11:40 Dose: 1 patch Documented by: Furosemide (Furosemide 40 Mg/4 Ml Vial) 40 mg IV BID17 [facility] Stop: 05/26/21 16:59 Last Admin: 04/27/21 08:55 Dose: 40 mg Documented by: Hydralazine HCl (Hydralazine Tab 50 Mg Tab) 100 mg PO TID [facility] Stop: 05/26/21 08:59 Last Admin: 04/27/21 13:19 Dose: 100 mg Documented by: Hydromorphone HCl (Hydromorphone Hcl 2 Mg Tab) 1 mg PO Q2H PRN PRN Reason: pain/sob Stop: 05/10/21 05:08 Last Admin: 04/27/21 01:41 Dose: 1 mg Documented by: Ceftriaxone Sodium 1,000 mg/ (Dextrose) 50 mls @ 100 mls/hr IV Q24H [facility]; Protocol Stop: 05/03/21 07:29 Last Infusion: 04/27/21 09:56 Dose: Infused Documented by: Doxycycline Hyclate 100 mg/ (Dextrose) 110 mls @ 50 mls/hr IV Q12H [facility] Stop: 05/03/21 07:59 Last Infusion: 04/27/21 13:38 Dose: Infused Documented by: Isosorbide Dinitrate (Isosorbide Dinitrate 20 Mg Tab) 20 mg PO TID@0700,1200,1700 [facility] Stop: 05/26/21 06:59 Last Admin: 04/27/21 12:06 Dose: 20 mg Documented by: Lorazepam (Lorazepam 0.5 Mg Tab) 0.5 mg PO Q4 PRN PRN Reason: anxiety/ restless/ insomnia Stop: 05/26/21 05:08 Lorazepam (Lorazepam 1 Mg Tab) 1 mg PO TID [facility] Stop: 05/26/21 08:59 Last Admin: 04/27/21 13:19 Dose: 1 mg Documented by: Melatonin (Melatonin 3 Mg Tab) 3 mg PO HS [facility] Stop: 05/26/21 20:59 Last Admin: 04/26/21 20:56 Dose: 3 mg Documented by: Miscellaneous (Remove Clonidine Patch) 1 ea N/A CQWK [facility] Stop: 05/27/21 09:58 Last Admin: 04/27/21 11:47 Dose: Not Given Documented by: Miscellaneous (Check Clonidine Patch Placement) 1 ea N/A QS [facility] Stop: 05/27/21 15:59 Last Admin: 04/27/21 15:16 Dose: 1 ea Documented by: Nitroglycerin (Nitroglycerin Sl 0.4 Mg/Tab Tab) 0.4 mg SL UD PRN PRN Reason: Chest Pain Stop: 05/26/21 05:08 Ondansetron HCl (Ondansetron Inj 2 Mg/Ml 2 Ml Vial) 4 mg IV Q6H PRN PRN Reason: Nausea Stop: 05/26/21 05:08 Pantoprazole Sodium (Pantoprazole 40 Mg Tab) 40 mg PO DAILY [facility] Stop: 05/26/21 08:59 Last Admin: 04/27/21 09:19 Dose: 40 mg Documented by: Quetiapine Fumarate (Quetiapine Fumarate 25 Mg Tablet) 12.5 mg PO DAILY PRN PRN Reason: Agitation Stop: 05/26/21 05:08 Quetiapine Fumarate (Quetiapine Fumarate 25 Mg Tablet) 25 mg PO DAILY@1800 [facility] Stop: 05/26/21 17:59 Last Admin: 04/26/21 17:46 Dose: 25 mg Documented by: Senna/Docusate Sodium (Docusate Sodium/Senna 50/8.6mg Tab) 2 tab PO QAM [facility] Stop: 05/26/21 08:59 Last Admin: 04/27/21 09:10 Dose: 2 tab Documented by: Senna/Docusate Sodium (Docusate Sodium/Senna 50/8.6mg Tab) 1 tab PO PM [facility] Stop: 05/26/21 20:59 Last Admin: 04/26/21 20:57 Dose: 1 tab Documented by: Simethicone (Simethicone 80 Mg Chew) 120 mg PO QID PRN PRN Reason: Gas Last Admin: 04/27/21 08:53 Dose: 120 mg Documented by: Spironolactone (Spironolactone 25 Mg Tab) 25 mg PO DAILY [facility] Stop: 05/26/21 08:59 Last Admin: 04/27/21 08:52 Dose: 25 mg Documented by:
[2021-04-27] MEDS: QUEtiapine FUMARATE 25 MG TABLET PO SCH (17:57)
[2021-04-27] MEDS ORDERED: hydrALAZINE HCL 25 MG TAB ONE (20:17)
[2021-04-27] MEDS: carvediloL 12.5 MG TAB PO SCH (21:02)
[2021-04-27] MEDS: QUEtiapine FUMARATE 25 MG TABLET PO PRN (21:02)
[2021-04-27] MEDS: amLODIPine BESYLATE 5 MG TAB PO SCH (21:02)
[2021-04-27] MEDS: MELATONIN 3 MG TAB PO SCH (21:03)
[2021-04-28] MEDS: CHECK CLONIDINE PATCH PLACEMENT SCH ×3 (00:02→18:02)
[2021-04-28 06:22] LABS: Basophils # (auto) 0.03 K/uL (0-0.2); Basophils % (auto) 0.5 %; Eosinophils # (auto) 0.18 K/uL (0-0.5); Eosinophils % (auto) 2.9 %; Hematocrit (blood only) 29.5 % (37-47); Hemoglobin 9.1 g/dL (12.0-16.0); Immature Granulocytes # (auto) 0.06 K/uL (0.00-0.02); Lymphocytes # (auto) 0.84 K/uL (1.2-3.4); Lymphocytes % (auto) 13.3 %; Mean Corpuscular Hemoglobin 20.4 pg (25-34); Mean Corpuscular Hgb Conc 30.8 g/dL (32-36); Mean Platelet Volume 8.2 fL (7.4-10.4); Monocytes # (auto) 0.71 K/uL (0.11-0.59); Monocytes % (auto) 11.3 %; Neutrophils # (auto) 4.49 K/uL (1.4-6.5); Platelet Count 353 K/uL (130-400); RDW Standard Deviation 50.7 fL (36.4-46.3); Red Blood Count 4.47 M/uL (4.2-5.4); White Blood Count 6.31 K/uL (4.8-10.8)
[2021-04-28 06:50] LABS: Anisocytosis Present; Microcytosis Present
[2021-04-28 07:04] LABS: BUN Creatinine Ratio 13.1 (10-20); Calcium 9.2 mg/dl (8.5-10.1); Creatinine Clr Calc Pharmacy 16.7 ml/min; Est GFR (African American) 29.4 ml/min; Est GFR (Non-African American) 25.4 ml/min; Magnesium 1.9 mg/dl (1.8-2.4); Phosphorus 3.8 mg/dl (2.5-4.9); Potassium 3.6 mmol/L (3.5-5.1)
--- NOTE | 2021-04-28 09:16 | Pulmonology Progress Note ---
Date of Service April 28, 2021 Assessment & Plan (1) Pleural effusion: (2) Shortness of breath: (3) Acute respiratory failure with hypoxia: Plan: Impression: 89-year-old female admitted with hypertensive urgency. Work-up revealed bilateral effusions. She is chronically anticoagulated for remote history of PE. Recommendations: 1. Bilateral pleural effusions: These appear to be related to diastolic heart failure and appear to be improving with uncontrolled blood pressure and diuretics. She is minimally symptomatic currently and there is no indication for thoracentesis at present. Would target aggressive blood pressure control with target is less than 125/75 given her diastolic dysfunction. 2. Acute hypoxic respiratory failure: Patient uses oxygen at night on a regular basis but she is unclear how much she uses. She may be approaching her baseline. 3. History of tobacco abuse: Possible COPD. May be reasonable to consider PFTs in the outpatient setting. She is not bronchospastic and there is no indication for systemic steroids or antimicrobial agents currently. 4. History of pulmonary embolism: It is unclear if the patient requires long- term anticoagulation. With a solitary questionable unprovoked event, risk- benefit ratio may favor discontinuation of anticoagulation at this point time. As per previous notes, would recommend review of prior records and potential consideration for outpatient hematology evaluation to determine whether or not anticoagulation should be continued in this frail 89-year-old female. As I do not anticipate any invasive procedures currently, the patient can resume anticoagulation if the primary service feels it is warranted. 5. Pulmonary hypertension, likely type II given her significant valvular disease. Her echocardiogram showed an EF of 45-50 with grade 1 diastolic dysfunction and mild aortic stenosis with moderate aortic insufficiency as well as mild mitral stenosis and moderate mitral regurgitation. This point time the patient appears to be approaching her clinical baseline. Recommend out of bed and ambulatory as tolerated. Review of the notes indicates that the patient previously was on hospice. It may be appropriate to review goals of therapy with the patient and her daughter. Pulmonary will sign off at this point in time. Feel free to contact us if we can be of additional assistance Admission and Anticipated Discharge Date Admission Date: April 27, 2021 Subjective Patient seen and examined. EMR reviewed. Patient is sleeping supine comfortably. She arouses easily. She denies any respiratory distress. She thinks her breathing is doing fine. She is tolerating a diet. She is not had any chest pain or palpitations. No significant lower extremity edema. Review of Systems Review of Systems: All systems reviewed & are unremarkable except as noted in Subjective Physical Exam Physical Exam: Lying in bed with minimal respiratory distress Constitutional: + thin; not ill appearing Neck: trachea midline, no thyromegaly Respiratory: normal respiratory effort; no respiratory distress and not tachypneic Auscultation: + diminished lung sounds and + crackles (Minimal bibasilar crackles); no wheezes Cardiovascular: Rate/Rhythm: regular rate and regular rhythm; not tachycardic Heart Sounds: normal S1, normal S2 and + murmur (2/6 to 3/6 ESM over precordium) Extremities: + edema (1+ edema bilaterally) Gastrointestinal (Abdomen): Inspection/Auscultation: abdomen not distended Percussion/Palpation: abdomen soft; abdomen nontender Neurologic: Alert, awake and oriented x3. She generally very weak Lymphatic: no cervical or axillary lymphadenopathy Results & Data Results & Data ([facility]) Vital Signs (Past 12 Hours) Vital Signs Pulse Resp BP Pulse Ox Pulse Ox 04/28/21 05:30 162/70 H 04/28/21 05:02 61 16 98 98 04/28/21 03:03 68 16 182/77 H 94 04/28/21 01:04 63 14 171/67 H 99 04/27/21 23:12 64 14 189/64 H 95 Critical Care Results & Data Vital Signs (Past 12 Hours) Vital Signs Pulse Resp BP Pulse Ox Pulse Ox 04/28/21 05:30 162/70 H 04/28/21 05:02 61 16 98 98 04/28/21 03:03 68 16 182/77 H 94 04/28/21 01:04 63 14 171/67 H 99 04/27/21 23:12 64 14 189/64 H 95 Lab & Micro Results (Past 24 Hours) RBC 4.47 M/uL (4.2-5.4) 04/28/21 WBC 6.31 K/uL (4.8-10.8) 04/28/21 Hgb 9.1 g/dL (12.0-16.0) L 04/28/21 Hct 29.5 % (37-47) L 04/28/21 MCV 66.0 fL (80-100) L 04/28/21 MCH 20.4 pg (25-34) L 04/28/21 MCHC 30.8 g/dL (32-36) L 04/28/21 RDW Standard Deviation 50.7 fL (36.4-46.3) H 04/28/21 RDW Coefficient of Variation 21.0 % (11.5-14.5) H 04/28/21 Plt Count 353 K/uL (130-400) 04/28/21 MPV 8.2 fL (7.4-10.4) 04/28/21 Neutrophils (%) (Auto) 71.0 % 04/28/21 Lymphocytes (%) (Auto) 13.3 % 04/28/21 Monocytes # (Auto) 0.71 K/uL (0.11-0.59) H 04/28/21 Eosinophils # (Auto) 0.18 K/uL (0-0.5) 04/28/21 Immature Granulocyte % (Auto) 1.0 % 04/28/21 Neutrophils # (Auto) 4.49 K/uL (1.4-6.5) 04/28/21 Lymphocytes # (Auto) 0.84 K/uL (1.2-3.4) L 04/28/21 Monocytes # (Auto) 0.71 K/uL (0.11-0.59) H 04/28/21 Eosinophils # (Auto) 0.18 K/uL (0-0.5) 04/28/21 Basophils # (Auto) 0.03 K/uL (0-0.2) 04/28/21 Immature Granulocyte # (Auto) 0.06 K/uL (0.00-0.02) H 04/28/21 Anisocytosis Present 04/28/21 Microcytosis Present 04/28/21 Na 137 mmol/L (136-145) 04/28/21 K 3.6 mmol/L (3.5-5.1) 04/28/21 Cl 107 mmol/L (98-107) 04/28/21 CO2 21 mmol/L (21-32) 04/28/21 Anion Gap 9.0 (3-11) 04/28/21 BUN 23 mg/dl (7-18) H 04/28/21 Creatinine 1.75 mg/dl (0.6-1.2) H 04/28/21 Estimated GFR ( Amer) 29.4 ml/min 04/28/21 Estimated GFR (Non-Af Amer) 25.4 ml/min 04/28/21 BUN/Creatinine Ratio 13.1 (10-20) 04/28/21 Glu 95 mg/dl (70-99) 04/28/21 Ca 9.2 mg/dl (8.5-10.1) 04/28/21 Phosphorus Level 3.8 mg/dl (2.5-4.9) 04/28/21 Mg 1.9 mg/dl (1.8-2.4) 04/28/21 05:47 04/28/21 Calcium Level 9.2 mg/dl (8.5-10.1) 04/28/21 05:47 04/28/21 I & O Totals 24 Hours 04/27/21 04/28/21 04/29/21 06:59 06:59 06:59 Intake Total 270 / 270 510 / 510 Output Total 1925 / 1925 3050 / 3050 Balance -1655 / -1655 -2540 / -2540 Cumulative 04/26/21 00:05 thru 04/28/21 06:07 Intake Total 1280 Output Total 4975 Balance -3695 RT Ventilator Mngmt (Last Documented) Ventilator Ordered Settings Respiratory Rate 16 04/28/21 05:02 Fraction of Inspired Oxygen 4 04/27/21 12:00 Ventilator - PT Measurements Respiratory Rate 16 PG Care Time/CCT Total # of Minutes Spent Total Time Spent with Patient: Total time spent is greater than 50% in coordination of care (as documented) at patient's floor/unit and/or counseling patient: Coding Level of Care Code 42658 Subseq Hosp Care Lvl 2 Diagnoses Pleural effusion J90 Shortness of breath R06.02 Acute respiratory failure with hypoxia J96.01
[2021-04-28] MEDS: carvediloL 12.5 MG TAB PO SCH ×2 (09:42→21:42)
[2021-04-28] MEDS: cefTRIAXone SODIUM 1,000 MG in DEXTROSE 5% 50 ML IV SCH (09:42)
[2021-04-28] MEDS: DOCUSATE SODIUM/SENNA 50/8.6MG TAB PO SCH ×2 (09:43→21:42)
[2021-04-28] MEDS: hydrALAZINE TAB 50 MG TAB PO SCH ×3 (09:43→21:43)
[2021-04-28] MEDS: FUROSEMIDE 40 MG/4 ML VIAL IV SCH ×2 (09:44→17:29)
[2021-04-28] MEDS: ISOSORBIDE DINITRATE 20 MG TAB PO SCH ×3 (09:44→17:29)
[2021-04-28] MEDS: LORazepam 1 MG TAB PO SCH ×3 (09:45→21:48)
[2021-04-28] MEDS: DOXYCYCLINE HYCLATE 100 MG in DEXTROSE 5% 100 ML IV SCH ×2 (09:45→21:40)
[2021-04-28] MEDS ORDERED: cloNIDine HCL 0.3 MG/24 HR TRANSDERM SYS TD SCH (12:00)
--- NOTE | 2021-04-28 14:54 | Hospitalist Progress Note ---
Date of Service April 28, 2021 Assessment & Plan (1) Acute respiratory failure with hypoxia: Plan: 89-year-old lady with significant past medical history as mentioned in H&P presented to ER with shortness of breath and left-sided chest pain Has acute respiratory failure with hypoxia which seems to be multifactorial as below Symptomatically better and has been requiring up to 3 L of oxygen to maintain saturation (2) Pleural effusion: Plan: Noted to have bilateral pleural effusion Likely secondary to congestive heart failure Appreciate pulmonary input and recommendation Has been getting aggressive diuresis with intravenous furosemide as advised by electric shipyard operator Her anticoagulation is on hold for a probable thoracentesis down the line No indication of thoracentesis as per the pulmonary service We will restart Eliquis (3) Hypertensive urgency: Plan: She has hypertension and has been very difficult to control Associated chest pain likely secondary to increase in blood pressure on admission Appreciate cardiology input and recommendation Her antidepressant medications were adjusted during her recent admission to the hospital We will monitor blood pressure Carvedilol has been increased recently Has been getting clonidine patch on top of carvedilol Blood pressure remains elevated will monitor Chronic kidney disease stage IV Has been getting intravenous Lasix for diuresis We will monitor PRP (4) Left-sided chest pain: Plan: Has occasional chest pain No evidence of ACS Denies any more chest pain (5) CHF due to valvular disease: Plan: And Acute on chronic diastolic heart failure He 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 We will continue intravenous Lasix for now monitor PRP (6) DM type 2 (diabetes mellitus, type 2): Plan: SSI We will check hemoglobin A1c (7) Chronic anticoagulation: Plan: She has history of pulmonary embolism, splenic infarct She has been on Eliquis (8) COPD (chronic obstructive pulmonary disease): Plan: Is complicating her overall situation We will continue her current medications DVT prophylax Has been on Eliquis CODE STATUS DNR/DNI Discussed with the daughter We will get PT and OT evaluation and discharge planning in a day or 2 Admission and Anticipated Discharge Date Admission Date: April 27, 2021 Subjective 04/27/2021 The patient was seen and examined in emergency room in the holding area She has been feeling a little better since admission Remains very anxious but denies any chest pain and/or palpitation Her breathing seems to be stable 04/28/2021 The patient was seen and examined in emergency room in the [facility] area She has been feeling much better today Denies any chest pain, palpitation or shortness of breath at rest Her blood pressure remains elevated though Review of Systems Review of Systems: All systems reviewed and are unremarkable except as noted below Physical Exam Physical Exam: Lying in bed without any respiratory distress Constitutional: + ill appearing and + thin Eyes: PERRL, conjunctivae normal, anicteric sclerae ENMT: external ear and nose normal, oropharynx normal Neck: trachea midline, no thyromegaly Respiratory: + respiratory distress (Mild to moderate respiratory distress at rest) Auscultation: + diminished lung sounds and + crackles (Minimal bibasilar crackles); no wheezes Cardiovascular: Rate/Rhythm: regular rate and regular rhythm; not tachycardic Heart Sounds: normal S1, normal S2 and + murmur (2/6 to 3/6 ESM over precordium) Extremities: + edema (1+ edema bilaterally) Gastrointestinal (Abdomen): Inspection/Auscultation: abdomen not distended Percussion/Palpation: abdomen soft; abdomen nontender Musculoskeletal: No acute arthritis in any joint Neurologic: Alert, awake and oriented x3. She generally very weak and lethargic Lymphatic: no cervical or axillary lymphadenopathy Results & Data Results & Data ([facility]) Vital Signs (Past 12 Hours) Vital Signs Pulse Resp BP BP Pulse Ox Pulse Ox 04/28/21 08:00 89 16 190/114 H 91 04/28/21 05:30 162/70 H 04/28/21 05:02 61 16 98 98 04/28/21 03:03 68 16 182/77 H 94 Laboratory Results Short CBC 04/28/21 Range/Units 05:47 WBC 6.31 (4.8-10.8) K/uL Hgb 9.1 L (12.0-16.0) g/dL Hct 29.5 L (37-47) % Plt Count 353 (130-400) K/uL BMP 04/28/21 05:47 Sodium 137 Potassium 3.6 Chloride 107 Carbon Dioxide 21 BUN 23 H Creatinine 1.75 H Glucose 95 Calcium 9.2 Medications Administered Current Inpatient Medications Acetaminophen (Acetaminophen 325 Mg Tab) 650 mg PO Q4H PRN PRN Reason: Pain or Fever Stop: 05/26/21 05:08 Last Admin: 04/26/21 17:45 Dose: 650 mg Documented by: Amlodipine Besylate (Amlodipine Besylate 5 Mg Tab) 10 mg PO HS [facility] Stop: 05/26/21 20:59 Last Admin: 04/27/21 21:02 Dose: 10 mg Documented by: Apixaban (Apixaban 2.5 Mg Tab) 2.5 mg PO BID [facility] Stop: 05/26/21 08:59 Last Admin: 04/27/21 08:51 Dose: 2.5 mg Documented by: Artificial Tears (Artificial Tears) 1 drops OP QID PRN PRN Reason: Dry Eye(S) Stop: 05/26/21 05:08 Carvedilol (Carvedilol 12.5 Mg Tab) 12.5 mg PO BID [facility] Stop: 05/27/21 20:59 Last Admin: 04/28/21 09:42 Dose: 12.5 mg Documented by: Clonidine HCl (Clonidine Hcl 0.3 Mg/24 Hr Transderm Sys) 1 patch TD Q7D [facility] Stop: 05/28/21 11:59 Furosemide (Furosemide 40 Mg/4 Ml Vial) 40 mg IV BID17 [facility] Stop: 05/26/21 16:59 Last Admin: 04/28/21 09:44 Dose: 40 mg Documented by: Hydralazine HCl (Hydralazine Tab 50 Mg Tab) 100 mg PO TID [facility] Stop: 05/26/21 08:59 Last Admin: 04/28/21 09:43 Dose: 100 mg Documented by: Hydromorphone HCl (Hydromorphone Hcl 2 Mg Tab) 1 mg PO Q2H PRN PRN Reason: pain/sob Stop: 05/10/21 05:08 Last Admin: 04/27/21 01:41 Dose: 1 mg Documented by: Ceftriaxone Sodium 1,000 mg/ (Dextrose) 50 mls @ 100 mls/hr IV Q24H [facility]; Protocol Stop: 05/03/21 07:29 Last Infusion: 04/28/21 10:12 Dose: Infused Documented by: Doxycycline Hyclate 100 mg/ (Dextrose) 110 mls @ 50 mls/hr IV Q12H [facility] Stop: 05/03/21 07:59 Last Admin: 04/28/21 09:45 Dose: 50 mls/hr Documented by: Isosorbide Dinitrate (Isosorbide Dinitrate 20 Mg Tab) 20 mg PO TID@0700,1200,1700 [facility] Stop: 05/26/21 06:59 Last Admin: 04/28/21 09:44 Dose: 20 mg Documented by: Lorazepam (Lorazepam 0.5 Mg Tab) 0.5 mg PO Q4 PRN PRN Reason: anxiety/ restless/ insomnia Stop: 05/26/21 05:08 Lorazepam (Lorazepam 1 Mg Tab) 1 mg PO TID [facility] Stop: 05/26/21 08:59 Last Admin: 04/28/21 09:45 Dose: 1 mg Documented by: Melatonin (Melatonin 3 Mg Tab) 3 mg PO HS [facility] Stop: 05/26/21 20:59 Last Admin: 04/27/21 21:03 Dose: 3 mg Documented by: Miscellaneous (Remove Clonidine Patch) 1 ea N/A CQWK [facility] Stop: 05/28/21 11:58 Miscellaneous (Check Clonidine Patch Placement) 1 ea N/A QS [facility] Stop: 05/28/21 15:59 Nitroglycerin (Nitroglycerin Sl 0.4 Mg/Tab Tab) 0.4 mg SL UD PRN PRN Reason: Chest Pain Stop: 05/26/21 05:08 Ondansetron HCl (Ondansetron Inj 2 Mg/Ml 2 Ml Vial) 4 mg IV Q6H PRN PRN Reason: Nausea Stop: 05/26/21 05:08 Pantoprazole Sodium (Pantoprazole 40 Mg Tab) 40 mg PO DAILY [facility] Stop: 05/26/21 08:59 Last Admin: 04/27/21 09:19 Dose: 40 mg Documented by: Quetiapine Fumarate (Quetiapine Fumarate 25 Mg Tablet) 12.5 mg PO DAILY PRN PRN Reason: Agitation Stop: 05/26/21 05:08 Last Admin: 04/27/21 21:02 Dose: 12.5 mg Documented by: Quetiapine Fumarate (Quetiapine Fumarate 25 Mg Tablet) 25 mg PO DAILY@1800 [facility] Stop: 05/26/21 17:59 Last Admin: 04/27/21 17:57 Dose: 25 mg Documented by: Senna/Docusate Sodium (Docusate Sodium/Senna 50/8.6mg Tab) 2 tab PO QAM [facility] Stop: 05/26/21 08:59 Last Admin: 04/28/21 09:43 Dose: 2 tab Documented by: Senna/Docusate Sodium (Docusate Sodium/Senna 50/8.6mg Tab) 1 tab PO PM [facility] Stop: 05/26/21 20:59 Last Admin: 04/27/21 21:02 Dose: 1 tab Documented by: Simethicone (Simethicone 80 Mg Chew) 120 mg PO QID PRN PRN Reason: Gas Last Admin: 04/27/21 08:53 Dose: 120 mg Documented by: Spironolactone (Spironolactone 25 Mg Tab) 25 mg PO DAILY [facility] Stop: 05/26/21 08:59 Last Admin: 04/27/21 08:52 Dose: 25 mg Documented by:
[2021-04-28] MEDS: SPIRONOLACTONE 25 MG TAB PO SCH (15:25)
--- NOTE | 2021-04-28 16:51 | Cardiology Progress Note ---
Date of Service April 28, 2021 Assessment & Plan (1) Hypertensive urgency: (2) Pleural effusion on left: (3) COPD (chronic obstructive pulmonary disease): (4) Severe protein-calorie malnutrition: (5) Noncompliance with medication regimen: (6) Subclavian arterial stenosis: (7) Nephrotic syndrome: (8) Chronic anticoagulation: (9) Mitral regurgitation: (10) Mild aortic stenosis: (11) Mild mitral stenosis: (12) DM type 2 (diabetes mellitus, type 2): (13) LBBB (left bundle branch block): Plan: It appears that the patient was once again suffering from hypertensive urgency resulting in chest discomfort which is similar to her previous admission in August of this year. Clonidine was previously discontinued by our nephrology colleagues secondary to patient medication noncompliance. Unfortunately, blood pressure remains significantly elevated despite addition of clonidine patch Will increase clonidine patch to 0.3 mcg per 24 hours Continue all other outpatient medications. Patient was previously on hospice care, not clear through review of chart where we are at with this. She has not showed for 3 outpatient cardiac visits. Our pulmonary colleagues did obtain a CODE STATUS from the patient's daughter today of DNR. Admission and Anticipated Discharge Date Admission Date: April 27, 2021 Subjective Patient seen and examined, chart reviewed. States that she is feeling better today and that her breathing is approaching baseline. Denies chest pain or palpitations. Review of Systems Review of Systems: All systems reviewed & are unremarkable except as noted in HPI & below Physical Exam Physical Exam: General: Awake, alert and oriented x 3. No acute distress. HEENT: Normocephalic, atraumatic. Pupils equal, round and reactive to light and accommodation. Extraocular muscles are intact. Anicteric sclera. Moist mucous membranes. Neck: No JVD. No bruit. Cardiovascular: Regular. Positive S-4. Normal S-1 and S-2. No S-3. 3/6 holosystolic ejection murmur, left sternal border, mid-clavicular line with radiation to the axilla. No rubs. Pulmonary: Coarse breath sounds diffusely with poor air movement in the bilateral bases and scant crackles Abdomen: Bowel sounds x 4, soft. No rebound, guarding or tenderness. No organomegaly. Extremities: No clubbing, cyanosis or edema. +2 pedal pulses bilaterally. Skin: Warm and dry. Results & Data ([facility]) Vital Signs (Past 12 Hours) Vital Signs Pulse Resp BP BP Pulse Ox Pulse Ox 04/28/21 08:00 89 16 190/114 H 91 04/28/21 05:30 162/70 H 04/28/21 05:02 61 16 98 98
[2021-04-28] MEDS: PANTOprazole 40 MG TAB PO SCH (17:21)
[2021-04-28] MEDS: QUEtiapine FUMARATE 25 MG TABLET PO SCH (17:37)
[2021-04-28] MEDS: amLODIPine BESYLATE 5 MG TAB PO SCH (21:40)
[2021-04-28] MEDS: APIXABAN 2.5 MG TAB PO SCH (21:41)
[2021-04-28] MEDS: MELATONIN 3 MG TAB PO SCH (21:44)
[2021-04-28] MEDS ORDERED: diphenhydrAMINE HCL 25 MG/10 ML UDC PO ONE (23:11)
[2021-04-28] MEDS ORDERED: diphenhydrAMINE HCl 12.5 MG/5 ML UDC PO ONE (23:30)
[2021-04-29] MEDS: CHECK CLONIDINE PATCH PLACEMENT SCH ×3 (00:09→16:39)
[2021-04-29 06:31] LABS: BUN Creatinine Ratio 13.3 (10-20); Calcium 9.1 mg/dl (8.5-10.1); Est GFR (African American) 27.9 ml/min; Magnesium 1.8 mg/dl (1.8-2.4); Potassium 3.3 mmol/L (3.5-5.1)
[2021-04-29 07:39] LABS: Estimated Average Glucose 151 mg/dl; Hemoglobin A1C 6.9 % (4.5-5.6)
[2021-04-29] MEDS: PANTOprazole 40 MG TAB PO SCH (08:48)
[2021-04-29] MEDS: hydrALAZINE TAB 50 MG TAB PO SCH ×3 (08:48→21:57)
[2021-04-29] MEDS: SPIRONOLACTONE 25 MG TAB PO SCH ×2 (08:48→11:10)
[2021-04-29] MEDS: LORazepam 1 MG TAB PO SCH ×3 (08:49→22:03)
[2021-04-29] MEDS: FUROSEMIDE 40 MG/4 ML VIAL IV SCH (08:49)
[2021-04-29] MEDS: POTASSIUM CHLORIDE CRTAB 20 MEQ TABCR PO SCH ×2 (08:49→22:03)
[2021-04-29] MEDS: DOCUSATE SODIUM/SENNA 50/8.6MG TAB PO SCH ×2 (08:49→21:56)
[2021-04-29] MEDS: carvediloL 12.5 MG TAB PO SCH ×2 (08:49→21:56)
[2021-04-29] MEDS: ISOSORBIDE DINITRATE 20 MG TAB PO SCH ×3 (08:49→18:19)
[2021-04-29] MEDS: APIXABAN 2.5 MG TAB PO SCH ×2 (08:50→21:58)
[2021-04-29] MEDS: lisinopril 20 MG TAB PO SCH (11:09)
--- NOTE | 2021-04-29 11:16 | Consultation Report ---
NEPHROLOGY CONSULTATION NOTE DATE OF SERVICE: 04/29/2021 REASON FOR CONSULT: Uncontrolled hypertension. HISTORY OF PRESENT ILLNESS: The patient is an 89-year-old female with a longstanding hypertension, w hich is difficult to control. She presented to the hospital 3 days ago with headache and chest pain and was found to be in hypertensive urgency. At this time, the patient is not able to give me any his tory. She is confused and she has one-on-one nursing care at this time. ALLERGIES: PENICILLIN, QUINOLONE, ASPIRIN. PAST MEDICAL AND SURGICAL HISTORY: Includes COPD, heart failure due to valvular heart disease, hyper tension - difficult to control, GERD, female stress incontinence, history of pulmonary embolism, appe ndicectomy, left rotator cuff repair, gastric ulcer repair, total hysterectomy. MEDICATIONS: At home include amlodipine 10 daily, Lipitor 20 daily, Protonix 40 daily, cetirizine, L asix 20 p.o. daily, lisinopril 20 mg daily, potassium chloride 10 mEq daily, Eliquis 2.5 twice daily, hydralazine 100 twice daily, isosorbide 20 twice daily, Coreg 6.25 twice daily and ProAir 2 puffs. FAMILY HISTORY: Significant for COPD in sister, otherwise unremarkable. SOCIAL HISTORY: , lives with her daughter. Former smoker, quit smoking 30 years ago. Curren lukas, no alcohol, no drugs. REVIEW OF SYSTEMS: Unable to obtain as the patient is not able to give me any history. PHYSICAL EXAMINATION: GENERAL: Elderly white female who predominantly speaks Afghan. VITAL SIGNS: Blood pressure is 182/69, pulse rate 68, oxygen saturation 96% on room air. HEENT: Mucous membrane is moist. NECK: Supple. No jugular venous distention. CHEST: Bilateral decreased breath sound, but she barely took any inspiratory effort, so a poor quali ty exam. CARDIOVASCULAR: S1 and S2, regular. Systolic murmur heard. ABDOMEN: Soft, nontender. EXTREMITIES: Show no edema. LABORATORY TEST: Sodium 136, potassium 3.3, BUN 24, creatinine is 1.83 and this is similar to her [place]. Hemoglobin 9.1. ASSESSMENT AND PLAN: An 89-year-old female with a longstanding hypertension, which has been difficul t to control. She presented to the hospital with hypertensive urgency with chest pain and headache. I have been consulted for blood pressure management. Hypertensive urgency: The patient is already on a pretty aggressive regimen, which includes amlodipi ne, hydralazine, carvedilol, clonidine, Lasix, spironolactone, and isosorbide. She also takes lisino pril at home, which she is not getting at this time and can be started. I would also check her stand ing blood pressure if possible at least one time to help guide hypertension treatment in this frail e lderly patient. Increase the dose of spironolactone to 50 daily, change the Lasix to 40 twice daily oral tablet and we will continue to titrate her blood pressure regimen. It is quite possible we may have to accept a much higher blood pressure than ideal. My goal is as long as we get it under 160 sys tolic, will be acceptable. Job ID: [id number]
--- NOTE | 2021-04-29 11:25 | Electrocardiogram Report ---
Test Reason : Blood Pressure : / mmHG Vent. Rate : 068 BPM Atrial Rate : 068 BPM P-R Int : 152 ms QRS Dur : 166 ms QT Int : 488 ms P-R-T Axes : 034 -34 130 degrees QTc Int : 518 ms Normal sinus rhythm Possible Left atrial enlargement Left axis deviation Left bundle branch block Abnormal ECG When compared with ECG of 27-APR-2021 09:52, No significant change was found Confirmed by Caleb Sauer ([id number]) on 04/29/2021 11:25:13 AM Referred By: REFERRED SELF Confirmed By:Eliezer Sauer
--- NOTE | 2021-04-29 11:42 | Cardiology Progress Note ---
Date of Service April 29, 2021 Assessment & Plan (1) Hypertensive urgency: (2) Pleural effusion on left: (3) COPD (chronic obstructive pulmonary disease): (4) Severe protein-calorie malnutrition: (5) Noncompliance with medication regimen: (6) Subclavian arterial stenosis: (7) Nephrotic syndrome: (8) Chronic anticoagulation: (9) Mitral regurgitation: (10) Mild aortic stenosis: (11) Mild mitral stenosis: (12) DM type 2 (diabetes mellitus, type 2): (13) LBBB (left bundle branch block): Plan: It appears that the patient was once again suffering from hypertensive urgency resulting in chest discomfort which is similar to her previous admission in August of this year. Appreciate input from our nephrology colleagues Remains hypertensive despite up titration of clonidine patch. Given current clinical decline would recommend discussion with her daughter on hospice care which she was previously on. Admission and Anticipated Discharge Date Admission Date: April 27, 2021 Subjective Patient seen and examined, chart reviewed. Patient currently confused and unable to respond to questioning appropriately. Physical Exam Physical Exam: General: Confused, minimally responsive to verbal stimuli HEENT: Normocephalic, atraumatic. Pupils equal, round and reactive to light and accommodation. Extraocular muscles are intact. Anicteric sclera. Moist mucous membranes. Neck: No JVD. No bruit. Cardiovascular: Regular. Positive S-4. Normal S-1 and S-2. No S-3. 3/6 holosystolic ejection murmur, left sternal border, mid-clavicular line with radiation to the axilla. No rubs. Pulmonary: Coarse breath sounds diffusely with poor air movement in the bilateral bases and scant crackles Abdomen: Bowel sounds x 4, soft. No rebound, guarding or tenderness. No organomegaly. Extremities: No clubbing, cyanosis or edema. +2 pedal pulses bilaterally. Skin: Warm and dry. Results & Data ([facility]) Vital Signs (Past 12 Hours) Vital Signs Temp Pulse Pulse Pulse Resp BP BP 04/29/21 10:39 37.3 C 92 H 18 128/83 04/29/21 10:30 36.7 C 72 19 148/61 H 04/29/21 07:26 37 C 68 16 182/69 H 04/28/21 23:48 78 Pulse Ox 04/29/21 10:39 93 04/29/21 10:30 93 04/29/21 07:26 96 04/28/21 23:48
[2021-04-29] MEDS: hydrOXYzine HCl 10 MG TAB PO PRN (12:35)
[2021-04-29] MEDS: ACETAMINOPHEN 325 MG TAB PO PRN (13:25)
[2021-04-29] MEDS: FUROSEMIDE 40 MG TAB PO SCH (18:18)
[2021-04-29] MEDS: QUEtiapine FUMARATE 25 MG TABLET PO SCH (18:20)
--- NOTE | 2021-04-29 19:06 | Hospitalist Progress Note ---
Date of Service April 29, 2021 Assessment & Plan (1) Acute respiratory failure with hypoxia: Plan: Patient is a 89 yr female who presented with shortness of breath and left-sided chest pain Hypoxia resolved Currently on room air (2) Pleural effusion: Plan: B/L Pleural effusion Acute on chronic diastolic CHF --ECHO: Severe concentric LVH, EF 45 to 50%, grade 1 diastolic dysfunction, mild aortic stenosis with moderate aortic regurgitation, mild mitral stenosis, moderate mitral regurgitation, moderate left atrial enlargement, moderate left pleural effusion significant pulmonary hypertension --IV lasix transitioned to PO No indication of thoracentesis as per the pulmonary Appreciate Cardiology/Nephrology Input (3) Hypertensive urgency: Plan: Chest pain likely secondary uncontrolled HTN On amlodipine, hydralazine, carvedilol, clonidine Also on Lasix, spironolactone, isosorbide Is also on lisinopril at home--which is restarted Spironolactone dose increased to 50 mg daily Appreciate cardiology, nephrology input Chronic kidney disease stage IV Monitor renal function (4) Left-sided chest pain: Plan: No evidence of ACS (5) CHF due to valvular disease: Plan: Management as above (6) DM type 2 (diabetes mellitus, type 2): Plan: SSI HbA1C: 6.9 No tight glycemic control needed given advanced age (7) Chronic anticoagulation: Plan: H/O Pulmonary embolism, 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 (8) COPD (chronic obstructive pulmonary disease): Plan: Continue current medications DVT Px: On Eliquis CODE STATUS DNR/DNI Admission and Anticipated Discharge Date Admission Date: April 27, 2021 Subjective Patient is seen and examined at bedside Sitter at bedside Had transient pleuritic chest discomfort this morning Also reports itching Offers no other complaints Review of Systems Review of Systems: All systems reviewed & are unremarkable except as noted in Subjective Physical Exam Physical Exam: Physical Exam: Vitals signs as noted above General Appearance:Moderately built and nourished, Elderly, chronic ill appearing Head: normocephalic, Atraumatic Eyes: normal inspection, EOMI Neck: supple, Trachea midline Respiratory/Chest: Decreased breath sounds, minimal basal crackles Cardiovascular: S1, S2, + murmur Abdomen/GI:Soft, Non tender, Bowel sounds present Extremities/Musculoskeletal:normal inspection, Trace edema Neurologic/Psych:AAOX3, grossly no focal neurological deficits Skin: normal color, warm Results & Data Results & Data ([facility]) Vital Signs (Past 12 Hours) Vital Signs Temp Pulse Pulse Pulse Resp BP BP 04/29/21 15:59 61 04/29/21 15:49 36.9 C 80 20 126/79 04/29/21 12:18 04/29/21 10:39 37.3 C 92 H 18 128/83 04/29/21 10:30 36.7 C 72 19 148/61 H 04/29/21 07:26 37 C 68 16 182/69 H Pulse Ox Pulse Ox Pulse Ox 04/29/21 15:59 04/29/21 15:49 99 04/29/21 12:18 96 91 04/29/21 10:39 93 04/29/21 10:30 93 04/29/21 07:26 96 Laboratory Results BMP 04/29/21 05:44 Sodium 136 Potassium 3.3 L Chloride 104 Carbon Dioxide 24 BUN 24 H Creatinine 1.83 H Glucose 103 H Calcium 9.1
[2021-04-29] MEDS: amLODIPine BESYLATE 5 MG TAB PO SCH (21:56)
[2021-04-29] MEDS: MELATONIN 3 MG TAB PO SCH (21:56)
[2021-04-30] MEDS: CHECK CLONIDINE PATCH PLACEMENT SCH ×4 (00:27→23:04)
[2021-04-30] MEDS: QUEtiapine FUMARATE 25 MG TABLET PO PRN (01:52)
[2021-04-30 07:29] LABS: Hematocrit (blood only) 30.4 % (37-47); Hemoglobin 9.2 g/dL (12.0-16.0); Mean Corpuscular Hemoglobin 20.2 pg (25-34); Mean Corpuscular Hgb Conc 30.3 g/dL (32-36); Mean Corpuscular Volume 66.8 fL (80-100); Mean Platelet Volume 8.5 fL (7.4-10.4); Platelet Count 343 K/uL (130-400); RDW Coefficient of Variation 21.3 % (11.5-14.5); Red Blood Count 4.55 M/uL (4.2-5.4); White Blood Count 7.86 K/uL (4.8-10.8)
[2021-04-30] MEDS: ISOSORBIDE DINITRATE 20 MG TAB PO SCH ×4 (07:42→18:25)
[2021-04-30 07:56] LABS: Calcium 8.8 mg/dl (8.5-10.1); Creatinine Clr Calc Pharmacy 11.2 ml/min; Est GFR (African American) 18.2 ml/min; Est GFR (Non-African American) 15.7 ml/min
[2021-04-30] MEDS: LORazepam 1 MG TAB PO SCH ×3 (08:38→21:21)
[2021-04-30] MEDS: POTASSIUM CHLORIDE CRTAB 20 MEQ TABCR PO SCH ×2 (08:38→21:29)
[2021-04-30] MEDS: ACETAMINOPHEN 325 MG TAB PO PRN ×2 (08:38→15:12)
[2021-04-30] MEDS: APIXABAN 2.5 MG TAB PO SCH ×2 (08:39→21:29)
[2021-04-30] MEDS: SPIRONOLACTONE 25 MG TAB PO SCH (08:39)
[2021-04-30] MEDS: hydrALAZINE TAB 50 MG TAB PO SCH ×3 (08:39→21:29)
[2021-04-30] MEDS: FUROSEMIDE 40 MG TAB PO SCH ×2 (08:39→18:06)
[2021-04-30] MEDS: PANTOprazole 40 MG TAB PO SCH (08:39)
[2021-04-30] MEDS: lisinopril 20 MG TAB PO SCH (08:39)
[2021-04-30] MEDS: DOCUSATE SODIUM/SENNA 50/8.6MG TAB PO SCH ×2 (08:40→21:24)
[2021-04-30] MEDS: carvediloL 12.5 MG TAB PO SCH ×2 (08:40→21:23)
[2021-04-30] MEDS: LORazepam 0.5 MG TAB PO PRN ×2 (11:21→18:25)
--- NOTE | 2021-04-30 16:19 | Cardiology Progress Note ---
Date of Service April 30, 2021 Assessment & Plan (1) Hypertensive urgency: (2) Pleural effusion on left: (3) COPD (chronic obstructive pulmonary disease): (4) Severe protein-calorie malnutrition: (5) Noncompliance with medication regimen: (6) Subclavian arterial stenosis: (7) Nephrotic syndrome: (8) Chronic anticoagulation: (9) Mitral regurgitation: (10) Mild aortic stenosis: (11) Mild mitral stenosis: (12) DM type 2 (diabetes mellitus, type 2): (13) LBBB (left bundle branch block): Plan: It appears that the patient was once again suffering from hypertensive urgency resulting in chest discomfort which is similar to her previous admission in August of this year. Appreciate input from our nephrology colleagues BP now very well controlled Okay to DC telemetry or out of hospital from cardiac standpoint Given current clinical decline would recommend discussion with her daughter on hospice care which she was previously on. Admission and Anticipated Discharge Date Admission Date: April 27, 2021 Subjective Patient seen and examined, chart reviewed. Remains confused but no complaints other than transient pleuritic chest pain this a.m. Review of Systems Review of Systems: All systems reviewed & are unremarkable except as noted in HPI & below Physical Exam Physical Exam: General: Confused, minimally responsive to verbal stimuli HEENT: Normocephalic, atraumatic. Pupils equal, round and reactive to light and accommodation. Extraocular muscles are intact. Anicteric sclera. Moist mucous membranes. Neck: No JVD. No bruit. Cardiovascular: Regular. Positive S-4. Normal S-1 and S-2. No S-3. 3/6 holosystolic ejection murmur, left sternal border, mid-clavicular line with radiation to the axilla. No rubs. Pulmonary: Coarse breath sounds diffusely with poor air movement in the bilateral bases and scant crackles Abdomen: Bowel sounds x 4, soft. No rebound, guarding or tenderness. No organomegaly. Extremities: No clubbing, cyanosis or edema. +2 pedal pulses bilaterally. Skin: Warm and dry. Results & Data ([facility]) Vital Signs (Past 12 Hours) Vital Signs Temp Pulse Resp BP Pulse Ox 04/30/21 16:04 36.4 C L 65 18 98/55 L 96 04/30/21 14:21 130/44 L 04/30/21 11:44 107/52 L 04/30/21 11:12 36.6 C 59 L 18 95/37 L 96 04/30/21 07:52 37.1 C 68 18 129/54 L 93 04/30/21 04:19 36.6 C 67 18 123/45 L 95
[2021-04-30] MEDS: QUEtiapine FUMARATE 25 MG TABLET PO SCH ×2 (18:06→18:25)
--- NOTE | 2021-04-30 20:08 | Hospitalist Progress Note ---
Date of Service April 30, 2021 Assessment & Plan (1) Acute respiratory failure with hypoxia: Plan: Patient is a 89 yr female who presented with shortness of breath and left-sided chest pain Hypoxia resolved Currently on room air (2) Pleural effusion: Plan: B/L Pleural effusion Acute on chronic diastolic CHF --ECHO: Severe concentric LVH, EF 45 to 50%, grade 1 diastolic dysfunction, mild aortic stenosis with moderate aortic regurgitation, mild mitral stenosis, moderate mitral regurgitation, moderate left atrial enlargement, moderate left pleural effusion significant pulmonary hypertension --IV lasix transitioned to PO lasix No indication of thoracentesis as per the pulmonary Appreciate Cardiology/Nephrology Input Patient previously on hospice--- currently off hospice as per family Discussed with patient's daughter at bedside about hospice but currently patient's daughter not interested. (3) Hypertensive urgency: Plan: Chest pain likely secondary uncontrolled HTN On amlodipine, hydralazine, carvedilol, clonidine Also on Lasix, spironolactone, isosorbide Spironolactone dose increased to 50 mg daily Appreciate cardiology, nephrology input Hold Lisinopril due to AMARIS BP better today 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 Monitor renal function (4) Left-sided chest pain: Plan: No evidence of ACS (5) CHF due to valvular disease: Plan: Management as above (6) DM type 2 (diabetes mellitus, type 2): Plan: SSI HbA1C: 6.9 No tight glycemic control needed given advanced age (7) Chronic anticoagulation: Plan: H/O Pulmonary embolism, 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 (8) COPD (chronic obstructive pulmonary disease): Plan: Continue current medications DVT Px: On Eliquis CODE STATUS DNR/DNI Disposition PT/OT prior to discharge Admission and Anticipated Discharge Date Admission Date: April 27, 2021 Subjective Patient is seen and examined at bedside States feeling well this morning Discussed with patient's family at bedside Renal function worsened today Patient denies any headache, change in vision, chest pain Offers no other complaints Review of Systems Review of Systems: All systems reviewed & are unremarkable except as noted in Subjective Physical Exam Physical Exam: Physical Exam: Vitals signs as noted above General Appearance:Moderately built and nourished, Elderly, chronic ill appearing Head: normocephalic, Atraumatic Eyes: normal inspection, EOMI Neck: supple, Trachea midline Respiratory/Chest: Decreased breath sounds, minimal basal crackles Cardiovascular: S1, S2, + murmur Abdomen/GI:Soft, Non tender, Bowel sounds present Extremities/Musculoskeletal:normal inspection, Trace edema Neurologic/Psych:AAOX3, grossly no focal neurological deficits Skin: normal color, warm Results & Data Results & Data ([facility]) Vital Signs (Past 12 Hours) Vital Signs Temp Pulse Pulse Resp BP Pulse Ox 04/30/21 19:32 36.5 C 83 20 111/54 L 95 04/30/21 16:48 61 04/30/21 16:04 36.4 C L 65 18 98/55 L 96 04/30/21 14:21 130/44 L 04/30/21 11:44 107/52 L 04/30/21 11:12 36.6 C 59 L 18 95/37 L 96 Laboratory Results Short CBC 04/30/21 Range/Units 07:08 WBC 7.86 (4.8-10.8) K/uL Hgb 9.2 L (12.0-16.0) g/dL Hct 30.4 L (37-47) % Plt Count 343 (130-400) K/uL BMP 04/30/21 07:08 Sodium 134 L Potassium 4.0 D Chloride 105 Carbon Dioxide 22 BUN 31 H Creatinine 2.60 H D Glucose 104 H Calcium 8.8
[2021-04-30] MEDS: MELATONIN 3 MG TAB PO SCH (21:21)
[2021-04-30] MEDS: amLODIPine BESYLATE 5 MG TAB PO SCH (21:28)
[2021-05-01] MEDS: LORazepam 0.5 MG TAB PO PRN (03:28)
[2021-05-01] MEDS: hydrOXYzine HCl 10 MG TAB PO PRN (03:28)
[2021-05-01] MEDS: POTASSIUM CHLORIDE CRTAB 20 MEQ TABCR PO SCH ×3 (08:06→20:10)
[2021-05-01] MEDS: carvediloL 12.5 MG TAB PO SCH ×2 (08:07→20:12)
[2021-05-01] MEDS: APIXABAN 2.5 MG TAB PO SCH ×2 (08:07→20:12)
[2021-05-01] MEDS: hydrALAZINE TAB 50 MG TAB PO SCH ×4 (08:07→20:10)
[2021-05-01] MEDS: FUROSEMIDE 40 MG TAB PO SCH (08:08)
[2021-05-01] MEDS: ISOSORBIDE DINITRATE 20 MG TAB PO SCH ×3 (08:08→17:13)
[2021-05-01] MEDS: SPIRONOLACTONE 25 MG TAB PO SCH (08:08)
[2021-05-01] MEDS: PANTOprazole 40 MG TAB PO SCH (08:08)
[2021-05-01] MEDS: LORazepam 1 MG TAB PO SCH ×3 (08:14→20:13)
[2021-05-01] MEDS: CHECK CLONIDINE PATCH PLACEMENT SCH ×2 (08:14→14:41)
[2021-05-01] MEDS: DOCUSATE SODIUM/SENNA 50/8.6MG TAB PO SCH ×2 (08:14→20:10)
[2021-05-01 08:52] LABS: BUN Creatinine Ratio 11.1 (10-20); Calcium 8.6 mg/dl (8.5-10.1); Creatinine Clr Calc Pharmacy 7.6 ml/min; Est GFR (African American) 11.4 ml/min; Est GFR (Non-African American) 9.9 ml/min; Magnesium 1.9 mg/dl (1.8-2.4); Potassium 4.4 mmol/L (3.5-5.1)
--- NOTE | 2021-05-01 10:39 | Nephrology Progress Note ---
Date of Service May 01, 2021 Assessment & Plan (1) Hypertension: Plan: 89-year-old female with a longstanding hypertension, which has been difficult to control. She presented to the hospital with hypertensive urgency with chest pain and headache. Nephrology was consulted for blood pressure management. The patient was already on a pretty aggressive regimen, which included amlodipine, hydralazine, carvedilol, clonidine, Lasix, spironolactone, and isosorbide. She also taking lisinopril at home, which was restarted , laisx was inresaed to 40 mg BID an spirolactone increased to 50.Her BP Control improved , however her SCr has now risen to 3+. and she is more alkalotic. Likley secondary to hemodynamically instability as her BP decreased too low and too soon. - Ok to withhold Lisinopril and furosemide. - Recommed renal doppler to rule out ALEXANDER. - at her age and with the duratuin of hypertension , I would be satisfied with 150/90. - Care co - ordinated with Dr Quinones. (2) Acute kidney injury superimposed on chronic kidney disease: Plan: above. Admission and Anticipated Discharge Date Admission Date: April 27, 2021 Subjective Comfortable, no more c/o chest pain, headache. Passing urine. Offers no other complaints Review of Systems Review of Systems: All systems reviewed & are unremarkable except as noted in HPI & below Physical Exam Physical Exam: GENERAL: Elderly white female who predominantly speaks Colombian. VITAL SIGNS: Blood pressure is 111/54, pulse rate 65, oxygen saturation 95% on room air. HEENT: Mucous membrane is moist. NECK: Supple. No jugular venous distention. CHEST: Bilateral decreased breath sound, but she barely took any inspiratory effort, so a poor quality exam. CARDIOVASCULAR: S1 and S2, regular. Systolic murmur heard. ABDOMEN: Soft, nontender. EXTREMITIES: Show no edema Results & Data ([facility]) Laboratory Results 04/30/21 07:08 05/01/21 07:52 (1) Hypertension Hypertension type: primary hypertension Qualified Code(s): I10 - Essential (primary) hypertension
--- NOTE | 2021-05-01 13:55 | Cardiology Progress Note ---
Date of Service May 01, 2021 Assessment & Plan (1) Hypertensive urgency: (2) Pleural effusion on left: (3) COPD (chronic obstructive pulmonary disease): (4) Severe protein-calorie malnutrition: (5) Noncompliance with medication regimen: (6) Subclavian arterial stenosis: (7) Nephrotic syndrome: (8) Chronic anticoagulation: (9) Mitral regurgitation: (10) Mild aortic stenosis: (11) Mild mitral stenosis: (12) DM type 2 (diabetes mellitus, type 2): (13) LBBB (left bundle branch block): Plan: It appears that the patient was once again suffering from hypertensive urgency resulting in chest discomfort which is similar to her previous admission in August of this year. Appreciate input from our nephrology colleagues BP now very well controlled Okay to DC telemetry or out of hospital from cardiac standpoint The primary team has discussed hospice with her daughter but she declines, however, I still believe this will be the most prudent course of action. We will sign off, please call with questions or concerns Admission and Anticipated Discharge Date Admission Date: April 27, 2021 Subjective Patient seen and examined, chart reviewed. States that she is feeling better today. More lucid today. Denies any complaints. Review of Systems Review of Systems: All systems reviewed & are unremarkable except as noted in HPI & below Physical Exam Physical Exam: General: Confused, minimally responsive to verbal stimuli HEENT: Normocephalic, atraumatic. Pupils equal, round and reactive to light and accommodation. Extraocular muscles are intact. Anicteric sclera. Moist mucous membranes. Neck: No JVD. No bruit. Cardiovascular: Regular. Positive S-4. Normal S-1 and S-2. No S-3. 3/6 holosystolic ejection murmur, left sternal border, mid-clavicular line with radiation to the axilla. No rubs. Pulmonary: Coarse breath sounds diffusely with poor air movement in the bilateral bases and scant crackles Abdomen: Bowel sounds x 4, soft. No rebound, guarding or tenderness. No organomegaly. Extremities: No clubbing, cyanosis or edema. +2 pedal pulses bilaterally. Skin: Warm and dry. Results & Data ([facility]) Vital Signs (Past 12 Hours) Vital Signs Pulse 05/01/21 08:00 62
[2021-05-01] MEDS: QUEtiapine FUMARATE 25 MG TABLET PO SCH (17:13)
--- NOTE | 2021-05-01 18:38 | Hospitalist Progress Note ---
Date of Service May 01, 2021 Assessment & Plan (1) Acute respiratory failure with hypoxia: Plan: Patient is a 89 yr female who presented with shortness of breath and left-sided chest pain Hypoxia resolved Currently on room air (2) Pleural effusion: Plan: B/L Pleural effusion Acute on chronic diastolic CHF --ECHO: Severe concentric LVH, EF 45 to 50%, grade 1 diastolic dysfunction, mild aortic stenosis with moderate aortic regurgitation, mild mitral stenosis, moderate mitral regurgitation, moderate left atrial enlargement, moderate left pleural effusion significant pulmonary hypertension --IV lasix transitioned to PO lasix No indication of thoracentesis as per the pulmonary Appreciate Cardiology/Nephrology Input Patient previously on hospice--- currently off hospice as per family Discussed with patient's daughter at bedside about hospice but currently patient's daughter not interested. (3) Hypertensive urgency: Plan: Chest pain likely secondary uncontrolled HTN On amlodipine, hydralazine, carvedilol, clonidine Also on Isosorbide Could not get renal doppler in the past to R/O renal artery stenosis as she was unable to hold breath Lasix, spironolactone, Lisinopril on hold due to worsening renal function Appreciate cardiology, nephrology input Target BP 150/90 given advanced age 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 Monitor renal function Cr:3.82 today Lisinopril, diuretics held Monitor renal function Avoid nephrotoxic agents as able (4) Left-sided chest pain: Plan: No evidence of ACS (5) CHF due to valvular disease: Plan: Management as above (6) DM type 2 (diabetes mellitus, type 2): Plan: SSI HbA1C: 6.9 No tight glycemic control needed given advanced age (7) Chronic anticoagulation: Plan: H/O Pulmonary embolism, 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 (8) COPD (chronic obstructive pulmonary disease): Plan: Continue current medications DVT Px: On Eliquis CODE STATUS DNR/DNI Disposition PT/OT prior to discharge Admission and Anticipated Discharge Date Admission Date: April 27, 2021 Subjective Patient is seen and examined at bedside No new complaints today Discussed with patient's daughter over the phone Renal function worsening Blood pressure is well controlled Also discussed with nephrology today Denies any chest pain, shortness of breath, dizziness Review of Systems Review of Systems: All systems reviewed & are unremarkable except as noted in Subjective Physical Exam Physical Exam: Physical Exam: Vitals signs as noted above General Appearance:Moderately built and nourished, Elderly, chronic ill appearing Head: normocephalic, Atraumatic Eyes: normal inspection, EOMI Neck: supple, Trachea midline Respiratory/Chest: Decreased breath sounds, minimal basal crackles Cardiovascular: S1, S2, + murmur Abdomen/GI:Soft, Non tender, Bowel sounds present Extremities/Musculoskeletal:normal inspection, Trace edema Neurologic/Psych:AAOX3, grossly no focal neurological deficits Skin: normal color, warm Results & Data Results & Data ([facility]) Vital Signs (Past 12 Hours) Vital Signs Temp Pulse Pulse Resp BP Pulse Ox 05/01/21 14:42 36.9 C 64 16 108/60 96 05/01/21 08:03 36.6 C 65 16 127/60 96 05/01/21 08:00 62 Laboratory Results [facility] 05/01/21 07:52 Sodium 137 Potassium 4.4 Chloride 106 Carbon Dioxide 22 BUN 42 H Creatinine 3.82 H D Glucose 105 H Calcium 8.6
[2021-05-01] MEDS: MELATONIN 3 MG TAB PO SCH (20:10)
[2021-05-01] MEDS: amLODIPine BESYLATE 5 MG TAB PO SCH (20:13)
[2021-05-01] MEDS ORDERED: traMADol HCL 50 MG TABLET PO STA (22:13)
[2021-05-01 22:57] LABS: Partial Thromboplastin Ratio 1.1; Partial Thromboplastin Time 29.1 Seconds (21.0-31.0)
[2021-05-02] MEDS: CHECK CLONIDINE PATCH PLACEMENT SCH ×3 (01:01→15:21)
[2021-05-02] MEDS: hydrOXYzine HCl 10 MG TAB PO PRN ×3 (03:43→19:08)
[2021-05-02] MEDS: ISOSORBIDE DINITRATE 20 MG TAB PO SCH ×3 (06:54→17:45)
[2021-05-02 07:41] LABS: Hematocrit (blood only) 28.4 % (37-47); Hemoglobin 8.8 g/dL (12.0-16.0); Mean Corpuscular Hemoglobin 20.4 pg (25-34); Mean Corpuscular Volume 65.7 fL (80-100); Mean Platelet Volume 8.2 fL (7.4-10.4); Platelet Count 328 K/uL (130-400); RDW Coefficient of Variation 21.2 % (11.5-14.5); RDW Standard Deviation 51.2 fL (36.4-46.3); Red Blood Count 4.32 M/uL (4.2-5.4); White Blood Count 8.72 K/uL (4.8-10.8)
[2021-05-02] MEDS: ACETAMINOPHEN 325 MG TAB PO PRN ×2 (07:50→19:56)
[2021-05-02] MEDS: DOCUSATE SODIUM/SENNA 50/8.6MG TAB PO SCH ×2 (07:56→19:56)
[2021-05-02] MEDS: hydrALAZINE TAB 50 MG TAB PO SCH ×3 (07:57→19:57)
[2021-05-02] MEDS: POTASSIUM CHLORIDE CRTAB 20 MEQ TABCR PO SCH (07:58)
[2021-05-02] MEDS: APIXABAN 2.5 MG TAB PO SCH ×2 (07:58→19:37)
[2021-05-02] MEDS: PANTOprazole 40 MG TAB PO SCH (07:59)
[2021-05-02] MEDS: carvediloL 12.5 MG TAB PO SCH (08:03)
[2021-05-02 08:50] LABS: BUN Creatinine Ratio 13.8 (10-20); Calcium 8.2 mg/dl (8.5-10.1); Creatinine Clr Calc Pharmacy 7.7 ml/min; Est GFR (African American) 11.7 ml/min; Est GFR (Non-African American) 10.1 ml/min; Potassium 4.6 mmol/L (3.5-5.1)
[2021-05-02] MEDS: LORazepam 1 MG TAB PO SCH ×3 (09:46→19:57)
[2021-05-02] MEDS: QUEtiapine FUMARATE 25 MG TABLET PO SCH (17:44)
--- NOTE | 2021-05-02 18:24 | Hospitalist Progress Note ---
Date of Service May 02, 2021 Assessment & Plan (1) Acute respiratory failure with hypoxia: Plan: Patient is a 89 yr female who presented with shortness of breath and left-sided chest pain Hypoxia resolved Currently on room air (2) Pleural effusion: Plan: B/L Pleural effusion Acute on chronic diastolic CHF --ECHO: Severe concentric LVH, EF 45 to 50%, grade 1 diastolic dysfunction, mild aortic stenosis with moderate aortic regurgitation, mild mitral stenosis, moderate mitral regurgitation, moderate left atrial enlargement, moderate left pleural effusion significant pulmonary hypertension --IV lasix transitioned to PO lasix No indication of thoracentesis as per the pulmonary Appreciate Cardiology/Nephrology Input Patient previously on hospice--- currently off hospice as per family Discussed with patient's daughter at bedside about hospice but currently patient's daughter not interested. Currently diuretics held secondary to AMARIS Plan to resume diuretics as able (3) Hypertensive urgency: Plan: Chest pain likely secondary uncontrolled HTN On amlodipine, hydralazine, carvedilol Also on Isosorbide Could not get renal doppler in the past to R/O renal artery stenosis as she was unable to hold breath Lasix, spironolactone, Lisinopril on hold due to worsening renal function Appreciate cardiology, nephrology input Target BP 150/90 given advanced age We will discontinue clonidine patch as BP low today We will decrease carvedilol back to home dose of 6.25 mg twice daily 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 Monitor renal function Cr:3.82>3.76 Lisinopril, diuretics held Monitor renal function Avoid nephrotoxic agents as able (4) Left-sided chest pain: Plan: No evidence of ACS (5) CHF due to valvular disease: Plan: Management as above (6) DM type 2 (diabetes mellitus, type 2): Plan: SSI HbA1C: 6.9 No tight glycemic control needed given advanced age (7) Chronic anticoagulation: Plan: H/O Pulmonary embolism, 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 (8) COPD (chronic obstructive pulmonary disease): Plan: Continue current medications DVT Px: On Eliquis CODE STATUS DNR/DNI Disposition PT/OT prior to discharge Admission and Anticipated Discharge Date Admission Date: April 27, 2021 Subjective Patient is seen and examined at bedside Patient having her lunch during my encounter Renal function stable from yesterday Review of Systems Review of Systems: All systems reviewed & are unremarkable except as noted in Subjective Physical Exam Physical Exam: Physical Exam: Vitals signs as noted above General Appearance:Moderately built and nourished, Elderly, chronic ill appearing Head: normocephalic, Atraumatic Eyes: normal inspection, EOMI Neck: supple, Trachea midline Respiratory/Chest: Decreased breath sounds, minimal basal crackles Cardiovascular: S1, S2, + murmur Abdomen/GI:Soft, Non tender, Bowel sounds present Extremities/Musculoskeletal:normal inspection, Trace edema Neurologic/Psych:AAOX3, grossly no focal neurological deficits Skin: normal color, warm Results & Data Results & Data ([facility]) Vital Signs (Past 12 Hours) Vital Signs Temp Pulse Pulse Resp BP BP Pulse Ox 05/02/21 17:47 108/51 L 05/02/21 14:19 61 05/02/21 13:00 39.8 C H 57 L 20 110/44 L 97 05/02/21 11:00 36.8 C 59 L 20 109/68 92 05/02/21 08:00 60 05/02/21 07:00 57 L 05/02/21 06:51 36.7 C 61 20 142/52 H 94 Laboratory Results Short CBC 05/02/21 Range/Units 07:14 WBC 8.72 (4.8-10.8) K/uL Hgb 8.8 L (12.0-16.0) g/dL Hct 28.4 L (37-47) % Plt Count 328 (130-400) K/uL BMP 05/02/21 07:14 Sodium 136 Potassium 4.6 Chloride 108 H Carbon Dioxide 21 BUN 52 H Creatinine 3.76 H Glucose 104 H Calcium 8.2 L Cardiac Enzymes 05/01/21 Range/Units 22:38 Troponin I 0.015 (0-0.045) ng/ml
[2021-05-02] MEDS: amLODIPine BESYLATE 5 MG TAB PO SCH (19:38)
[2021-05-02] MEDS: MELATONIN 3 MG TAB PO SCH (19:56)
[2021-05-02] MEDS: carvediloL 6.25 MG TAB PO SCH (19:57)
--- NOTE | 2021-05-02 21:03 | Electrocardiogram Report ---
Test Reason : Blood Pressure : / mmHG Vent. Rate : 065 BPM Atrial Rate : 065 BPM P-R Int : 156 ms QRS Dur : 158 ms QT Int : 492 ms P-R-T Axes : 051 -31 132 degrees QTc Int : 511 ms Normal sinus rhythm Left axis deviation Left bundle branch block Abnormal ECG When compared with ECG of 29-APR-2021 10:25, No significant change Confirmed by German Urena [id number]) on 05/02/2021 9:02:37 PM Referred By: REFERRED SELF Confirmed By:German Urena
[2021-05-03] MEDS: ACETAMINOPHEN 325 MG TAB PO PRN ×2 (06:05→14:03)
[2021-05-03] MEDS: LORazepam 0.5 MG TAB PO PRN (06:06)
[2021-05-03] MEDS: ISOSORBIDE DINITRATE 20 MG TAB PO SCH ×2 (06:06→14:02)
[2021-05-03] MEDS: DOCUSATE SODIUM/SENNA 50/8.6MG TAB PO SCH (09:00)
[2021-05-03] MEDS: hydrALAZINE TAB 50 MG TAB PO SCH ×2 (09:00→14:02)
[2021-05-03] MEDS: PANTOprazole 40 MG TAB PO SCH (09:00)
[2021-05-03] MEDS: LORazepam 1 MG TAB PO SCH ×2 (09:00→14:04)
[2021-05-03] MEDS: APIXABAN 2.5 MG TAB PO SCH (09:01)
[2021-05-03] MEDS: carvediloL 6.25 MG TAB PO SCH (09:05)
[2021-05-03 10:22] LABS: BUN Creatinine Ratio 16.4 (10-20); Calcium 8.3 mg/dl (8.5-10.1); Creatinine Clr Calc Pharmacy 8.6 ml/min; Est GFR (African American) 13.6 ml/min; Est GFR (Non-African American) 11.7 ml/min; Potassium 4.6 mmol/L (3.5-5.1)
--- NOTE | 2021-05-03 11:41 | Nephrology Progress Note ---
Date of Service May 03, 2021 Assessment & Plan (1) Hypertension: Plan: 89-year-old female with a longstanding hypertension, which has been difficult to control. She presented to the hospital with hypertensive urgency with chest pain and headache. Nephrology was consulted for blood pressure management. The patient was already on a pretty aggressive regimen, which included amlodipine, hydralazine, carvedilol, clonidine, Lasix, spironolactone, and isosorbide. She also taking lisinopril at home, which was restarted , laisx was inresaed to 40 mg BID an spirolactone increased to 50.Her BP Control improved , however her SCr doris to 3+. and she became more alkalotic. Likley secondary to hemodynamically instability as her BP decreased too low and too soon. -Renal functions have improved after withholding Lisinopril and furosemide. - at her age and with the duration of hypertension , I would be satisfied with 150/90. -Continue to hold Lasix and lisinopril until her renal functions reaches her baseline, diuretic could then be started at home dose(40 daily) and assess response (2) Acute kidney injury superimposed on chronic kidney disease: Plan: As above. Admission and Anticipated Discharge Date Admission Date: April 27, 2021 Subjective Patient is seen and examined, Comfortable Review of Systems Review of Systems: All systems reviewed & are unremarkable except as noted in Subjective Physical Exam Physical Exam: GENERAL: Elderly white female who predominantly speaks Lithuanian. VITAL SIGNS: Blood pressure is 106/63, pulse rate 63, oxygen saturation 97% on room air. HEENT: Mucous membrane is moist. NECK: Supple. No jugular venous distention. CHEST: Bilateral decreased breath sound, but she barely took any inspiratory effort, so a poor quality exam. CARDIOVASCULAR: S1 and S2, regular. Systolic murmur heard. ABDOMEN: Soft, nontender. EXTREMITIES: Show no edema Results & Data ([facility]) Vital Signs (Past 12 Hours) Vital Signs Temp Pulse Resp BP BP Pulse Ox 05/03/21 10:54 36.9 C 63 18 106/63 97 05/03/21 08:59 60 104/34 L 05/03/21 07:34 36.4 C L 57 L 17 87/40 L 97 05/03/21 04:00 36.7 C 62 172/55 H 94 Laboratory Results 05/02/21 07:14 05/03/21 09:42 (1) Hypertension Hypertension type: primary hypertension Qualified Code(s): I10 - Essential (primary) hypertension
[2021-05-03] MEDS: QUEtiapine FUMARATE 25 MG TABLET PO PRN (14:04)
--- NOTE | 2021-05-03 14:14 | Hospitalist Progress Note ---
Date of Service May 03, 2021 Assessment & Plan (1) Acute respiratory failure with hypoxia: Plan: Patient is a 89 yr female who presented with shortness of breath and left-sided chest pain Hypoxia resolved Currently on room air (2) Pleural effusion: Plan: B/L Pleural effusion Acute on chronic diastolic CHF --ECHO: Severe concentric LVH, EF 45 to 50%, grade 1 diastolic dysfunction, mild aortic stenosis with moderate aortic regurgitation, mild mitral stenosis, moderate mitral regurgitation, moderate left atrial enlargement, moderate left pleural effusion significant pulmonary hypertension --IV lasix transitioned to PO lasix No indication of thoracentesis as per the pulmonary Appreciate Cardiology/Nephrology Input Patient previously on hospice--- currently off hospice as per family Discussed with patient's daughter at bedside about hospice but currently patient's daughter not interested. Plan to resume lasix 40mg daily as recommended by Nephrology Plan to discontinue spironolactone as per Nephrology (3) Hypertensive urgency: Plan: Chest pain likely secondary uncontrolled HTN Was on amlodipine, hydralazine, carvedilol Also on Isosorbide Could not get renal doppler in the past to R/O renal artery stenosis as she was unable to hold breath Lasix, spironolactone, Lisinopril on hold due to worsening renal function Appreciate cardiology, nephrology input Target BP 150/90 given advanced age clonidine patch discontinued We will decrease carvedilol back to home dose of 6.25 mg twice daily Hydralazine will be discontinued for now given BP SBP in 100s Decrease amlodipine to 2.5 mg daily Needs close follow up with PCP/Nephrology for further adjustment of medications 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 Monitor renal function Cr:3.82>3.76>3.32 Lisinopril, diuretics held Monitor renal function Avoid nephrotoxic agents as able Needs follow up with Nephrology upon discharge with Blood work (4) Left-sided chest pain: Plan: No evidence of ACS (5) CHF due to valvular disease: Plan: Management as above (6) DM type 2 (diabetes mellitus, type 2): Plan: SSI HbA1C: 6.9 No tight glycemic control needed given advanced age (7) Chronic anticoagulation: Plan: H/O Pulmonary embolism, 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 Admission and Anticipated Discharge Date Admission Date: April 27, 2021 Subjective Patient is seen and examined at bedside Patient wants to be discharged home Discussed with Nephrology and Patient's daughter Patient reports generalized pain which is chronic No new complaints Creatinine levels slowly improving Review of Systems Review of Systems: All systems reviewed & are unremarkable except as noted in Subjective Physical Exam Physical Exam: Physical Exam: Vitals signs as noted above General Appearance:Moderately built and nourished, Elderly, chronic ill appearing Head: normocephalic, Atraumatic Eyes: normal inspection, EOMI Neck: supple, Trachea midline Respiratory/Chest: Decreased breath sounds, CTA Cardiovascular: S1, S2, + murmur Abdomen/GI:Soft, Non tender, Bowel sounds present Extremities/Musculoskeletal:normal inspection, Trace edema Neurologic/Psych:AAOX3, grossly no focal neurological deficits Skin: normal color, warm Results & Data Results & Data ([facility]) Vital Signs (Past 12 Hours) Vital Signs Temp Pulse Resp BP BP Pulse Ox 05/03/21 10:54 36.9 C 63 18 106/63 97 05/03/21 08:59 60 104/34 L 05/03/21 07:34 36.4 C L 57 L 17 87/40 L 97 05/03/21 04:00 36.7 C 62 172/55 H 94 Laboratory Results [facility] 05/03/21 09:42 Sodium 136 Potassium 4.6 Chloride 109 H Carbon Dioxide 20 L BUN 55 H Creatinine 3.32 H D Glucose 160 H Calcium 8.3 L
--- NOTE | 2021-05-03 14:37 | Discharge Summary ---
Date of Service May 03, 2021 Admission HPI Per Admitting Provider CHIEF COMPLAINT: Headache and chest pain. HISTORY OF PRESENT ILLNESS: This is an 89-year-old female with past medical history significant for COPD, heart failure due to valvular disease, hypertension, GERD, female stress incontinence, history of pulmonary embolism, persistent insomnia, presents with headache and chest pain. After pain medication in the ER, the pain has resolved. Chest x-ray is showing possible left pleural effusion. Blood pressures were running high, so we were called for admission. Currently, resting comfortably, hemodynamically stable. Daughter in the room helping with H and P. The patient is alert and oriented to name and place. Currently, denies any headache, denies any chest pain, no shortness of breath, no cough, no fevers, no nausea, no abdominal pain. Normal bowel and bladder movements. Ambulates okay at home. Lives with her daughter. Admission Exam Per Admitting Provider PHYSICAL EXAMINATION: GENERAL: The patient is old and frail, not in acute distress. VITAL SIGNS: Temperature 36.9, pulse 65, blood pressure 170/59, oxygen 91% on 2 liters, after pain medication, it was 77% on room air. HEENT: Pupils equal, round and reactive to light. Oral mucosa moist. NECK: No JVD, no neck masses. CARDIOVASCULAR: S1 and S2 heard. Regular rate and rhythm. No murmur, no gallop. RESPIRATORY SYSTEM: Normal AP diameter. No accessory muscle use. No wheezing, no crackles. ABDOMEN: Soft, bowel sounds present, nontender, no distention. CENTRAL NERVOUS SYSTEM: Cranial nerves II through XII are grossly intact, nonfocal. EXTREMITIES: Lower extremity pedal edema present, no erythema seen. Principal Diagnosis Acute respiratory failure with hypoxia Bilateral pleural effusion Hypertensive urgency Acute kidney injury Acute on chronic diastolic CHF Discharge Data Allergies Allergy/AdvReac Type Severity Reaction Status Date / Time Penicillins Allergy Intermediate Rash Verified 04/26/21 00:52 Quinolones Allergy Intermediate Rash Verified 04/26/21 00:52 aspirin AdvReac Mild burning in Verified 04/26/21 00:52 stomach Consultations 04/26/21 02:50 ED Decision to Admit Stat 04/26/21 07:07 Consult Pulmonology Routine 04/26/21 08:00 Consult Cardiology Routine 04/29/21 08:40 Consult Nephrology Routine Ordered Studies 04/26/21 00:29 CT abd pelvis wo con Urgent 04/26/21 03:52 CT chest diagnostic wo con Urgent Hospital Course (1) Acute respiratory failure with hypoxia: Patient is a 89 yr female who presented with shortness of breath and left- sided chest pain Hypoxia resolved Currently on room air (2) Pleural effusion: B/L Pleural effusion Acute on chronic diastolic CHF --ECHO: Severe concentric LVH, EF 45 to 50%, grade 1 diastolic dysfunction, mild aortic stenosis with moderate aortic regurgitation, mild mitral stenosis, moderate mitral regurgitation, moderate left atrial enlargement, moderate left pleural effusion significant pulmonary hypertension --IV lasix transitioned to PO lasix No indication of thoracentesis as per the pulmonary Appreciate Cardiology/Nephrology Input Patient previously on hospice--- currently off hospice as per family Discussed with patient's daughter at bedside about hospice but currently patient's daughter not interested. Plan to resume lasix 40mg daily as recommended by Nephrology Plan to discontinue spironolactone as per Nephrology (3) Hypertensive urgency: Chest pain likely secondary uncontrolled HTN Was on amlodipine, hydralazine, carvedilol Also on Isosorbide Could not get renal doppler in the past to R/O renal artery stenosis as she was unable to hold breath Lasix, spironolactone, Lisinopril on hold due to worsening renal function Appreciate cardiology, nephrology input Target BP 150/90 given advanced age clonidine patch discontinued We will decrease carvedilol back to home dose of 6.25 mg twice daily Hydralazine will be discontinued for now given BP SBP in 100s Decrease amlodipine to 2.5 mg daily Needs close follow up with PCP/Nephrology for further adjustment of medications 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 Monitor renal function Cr:3.82>3.76>3.32 Lisinopril, diuretics held Monitor renal function Avoid nephrotoxic agents as able Needs follow up with Nephrology upon discharge with Blood work (4) Left-sided chest pain: No evidence of ACS (5) CHF due to valvular disease: Management as above (6) DM type 2 (diabetes mellitus, type 2): SSI HbA1C: 6.9 No tight glycemic control needed given advanced age (7) Chronic anticoagulation: H/O Pulmonary embolism, 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 Total Time Total Time Spent Total Time Spent (In Minutes): 50 minutes Discharge Plan Discharge Items Patient Disposition: Home - Home Health Services Reason For Visit: ABDOMINAL/CHEST PAIN Discharge Diagnosis: Acute respiratory failure with hypoxia Bilateral pleural effusion Hypertensive urgency Acute kidney injury Acute on chronic diastolic CHF Activity: Per Instructions section Exercise/Sports: Wait until after follow-up appointment Non-emergency contact: Primary Care Provider, Logistics Vice President and Forestry Technical Officer Call non-emergency contact if: you have any medication questions, your symptoms worsen, your pain is concerning for you and you have a fever Follow-up/Referrals: Dakota Meléndez MD [Primary Care Provider] - Diet: Carb Consistent or DM2 and Heart Healthy Addtl Attending Provider Instructions: Follow-up with your primary care physician in 1 week as advised Follow-up with your hand surgeon /Benjamin in 1 week Follow-up with your lumber estimator in 4 weeks Get Blood Test(basic metabolic panel) in 1 week and follow-up with your physician. --- Discuss with your physician for further adjustment of her blood pressure medications as needed. Monitor your blood pressure closely as advised. --- Discussed with your primary care physician for further possibility of transition to hospice as recommended by your lumber estimator. --Start taking lasix 40mg daily from 05/05/20. Seek immediate medical attention if your symptoms reoccur or worsen Please take all medications as instructed on discharge list below. Please call if you have any questions or problems. You can reach a [facility] hospitalist on duty at [facility] 24 hours a day by calling [phone] Call your Primary Care doctor if any of the following symptoms or problems start or get worse: * Shortness of breath or difficulty breathing * Wake up at night short of breath * Chest pain * Cough * Swelling of your hands, feet, or legs * More fatigued or tired with your normal activity * Palpitations - sudden fast heart beats WEIGHT * Weigh yourself every morning after using the bathroom. * Use the same scale. * Wear the same amount of clothing. * Write your weight down on a chart. * Call your Primary Care doctor if you gain more than 2-3 pounds in 1-2 days. MEDICATIONS * Use this discharge instruction sheet for medication instructions. * Take your medications at the time your doctor ordered. * Do not skip a dose of your medicines. * If you miss a dose of medicine, take it as soon as possible, but DO NOT DOUBLE A DOSE. * Read your medicine information when you get home. * Know all of the side effects of your medicine. If in doubt, ask your pharmacist * Call your Primary Care doctor's office if you have any side effects. * Be sure all of your doctors know what medicine and herbs you take (including cold, flu, and herbal medicine). Take the following with you to your follow-up doctor appointments: * Weight Chart * Medication List * List of questions Do not drink excessive alcohol, beer or wine. Pending Studies at Discharge: No Stand-Alone Forms: My [facility] [employer], Smoking Cessation Medications and DC Order Prescriptions: New amlodipine [Norvasc] 5 mg Tablet 5 mg PO HS Qty: 30 RF: 0 furosemide [Lasix] 40 mg tablet 40 mg PO DAILY Qty: 30 RF: 0 Continued sennosides-docusate sodium [Senna with Docusate Sodium] 8.6-50 mg Tablet See Rx Instructions .ROUTE .COMPLEX RF: 0 isosorbide dinitrate 10 mg Tablet 20 mg PO TID 30 Days Qty: 180 RF: 0 carvedilol [Coreg] 6.25 mg tablet 6.25 mg PO BID RF: 0 melatonin 3 mg Tablet 3 mg PO HS RF: 0 quetiapine [Seroquel] 25 mg tablet 25 mg PO QPM RF: 0 quetiapine 25 mg tablet 12.5 mg PO DAILY PRN (Reason: Agitation) RF: 0 hydromorphone [Dilaudid] 2 mg tablet 1 mg PO Q2H PRN (Reason: pain/sob) RF: 0 lorazepam 1 mg tablet 0.5 mg PO Q4 PRN (Reason: anxiety/restlessness/insomnia) RF: 0 lorazepam 1 mg tablet 1 mg PO TID RF: 0 hyoscyamine sulfate 0.125 mg tablet 0.125 mg sublingual Q4 PRN (Reason: terminal secretions) RF: 0 simethicone 125 mg tablet,chewable 125 mg PO QID PRN (Reason: Gas) RF: 0 Refresh Optive 0.5-0.9 % Drops 1 drp OPHTHALMIC (EYE) QID PRN (Reason: Dry Eye(S)) RF: 0 prednisone 10 mg Tablet See Rx Instructions .ROUTE .COMPLEX RF: 0 pantoprazole 40 mg Tablet,Delayed Release (Dr/Ec) 40 mg PO DAILY RF: 0 apixaban 2.5 mg Tablet 2.5 mg PO BID RF: 0 Discontinued amlodipine 10 mg Tablet 10 mg PO HS RF: 0 hydralazine 100 mg tablet 100 mg PO TID Qty: 90 RF: 1 furosemide [Lasix] 20 mg tablet 20 mg PO 3XWK RF: 0 spironolactone [Aldactone] 25 mg tablet 25 mg PO DAILY RF: 0 Discharge Orders: Discharge Order (Routine); Ordered 05/03/21 Ordered By: Tolu Lagunas Admission Data Admit Date/Time: 04/27/21 13:10 Attending Provider: Tolu Lagunas Admit Provider: Rolando Barry Primary Care Provider: Dakota Meléndez Other Providers: Rolando Barry ; Trevor You Muqueet ; Dayami Bee ; [facility]
[2021-05-03] MEDS ORDERED: amLODIPine BESYLATE 5 MG TAB PO SCH (21:00)
--- NOTE | 2021-05-18 09:54 | Coding Query ---
CODING QUERY To promote full compliance with coding requirements relating to patient care, provider participation is requested in all cases of quality compliance manager uncertainty. Please assist us with the question(s) below: Coding Question(s): This patient was in Observation on 04/26/21 and made Inpatient admission on 04/27/21. The 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 Note on 04/26/21 documents, "The patient was seen and examined in emergency room. She was admitted with headache and chest pain likely secondary to hypertensive urgency. Noted to have bilateral pleural effusion with more shortness of breath". Please specify below, in your clinical opinion, the diagnosis most responsible for occasioning the Inpatient admission. ( ) Acute on Chronic Diastolic CHF ( ) Hypertensive Urgency ( x) Both Acute and Chronic CHF and Hypertensive Urgency were equally responsible for the Inpatient admission ( ) Other: Please Specify Physician's Response(s): Thank you Citlalli Jang Principal Diagnosis: "that condition established after study, to be chiefly responsible for occasioning the admission of the patient to the hospital for care." Co-Existing Principal Diagnosis: "when two or more diagnoses equally meet the criteria for principal diagnosis as determined by the circumstances of admission, diagnostic work up, and/or therapy provided, and the Alphabetic Index, Tabular List, or another coding guideline does not provide sequencing direction, any one of the diagnoses may be sequenced first." "When the physician has documented what appears to be a current diagnosis in the body of the record, but has not included the diagnosis in the final diagnostic statement, the physician should be asked whether the diagnosis should be added." (Source Coding [facility] 2 QTR90. p3-4) RALPH
== END 2021-05-03 15:44 | disposition home health service (06) | DRG 291 ==
LOC: EDINP 00:15 → ED 00:15 → EDINP 04-27 03:23 → SUATTDRO 04-27 13:10 → 2N 04-28 20:43

== ENCOUNTER 2021-05-22 13:44 | Inpatient (IN) ==
--- NOTE | 2021-05-22 13:57 | CT Scan Report ---
CT SCAN OF THE BRAIN WITHOUT IV CONTRAST CLINICAL HISTORY: Strokelike symptoms. COMPARISON STUDY: CT of the brain dated 04/05/2021. TECHNIQUE: Unenhanced axial CT scan of the brain is performed from the vertex to the skull base. A do se lowering technique was utilized adhering to the principles of ALARA. The patient was scanned twice due to motion artifact. CT DOSE: 1160.96 mGy.cm FINDINGS: Brain parenchyma: There are age-related involutional changes noting mild to moderate subcortical and periventricular microangiopathic change. There is no hemorrhage, mass effect, or evidence of acute t erritorial ischemia by CT criteria. 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 Duenas-white matter differentiation is preserved. No extra-axial fluid collection is seen. Ventricles, sulci, cisterns: Prominent secondary to involutional change. Intracranial vasculature: There is atherosclerotic calcification of the cavernous carotid and vertebr al arteries. Calvarium: Unremarkable. 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 The paranasal sinuses a re otherwise clear. The mastoid air cells are well pneumatized. Orbits: The bony orbits are grossly intact. There are bilateral ocular lens implants. IMPRESSION: There is no hemorrhage, mass effect, or evidence of acute territorial ischemia by CT angelika cosme. ACT 112: Negative or not required by law. Electronically signed by: Abran Chu M.D. 05/22/2021 1:56 PM
[2021-05-22] MEDS ORDERED: OPTIRAY 320 125ml IV ONE (14:14)
--- NOTE | 2021-05-22 14:21 | CT Scan Report ---
CT angio head w con CLINICAL HISTORY: stroke aler . Confusion difficulty speaking COMPARISON STUDY: CT brain without contrast from 05/22/2021 CT DOSE: TECHNIQUE: CT Angio of the brain was performed.followed by image post processing with coronal, and s agittal MIP reformats. Contrast Volume: Optiray 320, 120 ml FINDINGS: Vascular findings: There is normal enhancement within the internal carotid arteries bilaterally. The re is normal enhancement noted within the anterior, middle and posterior cerebral arteries. Nonvascular findings: There is homogeneous attenuation of the brain parenchyma bilaterally. There is no evidence for an acute infarct or cerebral edema. The ventricles are mildly dilated bilaterally. Th ere is no abnormal enhancement. IMPRESSION: Negative CT angiogram of the brain with contrast. ACT 112: Negative or not required by law. Electronically signed by: Jhonatan Nayak M.D. 05/22/2021 2:19 PM
--- NOTE | 2021-05-22 14:24 | CT Scan Report ---
CT ANGIOGRAM OF THE NECK CLINICAL HISTORY: Strokelike symptoms. COMPARISON STUDY: MR angiogram of the neck dated 09/30/2020. TECHNIQUE: Following the IV administration of 100 of Optiray 320, CT angiogram of the neck was perfor med from the aortic arch to the skull base. Images are reviewed in the axial, sagittal, and coronal p lanes. 3-D MIPS images are created and assessed. IV contrast was administered without complication. A ll measurements were calculated based on NASCET criteria. A dose lowering technique was utilized adh ering to the principles of ALARA. CT DOSE: 413.46 mGy.cm FINDINGS: Thoracic aorta: There is advanced atherosclerotic calcification of the thoracic aorta. Visualized por tions of the thoracic aorta are normal in caliber. The aortic arch demonstrates standard 3-vessel bruce marilee. Right carotid arterial system: The right common carotid artery is widely patent, as is the right inte rnal carotid artery. Noting age-related involutional change there is moderate stenosis at the origin of the right external carotid artery. The external carotid artery is otherwise patent. Calcified plaq ue is noted in the carotid bulb. Left carotid arterial system: The left common carotid artery is widely patent as are the left interna l and external carotid arteries. Calcified plaque is noted in the carotid bulb. Vertebral arteries: The vertebral arteries are widely patent bilaterally and codominant. Subclavian arteries: Widely patent bilaterally. Atherosclerotic plaque and irregularity is noted on t he left. Intracranial vasculature: The visualized intracranial vessels at the skull base are patent. Jugular veins: Widely patent bilaterally. Brain parenchyma: The visualized brain parenchyma the skull base is within normal limits. Lung apices: Intralobular septal thickening is noted throughout the upper lobes. Soft tissues: The visualized pharyngeal soft tissues are normal in appearance noting angiographic pha se technique. The oropharyngeal airway appears widely patent. The thyroid gland is enlarged and heter ogeneous, and contains coarse calcifications. The salivary glands are normal in appearance. No cervic al lymphadenopathy is seen. Skeletal structures: The skeletal structures are osteopenic. The visualized calvarium at the skull ba se appears intact. The imaged cervical spine is maintained noting advanced multilevel spondylosis. No lytic or blastic lesion is seen. IMPRESSION: 1. 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 2. Otherwise unremarkable CT angiogram of the neck. 3. Intralobular septal thickening is noted throughout the upper lobes. This could be seen with acute versus chronic congestive change and clinical correlation will be required. ACT 112: Negative or not required by law. Electronically signed by: Abran Chu M.D. 05/22/2021 2:23 PM
[2021-05-22] MEDS ORDERED: SODIUM CHLORIDE 0.9% 1000ML 1,000 ML IV SCH (14:30)
[2021-05-22 15:04] LABS: Appearance Urine Clear (Clear); Bacteria Urine Automated Negative (Negative); Bilirubin Urine Negative (Negative); Blood Urine Negative (Negative); Color Urine Yellow; Glucose Urine UA Negative (Negative); Ketones Urine Negative (Negative); Leukocyte Esterase Urine Negative (Negative); Nitrite Urine Negative (Negative); Protein Urine 2+ (Negative); RBC Urine Automated 0-4 /hpf (0-4); Specific Gravity Urine 1.014 (1.000-1.030); Urobilinogen Urine Negative (Negative)
[2021-05-22 15:38] LABS: Hematocrit (blood only) 31.8 % (37-47); Hemoglobin 9.8 g/dL (12.0-16.0); Mean Corpuscular Hemoglobin 20.9 pg (25-34); Mean Corpuscular Hgb Conc 30.8 g/dL (32-36); Mean Corpuscular Volume 67.9 fL (80-100); Mean Platelet Volume 8.7 fL (7.4-10.4); Platelet Count 306 K/uL (130-400); RDW Coefficient of Variation 21.8 % (11.5-14.5); RDW Standard Deviation 54.2 fL (36.4-46.3); Red Blood Count 4.68 M/uL (4.2-5.4); White Blood Count 7.43 K/uL (4.8-10.8)
[2021-05-22 15:48] LABS: Partial Thromboplastin Ratio 0.9; Partial Thromboplastin Time 23.9 Seconds (21.0-31.0); Prothrombin Time 10.1 Seconds (9.0-12.0)
--- NOTE | 2021-05-22 16:25 | History & Physical Report ---
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 In ER patient afebrile, hypertensive with BP: 207/72 CT head: There is no hemorrhage, mass effect, or evidence of acute territorial ischemia by CT criteria. CTA Head: Negative CT angiogram of the brain with contrast. CTA Neck: 1. 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 2. Otherwise unremarkable CT angiogram of the neck. 3. Intralobular septal thickening is noted throughout the upper lobes. This could be seen with acute versus chronic congestive change and clinical correlation will be required. DDX: TIA vs stroke -Tele to monitor for arrhythmias -lipids -A1C in 04/2021 was 6.9 -TSH pending -MRI brain -echo -aspiration precautions -PT/OT consult -start statin -continue Eliquis. If stroke seen on MRI consider antiplatelet -allow permissive HTN currently, however anticipate will need to adjust BP meds for improved BP control -neurology consult Chronic diastolic CHF Appears euvolemic -Continue lasix HTN BP may be elevated secondary to acute CVA vs HTN urgency/emergency Prior admission in 04/21-05/23 had HTN urgency with BP med adjustment however BP had improved and Hydralazine dc and Spironolactone was discontinued secondary to AMARIS -Continue amlodipine, carvedilol, lasix, isosorbide -May require further BP med adjustment -Target BP: 150/90 CKD IV Cr: 1.79. Baseline Cr: ~1.8 -Monitor renal functions and avoid nephrotoxic agents when possible DM II A1c: 6.9 in 04/2021 Diet controlled Novolog sliding scale per protocol History PE History splenic infarct Chronic anticoagulation: -Continue Eliquis Dementia -Continue Seroquel DVT Prophylaxis -On Eliquis DNR/DNI as per discussion with pt Follows with Dr Melgoza for routine care Pt was seen and care coordinated with Dr Galarza. 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 Further history obtained from patient's daughter. Reports patient woke up later today than usual around 9:00AM, as she was seen at [facility] ER and was tired from not going to bed at her normal time. Reports patient was at baseline and took her morning medication. Around noon today she told her daughter that she didn't "feel right". Daughter states got patient up off recliner and she was stumbling. Reports that patient then started to mumble and couldn't make out her words so she called EMS. Denies any known fall. Patient uses walker at home. Currently in ER patient still with mumbled speech. She denies fever/chills, dysphagia, SANON, dizziness, vision changes, extremity weakness, CP, SOB, N/V/D. Does report some right shoulder discomfort with movement of her right arm. Patient with history hospitalization 04/26/2021-05/03/2021 for Chest pain, headache, Acute hypoxic respiratory failure, Pleural effusion, hypertensive urgency, AMARIS. During that admission BP had improved and Hydralazine discontinued. Spironolactone was discontinued secondary to AMARIS however renal functions improved and Lasix was resumed. History ER visit 05/18/21: abdominal pain with unremarkable workup. ER visit on 05/20/21: CP with unremarkable workup. ER visit on 05/21/21: back pain with L- spine CT showed degenerative changes and no acute fracture. In past patient had been on hospice however is no longer on as her condition is stable per daughter. Allergies Allergy/AdvReac Type Severity Reaction Status Date / Time Penicillins Allergy Intermediate Rash Verified 05/22/21 15:27 Quinolones Allergy Intermediate Rash Verified 05/22/21 15:27 aspirin AdvReac Mild burning in Verified 05/22/21 15:27 stomach Home Medications Medication Instructions Recorded Confirmed Type sennosides 8.6 mg-docusate sodium 2 tab-cap PO DAILY 09/06/20 05/22/21 History 50 mg tablet (Senna with Docusate Sodium) carboxymethylcellulose 0.5 1 drp OPHTHALMIC (EYE) QID PRN 02/13/21 05/22/21 History %-glycerin 0.9 % eye drops (Refresh Optive) carvedilol 6.25 mg tablet (Coreg) 6.25 mg PO BID 02/13/21 05/22/21 History quetiapine 25 mg tablet (Seroquel) 12.5 mg PO BID 02/13/21 05/22/21 History simethicone 125 mg chewable tablet 125 mg PO QID PRN 02/13/21 05/22/21 History pantoprazole 40 mg tablet,delayed 40 mg PO DAILY 04/26/21 05/22/21 History release amlodipine 5 mg tablet (Norvasc) 5 mg PO HS #30 tab 05/03/21 05/22/21 Rx apixaban 2.5 mg tablet 2.5 mg PO BID 05/03/21 05/22/21 History furosemide 40 mg tablet (Lasix) 40 mg PO DAILY #30 tab 05/03/21 05/22/21 Rx potassium chloride 10 mEq 10 meq PO BID 05/21/21 05/22/21 History capsule,extended release isosorbide dinitrate 20 mg tablet 20 mg PO TID 05/22/21 05/22/21 History Past Med/Surg History Medical History Atrophy of left kidney Chest pain CHF due to valvular disease Coronary artery disease DM type 2 (diabetes mellitus, type 2) Do not resuscitate status Dyslipidemia Goals of care, counseling/discussion LBBB (left bundle branch block) Mild aortic stenosis Mild mitral stenosis Mitral regurgitation Nephrotic syndrome Palliative care encounter Severe protein-calorie malnutrition Subclavian arterial stenosis Weakness Surgical History H/O repair of left rotator cuff H/O varicose vein stripping History of appendectomy History of hysterectomy History of stent insertion of renal artery R renal artery; [facility] Family History (Updated 05/22/21 @ 17:22 by Mandie Tatum PA-C) Other COPD (chronic obstructive pulmonary disease) Cancer Diabetes Hypertension Stroke Denies family history of Kidney disease Social History Smoking Status: Never smoker Tobacco Type: Cigarettes Hx Alcohol Use: No Hx Substance Use: No Preferred Language: Korean 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 Ability: Effective Distillation 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: No Beliefs That Will Affect Care: None marital status: Single Current Living Situation: Family Current Living Situation Comment: lives w/ dtr How many Children do You have: 1 Feels Safe at Home: Yes Assistive Devices: Oxygen - at Night Review of Systems Review of Systems: Unobtainable due to cognitive status Physical Exam Physical Exam: General: no distress, WDWN Head: normocephalic, atraumatic Eyes: PERRL, EOM's intact, conjunctiva non-injected, anicteric ENT: normal inspection external ears, nose, mucous membranes moist Neck: supple, trachea midline, non-tender Lungs: clear, no respiratory distress, no wheezing/rhonchi/rales CV: RRR, no murmur, no JVD, no pretibial edema Abd: normal BS, soft, non-tender Ext: no cyanosis, no calf tenderness Neuro: A&O x 3, no focal deficits noted, normal affect Skin: warm, dry Results & Data Results & Data ([facility]) Vital Signs (Past 12 Hours) Vital Signs Temp Pulse Pulse Resp BP BP Pulse Ox 05/22/21 16:00 77 20 192/77 H 95 05/22/21 15:20 74 16 207/72 H 95 05/22/21 14:36 36.8 C 206/74 H 05/22/21 14:00 86 23 190/91 H 93 Laboratory Results Short CBC 05/22/21 05/22/21 Range/Units 15:14 15:14 WBC 7.43 (4.8-10.8) K/uL Hgb 9.8 L (12.0-16.0) g/dL Hct 31.8 L (37-47) % Plt Count 306 (130-400) K/uL Creatinine 1.79 H (0.6-1.2) mg/dl BMP 05/22/21 15:14 Sodium 135 L Potassium 3.4 L Chloride 104 Carbon Dioxide 23 BUN 37 H Creatinine 1.79 H Glucose 90 Calcium 8.3 L Liver Function 05/22/21 Range/Units 15:14 Total Bilirubin 0.4 (0.2-1.0) mg/dl AST 23 (13-39) U/L ALT 9 (7-52) U/L Alkaline Phosphatase 97 (34-104) U/L Albumin 3.6 (3.4-5.0) gm/dl Urine 05/22/21 Range/Units Unknown Urine Color Yellow Urine Appearance Clear (Clear) Urine pH 5.0 (4.5-7.5) Ur Specific [place]ruff 1.014 (1.000-1.030) Urine Protein 2+ H (Negative) Urine Glucose (UA) Negative (Negative) Diagnostic Findings Head CT 05/22/21 13:39 CT SCAN OF THE BRAIN WITHOUT IV CONTRAST CLINICAL HISTORY: Strokelike symptoms. COMPARISON STUDY: CT of the brain dated 04/05/2021. TECHNIQUE: Unenhanced axial CT scan of the brain is performed from the vertex to the skull base. A dose lowering technique was utilized adhering to the principles of ALARA. The patient was scanned twice due to motion artifact. CT DOSE: 1160.96 mGy.cm FINDINGS: Brain parenchyma: There are age-related involutional changes noting mild to moderate subcortical and periventricular microangiopathic change. There is no hemorrhage, mass effect, or evidence of acute territorial ischemia by CT criteria. 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 Duenas-white matter differentiation is preserved. No extra-axial fluid collection is seen. Ventricles, sulci, cisterns: Prominent secondary to involutional change. Intracranial vasculature: There is atherosclerotic calcification of the cavernous carotid and vertebral arteries. Calvarium: Unremarkable. 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 The paranasal sinuses are otherwise clear. The mastoid air cells are well pneumatized. Orbits: The bony orbits are grossly intact. There are bilateral ocular lens implants. IMPRESSION: There is no hemorrhage, mass effect, or evidence of acute territorial ischemia by CT criteria. ACT 112: Negative or not required by law. Electronically signed by: Abran Chu M.D. 05/22/2021 1:56 PM Head CTA 05/22/21 13:48 CT angio head w con CLINICAL HISTORY: stroke aler . Confusion difficulty speaking COMPARISON STUDY: CT brain without contrast from 05/22/2021 CT DOSE: TECHNIQUE: CT Angio of the brain was performed.followed by image post processing with coronal, and sagittal MIP reformats. Contrast Volume: Optiray 320, 120 ml FINDINGS: Vascular findings: There is normal enhancement within the internal carotid arteries bilaterally. There is normal enhancement noted within the anterior, middle and posterior cerebral arteries. Nonvascular findings: There is homogeneous attenuation of the brain parenchyma bilaterally. There is no evidence for an acute infarct or cerebral edema. The ventricles are mildly dilated bilaterally. There is no abnormal enhancement. IMPRESSION: Negative CT angiogram of the brain with contrast. ACT 112: Negative or not required by law. Electronically signed by: Jhonatan Nayak M.D. 05/22/2021 2:19 PM Neck CTA 05/22/21 13:48 CT ANGIOGRAM OF THE NECK CLINICAL HISTORY: Strokelike symptoms. COMPARISON STUDY: MR angiogram of the neck dated 09/30/2020. TECHNIQUE: Following the IV administration of 100 of Optiray 320, CT angiogram of the neck was performed from the aortic arch to the skull base. Images are reviewed in the axial, sagittal, and coronal planes. 3-D MIPS images are created and assessed. IV contrast was administered without complication. All measurements were calculated based on NASCET criteria. A dose lowering technique was utilized adhering to the principles of ALARA. CT DOSE: 413.46 mGy.cm FINDINGS: Thoracic aorta: There is advanced atherosclerotic calcification of the thoracic aorta. Visualized portions of the thoracic aorta are normal in caliber. The aortic arch demonstrates standard 3-vessel anatomy. Right carotid arterial system: The right common carotid artery is widely patent, as is the right internal carotid artery. Noting age-related involutional change there is moderate stenosis at the origin of the right external carotid artery. The external carotid artery is otherwise patent. Calcified plaque is noted in the carotid bulb. Left carotid arterial system: The left common carotid artery is widely patent as are the left internal and external carotid arteries. Calcified plaque is noted in the carotid bulb. Vertebral arteries: The vertebral arteries are widely patent bilaterally and codominant. Subclavian arteries: Widely patent bilaterally. Atherosclerotic plaque and irregularity is noted on the left. Intracranial vasculature: The visualized intracranial vessels at the skull base are patent. Jugular veins: Widely patent bilaterally. Brain parenchyma: The visualized brain parenchyma the skull base is within normal limits. Lung apices: Intralobular septal thickening is noted throughout the upper lobes. Soft tissues: The visualized pharyngeal soft tissues are normal in appearance noting angiographic phase technique. The oropharyngeal airway appears widely patent. The thyroid gland is enlarged and heterogeneous, and contains coarse calcifications. The salivary glands are normal in appearance. No cervical lymphadenopathy is seen. Skeletal structures: The skeletal structures are osteopenic. The visualized calvarium at the skull base appears intact. The imaged cervical spine is maintained noting advanced multilevel spondylosis. No lytic or blastic lesion is seen. IMPRESSION: 1. 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 2. Otherwise unremarkable CT angiogram of the neck. 3. Intralobular septal thickening is noted throughout the upper lobes. This could be seen with acute versus chronic congestive change and clinical correlation will be required. ACT 112: Negative or not required by law. Electronically signed by: Abran Chu M.D. 05/22/2021 2:23 PM Supervising Physician Co-Signing Physician Notes I saw this patient with the physician biology research assistant, I participated in the history, physical, review of systems, and physical exam. I reviewed the medications with the patient and the physician biology research assistant and helped reconcile the medications. I helped take a detailed family and social history as well. I formulated the assessment and plan personally with the physician biology research assistant and went over it with the patient. Physical Exam Gen-AAO x 2, NAD, Afebrile, surinamese speaking, but colombian ok, confused, pleasant Head-NCAT, EOMI, PERRLA, Anicteric Sclera, No Posterior Pharyngeal Erythema Neck-Supple, No JVD, No Thyromegaly, No Masses, No LAD, No Bruits Lungs-Clear to Auscultation Bilaterally, No Rales, No Rhonchi, No Wheezing, No Crepitus Chest-No S4, +S1, +S2, No S3, No Murmurs, No Rubs, No Gallops, No Ectopy Abdomen-Soft, Bowel Sounds Present, Non Tender, Non Distended, No Hepatomegaly, No Splenomegaly, No Palpable Masses, No Rebound, No Rigidity, No Guarding Musculoskeletal-Full Range of Motion Bilaterally, No CVAT Extremities-No Cyanosis, No Clubbing, No Edema Nuero-Cranial Nerves II-XII grossly intact, Motor WNL, DTRs WNL, Strength WNL, Non Focal Psych-Normal Mood
[2021-05-22] MEDS: POTASSIUM CHLORIDE / WTR 10 MEQ/100 ML PLCT IV SCH ×4 (16:39→19:01)
[2021-05-22 17:01] LABS: Albumin Globulin Ratio 1.6 (0.9-2); Albumin Level 3.6 gm/dl (3.4-5.0); BUN Creatinine Ratio 20.7 (10-20); Bilirubin,Total 0.4 mg/dl (0.2-1.0); Calcium 8.3 mg/dl (8.5-10.1); Creatinine Clr Calc Pharmacy 15.3 ml/min; Est GFR (African American) 28.6 ml/min; Est GFR (Non-African American) 24.7 ml/min; Globulin 2.3 gm/dl (2.5-4.0); Potassium 3.4 mmol/L (3.5-5.1); Total Protein 5.9 gm/dl (6.0-8.3)
[2021-05-22 18:07] LABS: Thyroid Stimulating Hormone 0.153 uIu/ml (0.300-4.500)
[2021-05-22 18:45] LABS: T4 Free Thyroxine 1.02 ng/dl (0.61-1.60)
--- NOTE | 2021-05-22 21:43 | Electrocardiogram Report ---
Test Reason : Blood Pressure : / mmHG Vent. Rate : 085 BPM Atrial Rate : 085 BPM P-R Int : 158 ms QRS Dur : 164 ms QT Int : 448 ms P-R-T Axes : 083 -23 148 degrees QTc Int : 533 ms Poor data quality, interpretation may be adversely affected Normal sinus rhythm Left bundle branch block Abnormal ECG When compared with ECG of 20-MAY-2021 12:57, No significant change was found Confirmed by Bhanu Rae ([id number]) on 05/22/2021 9:43:03 PM Referred By: REFERRED SELF Confirmed By:Bhanu Rae
[2021-05-22] MEDS ORDERED: CARBOHYDRATES FOR HYPOGLYCEMIA PO PRN (21:48)
[2021-05-22] MEDS ORDERED: DEXTROSE 50% 50 ML SYRINGE IV PRN (21:48)
[2021-05-22] MEDS ORDERED: GLUCAGON FOR INJ 1 MG VIAL SQ PRN (21:48)
[2021-05-22] MEDS ORDERED: GLUCOSE 10 TABS/TUBE PO PRN (21:48)
[2021-05-22] MEDS ORDERED: GLUCOSE 40% GEL 15 GM TUBE PO PRN (21:48)
[2021-05-22] MEDS ORDERED: POLYETHYLENE (MIRALAX) 17 GM PACK PO PRN (21:48)
[2021-05-22] MEDS ORDERED: PHARMACIST DISCHARGE MED REC CONSULT PRN (21:48)
[2021-05-22] MEDS ORDERED: ISOSORBIDE DINITRATE 20 MG TAB PO SCH (22:00)
[2021-05-22] MEDS ORDERED: ARTIFICIAL TEARS OP PRN (22:00)
[2021-05-22] MEDS: INSULIN ASPART PER UNIT SC SCH (22:06)
[2021-05-22] MEDS: APIXABAN 2.5 MG TAB PO SCH (22:41)
[2021-05-22] MEDS: POTASSIUM CHLORIDE 10 MEQ TABCR PO SCH (22:41)
[2021-05-22] MEDS: amLODIPine BESYLATE 5 MG TAB PO SCH (22:42)
[2021-05-22] MEDS: carvediloL 6.25 MG TAB PO SCH (22:42)
[2021-05-22] MEDS: QUEtiapine FUMARATE 25 MG TABLET PO SCH (22:42)
[2021-05-23] MEDS ORDERED: NITROGLYCERIN SL 0.4 MG/TAB TAB SL STA (00:46)
[2021-05-23] MEDS: METOPROLOL TARTRATE 1 MG/ML VIAL IV STA ×2 (01:08→01:19)
[2021-05-23] MEDS: SIMETHICONE 80 MG CHEW PO PRN ×2 (04:22→20:55)
[2021-05-23] MEDS ORDERED: MoRPHine SULFATE 2 MG/ML CARP IV STA (05:41)
--- NOTE | 2021-05-23 07:32 | Emergency Department Note ---
Impression & Plan Acute alteration in mental status, Expressive aphasia ED Provider Note CHIEF COMPLAINT: expressive aphasia, hypertension, HISTORY OF PRESENT ILLNESS: This 89-year-old female patient presents to the emergency department with complaints of inability to speak at 1230. Patient has been in the emergency department several times this week for various complaints of chest pain, abdominal pain and back pain. There is no known trauma or fall. Patient has had no fever and no reports of unilateral weakness or confusion. She has been able to follow commands. She does have a complicated past medical history congestive heart failure and is chronically anticoagulated with Eliquis. She apparently lives at home with her daughter. REVIEW OF SYSTEMS: A review of systems was performed with positives and pertinent negatives listed in the history of present illness. 10 systems were reviewed and are otherwise negative. ALLERGIES: see below MEDICATIONS: see below PMH: see below SOCIAL HISTORY: see below DDx: Infection, dehydration, metabolic abnormality, hypo/hyperglycemia, electr olyte disturbance, anemia, hypoxia, cardiac sources, intracerebral event, toxicologic, neurologic, as well as other pathologies. PHYSICAL EXAM: Vital signs reviewed. General: Well-appearing 89 yo female, in no significant distress. HEENT: No scleral icterus, PERRLA, neck supple. Atraumatic. Cardiovascular: Regular rate and rhythm, no extra sounds. Systolic ejection murmur. Pulmonary: Clear to auscultation bilaterally, normal work of breathing. Abdomen: Soft, nontender, nondistended, positive bowel sounds. Musculoskeletal: Atraumatic, no peripheral edema. Neurologic: Patient awake alert and following commands, attempts to speak and mouths appropriate words. Skin: Warm, dry, no rash EMERGENCY DEPARTMENT COURSE/MDM: This pt was evaluated and appeared to be in no distress. IV access was difficult to obtain and IV team was needed. There was a significant delay in obtaining laboratory work as it was not able to be drawn through the IV that was placed. Patient was placed on metal tile lather and noted to be in a normal sinus rhythm. Blood pressure is noted to be elevated. CT cayden ging of the head reveals no evidence of acute intracranial abnormality. CT angios reveal chronic changes, no evidence of acute focal occlusion or hemorrhage. Laboratory work was indicative of some chronic renal insufficiency and a prerenal state. UA is negative for infection. EKG reveals a left bundle branch block with nonspecific ST changes. Patient was discussed with the hospitalist service for admission and further management. On my reevaluation the patient, she had expressed her concerns that her Lu catheter had leaked, she was able to assist me in changing her bed linens and cleaning her up. Nursing staff was at the bedside. Patient is aware of the plan for admission and agrees. MONITORING: An order for cardiac monitoring was placed and the patient is noted to be in a NSR at 76 beats per minute. RADIOLOGY: see below EKG:NSR at 89 bpm, LBBB, QTc 533, nonspecific ST changes. no PVC, no PAC. no change from 05/22/21 DISPOSITION: admit Past Med/Surg History Medical History Atrophy of left kidney Chest pain CHF due to valvular disease Coronary artery disease DM type 2 (diabetes mellitus, type 2) Do not resuscitate status Dyslipidemia Goals of care, counseling/discussion LBBB (left bundle branch block) Mild aortic stenosis Mild mitral stenosis Mitral regurgitation Nephrotic syndrome Palliative care encounter Severe protein-calorie malnutrition Subclavian arterial stenosis Weakness Surgical History H/O repair of left rotator cuff H/O varicose vein stripping History of appendectomy History of hysterectomy History of stent insertion of renal artery R renal artery; 2020 in [facility] Family History Other COPD (chronic obstructive pulmonary disease) Cancer Diabetes Hypertension Stroke Denies family history of Kidney disease Social History Smoking Status: Former smoker Tobacco Type: Cigarettes Second Hand Exposure: No; Hx Alcohol Use: No Hx Substance Use: No Preferred Language: Chinese 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 Ability: Impaired Party Coordinator Required: No Beliefs That Will Affect Care: None marital status: Single Current Living Situation: Family Current Living Situation Comment: lives w/ dtr How many Children do You have: 1 Feels Safe at Home: Yes Assistive Devices: Walker Allergies Allergies Allergy/AdvReac Type Severity Reaction Status Date / Time Penicillins Allergy Intermediate Rash Verified 05/22/21 15:27 Quinolones Allergy Intermediate Rash Verified 05/22/21 15:27 aspirin AdvReac Mild burning in Verified 05/22/21 15:27 stomach Home Meds Home Medications Medication Instructions Recorded Confirmed sennosides 8.6 mg-docusate sodium 2 tab-cap PO DAILY 09/06/20 05/22/21 50 mg tablet (Senna with Docusate Sodium) carboxymethylcellulose 0.5 1 drp OPHTHALMIC (EYE) QID PRN 02/13/21 05/22/21 %-glycerin 0.9 % eye drops (Refresh Optive) carvedilol 6.25 mg tablet (Coreg) 6.25 mg PO BID 02/13/21 05/22/21 quetiapine 25 mg tablet (Seroquel) 12.5 mg PO BID 02/13/21 05/22/21 simethicone 125 mg chewable tablet 125 mg PO QID PRN 02/13/21 05/22/21 pantoprazole 40 mg tablet,delayed 40 mg PO DAILY 04/26/21 05/22/21 release apixaban 2.5 mg tablet 2.5 mg PO BID 05/03/21 05/22/21 potassium chloride 10 mEq 10 meq PO BID 05/21/21 05/22/21 capsule,extended release isosorbide dinitrate 20 mg tablet 20 mg PO TID 05/22/21 05/22/21 Previous Rx's Medication Instructions Recorded amlodipine 5 mg tablet (Norvasc) 5 mg PO HS #30 tab 05/03/21 furosemide 40 mg tablet (Lasix) 40 mg PO DAILY #30 tab 05/03/21 atorvastatin 40 mg tablet 40 mg PO QAM #30 tab 05/24/21 clopidogrel 75 mg tablet 75 mg PO QAM #30 tab 05/24/21 isosorbide dinitrate 40 mg tablet 40 mg PO TID@0700,1200,1700 #90 tab 05/24/21 (Isordil) Results & Data (ED) Vital Signs Vital Signs - 24 hr 05/22/21 14:00 05/22/21 14:34 05/22/21 14:36 Temperature 36.8 C Temperature Source Oral Pulse Rate 86 Pulse Rate [Left] Pulse Rate from SpO2 Sensor Pulse Rhythm [Left] Respiratory Rate 23 Respiratory Effort / Characteristics Respiratory Depth Normal Blood Pressure 190/91 H Blood Pressure [Right Arm] 206/74 H Blood Pressure Mean 124 Blood Pressure Mean [Right Arm] 118 Blood Pressure Position [Right Arm] Pulse Oximetry 93 Oxygen Delivery Method Room Air Room Air Sepsis Recent Fever Within 48 Hours No Sepsis New/Unexplained Change in Mental Status No Sepsis Action Taken by Nursing No Action Required 05/22/21 15:20 05/22/21 16:00 Temperature Temperature Source Pulse Rate 77 Pulse Rate [Left] 74 Pulse Rate from SpO2 Sensor 78 Pulse Rhythm [Left] Regular Respiratory Rate 16 20 Respiratory Effort / Characteristics Non-Labored Spontaneous Respiratory Depth Normal Blood Pressure 192/77 H Blood Pressure [Right Arm] 207/72 H Blood Pressure Mean 115 Blood Pressure Mean [Right Arm] 117 Blood Pressure Position [Right Arm] Lying Pulse Oximetry 95 95 Oxygen Delivery Method Room Air Sepsis Recent Fever Within 48 Hours Sepsis New/Unexplained Change in Mental Status Sepsis Action Taken by Assisted Medications Current Medication List: was personally reviewed by me Laboratory Data Attestation: I reviewed the patient's lab results. Result diagrams: 05/24/21 05:50 05/24/21 05:50 Lab Results 05/22/21 05/22/21 05/22/21 Range/Units 14:20 14:45 15:14 WBC 7.43 (4.8-10.8) K/uL RBC 4.68 (4.2-5.4) M/uL Hgb 9.8 L (12.0-16.0) g/dL Hct 31.8 L (37-47) % MCV 67.9 L (80-100) fL MCH 20.9 L (25-34) pg MCHC 30.8 L (32-36) g/dL RDW Std Deviation 54.2 H (36.4-46.3) fL RDW Coeff of Dion 21.8 H (11.5-14.5) % Plt Count 306 (130-400) K/uL MPV 8.7 (7.4-10.4) fL PT (9.0-12.0) Seconds INR (0.9-1.1) APTT (21.0-31.0) Seconds PTT Ratio Sodium (136-145) mmol/L Potassium (3.5-5.1) mmol/L Chloride (98-107) mmol/L Carbon Dioxide (21-32) mmol/L Anion Gap (3-11) BUN (6-23) mg/dl Creatinine (0.6-1.2) mg/dl Est Cr Clr Drug Dosing ml/min Est GFR ( Amer) ml/min Est GFR (Non-Af Amer) ml/min BUN/Creatinine Ratio (10-20) Glucose (70-99(Fasting)) mg/dl POC Glucose 126 H (70-99) mg/dl Calcium (8.5-10.1) mg/dl Magnesium (1.7-2.4) mg/dl Total Bilirubin (0.2-1.0) mg/dl AST (13-39) U/L ALT (7-52) U/L Alkaline Phosphatase (34-104) U/L Total Protein (6.0-8.3) gm/dl Albumin (3.4-5.0) gm/dl Globulin (2.5-4.0) gm/dl Albumin/Globulin Ratio (0.9-2) TSH (0.300-4.500) uIu/ml Free T4 (0.61-1.60) ng/dl SARS-CoV-2, RNA, NAAT NEGATIVE (NEGATIVE) 05/22/21 05/22/21 05/22/21 Range/Units 15:14 15:14 15:14 WBC (4.8-10.8) K/uL RBC (4.2-5.4) M/uL Hgb (12.0-16.0) g/dL Hct (37-47) % MCV (80-100) fL MCH (25-34) pg MCHC (32-36) g/dL RDW Std Deviation (36.4-46.3) fL RDW Coeff of Dion (11.5-14.5) % Plt Count (130-400) K/uL MPV (7.4-10.4) fL PT 10.1 (9.0-12.0) Seconds INR 1.0 (0.9-1.1) APTT 23.9 (21.0-31.0) Seconds PTT Ratio 0.9 Sodium 135 L (136-145) mmol/L Potassium 3.4 L (3.5-5.1) mmol/L Chloride 104 (98-107) mmol/L Carbon Dioxide 23 (21-32) mmol/L Anion Gap 8 (3-11) BUN 37 H (6-23) mg/dl Creatinine 1.79 H (0.6-1.2) mg/dl Est Cr Clr Drug Dosing 15.3 ml/min Est GFR ( Amer) 28.6 ml/min Est GFR (Non-Af Amer) 24.7 ml/min BUN/Creatinine Ratio 20.7 H (10-20) Glucose 90 (70-99(Fasting)) mg/dl POC Glucose (70-99) mg/dl Calcium 8.3 L (8.5-10.1) mg/dl Magnesium 2.0 (1.7-2.4) mg/dl Total Bilirubin 0.4 (0.2-1.0) mg/dl AST 23 (13-39) U/L ALT 9 (7-52) U/L Alkaline Phosphatase 97 (34-104) U/L Total Protein 5.9 L (6.0-8.3) gm/dl Albumin 3.6 (3.4-5.0) gm/dl Globulin 2.3 L (2.5-4.0) gm/dl Albumin/Globulin Ratio 1.6 (0.9-2) TSH 0.153 L (0.300-4.500) uIu/ml Free T4 1.02 (0.61-1.60) ng/dl SARS-CoV-2, RNA, NAAT (NEGATIVE) Administered Medications Discontinued Medications Acetaminophen (Acetaminophen 325 Mg Tab) 650 mg PO Q4H PRN PRN Reason: Pain or Fever Stop: 06/21/21 21:47 Last Admin: 05/24/21 11:27 Dose: 650 mg Documented by: [id number] Admin: 05/23/21 21:00 Dose: 650 mg Documented by: [id number] Amlodipine Besylate (Amlodipine Besylate 5 Mg Tab) 5 mg PO HS WYATT Stop: 06/21/21 21:59 Last Admin: 05/23/21 20:58 Dose: 5 mg Documented by: [id number] Admin: 05/22/21 22:42 Dose: 5 mg Documented by: [id number] Apixaban (Apixaban 2.5 Mg Tab) 2.5 mg PO BID WYATT Stop: 06/21/21 21:59 Last Admin: 05/24/21 08:36 Dose: 2.5 mg Documented by: [id number] Admin: 05/23/21 20:56 Dose: 2.5 mg Documented by: [id number] Admin: 05/23/21 08:20 Dose: 2.5 mg Documented by: [id number] Admin: 05/22/21 22:41 Dose: 2.5 mg Documented by: [id number] Aspirin (Aspirin 81 Mg Ectab) 81 mg PO QAM WYATT Stop: 06/22/21 14:59 Last Admin: 05/23/21 16:10 Dose: Not Given Documented by: [id number] Aspirin (Aspirin 81 Mg Chew) 324 mg PO NOW STA Stop: 05/24/21 12:07 Last Admin: 05/24/21 12:37 Dose: 324 mg Documented by: [id number] Atorvastatin Calcium (Atorvastatin 40 Mg Tab) 40 mg PO QA WYATT Stop: 06/22/21 08:59 Last Admin: 05/24/21 08:36 Dose: 40 mg Documented by: [id number] Admin: 05/23/21 08:20 Dose: 40 mg Documented by: [id number] Carvedilol (Carvedilol 6.25 Mg Tab) 6.25 mg PO BID WYATT Stop: 06/21/21 21:59 Last Admin: 05/24/21 08:36 Dose: 6.25 mg Documented by: [id number] Admin: 05/23/21 20:56 Dose: 6.25 mg Documented by: [id number] Admin: 05/23/21 08:20 Dose: 6.25 mg Documented by: [id number] Admin: 05/22/21 22:42 Dose: 6.25 mg Documented by: [id number] Clopidogrel Bisulfate (Clopidogrel Bisulfate 75 Mg Tab) [facility] Stop: 06/23/21 08:59 Last Admin: 05/24/21 08:37 Dose: 75 mg Documented by: [id number] Furosemide (Furosemide 40 Mg Tab) 40 mg PO DAILY WYATT Stop: 06/22/21 08:59 Last Admin: 05/24/21 08:36 Dose: 40 mg Documented by: [id number] Admin: 05/23/21 08:21 Dose: 40 mg Documented by: [id number] Hydromorphone HCl (Hydromorphone Inj 0.5 Mg/0.5 Ml Syr) 0.25 mg IV NOW STA Stop: 05/23/21 21:25 Last Admin: 05/23/21 21:44 Dose: 0.25 mg Documented by: [id number] Sodium Chloride (Nss 1000ml) 1,000 mls @ 80 mls/hr IV .[id number] WYATT Stop: 06/21/21 14:29 Last Infusion: 05/22/21 21:49 Dose: 0 mls/hr Documented by: [id number] Infusion: 05/22/21 21:49 Dose: 0 mls/hr Documented by: [id number] Admin: 05/22/21 16:38 Dose: 80 mls/hr Documented by: [id number] Potassium Chloride (K Kentrell / Wtr) 10 meq in 100 mls @ 100 mls/hr IV Q1H WYATT; Protocol Stop: 05/22/21 16:29 Last Admin: 05/22/21 16:40 Dose: Not Given Documented by: [id number] Admin: 05/22/21 16:39 Dose: Not Given Documented by: [id number] Potassium Chloride (K Kentrell / Wtr) 10 meq in 100 mls @ 100 mls/hr IV Q1H WYATT; Protocol Stop: 05/22/21 19:14 Last Infusion: 05/22/21 19:02 Dose: 0 mls/hr Documented by: [id number] Admin: 05/22/21 19:01 Dose: 100 mls/hr Documented by: [id number] Infusion: 05/22/21 18:23 Dose: 100 mls/hr Documented by: [id number] Admin: 05/22/21 17:23 Dose: 100 mls/hr Documented by: [id number] Insulin Aspart (Insulin Aspart Per Unit) 0 units SC ACHS WYATT Stop: 06/21/21 21:59 Last Admin: 05/24/21 12:21 Dose: Not Given Documented by: [id number] Admin: 05/24/21 08:34 Dose: Not Given Documented by: [id number] Admin: 05/23/21 20:58 Dose: Not Given Documented by: [id number] Cosigned by: [id number] Admin: 05/23/21 17:56 Dose: 1 units Documented by: [id number] Cosigned by: [id number] Admin: 05/23/21 13:15 Dose: Not Given Documented by: [id number] Admin: 05/23/21 08:22 Dose: Not Given Documented by: [id number] Admin: 05/22/21 22:06 Dose: Not Given Documented by: [id number] Cosigned by: [id number] Ioversol (Optiray 320 125ml) 120 ml IV ONCE ONE Stop: 05/22/21 14:15 Last Admin: 05/22/21 14:07 Dose: 120 ml Documented by: [id number] Isosorbide Dinitrate (Isosorbide Dinitrate 20 Mg Tab) 20 mg PO TID@0700,1200,1700 WYATT Stop: 06/22/21 06:59 Last Admin: 05/24/21 12:37 Dose: 20 mg Documented by: [id number] Admin: 05/24/21 06:39 Dose: 20 mg Documented by: [id number] Admin: 05/23/21 17:55 Dose: 20 mg Documented by: [id number] Admin: 05/23/21 13:13 Dose: 20 mg Documented by: [id number] Admin: 05/23/21 08:20 Dose: 20 mg Documented by: [id number] Metoprolol Tartrate (Metoprolol Tartrate 1 Mg/Ml Vial) 5 mg IV NOW STA Stop: 05/23/21 00:46 Last Admin: 05/23/21 01:19 Dose: Not Given Documented by: [id number] Morphine Sulfate (Morphine Sulfate 2 Mg/Ml Carp) 2 mg IV NOW STA Stop: 05/23/21 05:42 Last Admin: 05/23/21 06:11 Dose: 2 mg Documented by: [id number] Nitroglycerin (Nitroglycerin Sl 0.4 Mg/Tab Tab) 0.4 mg SL NOW STA Stop: 05/23/21 00:47 Last Admin: 05/23/21 01:09 Dose: 0.4 mg Documented by: [id number] Pantoprazole Sodium (Pantoprazole 40 Mg Tab) 40 mg PO DAILY WYATT Stop: 06/22/21 08:59 Last Admin: 05/24/21 08:36 Dose: 40 mg Documented by: [id number] Admin: 05/23/21 08:21 Dose: 40 mg Documented by: [id number] Potassium Chloride (Potassium Chloride 10 Meq Tabcr) 10 meq PO BID WYATT Stop: 06/21/21 21:59 Last Admin: 05/24/21 08:35 Dose: 10 meq Documented by: [id number] Admin: 05/23/21 20:56 Dose: 10 meq Documented by: [id number] Admin: 05/23/21 08:21 Dose: 10 meq Documented by: [id number] Admin: 05/22/21 22:41 Dose: 10 meq Documented by: [id number] Potassium Chloride (Potassium Chloride 20 Meq/15 Ml Udc) 20 meq PO BID WYATT Stop: 06/22/21 11:29 Last Admin: 05/24/21 08:37 Dose: 20 meq Documented by: [id number] Admin: 05/23/21 20:58 Dose: 20 meq Documented by: [id number] Admin: 05/23/21 13:33 Dose: 20 meq Documented by: [id number] Quetiapine Fumarate (Quetiapine Fumarate 25 Mg Tablet) 12.5 mg PO BID WYATT Stop: 06/21/21 21:59 Last Admin: 05/24/21 08:35 Dose: 12.5 mg Documented by: [id number] Admin: 05/23/21 20:57 Dose: 12.5 mg Documented by: [id number] Admin: 05/23/21 08:21 Dose: 12.5 mg Documented by: [id number] Admin: 05/22/21 22:42 Dose: 12.5 mg Documented by: [id number] Senna/Docusate Sodium (Docusate Sodium/Senna 50/8.6mg Tab) 2 tab PO DAILY WYATT Stop: 06/22/21 08:59 Last Admin: 05/24/21 08:36 Dose: 2 tab Documented by: [id number] Admin: 05/23/21 08:20 Dose: 2 tab Documented by: [id number] Simethicone (Simethicone 80 Mg Chew) 80 mg PO QID PRN PRN Reason: Gas Stop: 06/21/21 21:56 Last Admin: 05/23/21 20:55 Dose: 80 mg Documented by: [id number] Admin: 05/23/21 04:22 Dose: 80 mg Documented by: [id number] Imaging Data Radiologist's Impression: Head CT 05/22/21 13:39 CT SCAN OF THE BRAIN WITHOUT IV CONTRAST CLINICAL HISTORY: Strokelike symptoms. COMPARISON STUDY: CT of the brain dated 04/05/2021. TECHNIQUE: Unenhanced axial CT scan of the brain is performed from the vertex to the skull base. A dose lowering technique was utilized adhering to the fred nicolasples frances DIETRICH. The patient was scanned twice due to motion artifact. CT DOSE: 1160.96 mGy.cm FINDINGS: Brain parenchyma: There are age-related involutional changes noting mild to moderate subcortical and periventricular microangiopathic change. There is no hemorrhage, mass effect, or evidence of acute territorial ischemia by CT criteria. 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 Duenas-white matter differentiation is preserved. No extra-axial fluid collection is seen. Ventricles, sulci, cisterns: Prominent secondary to involutional change. Intracranial vasculature: There is atherosclerotic calcification of the cavernous carotid and vertebral arteries. Calvarium: Unremarkable. 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 The paranasal sinuses are otherwise clear. The mastoid air cells are well pneumatized. Orbits: The bony orbits are grossly intact. There are bilateral ocular lens implants. IMPRESSION: There is no hemorrhage, mass effect, or evidence of acute territorial ischemia by CT criteria. ACT 112: Negative or not required by law. Electronically signed by: Abran Chu M.D. 05/22/2021 1:56 PM Head CTA 05/22/21 13:48 CT angio head w con CLINICAL HISTORY: stroke aler . Confusion difficulty speaking COMPARISON STUDY: CT brain without contrast from 05/22/2021 CT DOSE: TECHNIQUE: CT Angio of the brain was performed.followed by image post process ing with coronal, and sagittal MIP reformats. Contrast Volume: Optiray 320, 120 ml FINDINGS: Vascular findings: There is normal enhancement within the internal carotid arteries bilaterally. There is normal enhancement noted within the anterior, middle and posterior cerebral arteries. Nonvascular findings: There is homogeneous attenuation of the brain parenchyma bilaterally. There is no evidence for an acute infarct or cerebral edema. The ventricles are mildly dilated bilaterally. There is no abnormal enhancement. IMPRESSION: Negative CT angiogram of the brain with contrast. ACT 112: Negative or not required by law. Electronically signed by: Jhonatan Nayak M.D. 05/22/2021 2:19 PM Neck CTA 05/22/21 13:48 CT ANGIOGRAM OF THE NECK CLINICAL HISTORY: Strokelike symptoms. COMPARISON STUDY: MR angiogram of the neck dated 09/30/2020. TECHNIQUE: Following the IV administration of 100 of Optiray 320, CT angiogram of the neck was performed from the aortic arch to the skull base. Images are reviewed in the axial, sagittal, and coronal planes. 3-D MIPS images are created and assessed. IV contrast was administered without complication. All measurements were calculated based on NASCET criteria. A dose lowering technique was utilized adhering to the principles of ALARA. CT DOSE: 413.46 mGy.cm FINDINGS: Thoracic aorta: There is advanced atherosclerotic calcification of the thoracic aorta. Visualized portions of the thoracic aorta are normal in caliber. The aortic arch demonstrates standard 3-vessel anatomy. Right carotid arterial system: The right common carotid artery is widely patent, as is the right internal carotid artery. Noting age-related involutional change there is moderate stenosis at the origin of the right external carotid artery. The external carotid artery is otherwise patent. Calcified plaque is noted in the carotid bulb. Left carotid arterial system: The left common carotid artery is widely patent as are the left internal and external carotid arteries. Calcified plaque is noted in the carotid bulb. Vertebral arteries: The vertebral arteries are widely patent bilaterally and codominant. Subclavian arteries: Widely patent bilaterally. Atherosclerotic plaque and irregularity is noted on the left. Intracranial vasculature: The visualized intracranial vessels at the skull base are patent. Jugular veins: Widely patent bilaterally. Brain parenchyma: The visualized brain parenchyma the skull base is within normal limits. Lung apices: Intralobular septal thickening is noted throughout the upper lobes. Soft tissues: The visualized pharyngeal soft tissues are normal in appearance noting angiographic phase technique. The oropharyngeal airway appears widely patent. The thyroid gland is enlarged and heterogeneous, and contains coarse calcifications. The salivary glands are normal in appearance. No cervical lymphadenopathy is seen. Skeletal structures: The skeletal structures are osteopenic. The visualized calvarium at the skull base appears intact. The imaged cervical spine is maintained noting advanced multilevel spondylosis. No lytic or blastic lesion is seen. IMPRESSION: 1. 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 2. Otherwise unremarkable CT angiogram of the neck. 3. Intralobular septal thickening is noted throughout the upper lobes. This could be seen with acute versus chronic congestive change and clinical correl ation will be required. ACT 112: Negative or not required by law. Electronically signed by: Abran Chu M.D. 05/22/2021 2:23 PM Blood Pressure Blood Pressure Findings: Elevated blood pressure Blood Pressure Disposition: further management by hospitalist Discharge Plan Visit Data Chief Complaint: Stroke Alert Stated Complaint: unable to speak ED Provider: Sheela Blackwood Discharge Problem: Acute alteration in mental status, Expressive aphasia Patient Disposition: Admitted As Inpatient Condition: Good Discharge Instructions Interventions: ED Discharge Assessment Last Done: 05/22/21 20:47
[2021-05-23 07:39] LABS: Hematocrit (blood only) 29.2 % (37-47); Mean Corpuscular Hemoglobin 20.8 pg (25-34); Mean Corpuscular Hgb Conc 30.8 g/dL (32-36); Mean Corpuscular Volume 67.4 fL (80-100); Mean Platelet Volume 8.8 fL (7.4-10.4); Platelet Count 316 K/uL (130-400); RDW Coefficient of Variation 21.3 % (11.5-14.5); RDW Standard Deviation 52.7 fL (36.4-46.3); Red Blood Count 4.33 M/uL (4.2-5.4); White Blood Count 8.64 K/uL (4.8-10.8)
[2021-05-23 08:04] LABS: BUN Creatinine Ratio 19.4 (10-20); Calcium 8.3 mg/dl (8.5-10.1); Creatinine Clr Calc Pharmacy 18.3 ml/min; Est GFR (African American) 31.6 ml/min; Est GFR (Non-African American) 27.2 ml/min; Potassium 3.4 mmol/L (3.5-5.1)
[2021-05-23] MEDS: ATORVASTATIN 40 MG TAB PO SCH (08:20)
[2021-05-23] MEDS: APIXABAN 2.5 MG TAB PO SCH ×2 (08:20→20:56)
[2021-05-23] MEDS: carvediloL 6.25 MG TAB PO SCH ×2 (08:20→20:56)
[2021-05-23] MEDS: DOCUSATE SODIUM/SENNA 50/8.6MG TAB PO SCH (08:20)
[2021-05-23] MEDS: ISOSORBIDE DINITRATE 20 MG TAB PO SCH ×3 (08:20→17:55)
[2021-05-23] MEDS: PANTOprazole 40 MG TAB PO SCH (08:21)
[2021-05-23] MEDS: POTASSIUM CHLORIDE 10 MEQ TABCR PO SCH ×2 (08:21→20:56)
[2021-05-23] MEDS: QUEtiapine FUMARATE 25 MG TABLET PO SCH ×2 (08:21→20:57)
[2021-05-23] MEDS: FUROSEMIDE 40 MG TAB PO SCH (08:21)
[2021-05-23] MEDS: INSULIN ASPART PER UNIT SC SCH ×4 (08:22→20:58)
[2021-05-23 08:40] LABS: Troponin I 9.14 ng/ml (0-0.04)
--- NOTE | 2021-05-23 11:40 | Hospitalist Progress Note ---
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 In ER patient afebrile, hypertensive with BP: 207/72 CT head: There is no hemorrhage, mass effect, or evidence of acute territorial ischemia by CT criteria. CTA Head: Negative CT angiogram of the brain with contrast. CTA Neck: Neg 1. 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 2. Otherwise unremarkable CT angiogram of the neck. 3. Intralobular septal thickening is noted throughout the upper lobes. This could be seen with acute versus chronic congestive change and clinical correlation will be required. DDX: TIA vs stroke -lipids -A1C in 04/2021 was 6.9 -TSH pending -MRI brain -echo no PFO EF 35-40% -aspiration precautions -PT/OT consult -statin -continue Eliquis. If stroke seen on MRI consider antiplatelet -allow permissive HTN currently, however anticipate will need to adjust BP meds for improved BP control -neurology consult Chronic diastolic CHF Appears euvolemic -Continue lasix HTN BP may be elevated secondary to acute CVA vs HTN urgency/emergency Prior admission in 04/21-05/23 had HTN urgency with BP med adjustment however BP had improved and Hydralazine dc and Spironolactone was discontinued secondary to AMARIS -Continue amlodipine, carvedilol, lasix, isosorbide -May require further BP med adjustment -Target BP: 150/90 CKD IV Baseline Cr: ~1.8 -Monitor renal functions and avoid nephrotoxic agents when possible DM II A1c: 6.9 in 04/2021 Diet controlled Novolog sliding scale per protocol History PE History splenic infarct Chronic anticoagulation: -Continue Eliquis Dementia -Continue Seroquel DVT Prophylaxis -On Eliquis DNR/DNI as per discussion with pt Follows with Dr Melgoza for routine care ROS-No Headache, No Visual Changes, No Nausea, No Vomiting, No Fever, No Chills, No Neck Pain or Stiffness, No Chest Pain, No Palpitations, No SOB, No HODGE, No Cough, No Sputum, No Wheezing, No Abdominal Pain, No Diarrhea, No Hematemesis, No Hemoptysis, No Unexpected Weight Loss, No Flank pain, No Melena, No Hematochezia, No Frequency, No Urgency, No Burning, No Hematuria, No Rashes, No Diaphoresis. Appetite is Normal Physical Exam Gen-AAO x 3, NAD, Afebrile Head-NCAT, EOMI, PERRLA, Anicteric Sclera, No Posterior Pharyngeal Erythema Neck-Supple, No JVD, No Thyromegaly, No Masses, No LAD, No Bruits Lungs-Clear to Auscultation Bilaterally, No Rales, No Rhonchi, No Wheezing, No Crepitus Chest-No S4, +S1, +S2, No S3, No Murmurs, No Rubs, No Gallops, No Ectopy Abdomen-Soft, Bowel Sounds Present, Non Tender, Non Distended, No Hepatomegaly, No Splenomegaly, No Palpable Masses, No Rebound, No Rigidity, No Guarding Musculoskeletal-Full Range of Motion Bilaterally, No CVAT Extremities-No Cyanosis, No Clubbing, No Edema Nuero-Cranial Nerves II-XII grossly intact, Motor WNL, DTRs WNL, Strength WNL, Non Focal Psych-Normal Mood Admission and Anticipated Discharge Date Admission Date: May 22, 2021 Subjective Patient states that she feels a little better than yesterday Results & Data Results & Data ([facility]) Vital Signs (Past 12 Hours) Vital Signs Temp Pulse Pulse Resp BP BP BP 05/23/21 10:54 37 C 77 20 171/62 H 05/23/21 10:31 75 05/23/21 10:01 165/70 H 05/23/21 07:50 36.3 C L 84 20 194/67 H 05/23/21 03:15 37.2 C 71 16 177/53 H 05/23/21 01:36 37.0 C 82 18 194/72 H 05/23/21 01:34 85 05/23/21 01:19 79 150/58 H 05/23/21 01:15 79 150/58 H 05/23/21 00:30 84 197/75 H Pulse Ox 05/23/21 10:54 96 05/23/21 10:31 05/23/21 10:01 05/23/21 07:50 93 05/23/21 03:15 92 05/23/21 01:36 90 05/23/21 01:34 05/23/21 01:19 05/23/21 01:15 05/23/21 00:30 Laboratory Results Reviewed
--- NOTE | 2021-05-23 12:26 | 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 Note ---
Date of Service: May 23, 2021 Neurology has been asked to evaluate Lety Higuera today in neurologic consultation regarding a possible strokelike episode which occurred yesterday as described in the admitting history and physical very well. The patient unfortunately is somewhat cognitively impaired and slightly confused as currently awaiting an MRI scan and was interviewed in the MRI facility prior to her entering the scan. Her only complaints were that she was hungry and that someone stole her watch. She is not aware of the fact that her speech seemed to be somewhat garbled yesterday and apologized for, knew that she was in the hospital, but could describe no other symptoms occurring with the speech issue and could not tell me how long the event lasted. I refer the reader therefore to the admitting history and physical notes which were obtained after discussing the case with her daughter All this occurs in the setting of hypertension chronic type with a recent admi ssion for hypertensive urgency in April, in the setting of chronic renal failure, history of acute respiratory failure with hypoxia in the past, left bundle branch block, chronic left-sided chest pain, chronic left-sided abdominal pain, diagnosis of dementia but without treatment with standard anticholinesterase medications or Namenda and possibly covered by some depression, history of DVT and apparently pulmonary embolism requiring chronic Eliquis, moderately severe protein calorie malnutrition, subclavian artery stenosis, history of gastrointestinal bleeding, dyslipidemia, mild mitral mora nosis, mild aortic stenosis, but no clear documented atrial fibrillation, and a splenic infarction After admission she had a CT scan of the head which showed some leukoencephalopathy of chronic type but no acute regional infarction, and CT angiography showed only an extracranial arterial stenosis involving the external carotid artery and nothing intracranial or involving the internal carotid rm lucrecia. Basic laboratory studies were unremarkable with exception of low-grade elevation of creatinine which appears to be stable and elevated hemoglobin A1c Echocardiographic studies have been done and MRI is pending I have not seen reports of understanding. She is going to be monitored for potential atrial arrhythmias Review of systems from the patient is unreliable as otherwise recorded in the chart Family history and social history are as recorded on the admitting history and physical and will not be reviewed here Home medications include amlodipine Eliquis, Coreg, Lasix, Isordil, pant oprazole, potassium, Seroquel, refresh optic, docusate and simethicone Allergies include penicillins quinolones and aspirin which causes burning in her stomach and possibly a GI bleed in the past Exam currently reveals blood pressure 171/62 pulse 77 respiration of 20 she is afebrile with an O2 saturation of 96% on room air She is sitting in a wheelchair somewhat agitated complaining about her lack of nutrition and the fact that her watch cannot be found. She is oriented to the place but vague about time and seems to recall having been here previously last month. She is very vague about her symptoms admits that there may have been some problems with her speech but she now feels back to normal and denied any motor weakness Gross neurologic examination within the limits of the situation revealed no obvious cranial nerve deficits, no extraocular movement defects no visual field defects normal facial tone and strength and fairly clear speech For accident and there was no definable articulatory disturbance and I could not registered radiographer the presence or absence of an aphasia due to very limited conversation but her word choices appear to be appropriate and I did not detect any neologisms or paraphasias. There is no abnormal involuntary motor movements at least to my observation but the diagnosis of abnormal involuntary movements is listed in the chart. He has no gross drift or pronation signs seem to move all extremities reasonably well allowing for the situation but more detailed strength testing and sensory examinations were not possible History certainly could support a transient ischemic event but garbled speech unfortunately has very limited localization value and could be due to a brainstem event or an event involving either hemisphere. There is some history about gait instability after awakening in the morning but this too is nonspecific unless it was a definite hemiparesis and this is not described I agree we need an MRI scan to make sure there was not a shower of emboli or small completed stroke and monitoring for potential atrial fibrillation and we need to review the echocardiogram Certainly adding an antiplatelet agent with nongastric irritation properties such as Plavix might be an option here and certainly if there is evidence for a completed stroke this would be quite reasonable but right now we need to review all the diagnostic studies and make a decision based on those results I will check back with her tomorrow Galileo Parra MD The above note was generated utilizing voice recognition technology and may have spelling errors punctuation errors pronoun usage errors and syntax errors
--- NOTE | 2021-05-23 12:52 | Magnetic Resonance Report ---
MRI OF THE BRAIN WITHOUT IV CONTRAST CLINICAL HISTORY: Strokelike symptoms. COMPARISON STUDY: CT of the brain dated 05/22/2021. TECHNIQUE: MRI of the brain was performed utilizing various T1 and T2-weighted sequences in the axial , sagittal, and coronal planes. IV contrast was not administered for this examination. FINDINGS: Brain parenchyma: There is a subcentimeter focus of restricted diffusion identified in the left centr um semiovale on image #15 consistent with an acute to subacute lacunar infarct. No additional foci of restricted diffusion are identified. There is age-related involutional change noting mild subcortica l and periventricular microangiopathic disease. Tiny chronic lacunar infarcts are noted in both cereb ellar hemispheres. There is no hemorrhage or mass effect. No extra-axial fluid collection is seen. Th e cerebellar tonsils are normal in configuration. Ventricles, sulci, and cisterns: Prominent secondary to involutional change. Pituitary and sella: Partially empty sella is incidentally noted. Intracranial vasculature: Normal flow voids are maintained at the skull base. Orbits: The bony orbits are grossly intact. Orbital contents are normal in appearance noting bilatera l ocular lens implants. Sinuses and mastoids: Clear. Calvarium: Unremarkable. Cervical cord: Partially visualized cervical spinal cord is normal in morphology and signal intensity . IMPRESSION: 1. There is an acute to subacute subcentimeter lacunar infarct in the left centrum semiovale. 2. No additional foci of acute ischemia are identified. 3. There is no hemorrhage or mass effect. ACT 112: Negative or not required by law. Electronically signed by: Abran Chu M.D. 05/23/2021 12:51 PM
[2021-05-23] MEDS: POTASSIUM CHLORIDE 20 MEQ/15 ML UDC PO SCH ×2 (13:33→20:58)
--- NOTE | 2021-05-23 15:15 | 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 Note ---
Date of Service: May 23, 2021 I reviewed the MRI scan and echocardiogram The MRI shows a new deep left hemispheric infarction which could explain the presentation with altered speech and perhaps a degree of right-sided weakness if this was indeed transiently present. The echo shows reduced ejection fraction and severe mitral and aortic valvular calcification and insufficiency. To my knowledge atrial fibrillation has not been detected I would recommend adding Plavix in this situation. There is a history of aspirin intolerance with GI bleeding and Plavix is more likely to be tolerated. There are multiple potential sources of platelet fibrin emboli. There is also underlying small vessel disease which is unlikely to respond to Eliquis so we have at least two arguments for adding at least single antiplatelet agent. I would recommend this to be continued indefinitely I will check back with her tomorrow but for now have no further recommendations. I think doing an outpatient ZIO monitoring is academic as she is going to be on Eliquis for the foreseeable future in combination with Plavix and the presence or absence of atrial fibrillation is thus of little significance at least in determining a fdc anticaogulation program Galileo Parra MD
[2021-05-23] MEDS: ASPIRIN 81 MG ECTAB PO SCH ×2 (16:07→16:10)
[2021-05-23] MEDS: amLODIPine BESYLATE 5 MG TAB PO SCH (20:58)
[2021-05-23] MEDS: ACETAMINOPHEN 325 MG TAB PO PRN (21:00)
[2021-05-23] MEDS ORDERED: HYDROmorphone INJ 0.5 MG/0.5 ML SYR IV STA (21:24)
[2021-05-24 06:12] LABS: Hemoglobin 8.9 g/dL (12.0-16.0); Mean Corpuscular Hemoglobin 20.7 pg (25-34); Mean Corpuscular Hgb Conc 30.7 g/dL (32-36); Mean Corpuscular Volume 67.6 fL (80-100); Mean Platelet Volume 8.5 fL (7.4-10.4); Platelet Count 297 K/uL (130-400); RDW Coefficient of Variation 21.7 % (11.5-14.5); RDW Standard Deviation 53.7 fL (36.4-46.3); Red Blood Count 4.29 M/uL (4.2-5.4); White Blood Count 7.53 K/uL (4.8-10.8)
[2021-05-24] MEDS: ISOSORBIDE DINITRATE 20 MG TAB PO SCH ×2 (06:39→12:37)
[2021-05-24 06:43] LABS: BUN Creatinine Ratio 18.1 (10-20); Calcium 8.7 mg/dl (8.5-10.1); Creatinine Clr Calc Pharmacy 14.8 ml/min; Est GFR (African American) 24.4 ml/min; Est GFR (Non-African American) 21.1 ml/min; Potassium 4.1 mmol/L (3.5-5.1)
--- NOTE | 2021-05-24 07:41 | Electrocardiogram Report ---
Test Reason : Blood Pressure : / mmHG Vent. Rate : 084 BPM Atrial Rate : 084 BPM P-R Int : 156 ms QRS Dur : 158 ms QT Int : 450 ms P-R-T Axes : 079 -30 118 degrees QTc Int : 531 ms Normal sinus rhythm Possible Left atrial enlargement Left axis deviation Left bundle branch block Abnormal ECG When compared with ECG of 22-MAY-2021 14:22, No significant change was found Confirmed by Caleb Sauer ([id number]) on 05/24/2021 7:40:52 AM Referred By: REFERRED SELF Confirmed By:Eliezer Sauer
[2021-05-24] MEDS: INSULIN ASPART PER UNIT SC SCH ×2 (08:34→12:21)
[2021-05-24] MEDS: POTASSIUM CHLORIDE 10 MEQ TABCR PO SCH (08:35)
[2021-05-24] MEDS: QUEtiapine FUMARATE 25 MG TABLET PO SCH (08:35)
[2021-05-24] MEDS: carvediloL 6.25 MG TAB PO SCH (08:36)
[2021-05-24] MEDS: DOCUSATE SODIUM/SENNA 50/8.6MG TAB PO SCH (08:36)
[2021-05-24] MEDS: PANTOprazole 40 MG TAB PO SCH (08:36)
[2021-05-24] MEDS: ATORVASTATIN 40 MG TAB PO SCH (08:36)
[2021-05-24] MEDS: APIXABAN 2.5 MG TAB PO SCH (08:36)
[2021-05-24] MEDS: FUROSEMIDE 40 MG TAB PO SCH (08:36)
[2021-05-24] MEDS: POTASSIUM CHLORIDE 20 MEQ/15 ML UDC PO SCH (08:37)
[2021-05-24] MEDS ORDERED: CLOPIDOGREL BISULFATE 75 MG TAB PO SCH (09:00)
--- NOTE | 2021-05-24 09:57 | Discharge Summary ---
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 Further history obtained from patient's daughter. Reports patient woke up later today than usual around 9:00AM, as she was seen at [facility] ER and was tired from not going to bed at her normal time. Reports patient was at baseline and took her morning medication. Around noon today she told her daughter that she didn't "feel right". Daughter states got patient up off recliner and she was stumbling. Reports that patient then started to mumble and couldn't make out her words so she called EMS. Denies any known fall. Patient uses walker at home. Currently in ER patient still with mumbled speech. She denies fever/chills, dysphagia, SANON, dizziness, vision changes, extremity weakness, CP, SOB, N/V/D. Does report some right shoulder discomfort with movement of her right arm. Patient with history hospitalization 04/26/2021-05/03/2021 for Chest pain, headache, Acute hypoxic respiratory failure, Pleural effusion, hypertensive urgency, AMARIS. During that admission BP had improved and Hydralazine discontinued. Spironolactone was discontinued secondary to AMARIS however renal functions improved and Lasix was resumed. History ER visit 05/18/21: abdominal pain with unremarkable workup. ER visit on 05/20/21: CP with unremarkable workup. ER visit on 05/21/21: back pain with L- spine CT showed degenerative changes and no acute fracture. In past patient had been on hospice however is no longer on as her condition is stable per daughter. Admission Exam Per Admitting Provider General: no distress, WDWN Head: normocephalic, atraumatic Eyes: PERRL, EOM's intact, conjunctiva non-injected, anicteric ENT: normal inspection external ears, nose, mucous membranes moist Neck: supple, trachea midline, non-tender Lungs: clear, no respiratory distress, no wheezing/rhonchi/rales CV: RRR, no murmur, no JVD, no pretibial edema Abd: normal BS, soft, non-tender Ext: no cyanosis, no calf tenderness Neuro: A&O x 3, no focal deficits noted, normal affect Skin: warm, dry Principal Diagnosis Lacunar CVA/stroke HTN CKD IV DM II History PE History splenic infarct Chronic anticoagulation: Dementia Discharge Exam See below Discharge Data Allergies Allergy/AdvReac Type Severity Reaction Status Date / Time Penicillins Allergy Intermediate Rash Verified 05/22/21 15:27 Quinolones Allergy Intermediate Rash Verified 05/22/21 15:27 aspirin AdvReac Mild burning in Verified 05/22/21 15:27 stomach Consultations 05/22/21 16:40 ED Decision to Admit Stat 05/22/21 21:48 Consult Neurology Routine 05/23/21 11:34 Consult Neurology Routine Ordered Studies 05/22/21 13:39 CT head/brain wo con Stat 05/22/21 13:48 CT angio head w con Stat CT angio neck with con Stat 05/23/21 11:34 MR brain wo con Routine Current Diagnoses Unspecified symptoms and signs involving the nervous system (05/22/21) Allergies Penicillins Allergy (Intermediate, Verified 05/22/21 15:27) Rash Quinolones Allergy (Intermediate, Verified 05/22/21 15:27) Rash aspirin Adverse Reaction (Mild, Verified 05/22/21 15:27) burning in stomach Height/Weight/Isolation Height 5 ft 2 in Weight 54.3 kg Chemistry 05/22/21 05/23/21 05/24/21 15:14 06:47 05:50 Sodium 135 L 133 L 133 L Potassium 3.4 L 3.4 L 4.1 D Chloride 104 104 107 Carbon Dioxide 23 23 24 Anion Gap 8 6 2 L BUN 37 H 32 H 37 H Creatinine 1.79 H 1.65 H 2.04 H D Glucose 90 116 H 122 H Urinalysis 05/22/21 Unknown Urine Color Yellow Urine Appearance Clear Urine pH 5.0 Ur Specific Wallace 1.014 Urine Protein 2+ H Urine Glucose (UA) Negative Urine Ketones Negative Urine Blood Negative Urine Nitrite Negative Urine Bilirubin Negative Microbiology 05/22/21 Unknown Urine,Clean Catch Urine Culture - Preliminary No growth - Less than 1,000 colonies/mL, Final report to follow. Hospital Course (1) Stroke-like symptoms: Patient is 89-year-old female with PMH HTN, COPD, CHF, CKD IV, GERD, history of PE, splenic infarct now on chronic Eliquis, insomnia presented to ER for complaint of mumbled speech starting around noon on 05/22. Patient ruled in with an acute to subacute lacunar CVAshe was started on Plavix and we will continue the Eliquis and discharged home today, patient wants to go home she does not want to go to rehab and family okay with taking home today. In ER patient afebrile, hypertensive with BP: 207/72 CT head: There is no hemorrhage, mass effect, or evidence of acute territorial ischemia by CT criteria. CTA Head: Negative CT angiogram of the brain with contrast. CTA Neck: Neg 1. 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 2. Otherwise unremarkable CT angiogram of the neck. 3. Intralobular septal thickening is noted throughout the upper lobes. This could be seen with acute versus chronic congestive change and clinical correlation will be required. MRIpositive for lacunar CVA subacute to acute Stroke -lipids -A1C in 04/2021 was 6.9 -echo no PFO EF 35-40% -aspiration precautions -PT/OT -statin -continue Eliquis. Plavix added -allow permissive HTN currently, however anticipate will need to adjust BP meds for improved BP control -neurology in the office Chronic diastolic CHF Appears euvolemic -Continue lasix HTN BP elevated secondary to acute CVA Prior admission in 04/21-05/23 had HTN urgency with BP med adjustment however BP had improved and Hydralazine dc and Spironolactone was discontinued secondary to AMARIS -Continue amlodipine, carvedilol, lasix, isosorbide -May require further BP med adjustment outpatient CKD IV Baseline Cr: ~1.8 -Monitor renal functions and avoid nephrotoxic agents when possible DM II A1c: 6.9 in 04/2021 Diet controlled Novolog sliding scale per protocol History PE History splenic infarct Chronic anticoagulation: -Continue Eliquis Dementia -Continue Seroquel DVT Prophylaxis -On Eliquis DNR/DNI as per discussion with pt Follows with Dr Melgoza for routine care DC home with daughter ROS-No Headache, No Visual Changes, No Nausea, No Vomiting, No Fever, No Chills, No Neck Pain or Stiffness, No Chest Pain, No Palpitations, No SOB, No HODGE, No Cough, No Sputum, No Wheezing, No Abdominal Pain, No Diarrhea, No Hematemesis, No Hemoptysis, No Unexpected Weight Loss, No Flank pain, No Melena, No Hematochezia, No Frequency, No Urgency, No Burning, No Hematuria, No Rashes, No Diaphoresis. Appetite is Normal Physical Exam Gen-AAO x 3, NAD, Afebrile, pleasant, mild dementia Head-NCAT, EOMI, PERRLA, Anicteric Sclera, No Posterior Pharyngeal Erythema Neck-Supple, No JVD, No Thyromegaly, No Masses, No LAD, No Bruits Lungs-Clear to Auscultation Bilaterally, No Rales, No Rhonchi, No Wheezing, No Crepitus Chest-No S4, +S1, +S2, No S3, No Murmurs, No Rubs, No Gallops, No Ectopy Abdomen-Soft, Bowel Sounds Present, Non Tender, Non Distended, No Hepatomegaly, No Splenomegaly, No Palpable Masses, No Rebound, No Rigidity, No Guarding Musculoskeletal-Full Range of Motion Bilaterally, No CVAT Extremities-No Cyanosis, No Clubbing, No Edema Nuero-Cranial Nerves II-XII grossly intact, Motor WNL, DTRs WNL, Strength WNL, Non Focal Psych-Normal Mood Total Time Total Time Spent Total Time Spent (In Minutes): 45 mins Discharge Plan Discharge Items Patient Disposition: Home - Self-Care Reason For Visit: STROKE LIKE SYMPTOMS Discharge Diagnosis: Lacunar CVA/stroke HTN CKD IV DM II History PE History splenic infarct Chronic anticoagulation: Dementia Condition on Discharge: Good Activity: Resume your previous activity Lifting: Gradually increase as tolerated Bathing: No limitations Exercise/Sports: Gradually increase as tolerated Weightbearing: Full weightbearing Non-emergency contact: Primary Care Provider and Neurologist Call non-emergency contact if: you have any medication questions Follow-up/Referrals: Markel Melgoza MD [Primary Care Provider] - Galileo Parra MD [Physician] - (Call for first opening) Diet: Carb Consistent or DM2 and Heart Healthy Addtl Attending Provider Instructions: None Pending Studies at Discharge: No Stand-Alone Forms: [employer], Smoking Cessation Medications and DC Order Prescriptions: New atorvastatin 40 mg Tablet 40 mg PO QAM Qty: 30 RF: 0 clopidogrel 75 mg Tablet 75 mg PO QAM Qty: 30 RF: 0 Continued sennosides-docusate sodium [Senna with Docusate Sodium] 8.6-50 mg Tablet 2 tab-cap PO DAILY RF: 0 carvedilol [Coreg] 6.25 mg tablet 6.25 mg PO BID RF: 0 quetiapine [Seroquel] 25 mg tablet 12.5 mg PO BID RF: 0 simethicone 125 mg tablet,chewable 125 mg PO QID PRN (Reason: Gas) RF: 0 Refresh Optive 0.5-0.9 % Drops 1 drp OPHTHALMIC (EYE) QID PRN (Reason: Dry Eye(S)) RF: 0 pantoprazole 40 mg Tablet,Delayed Release (Dr/Ec) 40 mg PO DAILY RF: 0 apixaban 2.5 mg Tablet 2.5 mg PO BID RF: 0 amlodipine [Norvasc] 5 mg Tablet 5 mg PO HS Qty: 30 RF: 0 furosemide [Lasix] 40 mg tablet 40 mg PO DAILY Qty: 30 RF: 0 potassium chloride 10 mEq capsule, extended release 10 meq PO BID RF: 0 isosorbide dinitrate 20 mg tablet 20 mg PO TID RF: 0 Discharge Orders: Discharge Order (Routine); Ordered 05/24/21 Ordered By: Rg Sanz/Other Patient Handouts: Stroke and Heart Disease, Stroke Prevention For Caregiver Admission Data Admit Date/Time: 05/22/21 17:03 Attending Provider: Rg Galarza Admit Provider: Rg Galarza Primary Care Provider: Markel Melgoza Other Providers: gR Galarza ; Galileo Parra
[2021-05-24] MEDS ORDERED: STROKE PATIENT DISCHARGE STA ×2 (10:00→15:18)
--- NOTE | 2021-05-24 10:51 | Pharmacy Report ---
Pharmacist Stroke Counseling - Date of Service May 24, 2021 - Scope: Pharmacy has been consulted to provide medication discharge counseling for this patient admitted with stroke as per the Pharmacist Discharge Counseling for Stroke Patients Protocol. - Medications on Discharge: Home Medications Medication Instructions Recorded Confirmed sennosides 8.6 mg-docusate sodium 2 tab-cap PO DAILY 09/06/20 05/22/21 50 mg tablet (Senna with Docusate Sodium) carboxymethylcellulose 0.5 1 drp OPHTHALMIC (EYE) QID PRN 02/13/21 05/22/21 %-glycerin 0.9 % eye drops (Refresh Optive) carvedilol 6.25 mg tablet (Coreg) 6.25 mg PO BID 02/13/21 05/22/21 quetiapine 25 mg tablet (Seroquel) 12.5 mg PO BID 02/13/21 05/22/21 simethicone 125 mg chewable tablet 125 mg PO QID PRN 02/13/21 05/22/21 pantoprazole 40 mg tablet,delayed 40 mg PO DAILY 04/26/21 05/22/21 release apixaban 2.5 mg tablet 2.5 mg PO BID 05/03/21 05/22/21 potassium chloride 10 mEq 10 meq PO BID 05/21/21 05/22/21 capsule,extended release isosorbide dinitrate 20 mg tablet 20 mg PO TID 05/22/21 05/22/21 New Rx's Medication Instructions Recorded amlodipine 5 mg tablet (Norvasc) 5 mg PO HS #30 tab 05/03/21 furosemide 40 mg tablet (Lasix) 40 mg PO DAILY #30 tab 05/03/21 atorvastatin 40 mg tablet 40 mg PO QAM #30 tab 05/24/21 clopidogrel 75 mg tablet 75 mg PO QAM #30 tab 05/24/21 - Action: The above medications, specifically ones for stroke treatment/prophylaxis, have been reviewed in detail with the patient and/or patient malt liquors sales representative(s) prior to discharge. This includes indication, common adverse reactions, drug interactions, and medication administration. Medication counseling has been employed using the teach-back method to ensure understanding. - Outcome: The patient and/or patient malt liquors sales representative(s) have demonstrated understanding of the medications. Thank you for allowing pharmacy to be involved in the care of this patient. Please call [phone] with any additional questions
[2021-05-24] MEDS: ACETAMINOPHEN 325 MG TAB PO PRN (11:27)
--- NOTE | 2021-05-24 11:27 | 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 Note ---
Date of Service: May 24, 2021 I saw Mrs. Higuera today at her bedside with her daughter who feels that she is back to her baseline and today did not really describe much in the way of her right-sided weakness at the time she presented with the slurred speech. Exam shows her to be awake and alert there are no cranial neuropathies facial asymmetry no drift or pronation sign so the small deep left hemispheric infarction that we see on MRI probably is not producing much in the way of clinical manifestations My recommendations remain to add Plavix to her current Eliquis and continue this indefinitely she does have a number of potential sources of platelet fibrin embolization from her calcified mitral and aortic valves, has a low ejection fraction, and has on MRI evidence for small vessel disease all of which would probably respond to the addition of antiplatelet agents Neurology really does not need to see her in follow-up at this point if she is back to baseline. We will be happy to evaluate her however if her primary care physician would feel this is necessary. We are not going to change recommendations at this point about continuing the Plavix unless it would be b leeding issues at which point of course then at least the Plavix would have to be discontinued Galileo Parra MD
[2021-05-24] MEDS ORDERED: ASPIRIN 81 MG CHEW PO STA (12:06)
--- NOTE | 2021-05-24 13:08 | XRay Report ---
XR chest 1V portable CLINICAL HISTORY: Atypical chest pain TECHNIQUE: Single frontal radiograph of the chest was obtained. Comparison: Comparison is made to chest one view 05/20/2021 FINDINGS: No lines and tubes are seen. Calcified aortic knob is seen. Lungs are underinflated but clear. No lalito dence of pleural effusion or pneumothorax. IMPRESSION: No acute chest disease. ACT 112: Negative or not required by law. Electronically signed by: Petar yS M.D. 05/24/2021 1:06 PM
--- NOTE | 2021-05-24 14:04 | Cardiology Consultation ---
Date of Consultation May 24, 2021 Assessment & Plan (1) Elevated troponin: (2) LBBB (left bundle branch block): (3) Left-sided chest pain: (4) Hypertension: (5) Stroke: (6) Hypertensive urgency: Patient is an extremely complex 89-year-old female with multiple underlying issues as outlined above. She presented this admission after multiple ER visits and a prior hospitalization with combination of various complaints. This admission she presented with signs and symptoms of a deep left-sided stroke with transient dysarthria. She is referred now for symptoms of chest pain though patient unable to recall complaints. Now issues are history of headache and back discomfort on disc ussion. Troponins have been elevated on testing after admission. Echocardiogram demonstrates similar findings with slight decline in overall LV systolic function in comparison to prior echoes, chronic valvular disease and pulmonary hypertension Will be conservative medical therapy given underlying issues Patient already on anticoagulation and antiplatelet therapy, beta-bang and low-dose nitrates. Past use of CRISTAL inhibitor resulted in renal decline Plan: Increase isosorbide dinitrate to 40 mg 3 times daily. No other plans for further intervention or therapies. Overall prognosis remains limited History of Present Illness Reason for Consultation: Elevated troponin Requesting Physician: Dr. Jimenez Attending Physician: Rg Galarza DO History of Present Illness Patient is an 89-year-old female with underlying medical issues as outlined in patient history. Review of records reveals multiple ER visits and recent hospitalization for symptoms of headache, hypertensive urgency, chest pain, back pain. She has underlying history of labile hypertension chronic left bundle branch block, valvular heart disease, mild to moderate left ventricular dysfunction, past possible embolic disease, peripheral vascular disease with subclavian stenosis in addition other diagnoses as below. Patient was admitted this admission after several ER visits with back abdominal and chest discomfort. Current admission patient presented with change in mental status and speech with evidence of a small stroke. Symptoms per report improved. Patient during stay in admitted to chronic chest discomfort and serial enzymes were performed demonstrated elevated troponin. Patient currently denies any chest pain or headache. Has multiple somatic complaints current main issue is an itching back. Patient has relatively little recollection of recent and past events and is poor historian Currently denies shortness of breath tachypalpitations dizziness or lightheadedness. Blood pressures have been elevated since admission. She is currently anticoagulated and on antiplatelet therapy. Echocardiogram reviewed as below EKG unhelpful given presence of chronic left bundle branch block No signs of congestive heart failure, no arrhythmias on telemetry Allergies Allergy/AdvReac Type Severity Reaction Status Date / Time Penicillins Allergy Intermediate Rash Verified 05/22/21 15:27 Quinolones Allergy Intermediate Rash Verified 05/22/21 15:27 aspirin AdvReac Mild burning in Verified 05/22/21 15:27 stomach Home Medications Medication Instructions Recorded Confirmed Type sennosides 8.6 mg-docusate sodium 2 tab-cap PO DAILY 09/06/20 05/22/21 History 50 mg tablet (Senna with Docusate Sodium) carboxymethylcellulose 0.5 1 drp OPHTHALMIC (EYE) QID PRN 02/13/21 05/22/21 History %-glycerin 0.9 % eye drops (Refresh Optive) carvedilol 6.25 mg tablet (Coreg) 6.25 mg PO BID 02/13/21 05/22/21 History quetiapine 25 mg tablet (Seroquel) 12.5 mg PO BID 02/13/21 05/22/21 History simethicone 125 mg chewable tablet 125 mg PO QID PRN 02/13/21 05/22/21 History pantoprazole 40 mg tablet,delayed 40 mg PO DAILY 04/26/21 05/22/21 History release amlodipine 5 mg tablet (Norvasc) 5 mg PO HS #30 tab 05/03/21 05/22/21 Rx apixaban 2.5 mg tablet 2.5 mg PO BID 05/03/21 05/22/21 History furosemide 40 mg tablet (Lasix) 40 mg PO DAILY #30 tab 05/03/21 05/22/21 Rx potassium chloride 10 mEq 10 meq PO BID 05/21/21 05/22/21 History capsule,extended release isosorbide dinitrate 20 mg tablet 20 mg PO TID 05/22/21 05/22/21 History atorvastatin 40 mg tablet 40 mg PO QAM #30 tab 05/24/21 Rx clopidogrel 75 mg tablet 75 mg PO QAM #30 tab 05/24/21 Rx Patient History Medical History Atrophy of left kidney Chest pain CHF due to valvular disease Coronary artery disease DM type 2 (diabetes mellitus, type 2) Do not resuscitate status Dyslipidemia Goals of care, counseling/discussion LBBB (left bundle branch block) Mild aortic stenosis Mild mitral stenosis Mitral regurgitation Nephrotic syndrome Palliative care encounter Severe protein-calorie malnutrition Subclavian arterial stenosis Weakness Surgical History H/O repair of left rotator cuff H/O varicose vein stripping History of appendectomy History of hysterectomy History of stent insertion of renal artery R renal artery; [facility] Family History Other COPD (chronic obstructive pulmonary disease) Cancer Diabetes Hypertension Stroke Denies family history of Kidney disease Social History Smoking Status: Former smoker Tobacco Type: Cigarettes Second Hand Exposure: No; Do You Dip or Chew Tobacco: No; Hx Alcohol Use: No Hx Substance Use: No Preferred Language: Ivorian 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 Ability: Impaired Band Sawyer Required: No Beliefs That Will Affect Care: None marital status: Single Current Living Situation: Family Current Living Situation Comment: lives w/ dtr How many Children do You have: 1 Other Information That Helps Us Care for You: No Feels Safe at Home: Yes Safety Concerns: Feels Safe At This Time Assistive Devices: Walker Assistive Devices Comment: 2 Review of Systems Review of Systems: Unobtainable due to cognitive status Physical Exam Constitutional: + frail appearing; no acute distress Eyes: PERRL, conjunctivae normal, anicteric sclerae ENMT: external ear and nose normal, oropharynx normal Neck: trachea midline, no thyromegaly Respiratory: Few basilar crackles with mildly diminished breath sounds but otherwise clear Cardiovascular: Rate/Rhythm: regular rate and regular rhythm Heart Sounds: + murmur (Grade 2 or 6 systolic murmur right upper sternal border, no diastolic ) Vessels: no JVD Extremities: no edema Chest (Breasts): Additional Comments: Mild back and chest tenderness on palpation Gastrointestinal (Abdomen): normal bowel sounds, soft, nontender, no hepatos plenomegaly Musculoskeletal: Head/Neck/Chest: normocephalic and head atraumatic Psychiatric: Orientation: cooperative Results & Data ([facility]) Vital Signs (Past 12 Hours) Vital Signs Temp Pulse Pulse Resp BP BP Pulse Ox 05/24/21 12:21 36.9 C 76 20 189/91 H 98 05/24/21 10:14 37.0 C 77 16 97 05/24/21 08:38 177/77 H 05/24/21 08:17 37.0 C 77 16 185/78 H 190/67 H 97 05/24/21 08:00 73 05/24/21 03:00 36.4 C L 67 16 172/62 H 97 Laboratory Results Laboratory Results - last 24 hr 05/23/21 05/23/21 05/24/21 16:23 20:34 05:50 WBC 7.53 RBC 4.29 Hgb 8.9 L Hct 29.0 L MCV 67.6 L MCH 20.7 L MCHC 30.7 L RDW Std Deviation 53.7 H RDW Coeff of Dion 21.7 H Plt Count 297 MPV 8.5 Sodium Potassium Chloride Carbon Dioxide Anion Gap BUN Creatinine Est Cr Clr Drug Dosing Est GFR ( Amer) Est GFR (Non-Af Amer) BUN/Creatinine Ratio Glucose POC Glucose 205 H 101 H Calcium Troponin I 05/24/21 05/24/21 05/24/21 05:50 07:26 11:16 WBC RBC Hgb Hct MCV MCH MCHC RDW Std Deviation RDW Coeff of Dion Plt Count MPV Sodium 133 L Potassium 4.1 D Chloride 107 Carbon Dioxide 24 Anion Gap 2 L BUN 37 H Creatinine 2.04 H D Est Cr Clr Drug Dosing 14.8 Est GFR ( Amer) 24.4 Est GFR (Non-Af Amer) 21.1 BUN/Creatinine Ratio 18.1 Glucose 122 H POC Glucose 128 H 171 H Calcium 8.7 Troponin I 05/24/21 12:12 WBC RBC Hgb Hct MCV MCH MCHC RDW Std Deviation RDW Coeff of Dion Plt Count MPV Sodium Potassium Chloride Carbon Dioxide Anion Gap BUN Creatinine Est Cr Clr Drug Dosing Est GFR ( Amer) Est GFR (Non-Af Amer) BUN/Creatinine Ratio Glucose POC Glucose Calcium Troponin I 7.19 H* Diagnostic Findings Echocardiogram 05/23/2021 by my review Left-ventricular cavity small with severe left-ventricular perjury V Aortic valve calcified with mild restriction leaflet mobility and mild to moderate aortic insufficiency Heavily calcified mitral valve with moderate to severe mitral insufficiency and an eccentric posterior jet Mild tricuspid insufficiency with elevated pulmonary pressures Mild to moderate global hypokinesis of the left ventricle with septal abnormalities consistent with left bundle branch block EF 40% ECG Additional Comments: EKG normal sinus rhythm at 76 bpm with left bundle branch block unchanged (1) Hypertension Hypertension type: primary hypertension Qualified Code(s): I10 - Essential (primary) hypertension
[2021-05-24] MEDS ORDERED: ISOSORBIDE DINITRATE 40 MG TAB PO SCH (17:00)
--- NOTE | 2021-05-24 20:27 | Electrocardiogram Report ---
Test Reason : Blood Pressure : / mmHG Vent. Rate : 076 BPM Atrial Rate : 076 BPM P-R Int : 160 ms QRS Dur : 156 ms QT Int : 460 ms P-R-T Axes : 069 023 134 degrees QTc Int : 517 ms Normal sinus rhythm Left bundle branch block Abnormal ECG When compared with ECG of 23-MAY-2021 00:51, No significant change was found Confirmed by Caleb Sauer ([id number]) on 05/24/2021 8:27:14 PM Referred By: REFERRED SELF Confirmed By:Eliezer Sauer
== END 2021-05-24 16:10 | disposition home health service (06) | DRG 65 ==
LOC: ED 13:44 → EDINP 17:03 → 2N 20:47

== ENCOUNTER 2021-06-11 19:37 | Observation (INO) ==
[2021-06-11] MEDS ORDERED: ALBUT/IPRATROP 3MG/0.5MG NEB 3 ML VIAL NEB ONE (20:34)
[2021-06-11] MEDS ORDERED: ERTAPENEM SODIUM 10 ML IV STA (20:35)
[2021-06-11] MEDS ORDERED: FUROSEMIDE 40 MG/4 ML VIAL IV ONE (20:37)
[2021-06-11] MEDS ORDERED: hydrALAZINE HCL 20 MG/ML VIAL IV STA (20:37)
[2021-06-11] MEDS ORDERED: NITROGLYCERIN 2% OINTMENT 30GM TUBE EXT ONE (20:38)
--- NOTE | 2021-06-11 20:44 | Emergency Department Note ---
History of Present Illness General Chief complaint: Shortness of Breath/Dyspnea Stated complaint: LOWER BACK PAIN/LT. CHEST PAIN Time Seen by Provider: 06/11/21 20:30 History of Present Illness Maximum Pain Intensity: 5 89-year-old female presents to the ED with a chief complaint of shortness of breath. The patient states that her symptoms started earlier today. She denies any cough or sick contacts. She states that she lives with her daughter. Reviewing her records, she does have a history of congestive heart failure. She is on diuretics. She states that her breathing has progressively gotten more difficult to breathe. She also reported to some left-sided chest pain to [facility] staff. She does not use home oxygen. Her oxygen saturations were in the mid 80s for EMS. She is chronically on apixaban. The patient was agreeable to endotracheal intubation if her symptoms worsen. Home Medications Medication Instructions Recorded Confirmed Type sennosides 8.6 mg-docusate sodium 2 tab-cap PO DAILY 09/06/20 06/11/21 History 50 mg tablet (Senna with Docusate Sodium) carboxymethylcellulose 0.5 1 drp OPHTHALMIC (EYE) QID PRN 02/13/21 06/11/21 History %-glycerin 0.9 % eye drops (Refresh Optive) carvedilol 6.25 mg tablet (Coreg) 6.25 mg PO BID 02/13/21 06/11/21 History quetiapine 25 mg tablet (Seroquel) 12.5 mg PO BID 02/13/21 06/11/21 History simethicone 125 mg chewable tablet 125 mg PO QID PRN 02/13/21 06/11/21 History pantoprazole 40 mg tablet,delayed 40 mg PO DAILY 04/26/21 06/11/21 History release amlodipine 5 mg tablet (Norvasc) 5 mg PO HS #30 tab 05/03/21 06/11/21 Rx apixaban 2.5 mg tablet 2.5 mg PO BID 05/03/21 06/11/21 History furosemide 40 mg tablet (Lasix) 40 mg PO DAILY #30 tab 05/03/21 06/11/21 Rx potassium chloride 10 mEq 10 meq PO BID 05/21/21 06/11/21 History capsule,extended release isosorbide dinitrate 20 mg tablet 20 mg PO TID 05/22/21 06/11/21 History atorvastatin 40 mg tablet 40 mg PO QAM #30 tab 05/24/21 06/11/21 Rx clopidogrel 75 mg tablet 75 mg PO QAM #30 tab 05/24/21 06/11/21 Rx isosorbide dinitrate 40 mg tablet 40 mg PO TID@0700,1200,1700 #90 tab 05/24/21 06/11/21 Rx (Isordil) Allergies Allergy/AdvReac Type Severity Reaction Status Date / Time Penicillins Allergy Intermediate Rash Verified 06/11/21 20:02 Quinolones Allergy Intermediate Rash Verified 06/11/21 20:02 aspirin AdvReac Mild burning in Verified 06/11/21 20:02 stomach Past Med/Surg History Medical History Atrophy of left kidney Chest pain CHF due to valvular disease Coronary artery disease DM type 2 (diabetes mellitus, type 2) Do not resuscitate status Dyslipidemia Goals of care, counseling/discussion LBBB (left bundle branch block) Mild aortic stenosis Mild mitral stenosis Mitral regurgitation Nephrotic syndrome Palliative care encounter Severe protein-calorie malnutrition Subclavian arterial stenosis Weakness Surgical History H/O repair of left rotator cuff H/O varicose vein stripping History of appendectomy History of hysterectomy History of stent insertion of renal artery R renal artery; 2020 in [facility] Family History Other COPD (chronic obstructive pulmonary disease) Cancer Diabetes Hypertension Stroke Denies family history of Kidney disease Social History Smoking Status: Former smoker Tobacco Type: Cigarettes Second Hand Exposure: No; Hx Alcohol Use: No Hx Substance Use: No Preferred Language: [place]an 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 Ability: Impaired X Ray Equipment Tester Required: No Beliefs That Will Affect Care: None marital status: Single Current Living Situation: Family Current Living Situation Comment: lives w/ dtr How many Children do You have: 1 Feels Safe at Home: Yes Assistive Devices: Walker Review of Systems A total of 10 systems reviewed and were otherwise negative Physical Exam Vital Signs Vital Signs - 24 hr 06/11/21 19:20 06/11/21 19:50 06/11/21 20:48 Temperature 36.9 C 36.9 C Temperature Source Oral Oral Pulse Rate 107 H 95 H Pulse Rate [Finger] 118 H Respiratory Rate 27 H 26 H 19 Respiratory Effort / Characteristics Spontaneous Retracting Short of Breath Respiratory Depth Normal Blood Pressure 202/155 H Blood Pressure [Right Arm] 202/155 H Blood Pressure Mean 170 Blood Pressure Mean [Right Arm] 170 Pulse Oximetry 95 93 96 Oxygen Delivery Method Oxymask Nasal Cannula Oxygen Flow Rate 6 6 Fraction of Inspired Oxygen 35 Sepsis Recent Fever Within 48 Hours No Sepsis New/Unexplained Change in Mental Status N/A Sepsis Action Taken by Nursing No Action Required 06/11/21 21:01 Temperature Temperature Source Pulse Rate Pulse Rate [Finger] 86 Respiratory Rate 23 Respiratory Effort / Characteristics Spontaneous Short of Breath Respiratory Depth Blood Pressure Blood Pressure [Right Arm] Blood Pressure Mean Blood Pressure Mean [Right Arm] Pulse Oximetry 99 Oxygen Delivery Method BiPAP Oxygen Flow Rate Fraction of Inspired Oxygen 35 Sepsis Recent Fever Within 48 Hours Sepsis New/Unexplained Change in Mental Status Sepsis Action Taken by Nursing CONSTITUTIONAL/VITAL SIGNS: Reviewed / noted above. GENERAL: Non-toxic in appearance. INTEGUMENTARY: Warm, dry, and [place]. HEAD: Normocephalic. EYES: without scleral icterus or trauma. ENT/OROPHARYNX: clear and moist. LYMPHADENOPATHY/NECK: Is supple without lymphadenopathy or meningismus. RESPIRATORY: Rales bilaterally with expiratory wheezing. Moderate increased work of breathing. CARDIOVASCULAR: Regular rate and rhythm. GI/ABDOMEN: Soft and nontender. No organomegaly or pulsatile mass. EXTREMITIES: Warm and well perfused. BACK: No CVA tenderness. NEUROLOGICAL: Intact without focal deficits. PSYCHIATRIC: normal affect. MUSCULOSKELETAL: Normally developed with good muscle tone. TRIAGE NURSING DOCUMENTATION REVIEWED. Course Administered Medications Discontinued Medications Albuterol (Albut/Ipratrop 3mg/0.5mg Neb 3 Ml Vial) 12 ml NEB ONE ONE; Protocol Stop: 06/11/21 20:35 Last Admin: 06/11/21 20:59 Dose: 12 ml Documented by: [id number] Furosemide (Furosemide 40 Mg/4 Ml Vial) 40 mg IV ONE ONE Stop: 06/11/21 20:38 Last Admin: 06/11/21 21:15 Dose: 40 mg Documented by: [id number] Hydralazine HCl (Hydralazine Hcl 20 Mg/Ml Vial) 10 mg IV NOW STA Stop: 06/11/21 20:38 Last Admin: 06/11/21 21:17 Dose: 10 mg Documented by: [id number] Ertapenem (Invanz) 10 mls @ 2 mls/min IV NOW STA Stop: 06/11/21 20:39 Last Admin: 06/11/21 21:11 Dose: 2 mls/min Documented by: [id number] Nitroglycerin (Nitroglycerin 2% Ointment 30gm Tube) 1 inch EXT NOW ONE Stop: 06/11/21 20:39 Last Admin: 06/11/21 21:11 Dose: 1 inch Documented by: [id number] Critical Care Time Critical Care Time: Yes Total Critical Care Time: 30 I have personally spent 30 minutes of critical care time in the direct management of this patient. This includes bedside care, interpretation of diagnostic studies, and testing, discussion with consultants, patient, and family members, and other required patient management activities. This 30 minutes is in excess of all separately billable procedures. Medical Decision Making Differential Diagnosis The differential was considered includes acute myocardial infarction, acute coronary syndrome, myocarditis, pericarditis, pericardial effusions /tamponad, esophageal perforation, pulmonary embolism, pneumonia, pneumothorax, cardiomyopathy, congestive heart, anemia , COPD/asthma exacerbation. Medical Records Attestation: I reviewed the patient's medical records. Home Medications Current Medication List: was personally reviewed by me Laboratory Data Attestation: I reviewed the patient's lab results. Result diagrams: 06/11/21 20:20 06/11/21 20:20 Lab Results 06/11/21 06/11/21 06/11/21 Range/Units 20:20 20:20 20:20 WBC 16.13 H (4.8-10.8) K/uL RBC 4.56 (4.2-5.4) M/uL Hgb 9.5 L (12.0-16.0) g/dL Hct 31.5 L (37-47) % MCV 69.1 L (80-100) fL MCH 20.8 L (25-34) pg MCHC 30.2 L (32-36) g/dL RDW Std Deviation 53.7 H (36.4-46.3) fL RDW Coeff of Dion 21.3 H (11.5-14.5) % Plt Count 389 (130-400) K/uL MPV 8.8 (7.4-10.4) fL Immature Gran % (Auto) 0.2 % Neut % (Auto) 78.4 % Lymph % (Auto) 7.0 % [place] % (Auto) 12.8 % Eos % (Auto) 1.2 % Baso % (Auto) 0.4 % Neut # (Auto) 12.63 H (1.4-6.5) K/uL Lymph # (Auto) 1.13 L (1.2-3.4) K/uL [place] # (Auto) 2.07 H (0.11-0.59) K/uL Eos # (Auto) 0.20 (0-0.5) K/uL Baso # (Auto) 0.06 (0-0.2) K/uL Immature Gran # (Auto) 0.04 H (0.00-0.02) K/uL Absolute Nucleated RBC 0.03 H (0-0) K/uL Nucleated RBC % (auto) 0.2 % Hypochromasia Present Anisocytosis Present Microcytosis Present Ovalocytes 1+ PT 10.9 (9.0-12.0) Seconds INR 1.1 (0.9-1.1) APTT 25.4 (21.0-31.0) Seconds PTT Ratio 1.0 Sodium 136 (136-145) mmol/L Potassium 3.9 (3.5-5.1) mmol/L Chloride 106 (98-107) mmol/L Carbon Dioxide 19 L (21-32) mmol/L Anion Gap 11 (3-11) BUN 39 H (6-23) mg/dl Creatinine 1.96 H (0.6-1.2) mg/dl Est Cr Clr Drug Dosing 15.4 ml/min Est GFR ( Amer) 25.6 ml/min Est GFR (Non-Af Amer) 22.1 ml/min BUN/Creatinine Ratio 19.9 (10-20) Glucose 262 H (70-99(Fasting)) mg/dl Calcium 9.0 (8.5-10.1) mg/dl Magnesium 2.0 (1.7-2.4) mg/dl Total Bilirubin 0.9 (0.2-1.0) mg/dl AST 19 (13-39) U/L ALT 15 (7-52) U/L Alkaline Phosphatase 197 H (34-104) U/L Troponin I 0.06 H* (0-0.04) ng/ml Total Protein 6.8 (6.0-8.3) gm/dl Albumin 4.1 (3.4-5.0) gm/dl Globulin 2.7 (2.5-4.0) gm/dl Albumin/Globulin Ratio 1.5 (0.9-2) Procalcitonin (0-0.5) ng/ml 06/11/21 Range/Units 20:20 WBC (4.8-10.8) K/uL RBC (4.2-5.4) M/uL Hgb (12.0-16.0) g/dL Hct (37-47) % MCV (80-100) fL MCH (25-34) pg MCHC (32-36) g/dL RDW Std Deviation (36.4-46.3) fL RDW Coeff of Dion (11.5-14.5) % Plt Count (130-400) K/uL MPV (7.4-10.4) fL Immature Gran % (Auto) % Neut % (Auto) % Lymph % (Auto) % [place] % (Auto) % Eos % (Auto) % Baso % (Auto) % Neut # (Auto) (1.4-6.5) K/uL Lymph # (Auto) (1.2-3.4) K/uL [place] # (Auto) (0.11-0.59) K/uL Eos # (Auto) (0-0.5) K/uL Baso # (Auto) (0-0.2) K/uL Immature Gran # (Auto) (0.00-0.02) K/uL Absolute Nucleated RBC (0-0) K/uL Nucleated RBC % (auto) % Hypochromasia Anisocytosis Microcytosis Ovalocytes PT (9.0-12.0) Seconds INR (0.9-1.1) APTT (21.0-31.0) Seconds PTT Ratio Sodium (136-145) mmol/L Potassium (3.5-5.1) mmol/L Chloride (98-107) mmol/L Carbon Dioxide (21-32) mmol/L Anion Gap (3-11) BUN (6-23) mg/dl Creatinine (0.6-1.2) mg/dl Est Cr Clr Drug Dosing ml/min Est GFR ( Amer) ml/min Est GFR (Non-Af Amer) ml/min BUN/Creatinine Ratio (10-20) Glucose (70-99(Fasting)) mg/dl Calcium (8.5-10.1) mg/dl Magnesium (1.7-2.4) mg/dl Total Bilirubin (0.2-1.0) mg/dl AST (13-39) U/L ALT (7-52) U/L Alkaline Phosphatase (34-104) U/L Troponin I (0-0.04) ng/ml Total Protein (6.0-8.3) gm/dl Albumin (3.4-5.0) gm/dl Globulin (2.5-4.0) gm/dl Albumin/Globulin Ratio (0.9-2) Procalcitonin < 0.05 (0-0.5) ng/ml Imaging Data Radiologist's Impression: Chest X-Ray 06/11/21 20:35 XR chest 1V portable CLINICAL HISTORY: SEPSIS. Evaluate cardiopulmonary status COMPARISON STUDY: 05/22/2021 TECHNIQUE: 1 view of the chest FINDINGS: Single frontal view of the chest demonstrates the cardiomediastinal silhouette to be within normal limits. There is a decreased inspiratory effort with elevation of the hemidiaphragms and crowding of the bronchovascular markings at the lung bases and centrally. Mild central vascular congestion cannot be excluded. The lungs are clear of alveolar opacities. There is no evidence for pleural effusion. There is no acute osseous pathology. IMPRESSION: Decreased inspiration with crowding of the bronchovascular markings centrally. There is suspicion of mild central vascular congestion as well. ACT 112: Negative or not required by law. Electronically signed by: Jhonatan Nayak M.D. 06/11/2021 9:16 PM ECG Data Attestation: I personally reviewed and interpreted this ECG as follows: Additional Comments: Twelve-lead EKG: Per my interpretation shows a normal sinus rhythm at a rate of 83 with a left bundle branch block. Left bundle branch is clonic compared to May 24, 2021. No PVCs. Prolonged QTC MDM Narrative 89-year-old female with shortness of breath that started earlier today. It is progressively worsened. She was hypoxic on room air at home with saturations in the mid 80s for EMS. She is chronically on apixaban. Vital signs here reveal hypertension and mild tachycardia. She is also tachypneic. Afebrile. Oxygen saturations were 93% on 6 L of oxygen. She appears to have moderate respiratory distress. She has rales and expiratory wheezing on exam BiPAP was ordered. Chest x-ray is suggestive of some congestive heart failure. Procalcitonin was negative. Twelve-lead EKG shows a sinus rhythm with a chronic left bundle branch block. Troponin is mildly elevated. Hemoglobin is 9.5. White blood cell count of 16. This is felt to be related to possibly a stress response due to her respiratory failure rather than infection as she denied having any infectious symptoms. She was given empiric ertapenem. The patient was placed on BiPAP and her oxygen saturation improved, her breathing appears to be more comfortable. She was also given Nitropaste and IV Lasix as well as an IV dose of hydralazine for her hypertension. She was also given a DuoNeb treatment. On reassessment, t he patient does seem to be improved. She will be seen by the hospitalist for further inpatient evaluation care Impression & Plan Acute cardiac pulmonary edema, Hypertensive urgency, Elevated troponin Discharge Plan Visit Data Chief Complaint: Shortness of Breath/Dyspnea Stated Complaint: LOWER BACK PAIN/LT. CHEST PAIN ED Provider: Randal Euceda Discharge Problem: Acute cardiac pulmonary edema, Hypertensive urgency, Elevated troponin Patient Disposition: Being Evaluated by Hospitalist Forms Stand Alone Forms: [facility] Prescriptions Prescriptions: No Action sennosides-docusate sodium [Senna with Docusate Sodium] 8.6-50 mg Tablet 2 tab-cap PO DAILY RF: 0 carvedilol [Coreg] 6.25 mg tablet 6.25 mg PO BID RF: 0 quetiapine [Seroquel] 25 mg tablet 12.5 mg PO BID RF: 0 simethicone 125 mg tablet,chewable 125 mg PO QID PRN (Reason: Gas) RF: 0 Refresh Optive 0.5-0.9 % Drops 1 drp OPHTHALMIC (EYE) QID PRN (Reason: Dry Eye(S)) RF: 0 pantoprazole 40 mg Tablet,Delayed Release (Dr/Ec) 40 mg PO DAILY RF: 0 apixaban 2.5 mg Tablet 2.5 mg PO BID RF: 0 amlodipine [Norvasc] 5 mg Tablet 5 mg PO HS Qty: 30 RF: 0 furosemide [Lasix] 40 mg tablet 40 mg PO DAILY Qty: 30 RF: 0 potassium chloride 10 mEq capsule, extended release 10 meq PO BID RF: 0 isosorbide dinitrate 20 mg tablet 20 mg PO TID RF: 0 atorvastatin 40 mg Tablet 40 mg PO QAM Qty: 30 RF: 0 clopidogrel 75 mg Tablet 75 mg PO QAM Qty: 30 RF: 0 isosorbide dinitrate [Isordil] 40 mg Tablet 40 mg PO TID@0700,1200,1700 Qty: 90 RF: 0 Referrals Referrals: Markel Melgoza MD [Primary Care Provider] -
[2021-06-11 20:46] LABS: Basophils # (auto) 0.06 K/uL (0-0.2); Basophils % (auto) 0.4 %; Eosinophils % (auto) 1.2 %; Hematocrit (blood only) 31.5 % (37-47); Hemoglobin 9.5 g/dL (12.0-16.0); Immature Granulocytes # (auto) 0.04 K/uL (0.00-0.02); Immature Granulocytes % (auto) 0.2 %; Lymphocytes # (auto) 1.13 K/uL (1.2-3.4); Mean Corpuscular Hemoglobin 20.8 pg (25-34); Mean Corpuscular Hgb Conc 30.2 g/dL (32-36); Mean Corpuscular Volume 69.1 fL (80-100); Mean Platelet Volume 8.8 fL (7.4-10.4); Monocytes # (auto) 2.07 K/uL (0.11-0.59); Monocytes % (auto) 12.8 %; Neutrophils # (auto) 12.63 K/uL (1.4-6.5); Neutrophils % (auto) 78.4 %; Nucleated RBC # (auto) 0.03 K/uL (0-0); Nucleated RBC % (auto) 0.2 %; Platelet Count 389 K/uL (130-400); RDW Coefficient of Variation 21.3 % (11.5-14.5); RDW Standard Deviation 53.7 fL (36.4-46.3); Red Blood Count 4.56 M/uL (4.2-5.4); White Blood Count 16.13 K/uL (4.8-10.8)
[2021-06-11 20:56] LABS: INR 1.1 (0.9-1.1); Partial Thromboplastin Time 25.4 Seconds (21.0-31.0); Prothrombin Time 10.9 Seconds (9.0-12.0)
[2021-06-11 21:09] LABS: Albumin Globulin Ratio 1.5 (0.9-2); Albumin Level 4.1 gm/dl (3.4-5.0); BUN Creatinine Ratio 19.9 (10-20); Bilirubin,Total 0.9 mg/dl (0.2-1.0); Creatinine Clr Calc Pharmacy 15.4 ml/min; Est GFR (African American) 25.6 ml/min; Est GFR (Non-African American) 22.1 ml/min; Globulin 2.7 gm/dl (2.5-4.0); Potassium 3.9 mmol/L (3.5-5.1); Total Protein 6.8 gm/dl (6.0-8.3)
[2021-06-11 21:11] LABS: Anisocytosis Present; Hypochromasia Present; Microcytosis Present; Ovalocytes 1+
--- NOTE | 2021-06-11 21:17 | XRay Report ---
XR chest 1V portable CLINICAL HISTORY: SEPSIS. Evaluate cardiopulmonary status COMPARISON STUDY: 05/22/2021 TECHNIQUE: 1 view of the chest FINDINGS: Single frontal view of the chest demonstrates the cardiomediastinal silhouette to be within normal li mits. There is a decreased inspiratory effort with elevation of the hemidiaphragms and crowding of th e bronchovascular markings at the lung bases and centrally. Mild central vascular congestion cannot b e excluded. The lungs are clear of alveolar opacities. There is no evidence for pleural effusion. The re is no acute osseous pathology. IMPRESSION: Decreased inspiration with crowding of the bronchovascular markings centrally. There is s uspicion of mild central vascular congestion as well. ACT 112: Negative or not required by law. Electronically signed by: Jhonatan Nayak M.D. 06/11/2021 9:16 PM
[2021-06-11] MEDS ORDERED: HYDROmorphone INJ 0.5 MG/0.5 ML SYR IV STA (22:17)
--- NOTE | 2021-06-11 23:20 | CT Scan Report ---
CT head/brain wo con CLINICAL HISTORY: gerard COMPARISON STUDY: 05/22/2021 CT DOSE: 1193.21 mGy.cm TECHNIQUE: Standard CT of the Brain was performed without IV contrast. A dose lowering technique was utilized adhering to the principles of ALARA. FINDINGS: Extraaxial space: There is no evidence for subdural hematoma. There are no extra-axial fluid collecti ons. Ventricles and cisterns: The ventricles are again mildly to moderately dilated bilaterally. There is no evidence for midline shift or mass effect. Parenchyma: There is no subarachnoid or intraparenchymal hemorrhage. There is no evidence for an acu te infarct or cerebral edema. There is mild cerebral cortical atrophy and decreased attenuation in th e periventricular white matter representing remote small vessel disease. There are no gross mass lesi ons. Osseous structures: There is no evidence for an acute fracture. The visualized paranasal sinuses are clear. The mastoid air cells are clear bilaterally. Soft tissues: There is no evidence for focal soft tissue swelling. IMPRESSION: No acute intracerebral pathology. Atrophy and small vessel disease are again seen. ACT 112: Negative or not required by law. Electronically signed by: Jhonatan Nayak M.D. 06/11/2021 11:19 PM
[2021-06-12 00:30] LABS: Base Excess ABG -3.2 mEq/L (-9-1.8); HCO3 ABG 20 mmol/L (19-24); PCO2 ABG 30 mmHg (35-46); PO2 ABG 78 mmHg (80-95); pH ABG 7.45 (7.35-7.45)
[2021-06-12 00:40] LABS: Allen Test Pos (Pos)
[2021-06-12] MEDS ORDERED: LABETALOL HCL IV 5 MG/ML 20ML IV STA (00:50)
--- NOTE | 2021-06-12 01:30 | History & Physical Report ---
Date of Service June 12, 2021 Assessment & Plan (1) Acute hypoxemic respiratory failure: Plan: Secondary to decompensated heart failure hx chronic systolic heart failure (EF 35 to 40%, TTE 2020) valvular 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, mild TR, severe MR) Underlying pulmonary hypertension Likely from hypertensive crisis ? 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 Attempt to contact patient's daughter in a.m. to assess possible disability contributing to medication compliance. (Ms. Christin Alcantara, contact #[phone].) Cardiology consult Re: Hypertensive crisis, CHF Basal insulin, ISS BG goal 1 10-1 40, carb count coverage PT OT eval DVT prophylaxis. Eliquis DNR as per patient's prior directives Text document was generated using [employer] voice recognition software. It may contain grammatical or spelling errors. Kindly contact undersigned for clarification of any documentation item in questi on. History of Present Illness Chief Complaint: Headache, uncontrolled BP Primary Care Provider: Markel Melgoza MD History obtained from patient and records. History somewhat limited from patient secondary to BiPAP. 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 Plavix added to regimen. Cardiology increase isosorbide dinitrate to 40 mg 3 times daily on discharge for uncontrolled BP. Patient with achy headache symptoms for about a week. BP uncontrolled as per patient. Family not " pill pushers" patient daughter not getting meds as frequently as they should be given. Home health staff with concerns about patient daughter's memory. Daughter is primary caregiver as per outpatient documentation. Staff requesting for social sciences instructor referral. PCPs office recommended ER evaluation 2 days ago. Yesterday, patient complained of shortness of breath. Left-sided chest pain complaint to nursing staff. No unusual cough symptoms. BiPAP placed upon arrival at the ER. IV Lasix and neb treatment administered at the ER. 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 Allergies Allergy/AdvReac Type Severity Reaction Status Date / Time Penicillins Allergy Intermediate Rash Verified 06/11/21 20:02 Quinolones Allergy Intermediate Rash Verified 06/11/21 20:02 aspirin AdvReac Mild burning in Verified 06/11/21 20:02 stomach Home Medications Medication Instructions Recorded Confirmed Type sennosides 8.6 mg-docusate sodium 2 tab-cap PO DAILY 09/06/20 06/11/21 History 50 mg tablet (Senna with Docusate Sodium) carboxymethylcellulose 0.5 1 drp OPHTHALMIC (EYE) QID PRN 02/13/21 06/11/21 History %-glycerin 0.9 % eye drops (Refresh Optive) carvedilol 6.25 mg tablet (Coreg) 6.25 mg PO BID 02/13/21 06/11/21 History quetiapine 25 mg tablet (Seroquel) 12.5 mg PO BID 02/13/21 06/11/21 History simethicone 125 mg chewable tablet 125 mg PO QID PRN 02/13/21 06/11/21 History pantoprazole 40 mg tablet,delayed 40 mg PO DAILY 04/26/21 06/11/21 History release amlodipine 5 mg tablet (Norvasc) 5 mg PO HS #30 tab 05/03/21 06/11/21 Rx apixaban 2.5 mg tablet 2.5 mg PO BID 05/03/21 06/11/21 History furosemide 40 mg tablet (Lasix) 40 mg PO DAILY #30 tab 05/03/21 06/11/21 Rx potassium chloride 10 mEq 10 meq PO BID 05/21/21 06/11/21 History capsule,extended release atorvastatin 40 mg tablet 40 mg PO QAM #30 tab 05/24/21 06/11/21 Rx clopidogrel 75 mg tablet 75 mg PO QAM #30 tab 05/24/21 06/11/21 Rx isosorbide dinitrate 40 mg tablet 40 mg PO TID@0700,1200,1700 #90 tab 05/24/21 06/11/21 Rx (Isordil) Past Med/Surg History Medical History Atrophy of left kidney Chest pain CHF due to valvular disease Coronary artery disease DM type 2 (diabetes mellitus, type 2) Do not resuscitate status Dyslipidemia Goals of care, counseling/discussion LBBB (left bundle branch block) Mild aortic stenosis Mild mitral stenosis Mitral regurgitation Nephrotic syndrome Palliative care encounter Severe protein-calorie malnutrition Subclavian arterial stenosis Weakness Surgical History H/O repair of left rotator cuff H/O varicose vein stripping History of appendectomy History of hysterectomy History of stent insertion of renal artery R renal artery; 2020 in [facility] Family History Other COPD (chronic obstructive pulmonary disease) Cancer Diabetes Hypertension Stroke Denies family history of Kidney disease Social History Smoking Status: Former smoker Tobacco Type: Cigarettes Second Hand Exposure: No; Hx Alcohol Use: No Hx Substance Use: No Preferred Language: Sudanese 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 Ability: Effective Weatherseal Technician Required: No Beliefs That Will Affect Care: None marital status: Single Current Living Situation: Family Current Living Situation Comment: lives w/ dtr How many Children do You have: 1 Feels Safe at Home: Yes Assistive Devices: Walker Review of Systems Review of Systems: Somewhat limited due to BiPAP/dementia Physical Exam Physical Exam: GENERAL: Slightly uncomfortable, no respiratory distress SKIN: Pallor, warm HEENT: Pale palpebral conjunctivae, no ptosis, dry buccal mucosa, BiPAP in place NECK : Supple, no tenderness CHEST : Decreased breath sounds A, no tenderness HEART : RRR, systolic murmur ABDOMEN: Some distention, nontender EXTREMITIES : Minimal LE swelling, no LE tenderness, no other conspicuous deformities noted NEUROLOGIC : Coherent, no facial asymmetry, no other gross focality Results & Data Results & Data ([facility]) Vital Signs (Past 12 Hours) Vital Signs Temp Pulse Pulse Resp BP BP Pulse Ox 06/11/21 23:58 87 20 96 06/11/21 22:07 87 18 199/89 H 100 06/11/21 22:06 83 18 199/89 H 100 06/11/21 21:01 86 23 99 06/11/21 20:48 95 H 19 96 06/11/21 20:35 84 18 100 06/11/21 19:50 36.9 C 118 H 26 H 202/155 H 93 06/11/21 19:20 36.9 C 107 H 27 H 202/155 H 95 Laboratory Results Laboratory Results WBC 16.13 K/uL (4.8-10.8) H 06/11/21 20:20 RBC 4.56 M/uL (4.2-5.4) 06/11/21 20:20 Hgb 9.5 g/dL (12.0-16.0) L 06/11/21 20:20 Hct 31.5 % (37-47) L 06/11/21 20:20 MCV 69.1 fL (80-100) L 06/11/21 20:20 MCH 20.8 pg (25-34) L 06/11/21 20:20 MCHC 30.2 g/dL (32-36) L 06/11/21 20:20 RDW Std Deviation 53.7 fL (36.4-46.3) H 06/11/21 20:20 RDW Coeff of Dion 21.3 % (11.5-14.5) H 06/11/21 20:20 Plt Count 389 K/uL (130-400) 06/11/21 20:20 MPV 8.8 fL (7.4-10.4) 06/11/21 20:20 Immature Gran % (Auto) 0.2 % 06/11/21 20:20 Neut % (Auto) 78.4 % 06/11/21 20:20 Lymph % (Auto) 7.0 % 06/11/21 20:20 Garden % (Auto) 12.8 % 06/11/21 20:20 Eos % (Auto) 1.2 % 06/11/21 20:20 Baso % (Auto) 0.4 % 06/11/21 20:20 Neut # (Auto) 12.63 K/uL (1.4-6.5) H 06/11/21 20:20 Lymph # (Auto) 1.13 K/uL (1.2-3.4) L 06/11/21 20:20 Garden # (Auto) 2.07 K/uL (0.11-0.59) H 06/11/21 20:20 Eos # (Auto) 0.20 K/uL (0-0.5) 06/11/21 20:20 Baso # (Auto) 0.06 K/uL (0-0.2) 06/11/21 20:20 Immature Gran # (Auto) 0.04 K/uL (0.00-0.02) H 06/11/21 20:20 Absolute Nucleated RBC 0.03 K/uL (0-0) H 06/11/21 20:20 Nucleated RBC % (auto) 0.2 % 06/11/21 20:20 Hypochromasia Present 06/11/21 20:20 Anisocytosis Present 06/11/21 20:20 Microcytosis Present 06/11/21 20:20 Ovalocytes 1+ 06/11/21 20:20 PT 10.9 Seconds (9.0-12.0) 06/11/21 20:20 INR 1.1 (0.9-1.1) 06/11/21 20:20 APTT 25.4 Seconds (21.0-31.0) 06/11/21 20:20 PTT Ratio 1.0 06/11/21 20:20 ABG pH 7.45 (7.35-7.45) 06/12/21 00:03 ABG pCO2 30 mmHg (35-46) L 06/12/21 00:03 ABG pO2 78 mmHg (80-95) L 06/12/21 00:03 ABG HCO3 20 mmol/L (19-24) 06/12/21 00:03 ABG O2 Saturation 96.0 % (90-95) H 06/12/21 00:03 ABG Base Excess -3.2 mEq/L (-9-1.8) 06/12/21 00:03 Vicente Test Pos (Pos) 06/12/21 00:03 Barometric Pressure 729.9 mm/Hg 06/12/21 00:03 Oxygen Given 6L 06/12/21 00:03 Sodium 136 mmol/L (136-145) 06/11/21 20:20 Potassium 3.9 mmol/L (3.5-5.1) 06/11/21 20:20 Chloride 106 mmol/L (98-107) 06/11/21 20:20 Carbon Dioxide 19 mmol/L (21-32) L 06/11/21 20:20 Anion Gap 11 (3-11) 06/11/21 20:20 BUN 39 mg/dl (6-23) H 06/11/21 20:20 Creatinine 1.96 mg/dl (0.6-1.2) H 06/11/21 20:20 Est Cr Clr Drug Dosing 15.4 ml/min 06/11/21 20:20 Est GFR ( Amer) 25.6 ml/min 06/11/21 20:20 Est GFR (Non-Af Amer) 22.1 ml/min 06/11/21 20:20 BUN/Creatinine Ratio 19.9 (10-20) 06/11/21 20:20 Glucose 262 mg/dl (70-99(Fasting)) H 06/11/21 20:20 Lactate 0.8 mmol/L (0.4-2.0) 06/11/21 21:21 Calcium 9.0 mg/dl (8.5-10.1) 06/11/21 20:20 Magnesium 2.0 mg/dl (1.7-2.4) 06/11/21 20:20 Total Bilirubin 0.9 mg/dl (0.2-1.0) 06/11/21 20:20 AST 19 U/L (13-39) 06/11/21 20:20 ALT 15 U/L (7-52) 06/11/21 20:20 Alkaline Phosphatase 197 U/L (34-104) H 06/11/21 20:20 Troponin I 0.07 ng/ml (0-0.04) H* 06/12/21 00:03 B-Natriuretic Peptide > 4700 pg/ml (0-100) H 06/11/21 21:21 Total Protein 6.8 gm/dl (6.0-8.3) 06/11/21 20:20 Albumin 4.1 gm/dl (3.4-5.0) 06/11/21 20:20 Globulin 2.7 gm/dl (2.5-4.0) 06/11/21 20:20 Albumin/Globulin Ratio 1.5 (0.9-2) 06/11/21 20:20 Procalcitonin < 0.05 ng/ml (0-0.5) 06/11/21 20:20 SARS-CoV-2, RNA, NAAT NEGATIVE (NEGATIVE) 06/12/21 00:00 Impressions Chest X-Ray 06/11/21 20:35 XR chest 1V portable CLINICAL HISTORY: SEPSIS. Evaluate cardiopulmonary status COMPARISON STUDY: 05/22/2021 TECHNIQUE: 1 view of the chest FINDINGS: Single frontal view of the chest demonstrates the cardiomediastinal silhouette to be within normal limits. There is a decreased inspiratory effort with elevation of the hemidiaphragms and crowding of the bronchovascular markings at the lung bases and centrally. Mild central vascular congestion cannot be excluded. The lungs are clear of alveolar opacities. There is no evidence for pleural effusion. There is no acute osseous pathology. IMPRESSION: Decreased inspiration with crowding of the bronchovascular markings centrally. There is suspicion of mild central vascular congestion as well. ACT 112: Negative or not required by law. Electronically signed by: Jhonatan Nayak M.D. 06/11/2021 9:[address] 06/11/21 22:17 CT head/brain wo con CLINICAL HISTORY: gerard COMPARISON STUDY: 05/22/2021 CT DOSE: 1193.21 mGy.cm TECHNIQUE: Standard CT of the Brain was performed without IV contrast. A dose lowering technique was utilized adhering to the principles of ALARA. FINDINGS: Extraaxial space: There is no evidence for subdural hematoma. There are no extra-axial fluid collections. Ventricles and cisterns: The ventricles are again mildly to moderately dilated bilaterally. There is no evidence for midline shift or mass effect. Parenchyma: There is no subarachnoid or intraparenchymal hemorrhage. There is no evidence for an acute infarct or cerebral edema. There is mild cerebral cortical atrophy and decreased attenuation in the periventricular white matter representing remote small vessel disease. There are no gross mass lesions. Osseous structures: There is no evidence for an acute fracture. The visualized paranasal sinuses are clear. The mastoid air cells are clear bilaterally. Soft tissues: There is no evidence for focal soft tissue swelling. IMPRESSION: No acute intracerebral pathology. Atrophy and small vessel disease are again seen. ACT 112: Negative or not required by law. Electronically signed by: Jhonatan Nayak M.D. 06/11/2021 11:19 PM Diagnostic Findings EKG as per my interpretation rate 85, NSR, LAD, LAFB, LBBB
[2021-06-12] MEDS ORDERED: GLUCAGON FOR INJ 1 MG VIAL SQ PRN (02:34)
[2021-06-12] MEDS ORDERED: DEXTROSE 50% 50 ML SYRINGE IV PRN (02:34)
[2021-06-12] MEDS ORDERED: CARBOHYDRATES FOR HYPOGLYCEMIA PO PRN (02:34)
[2021-06-12] MEDS ORDERED: GLUCOSE 40% GEL 15 GM TUBE PO PRN (02:34)
[2021-06-12] MEDS ORDERED: ACETAMINOPHEN 325 MG TAB PO PRN ×2 (02:34)
[2021-06-12] MEDS ORDERED: GLUCOSE 10 TABS/TUBE PO PRN (02:34)
[2021-06-12] MEDS: amLODIPine BESYLATE 5 MG TAB PO SCH ×2 (02:46→21:27)
[2021-06-12] MEDS: APIXABAN 2.5 MG TAB PO SCH ×3 (02:47→21:27)
[2021-06-12] MEDS ORDERED: ARTIFICIAL TEARS OP PRN (02:48)
[2021-06-12] MEDS ORDERED: SIMETHICONE 80 MG CHEW PO PRN (02:49)
[2021-06-12] MEDS: INSULIN ASPART PER UNIT SC SCH ×5 (03:02→21:23)
[2021-06-12 05:40] LABS: Basophils # (auto) 0.03 K/uL (0-0.2); Basophils % (auto) 0.2 %; Eosinophils # (auto) 0.01 K/uL (0-0.5); Eosinophils % (auto) 0.1 %; Hematocrit (blood only) 28.2 % (37-47); Hemoglobin 8.6 g/dL (12.0-16.0); Immature Granulocytes # (auto) 0.07 K/uL (0.00-0.02); Immature Granulocytes % (auto) 0.5 %; Lymphocytes # (auto) 0.67 K/uL (1.2-3.4); Lymphocytes % (auto) 5.2 %; Mean Corpuscular Hemoglobin 20.7 pg (25-34); Mean Corpuscular Hgb Conc 30.5 g/dL (32-36); Mean Platelet Volume 8.6 fL (7.4-10.4); Monocytes # (auto) 1.63 K/uL (0.11-0.59); Monocytes % (auto) 12.8 %; Neutrophils # (auto) 10.36 K/uL (1.4-6.5); Neutrophils % (auto) 81.2 %; Nucleated RBC # (auto) 0.02 K/uL (0-0); Nucleated RBC % (auto) 0.2 %; Platelet Count 298 K/uL (130-400); RDW Coefficient of Variation 21.2 % (11.5-14.5); RDW Standard Deviation 52.6 fL (36.4-46.3); Red Blood Count 4.15 M/uL (4.2-5.4); White Blood Count 12.77 K/uL (4.8-10.8)
[2021-06-12 05:54] LABS: BUN Creatinine Ratio 21.3 (10-20); Calcium 8.6 mg/dl (8.5-10.1); Creatinine Clr Calc Pharmacy 18.9 ml/min; Est GFR (African American) 32.8 ml/min; Est GFR (Non-African American) 28.3 ml/min; Potassium 3.1 mmol/L (3.5-5.1)
[2021-06-12 06:19] LABS: Anisocytosis Present; Hypochromasia Present; Ovalocytes 1+
[2021-06-12] MEDS: ISOSORBIDE DINITRATE 40 MG TAB PO SCH ×3 (07:25→17:45)
[2021-06-12] MEDS ORDERED: FUROSEMIDE 40 MG/4 ML VIAL IV ONE (08:00)
[2021-06-12] MEDS: DOCUSATE SODIUM/SENNA 50/8.6MG TAB PO SCH (08:36)
[2021-06-12] MEDS: POTASSIUM CHLORIDE 10 MEQ TABCR PO SCH ×2 (08:36→17:45)
[2021-06-12] MEDS: carvediloL 6.25 MG TAB PO SCH ×2 (08:36→21:27)
[2021-06-12] MEDS: ATORVASTATIN 40 MG TAB PO SCH (08:36)
[2021-06-12] MEDS: INSULIN GLARGINE SOLOSTAR 100 UNITS/ML 3 ML PEN SC SCH (08:36)
[2021-06-12] MEDS: PANTOprazole 40 MG TAB PO SCH (08:36)
[2021-06-12] MEDS: CLOPIDOGREL BISULFATE 75 MG TAB PO SCH (08:36)
[2021-06-12] MEDS ORDERED: ISOSORBIDE DINITRATE 20 MG TAB PO SCH (09:00)
[2021-06-12] MEDS: QUEtiapine FUMARATE 25 MG TABLET PO SCH ×2 (10:29→21:26)
[2021-06-12 11:48] LABS: Troponin I 0.06 ng/ml (0-0.04)
--- NOTE | 2021-06-12 13:53 | Cardiology Consultation ---
Date of Consultation June 12, 2021 Assessment & Plan (1) Acute hypoxemic respiratory failure: (2) Acute alteration in mental status: (3) Expressive aphasia: (4) Acute cardiac pulmonary edema: (5) Elevated troponin: (6) Stroke: (7) LBBB (left bundle branch block): This unfortunate patient has had multiple hospital admissions over the past several months. She has multiple medical problems. I agree with plan of treatment which should be conservative. History of Present Illness Attending Physician: Rg Galarza DO History of Present Illness This is an 89-year-old female with multiple hospital admissions over the past several months. She has multiple medical problems and was last admitted a few weeks ago with a stroke. She has chronic systolic heart failure and valvular heart disease. She is not a good historian and has a residual aphasia. Information is taken from the medical record. Allergies Allergy/AdvReac Type Severity Reaction Status Date / Time Penicillins Allergy Intermediate Rash Verified 06/11/21 20:02 Quinolones Allergy Intermediate Rash Verified 06/11/21 20:02 aspirin AdvReac Mild burning in Verified 06/11/21 20:02 stomach Home Medications Medication Instructions Recorded Confirmed Type sennosides 8.6 mg-docusate sodium 2 tab-cap PO DAILY 09/06/20 06/11/21 History 50 mg tablet (Senna with Docusate Sodium) carboxymethylcellulose 0.5 1 drp OPHTHALMIC (EYE) QID PRN 02/13/21 06/11/21 History %-glycerin 0.9 % eye drops (Refresh Optive) carvedilol 6.25 mg tablet (Coreg) 6.25 mg PO BID 02/13/21 06/11/21 History quetiapine 25 mg tablet (Seroquel) 12.5 mg PO BID 02/13/21 06/11/21 History simethicone 125 mg chewable tablet 125 mg PO QID PRN 02/13/21 06/11/21 History pantoprazole 40 mg tablet,delayed 40 mg PO DAILY 04/26/21 06/11/21 History release amlodipine 5 mg tablet (Norvasc) 5 mg PO HS #30 tab 05/03/21 06/11/21 Rx apixaban 2.5 mg tablet 2.5 mg PO BID 05/03/21 06/11/21 History furosemide 40 mg tablet (Lasix) 40 mg PO DAILY #30 tab 05/03/21 06/11/21 Rx potassium chloride 10 mEq 10 meq PO BID 05/21/21 06/11/21 History capsule,extended release atorvastatin 40 mg tablet 40 mg PO QAM #30 tab 05/24/21 06/11/21 Rx clopidogrel 75 mg tablet 75 mg PO QAM #30 tab 05/24/21 06/11/21 Rx isosorbide dinitrate 40 mg tablet 40 mg PO TID@0700,1200,1700 #90 tab 05/24/21 06/11/21 Rx (Isordil) Patient History Medical History Atrophy of left kidney Chest pain CHF due to valvular disease Coronary artery disease DM type 2 (diabetes mellitus, type 2) Do not resuscitate status Dyslipidemia Goals of care, counseling/discussion LBBB (left bundle branch block) Mild aortic stenosis Mild mitral stenosis Mitral regurgitation Nephrotic syndrome Palliative care encounter Severe protein-calorie malnutrition Subclavian arterial stenosis Weakness Surgical History H/O repair of left rotator cuff H/O varicose vein stripping History of appendectomy History of hysterectomy History of stent insertion of renal artery R renal artery; 2020 in [facility] Family History Other COPD (chronic obstructive pulmonary disease) Cancer Diabetes Hypertension Stroke Denies family history of Kidney disease Social History Smoking Status: Former smoker Tobacco Type: Cigarettes Second Hand Exposure: No; Hx Alcohol Use: No Hx Substance Use: No Preferred Language: Dutch 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 Ability: Effective Court Abstractor Required: No Beliefs That Will Affect Care: None marital status: Single Current Living Situation: Family Current Living Situation Comment: lives w/ dtr How many Children do You have: 1 Feels Safe at Home: Yes Assistive Devices: Walker Review of Systems Review of Systems: Not obtainable Physical Exam Physical Exam: General: no acute distress and stated age Head: normocephalic, no masses, lesions, tenderness or abnormalities Eyes: conjunctiva are pink and non-injected, sclera clear Neck: supple, no adenopathy, no bruits, normal jugular venous pulse, no hepatojugular reflux Chest: normal shape and normal respiratory effort Lungs: clear to auscultation and percussion Cardiac Exam: - regular rate & rhythm, systolic murmur- normal S1, normal S2 Pulses: 2(+) throughout Abdomen: abdomen soft, non-tender, no abnormal masses and no hepatosplenomegaly Musculoskeletal: no gait disturbance, no joint inflammation, no deforming arthritis Extremities: no edema and no cyanosis Neuro: grossly normal exam Results & Data ([facility]) Vital Signs (Past 12 Hours) Vital Signs Temp Pulse Pulse Resp BP BP Pulse Ox 06/12/21 13:00 96 06/12/21 08:02 37.1 C 77 24 174/79 H 93 06/12/21 08:00 06/12/21 07:31 37.1 C 92 H 24 187/92 H 93 06/12/21 07:22 06/12/21 05:22 84 18 187/78 H 97 06/12/21 05:18 85 18 188/83 H 96 06/12/21 05:17 06/12/21 02:00 18 97 Pulse Ox 06/12/21 13:00 06/12/21 08:02 06/12/21 08:00 93 06/12/21 07:31 06/12/21 07:22 95 06/12/21 05:22 06/12/21 05:18 06/12/21 05:17 96 06/12/21 02:00 Laboratory Results Laboratory Results - last 24 hr 06/11/21 06/11/21 06/11/21 20:20 20:20 20:20 WBC 16.13 H RBC 4.56 Hgb 9.5 L Hct 31.5 L MCV 69.1 L MCH 20.8 L MCHC 30.2 L RDW Std Deviation 53.7 H RDW Coeff of Dion 21.3 H Plt Count 389 MPV 8.8 Immature Gran % (Auto) 0.2 Neut % (Auto) 78.4 Lymph % (Auto) 7.0 Nuckolls % (Auto) 12.8 Eos % (Auto) 1.2 Baso % (Auto) 0.4 Neut # (Auto) 12.63 H Lymph # (Auto) 1.13 L [place]olls # (Auto) 2.07 H Eos # (Auto) 0.20 Baso # (Auto) 0.06 Immature Gran # (Auto) 0.04 H Absolute Nucleated RBC 0.03 H Nucleated RBC % (auto) 0.2 Hypochromasia Present Anisocytosis Present Microcytosis Present Ovalocytes 1+ PT 10.9 INR 1.1 APTT 25.4 PTT Ratio 1.0 ABG pH ABG pCO2 ABG pO2 ABG HCO3 ABG O2 Saturation ABG Base Excess Vicente Test Barometric Pressure Oxygen Given Sodium 136 Potassium 3.9 Chloride 106 Carbon Dioxide 19 L Anion Gap 11 BUN 39 H Creatinine 1.96 H Est Cr Clr Drug Dosing 15.4 Est GFR ( Amer) 25.6 Est GFR (Non-Af Amer) 22.1 BUN/Creatinine Ratio 19.9 Glucose 262 H POC Glucose Lactate Calcium 9.0 Magnesium 2.0 Total Bilirubin 0.9 AST 19 ALT 15 Alkaline Phosphatase 197 H Troponin I 0.06 H* B-Natriuretic Peptide Total Protein 6.8 Albumin 4.1 Globulin 2.7 Albumin/Globulin Ratio 1.5 Procalcitonin SARS-CoV-2, RNA, NAAT 06/11/21 06/11/21 06/11/21 20:20 21:21 21:21 WBC RBC Hgb Hct MCV MCH MCHC RDW Std Deviation RDW Coeff of Dion Plt Count MPV Immature Gran % (Auto) Neut % (Auto) Lymph % (Auto) Nuckolls % (Auto) Eos % (Auto) Baso % (Auto) Neut # (Auto) Lymph # (Auto) Nuckolls # (Auto) Eos # (Auto) Baso # (Auto) Immature Gran # (Auto) Absolute Nucleated RBC Nucleated RBC % (auto) Hypochromasia Anisocytosis Microcytosis Ovalocytes PT INR APTT PTT Ratio ABG pH ABG pCO2 ABG pO2 ABG HCO3 ABG O2 Saturation ABG Base Excess Vicente Test Barometric Pressure Oxygen Given Sodium Potassium Chloride Carbon Dioxide Anion Gap BUN Creatinine Est Cr Clr Drug Dosing Est GFR ( Amer) Est GFR (Non-Af Amer) BUN/Creatinine Ratio Glucose POC Glucose Lactate 0.8 Calcium Magnesium Total Bilirubin AST ALT Alkaline Phosphatase Troponin I B-Natriuretic Peptide > 4700 H Total Protein Albumin Globulin Albumin/Globulin Ratio Procalcitonin < 0.05 SARS-CoV-2, RNA, NAAT 06/12/21 06/12/21 06/12/21 00:00 00:03 00:03 WBC RBC Hgb Hct MCV MCH MCHC RDW Std Deviation RDW Coeff of Dion Plt Count MPV Immature Gran % (Auto) Neut % (Auto) Lymph % (Auto) N[place]olls % (Auto) Eos % (Auto) Baso % (Auto) Neut # (Auto) Lymph # (Auto) N[place]olls # (Auto) Eos # (Auto) Baso # (Auto) Immature Gran # (Auto) Absolute Nucleated RBC Nucleated RBC % (auto) Hypochromasia Anisocytosis Microcytosis Ovalocytes PT INR APTT PTT Ratio ABG pH 7.45 ABG pCO2 30 L ABG pO2 78 L ABG HCO3 20 ABG O2 Saturation 96.0 H ABG Base Excess -3.2 Vicente Test Pos Barometric Pressure 729.9 Oxygen Given 6L Sodium Potassium Chloride Carbon Dioxide Anion Gap BUN Creatinine Est Cr Clr Drug Dosing Est GFR ( Amer) Est GFR (Non-Af Amer) BUN/Creatinine Ratio Glucose POC Glucose Lactate Calcium Magnesium Total Bilirubin AST ALT Alkaline Phosphatase Troponin I 0.07 H* B-Natriuretic Peptide Total Protein Albumin Globulin Albumin/Globulin Ratio Procalcitonin SARS-CoV-2, RNA, NAAT NEGATIVE 06/12/21 06/12/21 06/12/21 02:51 04:54 04:54 WBC RBC Hgb Hct MCV MCH MCHC RDW Std Deviation RDW Coeff of Dion Plt Count MPV Immature Gran % (Auto) Neut % (Auto) Lymph % (Auto) N[place]olls % (Auto) Eos % (Auto) Baso % (Auto) Neut # (Auto) Lymph # (Auto) N[place]olls # (Auto) Eos # (Auto) Baso # (Auto) Immature Gran # (Auto) Absolute Nucleated RBC Nucleated RBC % (auto) Hypochromasia Anisocytosis Microcytosis Ovalocytes PT INR APTT PTT Ratio ABG pH ABG pCO2 ABG pO2 ABG HCO3 ABG O2 Saturation ABG Base Excess Vicente Test Barometric Pressure Oxygen Given Sodium 136 Potassium 3.1 L D Chloride 106 Carbon Dioxide 21 Anion Gap 9 BUN 34 H Creatinine 1.60 H D Est Cr Clr Drug Dosing 18.9 Est GFR ( Amer) 32.8 Est GFR (Non-Af Amer) 28.3 BUN/Creatinine Ratio 21.3 H Glucose 120 H POC Glucose 182 H Lactate Calcium 8.6 Magnesium Total Bilirubin AST ALT Alkaline Phosphatase Troponin I 0.08 H* B-Natriuretic Peptide Total Protein Albumin Globulin Albumin/Globulin Ratio Procalcitonin SARS-CoV-2, RNA, NAAT 06/12/21 06/12/21 06/12/21 04:55 07:27 12:58 WBC 12.77 H RBC 4.15 L Hgb 8.6 L Hct 28.2 L MCV 68.0 L MCH 20.7 L MCHC 30.5 L RDW Std Deviation 52.6 H RDW Coeff of Dion 21.2 H Plt Count 298 MPV 8.6 Immature Gran % (Auto) 0.5 Neut % (Auto) 81.2 Lymph % (Auto) 5.2 Nuckolls % (Auto) 12.8 Eos % (Auto) 0.1 Baso % (Auto) 0.2 Neut # (Auto) 10.36 H Lymph # (Auto) 0.67 L [place]olls # (Auto) 1.63 H Eos # (Auto) 0.01 Baso # (Auto) 0.03 Immature Gran # (Auto) 0.07 H Absolute Nucleated RBC 0.02 H Nucleated RBC % (auto) 0.2 Hypochromasia Present Anisocytosis Present Microcytosis Ovalocytes 1+ PT INR APTT PTT Ratio ABG pH ABG pCO2 ABG pO2 ABG HCO3 ABG O2 Saturation ABG Base Excess Vicente Test Barometric Pressure Oxygen Given Sodium Potassium Chloride Carbon Dioxide Anion Gap BUN Creatinine Est Cr Clr Drug Dosing Est GFR ( Amer) Est GFR (Non-Af Amer) BUN/Creatinine Ratio Glucose POC Glucose 130 H 127 H Lactate Calcium Magnesium Total Bilirubin AST ALT Alkaline Phosphatase Troponin I B-Natriuretic Peptide Total Protein Albumin Globulin Albumin/Globulin Ratio Procalcitonin SARS-CoV-2, RNA, NAAT Medications Administered Current Inpatient Medications Acetaminophen (Acetaminophen 325 Mg Tab) 650 mg PO Q4H PRN PRN Reason: Pain or Fever Stop: 07/12/21 03:33 Amlodipine Besylate (Amlodipine Besylate 5 Mg Tab) 5 mg PO HS [facility] Stop: 07/12/21 01:38 Last Admin: 06/12/21 02:46 Dose: 5 mg Documented by: Apixaban (Apixaban 2.5 Mg Tab) 2.5 mg PO BID [facility] Stop: 07/12/21 01:39 Last Admin: 06/12/21 08:36 Dose: 2.5 mg Documented by: Artificial Tears (Artificial Tears) 1 drops OP QID PRN PRN Reason: Dry Eye(S) Stop: 07/12/21 03:47 Atorvastatin Calcium (Atorvastatin 40 Mg Tab) 40 mg PO QAM [facility] Stop: 07/12/21 08:59 Last Admin: 06/12/21 08:36 Dose: 40 mg Documented by: Carvedilol (Carvedilol 6.25 Mg Tab) 6.25 mg PO BID [facility] Stop: 07/12/21 08:59 Last Admin: 06/12/21 08:36 Dose: 6.25 mg Documented by: Clopidogrel Bisulfate (Clopidogrel Bisulfate 75 Mg Tab) 75 mg PO QAM [facility] Stop: 07/12/21 08:59 Last Admin: 06/12/21 08:36 Dose: 75 mg Documented by: Dextrose (Dextrose 50% 50 Ml Syringe) 25 - 50 ml IV UD PRN; Protocol PRN Reason: Hypoglycemia Protocol Stop: 07/12/21 03:33 Glucagon (Glucagon For Inj 1 Mg Vial) 1 mg SQ UD PRN; Protocol PRN Reason: Hypoglycemia Protocol Stop: 07/12/21 03:33 Glucose (Glucose 10 Tabs/Tube) 4 - 8 tabs PO UD PRN; Protocol PRN Reason: Hypoglycemia Protocol Stop: 07/12/21 03:33 Glucose (Glucose 40% Gel 15 Gm Tube) 15 - 30 gm PO UD PRN; Protocol PRN Reason: Hypoglycemia Protocol Stop: 07/12/21 03:33 Insulin Aspart (Insulin Aspart Per Unit) 0 units SC ACHS [facility] Stop: 07/12/21 03:33 Last Admin: 06/12/21 13:29 Dose: Not Given Documented by: Insulin Glargine (Insulin Glargine Solostar 100 Units/Ml 3 Ml Pen) 5 units SC DAILY [facility] Stop: 07/12/21 08:59 Last Admin: 06/12/21 08:36 Dose: 5 units Documented by: Isosorbide Dinitrate (Isosorbide Dinitrate 40 Mg Tab) 40 mg PO TID@0700,1200,1700 [facility] Stop: 07/12/21 06:59 Last Admin: 06/12/21 12:03 Dose: 40 mg Documented by: Miscellaneous (Carbohydrates For Hypoglycemia ) 15 - 30 gm PO UD PRN PRN Reason: Hypoglycemia Protocol Stop: 07/12/21 03:33 Pantoprazole Sodium (Pantoprazole 40 Mg Tab) 40 mg PO DAILY [facility] Stop: 07/12/21 08:59 Last Admin: 06/12/21 08:36 Dose: 40 mg Documented by: Potassium Chloride (Potassium Chloride 10 Meq Tabcr) 10 meq PO BID17 [facility] Stop: 07/12/21 08:59 Last Admin: 06/12/21 08:36 Dose: 10 meq Documented by: Quetiapine Fumarate (Quetiapine Fumarate 25 Mg Tablet) 12.5 mg PO BID [facility] Stop: 07/12/21 08:59 Last Admin: 06/12/21 10:29 Dose: 12.5 mg Documented by: Senna/Docusate Sodium (Docusate Sodium/Senna 50/8.6mg Tab) 2 tab PO DAILY [facility] Stop: 07/12/21 08:59 Last Admin: 06/12/21 08:36 Dose: 2 tab Documented by: Simethicone (Simethicone 80 Mg Chew) 120 mg PO QID PRN PRN Reason: Gas Stop: 07/12/21 03:48
[2021-06-13] MEDS ORDERED: amLODIPine BESYLATE 5 MG TAB PO ONE (00:16)
[2021-06-13] MEDS ORDERED: MAGNESIUM SULFATE / D5W 1 GM/100 ML BAG IV ONE (01:11)
[2021-06-13] MEDS ORDERED: FUROSEMIDE 40 MG/4 ML VIAL IV STA (01:11)
[2021-06-13] MEDS ORDERED: POTASSIUM CHLORIDE CRTAB 20 MEQ TABCR PO STA (01:11)
[2021-06-13] MEDS ORDERED: XOPENEX/ATROVENT 1.25mg/0.5MG NEB COMBO NEB STA (01:12)
[2021-06-13] MEDS ORDERED: LEVALBUTEROL 1.25MG/0.5ML NEB INH STA (01:14)
[2021-06-13] MEDS ORDERED: IPRATROPIUM BROMIDE NEB SOLN 0.02% 2.5 ML VIAL INH STA (01:14)
[2021-06-13] MEDS ORDERED: FUROSEMIDE 40 MG/4 ML VIAL IV ONE (01:27)
[2021-06-13] MEDS: ISOSORBIDE DINITRATE 40 MG TAB PO SCH (06:31)
--- NOTE | 2021-06-13 06:36 | Electrocardiogram Report ---
Test Reason : Blood Pressure : / mmHG Vent. Rate : 083 BPM Atrial Rate : 083 BPM P-R Int : 152 ms QRS Dur : 164 ms QT Int : 440 ms P-R-T Axes : 025 -35 126 degrees QTc Int : 517 ms Normal sinus rhythm Possible Left atrial enlargement Left axis deviation Left bundle branch block Abnormal ECG When compared with ECG of 24-MAY-2021 12:08, QRS axis Shifted left Confirmed by Bhanu Rae ([id number]) on 06/13/2021 6:36:17 AM Referred By: REFERRED SELF Confirmed By:Bhanu Rae
[2021-06-13] MEDS ORDERED: carvediloL 6.25 MG TAB PO SCH (06:55)
--- NOTE | 2021-06-13 07:42 | XRay Report ---
XR chest 1V portable HISTORY: Shortness of breath. COMPARISON: Chest 06/11/2021. FINDINGS: There are low lung volumes. No pneumothorax. Small bilateral pleural effusions and mild pul monary edema have progressed. The heart remains enlarged. Bibasilar densities are again noted. IMPRESSION: Interval progression of the interstitial pulmonary edema and small bilateral pleural effusions. ACT 112: Negative or not required by law. Electronically signed by: Wing Lopez M.D. 06/13/2021 7:40 AM
[2021-06-13] MEDS: ATORVASTATIN 40 MG TAB PO SCH (07:47)
[2021-06-13] MEDS: APIXABAN 2.5 MG TAB PO SCH (07:47)
[2021-06-13] MEDS: QUEtiapine FUMARATE 25 MG TABLET PO SCH (07:48)
[2021-06-13] MEDS: POTASSIUM CHLORIDE 10 MEQ TABCR PO SCH (07:48)
[2021-06-13] MEDS: DOCUSATE SODIUM/SENNA 50/8.6MG TAB PO SCH (07:49)
[2021-06-13] MEDS: CLOPIDOGREL BISULFATE 75 MG TAB PO SCH (07:49)
[2021-06-13] MEDS: PANTOprazole 40 MG TAB PO SCH (07:49)
[2021-06-13] MEDS: INSULIN GLARGINE SOLOSTAR 100 UNITS/ML 3 ML PEN SC SCH (07:53)
[2021-06-13] MEDS: INSULIN ASPART PER UNIT SC SCH (08:04)
--- NOTE | 2021-06-13 08:21 | Discharge Summary ---
Date of Service June 13, 2021 Admission HPI Per Admitting Provider History obtained from patient and records. History somewhat limited from patient secondary to BiPAP. 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 Plavix added to regimen. Cardiology increase isosorbide dinitrate to 40 mg 3 times daily on discharge for uncontrolled BP. Patient with achy headache symptoms for about a week. BP uncontrolled as per patient. Family not " pill pushers" patient daughter not getting meds as frequently as they should be given. Home health staff with concerns about patient daughter's memory. Daughter is primary caregiver as per outpatient d ocumentation. Staff requesting for psychosocial rehabilitation counselor referral. PCPs office recommended ER evaluation 2 days ago. Yesterday, patient complained of shortness of breath. Left-sided chest pain complaint to nursing staff. No unusual cough symptoms. BiPAP placed upon arrival at the ER. IV Lasix and neb treatment administered at the ER. 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 Admission Exam Per Admitting Provider GENERAL: Slightly uncomfortable, no respiratory distress SKIN: Pallor, warm HEENT: Pale palpebral conjunctivae, no ptosis, dry buccal mucosa, BiPAP in place NECK : Supple, no tenderness CHEST : Decreased breath sounds A, no tenderness HEART : RRR, systolic murmur ABDOMEN: Some distention, nontender EXTREMITIES : Minimal LE swelling, no LE tenderness, no other conspicuous deformities noted NEUROLOGIC : Coherent, no facial asymmetry, no other gross focality Principal Diagnosis Accel Hypertension Acute hypoxemic respiratory failure: Decompensated heart failure hx chronic systolic heart failure (EF 35 to 40%, TTE 2020) valvular 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, mild TR, severe MR) Underlying pulmonary hypertension ?Compliance with medication regimen, possible daughter/caregiver disability Troponin elevation secondary to above chronic LBBB, hypertension history CVA/PVD asthma/COPD as per records, not in acute exacerbation 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 DM2 diet-controlled, well-controlled as of recent hemoglobin A1c of 6.09 April 2021 CRI, creatinine at baseline chronic anemia, hemoglobin at baseline Dementia as per records Past tobacco abuse Discharge Exam See below Discharge Data Allergies Allergy/AdvReac Type Severity Reaction Status Date / Time Penicillins Allergy Intermediate Rash Verified 06/11/21 20:02 Quinolones Allergy Intermediate Rash Verified 06/11/21 20:02 aspirin AdvReac Mild burning in Verified 06/11/21 20:02 stomach Consultations 06/11/21 21:44 ED Decision to Admit Stat 06/12/21 02:34 Consult Cardiology Routine Ordered Studies 06/11/21 22:17 CT head/brain wo con Urgent Current Diagnoses Left bundle-branch block, unspecified (06/12/21) Left ventricular failure, unspecified (06/12/21) Cerebral infarction, unspecified (06/12/21) Acute respiratory failure with hypoxia (06/12/21) Altered mental status, unspecified (06/12/21) Aphasia (06/12/21) Other specified abnormalities of plasma proteins (06/12/21) Allergies Penicillins Allergy (Intermediate, Verified 06/11/21 20:02) Rash Quinolones Allergy (Intermediate, Verified 06/11/21 20:02) Rash aspirin Adverse Reaction (Mild, Verified 06/11/21 20:02) burning in stomach Height/Weight/Isolation Height 5 ft 2 in Weight 56.6 kg Chemistry 06/11/21 06/12/21 20:20 04:54 Sodium 136 136 Potassium 3.9 3.1 L D Chloride 106 106 Carbon Dioxide 19 L 21 Anion Gap 11 9 BUN 39 H 34 H Creatinine 1.96 H 1.60 H D Glucose 262 H 120 H Microbiology 06/11/21 21:21 Blood Aerobic Blood Culture - Preliminary No growth in Aerobic bottle after 24 hours. 06/11/21 21:21 Blood Anaerobic Blood Culture - Preliminary No growth in Anaerobic bottle after 24 hours. 06/11/21 20:20 Blood Aerobic Blood Culture - Preliminary No growth in Aerobic bottle after 24 hours. 02/10/22 20:20 Blood Anaerobic Blood Culture - Preliminary No growth in Anaerobic bottle after 24 hours. 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 (Ms. Christin Alcantara, contact #[phone].) Basal insulin, ISS BG goal 1 10-1 40, carb count coverage PT OT DVT prophylaxis. Eliquis DNR as per patient's prior directives Wants to go home Max medical regimen ROS-No Headache, No Visual Changes, No Nausea, No Vomiting, No Fever, No Chills, No Neck Pain or Stiffness, No Chest Pain, No Palpitations, No SOB, No HODGE, No Cough, No Sputum, No Wheezing, No Abdominal Pain, No Diarrhea, No Hematemesis, No Hemoptysis, No Unexpected Weight Loss, No Flank pain, No Melena, No Hematochezia, No Frequency, No Urgency, No Burning, No Hematuria, No Rashes, No Diaphoresis. Appetite is Normal Physical Exam Gen-AAO x 1, NAD, Afebrile, demented Head-NCAT, EOMI, PERRLA, Anicteric Sclera, No Posterior Pharyngeal Erythema Neck-Supple, No JVD, No Thyromegaly, No Masses, No LAD, No Bruits Lungs-Clear to Auscultation Bilaterally, No Rales, No Rhonchi, No Wheezing, No Crepitus Chest-No S4, +S1, +S2, No S3, No Murmurs, No Rubs, No Gallops, No Ectopy Abdomen-Soft, Bowel Sounds Present, Non Tender, Non Distended, No Hepatomegaly, No Splenomegaly, No Palpable Masses, No Rebound, No Rigidity, No Guarding Musculoskeletal-Full Range of Motion Bilaterally, No CVAT Extremities-No Cyanosis, No Clubbing, No Edema Nuero-Cranial Nerves II-XII grossly intact, Motor WNL, DTRs WNL, Strength WNL, Non Focal Szmhh-[id number] raises BP Total Time Total Time Spent Total Time Spent (In Minutes): 45 mins Total Time Includes: Examination of the Patient, Discharge Planning, Medication Reconciliation and 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 With Other Providers Discharge Plan Discharge Items Patient Disposition: Home - Self-Care Reason For Visit: RESP FAILURE Discharge Diagnosis: Accel Hypertension Acute hypoxemic respiratory failure: Decompensated heart failure hx chronic systolic heart failure (EF 35 to 40%, TTE 2020) valvular 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, mild TR, severe MR) Underlying pulmonary hypertension ?Compliance with medication regimen, possible daughter/caregiver disability Troponin elevation secondary to above chronic LBBB, hypertension history CVA/PVD asthma/COPD as per records, not in acute exacerbation 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 DM2 diet-controlled, well-controlled as of recent hemoglobin A1c of 6.09 April 2021 CRI, creatinine at baseline chronic anemia, hemoglobin at baseline Dementia as per records Past tobacco abuse Health Concerns: Non Compliance with mediations Activity: Resume your previous activity Lifting: Gradually increase as tolerated Bathing: No limitations Exercise/Sports: Gradually increase as tolerated Weightbearing: Full weightbearing Non-emergency contact: Primary Care Provider, Hat Blocker and Heel Burnisher Call non-emergency contact if: you have any medication questions Follow-up/Referrals: Bobby German DO [Hat Blocker] - (Call for first opening) Markel Melgoza MD [Primary Care Provider] - Kira Millard MD [Physician] - (Call for first opening Blood Pressure specialist) Esther Mcadams MD [Outside Practitioners] - (Entered in error) Diet: Carb Consistent or DM2 and Heart Healthy Addtl Attending Provider Instructions: Take your medications as directed Pending Studies at Discharge: No Stand-Alone Forms: My [employer], Smoking Cessation Medications and DC Order Prescriptions: New carvedilol 6.25 mg Tablet 12.5 mg PO BID Qty: 120 RF: 0 amlodipine [Norvasc] 5 mg Tablet 10 mg PO HS Qty: 30 RF: 0 potassium chloride 10 mEq Tablet,Er Particles/Crystals 20 meq PO BID17 Qty: 120 RF: 0 Continued sennosides-docusate sodium [Senna with Docusate Sodium] 8.6-50 mg Tablet 2 tab-cap PO DAILY RF: 0 carvedilol [Coreg] 6.25 mg tablet 6.25 mg PO BID RF: 0 quetiapine [Seroquel] 25 mg tablet 12.5 mg PO BID RF: 0 simethicone 125 mg tablet,chewable 125 mg PO QID PRN (Reason: Gas) RF: 0 Refresh Optive 0.5-0.9 % Drops 1 drp OPHTHALMIC (EYE) QID PRN (Reason: Dry Eye(S)) RF: 0 pantoprazole 40 mg Tablet,Delayed Release (Dr/Ec) 40 mg PO DAILY RF: 0 apixaban 2.5 mg Tablet 2.5 mg PO BID RF: 0 furosemide [Lasix] 40 mg tablet 40 mg PO DAILY Qty: 30 RF: 0 atorvastatin 40 mg Tablet 40 mg PO QAM Qty: 30 RF: 0 clopidogrel 75 mg Tablet 75 mg PO QAM Qty: 30 RF: 0 isosorbide dinitrate [Isordil] 40 mg Tablet 40 mg PO TID@0700,1200,1700 Qty: 90 RF: 0 Discontinued amlodipine [Norvasc] 5 mg Tablet 5 mg PO HS Qty: 30 RF: 0 potassium chloride 10 mEq capsule, extended release 10 meq PO BID RF: 0 Discharge Orders: Discharge Order (Routine); Ordered 06/13/21 Ordered By: Rg Galarza Admission Data Admit Date/Time: 06/12/21 01:39 Attending Provider: Rg Galarza Admit Provider: Jhoan Love Primary Care Provider: Markel Melgoza Other Providers: Jhoan Love ; Tye Saha ; Bobby German ; Lance Coburn ; Trevor You ; Gopal Sweeney ; Anthony Ayoub ; Sarita Sewell ; Ashli Zapata ; Allyssa Villanueva ; Dat Bender
[2021-06-13] MEDS ORDERED: carvediloL 6.25 MG TAB PO ONE (08:45)
[2021-06-13] MEDS: POTASSIUM CHLORIDE 20 MEQ/15 ML UDC PO STA ×2 (09:01→09:05)
--- NOTE | 2021-06-13 16:59 | 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 Note ---
Date of Service: June 13, 2021 By CMS guidelines, a determination that the admission or continued stay is not medically necessary has been made by a member of the Utilization Review committee and a physician for this hospital stay. Therefore, a Code 44 will be completed and the inpatient admission will be changed to outpatient. Kaila Hood DO
[2021-06-13] MEDS ORDERED: carvediloL 12.5 MG TAB PO SCH (21:00)
[2021-06-13] MEDS ORDERED: amLODIPine BESYLATE 5 MG TAB PO SCH (21:00)
--- NOTE | 2021-06-14 18:19 | Electrocardiogram Report ---
Test Reason : Blood Pressure : / mmHG Vent. Rate : 086 BPM Atrial Rate : 086 BPM P-R Int : 190 ms QRS Dur : 154 ms QT Int : 432 ms P-R-T Axes : 074 -25 132 degrees QTc Int : 516 ms Normal sinus rhythm Left bundle branch block Abnormal ECG When compared with ECG of 11-JUN-2021 21:51, No significant change was found Confirmed by German Urena ([id number]) on 06/14/2021 6:19:22 PM Referred By: REFERRED SELF Confirmed By:German Urena
== END 2021-06-13 11:28 | disposition home health service (06) ==
LOC: ED 19:37 → INTOOBSV 06-12 01:39 → EDINP 06-12 01:39 → 2S 06-12 05:22

== ENCOUNTER 2021-06-17 06:54 | Inpatient (IN) ==
[2021-06-17] MEDS: NITROGLYCERIN SL 0.4 MG/TAB TAB SL PRN ×2 (07:43→10:43)
[2021-06-17 07:46] LABS: Basophils # (auto) 0.06 K/uL (0-0.2); Basophils % (auto) 0.7 %; Eosinophils % (auto) 3.5 %; Hematocrit (blood only) 29.5 % (37-47); Hemoglobin 8.9 g/dL (12.0-16.0); Immature Granulocytes # (auto) 0.02 K/uL (0.00-0.02); Immature Granulocytes % (auto) 0.2 %; Lymphocytes # (auto) 1.04 K/uL (1.2-3.4); Lymphocytes % (auto) 12.3 %; Mean Corpuscular Hemoglobin 20.7 pg (25-34); Mean Corpuscular Hgb Conc 30.2 g/dL (32-36); Mean Corpuscular Volume 68.8 fL (80-100); Mean Platelet Volume 8.8 fL (7.4-10.4); Monocytes # (auto) 1.49 K/uL (0.11-0.59); Monocytes % (auto) 17.6 %; Neutrophils # (auto) 5.55 K/uL (1.4-6.5); Neutrophils % (auto) 65.7 %; Platelet Count 340 K/uL (130-400); RDW Coefficient of Variation 20.6 % (11.5-14.5); RDW Standard Deviation 51.1 fL (36.4-46.3); Red Blood Count 4.29 M/uL (4.2-5.4); White Blood Count 8.46 K/uL (4.8-10.8)
[2021-06-17 08:08] LABS: Albumin Globulin Ratio 1.6 (0.9-2); Albumin Level 3.9 gm/dl (3.4-5.0); BUN Creatinine Ratio 18.4 (10-20); Creatinine Clr Calc Pharmacy 14.6 ml/min; Est GFR (African American) 24.1 ml/min; Est GFR (Non-African American) 20.8 ml/min; Globulin 2.5 gm/dl (2.5-4.0); Hypochromasia Present; Microcytosis Present; Polychromasia 1+; Potassium 3.8 mmol/L (3.5-5.1); Total Protein 6.4 gm/dl (6.0-8.3)
[2021-06-17] MEDS ORDERED: FUROSEMIDE 40 MG/4 ML VIAL IV ONE (08:09)
[2021-06-17 08:13] LABS: Troponin I 0.11 ng/ml (0-0.04)
--- NOTE | 2021-06-17 08:14 | Emergency Department Note ---
Impression & Plan Pulmonary edema, Chest pain, Elevated troponin I level, Anemia ED Provider Note NAME: FATOU BOWDEN AGE: 89 SEX: F : 1930 ARRIVES VIA: Walk-In INFORMANT: Patient, the patient's daughter ED PROVIDER(S): Alexys Fernandez DO CHIEF COMPLAINT: Shortness of breath HPI: The patient is an 89-year-old female who presented to the emergency department for an evaluation of chest pain and difficulty breathing. The patient does have a history of CHF. According to her daughter who does give most of the history the patient has been compliant with her usual outpatient medications. She has had no difficulty with falling. She does have significant difficulty breathing as well as chest pain. She notices left-sided chest pain which began at 3:00 this morning. She denies having any fever. She does have a cough which is a dry cough nonproductive. She has been experiencing orthopnea. She does have some lower extremity swelling which is not new for her. She is noticed no decreased urine output. She has been seen in our facility recently for similar complaints. Her daughter states that these are similar to when she was admitted to the hospital recently. ROS: See above HPI for pertinent positives & negatives. A total of 10 systems reviewed and were otherwise negative. PAST MEDICAL HISTORY: See Below PAST SURGICAL HISTORY: See Below FAMILY HISTORY: See Below SOCIAL HISTORY: See Below HOME MEDICATIONS: See Below ALLERGIES: See Below VITALS: See Below PHYSICAL EXAMINATION: GENERAL: The patient is awake and alert. She is somewhat anxious appearing. EYES: The conjunctivae are clear. The pupils are round and reactive. EARS, NOSE, MOUTH AND THROAT: The nose is without any evidence of any deformity. NECK: The neck is nontender and supple. RESPIRATORY: Diminished breath sounds are noted throughout. Rales were noted all lung boogie. There was mild conversational dyspnea. CARDIOVASCULAR: Regular rate and rhythm noted there no murmurs rubs or gallops normal S1 normal S2. GASTROINTESTINAL: The abdomen is soft. Abdomen is nontender. MUSCULOSKELETAL/EXTREMITIES: There is no evidence of gross deformity full range of motion is noted in the hips and shoulders. SKIN: Pedal edema was noted bilaterally. Skin was warm and dry. NEUROLOGIC: Patient is awake alert and oriented x3 MEDICAL DECISION MAKING: The patient is an 89-year-old female who presented to the emergency department with her daughter for a cardiac evaluation. The patient has a long cardiac history. The patient was having chest pain overnight. The patient was treated with medications in the emergency department. She was found to be in pulmonary edema. She was feeling somewhat improved on reevaluation. We discussed the patient's laboratory and radiographic studies with her and her daughter. We also discussed this case with the on-call [facility]. They have agreed to evaluate the patient in the emergency department for further management and disposition. Triage Nursing notes reviewed. Prior medical records reviewed Vital Signs: reviewed and remarkable for elevated blood pressure. Differential diagnosis: Reactive airway disease, pneumonia, pneumothorax, COPD, CHF, infections, cardiac ischemia, pulmonary embolism, musculoskeletal, gastrointestinal, as well as other pathologies. ER treatment provided: See below Diagnostics interpreted by me: ECG: EKG was obtained in the emergency department. My interpretation is sinus rhythm at 78 bpm. There was a left bundle branch block pattern noted. There is no ectopy. This was compared to a tracing from June 13, 2021. No significant changes were noted. Cardiac Monitoring: An order was placed for continuous cardiac monitoring. The monitor shows a rate of 71 bpm with sinus rhythm. Laboratory studies: As stated above and show below. Imaging studies: See below Consultation(s): The case was discussed with Nikolay who is covering for the [facility]. They will evaluate the patient in the emergency department Past Med/Surg History Medical History Atrophy of left kidney Chest pain CHF due to valvular disease Coronary artery disease DM type 2 (diabetes mellitus, type 2) Do not resuscitate status Dyslipidemia Goals of care, counseling/discussion LBBB (left bundle branch block) Mild aortic stenosis Mild mitral stenosis Mitral regurgitation Nephrotic syndrome Palliative care encounter Severe protein-calorie malnutrition Subclavian arterial stenosis Weakness Surgical History H/O repair of left rotator cuff H/O varicose vein stripping History of appendectomy History of hysterectomy History of stent insertion of renal artery R renal artery; 2019 in [facility] Family History Other COPD (chronic obstructive pulmonary disease) Cancer Diabetes Hypertension Stroke Denies family history of Kidney disease Social History (Reviewed 06/17/21 @ 08:10 by ALEJANDRINA Huerta Smoking Status: Former smoker Tobacco Type: Cigarettes Second Hand Exposure: No; Hx Alcohol Use: No Hx Substance Use: No Preferred Language: Botswanan 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 Ability: Effective 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 Required: No Beliefs That Will Affect Care: None marital status: Single Current Living Situation: Family Current Living Situation Comment: lives w/ dtr How many Children do You have: 1 Feels Safe at Home: Yes Assistive Devices: Oxygen - Continuous Allergies Allergies Allergy/AdvReac Type Severity Reaction Status Date / Time Penicillins Allergy Intermediate Rash Verified 06/17/21 08:44 Quinolones Allergy Intermediate Rash Verified 06/17/21 08:44 aspirin AdvReac Mild burning in Verified 06/17/21 08:44 stomach Home Meds Home Medications Medication Instructions Recorded Confirmed sennosides 8.6 mg-docusate sodium 2 tab-cap PO DAILY 09/06/20 06/17/21 50 mg tablet (Senna with Docusate Sodium) carboxymethylcellulose 0.5 1 drp OPHTHALMIC (EYE) QID PRN 02/13/21 06/17/21 %-glycerin 0.9 % eye drops (Refresh Optive) carvedilol 6.25 mg tablet (Coreg) 6.25 mg PO BID 02/13/21 06/17/21 quetiapine 25 mg tablet (Seroquel) 12.5 mg PO BID 02/13/21 06/17/21 simethicone 125 mg chewable tablet 125 mg PO QID PRN 02/13/21 06/17/21 pantoprazole 40 mg tablet,delayed 40 mg PO DAILY 04/26/21 06/17/21 release apixaban 2.5 mg tablet 2.5 mg PO BID 05/03/21 06/17/21 Previous Rx's Medication Instructions Recorded furosemide 40 mg tablet (Lasix) 40 mg PO DAILY #30 tab 05/03/21 atorvastatin 40 mg tablet 40 mg PO QAM #30 tab 05/24/21 clopidogrel 75 mg tablet 75 mg PO QAM #30 tab 05/24/21 isosorbide dinitrate 40 mg tablet 40 mg PO TID@0700,1200,1700 #90 tab 05/24/21 (Isordil) amlodipine 5 mg tablet (Norvasc) 10 mg PO HS #30 tab 06/13/21 potassium chloride 10 mEq 20 meq PO BID17 #120 tab 06/13/21 tablet,extended release(part/cryst) Results & Data (ED) Vital Signs Vital Signs - 24 hr 06/17/21 07:05 06/17/21 07:16 06/17/21 07:17 Temperature 36.4 C L Temperature Source Temporal Artery Scan Pulse Rate 78 Pulse Rate [Apical] 79 Respiratory Rate 25 H 31 H Respiratory Effort / Characteristics Spontaneous Respiratory Depth Normal Blood Pressure 186/104 H Blood Pressure [Right Arm] 188/88 H Blood Pressure Mean 131 Blood Pressure Mean [Right Arm] 121 Pulse Oximetry 90 100 Oxygen Delivery Method Room Air Nasal Cannula Nasal Cannula Oxygen Flow Rate 2 2 Sepsis Recent Fever Within 48 Hours No Sepsis New/Unexplained Change in Mental Status N/A Sepsis Action Taken by Nursing No Action Required 06/17/21 07:25 Temperature Temperature Source Pulse Rate Pulse Rate [Apical] Respiratory Rate Respiratory Effort / Characteristics Respiratory Depth Blood Pressure Blood Pressure [Right Arm] Blood Pressure Mean Blood Pressure Mean [Right Arm] Pulse Oximetry Oxygen Delivery Method Nasal Cannula Oxygen Flow Rate 2 Sepsis Recent Fever Within 48 Hours Sepsis New/Unexplained Change in Mental Status Sepsis Action Taken by Correction Medications Current Medication List: was personally reviewed by me Laboratory Data Attestation: I reviewed the patient's lab results. Result diagrams: 06/17/21 07:35 06/17/21 07:35 Lab Results 06/17/21 06/17/21 06/17/21 Range/Units 07:35 07:35 08:05 WBC 8.46 (4.8-10.8) K/uL RBC 4.29 (4.2-5.4) M/uL Hgb 8.9 L (12.0-16.0) g/dL Hct 29.5 L (37-47) % MCV 68.8 L (80-100) fL MCH 20.7 L (25-34) pg MCHC 30.2 L (32-36) g/dL RDW Std Deviation 51.1 H (36.4-46.3) fL RDW Coeff of Dion 20.6 H (11.5-14.5) % Plt Count 340 (130-400) K/uL MPV 8.8 (7.4-10.4) fL Immature Gran % (Auto) 0.2 % Neut % (Auto) 65.7 % Lymph % (Auto) 12.3 % [place] % (Auto) 17.6 % Eos % (Auto) 3.5 % Baso % (Auto) 0.7 % Neut # (Auto) 5.55 (1.4-6.5) K/uL Lymph # (Auto) 1.04 L (1.2-3.4) K/uL [place] # (Auto) 1.49 H (0.11-0.59) K/uL Eos # (Auto) 0.30 (0-0.5) K/uL Baso # (Auto) 0.06 (0-0.2) K/uL Immature Gran # (Auto) 0.02 (0.00-0.02) K/uL Polychromasia 1+ Hypochromasia Present Microcytosis Present Sodium 135 L (136-145) mmol/L Potassium 3.8 (3.5-5.1) mmol/L Chloride 104 (98-107) mmol/L Carbon Dioxide 21 (21-32) mmol/L Anion Gap 10 (3-11) BUN 38 H (6-23) mg/dl Creatinine 2.06 H (0.6-1.2) mg/dl Est Cr Clr Drug Dosing 14.6 ml/min Est GFR ( Amer) 24.1 ml/min Est GFR (Non-Af Amer) 20.8 ml/min BUN/Creatinine Ratio 18.4 (10-20) Glucose 176 H (70-99(Fasting)) mg/dl Calcium 9.0 (8.5-10.1) mg/dl Total Bilirubin 1.0 (0.2-1.0) mg/dl AST 19 (13-39) U/L ALT 14 (7-52) U/L Alkaline Phosphatase 182 H (34-104) U/L Troponin I 0.11 H* (0-0.04) ng/ml Total Protein 6.4 (6.0-8.3) gm/dl Albumin 3.9 (3.4-5.0) gm/dl Globulin 2.5 (2.5-4.0) gm/dl Albumin/Globulin Ratio 1.6 (0.9-2) Lipase 12 (11-82) U/L SARS-CoV-2, RNA, NAAT NEGATIVE (NEGATIVE) Administered Medications Albuterol (Albut/Ipratrop 3mg/0.5mg Neb 3 Ml Vial) 3 ml NEB Q4R [facility]; Protocol Stop: 07/17/21 11:10 Last Admin: 06/17/21 12:01 Dose: 3 ml Documented by: [id number] Apixaban (Apixaban 2.5 Mg Tab) 2.5 mg PO BID [facility] Stop: 07/17/21 11:10 Last Admin: 06/17/21 12:00 Dose: 2.5 mg Documented by: [id number] Clopidogrel Bisulfate (Clopidogrel Bisulfate 75 Mg Tab) 75 mg PO QAM [facility] Stop: 07/17/21 11:10 Last Admin: 06/17/21 12:00 Dose: 75 mg Documented by: [id number] Isosorbide Dinitrate (Isosorbide Dinitrate 40 Mg Tab) 40 mg PO TID@0700,1200,1700 [facility] Stop: 07/17/21 11:59 Last Admin: 06/17/21 12:01 Dose: 40 mg Documented by: [id number] Nitroglycerin (Nitroglycerin Sl 0.4 Mg/Tab Tab) 0.4 mg SL UD PRN PRN Reason: Chest Pain Stop: 07/17/21 07:36 Last Admin: 06/17/21 10:43 Dose: 0.4 mg Documented by: [id number] Admin: 06/17/21 07:43 Dose: 0.4 mg Documented by: [id number] Discontinued Medications Aspirin (Aspirin Chew 324 Mg) 324 mg PO NOW STA Stop: 06/17/21 08:29 Last Admin: 06/17/21 08:43 Dose: Not Given Documented by: [id number] Furosemide (Furosemide 40 Mg/4 Ml Vial) 40 mg IV ONE ONE Stop: 06/17/21 08:10 Last Admin: 06/17/21 08:13 Dose: 40 mg Documented by: [id number] Morphine Sulfate (Morphine Sulfate 2 Mg/Ml Carp) 1 mg IV NOW STA Stop: 06/17/21 11:47 Last Admin: 06/17/21 12:08 Dose: Not Given Documented by: [id number] Imaging Data Radiologist's Impression: Chest X-Ray 06/17/21 07:25 XR chest 1V portable CLINICAL HISTORY: Chest Pain. Follow-up airspace opacities COMPARISON STUDY: 06/13/2021 TECHNIQUE: 1 view of the chest FINDINGS: Single frontal view of the chest demonstrates the heart size to again be enlarged. Compared to the previous study, patchy interstitial and alveolar opacities are again seen bilaterally and essentially unchanged. No new alveolar opacities are seen. Is blunting of the costophrenic angles bilaterally representing small bilateral pleural effusions. There is no evidence for vascular congestion. There is no acute osseous pathology. IMPRESSION: 1. Compared to previous examination, bilateral interstitial and alveolar opacities are again seen. Small bilateral pleural effusions are also again present. ACT 112: Negative or not required by law. Electronically signed by: Jhonatan Nayak M.D. 06/17/2021 8:16 AM Discharge Plan Visit Data Chief Complaint: Chest Pain Stated Complaint: PAIN IN LEFT CHEST, HARD BREATHING ED Provider: Alexys Fernandez ED Midlevel Provider: Real Urias Discharge Problem: Pulmonary edema, Chest pain, Elevated troponin I level, Anemia Patient Disposition: Admitted As Inpatient Discharge Instructions Interventions: ED Discharge Assessment Last Done: 06/17/21 10:39
--- NOTE | 2021-06-17 08:18 | XRay Report ---
XR chest 1V portable CLINICAL HISTORY: Chest Pain. Follow-up airspace opacities COMPARISON STUDY: 06/13/2021 TECHNIQUE: 1 view of the chest FINDINGS: Single frontal view of the chest demonstrates the heart size to again be enlarged. Compared to the pr evious study, patchy interstitial and alveolar opacities are again seen bilaterally and essentially u nchanged. No new alveolar opacities are seen. Is blunting of the costophrenic angles bilaterally repr esenting small bilateral pleural effusions. There is no evidence for vascular congestion. There is no acute osseous pathology. IMPRESSION: 1. Compared to previous examination, bilateral interstitial and alveolar opacities are again seen. Sm all bilateral pleural effusions are also again present. ACT 112: Negative or not required by law. Electronically signed by: Jhonatan Nayak M.D. 06/17/2021 8:16 AM
[2021-06-17] MEDS ORDERED: ASPIRIN CHEW 324 MG PO STA (08:28)
--- NOTE | 2021-06-17 08:53 | History & Physical Report ---
Date of Service June 17, 2021 Assessment & Plan (1) Chest pain: (2) CHF exacerbation: (3) CHF due to valvular disease: (4) Coronary artery disease: (5) Hypertension: (6) Dyslipidemia: (7) Mild mitral stenosis: (8) Mitral regurgitation: (9) Mild aortic stenosis: Plan: - Admit to tele - Trend cardiac biomarkers, initial set was elevated at 0.11 - EKG reviewed as above - Last 2 D echo completed on 05/23 with EF of 35-40%, multiple valvular abnormalities, likely underlying pulmonary hypertension - Consult cardiology- Dr. Block - Given full dose aspirin in the ER. Pt denies chest pain currently. - Lasix 40 mg IV bid - Daily weights, fluids restriction of 1500 ml daily, strict I/Os, burrell inserted in the ER - PT/OT consulted - Check duplex BLE to r/o DVT and eliquis failure - Consider hospice referral with multiple hospital admissions for same reason- pt had previously been on hospice - will need to discuss with daughter prior to discharge - Continue [employer] medications pending adjustments per cardiology - give morning antihypertensives now since missed earlier today - Continue eliquis and plavix - recent lacunar stroke noted from past admission at the end of May 2021. (10) CKD (chronic kidney disease), stage III: (11) AMARIS (acute kidney injury): Plan: - Cr. baseline 1.6- 1.8, currently over 2.0, will consult nephrology - Cont Lasix as above - Hold nephrotoxins and renally reduce medications (12) DM type 2 (diabetes mellitus, type 2): Plan: -Last A1c was 6.9 on 04/29/2021 -ISS with Accu-Cheks ACHS DVT PPx: - teds, scds, Eliquis CODE: DNR/DNI Dispo: From home, likely to remain in the hospital x 1-2 days Discussion with daughter and patient to be held regarding possible transition to hospice prior to discharge home. See attending addendum. History of Present Illness Chief Complaint: chest pain Primary Care Provider: Markel Melgoza MD This is an 89 yo F with PMhx of chronic systolic heart failure (EF 35 to 40%, TTE 2020), valvular 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, mild TR, severe MR), underlying pulmonary hypertension, chronic LBBB, hypertension, history CVA, PVD, asthma/COPD as per records, 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, DM2 diet- controlled, CKD (baseline creatinine 1.6-1.8), chronic anemia (baseline hemoglobin 8-9), dementia, past tobacco abuse. Recent admission here at [facility] from 05/22 -05/24 for lacunar CVA/stroke. Plavix added to regimen at that time. Cardiology recently increase isosorbide dinitrate to 40 mg 3 times daily on discharge for uncontrolled BP. She was again admitted here at [facility] from 06/12-06/13 for similar respiratory failure symptoms associated with CHF. Pt woke up at 2:00 AM with acute left-sided chest pain which she rated as a 10/10. Afterward she noticed that she was increasingly short of breath at rest, and felt like she was taking shallow breaths with the inability to take a deep breath. She admits to feeling nauseous, but no vomiting. There has been increased swelling in her right lower leg compared to normal, but states that it is always typically slightly more swollen than left. She does have some swelling in the left around her ankle. Patient does not weigh herself on a daily basis, and does not know what her dry weight is. She drinks 1 L of water per day and has this sitting next to her at bedside. Reports her mouth is very dry so keep taking small sips. Her daughter brought her here to the ER due to her worsening symptoms but she is not present at bedside. She has been on bipap intermittently for shortness of breath during the past admissions. Today pt was given IV lasix 40 mg in the ER for concerns for volume overload with CHF. Will start her also on nebulizers routinely as she is wheezing and using accessory muscles to breath. She denies chest pain currently and wants treatment today. Pt ultimately states she would like to return home and be comfortable. Plan to discuss possible transition to hospice with her daughter. Allergies Allergy/AdvReac Type Severity Reaction Status Date / Time Penicillins Allergy Intermediate Rash Verified 06/17/21 08:44 Quinolones Allergy Intermediate Rash Verified 06/17/21 08:44 aspirin AdvReac Mild burning in Verified 06/17/21 08:44 stomach Home Medications Medication Instructions Recorded Confirmed Type sennosides 8.6 mg-docusate sodium 2 tab-cap PO DAILY 09/06/20 06/17/21 History 50 mg tablet (Senna with Docusate Sodium) carboxymethylcellulose 0.5 1 drp OPHTHALMIC (EYE) QID PRN 02/13/21 06/17/21 History %-glycerin 0.9 % eye drops (Refresh Optive) carvedilol 6.25 mg tablet (Coreg) 6.25 mg PO BID 02/13/21 06/17/21 History quetiapine 25 mg tablet (Seroquel) 12.5 mg PO BID 02/13/21 06/17/21 History simethicone 125 mg chewable tablet 125 mg PO QID PRN 02/13/21 06/17/21 History pantoprazole 40 mg tablet,delayed 40 mg PO DAILY 04/26/21 06/17/21 History release apixaban 2.5 mg tablet 2.5 mg PO BID 05/03/21 06/17/21 History furosemide 40 mg tablet (Lasix) 40 mg PO DAILY #30 tab 05/03/21 06/17/21 Rx atorvastatin 40 mg tablet 40 mg PO QAM #30 tab 05/24/21 06/17/21 Rx clopidogrel 75 mg tablet 75 mg PO QAM #30 tab 05/24/21 06/17/21 Rx isosorbide dinitrate 40 mg tablet 40 mg PO TID@0700,1200,1700 #90 tab 05/24/21 06/17/21 Rx (Isordil) amlodipine 5 mg tablet (Norvasc) 10 mg PO HS #30 tab 06/13/21 06/17/21 Rx carvedilol 6.25 mg tablet 12.5 mg PO BID #120 tab 06/13/21 06/17/21 Rx potassium chloride 10 mEq 20 meq PO BID17 #120 tab 06/13/21 06/17/21 Rx tablet,extended release(part/cryst) Past Med/Surg History Medical History Atrophy of left kidney Chest pain CHF due to valvular disease Coronary artery disease DM type 2 (diabetes mellitus, type 2) Do not resuscitate status Dyslipidemia Goals of care, counseling/discussion LBBB (left bundle branch block) Mild aortic stenosis Mild mitral stenosis Mitral regurgitation Nephrotic syndrome Palliative care encounter Severe protein-calorie malnutrition Subclavian arterial stenosis Weakness Surgical History H/O repair of left rotator cuff H/O varicose vein stripping History of appendectomy History of hysterectomy History of stent insertion of renal artery R renal artery; 2020 in [facility] Family History Other COPD (chronic obstructive pulmonary disease) Cancer Diabetes Hypertension Stroke Denies family history of Kidney disease Social History Smoking Status: Former smoker Tobacco Type: Cigarettes Second Hand Exposure: No; Hx Alcohol Use: No Hx Substance Use: No Preferred Language: Turkish 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 Ability: Effective Service Assistant Required: No Beliefs That Will Affect Care: None marital status: Single Current Living Situation: Family Current Living Situation Comment: lives w/ dtr How many Children do You have: 1 Feels Safe at Home: Yes Assistive Devices: Oxygen - Continuous Review of Systems Review of Systems: Constitutional: No fever, sweats or chills Eyes: No diplopia, no worsening or blurred vision ENT: normal hearing, no trouble swallowing Respiratory: As per HPI, no cough, sputum, + dyspnea at rest, + chronic on exertion, does not wear O2 at baseline Cardiovascular: As per HPI, currently no chest pain, tightness or palpitations Abdomen: As per HPI, no pain, nausea, vomiting, diarrhea or constipation Musculoskeletal: No joint pain, calf pain, + right lower leg swelling worse than the left Neurologic: No weakness, numbness/tingling, or balance problems, uses walker for ambulation assistance Psychiatric: No anxiety or depression Skin: No rash or itch Physical Exam Physical Exam: General: awake, alert, mild distress, chronically ill-appearing Head: Normocephalic, atraumatic ENT: PERRL, EOMI, no pharyngeal exudate, mucous membranes dry Respiratory: Diffuse expiratory wheeze heard throughout, crackles present in all boogie, diminished breath sounds at bases bilaterally, on 2 LPM NC Cardiac: Regular rate and rhythm, + moderate systolic murmur, no JVD, normal peripheral pulses, good capillary refill Abdominal: NABS x 4 quadrants, soft, nondistended, nontender to palpation, no rebound or guarding : Burrell catheter in place draining yellow urine Extremities: Normal inspection, 2+ pitting peripheral edema in LLE up to the knee, 1+ pitting in RLE around ankle, no erythema, calfs nontender to palpation Psych: Normal mood and affect Neuro: AAO x 3, strength intact bilaterally and rated 5/5, no motor deficits, speech is clear, no peripheral sensory deficits Results & Data Results & Data ([facility]) Vital Signs (Past 12 Hours) Vital Signs Temp Pulse Pulse Resp BP BP Pulse Ox 06/17/21 07:16 79 31 H 188/88 H 100 06/17/21 07:05 36.4 C L 78 25 H 186/104 H 90 Laboratory Results 06/17/21 06/17/21 06/17/21 08:05 07:35 07:35 WBC 8.46 RBC 4.29 Hgb 8.9 L Hct 29.5 L MCV 68.8 L MCH 20.7 L MCHC 30.2 L RDW Std Deviation 51.1 H RDW Coeff of Dion 20.6 H Plt Count 340 MPV 8.8 Immature Gran % (Auto) 0.2 Neut % (Auto) 65.7 Lymph % (Auto) 12.3 [place] % (Auto) 17.6 Eos % (Auto) 3.5 Baso % (Auto) 0.7 Neut # (Auto) 5.55 Lymph # (Auto) 1.04 L [place] # (Auto) 1.49 H Eos # (Auto) 0.30 Baso # (Auto) 0.06 Immature Gran # (Auto) 0.02 Polychromasia 1+ Hypochromasia Present Microcytosis Present Sodium 135 L Potassium 3.8 Chloride 104 Carbon Dioxide 21 Anion Gap 10 BUN 38 H Creatinine 2.06 H Est Cr Clr Drug Dosing 14.6 Est GFR ( Amer) 24.1 Est GFR (Non-Af Amer) 20.8 BUN/Creatinine Ratio 18.4 Glucose 176 H Calcium 9.0 Total Bilirubin 1.0 AST 19 ALT 14 Alkaline Phosphatase 182 H Troponin I 0.11 H* Total Protein 6.4 Albumin 3.9 Globulin 2.5 Albumin/Globulin Ratio 1.6 Lipase 12 SARS-CoV-2, RNA, NAAT NEGATIVE Diagnostic Findings Chest X-Ray 06/17/21 07:25 XR chest 1V portable CLINICAL HISTORY: Chest Pain. Follow-up airspace opacities COMPARISON STUDY: 06/13/2021 TECHNIQUE: 1 view of the chest FINDINGS: Single frontal view of the chest demonstrates the heart size to again be enlarged. Compared to the previous study, patchy interstitial and alveolar opacities are again seen bilaterally and essentially unchanged. No new alveolar opacities are seen. Is blunting of the costophrenic angles bilaterally representing small bilateral pleural effusions. There is no evidence for vascular congestion. There is no acute osseous pathology. IMPRESSION: 1. Compared to previous examination, bilateral interstitial and alveolar opacities are again seen. Small bilateral pleural effusions are also again present. ACT 112: Negative or not required by law. Electronically signed by: Jhonatan Nayak M.D. 06/17/2021 8:16 AM ECG Additional Comments: 17-JUN-2021 07:08:43 [facility]-EDSTAT ROUTINE RETRIEVAL Poor data quality, interpretation may be adversely affected Normal sinus rhythm Possible Left atrial enlargement Left bundle branch block Abnormal ECG When compared with ECG of 13-JUN-2021 04:44, No significant change was found 25mm/s10mm/[id number] 241CID: 15Referred by: REFERRED SELF Unconfirmed Vent. rate 78 BPM IN interval 166 ms QRS duration 158 ms QT/QTc 452/515 ms Code Status & VTE Plan Code Status DNR/DNI-discussed with patient at bedside Supervising Physician Co-Signing Physician Notes Is an 89-year-old female with multiple comorbidities including CHF, pulmonary hypertension, valvular heart disease, CVA, CKD stage IV, diabetes mellitus, former smoker, CVA, PE on Eliquis and other medical problems presents with history of fall left-sided chest pain, nonradiating, associated with shortness of breath which woke her up from sleep this morning. She also states that her leg swelling has been gradually worsening. She admits to taking her medications regularly and follows fluid restriction. Patient had multiple admissions recently. She was hypoxic while in ED and was placed on 2 L supplemental oxygen. Patient was previously under hospital service but released as per family. Please review HPI for complete details of presentation. Currently patient is chest pain-free. She admits to not taking her blood pressure medications this morning. Blood work suggestive of chronic anemia Hb 8.9, AMARIS 2.06, mild troponin elevation. Chest x-ray showed bilateral interstitial and alveolar opacities, small bilateral pleural effusions. EKG showed no significant change from prior, left bundle branch block noted. On exam patient is thin, frail, ill-appearing, mild respiratory distress, normocephalic atraumatic, EOMI, coarse breath sounds, bilateral basal crackles, expiratory wheezing, S1-S2,+ murmur, bilateral lower extremity edema right well-developed, abdomen soft, nontender, normal bowel sounds, alert, awake, oriented, grossly no focal deficits. Chest tenderness on left side on palpation. Patient is admitted for management of acute on chronic systolic and diastolic heart failure exacerbation, AMARIS. Will start on IV Lasix 40 mg twice daily, and monitor volume status, I's and O's, daily weight, fluid restriction, low-sodium diet. Consult cardiology. Continue supplemental oxygen as needed. Avoid nephrotoxic agents as able. Monitor renal function. Will check lower extremity Doppler to rule out DVT. Ordered scheduled Nebs. Discussed with patient's daughter over the phone, who prefers patient to be currently treated but eventually transition to hospice upon discharge. I personally reviewed the record. Patient is interviewed and examined at bedside. Patient's care is coordinated with Diamond Wyman PA-C. Please refer to the documentation above for details of patient's presentation and for discussion of other issues. (1) CHF exacerbation Heart failure type: unspecified Qualified Code(s): I50.9 - Heart failure, unspecified (2) CKD (chronic kidney disease), stage III Chronic kidney disease stage 3 subtype: stage 3b (GFR 30-44) Qualified Code(s): N18.32 - Chronic kidney disease, stage 3b (3) Chest pain Chest pain type: unspecified Qualified Code(s): R07.9 - Chest pain, unspecified (4) Hypertension Hypertension type: unspecified Qualified Code(s): I10 - Essential (primary) hypertension
[2021-06-17] MEDS ORDERED: DEXTROSE 50% 50 ML SYRINGE IV PRN (10:11)
[2021-06-17] MEDS ORDERED: GLUCOSE 10 TABS/TUBE PO PRN (10:11)
[2021-06-17] MEDS ORDERED: CARBOHYDRATES FOR HYPOGLYCEMIA PO PRN (10:11)
[2021-06-17] MEDS ORDERED: GLUCOSE 40% GEL 15 GM TUBE PO PRN (10:11)
[2021-06-17] MEDS ORDERED: GLUCAGON FOR INJ 1 MG VIAL SQ PRN (10:11)
--- NOTE | 2021-06-17 10:50 | Ultrasound Report ---
US venous doppler LE BI CLINICAL HISTORY: RLE swelling, mild LLE swelling COMPARISON: None available at the time of this dictation. TECHNIQUE: Bilateral lower extremity real-time compression venous ultrasound with Color Doppler imagi ng. Utilizing real-time ultrasonic imaging multiple real time high-resolution ultrasonic images with comp ression and noncompression maneuvers of the deep venous system in addition to color doppler imaging w ere performed from the common femoral vein through the proximal calf veins. FINDINGS: This is a limited study as the entire left lower extremity cannot be imaged. The patient ex perienced chest pain and had to go back to the emergency department before the study couldn't be comp leted. On the right side, there is normal compressibility of the deep venous system from the common femoral vein through the proximal calf veins. No current evidence of acute thrombosis is identified. On the left side, the common femoral vein, greater saphenous vein and superficial femoral vein were i linh and are patent. The popliteal vein and distal veins could not be imaged due to the patient's ch est pain. Impression: 1. Limited examination due to patient experiencing chest pain. The examination could not be completed on the left. 2. There is no evidence for DVT on the right or within the imaged veins on the left as described. ACT 112: Negative or not required by law. Electronically signed by: Jhonatan Nayak M.D. 06/17/2021 10:48 AM
[2021-06-17] MEDS ORDERED: carvediloL 12.5 MG TAB PO SCH (11:11)
[2021-06-17] MEDS ORDERED: ONDANSETRON INJ 2 MG/ML 2 ML VIAL IV PRN (11:11)
[2021-06-17] MEDS ORDERED: ACETAMINOPHEN 325 MG TAB PO PRN (11:11)
[2021-06-17] MEDS ORDERED: SIMETHICONE 80 MG CHEW PO PRN (11:22)
[2021-06-17] MEDS: CLOPIDOGREL BISULFATE 75 MG TAB PO SCH (12:00)
[2021-06-17] MEDS: APIXABAN 2.5 MG TAB PO SCH ×2 (12:00→20:57)
[2021-06-17] MEDS: ISOSORBIDE DINITRATE 40 MG TAB PO SCH ×2 (12:01→19:22)
[2021-06-17] MEDS: ALBUT/IPRATROP 3MG/0.5MG NEB 3 ML VIAL NEB SCH ×4 (12:01→22:18)
[2021-06-17] MEDS: MoRPHine SULFATE 2 MG/ML CARP IV STA ×2 (12:04→12:08)
[2021-06-17] MEDS: carvediloL 6.25 MG TAB PO SCH ×2 (12:32→20:57)
[2021-06-17] MEDS: INSULIN ASPART PER UNIT SC SCH ×3 (14:15→21:04)
--- NOTE | 2021-06-17 15:14 | Electrocardiogram Report ---
Test Reason : Blood Pressure : / mmHG Vent. Rate : 078 BPM Atrial Rate : 078 BPM P-R Int : 166 ms QRS Dur : 158 ms QT Int : 452 ms P-R-T Axes : 063 -05 119 degrees QTc Int : 515 ms Poor data quality, interpretation may be adversely affected Normal sinus rhythm Possible Left atrial enlargement Left bundle branch block Abnormal ECG When compared with ECG of 13-JUN-2021 04:44, No significant change was found Confirmed by German Urena ([id number]) on 06/17/2021 3:14:30 PM Referred By: REFERRED SELF Confirmed By:German Urena
[2021-06-17] MEDS ORDERED: POTASSIUM CHLORIDE CRTAB 20 MEQ TABCR PO SCH (17:00)
[2021-06-17] MEDS ORDERED: FUROSEMIDE 40 MG/4 ML VIAL IV SCH (17:00)
--- NOTE | 2021-06-17 18:15 | Nephrology Consultation ---
Date of Consultation June 17, 2021 Assessment & Plan (1) Hypertensive urgency: SBP 160-180s; goal is sbp 140-150s consistently and arriving here over a few days -increase lasix to 60 mg IV tid -gave 20 mEq po K x 2 more doses today -cont full dose amlodipine -cont lower dose coreg -continue imdur -avoid clonidine -agree w/ 1.5 L fluid limit and <2 gm daily Na diet -daily bmp >would look to put her on spironolactone; consider also chlorthalidone, hydralazine -await cardiology recs (2) CKD (chronic kidney disease) stage 4, GFR 15-29 ml/min: presume progressive ckd 4 w/ L renal atrophy, R renal stent and labile creatinine due in part to multiple episodes of HTN urgency. she had 2 gm proteinuria last september though this can be distorted/inflated total from elevated BP. baseline creatinine is high ones to 2; had been 1.6-1.8 early last summer. no indication for urgent discussion of HD; she would be a poor candidate for this given her impaired cognitive status and inability to consent/understand tx plan History of Present Illness Reason for Consultation: AMARIS on CKD and acute HF exacerbation Requesting Physician: Dr Lagunas Attending Physician: Tolu Lagunas MD History of Present Illness 89 y/o F whom I'm asked to see for AMARIS on CKD and acute heart failure exacerbation was admitted this am for evaluation of chest pain. PMH includes poorly controlled and labile hypertension w/ repeated admissions featuring hypertensive urgency, CKD 4 w/ baseline creatinine labile but approximately high ones to 2; recent admission here for a lacunar stroke, chronic L bundle branch block, valvular heart disease (severe MR and m-mod AR) and EF 35% w/ pulmonary htn on TTE last month, peripheral vascular disease w/ s ubclavian stenosis and hx of R renal arterial stent and atrophic L kidney, history of PE/splenic infarct on AC. at my evaluation the pt states she feels fine, denies dyspnea or chest pain or focal numbness/weakness. she states she is ready for d/c home. she is not a reliable historian. she does endorse orthopnea and back discomfort. she denies missing any medications and states her daugther gives them to her. note that at recent admission concerns were expressed about daughter giving pt correct meds. The pt had been on hospice this summer but apparently came off of it; has not had OP nephro follow up d/t hospice status Allergies Allergy/AdvReac Type Severity Reaction Status Date / Time Penicillins Allergy Intermediate Rash Verified 06/17/21 08:44 Quinolones Allergy Intermediate Rash Verified 06/17/21 08:44 aspirin AdvReac Mild burning in Verified 06/17/21 08:44 stomach Home Medications Medication Instructions Recorded Confirmed Type sennosides 8.6 mg-docusate sodium 2 tab-cap PO DAILY 09/06/20 06/17/21 History 50 mg tablet (Senna with Docusate Sodium) carboxymethylcellulose 0.5 1 drp OPHTHALMIC (EYE) QID PRN 02/13/21 06/17/21 History %-glycerin 0.9 % eye drops (Refresh Optive) carvedilol 6.25 mg tablet (Coreg) 6.25 mg PO BID 02/13/21 06/17/21 History quetiapine 25 mg tablet (Seroquel) 12.5 mg PO BID 02/13/21 06/17/21 History simethicone 125 mg chewable tablet 125 mg PO QID PRN 02/13/21 06/17/21 History pantoprazole 40 mg tablet,delayed 40 mg PO DAILY 04/26/21 06/17/21 History release apixaban 2.5 mg tablet 2.5 mg PO BID 05/03/21 06/17/21 History furosemide 40 mg tablet (Lasix) 40 mg PO DAILY #30 tab 05/03/21 06/17/21 Rx atorvastatin 40 mg tablet 40 mg PO QAM #30 tab 05/24/21 06/17/21 Rx clopidogrel 75 mg tablet 75 mg PO QAM #30 tab 05/24/21 06/17/21 Rx isosorbide dinitrate 40 mg tablet 40 mg PO TID@0700,1200,1700 #90 tab 05/24/21 06/17/21 Rx (Isordil) amlodipine 5 mg tablet (Norvasc) 10 mg PO HS #30 tab 06/13/21 06/17/21 Rx potassium chloride 10 mEq 20 meq PO BID17 #120 tab 06/13/21 06/17/21 Rx tablet,extended release(part/cryst) Patient History Medical History (Updated 06/17/21 @ 18:03 by Dayami Bee MD, PhD) Atrophy of left kidney Chest pain CHF due to valvular disease CKD (chronic kidney disease) stage 4, GFR 15-29 ml/min Coronary artery disease DM type 2 (diabetes mellitus, type 2) Do not resuscitate status Dyslipidemia Goals of care, counseling/discussion LBBB (left bundle branch block) Mild aortic stenosis Mild mitral stenosis Mitral regurgitation Nephrotic syndrome Palliative care encounter Resistant hypertension Severe protein-calorie malnutrition Subclavian arterial stenosis Weakness Surgical History H/O repair of left rotator cuff H/O varicose vein stripping History of appendectomy History of hysterectomy History of stent insertion of renal artery R renal artery; 2020 in [facility] Family History Other COPD (chronic obstructive pulmonary disease) Cancer Diabetes Hypertension Stroke Denies family history of Kidney disease Social History Smoking Status: Former smoker Tobacco Type: Cigarettes Second Hand Exposure: No; Hx Alcohol Use: No Hx Substance Use: No Preferred Language: Belarusian 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 Ability: Effective 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 Beliefs That Will Affect Care: None marital status: Single Current Living Situation: Family Current Living Situation Comment: lives w/ dtr How many Children do You have: 1 Feels Safe at Home: Yes Assistive Devices: Oxygen - Continuous Review of Systems Review of Systems: All systems reviewed & are unremarkable except as noted in HPI & below Physical Exam Constitutional: well developed, well nourished, + frail appearing and cooperative; no acute distress Eyes: EOM intact bilaterally ENMT: Ears: no external ear abnormality Nose: no external nose abnormality Mouth: + dry oral mucous membranes Neck: no nuchal rigidity Respiratory: normal respiratory effort Auscultation: + diminished lung sounds (extremely kyphotic spine) Cardiovascular: Rate/Rhythm: regular rate and regular rhythm Heart Sounds: + murmur Extremities: no edema Gastrointestinal (Abdomen): Inspection/Auscultation: normal bowel sounds Percussion/Palpation: abdomen soft; abdomen nontender Musculoskeletal: Extremities: strength 5/5 throughout Skin: no rashes, warm and dry Neurologic: carrington, fluent speech, no tremor Psychiatric: Orientation: oriented to person and oriented to place Insight: + limited insight Judgement: + limited judgement Genitourinary: burrell present w/ light yellow urine Results & Data ([facility]) Vital Signs (Past 12 Hours) Vital Signs Temp Pulse Pulse Resp BP BP Pulse Ox 06/17/21 16:00 73 23 96 06/17/21 15:45 67 26 H 97 06/17/21 15:31 69 24 179/73 H 98 06/17/21 15:30 68 24 98 06/17/21 15:15 75 24 94 06/17/21 15:00 68 25 H 168/64 H 94 06/17/21 14:38 69 24 96 06/17/21 14:30 68 30 H 163/103 H 06/17/21 12:00 69 22 179/69 H 96 06/17/21 11:58 18 96 06/17/21 09:00 71 22 178/81 H 100 06/17/21 07:16 79 31 H 188/88 H 100 06/17/21 07:05 36.4 C L 78 25 H 186/104 H 90 Laboratory Results 06/17/21 07:35 06/17/21 07:35 Diagnostic Findings BL LE venous dopplers (limited by pt having chest pain ) no DVT seen on R; L only partly imaged but no clot there either cxr Single frontal view of the chest demonstrates the heart size to again be enlarged. Compared to the previous study, patchy interstitial and alveolar opacities are again seen bilaterally and essentially unchanged. No new alveolar opacities are seen. Is blunting of the costophrenic angles bilaterally representing small bilateral pleural effusions. There is no evidence for vascular congestion. There is no acute osseous pathology. IMPRESSION: 1. Compared to previous examination, bilateral interstitial and alveolar opacities are again seen. Small bilateral pleural effusions are also again present. abd pelvis CT May 2021 FINDINGS: No pneumatosis, free air or portal venous gas is present. Left renal atrophy is again noted. There is no hydronephrosis. No ureteral calculi are identified although the course of the ureters is difficult to follow on this examination. Evaluation of the remainder of the abdomen and pelvis is suboptimal as unenhanced examination. Cardiomegaly is noted. Unenhanced images of the liver, spleen, adrenal glands and pancreas are unremarkable. There is no biliary or pancreatic ductal dilatation. No peripancreatic or pericholecystic inf iltration. There is no evidence for a bowel obstruction. The appendix is not visualized. No lymphadenopathy or ascites is noted. No acute fracture or suspicious lesion is identified within visualized skeletal structures. Extensive aortoiliac atherosclerotic plaque is again noted. IMPRESSION: 1. No acute process within the abdomen or pelvis on unenhanced exam. Nonvisualization of the appendix but no right lower quadrant inflammation. No bowel obstruction. 2. No hydronephrosis. No definite urinary calculi.
--- NOTE | 2021-06-17 18:33 | Cardiology Consultation ---
Date of Consultation June 17, 2021 Assessment & Plan (1) Chest pain: Chest pain Chronic heart failure with reduced ejection fraction Labile hypertension Dementia Questionable adherence to medication regimen Echocardiogram performed in May, revealed LVEF of 35 to 40% with moder ate to severe mitral regurgitation, estimated pulmonary artery systolic pressure of 40 to 50 mmHg. Left ventricular systolic function was first noted to be abnormal in April,, with normal LVEF at time of transthoracic study in Aug, 2020, as well as transesophageal echocardiogram and transthoracic echocardiogram studies performed in 2018 with normal ejection fractions at that time. A mild flat troponin elevation is noted today, similar to that observed when she was seen last week on 06/12/2021. Troponin peaked at 9.14 on 05/23/2021. Per my count, this is the patient's sixth inpatient cardiology encounter with our practice for 2020 and 2021. I have seen her on multiple occasions and multiple adjustments have been made in the past months with regards to her medication regimen. As has previously occurred, by the time I interviewed the patient, she has no subjective complaints and just asks to go home. Nephrology input noted and appreciated, given chest x-ray findings, I think it is reasonable to continue ongoing diuretic therapy. Patient is not a candidate for invasive cardiology procedures due to her cognitive impairment, frailty, renal insufficiency. I am not certain that additional medication changes are going to change her trajectory and palliative care approach may be most prudent. History of Present Illness Attending Physician: Tolu Lagunas MD History of Present Illness Lety Higuera is an 89 year old female seen in cardiology consultation [facility] pain and shortness of breath. Pt seen in ED room B9 as a telemetry overflow patient awaiting a room. At the time my assessment she is sitting in the bedside chair. She has absolutely no complaints and denies chest discomfort or shortness of breath at time of my assessment. As previously noted, interview is limited due to her cognitive impairment. Allergies Allergy/AdvReac Type Severity Reaction Status Date / Time Penicillins Allergy Intermediate Rash Verified 06/17/21 08:44 Quinolones Allergy Intermediate Rash Verified 06/17/21 08:44 aspirin AdvReac Mild burning in Verified 06/17/21 08:44 stomach Home Medications Medication Instructions Recorded Confirmed Type sennosides 8.6 mg-docusate sodium 2 tab-cap PO DAILY 09/06/20 06/17/21 History 50 mg tablet (Senna with Docusate Sodium) carboxymethylcellulose 0.5 1 drp OPHTHALMIC (EYE) QID PRN 02/13/21 06/17/21 History %-glycerin 0.9 % eye drops (Refresh Optive) carvedilol 6.25 mg tablet (Coreg) 6.25 mg PO BID 02/13/21 06/17/21 History quetiapine 25 mg tablet (Seroquel) 12.5 mg PO BID 02/13/21 06/17/21 History simethicone 125 mg chewable tablet 125 mg PO QID PRN 02/13/21 06/17/21 History pantoprazole 40 mg tablet,delayed 40 mg PO DAILY 04/26/21 06/17/21 History release apixaban 2.5 mg tablet 2.5 mg PO BID 05/03/21 06/17/21 History furosemide 40 mg tablet (Lasix) 40 mg PO DAILY #30 tab 05/03/21 06/17/21 Rx atorvastatin 40 mg tablet 40 mg PO QAM #30 tab 05/24/21 06/17/21 Rx clopidogrel 75 mg tablet 75 mg PO QAM #30 tab 05/24/21 06/17/21 Rx isosorbide dinitrate 40 mg tablet 40 mg PO TID@0700,1200,1700 #90 tab 05/24/21 06/17/21 Rx (Isordil) amlodipine 5 mg tablet (Norvasc) 10 mg PO HS #30 tab 06/13/21 06/17/21 Rx potassium chloride 10 mEq 20 meq PO BID17 #120 tab 06/13/21 06/17/21 Rx tablet,extended release(part/cryst) Patient History Medical History Atrophy of left kidney Chest pain CHF due to valvular disease CKD (chronic kidney disease) stage 4, GFR 15-29 ml/min Coronary artery disease DM type 2 (diabetes mellitus, type 2) Do not resuscitate status Dyslipidemia Goals of care, counseling/discussion LBBB (left bundle branch block) Mild aortic stenosis Mild mitral stenosis Mitral regurgitation Nephrotic syndrome Palliative care encounter Resistant hypertension Severe protein-calorie malnutrition Subclavian arterial stenosis Weakness Surgical History H/O repair of left rotator cuff H/O varicose vein stripping History of appendectomy History of hysterectomy History of stent insertion of renal artery R renal artery; 2020 in [facility] Family History Other COPD (chronic obstructive pulmonary disease) Cancer Diabetes Hypertension Stroke Denies family history of Kidney disease Social History Smoking Status: Former smoker Tobacco Type: Cigarettes Second Hand Exposure: No; Hx Alcohol Use: No Hx Substance Use: No Preferred Language: Vietnamese 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 Ability: Effective 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: No Beliefs That Will Affect Care: None marital status: Single Current Living Situation: Family Current Living Situation Comment: lives w/ dtr How many Children do You have: 1 Feels Safe at Home: Yes Assistive Devices: Oxygen - Continuous Review of Systems Review of Systems: Unobtainable due to cognitive status Physical Exam Constitutional: + cachectic Respiratory: Reduced breath sounds the bases Cardiovascular: Rate/Rhythm: regular rhythm Heart Sounds: + murmur (2/6 systolic murmur) Extremities: + edema Gastrointestinal (Abdomen): normal bowel sounds, soft, nontender, no hepatosplenomegaly Neurologic: Moves all 4 extremities, cognitive impairment noted Results & Data ([facility]) Vital Signs (Past 12 Hours) Vital Signs Temp Pulse Pulse Resp BP BP Pulse Ox 06/17/21 16:00 73 23 96 06/17/21 15:45 67 26 H 97 06/17/21 15:31 69 24 179/73 H 98 06/17/21 15:30 68 24 98 06/17/21 15:15 75 24 94 06/17/21 15:00 68 25 H 168/64 H 94 06/17/21 14:38 69 24 96 06/17/21 14:30 68 30 H 163/103 H 06/17/21 12:00 69 22 179/69 H 96 06/17/21 11:58 18 96 06/17/21 09:00 71 22 178/81 H 100 06/17/21 07:16 79 31 H 188/88 H 100 06/17/21 07:05 36.4 C L 78 25 H 186/104 H 90 Diagnostic Findings EKG 06/17/2020 reviewed independently reveals sinus rhythm at 72 bpm, left bundle branch block. QRS duration 160 ms. -Left bundle branch block is a chronic finding, observe dating back to previous tracing on 03/31/2019 Chest x-ray with small bilateral pleural effusions (1) Chest pain Chest pain type: unspecified Qualified Code(s): R07.9 - Chest pain, unspecified
[2021-06-17] MEDS ORDERED: POTASSIUM CHLORIDE 10 MEQ TABCR PO ONE (19:21)
[2021-06-17] MEDS: POTASSIUM CHLORIDE CRTAB 20 MEQ TABCR PO SCH (20:56)
[2021-06-17] MEDS: amLODIPine BESYLATE 5 MG TAB PO SCH (20:57)
[2021-06-17] MEDS: QUEtiapine FUMARATE 25 MG TABLET PO SCH (20:58)
[2021-06-18] MEDS: FUROSEMIDE 40 MG/4 ML VIAL IV SCH ×4 (00:14→20:58)
[2021-06-18] MEDS: POTASSIUM CHLORIDE CRTAB 20 MEQ TABCR PO SCH ×5 (00:15→21:06)
[2021-06-18] MEDS: ALBUT/IPRATROP 3MG/0.5MG NEB 3 ML VIAL NEB SCH ×2 (03:22→07:04)
[2021-06-18 05:47] LABS: Hematocrit (blood only) 29.4 % (37-47); Hemoglobin 8.6 g/dL (12.0-16.0); Mean Corpuscular Hemoglobin 20.2 pg (25-34); Mean Corpuscular Hgb Conc 29.3 g/dL (32-36); Mean Corpuscular Volume 69.2 fL (80-100); Platelet Count 352 K/uL (130-400); RDW Coefficient of Variation 20.2 % (11.5-14.5); RDW Standard Deviation 50.3 fL (36.4-46.3); Red Blood Count 4.25 M/uL (4.2-5.4); White Blood Count 10.78 K/uL (4.8-10.8)
[2021-06-18 06:16] LABS: Albumin Globulin Ratio 1.4 (0.9-2); Albumin Level 3.6 gm/dl (3.4-5.0); BUN Creatinine Ratio 19.4 (10-20); Bilirubin,Total 0.9 mg/dl (0.2-1.0); Calcium 8.4 mg/dl (8.5-10.1); Chol HDL Ratio 3.8 (0-5); Est GFR (African American) 22.8 ml/min; Est GFR (Non-African American) 19.7 ml/min; Globulin 2.5 gm/dl (2.5-4.0); Potassium 3.9 mmol/L (3.5-5.1); Total Protein 6.1 gm/dl (6.0-8.3)
[2021-06-18 07:52] LABS: Estimated Average Glucose 148 mg/dl; Hemoglobin A1C 6.8 % (4.5-5.6)
[2021-06-18] MEDS: PANTOprazole 40 MG TAB PO SCH (08:00)
[2021-06-18] MEDS: APIXABAN 2.5 MG TAB PO SCH ×2 (08:00→20:56)
[2021-06-18] MEDS: ATORVASTATIN 40 MG TAB PO SCH (08:00)
[2021-06-18] MEDS: ISOSORBIDE DINITRATE 40 MG TAB PO SCH ×3 (08:00→16:57)
[2021-06-18] MEDS: carvediloL 6.25 MG TAB PO SCH ×2 (08:01→20:57)
[2021-06-18] MEDS: CLOPIDOGREL BISULFATE 75 MG TAB PO SCH (08:02)
[2021-06-18] MEDS: DOCUSATE SODIUM/SENNA 50/8.6MG TAB PO SCH (08:02)
[2021-06-18] MEDS: QUEtiapine FUMARATE 25 MG TABLET PO SCH ×2 (08:03→20:57)
[2021-06-18] MEDS: INSULIN ASPART PER UNIT SC SCH ×4 (08:05→21:50)
--- NOTE | 2021-06-18 08:31 | Nephrology Progress Note ---
Date of Service June 18, 2021 Assessment & Plan (1) Hypertensive urgency: Plan: SBP 140s-180s; goal is sbp 140-150s consistently over a few days; concerns about medication adherence at home noted and well documented ->>>continue lasix 60 mg IV tid ->>>started K 20 mEq tid > monitor dosing needs closely -cont full dose amlodipine -cont lower dose coreg -continue imdur -avoid clonidine -wean 02 as tolerated >>>-added spironolactone 50 mg daily to start this am -agree w/ 1.5 L fluid limit and <2 gm daily Na diet -daily bmp >consider in future chlorthalidone, hydralazine (2) CKD (chronic kidney disease) stage 4, GFR 15-29 ml/min: Plan: presume progressive ckd 4 w/ L renal atrophy, R renal stent and labile creatinine due in part to multiple episodes of HTN urgency. she had 2 gm proteinuria last september though this can be distorted/inflated total from elevated BP. baseline creatinine is high ones to 2; had been 1.6-1.8 early last summer. no indication for urgent discussion of HD; she would be a poor candidate for this given her impaired cognitive status and inability to consent to/understand tx plan. willing to accept worse creatinine in order to control BP. creat 2.2 today acceptable and comparable to 06/17 admission values 2.1 -daily bmp Admission and Anticipated Discharge Date Admission Date: June 17, 2021 Subjective diarrhea as of this AM 2 BM "pudding" consistency per RN w/in 2 hrs. Denies shortness of breath, edema, recurrent chest pain Review of Systems Review of Systems: All systems reviewed & are unremarkable except as noted in Subjective Physical Exam Constitutional: well developed, well nourished, + frail appearing and cooperative; no acute distress Eyes: EOM intact bilaterally ENMT: Ears: no external ear abnormality Nose: no external nose abnormality Mouth: + dry oral mucous membranes Neck: no nuchal rigidity Respiratory: normal respiratory effort Auscultation: + diminished lung sounds (extremely kyphotic spine) and + crackles (Left base diminished sounds on the right) Cardiovascular: Rate/Rhythm: regular rate and regular rhythm Heart Sounds: + murmur Extremities: + edema (Improving right greater than left lower extremity) Gastrointestinal (Abdomen): Inspection/Auscultation: normal bowel sounds Percussion/Palpation: abdomen soft; abdomen nontender Musculoskeletal: Extremities: strength 5/5 throughout Skin: no rashes, warm and dry Psychiatric: Orientation: oriented to person and oriented to place Insight: + limited insight Judgement: + limited judgement Genitourinary: Lu present ample light yellow urine Results & Data ([facility]) Vital Signs (Past 12 Hours) Vital Signs Temp Pulse Pulse Resp BP BP BP 06/18/21 07:45 36.9 C 77 16 176/62 H 06/18/21 07:04 71 22 06/18/21 04:41 36.9 C 73 18 163/67 H 06/18/21 03:22 87 24 06/17/21 23:00 36.7 C 84 18 159/80 H 06/17/21 22:44 36.7 C 84 18 159/80 H 06/17/21 22:01 78 26 H 184/89 H 06/17/21 22:00 78 25 H 06/17/21 21:30 78 26 H 06/17/21 21:02 80 25 H 144/125 H 06/17/21 21:00 81 26 H 06/17/21 20:30 80 22 Pulse Ox 06/18/21 07:45 95 06/18/21 07:04 94 06/18/21 04:41 93 06/18/21 03:22 95 06/17/21 23:00 91 06/17/21 22:44 91 06/17/21 22:01 100 06/17/21 22:00 99 06/17/21 21:30 94 06/17/21 21:02 98 06/17/21 21:00 96 06/17/21 20:30 95 Laboratory Results 06/18/21 05:30 06/18/21 05:30
[2021-06-18] MEDS: SPIRONOLACTONE 25 MG TAB PO SCH (09:00)
[2021-06-18] MEDS ORDERED: ALBUT/IPRATROP 3MG/0.5MG NEB 3 ML VIAL NEB PRN (09:45)
--- NOTE | 2021-06-18 13:55 | Electrocardiogram Report ---
Test Reason : Blood Pressure : / mmHG Vent. Rate : 072 BPM Atrial Rate : 072 BPM P-R Int : 162 ms QRS Dur : 160 ms QT Int : 464 ms P-R-T Axes : 052 -33 127 degrees QTc Int : 508 ms Normal sinus rhythm Left atrial enlargement Left axis deviation Left bundle branch block Abnormal ECG When compared with ECG of 17-JUN-2021 07:08, No significant change was found Confirmed by Vinay Tao ([id number]) on 06/18/2021 1:55:13 PM Referred By: REFERRED SELF Confirmed By:Vinay Tao
--- NOTE | 2021-06-18 14:30 | Hospitalist Progress Note ---
Date of Service June 18, 2021 Assessment & Plan (1) Chest pain: Plan: (2) CHF exacerbation: (3) CHF due to valvular disease: (4) Coronary artery disease: (5) Hypertension: (6) Dyslipidemia: (7) Mild mitral stenosis: (8) Mitral regurgitation: (9) Mild aortic stenosis: (10) CKD (chronic kidney disease), stage III: (11) AMARIS (acute kidney injury): (12) DM type 2 (diabetes mellitus, type 2): Plan: Hypertensive urgency Chronic systolic CHF with mod-sev MR and PAP of 40-50 and EF 35-40% (echo 05/2021) - concern for medication noncompliance. Nephrology managing- Goal SBP 140s-150s over few days. Contiinue lasix 60 mg iv bid with potassium, continue amlodipine, coreg and imdur. Aldactone added by nephro. Salt and fluid restriction. - Cardio following- not a candidate for invasive cardiac procedure given her cognitive status, frailty and renal insufficiency - Got message from that daughter wants hospice evaluation- called daughter to update but unable to reach her. Apparently patient was on hospice until few months back and it seems with her multiple hospitalization and fraility and medical comorbidities, she would like to go back to hospice. Consult placed. CKD 4 with left renal atrophy, right renal stent- Nephrology following. Baseline Cr 1.6-1.8, currently 2.2. Monitor. Chest pain- currently chest pain free. mild flat troponin. Seen by cardiology H/o recent lacunar stroke- on plavix and eliquis Diabetes mellitus type 2- A1c 6.9. ISS as needed. BG reasonable. Will not be aggressive given her advanced age and fraility DVT PPx: scds, Eliquis CODE: DNR/DNI Dispo: Pending hospice evaluation. Unable to reach daughter over the phone Admission and Anticipated Discharge Date Admission Date: June 17, 2021 Subjective Seen and examined at bedside. Frail elderly female sitting at bed. Feels okay. States breathing is okay. Denies any chest pain, nausea or vomiting. Physical Exam Physical Exam: General: Frail elderly female, Sitting in bed, not in acute distress, on NC Chest: Fair breath sounds bilaterally CVS: Regular rate and rhythm, normal heart sounds Abdomen: Soft, non tender, not distended, normal bowel sounds Neuro: Awake, alert, conversing well, non focal Extremities: No cyanosis, clubbing, edema + Results & Data Results & Data ([facility]) Vital Signs (Past 12 Hours) Vital Signs Temp Pulse Resp BP Pulse Ox 06/18/21 10:54 36.8 C 70 16 176/63 H 95 06/18/21 08:00 70 06/18/21 07:45 36.9 C 77 16 176/62 H 95 06/18/21 07:04 71 22 94 06/18/21 04:41 36.9 C 73 18 163/67 H 93 06/18/21 03:22 87 24 95 Laboratory Results Short CBC 06/18/21 Range/Units 05:30 WBC 10.78 (4.8-10.8) K/uL Hgb 8.6 L (12.0-16.0) g/dL Hct 29.4 L (37-47) % Plt Count 352 (130-400) K/uL BMP 06/18/21 05:30 Sodium 137 Potassium 3.9 Chloride 106 Carbon Dioxide 21 BUN 42 H Creatinine 2.16 H Glucose 132 H Calcium 8.4 L Cardiac Enzymes 06/17/21 06/17/21 Range/Units 14:03 22:01 Troponin I 0.11 H* 0.12 H* (0-0.04) ng/ml Liver Function 06/18/21 Range/Units 05:30 Total Bilirubin 0.9 (0.2-1.0) mg/dl AST 12 L (13-39) U/L ALT 11 (7-52) U/L Alkaline Phosphatase 161 H (34-104) U/L Albumin 3.6 (3.4-5.0) gm/dl Diagnostic Findings Laboratory Results WBC 10.78 K/uL (4.8-10.8) 06/18/21 05:30 RBC 4.25 M/uL (4.2-5.4) 06/18/21 05:30 Hgb 8.6 g/dL (12.0-16.0) L 06/18/21 05:30 Hct 29.4 % (37-47) L 06/18/21 05:30 MCV 69.2 fL (80-100) L 06/18/21 05:30 MCH 20.2 pg (25-34) L 06/18/21 05:30 MCHC 29.3 g/dL (32-36) L 06/18/21 05:30 RDW Std Deviation 50.3 fL (36.4-46.3) H 06/18/21 05:30 RDW Coeff of Dion 20.2 % (11.5-14.5) H 06/18/21 05:30 Plt Count 352 K/uL (130-400) 06/18/21 05:30 MPV 9.0 fL (7.4-10.4) 06/18/21 05:30 Immature Gran % (Auto) 0.2 % 06/17/21 07:35 Neut % (Auto) 65.7 % 06/17/21 07:35 Lymph % (Auto) 12.3 % 06/17/21 07:35 [place] % (Auto) 17.6 % 06/17/21 07:35 Eos % (Auto) 3.5 % 06/17/21 07:35 Baso % (Auto) 0.7 % 06/17/21 07:35 Neut # (Auto) 5.55 K/uL (1.4-6.5) 06/17/21 07:35 Lymph # (Auto) 1.04 K/uL (1.2-3.4) L 06/17/21 07:35 [place] # (Auto) 1.49 K/uL (0.11-0.59) H 06/17/21 07:35 Eos # (Auto) 0.30 K/uL (0-0.5) 06/17/21 07:35 Baso # (Auto) 0.06 K/uL (0-0.2) 06/17/21 07:35 Immature Gran # (Auto) 0.02 K/uL (0.00-0.02) 06/17/21 07:35 Polychromasia 1+ 06/17/21 07:35 Hypochromasia Present 06/17/21 07:35 Microcytosis Present 06/17/21 07:35 Sodium 137 mmol/L (136-145) 06/18/21 05:30 Potassium 3.9 mmol/L (3.5-5.1) 06/18/21 05:30 Chloride 106 mmol/L (98-107) 06/18/21 05:30 Carbon Dioxide 21 mmol/L (21-32) 06/18/21 05:30 Anion Gap 10 (3-11) 06/18/21 05:30 BUN 42 mg/dl (6-23) H 06/18/21 05:30 Creatinine 2.16 mg/dl (0.6-1.2) H 06/18/21 05:30 Est Cr Clr Drug Dosing 14.0 ml/min 06/18/21 05:30 Est GFR ( Amer) 22.8 ml/min 06/18/21 05:30 Est GFR (Non-Af Amer) 19.7 ml/min 06/18/21 05:30 BUN/Creatinine Ratio 19.4 (10-20) 06/18/21 05:30 Glucose 132 mg/dl (70-99(Fasting)) H 06/18/21 05:30 POC Glucose 160 mg/dl (70-99) H 06/18/21 12:09 Estimat Average Glucose 148 mg/dl 06/18/21 05:30 Hemoglobin A1c 6.8 % (4.5-5.6) H 06/18/21 05:30 Calcium 8.4 mg/dl (8.5-10.1) L 06/18/21 05:30 Magnesium 2.0 mg/dl (1.7-2.4) 06/18/21 05:30 Total Bilirubin 0.9 mg/dl (0.2-1.0) 06/18/21 05:30 AST 12 U/L (13-39) L 06/18/21 05:30 ALT 11 U/L (7-52) 06/18/21 05:30 Alkaline Phosphatase 161 U/L (34-104) H 06/18/21 05:30 Troponin I 0.12 ng/ml (0-0.04) H* 06/17/21 22:01 Total Protein 6.1 gm/dl (6.0-8.3) 06/18/21 05:30 Albumin 3.6 gm/dl (3.4-5.0) 06/18/21 05:30 Globulin 2.5 gm/dl (2.5-4.0) 06/18/21 05:30 Albumin/Globulin Ratio 1.4 (0.9-2) 06/18/21 05:30 Triglycerides 115 mg/dl (0-150) 06/18/21 05:30 Cholesterol 115 mg/dl (0-200) 06/18/21 05:30 LDL Cholesterol, Calc 62 mg/dl 06/18/21 05:30 VLDL Cholesterol, Calc 23 mg/dl (0-30) 06/18/21 05:30 HDL Cholesterol 30 mg/dl 06/18/21 05:30 Cholesterol/HDL Ratio 3.8 (0-5) 06/18/21 05:30 Lipase 12 U/L (11-82) 06/17/21 07:35 SARS-CoV-2, RNA, NAAT NEGATIVE (NEGATIVE) 06/17/21 08:05 Impressions Chest X-Ray 06/17/21 07:25 XR chest 1V portable CLINICAL HISTORY: Chest Pain. Follow-up airspace opacities COMPARISON STUDY: 06/13/2021 TECHNIQUE: 1 view of the chest FINDINGS: Single frontal view of the chest demonstrates the heart size to again be enlarged. Compared to the previous study, patchy interstitial and alveolar opacities are again seen bilaterally and essentially unchanged. No new alveolar opacities are seen. Is blunting of the costophrenic angles bilaterally representing small bilateral pleural effusions. There is no evidence for vascular congestion. There is no acute osseous pathology. IMPRESSION: 1. Compared to previous examination, bilateral interstitial and alveolar opacities are again seen. Small bilateral pleural effusions are also again present. ACT 112: Negative or not required by law. Electronically signed by: Jhonatan Nayak M.D. 06/17/2021 8:16 AM Venous Doppler Study 06/17/21 09:57 US venous doppler LE BI CLINICAL HISTORY: RLE swelling, mild LLE swelling COMPARISON: None available at the time of this dictation. TECHNIQUE: Bilateral lower extremity real-time compression venous ultrasound with Color Doppler imaging. Utilizing real-time ultrasonic imaging multiple real time high-resolution ultrasonic images with compression and noncompression maneuvers of the deep venous system in addition to color doppler imaging were performed from the common femoral vein through the proximal calf veins. FINDINGS: This is a limited study as the entire left lower extremity cannot be imaged. The patient experienced chest pain and had to go back to the emergency department before the study couldn't be completed. On the right side, there is normal compressibility of the deep venous system from the common femoral vein through the proximal calf veins. No current evidence of acute thrombosis is identified. On the left side, the common femoral vein, greater saphenous vein and superficial femoral vein were imaged and are patent. The popliteal vein and distal veins could not be imaged due to the patient's chest pain. Impression: 1. Limited examination due to patient experiencing chest pain. The examination could not be completed on the left. 2. There is no evidence for DVT on the right or within the imaged veins on the left as described. ACT 112: Negative or not required by law. Electronically signed by: Jhonatan Nayak M.D. 06/17/2021 10:48 AM Medications Administered Current Inpatient Medications Acetaminophen (Acetaminophen 325 Mg Tab) 650 mg PO Q4H PRN PRN Reason: Moderate Pain Stop: 07/17/21 11:10 Albuterol (Albut/Ipratrop 3mg/0.5mg Neb 3 Ml Vial) 3 ml NEB Q4R PRN; Protocol PRN Reason: Wheezing Stop: 07/17/21 11:10 Amlodipine Besylate (Amlodipine Besylate 5 Mg Tab) 10 mg PO HS WYATT Stop: 07/17/21 20:59 Last Admin: 06/17/21 20:57 Dose: 10 mg Documented by: Apixaban (Apixaban 2.5 Mg Tab) 2.5 mg PO BID WYATT Stop: 07/17/21 11:10 Last Admin: 06/18/21 08:00 Dose: 2.5 mg Documented by: Artificial Tears (Artifical Tears- Order Awaiting Action) 1 drops OP QID PRN PRN Reason: dry eyes Stop: 07/18/21 00:00 Atorvastatin Calcium (Atorvastatin 40 Mg Tab) 40 mg PO QAM WYATT Stop: 07/18/21 08:59 Last Admin: 06/18/21 08:00 Dose: 40 mg Documented by: Carvedilol (Carvedilol 6.25 Mg Tab) 6.25 mg PO BID WYATT Stop: 07/17/21 11:59 Last Admin: 06/18/21 08:01 Dose: 6.25 mg Documented by: Clopidogrel Bisulfate (Clopidogrel Bisulfate 75 Mg Tab) 75 mg PO QAM WYATT Stop: 07/17/21 11:10 Last Admin: 06/18/21 08:02 Dose: 75 mg Documented by: Dextrose (Dextrose 50% 50 Ml Syringe) 25 - 50 ml IV UD PRN; Protocol PRN Reason: Hypoglycemia Protocol Stop: 07/17/21 10:10 Furosemide (Furosemide 40 Mg/4 Ml Vial) 60 mg IV TID WYATT Stop: 07/17/21 20:59 Last Admin: 06/18/21 08:03 Dose: 60 mg Documented by: Glucagon (Glucagon For Inj 1 Mg Vial) 1 mg SQ UD PRN; Protocol PRN Reason: Hypoglycemia Protocol Stop: 07/17/21 10:10 Glucose (Glucose 10 Tabs/Tube) 4 - 8 tabs PO UD PRN; Protocol PRN Reason: Hypoglycemia Protocol Stop: 07/17/21 10:10 Glucose (Glucose 40% Gel 15 Gm Tube) 15 - 30 gm PO UD PRN; Protocol PRN Reason: Hypoglycemia Protocol Stop: 07/17/21 10:10 Insulin Aspart (Insulin Aspart Per Unit) 0 units SC ACHS [facility] Stop: 07/17/21 11:29 Last Admin: 06/18/21 12:13 Dose: 1 units Documented by: Isosorbide Dinitrate (Isosorbide Dinitrate 40 Mg Tab) 40 mg PO TID@0700,1200,1700 [facility] Stop: 07/17/21 11:59 Last Admin: 06/18/21 12:20 Dose: 40 mg Documented by: Miscellaneous (Carbohydrates For Hypoglycemia ) 15 - 30 gm PO UD PRN PRN Reason: Hypoglycemia Protocol Stop: 07/17/21 10:10 Nitroglycerin (Nitroglycerin Sl 0.4 Mg/Tab Tab) 0.4 mg SL UD PRN PRN Reason: Chest Pain Stop: 07/17/21 07:36 Last Admin: 06/17/21 10:43 Dose: 0.4 mg Documented by: Ondansetron HCl (Ondansetron Inj 2 Mg/Ml 2 Ml Vial) 4 mg IV Q4H PRN PRN Reason: Nausea And Vomiting Stop: 07/17/21 11:10 Pantoprazole Sodium (Pantoprazole 40 Mg Tab) 40 mg PO DAILY [facility] Stop: 07/18/21 08:59 Last Admin: 06/18/21 08:00 Dose: 40 mg Documented by: Potassium Chloride (Potassium Chloride Crtab 20 Meq Tabcr) 20 meq PO TID WYATT Stop: 07/18/21 08:59 Last Admin: 06/18/21 09:00 Dose: 20 meq Documented by: Quetiapine Fumarate (Quetiapine Fumarate 25 Mg Tablet) 12.5 mg PO BID [facility] Stop: 07/17/21 20:59 Last Admin: 06/18/21 08:03 Dose: 12.5 mg Documented by: Senna/Docusate Sodium (Docusate Sodium/Senna 50/8.6mg Tab) 2 tab PO DAILY [facility]YATT Stop: 07/18/21 08:59 Last Admin: 06/18/21 08:02 Dose: 2 tab Documented by: Simethicone (Simethicone 80 Mg Chew) 80 mg PO QID PRN PRN Reason: Gas Stop: 07/17/21 11:21 Spironolactone (Spironolactone 25 Mg Tab) 50 mg PO QAM WYATT Stop: 07/18/21 08:59 Last Admin: 06/18/21 09:00 Dose: 50 mg Documented by: (1) Chest pain Chest pain type: unspecified Qualified Code(s): R07.9 - Chest pain, unspecified (2) CHF exacerbation Heart failure type: unspecified Qualified Code(s): I50.9 - Heart failure, unspecified (3) Hypertension Hypertension type: unspecified Qualified Code(s): I10 - Essential (primary) hypertension (4) CKD (chronic kidney disease), stage III Chronic kidney disease stage 3 subtype: stage 3b (GFR 30-44) Qualified Code(s): N18.32 - Chronic kidney disease, stage 3b
[2021-06-18] MEDS: amLODIPine BESYLATE 5 MG TAB PO SCH (20:56)
[2021-06-19 07:45] LABS: Hematocrit (blood only) 30.9 % (37-47); Hemoglobin 9.5 g/dL (12.0-16.0); Mean Corpuscular Hemoglobin 21.3 pg (25-34); Mean Corpuscular Hgb Conc 30.7 g/dL (32-36); Mean Corpuscular Volume 69.1 fL (80-100); Mean Platelet Volume 8.8 fL (7.4-10.4); Platelet Count 349 K/uL (130-400); RDW Coefficient of Variation 20.5 % (11.5-14.5); RDW Standard Deviation 51.1 fL (36.4-46.3); Red Blood Count 4.47 M/uL (4.2-5.4); White Blood Count 8.61 K/uL (4.8-10.8)
[2021-06-19 08:06] LABS: Albumin Globulin Ratio 1.4 (0.9-2); Albumin Level 3.5 gm/dl (3.4-5.0); BUN Creatinine Ratio 19.1 (10-20); Bilirubin,Total 0.7 mg/dl (0.2-1.0); Calcium 8.8 mg/dl (8.5-10.1); Creatinine Clr Calc Pharmacy 14.4 ml/min; Est GFR (African American) 23.7 ml/min; Est GFR (Non-African American) 20.5 ml/min; Globulin 2.5 gm/dl (2.5-4.0); Potassium 4.3 mmol/L (3.5-5.1)
[2021-06-19] MEDS: INSULIN ASPART PER UNIT SC SCH ×2 (08:55→12:51)
[2021-06-19] MEDS: ISOSORBIDE DINITRATE 40 MG TAB PO SCH ×2 (09:18→13:10)
[2021-06-19] MEDS: CLOPIDOGREL BISULFATE 75 MG TAB PO SCH (09:19)
[2021-06-19] MEDS: carvediloL 6.25 MG TAB PO SCH (09:19)
[2021-06-19] MEDS: PANTOprazole 40 MG TAB PO SCH (09:19)
[2021-06-19] MEDS: APIXABAN 2.5 MG TAB PO SCH (09:19)
[2021-06-19] MEDS: ATORVASTATIN 40 MG TAB PO SCH (09:20)
[2021-06-19] MEDS: SPIRONOLACTONE 25 MG TAB PO SCH (09:20)
[2021-06-19] MEDS: QUEtiapine FUMARATE 25 MG TABLET PO SCH (09:20)
[2021-06-19] MEDS: POTASSIUM CHLORIDE CRTAB 20 MEQ TABCR PO SCH (09:21)
--- NOTE | 2021-06-19 09:23 | Nephrology Progress Note ---
Date of Service June 19, 2021 Assessment & Plan (1) Hypertensive urgency: Plan: SBP 160-170s; goal is sbp 140-150s consistently over a few days; concerns about medication adherence at home noted and well documented ->>>continue lasix 60 mg IV tid ->>>lowered K to 20 mEq bid > monitor dosing needs closely -cont full dose amlodipine -cont lower dose coreg -continue imdur -avoid clonidine -wean 02 as tolerated >>>increased spironolactone 100 mg daily to start this am -agree w/ 1.5 L fluid limit and <2 gm daily Na diet -daily bmp >consider in future chlorthalidone, hydralazine (2) CKD (chronic kidney disease) stage 4, GFR 15-29 ml/min: Plan: presume progressive ckd 4 w/ L renal atrophy, R renal stent and labile creatinine due in part to multiple episodes of HTN urgency. she had 2 gm prote inuria last september though this can be distorted/inflated total from elevated BP. baseline creatinine is high ones to 2; had been 1.6-1.8 early last summer. no indication for urgent discussion of HD; she would be a poor candidate for this given her impaired cognitive status and inability to consent to/understand tx plan. willing to accept worse creatinine in order to control BP. creat 2.1 today acceptable, stable/plateau'd, and comparable to 06/17 admission values 2.1 -daily bmp Admission and Anticipated Discharge Date Admission Date: June 17, 2021 Subjective no acut einterval clinical events. continues to express strong desire for d/c home. seen on rounds this am 0930 Review of Systems Review of Systems: All systems reviewed & are unremarkable except as noted in Subjective Physical Exam Constitutional: well developed, well nourished, + frail appearing and cooperative; no acute distress up in chair Eyes: EOM intact bilaterally ENMT: Ears: no external ear abnormality Nose: no external nose abnormality Mouth: + dry oral mucous membranes Neck: no nuchal rigidity Respiratory: normal respiratory effort Auscultation: + diminished lung sounds (extremely kyphotic spine) Cardiovascular: Rate/Rhythm: regular rate and regular rhythm Heart Sounds: + murmur Extremities: no edema (resolved right greater than left lower extremity) Gastrointestinal (Abdomen): Inspection/Auscultation: normal bowel sounds Percussion/Palpation: abdomen soft; abdomen nontender Musculoskeletal: Extremities: strength 5/5 throughout Skin: no rashes, warm and dry Psychiatric: Orientation: oriented to person and oriented to place Insight: + limited insight Judgement: + limited judgement Results & Data ([facility]) Vital Signs (Past 12 Hours) Vital Signs Temp Pulse Pulse Resp BP BP Pulse Ox 06/19/21 09:00 36.5 C 69 18 149/72 H 94 06/19/21 07:29 62 06/19/21 04:00 36.7 C 65 16 170/63 H 99 06/18/21 23:05 72 06/18/21 22:54 36.6 C 82 24 172/69 H 90 Laboratory Results 06/19/21 07:02 06/19/21 07:02
[2021-06-19] MEDS: DOCUSATE SODIUM/SENNA 50/8.6MG TAB PO SCH (09:24)
[2021-06-19] MEDS: FUROSEMIDE 40 MG/4 ML VIAL IV SCH ×2 (09:27→13:55)
[2021-06-19] MEDS ORDERED: SPIRONOLACTONE 25 MG TAB PO ONE (09:45)
[2021-06-19] MEDS ORDERED: METOPROLOL TARTRATE 1 MG/ML VIAL IV PRN (11:33)
--- NOTE | 2021-06-19 15:04 | Hospitalist Progress Note ---
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 Nephrology managing- Goal SBP 140s-150s over few days. Contiinue lasix 60 mg iv bid with potassium, continue amlodipine, coreg and imdur. Aldactone added by nephro. Salt and fluid restriction. - Cardio following- not a candidate for invasive cardiac procedure given her cognitive status, frailty and renal insufficiency - will discharge home with hospice services per family request continue home medications CKD 4 with left renal atrophy, right renal stent crea 2.2 Nephro consulted Chest pain - resolved H/o recent lacunar stroke- on plavix and eliquis Diabetes mellitus type 2- A1c 6.9. ISS PRN given DVT PPx: scds, Eliquis CODE: DNR/DNI Dispo: d/c home with home health services plan of care discussed with patient and her daughter at bedside in detail and at length all questions answered they are understanding, agreeable, comfortable with the plan of care Admission and Anticipated Discharge Date Admission Date: June 17, 2021 Subjective ff up for HTN urgency, CHF, etc seen resting in bed, comfortable daughter at bedside visiting patient states she feels fine overall no chest pain, dyspnea, palpitations, dizziness states she is ready and would like to be discharged home no other symptoms patient also agreeable for d/c with home hospice services Review of Systems Review of Systems: all noted and negative except for above Physical Exam Physical Exam: General- oriented x 3, not in distress, speaks in sentences with no effort or accessory muscle use Eyes- anicteric Neck- no JVD Lungs- clear breath sounds bilaterally, no rales/wheezes Heart- normal rate, regular rhythm; no murmurs Abdomen- normal bowel sounds, nondistended, soft, nontender Extremities- no pretibial edema, no calf tenderness Neuro- alert, oriented x 3; no gross focal neurologic deficits Skin- warm & dry Results & Data Results & Data ([facility]) Vital Signs (Past 12 Hours) Vital Signs Temp Pulse Pulse Resp BP BP Pulse Ox 06/19/21 13:09 114 H 128/73 06/19/21 12:00 36.7 C 81 20 149/74 H 96 06/19/21 11:30 36.6 C 94 H 18 149/74 H 96 06/19/21 09:00 36.5 C 69 18 149/72 H 94 06/19/21 07:29 62 06/19/21 04:00 36.7 C 65 16 170/63 H 99 all noted and reviewed including below (1) CHF exacerbation Heart failure type: unspecified Qualified Code(s): I50.9 - Heart failure, unspecified (2) CKD (chronic kidney disease), stage III Chronic kidney disease stage 3 subtype: stage 3b (GFR 30-44) Qualified Code(s): N18.32 - Chronic kidney disease, stage 3b (3) Chest pain Chest pain type: unspecified Qualified Code(s): R07.9 - Chest pain, unspecified (4) Hypertension Hypertension type: unspecified Qualified Code(s): I10 - Essential (primary) hypertension
[2021-06-19] MEDS ORDERED: POTASSIUM CHLORIDE CRTAB 20 MEQ TABCR PO SCH (21:00)
[2021-06-20] MEDS ORDERED: SPIRONOLACTONE 100 MG TAB PO SCH (09:00)
--- NOTE | 2021-07-01 18:28 | Discharge Summary ---
Date of Service July 01, 2021 Admission HPI Per Admitting Provider This is an 89 yo F with PMhx of chronic systolic heart failure (EF 35 to 40%, TTE 2020), valvular 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, mild TR, severe MR), underlying pulmonary hypertension, chronic LBBB, hypertension, history CVA, PVD, asthma/COPD as per records, 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, DM2 diet- controlled, CKD (baseline creatinine 1.6-1.8), chronic anemia (baseline hemoglobin 8-9), dementia, past tobacco abuse. Recent admission here at [facility] from 05/22 -05/24 for lacunar CVA/stroke. Plavix added to regimen at that time. Cardiology recently increase isosorbide dinitrate to 40 mg 3 times daily on discharge for uncontrolled BP. She was again admitted here at [facility] from 06/12-06/13 for similar respiratory failure symptoms associated with CHF. Pt woke up at 2:00 AM with acute left-sided chest pain which she rated as a 10/10. Afterward she noticed that she was increasingly short of breath at rest, and felt like she was taking shallow breaths with the inability to take a deep breath. She admits to feeling nauseous, but no vomiting. There has been increased swelling in her right lower leg compared to normal, but states that it is always typically slightly more swollen than left. She does have some swelling in the left around her ankle. Patient does not weigh herself on a daily basis, and does not know what her dry weight is. She drinks 1 L of water per day and has this sitting next to her at bedside. Reports her mouth is very dry so keep taking small sips. Her daughter brought her here to the ER due to her worsening symptoms but she is not present at bedside. She has been on bipap intermittently for shortness of breath during the past admissions. Today pt was given IV lasix 40 mg in the ER for concerns for volume overload with CHF. Will start her also on nebulizers routinely as she is wheezing and using accessory muscles to breath. She denies chest pain currently and wants treatment today. Pt ultimately states she would like to return home and be comfortable. Plan to discuss possible transition to hospice with her daughter. Admission Exam (Per Admitting) Constitutional GENERAL: Slightly uncomfortable, no respiratory distress SKIN: Pallor, warm HEENT: Pale palpebral conjunctivae, no ptosis, dry buccal mucosa, BiPAP in place NECK : Supple, no tenderness CHEST : Decreased breath sounds A, no tenderness HEART : RRR, systolic murmur ABDOMEN: Some distention, nontender EXTREMITIES : Minimal LE swelling, no LE tenderness, no other conspicuous deformities noted NEUROLOGIC : Coherent, no facial asymmetry, no other gross focality Discharge Data Consultations 06/17/21 08:48 ED Decision to Admit Stat 06/17/21 09:10 Consult Cardiology Routine 06/17/21 09:52 Consult Nephrology Routine Hospital Course (1) Chest pain: (2) CHF exacerbation: (3) CHF due to valvular disease: (4) Coronary artery disease: (5) Hypertension: (6) Dyslipidemia: (7) Mild mitral stenosis: (8) Mitral regurgitation: (9) Mild aortic stenosis: (10) CKD (chronic kidney disease), stage III: (11) AMARIS (acute kidney injury): (12) DM type 2 (diabetes mellitus, type 2): per previous attending notes with addendum: Hypertensive urgency Chronic systolic CHF with mod-sev MR and PAP of 40-50 and EF 35-40% (echo 05/2021) - concern for medication noncompliance. Nephrology managing- Goal SBP 140s-150s over few days. Contiinue lasix 60 mg iv bid with potassium, continue amlodipine, coreg and imdur. Aldactone added by nephro. Salt and fluid restriction. - Cardio following- not a candidate for invasive cardiac procedure given her cognitive status, frailty and renal insufficiency - will discharge home with hospice services per family request continue home medications CKD 4 with left renal atrophy, right renal stent crea 2.2 Nephro consulted Chest pain - resolved H/o recent lacunar stroke- on plavix and eliquis Diabetes mellitus type 2- A1c 6.9. ISS PRN given DVT PPx: scds, Eliquis CODE: DNR/DNI Dispo: d/c home with home health services plan of care discussed with patient and her daughter at bedside in detail and at length all questions answered they are understanding, agreeable, comfortable with the plan of care
--- NOTE | 2021-07-02 06:15 | Coding Query ---
CONGESTIVE HEART FAILURE To Promote full compliance with coding requirements relating to patient care, physician participation is requested in all cases of hedis review nurse uncertainty. Please assist us with the following questions. A diagnosis of Congestive Heart Failure is documented in the patient's medical record. To accurately code this diagnosis and to compare patient severity, we ask that you specify the type of heart failure by placing an X within the parenthesis (x). SYSTOLIC HEART FAILURE ( ) Acute ( ) Chronic ( x) Acute on Chronic ( ) Rheumatic ( ) Unknown DIASTOLIC HEART FAILURE ( ) Acute ( ) Chronic ( ) Acute on Chronic ( ) Rheumatic ( ) Unknown COMBINED SYSTOLIC AND DIASTOLIC HEART FAILURE ( ) Acute ( ) Chronic ( ) Acute on Chronic ( ) Rheumatic ( ) Unknown Was the CHF Present On Admission? Please check the appropriate box: ( x) Present on Admission ( ) Not Present On Admission ( ) Clinically undetermined Thank you CONNIE Maldonado [facility]PITALIzabella
== END 2021-06-19 16:32 | disposition hospice, home (50) | DRG 291 ==
LOC: ED 06:54 → SUATTDRO 08:56 → EDINP 08:56 → 2S 10:39